=== PATIENT | female | born 1950 | race Caucasian/White ===

== ENCOUNTER → 2018-08-26 16:52 | Outpatient (CLI) | payer MEDICARE, OTHER, SELFPAY ==
--- NOTE | 2018-08-26 | BRBX_PTH ---
PATIENT: ANDRE LUTHER LOC: [facility] U#:[id number] AGE/SX: 75/F ROOM: RE08/26/[address]: Dr. Phillip Yan MD : 1950 BED: DIS: SPEC #: [id number] RECD: 08/26/18 16:48 STATUS: SHARONA ISIS #: [id number] CECILE: 08/26/18 00:[address]: Phillip Yan DEPT: SURGICAL PATHOLOGY RECD BY: Juan De La Cruz ENTERED: 08/27/18 11:06 SP TYPE: BREAST BX OTHR DR: Dr. Osiris Carlos MD Tissues: Right breast, NOS Procedures: Surgery Specimen Level IV HEADER OPERATION: US guided right breast biopsy PRE-OP DIAGNOSIS: Abnormal mammogram TISSUE SUBMITTED: Right breast biopsy ISCHEMIC TIME: 3 minutes FIXATION TIME: 27 hours MICROSCOPIC DIAGNOSIS Right breast, ultrasound-guided core biopsy: Invasive ductal carcinoma, nuclear grade 2 (1 cm in greatest length). See comment. MORGAN:mallory 08/28/18 COMMENT Immunohistochemistry ([id number]) supports the above diagnosis. ER/WA/Luh6yfb studies are being performed on sections of tumor and the results from this study will be reported separately ([id number]). Case has been reviewed in consultation with Dr. Hawley who concurs with the above diagnosis. IDC:AM MICROSCOPIC DESCRIPTION Slides are reviewed. GROSS DESCRIPTION Received is one container labeled with the patient's name and not further designated. The specimen consists of multiple elongated fragments of carlton-yellow fibroadipose tissue that in aggregate measure 1.5 x 0.7 x 0.1 cm. The entire specimen is submitted in one cassette. / MORGAN:mallory 08/27/18 TC:0 CPT: 99629 ADDENDUM ADDENDUM ADDENDUM ADDENDUM ADDENDUM ADDENDUM ADDENDUM ADDENDUM ADDENDUM ADDENDUM ADDENDUM ADDENDUM ADDENDUM 09/05/2018 11:25 ADDENDUM 09/05/2018 11:25 ADDENDUM 09/05/2018 11:25 ADDENDUM 09/05/2018 11:25 ADDENDUM 09/05/2018 11:25 This addendum is added to incorporate an outside pathology consultation report. The case was examined at [facility] (#[id number]) and the following diagnosis was rendered. Right breast, ultrasound-guided needle core biopsy: Invasive ductal carcinoma, nuclear grade 1. Estrogen receptor is positive, greater than 95% nuclei staining. Progesterone receptor is positive, 80% of nuclei staining. HER2 by IHC is negative, +0. Please see complete above mentioned consultation report in EMR
--- NOTE | 2018-08-26 | IMM_PTH ---
PATIENT: ANDRE LUTHER LOC: [facility] U#:[id number] AGE/SX: 75/F ROOM: RE08/26/[address]: Dr. Phillip Yan MD : 1950 BED: DIS: SPEC #: [id number] RECD: 08/28/18 12:09 STATUS: SHARONA REQ #: [id number] CECILE: 08/26/18 00:[address]: Phillip Yan DEPT: IMMUNOHISTOCHEMISTRY RECD BY: Imani Morales ENTERED: 08/28/18 12:11 SP TYPE: IMMUNO OTHR DR: Dr. Osiris Carlos MD Tissues: Right breast, NOS Procedures: CALPONIN-1 (add) CK5-6 (add) CK8 (add) E-CAD (add) HER2 TENZIN (add) KI-67 (add) P53 (add) NJ (add) P40 (add) ER (initial) PHYSICIAN & INSTITUTION [place] [id number] SPECIMEN INFORMATION: Tissue Source: Right breast Clinical Info: Abnormal mammogram Specimen Number: [id number] CPT code: 93172, 03198 x6, 44439 x3 METHODOLOGY: Deparaffinized sections of prefer/formalin-fixed tissue or PAP/DQ stained slides are incubated with monoclonal/polyclonal antibodies/oligonucleotide probes. Localization is made via biotin free immunoperoxidase method. Appropriate controls are performed and reacted as expected. Results on target cell population are indicated in the following table: RESULTS: ANTIBODY / CLONE RESULT E-Cad (ECH-6) positive CK8 ([id number]) positive CK5-6 (D5 & 1684) negative Ki-67 (30-9) positive, low P53 (DO-7) negative P40 (BC28) negative Calponin-1 (OX869J) negative MORPHOMETRIC ANALYSIS ER (clone 6F11) >95%, strong NJ (clone 16/1E2) >95%, moderate Her-2Neu (clone CB11) 0 The prognostic test for HER2 is performed on formalin-fixed paraffin embedded tissue. A 3+ (positive) staining pattern is defined as intense, homogeneous, complete, circumferential membranous staining in >10% of contiguous tumor cells. A similar weak (2+) staining pattern is interpreted as equivocal. ALEJANDRA follow-up testing is recommended for all equivocal cases. Positivity/negativity for ER/NJ is reported if > or < 1% of the tumor cells are immuno- reactive, respectively. The ASCO/CAP criteria is used for scoring. Reference: Journal of Clinical Oncology, 2013; 31:1862-2608 & 2010; 16:1476-5890. Duration of fixation: 27 Hrs; Sample Adequate: Yes. These assays have not been validated on decalcified tissues. Results should be interpreted with caution given the likelihood of false negativity on decalcified specimens. These tests were developed and their performance characteristics determined by [facility]. They may not have been cleared or approved by the [place]. Food and Drug Administration. The FDA has determined that such clearance or approval is not necessary. INTERPRETATION: Right breast, ultrasound-guided core biopsy: Invasive ductal carcinoma, nuclear grade 2. Positive for estrogen receptors (favorable prognostic indicator). Positive for progesterone receptors (favorable prognostic indicator). Negative for overexpression of WIQ0sqs. SJ:mallory 08/28/18
--- OUTSIDE RECORDS SUMMARY | 2018-10-22 09:24 | XMS RPT_ITS ---
:1950 Author Organization [facility] Care Team Providers Name Role Phone MIKE DURAN Attending Unavailable BONG MCCANN Attending Unavailable CARLA CHRISTIAN Referring Unavailable GEETHA GARCIA ([place]) Referring Unavailable DARINEL AKERS Referring Unavailable DARINEL AKERS Referring Unavailable DARINEL AKERS Referring Unavailable MIKE BRONSON ([facility]) Attending Unavailable MIKE DURAN Referring Unavailable MARIALUISA BROWN Attending Unavailable MARIALUISA BROWN Referring Unavailable ESTRADA REDDY Attending Unavailable INESSA LOVE Referring Unavailable INESSA LOEV Attending Unavailable INESSA LOVE Referring Unavailable INESSA LOVE Attending Unavailable CHRISTIAN AGUIRRE Attending Unavailable INESSA LOVE Referring Unavailable LETHAYER, CHRISTIAN Referring Unavailable CHRISTIAN AGUIRRE Referring Unavailable HORTENCIA YAN Attending Unavailable INESSA LOVE Referring Unavailable DARINEL AKERS Attending Unavailable HORTENCIA YAN Attending Unavailable ALANA AKERSECSHINE Brand Referring Unavailable INESSA LOVE Attending Unavailable JASENBMYER, CHRISTIAN Admitting Unavailable LETHAYERCHRISTIAN Attending Unavailable GEETHA GARCIA (PA) Referring Unavailable BONG MCCANN Referring Unavailable GROBMYERCHRISTIAN Referring Unavailable GROBMYER, CHRISTIAN Referring Unavailable GROBMYER, CHRISTIAN Admitting Unavailable GROBMYER, CHRISTIAN Attending Unavailable GEETHA GARCIA (PA) Referring Unavailable CHRISTIANO DHALIWAL Attending Unavailable CHRISTIAN AGUIRRE Referring Unavailable DARINEL AKERS Referring Unavailable Hortencia Yan Attending Unavailable Hortencia Yan Referring Unavailable Osiris Carlos Primary Care Unavailable PROBLEMS PROBLEMS DATE TYPE CONDITION / CODE ATTENDING STATUS SOURCE 09/15/2018 Active Other acute GROBMYER, Active [facility] postprocedural pain CHRISTIAN [place] / G89.18(ICD-10) Repository 09/05/2018 Active Malignant neoplasm Active [facility] of upper-outer [place] quadrant of right Repository female breast / C50.411(ICD-10) 09/05/2018 Active Estrogen receptor [facility] positive status [place] (ER+) / Repository Z17.0(ICD-10) 09/05/2018 Active Vitamin D NA Active [facility] deficiency, [place] unspecified / Repository E55.9(ICD-10) 09/05/2018 Active Disorder of breast, Active [facility] unspecified / [place] N64.9(ICD-10) Repository 09/05/2018 Active Unspecified lump in NA [facility] unspecified breast / [place] N63.0(ICD-10) Repository 08/12/2018 Active Other abnormal and NA Active [facility] inconclusive [place] findings on Repository diagnostic imaging of breast / R92.8(ICD-10) 07/28/2018 Active Asymptomatic [facility] menopausal state / [place] Z78.0(ICD-10) Repository 07/28/2018 Active Encounter for [facility] gynecological [place] examination Repository (general) (routine) without abnormal findings / Z01.419(ICD-10) 07/28/2018 Active Encounter for [facility] screening for [place] malignant neoplasm Repository of cervix / Z12.4(ICD-10) 07/28/2018 Active Encounter for [facility] screening mammogram [place] for malignant Repository neoplasm of breast / Z12.31(ICD-10) 04/08/2018 Active Dizziness and NA Active [facility] giddiness / [place] R42(ICD-10) Repository 12/19/2017 Active Unknown / MARIALUISA BROWN Active [facility] UNK(Unknown) E [place] Repository 11/01/2017 Active Pain in right lower [facility] leg / [place] M79.661(ICD-10) Repository PROCEDURES PROCEDURES No Procedure Records FoundRESULTS RESULTS [facility] SURG BREAST Observed: 09/15/2018 Status: F Source: [facility] SPECIMEN RT 5:00 PM [facility] REPOSITORY * * *Final Report* * * DATE OF EXAM: Sep 15 2018 5:00PM [facility] [place] [place] [facility] SURG BREAST SPECIMEN RT / PROCEDURE REASON: multiple diagnoses * * * * Physician Interpretation * * * * RESULT: #[id number] - [facility] NDL LOC W [place] GD RT #[id number] - [facility] SURG BREAST SPECIMEN RT DIGITAL MAMMOGRAPHY GUIDED WIRE LOCALIZATION RIGHT BREAST WITH POST DIGITAL MAMMOGRAPHIC IMAGING AND RADIOGRAPHIC SPECIMEN IMAGIN09/15/2018 HISTORY: Multiple Diagnoses The patient presents for right mammographic (crosshair) guided needle localization as recommended from recent imaging study. Pre and post localization mammographic images were obtained. Multiple Diagnoses. PATIENT CONSENT: A time out was performed immediately prior to procedure start with the radiology team, correctly identifying the patient name, date of , procedure, anatomy (including marking of site and side), patient position, relevant diagnostic and radiology test results, safety precautions, and procedure-specific equipment needs. The procedure was explained to the patient including the risks, benefits and alternatives. Medications and allergies were also reviewed. The risks, including but not limited to infection and bleeding, were reviewed by the performing physician and the patient agreed to undergo the procedure. The radiologist and technologist were present throughout the entire procedure. Audible Time Out Time: 731 Procedure Start Time: 732 Procedure Stop Time: 08 Dr. Vilchis was present during all critical and plascencia portions of the procedure and scrubbed in and immediately available to furnish services during the entire procedure. The resident programs assistant radiologist was Dr. Eisenberg. The resident programs assistant radiologist performed the following procedural tasks: Lidocaine administration, mammographic guided wire localization. Correlation is made to exams dated: 09/05/2018 breast MRI - [facility], 09/05/2018 mammogram - [facility], 08/12/2018 mammogram, 08/12/[address] - [facility], 07/28/2018 mammogram - [facility], and 07/25/2017 mammogram - [facility]. A wire localization using digital mammography guidance was performed for the marker clip located in the right breast lower outer aspect middle depth. This was described on the previous mammography report. The skin was prepped in the usual manner. Local anesthetic was administered to the access site. The localization was approached from the lateral aspect. A 10.0 cm modified Kopans hookwire apparatus was inserted adjacent to the marker under digital mammography guidance. The patient received additional local anesthetic during the procedure. Post placement digital mammographic imaging demonstrates the tip traverses adjacent to the marker. IMPRESSION: WIRE LOCALIZATION Wire localization for the marker clip in the right breast lower outer aspect middle depth was successful with no apparent post procedure complications. The imaged specimen includes the lesion, a biopsy clip, and the distal portion of the localization wire. The procedure was reviewed by a staff physician. SUMMARY: Urgent Results: Additional images confirmed that the target (with localization clip) were contained in the specimen radiograph. The results of the specimen radiograph were discussed with Dr. Sherwood in the O.R. on 09/15/18 at 1115. Lisa Eisenberg M.D. pb,joshua/robert:09/15/2018 12:54:36 Manager Clinical Pharmacy(s): RT Leena(Ephraim)(M), [facility]; RT Leana(R)(M), [facility] Multiple national specialty organizations have released breast cancer screening guidelines for women at average risk for developing breast cancer - guidelines that are based on both evidence and opinion, yet differ on when to start and how often to screen for breast cancer. With representation from Breast Imaging, Internal Medicine, Women's Health, Family Medicine, and Medical/Surgical Oncology, the [facility] has carefully reviewed the data and reached the following consensus: 1) All women should engage in shared decision-making with their providers to decide when to start and how often to screen; 2) All women should have the opportunity to start screening mammography at age 40; 3) For women ages 45-55, we recommend annual screening mammograms; 4) For women ages 55 and over, we support both the transition from an annual to a biennial interval if this aligns more with patient's values and preferences, or continuation with annual screening; 5) All women should discuss with their providers when to stop screening mammograms. Benefit Authorizer: Robert Transcribe Date/Time: Sep 15 2018 8:06A Dictated by : GURJIT EISENBERG MD This examination was interpreted and the report reviewed and electronically signed by: LISA VILCHIS MD on Sep 15 2018 12:54PM EST [id number] NURSING PROG Observed: 09/15/2018 Status: COMPLETED Source: [facility] 3:34 PM [facility] REPOSITORY HNO ID: [id number] Author: Brooke (Rn) MYLA Felix Service: Nursing Author Type: Registered Nurse Type: Nursing Progress Note Filed: 09/15/2018 3:35 PM Note Text: 1515: Assumed care of pt from MYLA Mark. Discharge instructions and prescriptions reviewed by previous nurse. ANES POST Observed: 09/15/2018 Status: COMPLETED Source: [facility] 3:30 PM [facility] REPOSITORY HNO ID: [id number] Author: Kristian Martinez Service: Anesthesiology Author Type: Anesthesiologist Type: Anesthesia PostOp Filed: 09/15/2018 3:31 PM Note Text: POST ANESTHESIA EVALUATION NOTE SERVICE DATE: 09/15/2018 SERVICE TIME: 3:31 PM : 1950 Vitals: 09/15/18 0958 09/15/18 1204 09/15/18 1300 09/15/18 1400 Temp: 37 ?C (98.6 ?F) 36.6 ?C (97.9 ?F) 36.6 ?C (97.9 ?F) 36.2 ?C (97.2 ?F) 09/15/18 1300 09/15/18 1315 09/15/18 1400 09/15/18 1430 BP: 125/62 120/57 142/68 122/62 09/15/18 1300 09/15/18 1315 09/15/18 1400 09/15/18 1430 Pulse: (!) 55 66 77 83 09/15/18 1300 09/15/18 1315 09/15/18 1400 09/15/18 1430 Resp: 09 18 18 18 09/15/18 1300 09/15/18 1315 09/15/18 1400 09/15/18 1430 SpO2: 95% 96% 98% 96% Validated Vital Signs: Yes POST ANES STATUS: No apparent anesthetic complications. The patient is appropriately hydrated with stable respiratory and cardiovascular status. Patient has safe and adequate airway control. The patient has appropriate pain relief and no significant post operative nausea or vomiting. The patient has achieved baseline mental status. Intra-Operative Events: No Significant Anesthesia Events Further assessment by Anesthesia Service: None Other Remarks: SIGNATURE: Kristian Martinez MD PATIENT NAME: Andre Luther DATE: September 15, 2018 TIME: 3:31 PM PAGER/CONTACT #: [phone] PT ED Observed: 09/15/2018 Status: COMPLETED Source: [facility] 2:03 PM [facility] REPOSITORY HNO ID: [id number] Author: Deedee (Rn) MYLA Munoz Service: (none) Author Type: Registered Nurse Type: Patient Education Filed: 09/15/2018 2:34 PM Note Text: PATIENT EDUCATION TOPIC: PROCEDURE / SURGERY: Procedure/Surgery: PATIENT NAME: Andre Luther PATIENT LOCATION: [place] [address]/[place] [address] READINESS TO LEARN COGNITIVE ABILITY: Alert and oriented MOTIVATION TO LEARN: Eager FAMILY SUPPORT: High - Very involved in pt care INSTRUCTION PROVIDED TO: Patient and family member PATIENT LEARNS BEST BY: Multiple methods FACTORS AFFECTING LEARNING: None PHYSICAL LIMITATIONS AFFECTING LEARNING: None LEARNING RESPONSE DIAGNOSIS: ADULT: Well Adult PATIENT/FAMILY RESPONSE: Verbalizes understanding of: MEDICAL REGIMEN-Importance of following prescribed medical regimen POST-OPERATIVE INSTRUCTIONS-Correct actions to take to reduce postoperative complications POST-PROCEDURE INSTRUCTIONS-Correct actions to take to reduce post procedure complications -Patient instructed to not resume any of her vitamins until 1 week postop per primary team. METHOD OF INSTRUCTION: Written instruction - handouts Verbal instruction FOLLOW-UP PLAN: Patient instructed to call with any further issues Follow-up with Primary Care Contact information given. INSTRUCTIONAL AIDS USED: NA SUPPLEMENTAL MATERIAL PROVIDED TO PATIENT: None REFERRAL (RECOMMENDATION): None Electronically Signed By: Deedee Munoz RN PLAN OF CARE Observed: 09/15/2018 Status: COMPLETED Source: [facility] 12:31 PM [facility] REPOSITORY HNO ID: [id number] Author: Joan Akers (Blue Print Control Clerk) Service: (none) Author Type: (none) Type: Plan of Care Filed: 09/15/2018 12:31 PM Note Text: ENVIRONMENTAL ATTORNEY BEDSIDE DELIVERY SURVEY 1. Patient to use [facility] Bedside Delivery - NO prefer own pharmacy 2. If fax, patient would like us to fax prescriptions to Pharmacy of choice a. Pharmacy: b. Location: c. Phone: 3. Insurance card on file - NO 4. Credit card for payment - NO Per yellow sticker OPERATIVE NO Observed: 09/15/2018 Status: COMPLETED Source: [facility] 11:33 AM [facility] REPOSITORY HNO ID: [id number] Author: Christian Aguirre Service: General Surgery Author Type: Physician Type: Operative Report Filed: 09/15/2018 11:36 AM Note Text: OPERATIVE/PROCEDURE REPORT LOG ID: [id number] SURGERY/PROCEDURE DATE: 09/15/2018 INCISION/PROCEDURE START TIME: 10:51 AM INCISION CLOSE/PROCEDURE END TIME: 11:38 AM SURGEON(S)/PROCEDURALIST(S) AND SPORTS TEAM MANAGER(S): Surgeon(s) and Role: * Christian Aguirre - Primary Physician Telecom Network Manager: Geetha Garcia (Pa) SURGERY/PROCEDURE(S): Right partial mastectomy with wire localization Right deep axillary sentinel node biopsy Right breast injection of dye for LN mapping ANESTHESIA: General SURGERY/PROCEDURE DETAILS: The patient was taken to the OR and placed supine on the OR table. 1 huddle and 1 timeout were performed. Antibiotics was given IV within 30 minute prior to the incision x 1 dose only. After anesthesia was administered, the right breast and axillae were?prepped and draped in a standard sterile fashion. I confirmed positioning of the patient with the nurse and anesthesiologist. ?I injected blue dye into the right breast for LN?mapping. ?I made a small incision in right axillary area and dissected into the right deep axilla. I removed the deep sentinel node tissue?which was?hot and blue. The node was?sent for frozen which was negative. I confirmed hemostasis and closed the wound in layers. There were no clinically suspicious nodes in the axillary area. I then made an incision in the right outer breast with scalpel and performed the lumpectomy sharply. I removed the tumor marked by the wire with clear gross margins. I obtained 6?additional cavity margins which were sent for permanent section oriented. I obtained a specimen radiograph which confirmed the clip in the specimen. The lumpectomy was sent for permanent section. ?I?placed clips to mike the lumpectomy cavity. ?I carefully?confirmed hemostasis. The wound was closed in layers in usual fashion. Sponge and instrument counts were are reportedly correct x 2 at the conclusion of this portion of the?case. A sterile dressing was applied. PRE-OP/PRE-PROCEDURE DIAGNOSIS: right breast cancer POST-OP/POST-PROCEDURE DIAGNOSIS: same ESTIMATED BLOOD LOSS: 40 mls SPECIMENS: to pathology IMPLANTABLE DEVICES: None DRAINS: None COMPLICATIONS: None PARTICIPATION IN SURGERY/PROCEDURE: I performed the procedure with assistance. AMI Garcia was the resident programs assistant. There was no resident available to assist with this case. SIGNATURE: Christian Aguirre MD PATIENT NAME: Andre Luther DATE: September 15, 2018 TIME: 11:33 AM PAGER/CONTACT #: [phone] Observed: 09/15/2018 Status: COMPLETED Source: [facility] 10:53 AM [facility] REPOSITORY O ID: [id number] Author: Tika Wood Mamm-T Service: (none) Author Type: (none) Type: Progress Notes Filed: 09/15/2018 10:57 AM Note Text: Double Identification Patient's idenity was verified by name and : Yes Procedure: Mammogram Needle Localization Site Verification: right No Nursing No Allergies ALLERGIES Allergen Reactions - Doxycycline Hyclate Intolerance Reflux - Cephalosporins Rash - Codeine GI Upset - Dust - Ragweed - Howie [Other] Is the patient having any pain? None Physician, Nurse, Technologist: Tika Wood Mamm-T Focus review of allergies and medicines done at consent PREOPERATIVE/PROCEDURAL VERIFICATION: Patient verified by: Name, Medical Record Number and Date of Procedure to be performed: Mammogram Needle Localization Site of the procedure confirmed:Yes Site:right Patient position: Sitting Equipment/implant present:Wire and Imaging Data Staff involved: Mitesh VILCHIS MD Relevant documentation, images, implants or special equipment present: Yes MARKING THE SITE: Procedural site verified by:Physically marking the site on or near incision site, with persistent marker and remains visible once patient prepped. PROCEDURAL TIME OUT: All team activity stops Time out verification includes:Audible time-out documented: Yes. Time: 7:32 Two Patient Identifiers Correct side and site marking Accurate Consent Agreement on the procedure to be done Correct Positioning Imaging and Test Results Properly Labeled and Displayed Safety Precautions Based on Patient History or Medication Alcohol-based skin prep unit dose applicator used: ChloraPrep No soaking of the patient's hair or linens noted Excess prep absorbed by sterile towels Towels removed prior to draping NUMBER OF SPECIMENS SENT TO LAB: 0 Sign in Communication: Completed Time Out: Team Confirms the Correct Patient, Correct Procedure, Correct Site and Site Marking, Correct Position (if applicable). Time: 7:32 Affirmation of Time Out: N/A Sign Out Discussion: Completed PT ED Observed: 09/15/2018 Status: COMPLETED Source: [facility] 9:52 AM [facility] REPOSITORY HNO ID: [id number] Author: Joy Cantu RN Service: Nursing Author Type: Registered Nurse Type: Patient Education Filed: 09/15/2018 9:52 AM Note Text: PRE OP LEARNING ASSESSMENT PROCEDURE/SURGERY: SURGERY: safety protocols READINESS TO LEARN COGNITIVE ABILITY: Alert and oriented MOTIVATION TO LEARN: Eager FAMILY SUPPORT: High - Very involved in pt care PATIENT LEARNS BEST BY: Individual Instruction Verbal Instruction FACTORS AFFECTING LEARNING: None PHYSICAL LIMITATIONS AFFECTING LEARNING: None Electronically Signed By: Joy Cantu RN In Department: HOSP MAIN M021 NM LYMPH NODE Observed: 09/15/2018 Status: F Source: [facility] IMAGING 9:14 AM [facility] REPOSITORY * * *Final Report* * * DATE OF EXAM: Sep 15 2018 9:14AM N 0033 - NM LYMPH NODE IMAGING / PROCEDURE REASON: multiple diagnoses * * * * Physician Interpretation * * * * BREAST LYMPHOSCINTIGRAPHY: HISTORY: Newly diagnosed right-sided breast cancer. Assess for sentinel lymph node. TECHNIQUE: Prior to radiopharmaceutical administration, the injection site was verified with the electronic medical record and with the nuclear reactor operator. Patient medications and drug allergies were reviewed and no contraindication to administration of lidocaine was identified. Skin of the right breast was cleansed with iodophor and alcohol. 470 microcuries of filtered technetium-99m sulfur colloid combined with 40 mg Lidocaine were injected in three aliquots into the retroareolar tissue of the right breast. RESULT: No discrete foci of activity are seen to suggest possible sentinel lymph node sites. IMPRESSION: NO SENTINAL LYMPH NODE IS IDENTIFIED AT THE TIME OF IMAGING. Benefit Authorizer: PSCB Transcribe Date/Time: Sep 15 2018 9:32A Dictated by : MAINOR GAY MD This examination was interpreted and the report reviewed and electronically signed by: HORTENCIA DERAS MD on Sep 15 2018 9:40AM EST [id number] Observed: 09/15/2018 Status: COMPLETED Source: [facility] 8:57 AM [facility] REPOSITORY HNO ID: [id number] Author: Chirag Morin [facility] Service: (none) Author Type: (none) Type: Progress Notes Filed: 09/15/2018 9:01 AM Note Text: RADIOLOGY SERVICE PROGRESS NOTE SERVICE DATE: 09/15/2018 SERVICE TIME: 9:01 AM PATIENT IDENTITY VERIFICATION COMPLETED USING TWO (2) METHODS: Patient confirmed name and Date of verbally. PATIENT GENDER DATA: .female : No ALLERGIES: Reviewed and unchanged MEDICATIONS REVIEWED: Not applicable PATIENT RELEVANT IMPLANT DATA REVIEWED: Not Applicable CREATININE: Creatinine Date Value Ref Range Status 09/05/2018 0.51 (L) 0.58 - 0.96 mg/dL Final 04/08/2018 0.75 0.58 - 0.96 mg/dL Final 09/13/2017 0.77 0.58 - 0.96 mg/dL Final Creatinine (POCT) Date Value Ref Range Status 09/05/2018 0.80 0.7 - 1.4 mg/dL Final eGFR-All Other Races Date Value Ref Range Status 09/05/2018 >60 . Final Comment: eGFR (Estimated GFR) Units of measure: mL/min/1.73 meters squared eGFR is derived from the reexpressed MDRD Study equation using the following parameters: serum creatinine, age, gender and race. The creatinine assay has been calibrated to be traceable to IDMS. An eGFR <60 mL/min/1.73m2 for >3 months is consistent with chronic kidney disease. Refer to KDOQI guidelines for clinical interpretation. In patients with unstable renal function, e.g. those with acute kidney injury, the eGFR may not accurately reflect actual GFR. eGFR- Date Value Ref Range Status 09/05/2018 >60 Final P.O.C.T. RESULTS: N/A September 15, [address] PERFORMED: No IV SITE: NM only - not applicable, oral or physician administered agents given to patient POST EXAM PIV STATUS: Not applicable PROCEDURE TYPE: NM INJECT: lympho scan. 470 microcuries Tc99m SULFUR COLLOID . No other medications given.. ADMINISTRATION TIME: 845 PATIENT DISCHARGED TO: Ambulatory patient, left [place] department area. A Diagnostic radioactive procedure has taken place, with no further precautions necessary other than routine body substance precautions. More information regarding radiation safety can be found using this link: [email or web address] SIGNATURE: Chirag Morin [facility] PATIENT NAME: Andre Luther DATE: September 15, 2018 TIME: 9:01 AM PAGER/CONTACT #: [facility] NDL LOC W [place] Observed: 09/15/2018 Status: F Source: [facility] GD RT 8:14 AM [facility] REPOSITORY * * *Final Report* * * DATE OF EXAM: Sep 15 2018 8:14AM [facility] 0635 - [place] NDL LOC [place] GD RT / PROCEDURE REASON: multiple diagnoses * * * * Physician Interpretation * * * * RESULT: #[id number] - [place] NDL LOC [place] GD RT #[id number] - [facility] SURG BREAST SPECIMEN RT DIGITAL MAMMOGRAPHY GUIDED WIRE LOCALIZATION RIGHT BREAST WITH POST DIGITAL MAMMOGRAPHIC IMAGING AND RADIOGRAPHIC SPECIMEN IMAGIN09/15/2018 HISTORY: Multiple Diagnoses The patient presents for right mammographic (crosshair) guided needle localization as recommended from recent imaging study. Pre and post localization mammographic images were obtained. Multiple Diagnoses. PATIENT CONSENT: A time out was performed immediately prior to procedure start with the radiology team, correctly identifying the patient name, date of , procedure, anatomy (including marking of site and side), patient position, relevant diagnostic and radiology test results, safety precautions, and procedure-specific equipment needs. The procedure was explained to the patient including the risks, benefits and alternatives. Medications and allergies were also reviewed. The risks, including but not limited to infection and bleeding, were reviewed by the performing physician and the patient agreed to undergo the procedure. The radiologist and technologist were present throughout the entire procedure. Audible Time Out Time: 731 Procedure Start Time: 732 Procedure Stop Time: 802 Dr. Vilchis was present during all critical and plascencia portions of the procedure and scrubbed in and immediately available to furnish services during the entire procedure. The resident programs assistant radiologist was Dr. Eisenberg. The resident programs assistant radiologist performed the following procedural tasks: Lidocaine administration, mammographic guided wire localization. Correlation is made to exams dated: 09/05/2018 breast MRI - [facility], 09/05/2018 mammogram - [facility], 08/12/2018 mammogram, 08/12/2018 ultrasound - [facility], 07/28/2018 mammogram - [facility], and 07/25/2017 mammogram - [facility]. A wire localization using digital mammography guidance was performed for the marker clip located in the right breast lower outer aspect middle depth. This was described on the previous mammography report. The skin was prepped in the usual manner. Local anesthetic was administered to the access site. The localization was approached from the lateral aspect. A 10.0 cm modified Kopans hookwire apparatus was inserted adjacent to the marker under digital mammography guidance. The patient received additional local anesthetic during the procedure. Post placement digital mammographic imaging demonstrates the tip traverses adjacent to the marker. IMPRESSION: WIRE LOCALIZATION Wire localization for the marker clip in the right breast lower outer aspect middle depth was successful with no apparent post procedure complications. The imaged specimen includes the lesion, a biopsy clip, and the distal portion of the localization wire. The procedure was reviewed by a staff physician. SUMMARY: Urgent Results: Additional images confirmed that the target (with localization clip) were contained in the specimen radiograph. The results of the specimen radiograph were discussed with Dr. Sherwood in the O.R. on 09/15/18 at 1115. Lisa Eisenberg M.D. ,[facility]:09/15/2018 12:54:36 Manager Clinical Pharmacy(s): RT Leena(R)(M), [facility]; RT Leana(R)(Esthela), [facility] Multiple national specialty organizations have released breast cancer screening guidelines for women at average risk for developing breast cancer - guidelines that are based on both evidence and opinion, yet differ on when to start and how often to screen for breast cancer. With representation from Breast Imaging, Internal Medicine, Women's Health, Family Medicine, and Medical/Surgical Oncology, the [facility] has carefully reviewed the data and reached the following consensus: 1) All women should engage in shared decision-making with their providers to decide when to start and how often to screen; 2) All women should have the opportunity to start screening mammography at age 40; 3) For women ages 45-55, we recommend annual screening mammograms; 4) For women ages 55 and over, we support both the transition from an annual to a biennial interval if this aligns more with patient's values and preferences, or continuation with annual screening; 5) All women should discuss with their providers when to stop screening mammograms. Benefit Authorizer: Robert Transcribe Date/Time: Sep 15 2018 8:06A Dictated by : GURJIT EISENBERG MD This examination was interpreted and the report reviewed and electronically signed by: LISA VILCHIS MD on Sep 15 2018 12:54PM EST [id number] CBC Collected: 09/05/2018 Status: F Source: VASS 4:09 PM [facility] REPOSITORY TYPE CODE TESTS RESULT OUT OF REFERENCE UNITS RANGE LAB WBC 3.70-11.00 k/uL WBC 5.68 LAB RBC 3.90-5.20 m/uL RBC 4.52 LAB HGB 11.5-15.5 g/dL Hemoglobin 15.2 LAB HCT 36.0-46.0 % Hematocrit 44.8 LAB MCV 80.0-100.0 fL MCV 99.1 LAB MCH 26.0-34.0 pG MCH 33.6 LAB MCHC 30.5-36.0 g/dL MCHC 33.9 LAB RDWCV 11.5-15.0 % RDW-CV 12.3 LAB PLTCT 150-400 k/uL Platelet Count 232 LAB MPV 9.0-12.7 fL MPV 11.1 LAB ABSNUC <0.01 k/uL Absolute nRBC <0.01 Performed By: #### CBC #### [facility] [address] [place], [place] [address] COMP METABOLIC PANEL Collected: 09/05/2018 Status: F Source: VASS 4:09 PM [facility] REPOSITORY TYPE CODE TESTS RESULT OUT OF REFERENCE UNITS RANGE LAB TP 6.3-8.0 g/dL Protein, Total 7.7 LAB ALB 3.9-4.9 g/dL Albumin 4.6 LAB CA 8.5-10.2 mg/dL Calcium, Total 9.1 LAB TBIL 0.2-1.3 mg/dL Bilirubin, Total 0.6 LAB ALKP 34-123 U/L Alkaline Phosphatase 77 Result Comment: Results may be falsely decreased due to interference by hemolysis. Suggest reorder as clinically indicated. LAB AST 13-35 U/L High AST 83 Result Comment: Results may be falsely increased due to interference by hemolysis. Suggest reorder as clinically indicated. LAB GLU 74-99 mg/dL High Glucose 144 Result Comment: The [place] Diabetes Association (ADA) provides guidance for cutoff values for fasting glucose and random glucose. The ADA defines fasting as no caloric intake for at least 8 hours. Fas ting plasma glucose results between 100 to 125 mg/dL indicate increased risk for diabetes (prediabetes). Fasting plasma glucose results greater than or equal to 126 mg/dL meet the criteria for diagnosis of diabetes. In the absence of unequivocal hyperglycemia, results should be confirmed by repeat testing. In a patient with classic symptoms of hyperglycemia or hyperglycemic crisis, random plasma glucose results greater than or equal to 200 mg/dL meet the criteria for diagnosis of diabetes. Reference: Standards of Medical Care in Diabetes 2016, [place] Diabetes Association. Diabetes Care. 2016.39(Suppl 1). LAB BUN 7-21 mg/dL BUN 16 LAB CRET 0.58-0.96 mg/dL 0.51 Low Creatinine LAB NA 136-144 mmol/L Sodium 138 LAB K 3.7-5.1 mmol/L Unable to assay. Potassium Specimen significantly hemolyzed. LAB CL 97-105 mmol/L Chloride 105 LAB CO2 22-30 mmol/L CO2 25 LAB AGAP 9-18 mmol/L Anion 8 Low Gap LAB ALT 7-38 U/L ALT 32 Result Comment: Results may be falsely increased due to interference by hemolysis. Suggest reorder as clinically indicated. LAB GFRAA eGFR- Amer. >60 LAB GFRNAA . eGFR-All Other Races >60 Result Comment: eGFR (Estimated GFR) Units of measure: mL/min/1.73 meters squared eGFR is derived from the reexpressed MDRD Study equation using the following parameters: serum creatinine, age, gender and race. The creatinine assay has been calibrated to be traceable to IDMS. An eGFR <60 mL/min/1.73m2 for >3 months is consistent with chronic kidney disease. Refer to KDOQI guidelines for clinical interpretation. In patients with unstable renal function, e.g. those with acute kidney injury, the eGFR may not accurately reflect actual GFR. Performed By: #### CMP, PTHI, VITD #### [facility] [facility] [address] [place], [place] [address] PTH, INTACT Collected: 09/05/2018 Status: F Source: VASS 4:09 PM [facility] REPOSITORY TYPE CODE TESTS RESULT OUT OF REFERENCE UNITS RANGE LAB PTH 15-65 pg/mL Unable to assay. PTH, Specimen Intact significantly hemolyzed. Result Comment: Account Credited Called to CESIA [id number] 09/08/18 IRINA Performed By: #### CMP, PTHI, VITD #### [facility] [facility] [address] [place], [place] [address] VITAMIN D 25 HYDROXY Collected: 09/05/2018 Status: F Source: VASS 4:09 PM [facility] REPOSITORY TYPE CODE TESTS RESULT OUT OF REFERENCE UNITS RANGE LAB VITD 31.0-80.0 ng/mL Low Vitamin D 25 28.9 Hydroxy Result Comment: Classification of 25 [place] Vitamin D status: Insufficiency/Moderate Deficiency: < or = 30 ng/mL Sufficiency/Optimal Levels: 31 to 80 ng/mL Toxicity: > 100 ng/mL Test performed by chemiluminescent immunoassay. Performed By: #### CMP, PTHI, VITD #### [facility] [address] [place], [place] [address] CNOV Observed: 09/05/2018 Status: COMPLETED Source: VASS 3:00 PM [facility] REPOSITORY Office Visit (RADBMN) ANDRE LUTHER ([id number]) 1950 F Date Time Provider Department 09/05/18 3:00 PM CHRISTIANO DHALIWAL RADBMN During your visit today, we recorded the following information about you: Maria A Dooley LPN, GUERA 09/05/2018 10:02 AM Signed Reviewed and confirmed with patient that there were no changes in the the nursing assessment and vitals that were completed on September 05, 2018 during previous provider appointment. GUERA Barnett MD 09/06/2018 8:57 AM Signed Radiation Oncology - New Patient/Consult Note PATIENT NAME: Andre Luther PATIENT REQUESTING PROVIDER: Christian Aguirre MD. DIAGNOSIS: 68 year old female with invasive ductal carcinoma of the Right breast, UOQ, ER-positive, NC-positive and Her2/robby not amplified, s/p biopsy. Cancer Staging No matching staging information was found for the patient. HPI: 68 year old female who presents with above diagnosis, for an opinion regarding the role of radiation therapy in the management of the patient's disease. Final recommendations will be communicated back to the requesting physician by way of the shared medical record, or letter to requesting physician via US mail. The patient reports on screening mammogram she was found to have possible focal asymmetry located in the Right breast. Mammogram/ultrasound demonstrated: IMPRESSION: INCOMPLETE: NEEDS ADDITIONAL IMAGING EVALUATION The irregular asymmetry in the right breast is indeterminate. ?An ultrasound is recommended. ULTRASOUND OF RIGHT BREAST: 08/12/2018 RESULT: Comparison is made to exams dated: ?07/28/2018 mammogram - [facility], 07/25/2017 mammogram - [facility], and 07/17/2016 mammogram - [facility]. Ultrasound of the right breast was performed. ?Harley scale images of the real-time examination were reviewed. There is an irregular area in the right breast upper outer aspect middle depth. ?This irregular area displays posterior acoustic shadowing. IMPRESSION: SUSPICIOUS OF MALIGNANCY The irregular area in the right breast is at a moderate suspicion for malignancy. ?An ultrasound guided biopsy is recommended. Ultrasound guided core needle biopsy on 08/28/2018 revealed: FINAL DIAGNOSIS [facility], [place], [place], [id number], 08/28/2018 Right breast, ultrasound-guided needle core biopsy - Invasive ductal carcinoma, nuclear grade 1. - Estrogen receptor is positive greater than 95% nuclei staining, outside slide reviewed. - Progesterone receptor is positive 80% of nuclei staining, outside slide reviewed. - HER2 by immunohistochemistry is negative +0, outside slide reviewed. The patient has been referred to us for consideration of radiotherapy options in the management of her disease. Prior radiation therapy or collagen vascular disease: No status: Post-menopausal. ALLERGIES Allergen Reactions - Doxycycline Hyclate Intolerance Reflux - Cephalosporins Rash - Codeine GI Upset - Dust - Ragweed - Howie [Other] PAST MEDICAL HISTORY Diagnosis Date - Asthma - Macular cyst, hole, or pseudohole of retina Both eyes - Osteopenia after menopause - Shingles PAST SURGICAL HISTORY Procedure Laterality Date - BREAST BIOPSY INCISIONAL RIGHT Right 07/2018 - COLONOSCOPY 07/2007 - DISCISSION,2ND CATARACT,LASER 06/26/12 Yag Capsulotomy OS - nevus 1980 face. - VITRECTOMY FOR MACULAR HOLE 06/06/2011 L eye. - VITRECTOMY,MECHANICAL 02-20-12 Pars [place]ana Vitrectomy ,MP, PCIOL OD FAMILY HISTORY Problem Relation Age of Onset - Heart Father - Lipids Father High Cholesterol - Cataract Mother - other (osteopenia) Mother Osteopenia - Blood Clots Daughter - other (Macular Degeneration) Maternal Grandfather FILENET ARCHITECT HISTORY: Obstetric History T2 L2 SAB0 TAB0 Ectopic0 Multiple0 Live Births0 Comment: Menarche: [age]yr; Age at 1st : 24; Post menopausal- age 50-50 Social History Marital status: Spouse name: Carlos Alberto Years of education: 12 Number of children: 2 Occupational History Occupation Employer Comment Retired Social History Main Topics Smoking status: Never Smoker Smokeless tobacco: Never Used Alcohol use: No Drug use: No Sexual activity: Yes Partners with: Male Comment: Post Menopausal Social History Narrative 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 Has her house to take care of Exercise. Stationary bike 5 miles few times a week/ Can't swim, walking bothers her knees. COMPLETE REVIEW OF SYSTEMS: GENERAL: Negative for weight loss, fevers, chills, or night sweats. HEENT: Negative for sudden vision or hearing changes. NECK: Negative for masses in the neck. RESPIRATORY: Negative for cough or shortness of breath. CARDIAC: Negative for chest pain, palpitations, murmurs, or syncopal episodes. GI: Negative for nausea, vomiting, diarrhea, constipation, blood per rectum, or melena. : Negative for dysuria, hematuria, urgency, frequency or incontinence. MUSCULOSKELETAL: Negative for limitations in movement, pain, or swelling. NEURO: Negative for dizziness, headache, weakness or numbness. HEMATOLOGIC: Negative for bleeding or easy bruising. SKIN: Negative for rashes or other skin changes. PHYSICAL EXAM: VS: There were no vitals taken for this visit. KPS: 90 General Appearance: Alert and oriented. No acute distress. HEENT: NCAT. Sclera anicteric. Neck: Normal ROM. Chest: No respiratory distress. Musculoskeletal: No edema. Normal ROM in extremities. Neuro: No focal deficits. Skin: No rashes noted Breast: deferred. ASSESSMENT AND PLAN: 68 year old female with invasive ductal carcinoma of the Right breast, UOQ, ER-positive, NC-positive and Her2/robby not amplified, s/p biopsy. She is also seeing Dr. Aguirre today to discuss surgical options. We discussed the indication for radiation therapy depending on surgical options and margo status. We also discussed the options for WBI vs APBI. Plan to see patient again after surgery. The?rationale, logistics, benefits, risks, side effects, and alternatives of radiotherapy were reviewed with patient. The supervising attending physician for this visit was Dr. Christiano Dhaliwal. Sara Sumner MD, PhD Resident Physician Department of Radiation Oncology Attending Note: ? Patient seen and evaluated with Dr. Sumner. Agree with above note. I discussed mastectomy and breast conservation. I discussed indications for RT following each. The logistics of radiation were discussed including acute, subacute, and chronic toxicities. ?Cardiac sparing was discussed. The risks, benefits, alternatives, consent and personnel of radiation therapy were fully discussed with the patient. Will follow up post-operatively. ? Christiano Dhaliwal MD cc: Inessa Love MD [address] [place] [address] [place] [address] [place] [id number] [facility] [address] Referring Provider: CHRISTIAN AGUIRRE [[id number]] Allergies As of Date: 09/05/2018 Noted Allergy Reaction DOXYCYCLINE HYCLATE 04/01/2018 5 - Intolerance Comments: Reflux CEPHALOSPORINS 01/19/2008 2 - Rash CODEINE 01/10/2007 8 - GI Upset DUST 01/13/2007 RAGWEED 01/13/2007 Howie [Other] 01/13/2007 Date Reviewed: 09/05/2018 Reviewed by: Andre (Myla) MYLA Barnett - Fully Assessed Reason for Visit: New Patient [172] Primary Visit Diagnosis:Malignant neoplasm of upper-outer quadrant of right breast in female, estrogen receptor positive (HCC) [C50.411, Z17.0] Order(s):[facility] [[id number]] Order #: [id number]. #:[id number]: [id number] Prescriptions as of 09/05/2018 Sig: FLAXSEED 1,000 MG CAPSULE Take by mouth twice daily. VITAMINS A,C,R-AZRF-IBOYDV 7* Take 1 tablet by mouth twice * X ESTRADIOL 0.01% (0.1 MG/GRAM)* Use small amount at vaginal o* FOLIC ACID ORAL Take by mouth once daily. ALBUTEROL SULFATE HFA 90 MCG/* Inhale 2 Puffs as instructed * FLUTICASONE 50 MCG/ACTUATION * Use 1 [place] in each nostril o* ETODOLAC 400 MG TABLET Take 1 tablet by mouth twice * CHOLECALCIFEROL (VITAMIN D3) * Take 1 capsule by mouth once * * GLUCOSAMINE 750 MG-CHONDROITN* Take 1 tablet by mouth twice * * ARTIFICIAL TEARS (DEXTRAN 70-* as necessary * FISH OIL 500 MG CAPSULE Take two(2) capsule daily. * MULTIVITAMIN TABLET Take one(1) tablet daily. Problem List As Of Date 09/05/2018 Noted Resolved Solar Lentigines [L81.4] INVALID FOR*06/22/2014 Seborrheic Keratosis [L82.1] INVALID FOR*06/22/2014 Nobles Angiomas [D18.01] INVALID FOR*06/22/2014 Cutaneous skin tags [L91.8] INVALID FOR*06/22/2014 Bilateral pseudophakia [Z96.1] INVALID FOR*09/20/2017 Pain in joint, lower leg [M25.569] INVALID FOR*09/20/2017 PCO (posterior capsular opacification), left [H*INVALID FOR*09/20/2017 After-cataract, obscuring vision [H26.499] INVALID FOR*09/20/2017 Postmenopausal atrophic vaginitis [N95.2] INVALID FOR* Primary osteoarthritis of left knee [M17.12] INVALID FOR* Mild intermittent asthma without complication [*INVALID FOR* Anal or rectal pain [K62.89] INVALID FOR*09/20/2017 Osteopenia [M85.80] INVALID FOR* Malignant neoplasm of upper-outer quadrant of r*INVALID FOR* Breast cancer, right breast (HCC) [C50.911] INVALID FOR* More... Visit Notes: >> Maria A Dooley LPN Fri Sep 05, 2018 10:02 AM Status: Signed Reviewed and confirmed with patient that there were no changes in the the nursing assessment and vitals that were completed on September 05, 2018 during previous provider appointment. Maria A Dooley LPN Encounter Status:Closed by CHRISTIANO DHALIWAL MD on 09/06/18 MRI BREAST WO/W Observed: 09/05/2018 Status: F Source: VASS IVCON SHIRA 2:32 PM [facility] REPOSITORY * * *Final Report* * * DATE OF EXAM: Sep 05 2018 2:32PM ABM [id number] - MRI BREAST WO/W IVCON SHIRA / PROCEDURE REASON: multiple diagnoses * * * * Physician Interpretation * * * * #[id number] - MRI BREAST WO/W IVCON SHIRA BREAST MRI OF BOTH BREASTS: 09/05/2018 HISTORY: Patient with newly diagnosed right breast invasive ductal carcinoma. MRI performed for extent of/occult disease. RESULT: Comparison is made to exams dated: 09/05/2018 mammogram - [facility], 08/12/2018 mammogram - [facility], 07/28/2018 mammogram - [facility], 08/12/2018 ultrasound, 07/25/2017 mammogram - [facility], and 07/17/2016 mammogram - [facility]. Interpretation of this MRI was correlated with available mammograms, ultrasounds, and clinical information. MRI images were obtained with a dedicated breast coil. Post processing was performed including 3D multiplanar reconstruction. TECHNIQUE: The patient was studied using the Sentinelle dedicated breast coil in the Siemens 1.5 Nery scanner. Initial axial STIR imaging was carried out followed by axial T1-weighted GRE imaging both before and after IV administration of 12 ml of Dotarem. Subsequently, subtraction imaging and 3-D reconstruction were completed on an independent workstation. An additional 4 minute high resolution sequence was performed after the first two 1 minute post-contrast sequences. FINDINGS: Bilateral background breast enhancement is minimal. There is 1.6 cm x 1.8 cm x 1.2 cm irregular mass with an irregular spiculated margin in the right breast at 10 o'clock middle depth. This shows heterogeneous enhancement. There is associated biopsy clip. This is best seen on AGFA series 10, image 51 (axial subtraction). It measures slightly larger than estimated mammographically/sonographically. There is no abnormal enhancement extending to the nipple, skin, or pectoralis muscle. There is no suspicious mass, abnormal enhancement, distortion, or other significant abnormality in the left breast. There are no abnormalities seen in the axillary nodes region or internal mammary nodes. IMPRESSION: KNOWN BIOPSY PROVEN MALIGNANCY No MRI evidence of malignancy in the left breast. The 1.6 cm x 1.8 cm x 1.2 cm irregular mass in the right breast is consistent with the known carcinoma and is a known biopsy positive for malignancy. A surgical consult is recommended. SUMMARY: The patient is under the care of Dr. Aguirre for surgical management of known right breast cancer. Karina courtney/robert:09/05/2018 15:23:06 Manager Clinical Pharmacy(s): RT Janet(R), [facility] [place] MRI BI-RADS: 6 Known biopsy proven malignancy Multiple national specialty organizations have released breast cancer screening guidelines for women at average risk for developing breast cancer - guidelines that are based on both evidence and opinion, yet differ on when to start and how often to screen for breast cancer. With representation from Breast Imaging, Internal Medicine, Women's Health, Family Medicine, and Medical/Surgical Oncology, the [facility] has carefully reviewed the data and reached the following consensus: 1) All women should engage in shared decision-making with their providers to decide when to start and how often to screen; 2) All women should have the opportunity to start screening mammography at age 40; 3) For women ages 45-55, we recommend annual screening mammograms; 4) For women ages 55 and over, we support both the transition from an annual to a biennial interval if this aligns more with patient's values and preferences, or continuation with annual screening; 5) All women should discuss with their providers when to stop screening mammograms. Benefit Authorizer: Robert Transcribe Date/Time: Sep 05 2018 2:17P Dictated by : KARINA PADRON MD This examination was interpreted and the report reviewed and electronically signed by: KARINA PADRON MD on Sep 05 2018 3:23PM EST [id number] PROGRESS Observed: 09/05/2018 Status: COMPLETED Source: VASS 2:15 PM [facility] REPOSITORY HNO ID: [id number] Author: Julio C Whalen Service: (none) Author Type: (none) Type: Progress Notes Filed: 09/05/2018 2:17 PM Note Text: Radiology Service Progress Note PATIENT NAME: Andre Luther DATE OF SERVICE: September 05, 2018 TIME: 2:17 PM PATIENT IDENTITY VERIFICATION COMPLETED USING TWO (2) METHODS: Patient confirmed name verbally and Date of . PATIENT GENDER DATA: Female. status: : No status: NO. PATIENT RELEVANT IMPLANT DATA REVIEWED: Yes RADIOLOGY DEPARTMENT: MR; Exam(s) Completed: Chest: Breast PERIPHERAL IV DATA: Site assessment: Clean,Dry and Intact, Site disposition Left in for next appointment SIGNED BY: Julio C Whalen September 05, 2018 2:17 PM PROGRESS Observed: 09/05/2018 Status: COMPLETED Source: VASS 2:09 PM [facility] REPOSITORY HNO ID: [id number] Author: Andre (Rn) MYLA Barnett Service: (none) Author Type: Registered Nurse Type: Progress Notes Filed: 09/05/2018 2:11 PM Note Text: Radiology Service Progress Note PATIENT NAME: Andre Luther DATE OF SERVICE: September 05, 2018 TIME: 2:09 PM PATIENT WEIGHT: 136 LBS PATIENT IDENTITY VERIFICATION COMPLETED USING TWO (2) METHODS: Patient confirmed name verbally and ID band matches. and Patient confirmed name verbally. PATIENT GENDER DATA: Female. status: : No status: NO. CONTRAST INDUCED NEPHROPATHY RISK FACTORS: Patient age > 60 years CREATININE: Creatinine Date Value Ref Range Status 04/08/2018 0.75 0.58 - 0.96 mg/dL Final 09/13/2017 0.77 0.58 - 0.96 mg/dL Final 09/11/2016 0.80 0.58 - 0.96 mg/dL Final eGFR-All Other Races Date Value Ref Range Status 04/08/2018 >60 . Final Comment: eGFR (Estimated GFR) Units of measure: mL/min/1.73 meters squared eGFR is derived from the reexpressed MDRD Study equation using the following parameters: serum creatinine, age, gender and race. The creatinine assay has been calibrated to be traceable to IDMS. An eGFR <60 mL/min/1.73m2 for >3 months is consistent with chronic kidney disease. Refer to KDOQI guidelines for clinical interpretation. In patients with unstable renal function, e.g. those with acute kidney injury, the eGFR may not accurately reflect actual GFR. eGFR- Date Value Ref Range Status 04/08/2018 >60 Final P.O.C.T. RESULTS: POC done: Yes, See Lab Tab September 05, 2018 TREATMENT: No Hydration needed. ALLERGIES: Reviewed and unchanged CONTRAST ALLERGY: NO. IV SITE: Ambulatory: A peripheral IV was started in the Left forearm with a Angio cath: 22 gauge. IV SITE APPEARANCE: Clean,Dry and Intact SIGNED BY: Andre Barnett RN September 05, 2018 2:09 PM CNOV Observed: 09/05/2018 Status: COMPLETED Source: VASS 12:30 PM [facility] REPOSITORY Office Visit (BRCRCA) ANDRE LUTHER ([id number]) 1950 F Date Time Provider Department 09/05/18 12:30 PM CHRISTIAN AGUIRRE During your visit today, we recorded the following information about you: Christian Aguirre MD 09/06/2018 1:43 PM Signed NEW BREAST CANCER - INITIAL SURGICAL VISIT SERVICE DATE: 09/05/2018 REFERRING PROVIDER: Inessa Love MD [id number] [facility] [id number] Consult requested for an opinion regarding the evaluation and treatment of breast cancer. My final impression and recommendations will be communicated back to the requesting physician by way of the shared medical record or letter via US mail. SUBJECTIVE: REASON FOR TODAY'S VISIT: Breast Cancer Evaluation HISTORY of PRESENT ILLNESS: Andre J Homa is a 68 year old female who presents for an evaluation of a new diagnosis of right breast cancer. She recently had abnormal mammography of the right breast on 07/28/18. Diagnosis was made at [facility] by means of ultrasound-guided core biopsy of Right breast 08/28/18. The pathology report showed Infiltrating Ductal Carcinoma Grade 1, ER positive, NC positive, HER2 non-amplified. Patient denies additional symptoms. HISTORY OF BREAST PROCEDURE(S): No prior history. PAST MEDICAL HISTORY: PAST MEDICAL HISTORY Diagnosis Date - Asthma - Macular cyst, hole, or pseudohole of retina Both eyes - Osteopenia after menopause - Shingles PAST SURGICAL HISTORY: PAST SURGICAL HISTORY Procedure Laterality Date - BREAST BIOPSY INCISIONAL RIGHT Right 07/2018 - COLONOSCOPY 07/2007 - DISCISSION,2ND CATARACT,LASER 06/26/12 Yag Capsulotomy OS - nevus 1980 face. - VITRECTOMY FOR MACULAR HOLE 06/06/2011 L eye. - VITRECTOMY,MECHANICAL 02-20-12 [place] Vitrectomy ,MP, PCIOL OD OBSTETRIC RELATED HISTORY: Patient did not breast feed Age at of First Child: 24 years of age. Age at Onset of Menses: 11-12 years of age. Age at Menopause: 48-50 years of age. P: 2 No LMP recorded. Patient is postmenopausal. Exogenous Hormone Use: The Patient used Control Pills for a total of 10 years and discontinued this in her late 20's early 30's. The Patient used Hormone Replacement Therapy for 1 year. FAMILY HISTORY: FAMILY HISTORY Problem Relation Age of Onset - Heart Father - Lipids Father High Cholesterol - Cataract Mother - other (osteopenia) Mother Osteopenia - other (Macular Degeneration) Maternal Grandfather The patient is not of Ashkenazic Ancestry SOCIAL HISTORY: Social History Marital status: Spouse name: Carlos Alberto Years of education: 12 Number of children: 2 Occupational History Occupation Employer Comment Retired Social History Main Topics Smoking status: Never Smoker Smokeless tobacco: Never Used Alcohol use: No Drug use: No Social History Narrative 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 Has her house to take care of Exercise. Stationary bike 5 miles few times a week/ Can't swim, walking bothers her knees. ACTIVE PROBLEM LIST Osteopenia - 07/28/2018 Primary Osteoarthritis of Left Knee - 08/09/2015 Mild Intermittent Asthma Without Complication - 08/09/2015 Postmenopausal Atrophic Vaginitis - 06/22/2014 CURRENT MEDICATIONS: flaxseed 1,000 mg cap Take by mouth twice daily. vit A,C,A-Zmzq-Nquxzi (PRESERVISION AREDS) 7,160-113-100 wnff-ag-hhsq tab Take 1 tablet by mouth twice daily. estradiol (ESTRACE) 0.01 % (0.1 mg/gram) vaginal cream Use small amount at vaginal opening for 4-6 weeks then 1-2 times a week FOLIC ACID ORAL Take by mouth once daily. albuterol HFA (VENTOLIN HFA) 90 mcg/actuation inhaler Inhale 2 Puffs as instructed every 4 hours as needed. fluticasone (FLONASE) 50 mcg/actuation nasal spray Use 1 [place] in each nostril once daily. FOR ALLERGIC NASAL SX. etodolac (LODINE) 400 mg tablet Take 1 tablet by mouth twice daily. Cholecalciferol, Vitamin D3, 2,000 unit cap Take 1 capsule by mouth once daily. Lbnx-Hbpm-BDN#4-C-Knmd-Trevon-Bor (OSTEO BI-FLEX) 750-625-30 mg Tab Take 1 tablet by mouth twice daily. dextran 70/hypromellose(ARTIFICIAL TEARS EYE DROPS) as necessary omega-3 fatty acids(FISH OIL 500 MG CAP) Take two(2) capsule daily. MULTIVITAMIN TAB Take one(1) tablet daily. ALLERGIES Allergen Reactions - Doxycycline Hyclate Intolerance Reflux - Cephalosporins Rash - Codeine GI Upset - Dust - Ragweed - Howie [Other] REVIEW OF SYSTEMS: GENERAL: No weight loss, malaise or fevers HEENT: Negative for frequent or significant headaches, No changes in hearing or vision, no nose bleeds or other nasal problems RESPIRATORY: Negative for cough, hemoptysis, wheezing, COPD, dyspnea or shortness of breath CARDIOVASCULAR: Negative for chest pain, leg swelling, hypertension, CHF or palpitations GASTROINTESTINAL: No nausea, vomiting, or diarrhea GENITOURINARY: No history of dysuria, frequency or incontinence GYNECOLOGICAL: Positive for vaginal dryness and decreased libido MUSCULOSKELETAL: Negative for joint pain or swelling, back pain or muscle pain INTEGUMENTARY: Denies chronic skin conditions. PSYCHOLOGICAL: Denies history of psychiatric illness. Patient feels she is coping well with recent Breast Cancer diagnosis. Negative for sleep disturbance, mood disorder and recent psychosocial stressors. All other reviewed and negative other than HPI. OBJECTIVE: PHYSICAL EXAM: There were no vitals taken for this visit. There is no height or weight on file to calculate BMI. GENERAL:well-nourished, healthy, alert and oriented x 3, calm SKIN:warm, dry, skin color, texture, turgor normal HEAD/EYES:normocephalic, atraumatic and anicteric NECK: supple, no cervical or supraclavicular adenopathy RESPIRATORY: Respirations regular AND non-labored and CTAB CARDIAC: RRR. No murmurs, rubs, or gallops. ABDOMEN: soft, nondistended. No hepatomegaly. MUSCULOSKELETAL: No observed limitations in range of motion of upper extremities. Patient ambulates independently BREASTS: The Patient was examined in the upright and supine positions. There are no significant fibrocystic changes. Patient's cup size is B. LEFT BREAST: The breast skin and nipple areolar complexes appear normal without retraction or lesions. There is no nipple discharge. There is no dominant mass or clinical abnormality noted in left breast. RIGHT BREAST: The breast skin and nipple areolar complexes appear normal without retraction or lesions. There is no nipple discharge. There is no dominant mass or clinical abnormality noted in right breast. There is some bruising to biopsy site. LEFT REGIONAL LYMPH NODES: There is no concerning supraclavicular, infraclavicular or axillary lymphadenopathy RIGHT REGIONAL LYMPH NODES: There is no concerning supraclavicular, infraclavicular or axillary lymphadenopathy IMAGING TO DATE: Mammogram: b/l screening 07/28/18, right diagnostic 08/12/18 Ultrasound: right diagnostic 08/12/18 BILATERAL SCREENING MAMMOGRAM: 07/28/18 IMPRESSION: INCOMPLETE: NEEDS ADDITIONAL IMAGING EVALUATION The possible focal asymmetry in the right breast is indeterminate. ? Additional views are recommended. Maty Priest M.D., lp/penrad:07/28/2018 16:55:59 Manager Clinical Pharmacy: Olive ERICKSON)(Esthela), [facility] letter sent: Additional Imaging Needed Mammogram BI-RADS: 0 Incomplete: needs additional imaging evaluation MAMMOGRAM OF RIGHT BREAST: 08/12/18 IMPRESSION: INCOMPLETE: NEEDS ADDITIONAL IMAGING EVALUATION The irregular asymmetry in the right breast is indeterminate. ?An ultrasound is recommended. ULTRASOUND OF RIGHT BREAST: 08/12/2018 RESULT: Comparison is made to exams dated: ?07/28/2018 mammogram - [facility], 07/25/[address] [facility], and 07/17/2016 mammogram - [facility]. Ultrasound of the right breast was performed. ?Harley scale images of the real-time examination were reviewed. There is an irregular area in the right breast upper outer aspect middle depth. ?This irregular area displays posterior acoustic shadowing. IMPRESSION: SUSPICIOUS OF MALIGNANCY The irregular area in the right breast is at a moderate suspicion for malignancy. ?An ultrasound guided biopsy is recommended. Patient also had Right Diagnostic Mammogram here today to check for clip placement (09/05/18): IMPRESSION: KNOWN BIOPSY PROVEN MALIGNANCY The irregular focal asymmetry in the right breast is consistent with the known carcinoma and is a known biopsy positive for malignancy. ?A surgical consult is recommended. ?Biopsy clip is in appropriate expected position. SUMMARY: The patient is scheduled to see Dr. Aguirre today for surgical consultation. Karina courtney/robert:09/05/2018 12:04:14 Manager Clinical Pharmacy(s): RT Phillip(R)(M), [facility] Mammogram BI-RADS: 6 Known biopsy proven malignancy PATHOLOGY RESULTS: Specimen #: [id number]* Submitting Physician: CHRISTIAN AGUIRRE MD FINAL DIAGNOSIS [place], [place], [id number], 08/28/2018 Right breast, ultrasound-guided needle core biopsy - Invasive ductal carcinoma, nuclear grade 1. - Estrogen receptor is positive greater than 95% nuclei staining, outside slide reviewed. - Progesterone receptor is positive 80% of nuclei staining, outside slide reviewed. - HER2 by immunohistochemistry is negative +0, outside slide reviewed. MARYA/robin 09/04/2018 ? ? Gricelda Longo M.D. (Electronic Signature) GENETIC TESTING: Not indicated Assessment ASSESSMENT: CLINICAL STAGE RIGHT BREAST: T1,N0,M0. Stage 1A: (T1-T1mi, N0, M0) PLAN: DIAGNOSIS: No diagnosis found. I have examined Ms. Luther and reviewed the physical findings, imaging and pathology reports with her. A discussion was held with the patient regarding the local-regional, as well as systemic treatment of her Breast Cancer. We discussed role of breast conservation surgery or mastectomy, indications and risks of sentinel lymph node biopsy, possibility of axillary lymph node dissection, breast reconstruction and role of systemic and radiation therapy. Ms. Luther will be scheduled for right breast surgery and is agreeable to the plan of care. She would like surgery as soon as possible. She was scheduled for Dr. Aguirre's earliest available surgery date 09/15/18. Patient will have MRI as scheduled. Instructed to have labs and EKG done in [place]. Will have patient meet with team RN later today for teaching. PROCEDURE: Right Needle Localized and Partial Mastectomy with Excision of [place] Nodes. She likely will be candidate for adjuvant partial breast radiation pending final surgical pathology. IMAGING ORDERED TODAY: MRI previously ordered. Will have performed as scheduled. REFERRAL(S) for breast cancer treatment planning considerations: None All questions were answered and the patient had no further concerns at this time Ms. Luther was given our contact information if she has any further questions or concerns. Scribed by Geetha Garcia PA-C and reviewed by Christian Aguirre MD Attending Note: I have personally performed a face to face assessment of this Patient, which included an interview, physical exam, and discussion of the Breast Imaging, Assessment and Plan. I have reviewed and confirmed the history and plascencia findings as documented by the Physician Telecom Network Manager and edited as appropriate. Other additions or changes: As edited Signature: Christian Aguirre MD Director, Breast Center Section Head, Surgical Oncology human resources partner [facility] Date: 09/06/2018 Time: 1:42 PM Maria A Dooley LPN, GUERA 09/05/2018 10:02 AM Signed Reviewed and confirmed with patient that there were no changes in the the nursing assessment and vitals that were completed on September 05, 2018 during previous provider appointment. GUERA Barnett RN, RN 09/05/2018 12:27 PM Signed Patient was referred by: Dr. Yan Did patient bring outside records to appt today? : Films: Sent in by other facility Pathology: Sent in by other facility Reports: Sent in by other facility Last mammogram on: 07/28/18 Results:see report Patient current bra size: 34C Coping: It is normal to feel some distress when you have cancer. On a scale of 0-10 please indicate the number that best describes your level of distress on the average over the past week. 04/08 Referred to social work: No, decline at this time Is the patient active on [employer] Yes Electronically Signed By: Brooke Flores RN In Department: BREAST CENTER REVIEW OF PATIENT HISTORY: Obstetric History T2 L2 SAB0 TAB0 Ectopic0 Multiple0 Live Births0 FAMILY HISTORY Problem Relation Age of Onset - Heart Father - Lipids Father High Cholesterol - Cataract Mother - other (osteopenia) Mother Osteopenia - other (Macular Degeneration) Maternal Grandfather PAST MEDICAL HISTORY Diagnosis Date - Asthma - Macular cyst, hole, or pseudohole of retina Both eyes - Osteopenia after menopause - Shingles PAST SURGICAL HISTORY Procedure Laterality Date - BREAST BIOPSY INCISIONAL RIGHT Right 07/2018 - COLONOSCOPY 07/2007 - DISCISSION,2ND CATARACT,LASER 06/26/12 Yag Capsulotomy OS - nevus 1980 face. - VITRECTOMY FOR MACULAR HOLE 06/06/2011 L eye. - VITRECTOMY,MECHANICAL 02-20-12 [place] Vitrectomy ,MP, PCIOL OD Social History Marital status: Spouse name: Carlos Alberto Years of education: 12 Number of children: 2 Occupational History Occupation Employer Comment Retired Social History Main Topics Smoking status: Never Smoker Smokeless tobacco: Never Used Alcohol use: No Drug use: No Social History Narrative 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 Has her house to take care of Exercise. Stationary bike 5 miles few times a week/ Can't swim, walking bothers her knees. Referring Provider: INESSA LOVE [[id number]] Allergies As of Date: 09/05/2018 Noted Allergy Reaction DOXYCYCLINE HYCLATE 04/01/2018 5 - Intolerance Comments: Reflux CEPHALOSPORINS 01/19/2008 2 - Rash CODEINE 01/10/2007 8 - GI Upset DUST 01/13/2007 RAGWEED 01/13/2007 Howie [Other] 01/13/2007 Date Reviewed: 09/05/2018 Reviewed by: Andre ReynoldsRn) MYLA Barnett - Fully Assessed Reason for Visit: New Patient [172] Primary Visit Diagnosis:Malignant neoplasm of upper-outer quadrant of right breast in female, estrogen receptor positive (HCC) [C50.411, Z17.0] Other Visit Diagnosis:Preop cardiovascular exam [Z01.810] Order(s):ECG COMPLETE W INTERPRETATION [ECG01] Order #: [id number] FUTURE COMP METABOLIC PANEL [SQCMP] Order #: [id number] FUTURE CBC [SQCBC] Order #: [id number] FUTURE TAMIKO PT ED BREAST CENTER [[id number]] Order #: [id number]: 1 NM LYMPH NODE IMAGING [[id number]] Order #: [id number] FUTURE GERARDO NDL LOC W GERARDO GD RT [[id number]] Order #: [id number] FUTURE REFER FOR ADMIT INTERVIEW [[id number]] Order #: [id number] PT EDUCATION NOC INDIVID [[id number]] Order #: [id number] SURGICAL REQUEST - ELECTIVE [[id number]] Order #: [id number]: 1 Prescriptions as of 09/05/2018 Sig: FLAXSEED 1,000 MG CAPSULE Take by mouth twice daily. VITAMINS A,C,P-KWHV-JYRKNE 7* Take 1 tablet by mouth twice * X ESTRADIOL 0.01% (0.1 MG/GRAM)* Use small amount at vaginal o* FOLIC ACID ORAL Take by mouth once daily. ALBUTEROL SULFATE HFA 90 MCG/* Inhale 2 Puffs as instructed * FLUTICASONE 50 MCG/ACTUATION * Use 1 [place] in each nostril o* ETODOLAC 400 MG TABLET Take 1 tablet by mouth twice * CHOLECALCIFEROL (VITAMIN D3) * Take 1 capsule by mouth once * * GLUCOSAMINE 750 MG-CHONDROITN* Take 1 tablet by mouth twice * * ARTIFICIAL TEARS (DEXTRAN 70-* as necessary * FISH OIL 500 MG CAPSULE Take two(2) capsule daily. * MULTIVITAMIN TABLET Take one(1) tablet daily. Problem List As Of Date 09/05/2018 Noted Resolved Solar Lentigines [L81.4] INVALID FOR*06/22/2014 Seborrheic Keratosis [L82.1] INVALID FOR*06/22/2014 Nobles Angiomas [D18.01] INVALID FOR*06/22/2014 Cutaneous skin tags [L91.8] INVALID FOR*06/22/2014 Bilateral pseudophakia [Z96.1] INVALID FOR*09/20/2017 Pain in joint, lower leg [M25.569] INVALID FOR*09/20/2017 PCO (posterior capsular opacification), left [H*INVALID FOR*09/20/2017 After-cataract, obscuring vision [H26.499] INVALID FOR*09/20/2017 Postmenopausal atrophic vaginitis [N95.2] INVALID FOR* Primary osteoarthritis of left knee [M17.12] INVALID FOR* Mild intermittent asthma without complication [*INVALID FOR* Anal or rectal pain [K62.89] INVALID FOR*09/20/2017 Osteopenia [M85.80] INVALID FOR* Malignant neoplasm of upper-outer quadrant of r*INVALID FOR* Breast cancer, right breast (HCC) [C50.911] INVALID FOR* More... Visit Notes: >> Maria A Dooley LPN SatSep 05, 2018 10:02 AM Status: Signed Reviewed and confirmed with patient that there were no changes in the the nursing assessment and vitals that were completed on September 05, 2018 during previous provider appointment. Maria A Dooley LPN >> Brooke (Myla) MYLA Mesa SatSep 05, 2018 10:04 AM Status: Signed Patient was referred by: Dr. Yan Did patient bring outside records to appt today? : Films: Sent in by other facility Pathology: Sent in by other facility Reports: Sent in by other facility Last mammogram on: 07/28/18 Results:see report Patient current bra size: 34C Coping: It is normal to feel some distress when you have cancer. On a scale of 0-10 please indicate the number that best describes your level of distress on the average over the past week. 04/08 Referred to social work: No, decline at this time Is the patient active on [employer] Yes Electronically Signed By: Brooke Flores RN In Department: BREAST CENTER REVIEW OF PATIENT HISTORY: Obstetric History T2 L2 SAB0 TAB0 Ectopic0 Multiple0 Live Births0 FAMILY HISTORY Problem Relation Age of Onset - Heart Father - Lipids Father High Cholesterol - Cataract Mother - other (osteopenia) Mother Osteopenia - other (Macular Degeneration) Maternal Grandfather PAST MEDICAL HISTORY Diagnosis Date - Asthma - Macular cyst, hole, or pseudohole of retina Both eyes - Osteopenia after menopause - Shingles PAST SURGICAL HISTORY Procedure Laterality Date - BREAST BIOPSY INCISIONAL RIGHT Right 07/2018 - COLONOSCOPY 07/2007 - DISCISSION,2ND CATARACT,LASER 06/26/12 Yag Capsulotomy OS - nevus 1980 face. - VITRECTOMY FOR MACULAR HOLE 06/06/2011 L eye. - VITRECTOMY,MECHANICAL 02-20-12 [place] Vitrectomy ,MP, PCIOL OD Social History Marital status: Spouse name: Carlos Alberto Years of education: 12 Number of children: 2 Occupational History Occupation Employer Comment Retired Social History Main Topics Smoking status: Never Smoker Smokeless tobacco: Never Used Alcohol use: No Drug use: No Social History Narrative 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 Has her house to take care of Exercise. Stationary bike 5 miles few times a week/ Can't swim, walking bothers her knees. Disposition: Return in about 7 days (around 09/12/2018) for POST OP VISIT. Follow-up and Disposition History Recorded Questionnaire: BREAST CENTER QUESTIONNAIRE C/O breast probs: -> ABNORMAL MAMMOGRAM Cmt: rt breast 2018 Hx of breast cysts? -> No Previous breast CA -> No Prior breast surgery -> No Hx of BCPs -> Yes Cmt: 10 yr Hormone replacement -> Yes Cmt: 14 yrs Breast feed babies -> NO Radiation treatment -> No caffeine use? -> Yes Cmt: very seldom Encounter Status:Closed by CHRISTIAN AGUIRRE MD on 09/06/18 PROGRESS Observed: 09/05/2018 Status: COMPLETED Source: [place] 12:15 PM [facility] REPOSITORY O ID: [id number] Author: Bong Mccann Service: (none) Author Type: Physician Type: Progress Notes Filed: 09/05/2018 12:29 PM Note Text: Breast Cancer Consult Note SERVICE DATE: September 05, 2018 CHIEF COMPLAINT: Andre Luther is a 68 year old female referred by Christian Aguirre MD, for my opinion regarding the management of screening detected breast cancer. ER/NC positive Her 2 negative. Grade 1 HISTORY OF PRESENT ILLNESS: Andre Luther is a 68 year old woman who had an abnormal mammogram leading to US which remained unclear and ultimately had biopsy which is positive for invasive ductal carcinoma. 1cm in the biopsy. She was seen by a general surgeon who referred her here. He also had her stopped the vaginal estrogen cream she had been using, [place] called the tumor grade 2 but on our review pathology called it grade 1. She has no significant past medical history except asthma which is not severe. Has a prior history of mild hypercalcemia and Vitamin D supplementation was decreased. Diagnostic Studies: Biopsy 1 Site: Right upper outer quadrant Date of Biopsy: 2017 Pathology: Infiltrating ductal carcinoma PAST MEDICAL HISTORY: PAST MEDICAL HISTORY Diagnosis Date - Asthma - Macular cyst, hole, or pseudohole of retina Both eyes - Osteopenia after menopause - Shingles PAST SURGICAL HISTORY: PAST SURGICAL HISTORY Procedure Laterality Date - BREAST BIOPSY INCISIONAL RIGHT Right 07/2018 - COLONOSCOPY 07/2007 - DISCISSION,2ND CATARACT,LASER 06/26/12 Yag Capsulotomy OS - nevus 1980 face. - VITRECTOMY FOR MACULAR HOLE 06/06/2011 L eye. - VITRECTOMY,MECHANICAL 02-20-12 [place] Vitrectomy ,MP, PCIOL OD CURRENT MEDICATIONS: flaxseed 1,000 mg cap Take by mouth twice daily. vit A,C,X-Hmht-Bswclq (PRESERVISION AREDS) 7,160-113-100 bfer-wu-etio tab Take 1 tablet by mouth twice daily. FOLIC ACID ORAL Take by mouth once daily. albuterol HFA (VENTOLIN HFA) 90 mcg/actuation inhaler Inhale 2 Puffs as instructed every 4 hours as needed. fluticasone (FLONASE) 50 mcg/actuation nasal spray Use 1 [place] in each nostril once daily. FOR ALLERGIC NASAL SX. etodolac (LODINE) 400 mg tablet Take 1 tablet by mouth twice daily. Cholecalciferol, Vitamin D3, 2,000 unit cap Take 1 capsule by mouth once daily. Guwf-Zawf-DCO#5-O-Lqku-Trevon-Bor (OSTEO BI-FLEX) 750-625-30 mg Tab Take 1 tablet by mouth twice daily. dextran 70/hypromellose(ARTIFICIAL TEARS EYE DROPS) as necessary omega-3 fatty acids(FISH OIL 500 MG CAP) Take two(2) capsule daily. MULTIVITAMIN TAB Take one(1) tablet daily. ALLERGIES/INTOLERANCES: ALLERGIES Allergen Reactions - Doxycycline Hyclate Intolerance Reflux - Cephalosporins Rash - Codeine GI Upset - Dust - Ragweed - Howie [Other] FAMILY HISTORY: FAMILY HISTORY Problem Relation Age of Onset - Heart Father - Lipids Father High Cholesterol - Cataract Mother - other (osteopenia) Mother Osteopenia - Blood Clots Daughter - other (Macular Degeneration) Maternal Grandfather SOCIAL HISTORY: Social History Marital status: Spouse name: Carlos Alberto Years of education: 12 Number of children: 2 Occupational History Occupation Employer Comment Retired Social History Main Topics Smoking status: Never Smoker Smokeless tobacco: Never Used Alcohol use: No Drug use: No Sexual activity: Yes Partners with: Male Comment: Post Menopausal Social History Narrative 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 Has her house to take care of Exercise. Stationary bike 5 miles few times a week/ Can't swim, walking bothers her knees. Employer And Job Title: No employer specified (Retired) Years Of Education Completed: 12 years Marital Status: to Carlos Alberto with 2 children PHYSICAL EXAM: BP 142/77 Pulse 78 Temp 36.6 ?C (97.9 ?F) (Oral) Resp 22 Ht 155 cm (5' 1.02) Wt 62.2 kg (137 lb 1.6 oz) SpO2 99% BMI 25.88 kg/m2 Body mass index is 25.88 kg/m?. ECO- Fully active, able to carry on all pre-disease performance w/o restriction. LABS: reviewed IMAGING: reviewed IMPRESSION: 1cm invasive ER/NC strongly positive Her 2 negative right breast cancer STAGING: Cancer Staging No matching staging information was found for the patient. PLAN: Spent 40 minutes with her and her Discussed the fact that there is no advantage to a mastectomy with the amount of disease that we currently know about. Discussed the meaning of the receptor status, the role of adjuvant therapy, the fact that she will certainly do hormonal therapy but that we can not make a definite plan until we have the final pathology. Reviewed some of the side effects of AI therapy. Reassured her that all of this information will be repeated when we see her [ost-op as she seemed somewhat overwhelmed with all that she has heard.. Vitamin D level, PTH RTC post-op SIGNATURE: Bong Mccann MD PATIENT NAME: Andre Luther DATE: 09/05/2018 TIME: 12:15 PM cc: Christian Love MD [facility] RT Observed: 09/05/2018 Status: F Source: [place] 11:41 AM [facility] REPOSITORY * * *Final Report* * * DATE OF EXAM: Sep 05 2018 11:41AM CAW [id number] - [facility] RT / PROCEDURE REASON: multiple diagnoses * * * * Physician Interpretation * * * * RESULT: #[id number] - [facility] DIAGNOSTIC RT UNILATERAL RIGHT DIGITAL DIAGNOSTIC MAMMOGRAM WITH CAD: 09/05/2018 HISTORY: Patient with newly diagnosed right breast cancer (invasive ductal CA). RESULT: TECHNIQUE: The study was acquired using full field digital technology and interpreted from soft copy. Current study was also evaluated with a Computer Aided Detection (CAD). Comparison is made to exams dated: 08/12/2018 ultrasound, 08/12/2018 mammogram - [facility], 07/28/2018 mammogram - [facility], 07/25/2017 mammogram - [facility], 07/17/2016 mammogram, and 07/12/2015 mammogram - [facility]. There are scattered fibroglandular elements in right breast. There is an irregular focal asymmetry in the right breast upper outer aspect middle depth. This correlates with ultrasound findings and the biopsy. There is a biopsy clip and architectural distortion associated with the focal asymmetry. This correlates with an irregular hypoechoic mass with posterior shadowing on prior ultrasound exam dated 08/12/2018 (this measured 1.2 x 1.4 x 1.1 cm sonographically). IMPRESSION: KNOWN BIOPSY PROVEN MALIGNANCY The irregular focal asymmetry in the right breast is consistent with the known carcinoma and is a known biopsy positive for malignancy. A surgical consult is recommended. Biopsy clip is in appropriate expected position. SUMMARY: The patient is scheduled to see Dr. Aguirre today for surgical consultation. Karina courtney/robert:09/05/2018 12:04:14 Manager Clinical Pharmacy(s): Kelsie Corrigan, RT(R)(M), [facility] Mammogram BI-RADS: 6 Known biopsy proven malignancy Multiple national specialty organizations have released breast cancer screening guidelines for women at average risk for developing breast cancer - guidelines that are based on both evidence and opinion, yet differ on when to start and how often to screen for breast cancer. With representation from Breast Imaging, Internal Medicine, Women's Health, Family Medicine, and Medical/Surgical Oncology, the [facility] has carefully reviewed the data and reached the following consensus: 1) All women should engage in shared decision-making with their providers to decide when to start and how often to screen; 2) All women should have the opportunity to start screening mammography at age 40; 3) For women ages 45-55, we recommend annual screening mammograms; 4) For women ages 55 and over, we support both the transition from an annual to a biennial interval if this aligns more with patient's values and preferences, or continuation with annual screening; 5) All women should discuss with their providers when to stop screening mammograms. Benefit Authorizer: Robert Transcribe Date/Time: Sep 05 2018 11:07A Dictated by : KARINA PADRON MD This examination was interpreted and the report reviewed and electronically signed by: KARINA PADRON MD on Sep 05 2018 12:04PM EST [id number] Observed: 09/05/2018 Status: COMPLETED Source: [facility] 11:00 AM [facility] REPOSITORY Visit (SP) Office ([facility]) ANDRE LUTHER ([id number]) 1950 F Date Time Provider Department 09/05/18 11:00 AM BONG MCC[facility] During your visit today, we recorded the following information about you: Temperature Pulse Respiration Blood pressure 97.9 degrees 78/minute 22/minute 142/77 Weight Height 62.2 kg 1.55 m Maria A Dooley LPN, LPN 09/05/2018 9:29 AM Signed Additional intake questions: Has the patient had nausea, vomiting, diarrhea, constipation, fatigue for > 1 week? None of the above Does the patient have a decreased appetite? No Does patient want to see a Manager Clinical Pharmacy? No (yes to any of above refer patient to schedulers for dietitian appointment) ) Does patient have any new or increased numbness or tingling of extremities? No Is patient interested in fertility information? NA Does patient need any prescription refills? No Electronically Signed By: GUERA Barnett MD 09/05/2018 12:29 PM Addendum Breast Cancer Consult Note SERVICE DATE: September 05, 2018 CHIEF COMPLAINT: Andre Luther is a 68 year old female referred by Christian Aguirre MD, for my opinion regarding the management of screening detected breast cancer. ER/NC positive Her 2 negative. Grade 1 HISTORY OF PRESENT ILLNESS: Andre Luther is a 68 year old woman who had an abnormal mammogram leading to US which remained unclear and ultimately had biopsy which is positive for invasive ductal carcinoma. 1cm in the biopsy. She was seen by a general surgeon who referred her here. He also had her stopped the vaginal estrogen cream she had been using, [place] called the tumor grade 2 but on our review pathology called it grade 1. She has no significant past medical history except asthma which is not severe. Has a prior history of mild hypercalcemia and Vitamin D supplementation was decreased. Diagnostic Studies: Biopsy 1 Site: Right upper outer quadrant Date of Biopsy: 2017 Pathology: Infiltrating ductal carcinoma PAST MEDICAL HISTORY: PAST MEDICAL HISTORY Diagnosis Date - Asthma - Macular cyst, hole, or pseudohole of retina Both eyes - Osteopenia after menopause - Shingles PAST SURGICAL HISTORY: PAST SURGICAL HISTORY Procedure Laterality Date - BREAST BIOPSY INCISIONAL RIGHT Right 07/2018 - COLONOSCOPY 07/2007 - DISCISSION,2ND CATARACT,LASER 06/26/12 Yag Capsulotomy OS - nevus 1980 face. - VITRECTOMY FOR MACULAR HOLE 06/06/2011 L eye. - VITRECTOMY,MECHANICAL 02-20-12 Pars [place] Vitrectomy ,MP, PCIOL OD CURRENT MEDICATIONS: flaxseed 1,000 mg cap Take by mouth twice daily. vit A,C,P-Wgbc-Nfpfak (PRESERVISION AREDS) 7,160-113-100 gjca-mo-jdca tab Take 1 tablet by mouth twice daily. FOLIC ACID ORAL Take by mouth once daily. albuterol HFA (VENTOLIN HFA) 90 mcg/actuation inhaler Inhale 2 Puffs as instructed every 4 hours as needed. fluticasone (FLONASE) 50 mcg/actuation nasal spray Use 1 [place]wood in each nostril once daily. FOR ALLERGIC NASAL SX. etodolac (LODINE) 400 mg tablet Take 1 tablet by mouth twice daily. Cholecalciferol, Vitamin D3, 2,000 unit cap Take 1 capsule by mouth once daily. Idbh-Rfbp-LMB#8-Y-Luwh-Trevon-Bor (OSTEO BI-FLEX) 750-625-30 mg Tab Take 1 tablet by mouth twice daily. dextran 70/hypromellose(ARTIFICIAL TEARS EYE DROPS) as necessary omega-3 fatty acids(FISH OIL 500 MG CAP) Take two(2) capsule daily. MULTIVITAMIN TAB Take one(1) tablet daily. ALLERGIES/INTOLERANCES: ALLERGIES Allergen Reactions - Doxycycline Hyclate Intolerance Reflux - Cephalosporins Rash - Codeine GI Upset - Dust - Ragweed - Howie [Other] FAMILY HISTORY: FAMILY HISTORY Problem Relation Age of Onset - Heart Father - Lipids Father High Cholesterol - Cataract Mother - other (osteopenia) Mother Osteopenia - Blood Clots Daughter - other (Macular Degeneration) Maternal Grandfather SOCIAL HISTORY: Social History Marital status: Spouse name: Carlos Alberto Years of education: 12 Number of children: 2 Occupational History Occupation Employer Comment Retired Social History Main Topics Smoking status: Never Smoker Smokeless tobacco: Never Used Alcohol use: No Drug use: No Sexual activity: Yes Partners with: Male Comment: Post Menopausal Social History Narrative 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 Has her house to take care of Exercise. Stationary bike 5 miles few times a week/ Can't swim, walking bothers her knees. Employer And Job Title: No employer specified (Retired) Years Of Education Completed: 12 years Marital Status: to Carlos Alberto with 2 children PHYSICAL EXAM: BP 142/77 Pulse 78 Temp 36.6 ?C (97.9 ?F) (Oral) Resp 22 Ht 155 cm (5' 1.02) Wt 62.2 kg (137 lb 1.6 oz) SpO2 99% BMI 25.88 kg/m2 Body mass index is 25.88 kg/m?. ECO- Fully active, able to carry on all pre-disease performance w/o restriction. LABS: reviewed IMAGING: reviewed IMPRESSION: 1cm invasive ER/NC strongly positive Her 2 negative right breast cancer STAGING: Cancer Staging No matching staging information was found for the patient. PLAN: Spent 40 minutes with her and her Discussed the fact that there is no advantage to a mastectomy with the amount of disease that we currently know about. Discussed the meaning of the receptor status, the role of adjuvant therapy, the fact that she will certainly do hormonal therapy but that we can not make a definite plan until we have the final pathology. Reviewed some of the side effects of AI therapy. Reassured her that all of this information will be repeated when we see her [ost-op as she seemed somewhat overwhelmed with all that she has heard.. Vitamin D level, PTH RTC post-op SIGNATURE: Bong Mccann MD PATIENT NAME: Andre Luther DATE: 09/05/2018 TIME: 12:15 PM cc: Christian Love MD Referring Provider: CHRISTIAN AGUIRRE [[id number]] Allergies As of Date: 09/05/2018 Noted Allergy Reaction DOXYCYCLINE HYCLATE 04/01/2018 5 - Intolerance Comments: Reflux CEPHALOSPORINS 01/19/2008 2 - Rash CODEINE 01/10/2007 8 - GI Upset DUST 01/13/2007 RAGWEED 01/13/2007 Howie [Other] 01/13/2007 Date Reviewed: 09/05/2018 Reviewed by: Maria A (Guera) GUERA Dooley - Fully Assessed Reason for Visit: New Patient [172] Primary Visit Diagnosis:Malignant neoplasm of upper-outer quadrant of right breast in female, estrogen receptor positive (HCC) [C50.411, Z17.0] Other Visit Diagnosis:Vitamin D deficiency [E55.9] Order(s):VITAMIN D 25 HYDROXY [SQVITD] Order #: [id number] FUTURE COMP METABOLIC PANEL [SQCMP] Order #: [id number] FUTURE PTH INTACT BLD [SQPTHI] Order #: [id number] FUTURE Prescriptions as of 09/05/2018 Sig: FLAXSEED 1,000 MG CAPSULE Take by mouth twice daily. VITAMINS A,C,V-WGBI-MOYESF 7* Take 1 tablet by mouth twice * FOLIC ACID ORAL Take by mouth once daily. ALBUTEROL SULFATE HFA 90 MCG/* Inhale 2 Puffs as instructed * FLUTICASONE 50 MCG/ACTUATION * Use 1 [place]wood in each nostril o* ETODOLAC 400 MG TABLET Take 1 tablet by mouth twice * CHOLECALCIFEROL (VITAMIN D3) * Take 1 capsule by mouth once * * GLUCOSAMINE 750 MG-CHONDROITN* Take 1 tablet by mouth twice * * ARTIFICIAL TEARS (DEXTRAN 70-* as necessary * FISH OIL 500 MG CAPSULE Take two(2) capsule daily. * MULTIVITAMIN TABLET Take one(1) tablet daily. Problem List As Of Date 09/05/2018 Noted Resolved Solar Lentigines [L81.4] INVALID FOR*06/22/2014 Seborrheic Keratosis [L82.1] INVALID FOR*06/22/2014 Nobles Angiomas [D18.01] INVALID FOR*06/22/2014 Cutaneous skin tags [L91.8] INVALID FOR*06/22/2014 Bilateral pseudophakia [Z96.1] INVALID FOR*09/20/2017 Pain in joint, lower leg [M25.569] INVALID FOR*09/20/2017 PCO (posterior capsular opacification), left [H*INVALID FOR*09/20/2017 After-cataract, obscuring vision [H26.499] INVALID FOR*09/20/2017 Postmenopausal atrophic vaginitis [N95.2] INVALID FOR* Primary osteoarthritis of left knee [M17.12] INVALID FOR* Mild intermittent asthma without complication [*INVALID FOR* Anal or rectal pain [K62.89] INVALID FOR*09/20/2017 Osteopenia [M85.80] INVALID FOR* Malignant neoplasm of upper-outer quadrant of r*INVALID FOR* Visit Notes: >> Maria A Dooley LPN SatSep 05, 2018 9:29 AM Status: Signed Additional intake questions: Has the patient had nausea, vomiting, diarrhea, constipation, fatigue for > 1 week? None of the above Does the patient have a decreased appetite? No Does patient want to see a Manager Clinical Pharmacy? No (yes to any of above refer patient to schedulers for dietitian appointment) ) Does patient have any new or increased numbness or tingling of extremities? No Is patient interested in fertility information? NA Does patient need any prescription refills? No PROGRESS Observed: 09/05/2018 Status: COMPLETED Source: [facility] 10:30 AM [facility] [place] REPOSITORY O ID: [id number] Author: Christiano Dhaliwal Service: (none) Author Type: Physician Type: Progress Notes Filed: 09/06/2018 8:57 AM Note Text: Radiation Oncology - New Patient/Consult Note PATIENT NAME: Andre Luther PATIENT REQUESTING PROVIDER: Christian Aguirre MD. DIAGNOSIS: 68 year old female with invasive ductal carcinoma of the Right breast, UOQ, ER-positive, NC-positive and Her2/robby not amplified, s/p biopsy. Cancer Staging No matching staging information was found for the patient. HPI: 68 year old female who presents with above diagnosis, for an opinion regarding the role of radiation therapy in the management of the patient's disease. Final recommendations will be communicated back to the requesting physician by way of the shared medical record, or letter to requesting physician via [place] mail. The patient reports on screening mammogram she was found to have possible focal asymmetry located in the Right breast. Mammogram/ultrasound demonstrated: IMPRESSION: INCOMPLETE: NEEDS ADDITIONAL IMAGING EVALUATION The irregular asymmetry in the right breast is indeterminate. ?An ultrasound is recommended. ULTRASOUND OF RIGHT BREAST: 08/12/2018 RESULT: Comparison is made to exams dated: ?07/28/2018 mammogram - [facility], 07/25/2017 mammogram - [facility], and 07/17/2016 mammogram - [facility]. Ultrasound of the right breast was performed. ?Harley scale images of the real-time examination were reviewed. There is an irregular area in the right breast upper outer aspect middle depth. ?This irregular area displays posterior acoustic shadowing. IMPRESSION: SUSPICIOUS OF MALIGNANCY The irregular area in the right breast is at a moderate suspicion for malignancy. ?An ultrasound guided biopsy is recommended. Ultrasound guided core needle biopsy on 08/28/2018 revealed: FINAL DIAGNOSIS [facility], [place], [place], [id number], 08/28/2018 Right breast, ultrasound-guided needle core biopsy - Invasive ductal carcinoma, nuclear grade 1. - Estrogen receptor is positive greater than 95% nuclei staining, outside slide reviewed. - Progesterone receptor is positive 80% of nuclei staining, outside slide reviewed. - HER2 by immunohistochemistry is negative +0, outside slide reviewed. The patient has been referred to us for consideration of radiotherapy options in the management of her disease. Prior radiation therapy or collagen vascular disease: No status: Post-menopausal. ALLERGIES Allergen Reactions - Doxycycline Hyclate Intolerance Reflux - Cephalosporins Rash - Codeine GI Upset - Dust - Ragweed - Howie [Other] PAST MEDICAL HISTORY Diagnosis Date - Asthma - Macular cyst, hole, or pseudohole of retina Both eyes - Osteopenia after menopause - Shingles PAST SURGICAL HISTORY Procedure Laterality Date - BREAST BIOPSY INCISIONAL RIGHT Right 07/2018 - COLONOSCOPY 07/2007 - DISCISSION,2ND CATARACT,LASER 06/26/12 Yag Capsulotomy OS - nevus 1980 face. - VITRECTOMY FOR MACULAR HOLE 06/06/2011 L eye. - VITRECTOMY,MECHANICAL 02-20-12 [place] Vitrectomy ,MP, PCIOL OD FAMILY HISTORY Problem Relation Age of Onset - Heart Father - Lipids Father High Cholesterol - Cataract Mother - other (osteopenia) Mother Osteopenia - Blood Clots Daughter - other (Macular Degeneration) Maternal Grandfather FILENET ARCHITECT HISTORY: Obstetric History T2 L2 SAB0 TAB0 Ectopic0 Multiple0 Live Births0 Comment: Menarche: [age]yr; Age at 1st : 24; Post menopausal- age 48-50 Social History Marital status: Spouse name: Carlos Alberto Years of education: 12 Number of children: 2 Occupational History Occupation Employer Comment Retired Social History Main Topics Smoking status: Never Smoker Smokeless tobacco: Never Used Alcohol use: No Drug use: No Sexual activity: Yes Partners with: Male Comment: Post Menopausal Social History Narrative 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 Has her house to take care of Exercise. Stationary bike 5 miles few times a week/ Can't swim, walking bothers her knees. COMPLETE REVIEW OF SYSTEMS: GENERAL: Negative for weight loss, fevers, chills, or night sweats. HEENT: Negative for sudden vision or hearing changes. NECK: Negative for masses in the neck. RESPIRATORY: Negative for cough or shortness of breath. CARDIAC: Negative for chest pain, palpitations, murmurs, or syncopal episodes. GI: Negative for nausea, vomiting, diarrhea, constipation, blood per rectum, or melena. : Negative for dysuria, hematuria, urgency, frequency or incontinence. MUSCULOSKELETAL: Negative for limitations in movement, pain, or swelling. NEURO: Negative for dizziness, headache, weakness or numbness. HEMATOLOGIC: Negative for bleeding or easy bruising. SKIN: Negative for rashes or other skin changes. PHYSICAL EXAM: VS: There were no vitals taken for this visit. KPS: 90 General Appearance: Alert and oriented. No acute distress. HEENT: NCAT. Sclera anicteric. Neck: Normal ROM. Chest: No respiratory distress. Musculoskeletal: No edema. Normal ROM in extremities. Neuro: No focal deficits. Skin: No rashes noted Breast: deferred. ASSESSMENT AND PLAN: 68 year old female with invasive ductal carcinoma of the Right breast, UOQ, ER-positive, NC-positive and Her2/robby not amplified, s/p biopsy. She is also seeing Dr. Aguirre today to discuss surgical options. We discussed the indication for radiation therapy depending on surgical options and margo status. We also discussed the options for WBI vs APBI. Plan to see patient again after surgery. The?rationale, logistics, benefits, risks, side effects, and alternatives of radiotherapy were reviewed with patient. The supervising attending physician for this visit was Dr. Christiano Dhaliwal. Sara Sumner MD, PhD Resident Physician Department of Radiation Oncology Attending Note: ? Patient seen and evaluated with Dr. Sumner. Agree with above note. I discussed mastectomy and breast conservation. I discussed indications for RT following each. The logistics of radiation were discussed including acute, subacute, and chronic toxicities. ?Cardiac sparing was discussed. The risks, benefits, alternatives, consent and personnel of radiation therapy were fully discussed with the patient. Will follow up post-operatively. ? Christiano Dhaliwal MD cc: Inessa Love MD [address] [place] [address] [place] [address] [place] [id number] [facility] [id number] PROGRESS Observed: 09/05/2018 Status: COMPLETED Source: [facility] 9:26 AM [facility] REPOSITORY HNO ID: [id number] Author: Christian Aguirre Service: (none) Author Type: Physician Type: Progress Notes Filed: 09/06/2018 1:43 PM Note Text: NEW BREAST CANCER - INITIAL SURGICAL VISIT SERVICE DATE: 09/05/2018 REFERRING PROVIDER: Inessa Love MD [address] [facility] [address] Consult requested for an opinion regarding the evaluation and treatment of breast cancer. My final impression and recommendations will be communicated back to the requesting physician by way of the shared medical record or letter via US mail. SUBJECTIVE: REASON FOR TODAY'S VISIT: Breast Cancer Evaluation HISTORY of PRESENT ILLNESS: Andre Luther is a 68 year old female who presents for an evaluation of a new diagnosis of right breast cancer. She recently had abnormal mammography of the right breast on 07/28/18. Diagnosis was made at [facility] by means of ultrasound-guided core biopsy of Right breast 08/28/18. The pathology report showed Infiltrating Ductal Carcinoma Grade 1, ER positive, NC positive, HER2 non-amplified. Patient denies additional symptoms. HISTORY OF BREAST PROCEDURE(S): No prior history. PAST MEDICAL HISTORY: PAST MEDICAL HISTORY Diagnosis Date - Asthma - Macular cyst, hole, or pseudohole of retina Both eyes - Osteopenia after menopause - Shingles PAST SURGICAL HISTORY: PAST SURGICAL HISTORY Procedure Laterality Date - BREAST BIOPSY INCISIONAL RIGHT Right 07/2018 - COLONOSCOPY 07/2007 - DISCISSION,2ND CATARACT,LASER 06/26/12 Yag Capsulotomy OS - nevus 1980 face. - VITRECTOMY FOR MACULAR HOLE 06/06/2011 L eye. - VITRECTOMY,MECHANICAL 02-20-12 [place] Vitrectomy ,MP, PCIOL OD OBSTETRIC RELATED HISTORY: Patient did not breast feed Age at of First Child: 24 years of age. Age at Onset of Menses: 11-12 years of age. Age at Menopause: 48-50 years of age. P: 2 No LMP recorded. Patient is postmenopausal. Exogenous Hormone Use: The Patient used Control Pills for a total of 10 years and discontinued this in her late 20's early 30's. The Patient used Hormone Replacement Therapy for 1 year. FAMILY HISTORY: FAMILY HISTORY Problem Relation Age of Onset - Heart Father - Lipids Father High Cholesterol - Cataract Mother - other (osteopenia) Mother Osteopenia - other (Macular Degeneration) Maternal Grandfather The patient is not of Ashkenazic Ancestry SOCIAL HISTORY: Social History Marital status: Spouse name: Carlos Alberto Years of education: 12 Number of children: 2 Occupational History Occupation Employer Comment Retired Social History Main Topics Smoking status: Never Smoker Smokeless tobacco: Never Used Alcohol use: No Drug use: No Social History Narrative 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 Has her house to take care of Exercise. Stationary bike 5 miles few times a week/ Can't swim, walking bothers her knees. ACTIVE PROBLEM LIST Osteopenia - 07/28/2018 Primary Osteoarthritis of Left Knee - 08/09/2015 Mild Intermittent Asthma Without Complication - 08/09/2015 Postmenopausal Atrophic Vaginitis - 06/22/2014 CURRENT MEDICATIONS: flaxseed 1,000 mg cap Take by mouth twice daily. vit A,C,C-Wxow-Iwloux (PRESERVISION AREDS) 7,160-113-100 ydfu-yc-ifco tab Take 1 tablet by mouth twice daily. estradiol (ESTRACE) 0.01 % (0.1 mg/gram) vaginal cream Use small amount at vaginal opening for 4-6 weeks then 1-2 times a week FOLIC ACID ORAL Take by mouth once daily. albuterol HFA (VENTOLIN HFA) 90 mcg/actuation inhaler Inhale 2 Puffs as instructed every 4 hours as needed. fluticasone (FLONASE) 50 mcg/actuation nasal spray Use 1 [place] in each nostril once daily. FOR ALLERGIC NASAL SX. etodolac (LODINE) 400 mg tablet Take 1 tablet by mouth twice daily. Cholecalciferol, Vitamin D3, 2,000 unit cap Take 1 capsule by mouth once daily. Bbhl-Qxpq-LEB#5-Z-Nwfm-Trevon-Bor (OSTEO BI-FLEX) 750-625-30 mg Tab Take 1 tablet by mouth twice daily. dextran 70/hypromellose(ARTIFICIAL TEARS EYE DROPS) as necessary omega-3 fatty acids(FISH OIL 500 MG CAP) Take two(2) capsule daily. MULTIVITAMIN TAB Take one(1) tablet daily. ALLERGIES Allergen Reactions - Doxycycline Hyclate Intolerance Reflux - Cephalosporins Rash - Codeine GI Upset - Dust - Ragweed - Howie [Other] REVIEW OF SYSTEMS: GENERAL: No weight loss, malaise or fevers HEENT: Negative for frequent or significant headaches, No changes in hearing or vision, no nose bleeds or other nasal problems RESPIRATORY: Negative for cough, hemoptysis, wheezing, COPD, dyspnea or shortness of breath CARDIOVASCULAR: Negative for chest pain, leg swelling, hypertension, CHF or palpitations GASTROINTESTINAL: No nausea, vomiting, or diarrhea GENITOURINARY: No history of dysuria, frequency or incontinence GYNECOLOGICAL: Positive for vaginal dryness and decreased libido MUSCULOSKELETAL: Negative for joint pain or swelling, back pain or muscle pain INTEGUMENTARY: Denies chronic skin conditions. PSYCHOLOGICAL: Denies history of psychiatric illness. Patient feels she is coping well with recent Breast Cancer diagnosis. Negative for sleep disturbance, mood disorder and recent psychosocial stressors. All other reviewed and negative other than HPI. OBJECTIVE: PHYSICAL EXAM: There were no vitals taken for this visit. There is no height or weight on file to calculate BMI. GENERAL:well-nourished, healthy, alert and oriented x 3, calm SKIN:warm, dry, skin color, texture, turgor normal HEAD/EYES:normocephalic, atraumatic and anicteric NECK: supple, no cervical or supraclavicular adenopathy RESPIRATORY: Respirations regular AND non-labored and CTAB CARDIAC: RRR. No murmurs, rubs, or gallops. ABDOMEN: soft, nondistended. No hepatomegaly. MUSCULOSKELETAL: No observed limitations in range of motion of upper extremities. Patient ambulates independently BREASTS: The Patient was examined in the upright and supine positions. There are no significant fibrocystic changes. Patient's cup size is B. LEFT BREAST: The breast skin and nipple areolar complexes appear normal without retraction or lesions. There is no nipple discharge. There is no dominant mass or clinical abnormality noted in left breast. RIGHT BREAST: The breast skin and nipple areolar complexes appear normal without retraction or lesions. There is no nipple discharge. There is no dominant mass or clinical abnormality noted in right breast. There is some bruising to biopsy site. LEFT REGIONAL LYMPH NODES: There is no concerning supraclavicular, infraclavicular or axillary lymphadenopathy RIGHT REGIONAL LYMPH NODES: There is no concerning supraclavicular, infraclavicular or axillary lymphadenopathy IMAGING TO DATE: Mammogram: b/l screening 07/28/18, right diagnostic 08/12/18 Ultrasound: right diagnostic 08/12/18 BILATERAL SCREENING MAMMOGRAM: 07/28/18 IMPRESSION: INCOMPLETE: NEEDS ADDITIONAL IMAGING EVALUATION The possible focal asymmetry in the right breast is indeterminate. ? Additional views are recommended. Maty Priest M.D., lp/robert:07/28/2018 16:55:59 Manager Clinical Pharmacy: Olive NUNEZ(Ephraim)(M), [facility] letter sent: Additional Imaging Needed Mammogram BI-RADS: 0 Incomplete: needs additional imaging evaluation MAMMOGRAM OF RIGHT BREAST: 08/12/18 IMPRESSION: INCOMPLETE: NEEDS ADDITIONAL IMAGING EVALUATION The irregular asymmetry in the right breast is indeterminate. ?An ultrasound is recommended. ULTRASOUND OF RIGHT BREAST: 08/12/2018 RESULT: Comparison is made to exams dated: ?07/28/2018 mammogram - [facility], 07/25/2017 mammogram - [facility], and 07/17/2016 mammogram - [facility]. Ultrasound of the right breast was performed. ?Harley scale images of the real-time examination were reviewed. There is an irregular area in the right breast upper outer aspect middle depth. ?This irregular area displays posterior acoustic shadowing. IMPRESSION: SUSPICIOUS OF MALIGNANCY The irregular area in the right breast is at a moderate suspicion for malignancy. ?An ultrasound guided biopsy is recommended. Patient also had Right Diagnostic Mammogram here today to check for clip placement (09/05/18): IMPRESSION: KNOWN BIOPSY PROVEN MALIGNANCY The irregular focal asymmetry in the right breast is consistent with the known carcinoma and is a known biopsy positive for malignancy. ?A surgical consult is recommended. ?Biopsy clip is in appropriate expected position. SUMMARY: The patient is scheduled to see Dr. Aguirre today for surgical consultation. Karina courtney/robert:09/05/2018 12:04:14 Manager Clinical Pharmacy(s): RT Phillip(Ephraim)(M), [facility] Mammogram BI-RADS: 6 Known biopsy proven malignancy PATHOLOGY RESULTS: Specimen #: [id number]* Submitting Physician: CHRISTIAN AGUIRRE MD FINAL DIAGNOSIS [place], [place], [address], 08/28/2018 Right breast, ultrasound-guided needle core biopsy - Invasive ductal carcinoma, nuclear grade 1. - Estrogen receptor is positive greater than 95% nuclei staining, outside slide reviewed. - Progesterone receptor is positive 80% of nuclei staining, outside slide reviewed. - HER2 by immunohistochemistry is negative +0, outside slide reviewed. J/robin 09/04/2018 ? ? Gricelda Longo M.D. (Electronic Signature) GENETIC TESTING: Not indicated Assessment ASSESSMENT: CLINICAL STAGE RIGHT BREAST: T1,N0,M0. Stage 1A: (T1-T1mi, N0, M0) PLAN: DIAGNOSIS: No diagnosis found. I have examined Ms. Luther and reviewed the physical findings, imaging and pathology reports with her. A discussion was held with the patient regarding the local-regional, as well as systemic treatment of her Breast Cancer. We discussed role of breast conservation surgery or mastectomy, indications and risks of sentinel lymph node biopsy, possibility of axillary lymph node dissection, breast reconstruction and role of systemic and radiation therapy. Ms. Luther will be scheduled for right breast surgery and is agreeable to the plan of care. She would like surgery as soon as possible. She was scheduled for Dr. Aguirre's earliest available surgery date 09/15/18. Patient will have MRI as scheduled. Instructed to have labs and EKG done in [place]. Will have patient meet with team RN later today for teaching. PROCEDURE: Right Needle Localized and Partial Mastectomy with Excision of [place] Nodes. She likely will be candidate for adjuvant partial breast radiation pending final surgical pathology. IMAGING ORDERED TODAY: MRI previously ordered. Will have performed as scheduled. REFERRAL(S) for breast cancer treatment planning considerations: None All questions were answered and the patient had no further concerns at this time Ms. Luther was given our contact information if she has any further questions or concerns. Scribed by Geetha Garcia PA-C and reviewed by Christian Aguirre MD Attending Note: I have personally performed a face to face assessment of this Patient, which included an interview, physical exam, and discussion of the Breast Imaging, Assessment and Plan. I have reviewed and confirmed the history and plascencia findings as documented by the Physician Telecom Network Manager and edited as appropriate. Other additions or changes: As edited Signature: Christian Aguirre MD Director, Breast Center Section Head, Surgical Oncology human resources partner [facility] Date: 09/06/2018 Time: 1:42 PM CNCNPATED Observed: 09/05/2018 Status: COMPLETED Source: [facility] 12:00 AM [facility] REPOSITORY Education (STEPHENIE) ANDRE LUTHER ([id number]) 1950 F Date Time Provider Department 09/05/18 BROOKE MESARN) STEPHENIE Reason for Visit: Patient Education [91] Cmt: pre-op nurse surgery teaching Visit Notes: >> Brooke ReynoldsRn) MYLA Mesa SatSep 05, 2018 4:31 PM Status: Signed AMBULATORY PATIENT EDUCATION NOTE PRE-OP TEACHING PROCEDURE: Right NL PM/SNBx READINESS TO LEARN COGNITIVE ABILITY: Alert and oriented MOTIVATION TO LEARN: Interested FAMILY SUPPORT: High - Very involved in pt care INSTRUCTION PROVIDED TO: Patient and Spouse PATIENT LEARNS BEST BY: Written Instruction - Hand-outs Verbal Instruction Demonstration Multiple Methods FACTORS AFFECTING LEARNING: None PHYSICAL LIMITATIONS AFFECTING LEARNING: None LEARNING RESPONSE DIAGNOSIS: Malignant neoplasm of upper-outer quadrant of right breast in female, estrogen receptor positive METHOD OF INSTRUCTION: Written instruction - handouts Verbal instruction Demonstration-Hands on Learning PATIENT / FAMILY RESPONSE: Verbalizes understanding of: EQUIPMENT USE-Correct use of Equipment INFECTION MANAGEMENT-Signs and symptoms of an infection and importance of contacting the physician MEDICAL REGIMEN-Importance of following prescribed medical regimen PAIN MANAGEMENT-Effective strategies to manage pain in addition to pain medication PHYSICAL RESTRICTIONS-Physical restrictions and recommendations after discharge from the hospital POST-OPERATIVE INSTRUCTIONS-Correct actions to take to reduce postoperative complications PRE-OPERATIVE INSTRUCTIONS-Correct action to take to follow pre-operative instructions PATIENT SAFETY PRINCIPLES WORSENING CONDITION-Signs and symptoms of a worsening condition that warrant a call to the physician WOUND CARE-Correct procedure to perform wound care Per Breast Center guidelines the patient was given the Hibiclens liquid, and was given written instructions which include instructions to not use on the face or near the eyes. The instructions were reviewed with the patient verbalized understanding the instructions. FOLLOW-UP PLAN: Complete - No need for follow-up SUPPLEMENTAL MATERIAL: TAMIKO Program viewing instructions for the following program- lumpectomy [facility] Handout Title of written material: Following breast surgery packet - lumpectomy Your Surgical Guide for [facility] REFERRAL (RECOMMENDATION): None Electronically Signed By: Boroke Flores RN In Department: BREAST CENTER Primary Visit Diagnosis:Malignant neoplasm of upper-outer quadrant of right breast in female, estrogen receptor positive (HCC) [C50.411, Z17.0] During your visit today, we recorded the following information about you: Allergies As of Date: 09/05/2018 Noted Allergy Reaction DOXYCYCLINE HYCLATE 04/01/2018 5 - Intolerance Comments: Reflux CEPHALOSPORINS 01/19/2008 2 - Rash CODEINE 01/10/2007 8 - GI Upset DUST 01/13/2007 RAGWEED 01/13/2007 Howie [Other] 01/13/2007 Date Reviewed: 09/05/2018 Reviewed by: Andre (Rn) MYLA Barnett - Fully Assessed Prescriptions as of 09/05/2018 Sig: FLAXSEED 1,000 MG CAPSULE Take by mouth twice daily. VITAMINS A,C,L-MKQS-RWCRSC 7* Take 1 tablet by mouth twice * FOLIC ACID ORAL Take by mouth once daily. ALBUTEROL SULFATE HFA 90 MCG/* Inhale 2 Puffs as instructed * FLUTICASONE 50 MCG/ACTUATION * Use 1 [place]wood in each nostril o* ETODOLAC 400 MG TABLET Take 1 tablet by mouth twice * CHOLECALCIFEROL (VITAMIN D3) * Take 1 capsule by mouth once * * GLUCOSAMINE 750 MG-CHONDROITN* Take 1 tablet by mouth twice * * ARTIFICIAL TEARS (DEXTRAN 70-* as necessary * FISH OIL 500 MG CAPSULE Take two(2) capsule daily. * MULTIVITAMIN TABLET Take one(1) tablet daily. Encounter Status:Closed by BROOKE MESA on 09/05/18 HOSP Observed: 09/05/2018 Status: COMPLETED Source: [facility] 12:00 AM [facility] REPOSITORY Patient:Andre Luther MRN: <[id number]> Height:[Per pt 5' 1 sounds accurate[(0 m) Weight:0 lb (0 kg) Outpatient Medications as of 09/15/18: albuterol HFA (VENTOLIN HFA) 90 mcg/actuation inhaler Cholecalciferol, Vitamin D3, 2,000 unit cap dextran 70/hypromellose(ARTIFICIAL TEARS EYE DROPS) etodolac (LODINE) 400 mg tablet flaxseed 1,000 mg cap fluticasone (FLONASE) 50 mcg/actuation nasal spray FOLIC ACID ORAL Anhj-Kznk-TNU#0-D-Lmth-Trevon-Bor (OSTEO BI-FLEX) 750-625-30 mg Tab MULTIVITAMIN TAB omega-3 fatty acids(FISH OIL 500 MG CAP) vit A,C,B-Lgrq-Tcpdxn (PRESERVISION AREDS) 7,160-113-100 cxes-qw-bmid tab Admission/Clinic Administered Medications as of 09/15/18: clindamycin iv piggyback 900 mg in D5W 50 mL (CLEOCIN) lactated ringers infusion Problem List: Postmenopausal atrophic vaginitis [N95.2] Primary osteoarthritis of left knee [M17.12] Mild intermittent asthma without complication [J45.20] Osteopenia [M85.80] Malignant neoplasm of upper-outer quadrant of right breast in female, estrogen receptor positive (HCC) [C50.411, Z17.0] Breast cancer, right breast (HCC) [C50.911] Allergies: Doxycycline Hyclate Cephalosporins Codeine Dust Ragweed Howie [Other] Date Verified: 09/15/18 Lab Values Lab Value Units Date High Low POTA* Unable* mmol/L 09/05/2018 5.1 3.7 MARGARET* 44.8 % 09/05/2018 46.0 36.0 Progress Notes (MOLECULAR AND FUNCTIONAL IMAGING): Chirag Morin [facility] 09/15/2018 9:01 AM Signed RADIOLOGY SERVICE PROGRESS NOTE SERVICE DATE: 09/15/2018 SERVICE TIME: 9:01 AM PATIENT IDENTITY VERIFICATION COMPLETED USING TWO (2) METHODS: Patient confirmed name and Date of verbally. PATIENT GENDER DATA: .female : No ALLERGIES: Reviewed and unchanged MEDICATIONS REVIEWED: Not applicable PATIENT RELEVANT IMPLANT DATA REVIEWED: Not Applicable CREATININE: Creatinine Date Value Ref Range Status 09/05/2018 0.51 (L) 0.58 - 0.96 mg/dL Final 04/08/2018 0.75 0.58 - 0.96 mg/dL Final 09/13/2017 0.77 0.58 - 0.96 mg/dL Final Creatinine (POCT) Date Value Ref Range Status 09/05/2018 0.80 0.7 - 1.4 mg/dL Final eGFR-All Other Races Date Value Ref Range Status 09/05/2018 >60 . Final Comment: eGFR (Estimated GFR) Units of measure: mL/min/1.73 meters squared eGFR is derived from the reexpressed MDRD Study equation using the following parameters: serum creatinine, age, gender and race. The creatinine assay has been calibrated to be traceable to IDMS. An eGFR <60 mL/min/1.73m2 for >3 months is consistent with chronic kidney disease. Refer to KDOQI guidelines for clinical interpretation. In patients with unstable renal function, e.g. those with acute kidney injury, the eGFR may not accurately reflect actual GFR. eGFR- Date Value Ref Range Status 09/05/2018 >60 Final P.O.C.T. RESULTS: N/A September 15, [address] PERFORMED: No IV SITE: NM only - not applicable, oral or physician administered agents given to patient POST EXAM PIV STATUS: Not applicable PROCEDURE TYPE: NM INJECT: lympho scan. 470 microcuries Tc99m SULFUR COLLOID . No other medications given.. ADMINISTRATION TIME: 845 PATIENT DISCHARGED TO: Ambulatory patient, left NM department area. A Diagnostic radioactive procedure has taken place, with no further precautions necessary other than routine body substance precautions. More information regarding radiation safety can be found using this link: [email or web address] SIGNATURE: Chirag Morin [facility] PATIENT NAME: Andre Luther DATE: September 15, 2018 TIME: 9:01 AM PAGER/CONTACT #: Progress Notes (MARGARET MAIN CA 2): Andre Hardy, RN, RN 09/10/2018 1:00 PM Signed Results for ANDRE LUTHER ( ) as of 09/10/2018 12:59 Ref. Range 09/03/2018 00:00 09/05/2018 11:41 09/05/2018 14:11 09/05/2018 14:32 09/05/2018 16:09 Vitamin D 25 Hydroxy Latest Ref Range: 31.0 - 80.0 ng/mL 28.9 (L) Bong Mccann Andre (Rn) MYLA Hardy ? have her bump to 5000mgs Previous Messages ----- Message ----- From: Andre Manzanares) MYLA Hardy Sent: 09/09/2018 ? 2:57 PM To: Bong Gold [place] Patient takes 3000 IU per day of Vitamin D ----- Message ----- From: Bong Gold [place] Sent: 09/08/2018 ? 5:32 PM To: Andre Manzanares) MYLA Hardy, her Vitamin D is low. Can you verify what she is taking so we can adjust? ----- Message ----- From: , Lab Mu Oru In Sent: 09/05/2018 ? 4:31 PM To: Bong Gold [place] Contacted patient and spoke with spouse. Advised to increase Vitamin D to 5000units. Instructed to call if patient has any questions. Andre Hardy RN SURGICAL PATHOLOGY Observed: 09/03/2018 Status: F Source: [facility] 12:00 AM [facility] REPOSITORY Specimen #: [id number]* Submitting Physician: CHRISTIAN AGUIRRE MD FINAL DIAGNOSIS [facility], [place], [place], [address], 08/28/2018 Right breast, ultrasound-guided needle core biopsy - Invasive ductal carcinoma, nuclear grade 1. - Estrogen receptor is positive greater than 95% nuclei staining, outside slide reviewed. - Progesterone receptor is positive 80% of nuclei staining, outside slide reviewed. - HER2 by immunohistochemistry is negative +0, outside slide reviewed. MARYA/robin 09/04/2018 Gricelda Longo M.D. (Electronic Signature) SPECIMEN SUBMITTED A: 11 SLIDES ([id number]) CLINICAL DATA None provided. Date of Report: 09/04/2018 Date of Procedure: 09/03/2018 Date of Receipt: 09/04/2018 Submitted by: CHRISTIAN AGUIRRE MD Location: [facility] Diagnostic interpretation performed at [facility], [address] [place], [place] [id number]. CNPN Observed: 09/01/2018 Status: COMPLETED Source: [facility] 12:00 AM [facility] REPOSITORY Telephone (CRCA) ANDRE LUTHER ([id number]) 1950 F Date Time Provider Department 09/01/18 BROOKE MESA (RN) STEPHENIE During your visit today, we recorded the following information about you: Brooke Flores, RN, RN 09/01/2018 6:08 PM Signed Patient ID by Name and date: ? Called and talked with Andre Rogerslon's Azael. Introduced myself as Dr. Aguirre's Nurse cancer registry coordinator and informed patient that I am working on coordinating apt so that Ms. Churhc can be seen by the our surgical team Dr. Aguirre and Plastic surgeon / Medical onc and Rad onc. Mr. Church verbalized an understanding. Informed Mr. Church that I will give a f/u call tomorrow regarding apts date/time. ? ? Brooke Mesa RN MSN Brooke Flores, RN, RN 09/02/2018 12:50 PM Signed Talked to Imani at [facility] , pathology slide to be sent per carrier today. Report faxed-received. 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 VITAMINS A,C,Q-UKNL-CWAFFM 7* Take 1 tablet by mouth twice * ESTRADIOL 0.01% (0.1 MG/GRAM)* Use small amount at vaginal o* FOLIC ACID ORAL Take by mouth once daily. ALBUTEROL SULFATE HFA 90 MCG/* Inhale 2 Puffs as instructed * FLUTICASONE 50 MCG/ACTUATION * Use 1 [place] in each nostril o* ETODOLAC 400 MG TABLET Take 1 tablet by mouth twice * CHOLECALCIFEROL (VITAMIN D3) * Take 1 capsule by mouth once * * GLUCOSAMINE 750 MG-CHONDROITN* Take 1 tablet by mouth twice * * ARTIFICIAL TEARS (DEXTRAN 70-* as necessary * FISH OIL 500 MG CAPSULE Take two(2) capsule daily. * MULTIVITAMIN TABLET Take one(1) tablet daily. Problem List As Of Date 09/01/2018 Noted Resolved Solar Lentigines [L81.4] INVALID FOR*06/22/2014 Seborrheic Keratosis [L82.1] INVALID FOR*06/22/2014 Nobles Angiomas [D18.01] INVALID FOR*06/22/2014 Cutaneous skin tags [L91.8] INVALID FOR*06/22/2014 Bilateral pseudophakia [Z96.1] INVALID FOR*09/20/2017 Pain in joint, lower leg [M25.569] INVALID FOR*09/20/2017 PCO (posterior capsular opacification), left [H*INVALID FOR*09/20/2017 After-cataract, obscuring vision [H26.499] INVALID FOR*09/20/2017 Postmenopausal atrophic vaginitis [N95.2] INVALID FOR* Primary osteoarthritis of left knee [M17.12] INVALID FOR* Mild intermittent asthma without complication [*INVALID FOR* Anal or rectal pain [K62.89] INVALID FOR*09/20/2017 Osteopenia [M85.80] INVALID FOR* Encounter Status:Closed by BROOKE MESA on 09/01/18 PROGRESS Observed: 08/29/2018 Status: COMPLETED Source: V[facility] 5:52 PM [facility] REPOSITORY HNO ID: [id number] Author: Hortencia Yan Service: (none) Author Type: Physician Type: Progress Notes Filed: 08/30/2018 8:04 AM Note Text: FOLLOW UP VISIT - POST RIGHT ULTRASOUND GUIDED CORE BIOPSY - POSITIVE BIOPSY NAME: Andre Sharpe [facility] NO.: [id number] DATE OF SERVICE: 08/29/2018 : 1950 REFERRING PHYSICIAN: Inessa Love MD Andre is a patient I am following for abnormal right breast imaging. The patient is a 68 year old female with a complaint of an abnormal mammogram. The patient had a mammogram with ultrasound on July 28 with follow-up imaging on August 12 which demonstrated: IMPRESSION: INCOMPLETE: NEEDS ADDITIONAL IMAGING EVALUATION The irregular asymmetry in the right breast is indeterminate. ?An ultrasound is recommended. ULTRASOUND OF RIGHT BREAST: 08/12/2018 RESULT: Comparison is made to exams dated: ?07/28/2018 mammogram - [facility], 07/25/2017 mammogram - [facility], and 07/17/2016 mammogram - [facility]. Ultrasound of the right breast was performed. ?Harley scale images of the real-time examination were reviewed. There is an irregular area in the right breast upper outer aspect middle depth. ?This irregular area displays posterior acoustic shadowing. IMPRESSION: SUSPICIOUS OF MALIGNANCY The irregular area in the right breast is at a moderate suspicion for malignancy. ?An ultrasound guided biopsy is recommended. SUMMARY: Note: I cannot be entirely certain that the asymmetry on mammogram and the area of shadowing on ultrasound correspond to the same area. I would recommend ultrasound-guided biopsy. Clip placement after biopsy could be correlated with the mammographic findings. ?Another option would be to needle localize the finding on ultrasound. Followed by mammogram images to see if these 2 areas correspond prior to surgery. Sulaiman syed/robert:08/12/2018 16:54:07 Manager Clinical Pharmacy(s): Hteal Anderson, RT(R)(M), [facility]; Aydee Merrill, [facility] letter sent: Abnormal ? OVERALL STUDY BIRADS: 4c Suspicious abnormality - moderate concern but not classic for malignancy Benefit Authorizer: Robert Transcribe Date/Time: Aug 12 2018 ?3:03P Dictated by : SULAIMAN MOSHER DO This examination was interpreted and the report reviewed and electronically signed by: SULAIMAN MOSHER DO on Aug 12 2018 ?4:54PM ?EST Results-Findings * * *Final Report* * * DATE OF EXAM: Aug 12 2018 ?4:10PM ? WRU ? [id number] ?- ?[facility] US BREAST LTD RT ?/ PROCEDURE REASON: Abnormal mammogram ?? ? * * * * Physician Interpretation * * * * ?#[id number] - [facility] DIAGNOSTIC RT #[id number] - [facility] US BREAST LTD RT UNILATERAL RIGHT DIGITAL DIAGNOSTIC MAMMOGRAM WITH CAD: 08/12/2018 HISTORY: Abnormal Mammogram/call back right /priors available for comparison Abnormal Mammogram. RESULT: TECHNIQUE: The study was acquired using full field digital technology and interpreted from soft copy. Current study was also evaluated with a Computer Aided Detection (CAD). Comparison is made to exams dated: ?07/28/2018 mammogram - [facility], 07/25/2017 mammogram - [facility], and 07/17/2016 mammogram - [facility]. ?There are scattered fibroglandular elements in right breast. There is an irregular asymmetry in the right breast upper outer aspect middle depth. No other significant masses or calcifications are seen in the breast. The patient denies a history of breast masses. She does not perform a self breast exam routinely. She notes no skin changes. She denies nipple discharge. She notes no axillary masses. She notes no family history of breast problems. She notes no significant breast trauma or breast difficulties in the past. The patient has had 2 pregnancies. Her last mammogram was July 25, 2017. Her last menstrual period was around age 50. Her first menstrual period was at age age 14. I performed a ultrasound guided core biopsy of the right breast biopsy for her abnormal mammogram on August 26, 2018. The pathology returned as: MICROSCOPIC DIAGNOSIS Right breast, ultrasound-guided core biopsy: Invasive ductal carcinoma, nuclear grade 2 (1 cm in greatest length). See comment. RESULTS: ANTIBODY / CLONE RESULT E-Cad (ECH-6) positive CK8 (22qdptS12) positive CK5-6 (D5 AND 1684) negative Ki-67 (30-9) positive, low P53 (DO-7) negative P40 (BC28) negative Calponin-1 (BG627X) negative MORPHOMETRIC ANALYSIS ER (clone 6F11) >95%, strong NC (clone 16/1E2) >95%, moderate Her-2Neu (clone CB11) 0 The patient notes slight bruising since the procedure. VITALS: There were no vitals taken for this visit. On examination, the Right breast biopsy site is clean, dry, and intact. There is slight bruising of the site. Assessment IMPRESSION: status post ultrasound guided core biopsy of the right breast biopsy for Right breast invasive ductal carcinoma. PLAN: If Andre notes any problems, she should contact me immediately. We extensively discussed her diagnosis of ductal carcinoma. She was able to ask questions and those questions were answered. She was given a handout extensively detailing breast cancer treatment. Discussion with the patient concerning her diagnosis lasted 60 minutes. I plan to obtain a breast MRI to aid in planning for the most appropriate definitive surgical procedure. The patient is considering mastectomy with reconstruction. I will refer her to [facility] breast center for evaluation and discussion concerning those options. I also recommended she discontinue use of her vaginal estrogen cream. Diagnoses: (C50.411, Z17.0) Malignant neoplasm of upper-outer quadrant of right breast in female, estrogen receptor positive (HCC) (primary encounter diagnosis) Return to Clinic: The patient is instructed to follow- up with me Saturday to have additional discussions concerning her diagnosis. Hortencia Yan MD CNOV Observed: 08/29/2018 Status: COMPLETED Source: V[facility] 3:00 PM [facility] REPOSITORY Office Visit (GENSWS) HOMAANDRE Mojica ([id number]) 1950 F Date Time Provider Department 08/29/18 3:00 PM HORTENCIA YAN During your visit today, we recorded the following information about you: Hortencia Yan MD 08/30/2018 8:04 AM Addendum FOLLOW UP VISIT - POST RIGHT ULTRASOUND GUIDED CORE BIOPSY - POSITIVE BIOPSY NAME: Andre Luther CLINIC NO.: [id number] DATE OF SERVICE: 08/29/2018 : 1950 REFERRING PHYSICIAN: Inessa Love MD Andre is a patient I am following for abnormal right breast imaging. The patient is a 68 year old female with a complaint of an abnormal mammogram. The patient had a mammogram with ultrasound on July 28 with follow-up imaging on August 12 which demonstrated: IMPRESSION: INCOMPLETE: NEEDS ADDITIONAL IMAGING EVALUATION The irregular asymmetry in the right breast is indeterminate. ?An ultrasound is recommended. ULTRASOUND OF RIGHT BREAST: 08/12/2018 RESULT: Comparison is made to exams dated: ?07/28/2018 mammogram - [facility], 07/25/2017 mammogram - [facility], and 07/17/2016 mammogram - [facility]. Ultrasound of the right breast was performed. ?Harley scale images of the real-time examination were reviewed. There is an irregular area in the right breast upper outer aspect middle depth. ?This irregular area displays posterior acoustic shadowing. IMPRESSION: SUSPICIOUS OF MALIGNANCY The irregular area in the right breast is at a moderate suspicion for malignancy. ?An ultrasound guided biopsy is recommended. SUMMARY: Note: I cannot be entirely certain that the asymmetry on mammogram and the area of shadowing on ultrasound correspond to the same area. I would recommend ultrasound-guided biopsy. Clip placement after biopsy could be correlated with the mammographic findings. ?Another option would be to needle localize the finding on ultrasound. Followed by mammogram images to see if these 2 areas correspond prior to surgery. Sulaiman syed/robert:08/12/2018 16:54:07 Manager Clinical Pharmacy(s): [facility] ?RT Elbert(R)(M), [facility]; Aydee Merrill [facility] letter sent: Abnormal ? OVERALL STUDY BIRADS: 4c Suspicious abnormality - moderate concern but not classic for malignancy Benefit Authorizer: Robert Transcribe Date/Time: Aug 12 2018 ?3:03P Dictated by : SULAIMAN MOSHER, DO This examination was interpreted and the report reviewed and electronically signed by: SULAIMAN MOSHER, DO on Aug 12 2018 ?4:54PM ?EST Results-Findings * * *Final Report* * * DATE OF EXAM: Aug 12 2018 ?4:10PM ? WRU ? [id number] ?- ?[facility] [employer] BREAST LTD RT ?/ PROCEDURE REASON: Abnormal mammogram ?? ? * * * * Physician Interpretation * * * * ?#[id number] - [facility] DIAGNOSTIC RT #[id number] - [facility] [employer] BREAST LTD RT UNILATERAL RIGHT DIGITAL DIAGNOSTIC MAMMOGRAM WITH CAD: 08/12/2018 HISTORY: Abnormal Mammogram/call back right /priors available for comparison Abnormal Mammogram. RESULT: TECHNIQUE: The study was acquired using full field digital technology and interpreted from soft copy. Current study was also evaluated with a Computer Aided Detection (CAD). Comparison is made to exams dated: ?07/28/2018 mammogram - [facility], 07/25/2017 mammogram - [facility], and 07/17/2016 mammogram - [facility]. ?There are scattered fibroglandular elements in right breast. There is an irregular asymmetry in the right breast upper outer aspect middle depth. No other significant masses or calcifications are seen in the breast. The patient denies a history of breast masses. She does not perform a self breast exam routinely. She notes no skin changes. She denies nipple discharge. She notes no axillary masses. She notes no family history of breast problems. She notes no significant breast trauma or breast difficulties in the past. The patient has had 2 pregnancies. Her last mammogram was July 25, 2017. Her last menstrual period was around age 50. Her first menstrual period was at age age 14. I performed a ultrasound guided core biopsy of the right breast biopsy for her abnormal mammogram on August 26, 2018. The pathology returned as: MICROSCOPIC DIAGNOSIS Right breast, ultrasound-guided core biopsy: Invasive ductal carcinoma, nuclear grade 2 (1 cm in greatest length). See comment. RESULTS: ANTIBODY / CLONE RESULT E-Cad (ECH-6) positive CK8 (14cbsgC72) positive CK5-6 (D5 AND 1684) negative Ki-67 (30-9) positive, low P53 (DO-7) negative P40 (BC28) negative Calponin-1 (VC205Z) negative MORPHOMETRIC ANALYSIS ER (clone 6F11) >95%, strong NC (clone 16/1E2) >95%, moderate Her-2Neu (clone CB11) 0 The patient notes slight bruising since the procedure. VITALS: There were no vitals taken for this visit. On examination, the Right breast biopsy site is clean, dry, and intact. There is slight bruising of the site. Assessment IMPRESSION: status post ultrasound guided core biopsy of the right breast biopsy for Right breast invasive ductal carcinoma. PLAN: If Andre notes any problems, she should contact me immediately. We extensively discussed her diagnosis of ductal carcinoma. She was able to ask questions and those questions were answered. She was given a handout extensively detailing breast cancer treatment. Discussion with the patient concerning her diagnosis lasted 60 minutes. I plan to obtain a breast MRI to aid in planning for the most appropriate definitive surgical procedure. The patient is considering mastectomy with reconstruction. I will refer her to [facility] breast center for evaluation and discussion concerning those options. I also recommended she discontinue use of her vaginal estrogen cream. Diagnoses: (C50.411, Z17.0) Malignant neoplasm of upper-outer quadrant of right breast in female, estrogen receptor positive (HCC) (primary encounter diagnosis) Return to Clinic: The patient is instructed to follow- up with me Saturday to have additional discussions concerning her diagnosis. Hortencia Yan MD Referring Provider: INESSA LOVE [[id number]] Allergies As of Date: 08/29/2018 Noted Allergy Reaction DOXYCYCLINE HYCLATE 04/01/2018 5 - Intolerance Comments: Reflux CEPHALOSPORINS 01/19/2008 2 - Rash CODEINE 01/10/2007 8 - GI Upset DUST 01/13/2007 RAGWEED 01/13/2007 Howie [Other] 01/13/2007 Date Reviewed: 08/29/2018 Reviewed by: Hortencia Yan - Fully Assessed Reason for Visit: Follow Up [171] Primary Visit Diagnosis:Malignant neoplasm of upper-outer quadrant of right breast in female, estrogen receptor positive (HCC) [C50.411, Z17.0] Order(s):CREATININE BLD [SQCRET] Order #: [id number] FUTURE MRI BREAST WO/W IVCON BILAT [[id number]] Order #: [id number] FUTURE iv contrast (will be provided with radiology test)MRI Breast SHIRA Inject, intravenously, once for 1 dose. No IV access, insert saline lock prior to the beginning of sedation, infusion, injection of imaging exam. Discontinue saline lock post exam. If Pt has a central line or IVAD, may access for administration according to line specific nursing protocol. Once exam is complete flush line and de-access according to line specific nursing protocol in the MR contrast administration guidelines linkDisp: 1 EachRfl: 0 Prescriptions as of 08/29/2018 Sig: IV CONTRAST (RADIOLOGY PROCED* MRI Breast SHIRA Inject, intrav* FLAXSEED 1,000 MG CAPSULE Take by mouth twice daily. VITAMINS A,C,D-EFPD-TMRFRW 7* Take 1 tablet by mouth twice * ESTRADIOL 0.01% (0.1 MG/GRAM)* Use small amount at vaginal o* FOLIC ACID ORAL Take by mouth once daily. ALBUTEROL SULFATE HFA 90 MCG/* Inhale 2 Puffs as instructed * FLUTICASONE 50 MCG/ACTUATION * Use 1 [place]wood in each nostril o* ETODOLAC 400 MG TABLET Take 1 tablet by mouth twice * CHOLECALCIFEROL (VITAMIN D3) * Take 1 capsule by mouth once * * GLUCOSAMINE 750 MG-CHONDROITN* Take 1 tablet by mouth twice * * ARTIFICIAL TEARS (DEXTRAN 70-* as necessary * FISH OIL 500 MG CAPSULE Take two(2) capsule daily. * MULTIVITAMIN TABLET Take one(1) tablet daily. Problem List As Of Date 08/29/2018 Noted Resolved Solar Lentigines [L81.4] INVALID FOR*06/22/2014 Seborrheic Keratosis [L82.1] INVALID FOR*06/22/2014 Nobles Angiomas [D18.01] INVALID FOR*06/22/2014 Cutaneous skin tags [L91.8] INVALID FOR*06/22/2014 Bilateral pseudophakia [Z96.1] INVALID FOR*09/20/2017 Pain in joint, lower leg [M25.569] INVALID FOR*09/20/2017 PCO (posterior capsular opacification), left [H*INVALID FOR*09/20/2017 After-cataract, obscuring vision [H26.499] INVALID FOR*09/20/2017 Postmenopausal atrophic vaginitis [N95.2] INVALID FOR* Primary osteoarthritis of left knee [M17.12] INVALID FOR* Mild intermittent asthma without complication [*INVALID FOR* Anal or rectal pain [K62.89] INVALID FOR*09/20/2017 Osteopenia [M85.80] INVALID FOR* Prescriptions ordered this encounter Disp Refills Start End IV CONTRAST (RADIOLOGY PROCEDURE) 1 Ea* 0 08/29/2018 08/30/2018 Class: In Office Sig: MRI Breast SHIRA Inject, intravenously, once for 1 dose. No IV access, insert saline lock prior to the beginning of sedation, infusion, injection of imaging exam. Discontinue saline lock post exam. If Pt has a central line or IVAD, may access for administration according to line specific nursing protocol. Once exam is complete flush line and de-access according to line specific nursing protocol in the MR contrast administration guidelines link Follow-up and Disposition History Recorded Encounter Status:Closed by HORTENCIA YAN MD on 08/29/18 PROGRESS Observed: 08/29/2018 Status: COMPLETED Source: [facility] 12:21 PM [facility] [place] REPOSITORY HNO ID: [id number] Author: Darinel Akers Service: (none) Author Type: Physician Type: Progress Notes Filed: 08/29/2018 12:24 PM Note Text: Andre Luther is a 68 year old female who presents for problem visit for vaginal dryness. HPI: 68-year-old female who is on vaginal estrogen who is doing well with it. She still complains of a symptomatic rectocele. She does not have any problems expelling bowel movements. She denies any vaginal bleeding. She is sexually active and her atrophic vaginitis is relieved with the vaginal estrogen she's been using an tjyq-smk-slkcpkp lubricants. She has no other new complaints today. PAST MEDICAL HISTORY Diagnosis Date - Asthma - Macular cyst, hole, or pseudohole of retina Both eyes - Osteopenia after menopause - Shingles PAST SURGICAL HISTORY Procedure Laterality Date - BREAST BIOPSY INCISIONAL RIGHT Right 07/2018 - COLONOSCOPY 07/2007 - DISCISSION,2ND CATARACT,LASER 06/26/12 Yag Capsulotomy OS - nevus 1980 face. - VITRECTOMY FOR MACULAR HOLE 06/06/2011 L eye. 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 Has her house to take care of Exercise. Stationary bike 5 miles few times a week/ Can't swim, walking bothers her knees. Current Outpatient Prescriptions: flaxseed 1,000 mg cap Take by mouth twice daily. vit A,C,I-Cfth-Ogkbqj (PRESERVISION AREDS) 7,160-113-100 uziu-gh-sqhz tab Take 1 tablet by mouth twice daily. estradiol (ESTRACE) 0.01 % (0.1 mg/gram) vaginal cream Use small amount at vaginal opening for 4-6 weeks then 1-2 times a week FOLIC ACID ORAL Take by mouth once daily. albuterol HFA (VENTOLIN HFA) 90 mcg/actuation inhaler Inhale 2 Puffs as instructed every 4 hours as needed. fluticasone (FLONASE) 50 mcg/actuation nasal spray Use 1 Highwood in each nostril once daily. FOR ALLERGIC NASAL SX. etodolac (LODINE) 400 mg tablet Take 1 tablet by mouth twice daily. Cholecalciferol, Vitamin D3, 2,000 unit cap Take 1 capsule by mouth once daily. Gbij-Hgsw-VBR#6-A-Zyix-Trevon-Bor (OSTEO BI-FLEX) 750-625-30 mg Tab Take 1 tablet by mouth twice daily. dextran 70/hypromellose(ARTIFICIAL TEARS EYE DROPS) as necessary omega-3 fatty acids(FISH OIL 500 MG CAP) Take two(2) capsule daily. MULTIVITAMIN TAB Take one(1) tablet daily. No current facility-administered medications for this visit. Allergies As of Date: 08/29/2018 Allergen Noted Reaction DOXYCYCLINE HYCLATE 04/01/2018 Intolerance CEPHALOSPORINS 01/19/2008 Rash CODEINE 01/10/2007 GI Upset DUST 01/13/2007 RAGWEED 01/13/2007 HOWIE [OTHER] 01/13/2007 Fully Assessed 08/29/2018 REVIEW OF SYSTEMS Abdomen: No bloating, early satiety, indigestion, or increased flatulence. No abdominal pain, nausea, vomiting, diarrhea, or constipation. Bladder: No dysuria, gross hematuria, urinary frequency, urinary urgency, or incontinence. Allergies and current medication updated:Yes EXAM: BP 134/84 Ht 5' .63 (1.54m) Wt 137 lb (62.1kg) BMI 26.20 kg/(m2). GENERAL: pleasant, female in no apparent distress HEENT: Normocephalic, atraumatic, mucus membranes moist and no lesions NECK: Supple, full range of motion, no adenopathy and thyroid normal CHEST: Normal inspiratory effort ABDOMEN: soft, non-tender and no masses PELVIC: external genitalia normal, normal Bartholin's glands, urethra, Le Center's glands, no vulvar lesions, no cervical lesions, physiologic discharge present, normal appearing perineal body and perianal region, cystocele 1st degree, rectocele 2nd degree, cervical prolapse 1st degree BIMANUAL: uterus normal size, shape and consistency, no adnexal masses and non-tender NEURO: alert and oriented x3,exam grossly non-focal EXTREMITIES: normal ASSESSMENT AND PLAN: Encounter Diagnosis ICD-10-CM 1. Encounter for gynecological examination (general) (routine) without abnormal findings Z01.419 2. Encounter for screening mammogram for breast cancer Z12.31 Atrophic vaginitis and rectocele. Continue vaginal estrogen for atrophic vaginitis. Patient has no new complaints and is tolerating this well. Rectocele is stable. Discussed with her option of surgery versus continued expectant management. Patient will contact the office if it becomes more bothersome. It is annoying to her but it does go back inside most the time. She is comfortable with this plan. Darinel Akers MD PROGRESS Observed: 08/29/2018 Status: COMPLETED Source: [facility] 10:53 AM [facility] [place] REPOSITORY HNO ID: [id number] Author: Amalia Monet Ma Service: (none) Author Type: (none) Type: Progress Notes Filed: 08/29/2018 12:24 PM Note Text: Would you like a grocery manager present for your visit today? No Amalia Monet Ma CNOV Observed: 08/29/2018 Status: COMPLETED Source: [place] 10:50 AM [facility] REPOSITORY Office Visit (WOOB) ANDRE LUTHER ([id number]) 1950 F Date Time Provider Department 08/29/18 10:50 AM DARINEL AKERS [place] During your visit today, we recorded the following information about you: Blood pressure Weight Height 134/84 62.1 kg 1.54 m Darinel Akers MD 08/29/2018 12:24 PM Signed Amalia Monet Ma 08/29/2018 12:24 PM Signed Would you like a grocery manager present for your visit today? No Amalia Akers MD 08/29/2018 12:24 PM Signed Andre Rogerslon is a 68 year old female who presents for problem visit for vaginal dryness. HPI: 68-year-old female who is on vaginal estrogen who is doing well with it. She still complains of a symptomatic rectocele. She does not have any problems expelling bowel movements. She denies any vaginal bleeding. She is sexually active and her atrophic vaginitis is relieved with the vaginal estrogen she's been using an jlgp-eby-exejdiz lubricants. She has no other new complaints today. PAST MEDICAL HISTORY Diagnosis Date - Asthma - Macular cyst, hole, or pseudohole of retina Both eyes - Osteopenia after menopause - Shingles PAST SURGICAL HISTORY Procedure Laterality Date - BREAST BIOPSY INCISIONAL RIGHT Right 07/2018 - COLONOSCOPY 07/2007 - DISCISSION,2ND CATARACT,LASER 06/26/12 Yag Capsulotomy OS - nevus 1980 face. - VITRECTOMY FOR MACULAR HOLE 06/06/2011 L eye. 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 Has her house to take care of Exercise. Stationary bike 5 miles few times a week/ Can't swim, walking bothers her knees. Current Outpatient Prescriptions: flaxseed 1,000 mg cap Take by mouth twice daily. vit A,C,K-Qrgp-Ifynpq (PRESERVISION AREDS) 7,160-113-100 ggpy-ma-yqvh tab Take 1 tablet by mouth twice daily. estradiol (ESTRACE) 0.01 % (0.1 mg/gram) vaginal cream Use small amount at vaginal opening for 4-6 weeks then 1-2 times a week FOLIC ACID ORAL Take by mouth once daily. albuterol HFA (VENTOLIN HFA) 90 mcg/actuation inhaler Inhale 2 Puffs as instructed every 4 hours as needed. fluticasone (FLONASE) 50 mcg/actuation nasal spray Use 1 [place] in each nostril once daily. FOR ALLERGIC NASAL SX. etodolac (LODINE) 400 mg tablet Take 1 tablet by mouth twice daily. Cholecalciferol, Vitamin D3, 2,000 unit cap Take 1 capsule by mouth once daily. Cayh-Voox-EGP#8-U-Xebg-Trevon-Bor (OSTEO BI-FLEX) 750-625-30 mg Tab Take 1 tablet by mouth twice daily. dextran 70/hypromellose(ARTIFICIAL TEARS EYE DROPS) as necessary omega-3 fatty acids(FISH OIL 500 MG CAP) Take two(2) capsule daily. MULTIVITAMIN TAB Take one(1) tablet daily. No current facility-administered medications for this visit. Allergies As of Date: 08/29/2018 Allergen Noted Reaction DOXYCYCLINE HYCLATE 04/01/2018 Intolerance CEPHALOSPORINS 01/19/2008 Rash CODEINE 01/10/2007 GI Upset DUST 01/13/2007 RAGWEED 01/13/2007 HOWIE [OTHER] 01/13/2007 Fully Assessed 08/29/2018 REVIEW OF SYSTEMS Abdomen: No bloating, early satiety, indigestion, or increased flatulence. No abdominal pain, nausea, vomiting, diarrhea, or constipation. Bladder: No dysuria, gross hematuria, urinary frequency, urinary urgency, or incontinence. Allergies and current medication updated:Yes EXAM: BP 134/84 Ht 5' .63 (1.54m) Wt 137 lb (62.1kg) BMI 26.20 kg/(m2). GENERAL: pleasant, female in no apparent distress HEENT: Normocephalic, atraumatic, mucus membranes moist and no lesions NECK: Supple, full range of motion, no adenopathy and thyroid normal CHEST: Normal inspiratory effort ABDOMEN: soft, non-tender and no masses PELVIC: external genitalia normal, normal Bartholin's glands, urethra, Le [place]'s glands, no vulvar lesions, no cervical lesions, physiologic discharge present, normal appearing perineal body and perianal region, cystocele 1st degree, rectocele 2nd degree, cervical prolapse 1st degree BIMANUAL: uterus normal size, shape and consistency, no adnexal masses and non-tender NEURO: alert and oriented x3,exam grossly non-focal EXTREMITIES: normal ASSESSMENT AND PLAN: Encounter Diagnosis ICD-10-CM 1. Encounter for gynecological examination (general) (routine) without abnormal findings Z01.419 2. Encounter for screening mammogram for breast cancer Z12.31 Atrophic vaginitis and rectocele. Continue vaginal estrogen for atrophic vaginitis. Patient has no new complaints and is tolerating this well. Rectocele is stable. Discussed with her option of surgery versus continued expectant management. Patient will contact the office if it becomes more bothersome. It is annoying to her but it does go back inside most the time. She is comfortable with this plan. Darinel Akers MD Referring Provider: SELF [200] Allergies As of Date: 08/29/2018 Noted Allergy Reaction DOXYCYCLINE HYCLATE 04/01/2018 5 - Intolerance Comments: Reflux CEPHALOSPORINS 01/19/2008 2 - Rash CODEINE 01/10/2007 8 - GI Upset DUST 01/13/2007 RAGWEED 01/13/2007 Howie [Other] 01/13/2007 Date Reviewed: 08/29/2018 Reviewed by: Darinel Akers - Fully Assessed Reason for Visit: Symptomatic Menopause [1448] Primary Visit Diagnosis:Postmenopausal atrophic vaginitis [N95.2] Other Visit Diagnosis:Rectocele [N81.6] Order(s):[facility] SCREENING [[id number]] Order #: [id number] FUTURE Prescriptions as of 08/29/2018 Sig: FLAXSEED 1,000 MG CAPSULE Take by mouth twice daily. VITAMINS A,C,N-USDK-ZAPLRN 7* Take 1 tablet by mouth twice * ESTRADIOL 0.01% (0.1 MG/GRAM)* Use small amount at vaginal o* FOLIC ACID ORAL Take by mouth once daily. ALBUTEROL SULFATE HFA 90 MCG/* Inhale 2 Puffs as instructed * FLUTICASONE 50 MCG/ACTUATION * Use 1 [place] in each nostril o* ETODOLAC 400 MG TABLET Take 1 tablet by mouth twice * CHOLECALCIFEROL (VITAMIN D3) * Take 1 capsule by mouth once * * GLUCOSAMINE 750 MG-CHONDROITN* Take 1 tablet by mouth twice * * ARTIFICIAL TEARS (DEXTRAN 70-* as necessary * FISH OIL 500 MG CAPSULE Take two(2) capsule daily. * MULTIVITAMIN TABLET Take one(1) tablet daily. Problem List As Of Date 08/29/2018 Noted Resolved Solar Lentigines [L81.4] INVALID FOR*06/22/2014 Seborrheic Keratosis [L82.1] INVALID FOR*06/22/2014 Nobles Angiomas [D18.01] INVALID FOR*06/22/2014 Cutaneous skin tags [L91.8] INVALID FOR*06/22/2014 Bilateral pseudophakia [Z96.1] INVALID FOR*09/20/2017 Pain in joint, lower leg [M25.569] INVALID FOR*09/20/2017 PCO (posterior capsular opacification), left [H*INVALID FOR*09/20/2017 After-cataract, obscuring vision [H26.499] INVALID FOR*09/20/2017 Postmenopausal atrophic vaginitis [N95.2] INVALID FOR* Primary osteoarthritis of left knee [M17.12] INVALID FOR* Mild intermittent asthma without complication [*INVALID FOR* Anal or rectal pain [K62.89] INVALID FOR*09/20/2017 Osteopenia [M85.80] INVALID FOR* Disposition: Return in 1 year (on 08/29/2019) for Annual Exam. Follow-up and Disposition History Recorded Encounter Status:Closed by DARINEL AKERS MD on 08/29/18 PROGRESS Observed: 08/29/2018 Status: COMPLETED Source: [facility] 10:43 AM [facility] REPOSITORY HNO ID: [id number] Author: Darinel Akers Service: (none) Author Type: Physician Type: Progress Notes Filed: 08/29/2018 12:24 PM Note Text: PROGRESS Observed: 08/26/2018 Status: COMPLETED Source: [place] 6:34 PM [facility] REPOSITORY HNO ID: [id number] Author: Hortencia Yan Service: (none) Author Type: Physician Type: Progress Notes Filed: 08/26/2018 6:40 PM Note Text: HISTORY AND PHYSICAL - BREAST COMPLAINT Andre Luther 1950 REFERRING PHYSICIAN: Darinel Akers MD CHIEF COMPLAINT: Abnormal right breast imaging HPI: The patient is a 68 year old female with a complaint of an abnormal mammogram. The patient had a mammogram with ultrasound on July 28 with follow-up imaging on August 12 which demonstrated: IMPRESSION: INCOMPLETE: NEEDS ADDITIONAL IMAGING EVALUATION The irregular asymmetry in the right breast is indeterminate. ?An ultrasound is recommended. ULTRASOUND OF RIGHT BREAST: 08/12/2018 RESULT: Comparison is made to exams dated: ?07/28/2018 mammogram - [facility], 07/25/2017 mammogram - [facility], and 07/17/2016 mammogram - [facility]. Ultrasound of the right breast was performed. ?Harley scale images of the real-time examination were reviewed. There is an irregular area in the right breast upper outer aspect middle depth. ?This irregular area displays posterior acoustic shadowing. IMPRESSION: SUSPICIOUS OF MALIGNANCY The irregular area in the right breast is at a moderate suspicion for malignancy. ?An ultrasound guided biopsy is recommended. SUMMARY: Note: I cannot be entirely certain that the asymmetry on mammogram and the area of shadowing on ultrasound correspond to the same area. I would recommend ultrasound-guided biopsy. Clip placement after biopsy could be correlated with the mammographic findings. ?Another option would be to needle localize the finding on ultrasound. Followed by mammogram images to see if these 2 areas correspond prior to surgery. Sulaiman syed/robert:08/12/2018 16:54:07 Manager Clinical Pharmacy(s): RT Kesha(R)(M), [facility]; Aydee Merrill, [facility] letter sent: Abnormal ? OVERALL STUDY BIRADS: 4c Suspicious abnormality - moderate concern but not classic for malignancy Benefit Authorizer: Robert Transcribe Date/Time: Aug 12 2018 ?3:03P Dictated by : SULAIMAN MOSHER, DO This examination was interpreted and the report reviewed and electronically signed by: SULAIMAN MOSHER, DO on Aug 12 2018 ?4:54PM ?EST Results-Findings * * *Final Report* * * DATE OF EXAM: Aug 12 2018 ?4:10PM ? WRU ? 0594 ?- ?[facility] US BREAST LTD RT ?/ PROCEDURE REASON: Abnormal mammogram ?? ? * * * * Physician Interpretation * * * * ?#[id number] - [facility] DIAGNOSTIC RT #[id number] - [facility] US BREAST LTD RT UNILATERAL RIGHT DIGITAL DIAGNOSTIC MAMMOGRAM WITH CAD: 08/12/2018 HISTORY: Abnormal Mammogram/call back right /priors available for comparison Abnormal Mammogram. RESULT: TECHNIQUE: The study was acquired using full field digital technology and interpreted from soft copy. Current study was also evaluated with a Computer Aided Detection (CAD). Comparison is made to exams dated: ?07/28/2018 mammogram - [facility], 07/25/2017 mammogram - [facility], and 07/17/2016 mammogram - [facility]. ?There are scattered fibroglandular elements in right breast. There is an irregular asymmetry in the right breast upper outer aspect middle depth. No other significant masses or calcifications are seen in the breast. The patient denies a history of breast masses. She does not perform a self breast exam routinely. She notes no skin changes. She denies nipple discharge. She notes no axillary masses. She notes no family history of breast problems. She notes no significant breast trauma or breast difficulties in the past. The patient has had 2 pregnancies. Her last mammogram was July 25, 2017. Her last menstrual period was around age 50. Her first menstrual period was at age age 14. The patient is being seen by me today at the request of Dr. Akers for my opinion and advice regarding abnormal right breast imaging. PAST MEDICAL HISTORY Diagnosis Date - Asthma - Macular cyst, hole, or pseudohole of retina Both eyes - Osteopenia after menopause - Shingles PAST SURGICAL HISTORY Procedure Laterality Date - COLONOSCOPY 07/2007 - DISCISSION,2ND CATARACT,LASER 06/26/12 Yag Capsulotomy OS - nevus 1980 face. - VITRECTOMY FOR MACULAR HOLE 06/06/2011 L eye. - VITRECTOMY,MECHANICAL 02-20-12 Pars [place] Vitrectomy ,MP, PCIOL OD Current Outpatient Prescriptions: flaxseed 1,000 mg cap Take by mouth twice daily. Disp: Rfl: vit A,C,L-Mmbf-Tkrzlv (PRESERVISION AREDS) 7,160-113-100 vkmp-bk-qbkp tab Take 1 tablet by mouth twice daily. Disp: Rfl: estradiol (ESTRACE) 0.01 % (0.1 mg/gram) vaginal cream Use small amount at vaginal opening for 4-6 weeks then 1-2 times a week Disp: 1 Tube Rfl: 3 FOLIC ACID ORAL Take by mouth once daily. Disp: Rfl: albuterol HFA (VENTOLIN HFA) 90 mcg/actuation inhaler Inhale 2 Puffs as instructed every 4 hours as needed. Disp: 1 Inhaler Rfl: 5 fluticasone (FLONASE) 50 mcg/actuation nasal spray Use 1 [place] in each nostril once daily. FOR ALLERGIC NASAL SX. Disp: 1 Bottle Rfl: 5 etodolac (LODINE) 400 mg tablet Take 1 tablet by mouth twice daily. Disp: 180 tablet Rfl: 3 Cholecalciferol, Vitamin D3, 2,000 unit cap Take 1 capsule by mouth once daily. Disp: 90 capsule Rfl: 3 Vpnf-Mpfa-HBW#4-N-Uksm-Trevon-Bor (OSTEO BI-FLEX) 750-625-30 mg Tab Take 1 tablet by mouth twice daily. Disp: 60 tablet Rfl: 3 dextran 70/hypromellose(ARTIFICIAL TEARS EYE DROPS) as necessary Disp: Rfl: 0 omega-3 fatty acids(FISH OIL 500 MG CAP) Take two(2) capsule daily. Disp: Rfl: 0 MULTIVITAMIN TAB Take one(1) tablet daily. Disp: Rfl: 0 No current facility-administered medications for this visit. 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 Has her house to take care of Exercise. Stationary bike 5 miles few times a week/ Can't swim, walking bothers her knees. FAMILY HISTORY: FAMILY HISTORY Problem Relation Age of Onset - Heart Father - Lipids Father High Cholesterol - other (osteopenia [Other]) Mother Osteopenia - Cataract Mother - other (Macular Degeneration [Other]) Maternal Grandfather REVIEW OF SYMPTOMS: The review of systems data was entered by the nurse and reviewed by pr Nursing Notes: Milagros De La Vega LPN 08/26/2018 1:11 PM Signed REVIEW OF SYSTEMS: General: The patient denies fatigue, denies weight loss, denies weight gain, denies feeling hot, and denies feelings of cold. Eyes: The patient denies glaucoma, NOTES eye injury/surgery, wears glasses or contacts. Ear/Nose/Throat: The patient NOTES allergies, NOTES hayfever, denies ear infections, and denies bloody noses. Cardiovascular: The patient denies chest pain, denies heart disease, denies high blood pressure,denies cardiac stent, denies prior heart attack, denies irregular heart beat, denies high cholesterol, denies poor circulation, denies heart failure, other cardiac issues, denies claudication, denies cold feet, denies peripheral arterial stent. Respiratory: The patient denies tuberculosis, denies pneumonia, NOTES frequent cough, denies pulmonary embolism, NOTES shortness of breath, and denies coughing up blood. Gastrointestinal: The patient denies difficulty swallowing, NOTES acid reflux, denies ulcers, denies vomiting, denies jaundice/hepatitis, denies gallbladder problems, denies black or tarry stools, NOTES hemorrhoids, denies bleeding from rectum, denies diverticulitis, denies constipation, denies diarrhea, denies loss of stool control, and denies hernias. Kidney/Bladder: The patient denies kidney stones, denies urine infections, and denies bloody urine. Skin: The patient denies a history of skin cancer, denies bleeding/changing moles, and denies a history of skin rash. Neurologic: The patient denies a history of epilepsy/convulsions, denies headaches, denies head/spinal injuries, and denies stroke/TIA. Psychiatric: The patient denies psychiatric medications, denies depression, and denies voices, denies substance abuse. Endocrine: The patient denies thyroid disorders, denies diabetes, and denies hormonal problems. Hematologic: The patient denies a history of bruising, denies bleeding, and denies anemia, denies blood clots. Infections: The patient NOTES a history of measles and mumps, denies rheumatic fever, and denies sexually transmitted diseases. Musculoskeletal: The patient denies back pain/injury, denies back problems, NOTES sciatica, denies knee/foot trouble, NOTES arthritis, or denies gout. When was patient's last Mammogram screening? 07/2018 Last Colonoscopy: 2017 Milagros De La Vega LPN 08/26/2018 2:47 PM Signed INFORMED CONSENT Andre Ibarran Medical Record: [id number] Procedure:us guided right breast biopsy The risks, benefits and anticipated outcomes of the procedure, the risks and benefits of the alternatives to the procedure and the roles and tasks of the personnel to be involved were discussed with the patient and the patient consents to the procedure and agrees to proceed. I verify that I personally obtained Andre Annemarie Luther's consent. Milagros De La Vega LPN August 26, 2018 2:42 PM Dept of GENERAL SURGERY UNIVERSAL PROTOCOL / SAFETY CHECKLIST Procedure to be performed: us guided right breast biopsy Sign in Communication: Completed Time Out: Team Confirms the Correct Patient, Correct Procedure, Correct Site and Site Marking, Correct Position (if applicable), Prep and Dry Time (if applicable). Time: 243 pm Affirmation of Time Out: YES Sign Out Discussion: Completed Milagros De La Vega LPN PHYSICAL EXAMINATION: General: The patient is 68 year old female, well nourished, well hydrated in no acute distress. The patient is oriented to time, place, and person. VITALS: Blood pressure 146/76, pulse 76, weight 62.6 kg (138 lb). Body mass index is 25.65 kg/m?. HEENT: Normal cephalic, ataumatic, pupils are equally round, sclera are anicteric, mucous membranes are moist, oropharynx is clear. Neck has no masses, asymmetry or lymphadenopathy. Thyroid is unremarkable. Respiratory: Clear to auscultation and percussion. Normal respiratory excursion and pattern. Cardiac: Examination is regular rate and rhythm. Abdominal exam: exam deferred Rectal exam: exam deferred Extremities: no clubbing, cyanosis or edema. No adenopathy. Breast: Visual inspection reveals no retractions, nipple inversion, or skin changes. Palpation of the right breast reveals no dominant or suspicious masses, but multiple benign-feeling nodules. Palpation of the left breast reveals no dominant or suspicious masses, but multiple benign-feeling nodules. Axillary exam demonstrates no suspicious masses in either the left or right axilla. There is no nipple discharge expressed from either the left or right breast. The area of concern was identified with intraoffice ultrasound - there were no obviously palpable abnormalities at that site LABORATORY VALUES: As Noted RADIOLOGIC STUDIES: As Noted PROCEDURE: Ultrasound Guided Core Breast Biopsy The risks, benefits and anticipated outcomes of the procedure, the risks and benefits of the alternatives to the procedure, and the roles and tasks of the personnel to be involved, were discussed with the patient, and the patient consents to the procedure and agrees to proceed. After explaining the procedure and consent was obtained,Andre was positioned. The abnormality in the 9 to 10:00 position of the right breast was identified by ultrasound. Lidocaine was injected in to the skin and a small stab incision was made. The bard core biopsy needle was inserted into the stab incision and advanced. Multiple core were obtained with ultrasound demonstrating targeting into the lesion. A marker clip was then placed via ultrasound guidance. Steristrips were applied to the incision. A bandage was applied to the needle site. Andre tolerated the procedure well. Assessment IMPRESSION: Status post ultrasound guided core breast biopsy right breast PLAN: The patient is to return for results of her ultrasound guided breast biopsy. If the patient notes bleeding from the biopsy site, she is to place pressure on the site. Discomfort from brusing can be managed with an ice pack or non steroidal analegics. Diagnoses: (R92.8) Abnormal finding on breast imaging (primary encounter diagnosis) My findings have been communicated to Dr. Akers via shared medical record. This note will be forwarded to Dr. Inessa Love MD. Return to Clinic: The patient is instructed to follow-up with me in 3 days. Hortencia Yan MD CNOV Observed: 08/26/2018 Status: COMPLETED Source: [facility] 1:20 PM [facility] REPOSITORY Office Visit (GENSWS) ANDRE LUTHER ([id number]) 1950 F Date Time Provider Department 08/26/18 1:20 PM HORTENCIA YAN GENSWS During your visit today, we recorded the following information about you: Pulse Blood pressure Weight 76/minute 146/76 62.6 kg Milagros De La Vega GUERA 08/26/2018 1:11 PM Signed REVIEW OF SYSTEMS: General: The patient denies fatigue, denies weight loss, denies weight gain, denies feeling hot, and denies feelings of cold. Eyes: The patient denies glaucoma, NOTES eye injury/surgery, wears glasses or contacts. Ear/Nose/Throat: The patient NOTES allergies, NOTES hayfever, denies ear infections, and denies bloody noses. Cardiovascular: The patient denies chest pain, denies heart disease, denies high blood pressure,denies cardiac stent, denies prior heart attack, denies irregular heart beat, denies high cholesterol, denies poor circulation, denies heart failure, other cardiac issues, denies claudication, denies cold feet, denies peripheral arterial stent. Respiratory: The patient denies tuberculosis, denies pneumonia, NOTES frequent cough, denies pulmonary embolism, NOTES shortness of breath, and denies coughing up blood. Gastrointestinal: The patient denies difficulty swallowing, NOTES acid reflux, denies ulcers, denies vomiting, denies jaundice/hepatitis, denies gallbladder problems, denies black or tarry stools, NOTES hemorrhoids, denies bleeding from rectum, denies diverticulitis, denies constipation, denies diarrhea, denies loss of stool control, and denies hernias. Kidney/Bladder: The patient denies kidney stones, denies urine infections, and denies bloody urine. Skin: The patient denies a history of skin cancer, denies bleeding/changing moles, and denies a history of skin rash. Neurologic: The patient denies a history of epilepsy/convulsions, denies headaches, denies head/spinal injuries, and denies stroke/TIA. Psychiatric: The patient denies psychiatric medications, denies depression, and denies voices, denies substance abuse. Endocrine: The patient denies thyroid disorders, denies diabetes, and denies hormonal problems. Hematologic: The patient denies a history of bruising, denies bleeding, and denies anemia, denies blood clots. Infections: The patient NOTES a history of measles and mumps, denies rheumatic fever, and denies sexually transmitted diseases. Musculoskeletal: The patient denies back pain/injury, denies back problems, NOTES sciatica, denies knee/foot trouble, NOTES arthritis, or denies gout. When was patient's last Mammogram screening? 07/2018 Last Colonoscopy: 2016 Milagros De La Vega LPN 08/26/2018 2:47 PM Signed INFORMED CONSENT Andre Annemarie Luther Medical Record: [id number] Procedure:us guided right breast biopsy The risks, benefits and anticipated outcomes of the procedure, the risks and benefits of the alternatives to the procedure and the roles and tasks of the personnel to be involved were discussed with the patient and the patient consents to the procedure and agrees to proceed. I verify that I personally obtained Andre Luther's consent. Milagros De La Vega LPN August 26, 2018 2:42 PM Dept of GENERAL SURGERY UNIVERSAL PROTOCOL / SAFETY CHECKLIST Procedure to be performed: us guided right breast biopsy Sign in Communication: Completed Time Out: Team Confirms the Correct Patient, Correct Procedure, Correct Site and Site Marking, Correct Position (if applicable), Prep and Dry Time (if applicable). Time: 243 pm Affirmation of Time Out: YES Sign Out Discussion: Completed Milagros De La Vega LPN 08/26/2018 2:46 PM Signed The following instructions are important for you related to your office visit today with the [facility] General Surgeons. Instructions After OFFICE BASED BREAST BIOPSY Please do not take aspirin or other blood thinners for the next few days. After the procedure, Steri-Strips and a dressing will be placed on your small incision. The dressing may be removed in two to three days after the procedure. The Steri-Strips should be left in place until they fall off. If you have bleeding from the biopsy site, hold pressure with a clean gauze. If the bleeding continues, contact our office immediately. I recommend taking Advil or Tylenol for the discomfort. You should wear a comfortable but somewhat tight fitting bra. If you have significant bruising, an ice pack may improve your discomfort. Please make an appointment to return to our office in 3 days. If you note any additional difficulties, questions, or concerns, you should contact our office immediately @ [phone] and ask to be transferred to the General Surgery department. Hortencia Yan MD 08/26/2018 6:40 PM Signed HISTORY AND PHYSICAL - BREAST COMPLAINT Andre Ibarran 1950 REFERRING PHYSICIAN: Darinel Akers MD CHIEF COMPLAINT: Abnormal right breast imaging HPI: The patient is a 68 year old female with a complaint of an abnormal mammogram. The patient had a mammogram with ultrasound on July 28 with follow-up imaging on August 12 which demonstrated: IMPRESSION: INCOMPLETE: NEEDS ADDITIONAL IMAGING EVALUATION The irregular asymmetry in the right breast is indeterminate. ?An ultrasound is recommended. ULTRASOUND OF RIGHT BREAST: 08/12/2018 RESULT: Comparison is made to exams dated: ?07/28/2018 mammogram - [facility], 07/25/2017 mammogram - [facility], and 07/17/2016 mammogram - [facility]. Ultrasound of the right breast was performed. ?Harley scale images of the real-time examination were reviewed. There is an irregular area in the right breast upper outer aspect middle depth. ?This irregular area displays posterior acoustic shadowing. IMPRESSION: SUSPICIOUS OF MALIGNANCY The irregular area in the right breast is at a moderate suspicion for malignancy. ?An ultrasound guided biopsy is recommended. SUMMARY: Note: I cannot be entirely certain that the asymmetry on mammogram and the area of shadowing on ultrasound correspond to the same area. I would recommend ultrasound-guided biopsy. Clip placement after biopsy could be correlated with the mammographic findings. ?Another option would be to needle localize the finding on ultrasound. Followed by mammogram images to see if these 2 areas correspond prior to surgery. Sulaiman syed/robert:08/12/2018 16:54:07 Manager Clinical Pharmacy(s): Hetal ?RT Elbert(Ephraim)(M), [facility]; Aydee ?[facility] letter sent: Abnormal ? OVERALL STUDY BIRADS: 4c Suspicious abnormality - moderate concern but not classic for malignancy Benefit Authorizer: Robert Transcribe Date/Time: Aug 12 2018 ?3:03P Dictated by : SULAIMAN MOSHER, DO This examination was interpreted and the report reviewed and electronically signed by: SULAIMAN MOSHER, DO on Aug 12 2018 ?4:54PM ?EST Results-Findings * * *Final Report* * * DATE OF EXAM: Aug 12 2018 ?4:10PM ? WR[facility] ? 0594 ?- ?[facility] US BREAST LTD RT ?/ PROCEDURE REASON: Abnormal mammogram ?? ? * * * * Physician Interpretation * * * * ?#[id number] - [facility] DIAGNOSTIC RT #[id number] - [facility] US BREAST LTD RT UNILATERAL RIGHT DIGITAL DIAGNOSTIC MAMMOGRAM WITH CAD: 08/12/2018 HISTORY: Abnormal Mammogram/call back right /priors available for comparison Abnormal Mammogram. RESULT: TECHNIQUE: The study was acquired using full field digital technology and interpreted from soft copy. Current study was also evaluated with a Computer Aided Detection (CAD). Comparison is made to exams dated: ?07/28/2018 mammogram - [facility], 07/25/2017 mammogram - [facility], and 07/17/2016 mammogram - [facility]. ?There are scattered fibroglandular elements in right breast. There is an irregular asymmetry in the right breast upper outer aspect middle depth. No other significant masses or calcifications are seen in the breast. The patient denies a history of breast masses. She does not perform a self breast exam routinely. She notes no skin changes. She denies nipple discharge. She notes no axillary masses. She notes no family history of breast problems. She notes no significant breast trauma or breast difficulties in the past. The patient has had 2 pregnancies. Her last mammogram was July 25, 2017. Her last menstrual period was around age 50. Her first menstrual period was at age age 14. The patient is being seen by me today at the request of Dr. Akers for my opinion and advice regarding abnormal right breast imaging. PAST MEDICAL HISTORY Diagnosis Date - Asthma - Macular cyst, hole, or pseudohole of retina Both eyes - Osteopenia after menopause - Shingles PAST SURGICAL HISTORY Procedure Laterality Date - COLONOSCOPY 07/2007 - DISCISSION,2ND CATARACT,LASER 06/26/12 Yag Capsulotomy OS - nevus 1980 face. - VITRECTOMY FOR MACULAR HOLE 06/06/2011 L eye. - VITRECTOMY,MECHANICAL 02-20-12 Pars [place] Vitrectomy ,MP, PCIOL OD Current Outpatient Prescriptions: flaxseed 1,000 mg cap Take by mouth twice daily. Disp: Rfl: vit A,C,I-Vjpg-Bkavox (PRESERVISION AREDS) 7,160-113-100 zvey-nk-kfrt tab Take 1 tablet by mouth twice daily. Disp: Rfl: estradiol (ESTRACE) 0.01 % (0.1 mg/gram) vaginal cream Use small amount at vaginal opening for 4-6 weeks then 1-2 times a week Disp: 1 Tube Rfl: 3 FOLIC ACID ORAL Take by mouth once daily. Disp: Rfl: albuterol HFA (VENTOLIN HFA) 90 mcg/actuation inhaler Inhale 2 Puffs as instructed every 4 hours as needed. Disp: 1 Inhaler Rfl: 5 fluticasone (FLONASE) 50 mcg/actuation nasal spray Use 1 [place] in each nostril once daily. FOR ALLERGIC NASAL SX. Disp: 1 Bottle Rfl: 5 etodolac (LODINE) 400 mg tablet Take 1 tablet by mouth twice daily. Disp: 180 tablet Rfl: 3 Cholecalciferol, Vitamin D3, 2,000 unit cap Take 1 capsule by mouth once daily. Disp: 90 capsule Rfl: 3 Uptl-Nbuy-ELJ#7-P-Hqde-Trevon-Bor (OSTEO BI-FLEX) 750-625-30 mg Tab Take 1 tablet by mouth twice daily. Disp: 60 tablet Rfl: 3 dextran 70/hypromellose(ARTIFICIAL TEARS EYE DROPS) as necessary Disp: Rfl: 0 omega-3 fatty acids(FISH OIL 500 MG CAP) Take two(2) capsule daily. Disp: Rfl: 0 MULTIVITAMIN TAB Take one(1) tablet daily. Disp: Rfl: 0 No current facility-administered medications for this visit. 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 Has her house to take care of Exercise. Stationary bike 5 miles few times a week/ Can't swim, walking bothers her knees. FAMILY HISTORY: FAMILY HISTORY Problem Relation Age of Onset - Heart Father - Lipids Father High Cholesterol - other (osteopenia [Other]) Mother Osteopenia - Cataract Mother - other (Macular Degeneration [Other]) Maternal Grandfather REVIEW OF SYMPTOMS: The review of systems data was entered by the nurse and reviewed by me Nursing Notes: Milagros De La Vega LPN 08/26/2018 1:11 PM Signed REVIEW OF SYSTEMS: General: The patient denies fatigue, denies weight loss, denies weight gain, denies feeling hot, and denies feelings of cold. Eyes: The patient denies glaucoma, NOTES eye injury/surgery, wears glasses or contacts. Ear/Nose/Throat: The patient NOTES allergies, NOTES hayfever, denies ear infections, and denies bloody noses. Cardiovascular: The patient denies chest pain, denies heart disease, denies high blood pressure,denies cardiac stent, denies prior heart attack, denies irregular heart beat, denies high cholesterol, denies poor circulation, denies heart failure, other cardiac issues, denies claudication, denies cold feet, denies peripheral arterial stent. Respiratory: The patient denies tuberculosis, denies pneumonia, NOTES frequent cough, denies pulmonary embolism, NOTES shortness of breath, and denies coughing up blood. Gastrointestinal: The patient denies difficulty swallowing, NOTES acid reflux, denies ulcers, denies vomiting, denies jaundice/hepatitis, denies gallbladder problems, denies black or tarry stools, NOTES hemorrhoids, denies bleeding from rectum, denies diverticulitis, denies constipation, denies diarrhea, denies loss of stool control, and denies hernias. Kidney/Bladder: The patient denies kidney stones, denies urine infections, and denies bloody urine. Skin: The patient denies a history of skin cancer, denies bleeding/changing moles, and denies a history of skin rash. Neurologic: The patient denies a history of epilepsy/convulsions, denies headaches, denies head/spinal injuries, and denies stroke/TIA. Psychiatric: The patient denies psychiatric medications, denies depression, and denies voices, denies substance abuse. Endocrine: The patient denies thyroid disorders, denies diabetes, and denies hormonal problems. Hematologic: The patient denies a history of bruising, denies bleeding, and denies anemia, denies blood clots. Infections: The patient NOTES a history of measles and mumps, denies rheumatic fever, and denies sexually transmitted diseases. Musculoskeletal: The patient denies back pain/injury, denies back problems, NOTES sciatica, denies knee/foot trouble, NOTES arthritis, or denies gout. When was patient's last Mammogram screening? 07/2018 Last Colonoscopy: 2016 Milagros De La Vega LPN 08/26/2018 2:47 PM Signed INFORMED CONSENT Andre Rogerslon Medical Record: [id number] Procedure:us guided right breast biopsy The risks, benefits and anticipated outcomes of the procedure, the risks and benefits of the alternatives to the procedure and the roles and tasks of the personnel to be involved were discussed with the patient and the patient consents to the procedure and agrees to proceed. I verify that I personally obtained Andre Luther's consent. Milagros De La Vega LPN August 26, 2018 2:42 PM Dept of GENERAL SURGERY UNIVERSAL PROTOCOL / SAFETY CHECKLIST Procedure to be performed: us guided right breast biopsy Sign in Communication: Completed Time Out: Team Confirms the Correct Patient, Correct Procedure, Correct Site and Site Marking, Correct Position (if applicable), Prep and Dry Time (if applicable). Time: 243 pm Affirmation of Time Out: YES Sign Out Discussion: Completed Milagros De La Vega LPN PHYSICAL EXAMINATION: General: The patient is 68 year old female, well nourished, well hydrated in no acute distress. The patient is oriented to time, place, and person. VITALS: Blood pressure 146/76, pulse 76, weight 62.6 kg (138 lb). Body mass index is 25.65 kg/m?. HEENT: Normal cephalic, ataumatic, pupils are equally round, sclera are anicteric, mucous membranes are moist, oropharynx is clear. Neck has no masses, asymmetry or lymphadenopathy. Thyroid is unremarkable. Respiratory: Clear to auscultation and percussion. Normal respiratory excursion and pattern. Cardiac: Examination is regular rate and rhythm. Abdominal exam: exam deferred Rectal exam: exam deferred Extremities: no clubbing, cyanosis or edema. No adenopathy. Breast: Visual inspection reveals no retractions, nipple inversion, or skin changes. Palpation of the right breast reveals no dominant or suspicious masses, but multiple benign-feeling nodules. Palpation of the left breast reveals no dominant or suspicious masses, but multiple benign- feeling nodules. Axillary exam demonstrates no suspicious masses in either the left or right axilla. There is no nipple discharge expressed from either the left or right breast. The area of concern was identified with intraoffice ultrasound - there were no obviously palpable abnormalities at that site LABORATORY VALUES: As Noted RADIOLOGIC STUDIES: As Noted PROCEDURE: Ultrasound Guided Core Breast Biopsy The risks, benefits and anticipated outcomes of the procedure, the risks and benefits of the alternatives to the procedure, and the roles and tasks of the personnel to be involved, were discussed with the patient, and the patient consents to the procedure and agrees to proceed. After explaining the procedure and consent was obtained,Andre was positioned. The abnormality in the 9 to 10:00 position of the right breast was identified by ultrasound. Lidocaine was injected in to the skin and a small stab incision was made. The bard core biopsy needle was inserted into the stab incision and advanced. Multiple core were obtained with ultrasound demonstrating targeting into the lesion. A marker clip was then placed via ultrasound guidance. Steristrips were applied to the incision. A bandage was applied to the needle site. Andre tolerated the procedure well. Assessment IMPRESSION: Status post ultrasound guided core breast biopsy right breast PLAN: The patient is to return for results of her ultrasound guided breast biopsy. If the patient notes bleeding from the biopsy site, she is to place pressure on the site. Discomfort from brusing can be managed with an ice pack or non steroidal analegics. Diagnoses: (R92.8) Abnormal finding on breast imaging (primary encounter diagnosis) My findings have been communicated to Dr. Akers via shared medical record. This note will be forwarded to Dr. Inessa Love MD. Return to Clinic: The patient is instructed to follow-up with me in 3 days. Hortencia Yan MD Referring Provider: DARINEL AKERS [[id number]] Allergies As of Date: 08/26/2018 Noted Allergy Reaction DOXYCYCLINE HYCLATE 04/01/2018 5 - Intolerance Comments: Reflux CEPHALOSPORINS 01/19/2008 2 - Rash CODEINE 01/10/2007 8 - GI Upset DUST 01/13/2007 RAGWEED 01/13/2007 Howie [Other] 01/13/2007 Date Reviewed: 08/26/2018 Reviewed by: Hortencia Yan - Fully Assessed Reason for Visit: Mammogram Abnormality [4162] Primary Visit Diagnosis:Abnormal finding on breast imaging [R92.8] Prescriptions as of 08/26/2018 Sig: FLAXSEED 1,000 MG CAPSULE Take by mouth twice daily. VITAMINS A,C,J-HGAM-[id number] 7* Take 1 tablet by mouth twice * ESTRADIOL 0.01% (0.1 MG/GRAM)* Use small amount at vaginal o* FOLIC ACID ORAL Take by mouth once daily. ALBUTEROL SULFATE HFA 90 MCG/* Inhale 2 Puffs as instructed * FLUTICASONE 50 MCG/ACTUATION * Use 1 [place] in each nostril o* ETODOLAC 400 MG TABLET Take 1 tablet by mouth twice * CHOLECALCIFEROL (VITAMIN D3) * Take 1 capsule by mouth once * * GLUCOSAMINE 750 MG-CHONDROITN* Take 1 tablet by mouth twice * * ARTIFICIAL TEARS (DEXTRAN 70-* as necessary * FISH OIL 500 MG CAPSULE Take two(2) capsule daily. * MULTIVITAMIN TABLET Take one(1) tablet daily. Problem List As Of Date 08/26/2018 Noted Resolved Solar Lentigines [L81.4] INVALID FOR*06/22/2014 Seborrheic Keratosis [L82.1] INVALID FOR*06/22/2014 Nobles Angiomas [D18.01] INVALID FOR*06/22/2014 Cutaneous skin tags [L91.8] INVALID FOR*06/22/2014 Bilateral pseudophakia [Z96.1] INVALID FOR*09/20/2017 Pain in joint, lower leg [M25.569] INVALID FOR*09/20/2017 PCO (posterior capsular opacification), left [H*INVALID FOR*09/20/2017 After-cataract, obscuring vision [H26.499] INVALID FOR*09/20/2017 Postmenopausal atrophic vaginitis [N95.2] INVALID FOR* Primary osteoarthritis of left knee [M17.12] INVALID FOR* Mild intermittent asthma without complication [*INVALID FOR* Anal or rectal pain [K62.89] INVALID FOR*09/20/2017 Osteopenia [M85.80] INVALID FOR* Other instructions from your clinician: The following instructions are important for you related to your office visit today with the [facility] General Surgeons. Instructions After OFFICE BASED BREAST BIOPSY Please do not take aspirin or other blood thinners for the next few days. After the procedure, Steri-Strips and a dressing will be placed on your small incision. The dressing may be removed in two to three days after the procedure. The Steri-Strips should be left in place until they fall off. If you have bleeding from the biopsy site, hold pressure with a clean gauze. If the bleeding continues, contact our office immediately. I recommend taking Advil or Tylenol for the discomfort. You should wear a comfortable but somewhat tight fitting bra. If you have significant bruising, an ice pack may improve your discomfort. Please make an appointment to return to our office in 3 days. If you note any additional difficulties, questions, or concerns, you should contact our office immediately @ [phone] and ask to be transferred to the General Surgery department. Visit Notes: >> Milagros Hogan Aug 26, 2018 1:10 PM Status: Signed REVIEW OF SYSTEMS: General: The patient denies fatigue, denies weight loss, denies weight gain, denies feeling hot, and denies feelings of cold. Eyes: The patient denies glaucoma, NOTES eye injury/surgery, wears glasses or contacts. Ear/Nose/Throat: The patient NOTES allergies, NOTES hayfever, denies ear infections, and denies bloody noses. Cardiovascular: The patient denies chest pain, denies heart disease, denies high blood pressure,denies cardiac stent, denies prior heart attack, denies irregular heart beat, denies high cholesterol, denies poor circulation, denies heart failure, other cardiac issues, denies claudication, denies cold feet, denies peripheral arterial stent. Respiratory: The patient denies tuberculosis, denies pneumonia, NOTES frequent cough, denies pulmonary embolism, NOTES shortness of breath, and denies coughing up blood. Gastrointestinal: The patient denies difficulty swallowing, NOTES acid reflux, denies ulcers, denies vomiting, denies jaundice/hepatitis, denies gallbladder problems, denies black or tarry stools, NOTES hemorrhoids, denies bleeding from rectum, denies diverticulitis, denies constipation, denies diarrhea, denies loss of stool control, and denies hernias. Kidney/Bladder: The patient denies kidney stones, denies urine infections, and denies bloody urine. Skin: The patient denies a history of skin cancer, denies bleeding/changing moles, and denies a history of skin rash. Neurologic: The patient denies a history of epilepsy/convulsions, denies headaches, denies head/spinal injuries, and denies stroke/TIA. Psychiatric: The patient denies psychiatric medications, denies depression, and denies voices, denies substance abuse. Endocrine: The patient denies thyroid disorders, denies diabetes, and denies hormonal problems. Hematologic: The patient denies a history of bruising, denies bleeding, and denies anemia, denies blood clots. Infections: The patient NOTES a history of measles and mumps, denies rheumatic fever, and denies sexually transmitted diseases. Musculoskeletal: The patient denies back pain/injury, denies back problems, NOTES sciatica, denies knee/foot trouble, NOTES arthritis, or denies gout. When was patient's last Mammogram screening? 07/2018 Last Colonoscopy: 2017 Milagros De La Vega LPN >> Milagros Hogan Aug 26, 2018 2:42 PM Status: Signed INFORMED CONSENT Andrerosalva Rogerslon Medical Record: [id number] Procedure:us guided right breast biopsy The risks, benefits and anticipated outcomes of the procedure, the risks and benefits of the alternatives to the procedure and the roles and tasks of the personnel to be involved were discussed with the patient and the patient consents to the procedure and agrees to proceed. I verify that I personally obtained Andre Luther's consent. Milagros De La Vega LPN August 26, 2018 2:42 PM Dept of GENERAL SURGERY UNIVERSAL PROTOCOL / SAFETY CHECKLIST Procedure to be performed: us guided right breast biopsy Sign in Communication: Completed Time Out: Team Confirms the Correct Patient, Correct Procedure, Correct Site and Site Marking, Correct Position (if applicable), Prep and Dry Time (if applicable). Time: 243 pm Affirmation of Time Out: YES Sign Out Discussion: Completed Milagros De La Vega LPN Follow-up and Disposition History Recorded Encounter Status:Closed by HORTENCIA YAN MD on 08/26/18 BREAST BIOPSY Observed: 08/26/2018 Status: F Source: [place] (CHOOSE SITE) 12:00 AM [facility] REPOSITORY Patient: ANDRE LUTHER : 1950 (68/F) Acct Num: [id number] Phys: Hortencia Yan MD Unit Num: [id number] Loc: LABSPEC Specimen: [id number] Received: 08/26/181647 Spec Type: BREAST BX TISSUES 1 TISSUES: Right breast, NOS ADDENDUM Addendum Number 1 This addendum is added to incorporate an outside pathology consultation report. The case was examined at [facility] (#[id number]) and the following diagnosis was rendered. Right breast, ultrasound-guided needle core biopsy: Invasive ductal carcinoma, nuclear grade 1. Estrogen receptor is positive, greater than 95% nuclei staining. Progesterone receptor is positive, 80% of nuclei staining. HER2 by IHC is negative, +0. Please see complete above mentioned consultation report in EMR Addendum Signed Niranjan Alonso 09/05/18 <signature on file> COMMENT Immunohistochemistry ([id number]) supports the above diagnosis. ER/NC/Jyx5vsk studies are being performed on sections of tumor and the results from this study will be reported separately ([id number]). Case has been reviewed in consultation with Dr. Hawley who concurs with the above diagnosis. IDC:AM GROSS DESCRIPTION Received is one container labeled with the patient's name and not further designated. The specimen consists of multiple elongated fragments of carlton-yellow fibroadipose tissue that in aggregate measure 1.5 x 0.7 x 0.1 cm. The entire specimen is submitted in one cassette. / Marlena 08/27/18 TC:0 CPT: 68727 HEADER OPERATION: US guided right breast biopsy PRE-OP DIAGNOSIS: Abnormal mammogram TISSUE SUBMITTED: Right breast biopsy ISCHEMIC TIME: 3 minutes FIXATION TIME: 27 hours MICROSCOPIC DESCRIPTION Slides are reviewed. MICROSCOPIC DIAGNOSIS Right breast, ultrasound-guided core biopsy: Invasive ductal carcinoma, nuclear grade 2 (1 cm in greatest length). See comment. Marlena 08/28/18 Signed Niranjan Danielin 08/28/18 <signature on file> Performed By: #### PBRBX #### [facility] [place], [address] IMMUNOHISTOCHEMISTRY Observed: 08/26/2018 Status: F Source: [place] 12:00 AM [facility] REPOSITORY Patient: ANDRE LUTHER : 1950 (68/F) Acct Num: [id number] Phys: Farrah ANTHONY,Hortencia Unit Num: [id number] Loc: LABSPEC Specimen: [id number] Received: 08/28/18 - 1208 Spec Type: IMMUNO TISSUES 1 TISSUES: Right breast, NOS SPECIMEN INFORMATION: Tissue Source: Right breast Clinical Info: Abnormal mammogram Specimen Number: [id number] CPT code: 73435, 88158 x6, 97113 x3 METHODOLOGY: Deparaffinized sections of prefer/formalin-fixed tissue or PAP/DQ stained slides are incubated with monoclonal/polyclonal antibodies/oligonucleotide probes. Localization is made via biotin free immunoperoxidase method. Appropriate controls are performed and reacted as expected. Results on target cell population are indicated in the following table: RESULTS: ANTIBODY / CLONE RESULT E-Cad (ECH-6) positive CK8 (41eshzM44) positive CK5-6 (D5 AND 1684) negative Ki-67 (30-9) positive, low P53 (DO-7) negative P40 (BC28) negative Calponin-1 (RD225C) negative MORPHOMETRIC ANALYSIS ER (clone 6F11) >95%, strong NC (clone 16/1E2) >95%, moderate Her-2Neu (clone CB11) 0 The prognostic test for HER2 is performed on formalin-fixed paraffin embedded tissue. A 3+ (positive) staining pattern is defined as intense, homogeneous, complete, circumferential membranous staining in >10% of contiguous tumor cells. A similar weak (2+) staining pattern is interpreted as equivocal. ALEJANDRA follow- up testing is recommended for all equivocal cases. Positivity/negativity for ER/ NC is reported if > or < 1% of the tumor cells are immuno- reactive, respectively. The ASCO/CAP criteria is used for scoring. Reference: Journal of Clinical Oncology, 2013; 31:9467-0883 AND 2010; 16:2784- 2795. Duration of fixation : 27 Hrs; Sample Adequate: Yes. These assays have not been validated on decalcified tissues. Results should be interpreted with caution given the likelihood of false negativity on decalcified specimens. These tests were developed and their performance characteristics determined by [facility]. They may not have been cleared or approved by the U.S. Food and Drug Administration. The FDA has determined that such clearance or approval is not necessary. INTERPRETATION: Right breast, ultrasound-guided core biopsy: Invasive ductal carcinoma, nuclear grade 2. Positive for estrogen receptors (favorable prognostic indicator). Positive for progesterone receptors (favorable prognostic indicator). Negative for overexpression of AAQ7ssr. SJ:mallory 08/28/18 PHYSICIAN AND INSTITUTION [address] [address] Signed Niranjan Alonso 08/28/18 <signature on file> Performed By: #### PIMM #### [facility] [address] [place] [address]. [place], [address] [facility] Observed: 08/12/2018 Status: COMPLETED Source: VASS 4:54 PM [facility] REPOSITORY [facility] ID: [id number] Author: Mammography Coordinator Service: (none) Author Type: Physician Type: Letter Filed: 08/13/2018 11:33 PM Note Text: August 12, 2018 PID: [id number] Andre Luther [address] [place] [address] Dear Ms. Luther, Your recent breast imaging exam on 08/12/2018 showed an abnormal area. At this time we recommend further evaluation. This does not necessarily mean that there is a serious problem in your breast, but it should not be ignored. Please contact your physician as soon as possible to discuss the results of this exam and decide what the next steps in your medical care should be. If you have already been notified of these findings, please disregard this letter. Thank you for allowing us to help in meeting your health care needs. Sincerely, Dr. Mosher Interpreting Radiologist [facility] (Abnormal) CNCO Observed: 08/12/2018 Status: COMPLETED Source: VASS 4:54 PM [facility] REPOSITORY HNO ID: [id number] Author: Mammography Coordinator Service: (none) Author Type: Physician Type: Letter Filed: 08/13/2018 11:33 PM Note Text: August 12, 2018 PID: [id number] Andre Luther [address] [place] [address] Dear Ms. Luther, Your recent breast imaging exam on 08/12/2018 showed an abnormal area. At this time we recommend further evaluation. This does not necessarily mean that there is a serious problem in your breast, but it should not be ignored. Please contact your physician as soon as possible to discuss the results of this exam and decide what the next steps in your medical care should be. If you have already been notified of these findings, please disregard this letter. Thank you for allowing us to help in meeting your health care needs. Sincerely, Dr. Mosher Interpreting Radiologist [facility] (Abnormal) PROGRESS Observed: 08/12/2018 Status: COMPLETED Source: VASS 4:43 PM [facility] REPOSITORY HNO ID: [id number] Author: Aydee Vargas Rdms Service: (none) Author Type: (none) Type: Progress Notes Filed: 08/12/2018 4:43 PM Note Text: Radiology Service Progress Note PATIENT NAME: Andre Luther DATE OF SERVICE: August 12, 2018 TIME: 4:43 PM PATIENT IDENTITY VERIFICATION COMPLETED USING TWO (2) METHODS: Patient confirmed name verbally and Date of . PATIENT GENDER DATA: Female. status: : No status: NO. PATIENT RELEVANT IMPLANT DATA REVIEWED: Not Applicable RADIOLOGY DEPARTMENT: Ultrasound PERIPHERAL IV DATA: Not applicable SIGNED BY: Aydee Vargas Rdms August 12, 2018 4:43 PM [facility] US BREAST LTD Observed: 08/12/2018 Status: F Source: VASS RT 4:10 PM [facility] REPOSITORY * * *Final Report* * * DATE OF EXAM: Aug 12 2018 4:10PM U 0594 - GERARDO US BREAST LTD RT / PROCEDURE REASON: Abnormal mammogram * * * * Physician Interpretation * * * * #[id number] - [facility] DIAGNOSTIC RT #[id number] - [facility] US BREAST LTD RT UNILATERAL RIGHT DIGITAL DIAGNOSTIC MAMMOGRAM WITH CAD: 08/12/2018 HISTORY: Abnormal Mammogram/call back right /priors available for comparison Abnormal Mammogram. RESULT: TECHNIQUE: The study was acquired using full field digital technology and interpreted from soft copy. Current study was also evaluated with a Computer Aided Detection (CAD). Comparison is made to exams dated: 07/28/2018 mammogram - [facility], 07/25/2017 mammogram [facility], and 07/17/2016 mammogram [facility]. There are scattered fibroglandular elements in right breast. There is an irregular asymmetry in the right breast upper outer aspect middle depth. No other significant masses or calcifications are seen in the breast. IMPRESSION: INCOMPLETE: NEEDS ADDITIONAL IMAGING EVALUATION The irregular asymmetry in the right breast is indeterminate. An ultrasound is recommended. ULTRASOUND OF RIGHT BREAST: 08/12/2018 RESULT: Comparison is made to exams dated: 07/28/2018 [facility] - [facility], [facility], and [facility]. Ultrasound of the right breast was performed. Harley scale images of the real-time examination were reviewed. There is an irregular area in the right breast upper outer aspect middle depth. This irregular area displays posterior acoustic shadowing. IMPRESSION: SUSPICIOUS OF MALIGNANCY The irregular area in the right breast is at a moderate suspicion for malignancy. An ultrasound guided biopsy is recommended. SUMMARY: Note: I cannot be entirely certain that the asymmetry on mammogram and the area of shadowing on ultrasound correspond to the same area. I would recommend ultrasound-guided biopsy. Clip placement after biopsy could be correlated with the mammographic findings. Another option would be to needle localize the finding on ultrasound. Followed by mammogram images to see if these 2 areas correspond prior to surgery. Sulaiman syed/robert:08/12/2018 16:54:07 Multiple national specialty organizations have released breast cancer screening guidelines for women at average risk for developing breast cancer - guidelines that are based on both evidence and opinion, yet differ on when to start and how often to screen for breast cancer. With representation from Breast Imaging, Internal Medicine, Women's Health, Family Medicine, and Medical/Surgical Oncology, the [facility] has carefully reviewed the data and reached the following consensus: 1) All women should engage in shared decision-making with their providers to decide when to start and how often to screen; 2) All women should have the opportunity to start screening mammography at age 40; 3) For women ages 45-55, we recommend annual screening mammograms; 4) For women ages 55 and over, we support both the transition from an annual to a biennial interval if this aligns more with patient's values and preferences, or continuation with annual screening; 5) All women should discuss with their providers when to stop screening mammograms. Manager Clinical Pharmacy(s): Hetal Boswell, RT(R)(M), [facility]; Aydee Vargas, [facility] letter sent: Abnormal OVERALL STUDY BIRADS: 4c Suspicious abnormality - moderate concern but not classic for malignancy Benefit Authorizer: Robert Transcribe Date/Time: Aug 12 2018 3:03P Dictated by : SULAIMAN MOSHER DO This examination was interpreted and the report reviewed and electronically signed by: SULAIMAN MSOHER DO on Aug 12 2018 4:54PM EST [id number] [facility] DIAGNOSTIC RT Observed: 08/12/2018 Status: F Source: VASS 3:17 PM [facility] REPOSITORY * * *Final Report* * * DATE OF EXAM: Aug 12 2018 3:17PM IZA [id number] - [facility] DIAGNOSTIC RT / PROCEDURE REASON: Abnormal mammogram * * * * Physician Interpretation * * * * RESULT: #[id number] - [facility] DIAGNOSTIC RT #[id number] - [facility] US BREAST LTD RT UNILATERAL RIGHT DIGITAL DIAGNOSTIC MAMMOGRAM WITH CAD: 08/12/2018 HISTORY: Abnormal Mammogram/call back right /priors available for comparison Abnormal Mammogram. RESULT: TECHNIQUE: The study was acquired using full field digital technology and interpreted from soft copy. Current study was also evaluated with a Computer Aided Detection (CAD). Comparison is made to exams dated: 07/28/2018 mammogram - [facility], 07/25/2017 mammogram - [facility], and 07/17/2016 mammogram - [facility]. There are scattered fibroglandular elements in right breast. There is an irregular asymmetry in the right breast upper outer aspect middle depth. No other significant masses or calcifications are seen in the breast. IMPRESSION: INCOMPLETE: NEEDS ADDITIONAL IMAGING EVALUATION The irregular asymmetry in the right breast is indeterminate. An ultrasound is recommended. ULTRASOUND OF RIGHT BREAST: 08/12/2018 RESULT: Comparison is made to exams dated: 07/28/2018 mammogram - [facility], 07/25/2017 mammogram - [facility], and 07/17/2016 mammogram - [facility]. Ultrasound of the right breast was performed. Harley scale images of the real-time examination were reviewed. There is an irregular area in the right breast upper outer aspect middle depth. This irregular area displays posterior acoustic shadowing. IMPRESSION: SUSPICIOUS OF MALIGNANCY The irregular area in the right breast is at a moderate suspicion for malignancy. An ultrasound guided biopsy is recommended. SUMMARY: Note: I cannot be entirely certain that the asymmetry on mammogram and the area of shadowing on ultrasound correspond to the same area. I would recommend ultrasound-guided biopsy. Clip placement after biopsy could be correlated with the mammographic findings. Another option would be to needle localize the finding on ultrasound. Followed by mammogram images to see if these 2 areas correspond prior to surgery. Sulaiman syed/robert:08/12/2018 16:54:07 Multiple national specialty organizations have released breast cancer screening guidelines for women at average risk for developing breast cancer - guidelines that are based on both evidence and opinion, yet differ on when to start and how often to screen for breast cancer. With representation from Breast Imaging, Internal Medicine, Women's Health, Family Medicine, and Medical/Surgical Oncology, the [facility] has carefully reviewed the data and reached the following consensus: 1) All women should engage in shared decision-making with their providers to decide when to start and how often to screen; 2) All women should have the opportunity to start screening mammography at age 40; 3) For women ages 45-55, we recommend annual screening mammograms; 4) For women ages 55 and over, we support both the transition from an annual to a biennial interval if this aligns more with patient's values and preferences, or continuation with annual screening; 5) All women should discuss with their providers when to stop screening mammograms. Manager Clinical Pharmacy(s): RT Efe(R)(M), [facility]; Aydee Vargas, [facility] letter sent: Abnormal OVERALL STUDY BIRADS: 4c Suspicious abnormality - moderate concern but not classic for malignancy Benefit Authorizer: Robert Transcribe Date/Time: Aug 12 2018 3:03P Dictated by: SULAIMAN MOSHER DO This examination was interpreted and the report reviewed and electronically signed by: SULAIMAN MOSHER DO on Aug 12 2018 4:54PM EST [id number] PROGRESS Observed: 08/12/2018 Status: COMPLETED Source: [place] 3:03 PM [facility] REPOSITORY HNO ID: [id number] Author: Lexie Nunez Service: (none) Author Type: (none) Type: Progress Notes Filed: 08/12/2018 3:24 PM Note Text: Radiology Service Progress Note PATIENT NAME: Andre Luther DATE OF SERVICE: August 12, 2018 TIME: 3:03 PM PATIENT IDENTITY VERIFICATION COMPLETED USING TWO (2) METHODS: Patient confirmed name verbally and Date of . PATIENT GENDER DATA: Female. status: : No status: NO. PATIENT RELEVANT IMPLANT DATA REVIEWED: Not Applicable RADIOLOGY DEPARTMENT: [facility] diag mammogram PERIPHERAL IV DATA: Not applicable SIGNED BY: Lexie Nunez August 12, 2018 3:03 PM CNCO Observed: 07/28/2018 Status: COMPLETED Source: [place] 4:55 PM [facility] REPOSITORY HNO ID: [id number] Author: Mammography Coordinator Service: (none) Author Type: Physician Type: Letter Filed: 07/29/2018 11:33 PM Note Text: July 28, 2018 PID: [id number] Andre Madison Homa [address] [place] [address] Dear Davion Homa, Your recent breast imaging exam on 07/28/2018 showed a possible finding that requires additional imaging studies for a complete evaluation. Most such findings are probably benign (not cancer). Please call [phone] or [phone] to schedule an appointment for your additional imaging if you have not already done so. Your breast images and report will be kept on file here as part of your permanent medical record and are available for your continuing care. Thank you for allowing us to help in meeting your health care needs. Sincerely, Dr. Priest Interpreting Radiologist [facility] (Additional imaging) BD DXA - AXIAL Observed: 07/28/2018 Status: F Source: [place] SKELETON 9:18 AM [facility] REPOSITORY * * *Final Report* * * DATE OF EXAM: Jul 28 2018 9:18AM WRB [id number] - BD DXA - AXIAL SKELETON / PROCEDURE REASON: Asymptomatic menopausal state * * * * Physician Interpretation * * * * PROCEDURE: BD DXA - AXIAL SKELETON INDICATION: Asymptomatic menopausal state TECHNIQUE: Low dose AP spine and hip images COMPARISON: 07/27/2015 LUMBAR SPINE: The bone mineral density from L1 through L4 is 0.814 grams per square centimeter which yields a T-score of -2.1. This is 5.7% worse. LEFT HIP: The bone mineral density of the total region of the hip is 0.874 grams per square centimeter which yields a T-score of -0.6. . LEFT FEMORAL NECK: The bone mineral density of the femoral neck is 0.693 grams per square centimeter which yields a T-score of -1.4. This is 9.6% worse. RIGHT HIP: The bone mineral density of the total region of the hip is 0.918 grams per square centimeter which yields a T-score of -0.2. . RIGHT FEMORAL NECK: The bone mineral density of the femoral neck is 0.682 grams per square centimeter which yields a T-score of -1.5. . 10-year Fracture Risk (FRAX): Major osteoporotic fracture risk 9.3% Hip fracture risk 1.1% IMPRESSION: Osteopenia in the lumbar spine and both femoral necks, demonstrating interval worsening. WORLD [facility] ORG. CLASSIFICATION OF BONE MASS CLASSIFICATION T-SCORE Normal Greater than -1 Low Bone Mass Between -1 and -2.5 (Osteopenia) Osteoporosis Less than or equal to -2.5 Benefit Authorizer: PSCB Transcribe Date/Time: Jul 28 2018 10:52A Dictated by : ARGENIS DAVILA MD This examination was interpreted and the report reviewed and electronically signed by: ARGENIS DAVILA MD on Jul 28 2018 10:54AM EST [id number] Observed: 07/28/2018 Status: COMPLETED Source: [facility] 8:54 AM [facility] REPOSITORY HNO ID: [id number] Author: Julia Nunez Service: (none) Author Type: (none) Type: Progress Notes Filed: 07/28/2018 9:18 AM Note Text: Andre Luther July 28, 2018 [id number] Double identification: Patient identified by name and Bone Density Completed. Julia Ayers Rt patient told of radiation jk 9:00am not GERARDO SCREENING Observed: 07/28/2018 Status: F Source: [place] 8:46 AM [facility] [place] REPOSITORY * * *Final Report* * * DATE OF EXAM: Jul 28 2018 8:46AM WOW [id number] - GERARDO SCREENING / PROCEDURE REASON: multiple diagnoses * * * * Physician Interpretation * * * * RESULT: #[id number] - GERARDO SCREENING BILATERAL DIGITAL SCREENING MAMMOGRAM WITH CAD: 07/28/2018 HISTORY: Multiple Diagnoses\ Screening Mammogram - patient reports NO breast symptoms. RESULT: TECHNIQUE: The study was acquired using full field digital technology and interpreted from soft copy. Current study was also evaluated with a Computer Aided Detection (CAD). Comparison is made to exams dated: 07/25/2017 mammogram - [facility], 07/17/2016 mammogram, 07/12/2015 mammogram, 06/22/2014 mammogram, 06/04/2013 mammogram, and 04/23/2012 mammogram - [facility]. There are scattered fibroglandular elements in both breasts. There is a possible focal asymmetry in the right breast upper outer aspect middle depth. No other significant masses, calcifications, or other findings are seen in either breast. IMPRESSION: INCOMPLETE: NEEDS ADDITIONAL IMAGING EVALUATION The possible focal asymmetry in the right breast is indeterminate. Additional views are recommended. Maty Priest M.D., lp/penrad:07/28/2018 16:55:59 Manager Clinical Pharmacy: Olive NUNEZ(R)(M), [facility] letter sent: Additional Imaging Needed Mammogram BI-RADS: 0 Incomplete: needs additional imaging evaluation If this report indicates you need additional imaging, and it has NOT yet been performed, please call , to schedule. We sincerely thank you for choosing the [facility] for your breast imaging needs. Multiple national specialty organizations have released breast cancer screening guidelines for women at average risk for developing breast cancer - guidelines that are based on both evidence and opinion, yet differ on when to start and how often to screen for breast cancer. With representation from Breast Imaging, Internal Medicine, Women's Health, Family Medicine, and Medical/Surgical Oncology, the [facility] has carefully reviewed the data and reached the following consensus: 1) All women should engage in shared decision-making with their providers to decide when to start and how often to screen; 2) All women should have the opportunity to start screening mammography at age 40; 3) For women ages 45-55, we recommend annual screening mammograms; 4) For women ages 55 and over, we support both the transition from an annual to a biennial interval if this aligns more with patient's values and preferences, or continuation with annual screening; 5) All women should discuss with their providers when to stop screening mammograms. Benefit Authorizer: Robert Transcribe Date/Time: Jul 28 2018 8:32A Dictated by: MATY PRIEST MD This examination was interpreted and the report reviewed and electronically signed by: MATY PRIEST MD on Jul 28 2018 4:55PM EST [id number] Observed: 06/26/2018 Status: COMPLETED Source: [place] 10:55 AM [facility] REPOSITORY O ID: [id number] Author: Inessa Love Service: (none) Author Type: Physician Type: Progress Notes Filed: 07/01/2018 2:39 PM Note Text: Feels anxious. Seen by Dr Duran a Couple mos ago, dizzy and GERD. If she has idle time she gets fretful. Worries about drusen. Taking eye vitamins. She worries about going blind if she gets macular degen. worries about their 90 year old mom with a 2 story house. Up and down the stairs. Neck pain/ ACTIVE PROBLEM LIST Postmenopausal Atrophic Vaginitis Primary Osteoarthritis of Left Knee Mild Intermittent Asthma Without Complication PAST MEDICAL HISTORY Diagnosis Date - Asthma - Macular cyst, hole, or pseudohole of retina Both eyes - Shingles PAST SURGICAL HISTORY Procedure Laterality Date - COLONOSCOPY 07/2007 - DISCISSION,2ND CATARACT,LASER 06/26/12 Yag Capsulotomy OS - nevus 1980 face. - VITRECTOMY FOR MACULAR HOLE 06/06/2011 L eye. - VITRECTOMY,MECHANICAL 02-20-12 [place] Vitrectomy ,MP, PCIOL OD ALLERGIES Doxycycline Hyclate; Cephalosporins; Codeine; Dust; Ragweed; Howie [Other] MEDICATIONS vit A,C,M-Imer-Ncqacl (PRESERVISION AREDS) 7,160-113-100 zmpq-ll-qeua tab Take 1 tablet by mouth twice daily. estradiol (ESTRACE) 0.01 % (0.1 mg/gram) vaginal cream Use small amount at vaginal opening for 4-6 weeks then 1-2 times a week FOLIC ACID ORAL Take by mouth once daily. albuterol HFA (VENTOLIN HFA) 90 mcg/actuation inhaler Inhale 2 Puffs as instructed every 4 hours as needed. fluticasone (FLONASE) 50 mcg/actuation nasal spray Use 1 Highwood in each nostril once daily. FOR ALLERGIC NASAL SX. etodolac (LODINE) 400 mg tablet Take 1 tablet by mouth twice daily. Cholecalciferol, Vitamin D3, 2,000 unit cap Take 1 capsule by mouth once daily. Cnkr-Irzq-MEM#2-S-Tugt-Trevon-Bor (OSTEO BI-FLEX) 750-625-30 mg Tab Take 1 tablet by mouth twice daily. dextran 70/hypromellose(ARTIFICIAL TEARS EYE DROPS) as necessary omega-3 fatty acids(FISH OIL 500 MG CAP) Take two(2) capsule daily. MULTIVITAMIN TAB Take one(1) tablet daily. FAMILY HISTORY Problem Relation Age of Onset - Heart Father - Lipids Father High Cholesterol - other (osteopenia [Other]) Mother Osteopenia - Cataract Mother - other (Macular Degeneration [Other]) Maternal Grandfather Social History Marital status: Spouse name: Carlos Alberto Years of education: 12 Number of children: 2 Occupational History Occupation Employer Comment Retired Social History Main Topics Smoking status: Never Smoker Smokeless tobacco: Never Used Alcohol use: No Drug use: No Social History Narrative 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 Has her house to take care of Exercise. Stationary bike 5 miles few times a week/ Can't swim, walking bothers her knees. ROS: General: Feels anxious as above. , no weight changes, fever, chills. HEENT: No sinus congestion, earache, sore throat. Cardiac: No chest pain, palpitations, shortness of breath Resp: No cough, wheeze. GI: No reflux symptoms, food intolerance, bowel changes. : No urinary frequency, dysuria. MS: neck tightness. Headache symptoms at times. No other pain or joint complaints. PHYSICAL EXAMINATION BP 137/76 (BP Site: Left Arm, BP Position: Sitting) Pulse 87 Resp 12 Wt 61.8 kg (136 lb 3.2 oz) BMI 25.32 kg/m? General: Alert and oriented, no distress, pleasant and cooperative. Heart: Regular, normal S1 and S2, no murmurs, rubs, or gallops Lungs: Clear to auscultation bilaterally Abdomen: Benign Extremities: Feet/ankles without edema, posterior tibial pulses full and symmetrical Assessment/Plan: (F41.8) Situational anxiety (primary encounter diagnosis) Comment: Plan: LORazepam (ATIVAN) 1 mg tablet Signed Prescriptions Disp Refills LORazepam (ATIVAN) 1 mg tablet 30 tablet 0 Sig: Take 0.5-1 tablets by mouth every 8 hours for 30 days. DELFINO Class: C-IV LIV: No RTO: if persistent symptoms. She understands the lorazepam is not to be used routinely Inessa Love MD CNOV Observed: 06/26/2018 Status: COMPLETED Source: [place] 10:40 AM [facility] REPOSITORY Office Visit ([facility]) ANDRE LUTHER ([id number]) 1950 F Date Time Provider Department 06/26/18 10:40 AM INESSA LOVE [facility] During your visit today, we recorded the following information about you: Pulse Respiration Blood pressure Weight 87/minute 12/minute 137/76 61.8 kg Inessa Love MD 07/01/2018 2:39 PM Signed Feels anxious. Seen by Dr Duran a Couple mos ago, dizzy and GERD. If she has idle time she gets fretful. Worries about drusen. Taking eye vitamins. She worries about going blind if she gets macular degen. worries about their 90 year old mom with a 2 story house. Up and down the stairs. Neck pain/ ACTIVE PROBLEM LIST Postmenopausal Atrophic Vaginitis Primary Osteoarthritis of Left Knee Mild Intermittent Asthma Without Complication PAST MEDICAL HISTORY Diagnosis Date - Asthma - Macular cyst, hole, or pseudohole of retina Both eyes - Shingles PAST SURGICAL HISTORY Procedure Laterality Date - COLONOSCOPY 07/2007 - DISCISSION,2ND CATARACT,LASER 06/26/12 Yag Capsulotomy OS - nevus 1980 face. - VITRECTOMY FOR MACULAR HOLE 06/06/2011 L eye. - VITRECTOMY,MECHANICAL 02-20-12 [place] Vitrectomy ,MP, PCIOL OD ALLERGIES Doxycycline Hyclate; Cephalosporins; Codeine; Dust; Ragweed; Howie [Other] MEDICATIONS vit A,C,X-Cbbt-Mqinku (PRESERVISION AREDS) 7,160-113-100 kfuu-lh-jwth tab Take 1 tablet by mouth twice daily. estradiol (ESTRACE) 0.01 % (0.1 mg/gram) vaginal cream Use small amount at vaginal opening for 4-6 weeks then 1-2 times a week FOLIC ACID ORAL Take by mouth once daily. albuterol HFA (VENTOLIN HFA) 90 mcg/actuation inhaler Inhale 2 Puffs as instructed every 4 hours as needed. fluticasone (FLONASE) 50 mcg/actuation nasal spray Use 1 [place]wood in each nostril once daily. FOR ALLERGIC NASAL SX. etodolac (LODINE) 400 mg tablet Take 1 tablet by mouth twice daily. Cholecalciferol, Vitamin D3, 2,000 unit cap Take 1 capsule by mouth once daily. Qghh-Pxvt-HVA#3-V-Sodu-Trevon-Bor (OSTEO BI-FLEX) 750-625-30 mg Tab Take 1 tablet by mouth twice daily. dextran 70/hypromellose(ARTIFICIAL TEARS EYE DROPS) as necessary omega-3 fatty acids(FISH OIL 500 MG CAP) Take two(2) capsule daily. MULTIVITAMIN TAB Take one(1) tablet daily. FAMILY HISTORY Problem Relation Age of Onset - Heart Father - Lipids Father High Cholesterol - other (osteopenia [Other]) Mother Osteopenia - Cataract Mother - other (Macular Degeneration [Other]) Maternal Grandfather Social History Marital status: Spouse name: Carlos Alberto Years of education: 12 Number of children: 2 Occupational History Occupation Employer Comment Retired Social History Main Topics Smoking status: Never Smoker Smokeless tobacco: Never Used Alcohol use: No Drug use: No Social History Narrative 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 Has her house to take care of Exercise. Stationary bike 5 miles few times a week/ Can't swim, walking bothers her knees. ROS: General: Feels anxious as above. , no weight changes, fever, chills. HEENT: No sinus congestion, earache, sore throat. Cardiac: No chest pain, palpitations, shortness of breath Resp: No cough, wheeze. GI: No reflux symptoms, food intolerance, bowel changes. : No urinary frequency, dysuria. MS: neck tightness. Headache symptoms at times. No other pain or joint complaints. PHYSICAL EXAMINATION BP 137/76 (BP Site: Left Arm, BP Position: Sitting) Pulse 87 Resp 12 Wt 61.8 kg (136 lb 3.2 oz) BMI 25.32 kg/m? General: Alert and oriented, no distress, pleasant and cooperative. Heart: Regular, normal S1 and S2, no murmurs, rubs, or gallops Lungs: Clear to auscultation bilaterally Abdomen: Benign Extremities: Feet/ankles without edema, posterior tibial pulses full and symmetrical Assessment/Plan: (F41.8) Situational anxiety (primary encounter diagnosis) Comment: Plan: LORazepam (ATIVAN) 1 mg tablet Signed Prescriptions Disp Refills LORazepam (ATIVAN) 1 mg tablet 30 tablet 0 Sig: Take 0.5-1 tablets by mouth every 8 hours for 30 days. DELFINO Class: C-IV LIV: No RTO: if persistent symptoms. She understands the lorazepam is not to be used routinely Inessa Love MD Referring Provider: SELF [200] Allergies As of Date: 06/26/2018 Noted Allergy Reaction DOXYCYCLINE HYCLATE 04/01/2018 5 - Intolerance Comments: Reflux CEPHALOSPORINS 01/19/2008 2 - Rash CODEINE 01/10/2007 8 - GI Upset DUST 01/13/2007 RAGWEED 01/13/2007 Howie [Other] 01/13/2007 Date Reviewed: 06/26/2018 Reviewed by: Deedee Sandoval Ma - Fully Assessed Reason for Visit: Anxiety [9] Primary Visit Diagnosis:Situational anxiety [F41.8] Order(s):LORazepam (ATIVAN) 1 mg tabletTake 0.5-1 tablets by mouth every 8 hours for 30 days.Disp: 30 tabletRfl: 0 Prescriptions as of 06/26/2018 Sig: LORAZEPAM 1 MG TABLET Take 0.5-1 tablets by mouth e* VITAMINS A,C,Q-AXUK-FSVTYF 7* Take 1 tablet by mouth twice * ESTRADIOL 0.01% (0.1 MG/GRAM)* Use small amount at vaginal o* FOLIC ACID ORAL Take by mouth once daily. ALBUTEROL SULFATE HFA 90 MCG/* Inhale 2 Puffs as instructed * FLUTICASONE 50 MCG/ACTUATION * Use 1 Highwood in each nostril o* ETODOLAC 400 MG TABLET Take 1 tablet by mouth twice * CHOLECALCIFEROL (VITAMIN D3) * Take 1 capsule by mouth once * * GLUCOSAMINE 750 MG-CHONDROITN* Take 1 tablet by mouth twice * * ARTIFICIAL TEARS (DEXTRAN 70-* as necessary * FISH OIL 500 MG CAPSULE Take two(2) capsule daily. * MULTIVITAMIN TABLET Take one(1) tablet daily. Problem List As Of Date 06/26/2018 Noted Resolved Solar Lentigines [L81.4] INVALID FOR*06/22/2014 Seborrheic Keratosis [L82.1] INVALID FOR*06/22/2014 Nobles Angiomas [D18.01] INVALID FOR*06/22/2014 Cutaneous skin tags [L91.8] INVALID FOR*06/22/2014 Bilateral pseudophakia [Z96.1] INVALID FOR*09/20/2017 Pain in joint, lower leg [M25.569] INVALID FOR*09/20/2017 PCO (posterior capsular opacification), left [H*INVALID FOR*09/20/2017 After-cataract, obscuring vision [H26.499] INVALID FOR*09/20/2017 Postmenopausal atrophic vaginitis [N95.2] INVALID FOR* Primary osteoarthritis of left knee [M17.12] INVALID FOR* Mild intermittent asthma without complication [*INVALID FOR* Anal or rectal pain [K62.89] INVALID FOR*09/20/2017 Prescriptions ordered this encounter Disp Refills Start End LORAZEPAM 1 MG TABLET 30 t* 0 06/26/2018 07/26/2018 Class: Print RX Route: ORAL Sig: Take 0.5-1 tablets by mouth every 8 hours for 30 days. Encounter Status:Closed by FOREIGN LOVE MD on 07/01/18 DELIA Observed: 04/25/2018 Status: COMPLETED Source: [place] 11:00 AM [facility] REPOSITORY [facility] ANDRE LUTHER ([id number]) 1950 F Date Time Provider Department 04/25/18 11:00 AM MIKE BRONSON ([facility] During your visit today, we recorded the following information about you: Temperature Pulse Blood pressure Weight 98.4 degrees 84/minute 141/81 61.7 kg Mike Bronson APRN.CNP 04/25/2018 11:22 AM Signed Chief Complaint Patient presents with: Dizziness: since March - headache - sinus pressure HPI Ander Luther is a 68 year old female who presents here today for Above Complaints. Patient presents to the office for evaluation of lightheadedness. Also having a headache. Has been present since March. Was previously in the office for similar complaints with Dr. Duran on April 01, 2018. Had a normal CBC, CMP. She also had a macular hole repaired in both eyes in 2011. She did go to her relocation associate and had her eyes checked, including her prescription, which changed but was unable to get a new prescription due to having too dry eyes. She is rehydrating her eyes for 6 weeks and then will go back for further eye exam. The sensation of sinus pressure is present. Episodes of lightheadedness occur randomly, usually when in the standing position. States that she will be standing, have the sensation of lightheadedness, start ruminating about it. Has tried to take an Ativan for this complaint. Denies any chest pain, shortness of breath, syncope. No slurring of speech, extremity weakness. Also having ear pressure, which was relieved when she got a massage on April 10. Had a second massage the other day and states that she got some improvement with sinus pressure. Did have some sinus drainage constantly after the massage. At this time, she takes Flonase daily. She did take Mucinex for 4-5 days. Also took some sudafed, which did have some relief. Is requesting an antibiotic as she states that this is what is needed. Persistent on this request. Past medical history, appointments, medications, allergies reviewed. Previous Medical History PAST MEDICAL HISTORY Diagnosis Date - Asthma - Macular cyst, hole, or pseudohole of retina Both eyes - Shingles Previous Surgical History PAST SURGICAL HISTORY Procedure Laterality Date - COLONOSCOPY 07/2007 - DISCISSION,2ND CATARACT,LASER 06/26/12 Yag Capsulotomy OS - nevus 1980 face. - VITRECTOMY FOR MACULAR HOLE 06/06/2011 L eye. - VITRECTOMY,MECHANICAL 02-20-12 [place] Vitrectomy ,MP, PCIOL OD Family History FAMILY HISTORY Problem Relation Age of Onset - Heart Father - Lipids Father High Cholesterol - osteopenia [Other] [OTHER] Mother Osteopenia - Cataract Mother - Macular Degeneration [Other] [OTHER] Maternal Grandfather Patient Allergies ALLERGIES Allergen Reactions - Doxycycline Hyclate Intolerance Reflux - Cephalosporins Rash - Codeine GI Upset - Dust - Ragweed - Howie [Other] Current Medications Current Outpatient Prescriptions on File Prior to Visit: vit A,C,S-Zedu-Vzvvps (PRESERVISION AREDS) 7,160-113-100 fqbb-tp-qwph tab Take 1 tablet by mouth twice daily. estradiol (ESTRACE) 0.01 % (0.1 mg/gram) vaginal cream Use small amount at vaginal opening for 4-6 weeks then 1-2 times a week FOLIC ACID ORAL Take by mouth once daily. albuterol HFA (VENTOLIN HFA) 90 mcg/actuation inhaler Inhale 2 Puffs as instructed every 4 hours as needed. fluticasone (FLONASE) 50 mcg/actuation nasal spray Use 1 [place] in each nostril once daily. FOR ALLERGIC NASAL SX. etodolac (LODINE) 400 mg tablet Take 1 tablet by mouth twice daily. Cholecalciferol, Vitamin D3, 2,000 unit cap Take 1 capsule by mouth once daily. Pubg-Kzep-LGU#2-O-Bvky-Trevon-Bor (OSTEO BI-FLEX) 750-625-30 mg Tab Take 1 tablet by mouth twice daily. dextran 70/hypromellose(ARTIFICIAL TEARS EYE DROPS) as necessary omega-3 fatty acids(FISH OIL 500 MG CAP) Take two(2) capsule daily. MULTIVITAMIN TAB Take one(1) tablet daily. No current facility-administered medications on file prior to visit. 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 Has her house to take care of Exercise. Stationary bike 5 miles few times a week/ Can't swim, walking bothers her knees. REVIEW OF SYSTEMS: as above ? Reviewed relevant PMHx, PSHx, Social Hx, current medications and allergies. EXAM: BP 141/81 Pulse 84 Temp 36.9 ?C (98.4 ?F) (Tympanic) Wt 61.7 kg (136 lb) BMI 25.28 kg/m? General Appearance: Well appearing, alert, in no acute distress, well-hydrated, well nourished.. Head: Normocephalic, no masses, lesions, tenderness or abnormalities. Eyes: Anicteric sclera. Pupils are equally round and reactive to light. Extraocular movements are intact. . Ears: External ears normal, canals clear. Nose/Sinuses: Nares normal, septum midline, mucosa normal, no drainage or sinus tenderness. Oropharynx: Lips, mucosa, and tongue normal, teeth and gums normal, oropharynx normal. Neck: Supple, no adenopathy; thyroid symmetric, normal size, no bruits. Lungs: Lungs clear to auscultation. No wheezing, rhonchi, rales. Heart: RRR without murmur, gallop, or rubs. No ectopy. Extremities: No deformities, edema. Health Maintenance List INFLUENZA(1) due on 05/31/2018 MAMMOGRAM due on 07/25/2018 PNEUMOVAX AGE 65 AND OVER WITH 5YR LOOKBACK(1) due on 08/03/2018 ANNUAL PCP TEAM CHRONIC DISEASE VISIT due on 10/23/2018 DTAP,TDAP,TD(2 - Td) due on 06/23/2020 DIABETES SCREEN due on 04/08/2021 LIPID SCREEN due on 09/06/2021 COLORECTAL CANCER SCREENING,SEE MODIFIER due on 01/04/2027 BONE DENSITY Completed ADULT PREVNAR-13 Completed HEPATITIS C SCREENING Completed Data reviewed Component Latest Ref Rng AND Units 04/08/2018 WBC 3.70 - 11.00 k/uL 3.99 RBC 3.90 - 5.20 m/uL 4.46 Hemoglobin 11.5 - 15.5 g/dL 14.6 Hematocrit 36.0 - 46.0 % 45.9 MCV 80.0 - 100.0 fL 102.9 (H) MCH 26.0 - 34.0 pG 32.7 MCHC 30.5 - 36.0 g/dL 31.8 RDW-CV 11.5 - 15.0 % 12.2 Platelet Count 150 - 400 k/uL 189 MPV 9.0 - 12.7 fL 12.0 Neut% % 48.8 Abs Neut (ANC) 1.45 - 7.50 k/uL 1.93 Lymph% % 40.1 Abs Lymph 1.00 - 4.00 k/uL 1.60 [place]% % 6.3 Abs [place] <0.87 k/uL 0.25 Eosin% % 3.5 Abs Eosin <0.46 k/uL 0.14 Baso% % 1.3 Abs Baso <0.11 k/uL 0.05 Nucleated Reds 0 /100 WBC 0.0 Absolute nRBC <0.01 k/uL <0.01 Diff Type Auto Diff Protein, Total 6.3 - 8.0 g/dL 6.9 Albumin 3.9 - 4.9 g/dL 4.3 Calcium 8.5 - 10.2 mg/dL 9.4 Bilirubin, Total 0.2 - 1.3 mg/dL 0.5 Alkaline Phosphatase 32 - 117 U/L 78 AST 13 - 35 U/L 23 Glucose 74 - 99 mg/dL 94 BUN 7 - 21 mg/dL 17 Creatinine 0.58 - 0.96 mg/dL 0.75 Sodium 136 - 144 mmol/L 142 Potassium 3.7 - 5.1 mmol/L 4.3 Chloride 97 - 105 mmol/L 105 CO2 22 - 30 mmol/L 27 Anion Gap 9 - 18 mmol/L 10 ALT 7 - 38 U/L 20 eGFR- >60 eGFR-All Other Races . >60 ASSESSMENT/PLAN: 1. Sinus pressure - ICD9: 478.19, ICD10: J34.89 - I discussed with patient that I did not believe that she would benefit from an antibiotic, but she was persistent that she would benefit from this therapy and that her random episodes of lightheadedness are related to this sinus pressure. - Will begin treatment with as per antibiotic as written, see orders - Supportive care with plenty of fluids, rest, and analgesia prn. - AZITHROMYCIN 250 MG TABLET - DEXTROMETHORPHAN-GUAIFENESIN 30 MG-600 MG TABLET EXTENDED [id number] HR Discussed following up with ENT if she continues to have sinus pressure, eustachian tube dysfunction. PAYTON Magallon APRN.CNP 04/25/2018 11:11 AM Signed Would recommend ENT if not improving in the next 7 days. Mike Bronson APRN.CNP Referring Provider: SELF [[id number]] Allergies As of Date: 04/25/2018 Noted Allergy Reaction DOXYCYCLINE HYCLATE 04/01/2018 5 - Intolerance Comments: Reflux CEPHALOSPORINS 01/19/2008 2 - Rash CODEINE 01/10/2007 8 - GI Upset DUST 01/13/2007 RAGWEED 01/13/2007 Howie [Other] 01/13/2007 Date Reviewed: 04/25/2018 Reviewed by: Brooke Car Chucking And Boring Machine Operator - Fully Assessed Reason for Visit: Dizziness [36] Cmt: since March - headache - sinus pressure Reason For Visit History Recorded Primary Visit Diagnosis:Sinus pressure [J34.89] Order(s):azithromycin (ZITHROMAX Z-DONG) 250 mg tabletTake 2 tablets day one, then, 1 tablet daily until gone.Disp: 1 PackageRfl: 0 dextromethorphan-guaiFENesin (MUCINEX DM) 30-600 mg per tabletTake 1 tablet by mouth twice daily for 7 days.Disp: 14 tabletRfl: 0 Prescriptions as of 04/25/2018 Sig: VITAMINS A,C,M-KEYY-WXPOPU 7* Take 1 tablet by mouth twice * ESTRADIOL 0.01% (0.1 MG/GRAM)* Use small amount at vaginal o* FOLIC ACID ORAL Take by mouth once daily. ALBUTEROL SULFATE HFA 90 MCG/* Inhale 2 Puffs as instructed * FLUTICASONE 50 MCG/ACTUATION * Use 1 [place]wood in each nostril o* ETODOLAC 400 MG TABLET Take 1 tablet by mouth twice * CHOLECALCIFEROL (VITAMIN D3) * Take 1 capsule by mouth once * * GLUCOSAMINE 750 MG-CHONDROITN* Take 1 tablet by mouth twice * * ARTIFICIAL TEARS (DEXTRAN 70-* as necessary * FISH OIL 500 MG CAPSULE Take two(2) capsule daily. * MULTIVITAMIN TABLET Take one(1) tablet daily. AZITHROMYCIN 250 MG TABLET Take 2 tablets day one, then,* DEXTROMETHORPHAN-GUAIFENESIN * Take 1 tablet by mouth twice * Problem List As Of Date 04/25/2018 Noted Resolved Solar Lentigines [L81.4] INVALID FOR*06/22/2014 Seborrheic Keratosis [L82.1] INVALID FOR*06/22/2014 Nobles Angiomas [D18.01] INVALID FOR*06/22/2014 Cutaneous skin tags [L91.8] INVALID FOR*06/22/2014 Bilateral pseudophakia [Z96.1] INVALID FOR*09/20/2017 Pain in joint, lower leg [M25.569] INVALID FOR*09/20/2017 PCO (posterior capsular opacification), left [H*INVALID FOR*09/20/2017 After-cataract, obscuring vision [H26.499] INVALID FOR*09/20/2017 Postmenopausal atrophic vaginitis [N95.2] INVALID FOR* Primary osteoarthritis of left knee [M17.12] INVALID FOR* Mild intermittent asthma without complication [*INVALID FOR* Anal or rectal pain [K62.89] INVALID FOR*09/20/2017 Other instructions from your clinician: Would recommend ENT if not improving in the next 7 days. Mike Bronson, SUBASSEMBLER.DRAW BENCH OPERATOR HELPER Prescriptions ordered this encounter Disp Refills Start End AZITHROMYCIN 250 MG TABLET 1 Pa* 0 04/25/2018 04/30/2018 Sig: Take 2 tablets day one, then, 1 tablet daily until gone. DEXTROMETHORPHAN-GUAIFENESIN 30 MG-6* 14 t* 0 04/25/2018 05/02/2018 Route: ORAL Sig: Take 1 tablet by mouth twice daily for 7 days. Medications Discontinued During This Encounter azithromycin (ZITHROMAX Z-DONG) 250 m* 1 Pa* 0 11/21/2015 04/25/2018 Sig: Take 2 tablets day one, then, 1 tablet daily until gone. Disc: Reason for discontinue is not on file. Disposition: Return if symptoms worsen or fail to improve. Follow-up and Disposition History Recorded Encounter Status:Closed by MIKE BRONSON CNP on 04/25/18 PROGRESS Observed: 04/25/2018 Status: COMPLETED Source: [facility] 10:46 AM [facility] REPOSITORY HNO ID: [id number] Author: Mike Puckett) Raz Service: (none) Author Type: Nurse Practitioner Type: Progress Notes Filed: 04/25/2018 11:22 AM Note Text: Chief Complaint Patient presents with: Dizziness: since March - headache - sinus pressure HPI Andre Luther is a 68 year old female who presents here today for Above Complaints. Patient presents to the office for evaluation of lightheadedness. Also having a headache. Has been present since March. Was previously in the office for similar complaints with Dr. Duran on April 01, 2018. Had a normal CBC, CMP. She also had a macular hole repaired in both eyes in 2011. She did go to her relocation associate and had her eyes checked, including her prescription, which changed but was unable to get a new prescription due to having too dry eyes. She is rehydrating her eyes for 6 weeks and then will go back for further eye exam. The sensation of sinus pressure is present. Episodes of lightheadedness occur randomly, usually when in the standing position. States that she will be standing, have the sensation of lightheadedness, start ruminating about it. Has tried to take an Ativan for this complaint. Denies any chest pain, shortness of breath, syncope. No slurring of speech, extremity weakness. Also having ear pressure, which was relieved when she got a massage on April 10. Had a second massage the other day and states that she got some improvement with sinus pressure. Did have some sinus drainage constantly after the massage. At this time, she takes Flonase daily. She did take Mucinex for 4-5 days. Also took some sudafed, which did have some relief. Is requesting an antibiotic as she states that this is what is needed. Persistent on this request. Past medical history, appointments, medications, allergies reviewed. Previous Medical History PAST MEDICAL HISTORY Diagnosis Date - Asthma - Macular cyst, hole, or pseudohole of retina Both eyes - Shingles Previous Surgical History PAST SURGICAL HISTORY Procedure Laterality Date - COLONOSCOPY 07/2007 - DISCISSION,2ND CATARACT,LASER 06/26/12 Yag Capsulotomy OS - nevus 1980 face. - VITRECTOMY FOR MACULAR HOLE 06/06/2011 L eye. - VITRECTOMY,MECHANICAL 02-20-12 [place] Vitrectomy ,MP, PCIOL OD Family History FAMILY HISTORY Problem Relation Age of Onset - Heart Father - Lipids Father High Cholesterol - osteopenia [Other] [OTHER] Mother Osteopenia - Cataract Mother - Macular Degeneration [Other] [OTHER] Maternal Grandfather Patient Allergies ALLERGIES Allergen Reactions - Doxycycline Hyclate Intolerance Reflux - Cephalosporins Rash - Codeine GI Upset - Dust - Ragweed - Howie [Other] Current Medications Current Outpatient Prescriptions on File Prior to Visit: vit A,C,E-Cmre-Ziutvj (PRESERVISION AREDS) 7,160-113-100 fzyk-eu-lbgp tab Take 1 tablet by mouth twice daily. estradiol (ESTRACE) 0.01 % (0.1 mg/gram) vaginal cream Use small amount at vaginal opening for 4-6 weeks then 1-2 times a week FOLIC ACID ORAL Take by mouth once daily. albuterol HFA (VENTOLIN HFA) 90 mcg/actuation inhaler Inhale 2 Puffs as instructed every 4 hours as needed. fluticasone (FLONASE) 50 mcg/actuation nasal spray Use 1 [place] in each nostril once daily. FOR ALLERGIC NASAL SX. etodolac (LODINE) 400 mg tablet Take 1 tablet by mouth twice daily. Cholecalciferol, Vitamin D3, 2,000 unit cap Take 1 capsule by mouth once daily. Ydsz-Dzrg-RLB#6-B-Qwoz-Trevon-Bor (OSTEO BI-FLEX) 750-625-30 mg Tab Take 1 tablet by mouth twice daily. dextran 70/hypromellose(ARTIFICIAL TEARS EYE DROPS) as necessary omega-3 fatty acids(FISH OIL 500 MG CAP) Take two(2) capsule daily. MULTIVITAMIN TAB Take one(1) tablet daily. No current facility-administered medications on file prior to visit. 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 Has her house to take care of Exercise. Stationary bike 5 miles few times a week/ Can't swim, walking bothers her knees. REVIEW OF SYSTEMS: as above ? Reviewed relevant PMHx, PSHx, Social Hx, current medications and allergies. EXAM: BP 141/81 Pulse 84 Temp 36.9 ?C (98.4 ?F) (Tympanic) Wt 61.7 kg (136 lb) BMI 25.28 kg/m? General Appearance: Well appearing, alert, in no acute distress, well-hydrated, well nourished.. Head: Normocephalic, no masses, lesions, tenderness or abnormalities. Eyes: Anicteric sclera. Pupils are equally round and reactive to light. Extraocular movements are intact. . Ears: External ears normal, canals clear. Nose/Sinuses: Nares normal, septum midline, mucosa normal, no drainage or sinus tenderness. Oropharynx: Lips, mucosa, and tongue normal, teeth and gums normal, oropharynx normal. Neck: Supple, no adenopathy; thyroid symmetric, normal size, no bruits. Lungs: Lungs clear to auscultation. No wheezing, rhonchi, rales. Heart: RRR without murmur, gallop, or rubs. No ectopy. Extremities: No deformities, edema. Health Maintenance List INFLUENZA(1) due on 05/31/2018 MAMMOGRAM due on 07/25/2018 PNEUMOVAX AGE 65 AND OVER WITH 5YR LOOKBACK(1) due on 08/03/2018 ANNUAL PCP TEAM CHRONIC DISEASE VISIT due on 10/23/2018 DTAP,TDAP,TD(2 - Td) due on 06/23/2020 DIABETES SCREEN due on 04/08/2021 LIPID SCREEN due on 09/06/2021 COLORECTAL CANCER SCREENING,SEE MODIFIER due on 01/04/2027 BONE DENSITY Completed ADULT PREVNAR-13 Completed HEPATITIS C SCREENING Completed Data reviewed Component Latest Ref Rng AND Units 04/08/2018 WBC 3.70 - 11.00 k/uL 3.99 RBC 3.90 - 5.20 m/uL 4.46 Hemoglobin 11.5 - 15.5 g/dL 14.6 Hematocrit 36.0 - 46.0 % 45.9 MCV 80.0 - 100.0 fL 102.9 (H) MCH 26.0 - 34.0 pG 32.7 MCHC 30.5 - 36.0 g/dL 31.8 RDW-CV 11.5 - 15.0 % 12.2 Platelet Count 150 - 400 k/uL 189 MPV 9.0 - 12.7 fL 12.0 Neut% % 48.8 Abs Neut (ANC) 1.45 - 7.50 k/uL 1.93 Lymph% % 40.1 Abs Lymph 1.00 - 4.00 k/uL 1.60 [place]% % 6.3 Abs [place] <0.87 k/uL 0.25 Eosin% % 3.5 Abs Eosin <0.46 k/uL 0.14 Baso% % 1.3 Abs Baso <0.11 k/uL 0.05 Nucleated Reds 0 /100 WBC 0.0 Absolute nRBC <0.01 k/uL <0.01 Diff Type Auto Diff Protein, Total 6.3 - 8.0 g/dL 6.9 Albumin 3.9 - 4.9 g/dL 4.3 Calcium 8.5 - 10.2 mg/dL 9.4 Bilirubin, Total 0.2 - 1.3 mg/dL 0.5 Alkaline Phosphatase 32 - 117 U/L 78 AST 13 - 35 U/L 23 Glucose 74 - 99 mg/dL 94 BUN 7 - 21 mg/dL 17 Creatinine 0.58 - 0.96 mg/dL 0.75 Sodium 136 - 144 mmol/L 142 Potassium 3.7 - 5.1 mmol/L 4.3 Chloride 97 - 105 mmol/L 105 CO2 22 - 30 mmol/L 27 Anion Gap 9 - 18 mmol/L 10 ALT 7 - 38 U/L 20 eGFR- >60 eGFR-All Other Races . >60 ASSESSMENT/PLAN: 1. Sinus pressure - ICD9: 478.19, ICD10: J34.89 - I discussed with patient that I did not believe that she would benefit from an antibiotic, but she was persistent that she would benefit from this therapy and that her random episodes of lightheadedness are related to this sinus pressure. - Will begin treatment with as per antibiotic as written, see orders - Supportive care with plenty of fluids, rest, and analgesia prn. - AZITHROMYCIN 250 MG TABLET - DEXTROMETHORPHAN-GUAIFENESIN 30 MG-600 MG TABLET EXTENDED [id number] HR Discussed following up with ENT if she continues to have sinus pressure, eustachian tube dysfunction. Mike Bronson APRN.DRAW BENCH OPERATOR HELPER CBC AND DIFFERENTIAL Collected: 04/08/2018 Status: F Source: V[facility] 8:41 AM [facility] REPOSITORY TYPE CODE TESTS RESULT OUT OF REFERENCE UNITS RANGE LAB WBC 3.70-11.00 k/uL WBC 3.99 LAB RBC 3.90-5.20 m/uL RBC 4.46 LAB HGB 11.5-15.5 g/dL Hemoglobin 14.6 LAB HCT 36.0-46.0 % Hematocrit 45.9 LAB MCV 80.0-100.0 fL MCV High 102.9 LAB MCH 26.0-34.0 pG MCH 32.7 LAB MCHC 30.5-36.0 g/dL MCHC 31.8 LAB RDWCV 11.5-15.0 % RDW-CV 12.2 LAB PLTCT 150-400 k/uL Platelet Count 189 LAB MPV 9.0-12.7 fL MPV 12.0 LAB ANEUT % Neut% 48.8 LAB AANEUT 1.45-7.50 k/uL Abs Neut 1.93 LAB ALYMP % Lymph% 40.1 LAB AALYMP 1.00-4.00 k/uL Abs Lymph 1.60 LAB AMONO % [place]% 6.3 LAB AAMONO <0.87 k/uL Abs [place] 0.25 LAB AEOS % Eosin% 3.5 LAB AAEOS <0.46 k/uL Abs Eosin 0.14 LAB ABASO % Baso% 1.3 LAB AABASO <0.11 k/uL Abs Baso 0.05 LAB AUNRBC 0 /100 WBC NRBCs 0.0 LAB ABNRBC <0.01 k/uL Absolute nRBC <0.01 LAB DTYP DTYPE Auto Diff Performed By: #### CBCDIF, CMP #### [facility] [address] [place] [address] COMP METABOLIC PANEL Collected: 04/08/2018 Status: F Source: VASS 8:41 AM [facility] REPOSITORY TYPE CODE TESTS RESULT OUT OF REFERENCE UNITS RANGE LAB TP 6.3-8.0 g/dL Protein, Total 6.9 LAB ALB 3.9-4.9 g/dL Albumin 4.3 LAB CA 8.5-10.2 mg/dL Calcium, Total 9.4 LAB TBIL 0.2-1.3 mg/dL Bilirubin, Total 0.5 LAB ALKP 32-117 U/L Alkaline Phosphatase 78 LAB AST 13-35 U/L AST 23 LAB GLU 74-99 mg/dL Glucose 94 Result Comment: The [place] Diabetes Association (ADA) provides guidance for cutoff values for fasting glucose and random glucose. The ADA defines fasting as no caloric intake for at least 8 hours. Fas ting plasma glucose results between 100 to 125 mg/dL indicate increased risk for diabetes (prediabetes). Fasting plasma glucose results greater than or equal to 126 mg/dL meet the criteria for diagnosis of diabetes. In the absence of unequivocal hyperglycemia, results should be confirmed by repeat testing. In a patient with classic symptoms of hyperglycemia or hyperglycemic crisis, random plasma glucose results greater than or equal to 200 mg/dL meet the criteria for diagnosis of diabetes. Reference: Standards of Medical Care in Diabetes 2016, [place] Diabetes Association. Diabetes Care. 2016.39(Suppl 1). LAB BUN 7-21 mg/dL BUN 17 LAB CRET 0.58-0.96 mg/dL Creatinine 0.75 LAB NA 136-144 mmol/L Sodium 142 LAB K 3.7-5.1 mmol/L Potassium 4.3 LAB CL 97-105 mmol/L Chloride 105 LAB CO2 22-30 mmol/L CO2 27 LAB AGAP 9-18 mmol/L Anion Gap 10 LAB ALT 7-38 U/L ALT 20 LAB GFRAA eGFR- Amer. >60 LAB GFRNAA . eGFR-All Other Races >60 Result Comment: eGFR (Estimated GFR) Units of measure: mL/min/1.73 meters squared eGFR is derived from the reexpressed MDRD Study equation using the following parameters: serum creatinine, age, gender and race. The creatinine assay has been calibrated to be traceable to IDMS. An eGFR <60 mL/min/1.73m2 for >3 months is consistent with chronic kidney disease. Refer to KDOQI guidelines for clinical interpretation. In patients with unstable renal function, e.g. those with acute kidney injury, the eGFR may not accurately reflect actual GFR. Performed By: #### CBCDIF, CMP #### [facility] [address] [place], [place] [address] PROGRESS Observed: 04/01/2018 Status: COMPLETED Source: VASS 4:03 PM [facility] REPOSITORY O ID: [id number] Author: Mike Stallings [facility] Service: (none) Author Type: Physician Type: Progress Notes Filed: 04/02/2018 5:03 PM Note Text: Chief Complaint Patient presents with: Dizziness GERD HPI Andre Luther is a 68 year old female who presents here today for symptoms of dizziness and GERD. Here today with her for symptoms of dizziness and GERD. Previous eye surgeries (two) with Dr. Brown at [facility] for Macular holes bilaterally. She states that they told her that her eyes are very sensitive and she didn't need to get new eyeglasses. Dizziness/GERD- Started about 2 weeks ago after seeing Dr. Randall (Experimental Mechanic) for a stye that reoccurs. She was prescribed Doxycycline 20 mg 1 tab po bid and instructed patient to wash out with baby shampoo twice daily. On 03/15/18 she began her first dose while on vacation in [place] and started experiencing symptoms of GERD. Took the dose 45 min prior to bedtime vs 10 min as she was instructed and started having GERD symptoms to the point that she was unable to lie down for quite some time. She didn't take it the remainder of the vacation. On 03/20 and 03/21 she took 3 tabs and went shopping at [employer] with her and started having an episode of dizziness and lightheadedness. Denies any chest pain or sob. BP has been normal. She had to go sit in the store on the floor, in the corner with head between her knee's, until it passed. Experienced one other episode of GERD and slight dizziness but it passed. States that she would cover her one eye and was unable to read out of her right eye with her 3.0 prescription. Today became more concerned and scheduled an appointment. Pt used sunglasses that had 2.25 Rx and the symptoms of head dizziness went away. She wonders if her glasses are too strong and is making her experience these symptoms. Did buy readers from the store where the Rx is 2.50, which is still better then 3.00 and she doesn't experience the symptoms and able to read. Also taking Preservision twice daily. Pt states that she does have allergies, also in her eyes. Previously used Ranitidine for GERD symptoms and now taking 150 mg 1 tab po bid, until being told to discontinue. Past medical history, appointments, medications, allergies reviewed. Previous Medical History PAST MEDICAL HISTORY Diagnosis Date - Asthma - Macular cyst, hole, or pseudohole of retina Both eyes - Shingles Previous Surgical History PAST SURGICAL HISTORY Procedure Laterality Date - COLONOSCOPY 07/2007 - DISCISSION,2ND CATARACT,LASER 06/26/12 Yag Capsulotomy OS - nevus 1980 face. - VITRECTOMY FOR MACULAR HOLE 06/06/2011 L eye. - VITRECTOMY,MECHANICAL 02-20-12 [place] Vitrectomy ,MP, PCIOL OD Family History FAMILY HISTORY Problem Relation Age of Onset - Heart Father - Lipids Father High Cholesterol - osteopenia [Other] [OTHER] Mother Osteopenia - Cataract Mother - Macular Degeneration [Other] [OTHER] Maternal Grandfather Patient Allergies ALLERGIES Allergen Reactions - Cephalosporins Rash - Codeine GI Upset - Dust - Ragweed - Howie [Other] Current Medications Current Outpatient Prescriptions on File Prior to Visit: estradiol (ESTRACE) 0.01 % (0.1 mg/gram) vaginal cream Use small amount at vaginal opening for 4-6 weeks then 1-2 times a week FOLIC ACID ORAL Take by mouth once daily. albuterol HFA (VENTOLIN HFA) 90 mcg/actuation inhaler Inhale 2 Puffs as instructed every 4 hours as needed. fluticasone (FLONASE) 50 mcg/actuation nasal spray Use 1 [place] in each nostril once daily. FOR ALLERGIC NASAL SX. etodolac (LODINE) 400 mg tablet Take 1 tablet by mouth twice daily. Cholecalciferol, Vitamin D3, 2,000 unit cap Take 1 capsule by mouth once daily. Sxoh-Bgny-HLO#5-S-Thkm-Trevon-Bor (OSTEO BI-FLEX) 750-625-30 mg Tab Take 1 tablet by mouth twice daily. dextran 70/hypromellose(ARTIFICIAL TEARS EYE DROPS) as necessary omega-3 fatty acids(FISH OIL 500 MG CAP) Take two(2) capsule daily. MULTIVITAMIN TAB Take one(1) tablet daily. No current facility-administered medications on file prior to visit. 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 Has her house to take care of Exercise. Stationary bike 5 miles few times a week/ Can't swim, walking bothers her knees. EXAM: BP 128/84 (BP Site: Left Arm, BP Position: Sitting, BP Cuff Size: Regular Adult) Pulse 68 Resp 12 Wt 62 kg (136 lb 9.6 oz) BMI 25.39 kg/m? General Appearance: Well appearing, alert, in no acute distress, well-hydrated, well nourished.. Eyes: Anicteric sclera. Pupils are equally round and reactive to light. Extraocular movements are intact. . Ears: External ears normal, canals clear. Oropharynx: Lips, mucosa, and tongue normal, teeth and gums normal, oropharynx normal. Neck: Supple, no adenopathy; thyroid symmetric, normal size, no bruits. Lungs: Lungs clear to auscultation. No wheezing, rhonchi, rales. Heart: RRR without murmur, gallop, or rubs. No ectopy. Health Maintenance List ZOSTER VACCINE (SHINGRIX)(1 of 2) due on 01/15/2002 INFLUENZA(1) due on 05/31/2018 MAMMOGRAM due on 07/25/2018 PNEUMOVAX AGE 65 AND OVER WITH 5YR LOOKBACK(1) due on 08/03/2018 DTAP,TDAP,TD(2 - Td) due on 06/23/2020 DIABETES SCREEN due on 09/13/2020 LIPID SCREEN due on 09/06/2021 COLORECTAL CANCER SCREENING,SEE MODIFIER due on 01/04/2027 BONE DENSITY Completed ADULT PREVNAR-13 Completed HEPATITIS C SCREENING Completed Data reviewed None ASSESSMENT/PLAN: 1. Dizziness - ICD9: 780.4, ICD10: R42 (primary diagnosis) - Possible due to over corrective lenses - Get eyes checked 2. GERD without esophagitis - ICD9: 530.81, ICD10: K21.9 - Stay off abx Doxycycline due to GERD symptoms. - Use Ranitidine 150 mg 1 tab po bid for 1-2 weeks 3. Hordeolum externum of left eye, unspecified eyelid - ICD9: 373.11, ICD10: H00.016 - Continue washing with baby shampoo. - F/u with Dr. Randall Follow up as needed. Mike Duran MD The documentation for this note was completed by Susan Corrigan Ma acting as scribe for Mike Duran MD. April 01, 2018 4:03 PM. CNOV Observed: 04/01/2018 Status: COMPLETED Source: VASS 4:00 PM [facility] REPOSITORY Office Visit (FAMPWS) HOMAANDRE Mojica ([id number]) 1950 F Date Time Provider Department 04/01/18 4:00 PM MIKE DURAN During your visit today, we recorded the following information about you: Pulse Respiration Blood pressure Weight 68/minute 12/minute 128/84 62 kg Mike Duran MD 04/02/2018 5:03 PM Signed Chief Complaint Patient presents with: Dizziness GERD HPI Andre Sharpe Homa is a 68 year old female who presents here today for symptoms of dizziness and GERD. Here today with her for symptoms of dizziness and GERD. Previous eye surgeries (two) with Dr. Brown at [facility] for Macular holes bilaterally. She states that they told her that her eyes are very sensitive and she didn't need to get new eyeglasses. Dizziness/GERD- Started about 2 weeks ago after seeing Dr. Randall (Experimental Mechanic) for a stye that reoccurs. She was prescribed Doxycycline 20 mg 1 tab po bid and instructed patient to wash out with baby shampoo twice daily. On 03/15/18 she began her first dose while on vacation in [place] and started experiencing symptoms of GERD. Took the dose 45 min prior to bedtime vs 10 min as she was instructed and started having GERD symptoms to the point that she was unable to lie down for quite some time. She didn't take it the remainder of the vacation. On 03/20 and 03/21 she took 3 tabs and went shopping at [employer] with her and started having an episode of dizziness and lightheadedness. Denies any chest pain or sob. BP has been normal. She had to go sit in the store on the floor, in the corner with head between her knee's, until it passed. Experienced one other episode of GERD and slight dizziness but it passed. States that she would cover her one eye and was unable to read out of her right eye with her 3.0 prescription. Today became more concerned and scheduled an appointment. Pt used sunglasses that had 2.25 Rx and the symptoms of head dizziness went away. She wonders if her glasses are too strong and is making her experience these symptoms. Did buy readers from the store where the Rx is 2.50, which is still better then 3.00 and she doesn't experience the symptoms and able to read. Also taking Preservision twice daily. Pt states that she does have allergies, also in her eyes. Previously used Ranitidine for GERD symptoms and now taking 150 mg 1 tab po bid, until being told to discontinue. Past medical history, appointments, medications, allergies reviewed. Previous Medical History PAST MEDICAL HISTORY Diagnosis Date - Asthma - Macular cyst, hole, or pseudohole of retina Both eyes - Shingles Previous Surgical History PAST SURGICAL HISTORY Procedure Laterality Date - COLONOSCOPY 07/2007 - DISCISSION,2ND CATARACT,LASER 06/26/12 Yag Capsulotomy OS - nevus 1980 face. - VITRECTOMY FOR MACULAR HOLE 06/06/2011 L eye. - VITRECTOMY,MECHANICAL 02-20-12 Pars Plana Vitrectomy ,MP, PCIOL OD Family History FAMILY HISTORY Problem Relation Age of Onset - Heart Father - Lipids Father High Cholesterol - osteopenia [Other] [OTHER] Mother Osteopenia - Cataract Mother - Macular Degeneration [Other] [OTHER] Maternal Grandfather Patient Allergies ALLERGIES Allergen Reactions - Cephalosporins Rash - Codeine GI Upset - Dust - Ragweed - Howie [Other] Current Medications Current Outpatient Prescriptions on File Prior to Visit: estradiol (ESTRACE) 0.01 % (0.1 mg/gram) vaginal cream Use small amount at vaginal opening for 4-6 weeks then 1-2 times a week FOLIC ACID ORAL Take by mouth once daily. albuterol HFA (VENTOLIN HFA) 90 mcg/actuation inhaler Inhale 2 Puffs as instructed every 4 hours as needed. fluticasone (FLONASE) 50 mcg/actuation nasal spray Use 1 Highwood in each nostril once daily. FOR ALLERGIC NASAL SX. etodolac (LODINE) 400 mg tablet Take 1 tablet by mouth twice daily. Cholecalciferol, Vitamin D3, 2,000 unit cap Take 1 capsule by mouth once daily. Fpzf-Yapq-NUH#0-C-Yvuu-Trevon-Bor (OSTEO BI-FLEX) 750-625-30 mg Tab Take 1 tablet by mouth twice daily. dextran 70/hypromellose(ARTIFICIAL TEARS EYE DROPS) as necessary omega-3 fatty acids(FISH OIL 500 MG CAP) Take two(2) capsule daily. MULTIVITAMIN TAB Take one(1) tablet daily. No current facility-administered medications on file prior to visit. 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 Has her house to take care of Exercise. Stationary bike 5 miles few times a week/ Can't swim, walking bothers her knees. EXAM: BP 128/84 (BP Site: Left Arm, BP Position: Sitting, BP Cuff Size: Regular Adult) Pulse 68 Resp 12 Wt 62 kg (136 lb 9.6 oz) BMI 25.39 kg/m? General Appearance: Well appearing, alert, in no acute distress, well-hydrated, well nourished.. Eyes: Anicteric sclera. Pupils are equally round and reactive to light. Extraocular movements are intact. . Ears: External ears normal, canals clear. Oropharynx: Lips, mucosa, and tongue normal, teeth and gums normal, oropharynx normal. Neck: Supple, no adenopathy; thyroid symmetric, normal size, no bruits. Lungs: Lungs clear to auscultation. No wheezing, rhonchi, rales. Heart: RRR without murmur, gallop, or rubs. No ectopy. Health Maintenance List ZOSTER VACCINE (SHINGRIX)(1 of 2) due on 01/15/2002 INFLUENZA(1) due on 05/31/2018 MAMMOGRAM due on 07/25/2018 PNEUMOVAX AGE 65 AND OVER WITH 5YR LOOKBACK(1) due on 08/03/2018 DTAP,TDAP,TD(2 - Td) due on 06/23/2020 DIABETES SCREEN due on 09/13/2020 LIPID SCREEN due on 09/06/2021 COLORECTAL CANCER SCREENING,SEE MODIFIER due on 01/04/2027 BONE DENSITY Completed ADULT PREVNAR-13 Completed HEPATITIS C SCREENING Completed Data reviewed None ASSESSMENT/PLAN: 1. Dizziness - ICD9: 780.4, ICD10: R42 (primary diagnosis) - Possible due to over corrective lenses - Get eyes checked 2. GERD without esophagitis - ICD9: 530.81, ICD10: K21.9 - Stay off abx Doxycycline due to GERD symptoms. - Use Ranitidine 150 mg 1 tab po bid for 1-2 weeks 3. Hordeolum externum of left eye, unspecified eyelid - ICD9: 373.11, ICD10: H00.016 - Continue washing with baby shampoo. - F/u with Dr. Randall Follow up as needed. Mike Duran MD The documentation for this note was completed by Susan Corrigan Ma acting as scribe for Mike Duran MD. April 01, 2018 4:03 PM. Referring Provider: SELF [[id number]] Allergies As of Date: 04/01/2018 Noted Allergy Reaction DOXYCYCLINE HYCLATE 04/01/2018 5 - Intolerance Comments: Reflux CEPHALOSPORINS 01/19/2008 2 - Rash CODEINE 01/10/2007 8 - GI Upset DUST 01/13/2007 RAGWEED 01/13/2007 Howie [Other] 01/13/2007 Date Reviewed: 04/01/2018 Reviewed by: Susan Corrigan Ma - Fully Assessed Reason for Visit: Dizziness [36] GERD [548] Reason For Visit History Recorded Primary Visit Diagnosis:Dizziness [R42] Other Visit Diagnoses:GERD without esophagitis [K21.9] Hordeolum externum of left eye, unspecified eyelid [H00.016] Prescriptions as of 04/01/2018 Sig: ESTRADIOL 0.01% (0.1 MG/GRAM)* Use small amount at vaginal o* FOLIC ACID ORAL Take by mouth once daily. ALBUTEROL SULFATE HFA 90 MCG/* Inhale 2 Puffs as instructed * FLUTICASONE 50 MCG/ACTUATION * Use 1 Highwood in each nostril o* ETODOLAC 400 MG TABLET Take 1 tablet by mouth twice * CHOLECALCIFEROL (VITAMIN D3) * Take 1 capsule by mouth once * * GLUCOSAMINE 750 MG-CHONDROITN* Take 1 tablet by mouth twice * * ARTIFICIAL TEARS (DEXTRAN 70-* as necessary * FISH OIL 500 MG CAPSULE Take two(2) capsule daily. * MULTIVITAMIN TABLET Take one(1) tablet daily. VITAMINS A,C,F-POOL-TWJQGN 7* Take 1 tablet by mouth twice * Problem List As Of Date 04/01/2018 Noted Resolved Solar Lentigines [L81.4] INVALID FOR*06/22/2014 Seborrheic Keratosis [L82.1] INVALID FOR*06/22/2014 Nobles Angiomas [D18.01] INVALID FOR*06/22/2014 Cutaneous skin tags [L91.8] INVALID FOR*06/22/2014 Bilateral pseudophakia [Z96.1] INVALID FOR*09/20/2017 Pain in joint, lower leg [M25.569] INVALID FOR*09/20/2017 PCO (posterior capsular opacification), left [H*INVALID FOR*09/20/2017 After-cataract, obscuring vision [H26.499] INVALID FOR*09/20/2017 Postmenopausal atrophic vaginitis [N95.2] INVALID FOR* Primary osteoarthritis of left knee [M17.12] INVALID FOR* Mild intermittent asthma without complication [*INVALID FOR* Anal or rectal pain [K62.89] INVALID FOR*09/20/2017 Medications Discontinued During This Encounter doxycycline 20 mg tablet 0 03/11/2018 04/01/2018 Class: Historical Med Route: ORAL Sig: Take 20 mg by mouth twice daily. Disc: Allergic response Disposition: Return if symptoms worsen or fail to improve. Follow-up and Disposition History Recorded Encounter Status:Closed by MIKE DURAN MD on 04/02/18 [facility] Observed: 04/01/2018 Status: COMPLETED Source: [place] 12:00 AM [facility] REPOSITORY Telephone (FPWADS) ANDRE LUTHER ([id number]) 1950 F Date Time Provider Department 04/01/18 INESSA LOVE During your visit today, we recorded the following information about you: Camille Zuniga RN 04/01/2018 12:02 PM Signed Patient states she was on vacation, was put on an antibiotic for an eye issue, stopped the antibiotic for a few days, resumed it but has not taken it since 03/21. Since then has had a few episodes of feeling lightheaded, had to sit on the floor in a store for about 15 minutes until the episode passed. Patient advised to drink a lot of fluids, check her BP, did give readings that were WNL. Advised not to drive until she sees the doctor. Requested to see PCP Advised she could go to the ED, stated, I do not think it is that urgent Transferred to be seen by PCP AMMY Zuniga RN 04/01/2018 12:48 PM Signed Has an appt. For today Inessa Love MD 04/01/2018 5:30 PM Signed OK Inessa Love MD Allergies As of Date: 04/01/2018 Noted Allergy Reaction DOXYCYCLINE HYCLATE 04/01/2018 5 - Intolerance Comments: Reflux CEPHALOSPORINS 01/19/2008 2 - Rash CODEINE 01/10/2007 8 - GI Upset DUST 01/13/2007 RAGWEED 01/13/2007 Howie [Other] 01/13/2007 Date Reviewed: 04/01/2018 Reviewed by: Susan Corrigan Ma - Fully Assessed Reason for Visit: Patient Update [1234] Prescriptions as of 04/01/2018 Sig: ESTRADIOL 0.01% (0.1 MG/GRAM)* Use small amount at vaginal o* FOLIC ACID ORAL Take by mouth once daily. ALBUTEROL SULFATE HFA 90 MCG/* Inhale 2 Puffs as instructed * FLUTICASONE 50 MCG/ACTUATION * Use 1 Highwood in each nostril o* ETODOLAC 400 MG TABLET Take 1 tablet by mouth twice * CHOLECALCIFEROL (VITAMIN D3) * Take 1 capsule by mouth once * * GLUCOSAMINE 750 MG-CHONDROITN* Take 1 tablet by mouth twice * * ARTIFICIAL TEARS (DEXTRAN 70-* as necessary * FISH OIL 500 MG CAPSULE Take two(2) capsule daily. * MULTIVITAMIN TABLET Take one(1) tablet daily. Problem List As Of Date 04/01/2018 Noted Resolved Solar Lentigines [L81.4] INVALID FOR*06/22/2014 Seborrheic Keratosis [L82.1] INVALID FOR*06/22/2014 Nobles Angiomas [D18.01] INVALID FOR*06/22/2014 Cutaneous skin tags [L91.8] INVALID FOR*06/22/2014 Bilateral pseudophakia [Z96.1] INVALID FOR*09/20/2017 Pain in joint, lower leg [M25.569] INVALID FOR*09/20/2017 PCO (posterior capsular opacification), left [H*INVALID FOR*09/20/2017 After-cataract, obscuring vision [H26.499] INVALID FOR*09/20/2017 Postmenopausal atrophic vaginitis [N95.2] INVALID FOR* Primary osteoarthritis of left knee [M17.12] INVALID FOR* Mild intermittent asthma without complication [*INVALID FOR* Anal or rectal pain [K62.89] INVALID FOR*09/20/2017 Encounter Status:Closed by CAMILLE ZUNIGA RN on 04/01/18 PROGRESS Observed: 12/19/2017 Status: COMPLETED Source: [place] 11:36 AM [facility] REPOSITORY HNO ID: [id number] Author: Marialuisa Brown Service: (none) Author Type: Physician Type: Progress Notes Filed: 12/19/2017 11:41 AM Note Text: This is a 64 year old female diagnosed upon referral with macular hole both eyes, s/p Pars plana vitrectomy ou. Visual acuity with correction (MRx) is 20/25- RE and 20/20 LE. IOP 15 /12. Anterior segment exam is significant for centered PCIOL w/ open PC OU. Dilated fundus examination demonstrates closed holes and attached retina in both eyes. I recommend new Manifest refraction given today and observation, f/u in 12 months. I have confirmed and edited as necessary the relevant ophthalmic history, ROS, and the neuro exam findings as obtained by others. I have seen and examined this patient. I have discussed the case and the management of this patient's care with the Resident/Fellow, if applicable. I also have reviewed and agree with the assessment and plan as stated above and agree with all of its relevant components. Marialuisa Brown MD December 19, 2017 11:40 AM PROGRESS Observed: 11/01/2017 Status: COMPLETED Source: [place] 11:09 AM [facility] REPOSITORY HNO ID: [id number] Author: Estrada Reddy V Service: (none) Author Type: Physician Type: Progress Notes Filed: 11/01/2017 11:17 AM Note Text: Andre Luther presents with pain in the right ankle. Symptoms began about 3 weeks ago with no specific underlying cause and since then have been improving. The pain is rated as 3 on a scale of 1-10. Symptoms are not a result of an injury. There are 2 possible contributing factors that she recognizes. The first is new low-cut boots that she was wearing quite a bit over the holiday season. She states that the boots cut right across the area where the burning pain is located on the right ankle. The other factor is that she started back doing stationary bike exercises after a brief layoff. She noted the symptoms shortly after starting increased time on the bike. Initially she was having pain that radiated all the way up to the knee laterally, and even for a brief period of time to the right lateral hip. She states that the pain has since localized to the dorsal aspect of the right foot and ankle, and once again describes it more as a burning sensation than a sharp pain. She denies any ankle swelling, any range of motion restriction, any noticeable weakness in the ankle or foot. 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 PAST MEDICAL HISTORY Diagnosis Date - Asthma - Macular cyst, hole, or pseudohole of retina Both eyes - Shingles PAST SURGICAL HISTORY Procedure Laterality Date - COLONOSCOPY 07/2007 - DISCISSION,2ND CATARACT,LASER 06/26/12 Yag Capsulotomy OS - nevus 1980 face. - VITRECTOMY FOR MACULAR HOLE 06/06/2011 L eye. - VITRECTOMY,MECHANICAL 02-20-12 Pars Plana Vitrectomy ,MP, PCIOL OD Current Outpatient Prescriptions on File Prior to Visit: FOLIC ACID ORAL Take by mouth once daily. albuterol HFA (VENTOLIN HFA) 90 mcg/actuation inhaler Inhale 2 Puffs as instructed every 4 hours as needed. fluticasone (FLONASE) 50 mcg/actuation nasal spray Use 1 [place]wood in each nostril once daily. FOR ALLERGIC NASAL SX. etodolac (LODINE) 400 mg tablet Take 1 tablet by mouth twice daily. Cholecalciferol, Vitamin D3, 2,000 unit cap Take 1 capsule by mouth once daily. Aqft-Ebcf-EFU#2-S-Cfyo-Trevon-Bor (OSTEO BI-FLEX) 750-625-30 mg Tab Take 1 tablet by mouth twice daily. dextran 70/hypromellose(ARTIFICIAL TEARS EYE DROPS) as necessary omega-3 fatty acids(FISH OIL 500 MG CAP) Take two(2) capsule daily. MULTIVITAMIN TAB Take one(1) tablet daily. No current facility-administered medications on file prior to visit. Physical Exam Findings: General exam: Normal, Extremeties right knee shows no soft tissue swelling, range of motion restriction, instability, or pain with palpation. Evaluation of the right ankle shows normal vibratory sensation across the dorsal aspect of the ankle and foot compares equally to the left side. There is no redness, warmth, or soft tissue swelling. Full range of motion in the ankle with no restriction or reported pain. EHL strength is 5 out of 5. The area reported as the patient has burning pain is over the dorsal aspect of the ankle. Assessment: Anterior ankle pain, right Symptoms describes seem to be more from sensorineural cause, possibly due to superficial nerve impingement from the boots she was wearing over Krishna or her increased exercise on a stationary bike. Plan: 1. Patient Instructions: Activity modification as described, avoid constricting boots or shoes that irritate the area of injury. 2. Consider using topical rub such as Unker's Patient is given range of motion exercises for ankle rehabilitation Follow-up if symptoms continue or worsen. PROGRESS Observed: 11/01/2017 Status: COMPLETED Source: [place] 10:40 AM [facility] [place] REPOSITORY [facility] ID: [id number] Author: Aileen Lucas Ma Service: (none) Author Type: (none) Type: Progress Notes Filed: 11/01/2017 11:17 AM Note Text: AMB ROOMING INTAKE FLOWSHEET DATA Risk Screening Do you have concerns about personal safety or safety in the home?: No Pain Pain Score: 3/10 Pain Location: Ankle-Right Description: Burning Duration Amount of Time: 3 Duration Units: Weeks Frequency: Intermittent Intervention: Medication Patient here today for evaluation of right ankle pain x [address] Love. [facility] today at [facility]. XR TIBIA FIBULA 2V Observed: 11/01/2017 Status: F Source: [place] AP/LAT RT 10:18 AM [facility] REPOSITORY * * *Final Report* * * DATE OF EXAM: Nov 01 2017 10:18AM [id number] - XR TIBIA FIBULA 2V AP/LAT RT / PROCEDURE REASON: Pain in right lower leg * * * * Physician Interpretation * * * * PROCEDURE: Right tibia/fibula INDICATION: Pain in right lower leg . TECHNIQUE: XR TIBIA FIBULA 2V AP/LAT RT COMPARISON: None FINDINGS: No fractures or dislocations are seen. The bones, joint spaces and soft tissues are unremarkable. IMPRESSION: Negative Benefit Authorizer: PSCAlal Transcribe Date/Time: Nov 01 2017 10:57A Dictated by : ARGENIS DAVILA MD This examination was interpreted and the report reviewed and electronically signed by: ARGENIS DAVILA MD on Nov 01 2017 10:58AM EST [id number] PROGRESS Observed: 11/01/2017 Status: COMPLETED Source: [place] 10:10 AM [facility] REPOSITORY HNO ID: [id number] Author: Shahnaz Cuevas (Rt) Mike Diaz Service: (none) Author Type: Sheet Metal Technician Type: Progress Notes Filed: 11/01/2017 10:18 AM Note Text: Radiology Service Progress Note PATIENT NAME: Andre Luther DATE OF SERVICE: November 01, 2017 TIME: 10:10 AM PATIENT IDENTITY VERIFICATION COMPLETED USING TWO (2) METHODS: Patient confirmed name verbally and Date of . PATIENT GENDER DATA: Female. status: : No status: NO. PATIENT RELEVANT IMPLANT DATA REVIEWED: Not Applicable RADIOLOGY DEPARTMENT: General X-ray: Exam(s) Completed: Lower Extremity X-Ray(s): Tibia Fibula, Right: PERIPHERAL IV DATA: Not applicable SIGNED BY: RT Jalil November 01, 2017 10:10 AM PROGRESS Observed: 10/23/2017 Status: COMPLETED Source: [place] 9:43 AM [facility] REPOSITORY HNO ID: [id number] Author: Inessa Love Service: (none) Author Type: Physician Type: Progress Notes Filed: 10/24/2017 7:51 AM Note Text: Chief Complaint Patient presents with: Pain: R ankle, knee, aching HPI Andre Luther is a 67 year old female who presents here today for eval of R leg pain A couple weeks ago pain across the top of the foot, R foot. Several days ago R knee started hurting. Over the course of the week it progressed up the leg over the past few nights. Past medical history, appointments, medications, allergies reviewed. Previous Medical History PAST MEDICAL HISTORY Diagnosis Date - Asthma - Macular cyst, hole, or pseudohole of retina Both eyes - Shingles Previous Surgical History PAST SURGICAL HISTORY Procedure Laterality Date - COLONOSCOPY 07/2007 - DISCISSION,2ND CATARACT,LASER 06/26/12 Yag Capsulotomy OS - nevus 1980 face. - VITRECTOMY FOR MACULAR HOLE 06/06/2011 L eye. - VITRECTOMY,MECHANICAL 02-20-12 Pars Plana Vitrectomy ,MP, PCIOL OD Family History FAMILY HISTORY Problem Relation Age of Onset - Heart Father - Lipids Father High Cholesterol - osteopenia [Other] [OTHER] Mother Osteopenia - Cataract Mother - Macular Degeneration [Other] [OTHER] Maternal Grandfather Patient Allergies ALLERGIES Allergen Reactions - Cephalosporins Rash - Codeine GI Upset - Dust - Ragweed - Howie [Other] Current Medications Current Outpatient Prescriptions on File Prior to Visit: albuterol HFA (VENTOLIN HFA) 90 mcg/actuation inhaler Inhale 2 Puffs as instructed every 4 hours as needed. fluticasone (FLONASE) 50 mcg/actuation nasal spray Use 1 [place]wood in each nostril once daily. FOR ALLERGIC NASAL SX. etodolac (LODINE) 400 mg tablet Take 1 tablet by mouth twice daily. Cholecalciferol, Vitamin D3, 2,000 unit cap Take 1 capsule by mouth once daily. Vgcb-Apqf-SDY#1-U-Iphe-Trevon-Bor (OSTEO BI-FLEX) 750-625-30 mg Tab Take 1 tablet by mouth twice daily. dextran 70/hypromellose(ARTIFICIAL TEARS EYE DROPS) as necessary omega-3 fatty acids(FISH OIL 500 MG CAP) Take two(2) capsule daily. MULTIVITAMIN TAB Take one(1) tablet daily. No current facility-administered medications on file prior to visit. 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 Has her house to take care of Exercise. Stationary bike 5 miles few times a week/ Can't swim, walking bothers her knees. ROS: General: Feels well, no weight changes, fever, chills. HEENT: No sinus congestion, earache, sore throat. Cardiac: No chest pain, palpitations, shortness of breath Resp: No cough, wheeze. GI: No reflux symptoms, food intolerance, bowel changes. : No urinary frequency, dysuria. MS: No pain or joint complaints. PHYSICAL EXAMINATION BP (!) 136/48 Pulse (!) 44 Ht 156.2 cm (5' 1.5) Wt 62.1 kg (137 lb) SpO2 99% BMI 25.47 kg/m2 General: Alert and oriented, no distress, pleasant and cooperative. She walks without a limp Heart: Regular, normal S1 and S2, no murmurs, rubs, or gallops Lungs: Clear to auscultation bilaterally Abdomen: Benign Extremities: Feet/ankles without edema, posterior tibial pulses full and symmetrical There is minimal pain across the dorsal reflection of the ankle from the foot. No erythema or swelling, no palpable thickening subcutaneous. The calf is not tender at all, there is no induration Health Maintenance List MAMMOGRAM due on 07/25/2018 PNEUMOVAX AGE 65 AND OVER WITH 5YR LOOKBACK(1) due on 08/03/2018 TETANUS due on 06/23/2020 DIABETES SCREEN due on 09/13/2020 LIPID SCREEN due on 09/06/2021 COLORECTAL CANCER SCREENING,SEE MODIFIER due on 01/04/2027 BONE DENSITY Completed ADULT PREVNAR-13 Completed INFLUENZA Completed HEPATITIS C SCREENING Completed Data reviewed Assessment/Plan: (M79.604) Right leg pain (primary encounter diagnosis) Comment: this is not indicative of a DVT, nor a herniated disc, perhaps a peripheral nerve pinch or muscular pain. Plan: observe for now, the patient is relieved it's not a DVT so will wait to see if it improves before further eval No medications selected for refill. RTO: few wks if not settling down. Inessa Love MD CNOV Observed: 10/23/2017 Status: COMPLETED Source: [place] 9:40 AM [facility] REPOSITORY Office Visit (WADS) ANDRE LUTHER ([id number]) 1950 F Date Time Provider Department 10/23/17 9:40 AM INESSA LOVE During your visit today, we recorded the following information about you: Pulse Blood pressure Weight Height 44/minute 136/48 62.1 kg 1.562 m Inessa Love MD 10/24/2017 7:51 AM Signed Chief Complaint Patient presents with: Pain: R ankle, knee, aching HPI Andre Luther is a 67 year old female who presents here today for eval of R leg pain A couple weeks ago pain across the top of the foot, R foot. Several days ago R knee started hurting. Over the course of the week it progressed up the leg over the past few nights. Past medical history, appointments, medications, allergies reviewed. Previous Medical History PAST MEDICAL HISTORY Diagnosis Date - Asthma - Macular cyst, hole, or pseudohole of retina Both eyes - Shingles Previous Surgical History PAST SURGICAL HISTORY Procedure Laterality Date - COLONOSCOPY 07/2007 - DISCISSION,2ND CATARACT,LASER 06/26/12 Yag Capsulotomy OS - nevus 1980 face. - VITRECTOMY FOR MACULAR HOLE 06/06/2011 L eye. - VITRECTOMY,MECHANICAL 02-20-12 [place] Vitrectomy ,MP, PCIOL OD Family History FAMILY HISTORY Problem Relation Age of Onset - Heart Father - Lipids Father High Cholesterol - osteopenia [Other] [OTHER] Mother Osteopenia - Cataract Mother - Macular Degeneration [Other] [OTHER] Maternal Grandfather Patient Allergies ALLERGIES Allergen Reactions - Cephalosporins Rash - Codeine GI Upset - Dust - Ragweed - Howie [Other] Current Medications Current Outpatient Prescriptions on File Prior to Visit: albuterol HFA (VENTOLIN HFA) 90 mcg/actuation inhaler Inhale 2 Puffs as instructed every 4 hours as needed. fluticasone (FLONASE) 50 mcg/actuation nasal spray Use 1 [place] in each nostril once daily. FOR ALLERGIC NASAL SX. etodolac (LODINE) 400 mg tablet Take 1 tablet by mouth twice daily. Cholecalciferol, Vitamin D3, 2,000 unit cap Take 1 capsule by mouth once daily. Orox-Ddsw-UHG#4-Q-Mbjy-Trevon-Bor (OSTEO BI-FLEX) 750-625-30 mg Tab Take 1 tablet by mouth twice daily. dextran 70/hypromellose(ARTIFICIAL TEARS EYE DROPS) as necessary omega-3 fatty acids(FISH OIL 500 MG CAP) Take two(2) capsule daily. MULTIVITAMIN TAB Take one(1) tablet daily. No current facility-administered medications on file prior to visit. 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 Has her house to take care of Exercise. Stationary bike 5 miles few times a week/ Can't swim, walking bothers her knees. ROS: General: Feels well, no weight changes, fever, chills. HEENT: No sinus congestion, earache, sore throat. Cardiac: No chest pain, palpitations, shortness of breath Resp: No cough, wheeze. GI: No reflux symptoms, food intolerance, bowel changes. : No urinary frequency, dysuria. MS: No pain or joint complaints. PHYSICAL EXAMINATION BP (!) 136/48 Pulse (!) 44 Ht 156.2 cm (5' 1.5ANDquot;) Wt 62.1 kg (137 lb) SpO2 99% BMI 25.47 kg/m2 General: Alert and oriented, no distress, pleasant and cooperative. She walks without a limp Heart: Regular, normal S1 and S2, no murmurs, rubs, or gallops Lungs: Clear to auscultation bilaterally Abdomen: Benign Extremities: Feet/ankles without edema, posterior tibial pulses full and symmetrical There is minimal pain across the dorsal reflection of the ankle from the foot. No erythema or swelling, no palpable thickening subcutaneous. The calf is not tender at all, there is no induration Health Maintenance List MAMMOGRAM due on 07/25/2018 PNEUMOVAX AGE 65 AND OVER WITH 5YR LOOKBACK(1) due on 08/03/2018 TETANUS due on 06/23/2020 DIABETES SCREEN due on 09/13/2020 LIPID SCREEN due on 09/06/2021 COLORECTAL CANCER SCREENING,SEE MODIFIER due on 01/04/2027 BONE DENSITY Completed ADULT PREVNAR-13 Completed INFLUENZA Completed HEPATITIS C SCREENING Completed Data reviewed Assessment/Plan: (M79.604) Right leg pain (primary encounter diagnosis) Comment: this is not indicative of a DVT, nor a herniated disc, perhaps a peripheral nerve pinch or muscular pain. Plan: observe for now, the patient is relieved it's not a DVT so will wait to see if it improves before further eval No medications selected for refill. RTO: few wks if not settling down. Inessa Love MD Referring Provider: INESSA LOVE [[id number]] Allergies As of Date: 10/23/2017 Noted Allergy Reaction CEPHALOSPORINS 01/19/2008 2 - Rash CODEINE 01/10/2007 8 - GI Upset DUST 01/13/2007 RAGWEED 01/13/2007 Howie [Other] 01/13/2007 Date Reviewed: 10/23/2017 Reviewed by: Dawit Azul - Fully Assessed Reason for Visit: Pain [78] Cmt: R ankle, knee, aching Primary Visit Diagnosis:Right leg pain [M79.604] Prescriptions as of 10/23/2017 Sig: FOLIC ACID ORAL Take by mouth once daily. ALBUTEROL SULFATE HFA 90 MCG/* Inhale 2 Puffs as instructed * FLUTICASONE 50 MCG/ACTUATION * Use 1 [place] in each nostril o* ETODOLAC 400 MG TABLET Take 1 tablet by mouth twice * CHOLECALCIFEROL (VITAMIN D3) * Take 1 capsule by mouth once * * GLUCOSAMINE 750 MG-CHONDROITN* Take 1 tablet by mouth twice * * ARTIFICIAL TEARS (DEXTRAN 70-* as necessary * FISH OIL 500 MG CAPSULE Take two(2) capsule daily. * MULTIVITAMIN TABLET Take one(1) tablet daily. Problem List As Of Date 10/23/2017 Noted Resolved Solar Lentigines [L81.4] INVALID FOR*06/22/2014 Seborrheic Keratosis [L82.1] INVALID FOR*06/22/2014 Nobles Angiomas [D18.01] INVALID FOR*06/22/2014 Cutaneous skin tags [L91.8] INVALID FOR*06/22/2014 Bilateral pseudophakia [Z96.1] INVALID FOR*09/20/2017 Pain in joint, lower leg [M25.569] INVALID FOR*09/20/2017 PCO (posterior capsular opacification), left [H*INVALID FOR*09/20/2017 After-cataract, obscuring vision [H26.499] INVALID FOR*09/20/2017 Postmenopausal atrophic vaginitis [N95.2] INVALID FOR* Primary osteoarthritis of left knee [M17.12] INVALID FOR* Mild intermittent asthma without complication [*INVALID FOR* Anal or rectal pain [K62.89] INVALID FOR*09/20/2017 Encounter Status:Closed by FOREIGN LOVE MD on 10/24/17 PROGRESS Observed: 09/20/2017 Status: COMPLETED Source: V[place] 8:26 AM [facility] [place] REPOSITORY HNO ID: [id number] Author: Inessa Love Service: (none) Author Type: Physician Type: Progress Notes Filed: 09/20/2017 12:09 PM Note Text: Chief Complaint Patient presents with: Physical HPI Andre Luther is a 67 year old female who presents here today for follow-up of ACTIVE PROBLEM LIST Bilateral Pseudophakia Pain in Joint, Lower Leg Pco (Posterior Capsular Opacification), Left After-Cataract, Obscuring Vision Postmenopausal Atrophic Vaginitis Primary Osteoarthritis of Left Knee Mild Intermittent Asthma Without Complication Anal Or Rectal Pain . She has not been taking calcium Past medical history, appointments, medications, allergies reviewed. Previous Medical History PAST MEDICAL HISTORY Diagnosis Date - Asthma - Macular cyst, hole, or pseudohole of retina Both eyes - Shingles Previous Surgical History PAST SURGICAL HISTORY Procedure Laterality Date - COLONOSCOPY 07/2007 - DISCISSION,2ND CATARACT,LASER 06/26/12 Yag Capsulotomy OS - nevus 1980 face. - VITRECTOMY FOR MACULAR HOLE 06/06/2011 L eye. - VITRECTOMY,MECHANICAL 02-20-12 [place] Vitrectomy ,MP, PCIOL OD Family History FAMILY HISTORY Problem Relation Age of Onset - Heart Father - Lipids Father High Cholesterol - osteopenia [Other] [OTHER] Mother Osteopenia - Cataract Mother - Macular Degeneration [Other] [OTHER] Maternal Grandfather Patient Allergies ALLERGIES Allergen Reactions - Cephalosporins Rash - Codeine GI Upset - Dust - Ragweed - Howie [Other] Current Medications Current Outpatient Prescriptions on File Prior to Visit: etodolac (LODINE) 400 mg tablet Take 1 tablet by mouth twice daily. Cholecalciferol, Vitamin D3, 2,000 unit cap Take 1 tablet by mouth once daily. fluticasone (FLONASE) 50 mcg/actuation nasal spray Use 1 [place] in each nostril once daily. FOR ALLERGIC NASAL SX. albuterol HFA (VENTOLIN HFA) 90 mcg/actuation inhaler Inhale 2 Puffs as instructed every 4 hours as needed. Axos-Dnog-HEH#1-L-Tffb-Trevon-Bor (OSTEO BI-FLEX) 750-625-30 mg Tab Take 1 tablet by mouth twice daily. dextran 70/hypromellose(ARTIFICIAL TEARS EYE DROPS) as necessary omega-3 fatty acids(FISH OIL 500 MG CAP) Take two(2) capsule daily. MULTIVITAMIN TAB Take one(1) tablet daily. No current facility-administered medications on file prior to visit. 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 Has her house to take care of Exercise. Stationary bike 5 miles few times a week/ Can't swim, walking bothers her knees. ROS: General: Feels well, no weight changes, fever, chills. HEENT: No sinus congestion, earache, sore throat. Cardiac: No chest pain, palpitations, shortness of breath Resp: No cough, wheeze. GI: mikldo reflux symptoms, food intolerance, bowel changes. : No urinary frequency, dysuria. MS: No pain or joint complaints. PHYSICAL EXAMINATION BP 120/80 Pulse 78 Resp 16 Ht 154.9 cm (5' 1) Wt 61.7 kg (136 lb) BMI 25.7 kg/m2 General: Alert and oriented, no distress, pleasant and cooperative. Ears normal. Throat and pharynx normal. Neck supple. No adenopathy or masses in the neck or supraclavicular regions. Sinuses non tender. Clear post nasal drainage.e Heart: Regular, normal S1 and S2, no murmurs, rubs, or gallops Lungs: Clear to auscultation bilaterally Abdomen: Benign Extremities: Feet/ankles without edema, posterior tibial pulses full and symmetrical No rashes or suspicious skin lesions noted. Health Maintenance List MAMMOGRAM due on 07/25/2018 PNEUMOVAX AGE 65 AND OVER WITH 5YR LOOKBACK(1) due on 08/03/2018 TETANUS due on 06/23/2020 DIABETES SCREEN due on 09/13/2020 LIPID SCREEN due on 09/06/2021 COLORECTAL CANCER SCREENING,SEE MODIFIER due on 01/04/2027 BONE DENSITY Completed ADULT PREVNAR-13 Completed INFLUENZA Completed HEPATITIS C SCREENING Completed Data reviewed Assessment/Plan: Lab Results Component Value Date/Time CHOL 211 (H) 09/06/2016 09:35 AM HDL 66 09/06/2016 09:35 AM LDL 116 09/06/2016 09:35 AM Signed Prescriptions Disp Refills albuterol HFA (VENTOLIN HFA) 90 mcg/actuation inhaler 1 Inhaler 5 Sig: Inhale 2 Puffs as instructed every 4 hours as needed. LIV: No fluticasone (FLONASE) 50 mcg/actuation nasal spray 1 Bottle 5 Sig: Use 1 [place] in each nostril once daily. FOR ALLERGIC NASAL SX. LIV: No etodolac (LODINE) 400 mg tablet 180 tablet 3 Sig: Take 1 tablet by mouth twice daily. LIV: No Cholecalciferol, Vitamin D3, 2,000 unit cap 90 capsule 3 Sig: Take 1 capsule by mouth once daily. LIV: No RTO: annual Inessa Love MD CNOV Observed: 09/20/2017 Status: COMPLETED Source: VASS 8:20 AM [facility] REPOSITORY Office Visit (FAMPWS) ANDRE LUTHER ([id number]) 1950 F Date Time Provider Department 09/20/17 8:20 AM INESSA LOVEPWS During your visit today, we recorded the following information about you: Pulse Respiration Blood pressure Weight 78/minute 16/minute 120/80 61.7 kg Height 1.549 m Inessa Love MD 09/20/2017 12:09 PM Signed Chief Complaint Patient presents with: Physical HPI Andre Luther is a 67 year old female who presents here today for follow-up of ACTIVE PROBLEM LIST Bilateral Pseudophakia Pain in Joint, Lower Leg Pco (Posterior Capsular Opacification), Left After-Cataract, Obscuring Vision Postmenopausal Atrophic Vaginitis Primary Osteoarthritis of Left Knee Mild Intermittent Asthma Without Complication Anal Or Rectal Pain . She has not been taking calcium Past medical history, appointments, medications, allergies reviewed. Previous Medical History PAST MEDICAL HISTORY Diagnosis Date - Asthma - Macular cyst, hole, or pseudohole of retina Both eyes - Shingles Previous Surgical History PAST SURGICAL HISTORY Procedure Laterality Date - COLONOSCOPY 07/2007 - DISCISSION,2ND CATARACT,LASER 06/26/12 Yag Capsulotomy OS - nevus 1980 face. - VITRECTOMY FOR MACULAR HOLE 06/06/2011 L eye. - VITRECTOMY,MECHANICAL 02-20-12 [place] Vitrectomy ,MP, PCIOL OD Family History FAMILY HISTORY Problem Relation Age of Onset - Heart Father - Lipids Father High Cholesterol - osteopenia [Other] [OTHER] Mother Osteopenia - Cataract Mother - Macular Degeneration [Other] [OTHER] Maternal Grandfather Patient Allergies ALLERGIES Allergen Reactions - Cephalosporins Rash - Codeine GI Upset - Dust - Ragweed - Howie [Other] Current Medications Current Outpatient Prescriptions on File Prior to Visit: etodolac (LODINE) 400 mg tablet Take 1 tablet by mouth twice daily. Cholecalciferol, Vitamin D3, 2,000 unit cap Take 1 tablet by mouth once daily. fluticasone (FLONASE) 50 mcg/actuation nasal spray Use 1 [place] in each nostril once daily. FOR ALLERGIC NASAL SX. albuterol HFA (VENTOLIN HFA) 90 mcg/actuation inhaler Inhale 2 Puffs as instructed every 4 hours as needed. Mkiu-Pqbc-OIZ#0-V-Qizp-Trevon-Bor (OSTEO BI-FLEX) 750-625-30 mg Tab Take 1 tablet by mouth twice daily. dextran 70/hypromellose(ARTIFICIAL TEARS EYE DROPS) as necessary omega-3 fatty acids(FISH OIL 500 MG CAP) Take two(2) capsule daily. MULTIVITAMIN TAB Take one(1) tablet daily. No current facility-administered medications on file prior to visit. 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 Has her house to take care of Exercise. Stationary bike 5 miles few times a week/ Can't swim, walking bothers her knees. ROS: General: Feels well, no weight changes, fever, chills. HEENT: No sinus congestion, earache, sore throat. Cardiac: No chest pain, palpitations, shortness of breath Resp: No cough, wheeze. GI: mikldo reflux symptoms, food intolerance, bowel changes. : No urinary frequency, dysuria. MS: No pain or joint complaints. PHYSICAL EXAMINATION BP 120/80 Pulse 78 Resp 16 Ht 154.9 cm (5' 1ANDquot;) Wt 61.7 kg (136 lb) BMI 25.7 kg/m2 General: Alert and oriented, no distress, pleasant and cooperative. Ears normal. Throat and pharynx normal. Neck supple. No adenopathy or masses in the neck or supraclavicular regions. Sinuses non tender. Clear post nasal drainage.e Heart: Regular, normal S1 and S2, no murmurs, rubs, or gallops Lungs: Clear to auscultation bilaterally Abdomen: Benign Extremities: Feet/ankles without edema, posterior tibial pulses full and symmetrical No rashes or suspicious skin lesions noted. Health Maintenance List MAMMOGRAM due on 07/25/2018 PNEUMOVAX AGE 65 AND OVER WITH 5YR LOOKBACK(1) due on 08/03/2018 TETANUS due on 06/23/2020 DIABETES SCREEN due on 09/13/2020 LIPID SCREEN due on 09/06/2021 COLORECTAL CANCER SCREENING,SEE MODIFIER due on 01/04/2027 BONE DENSITY Completed ADULT PREVNAR-13 Completed INFLUENZA Completed HEPATITIS C SCREENING Completed Data reviewed Assessment/Plan: Lab Results Component Value Date/Time CHOL 211 (H) 09/06/2016 09:35 AM HDL 66 09/06/2016 09:35 AM LDL 116 09/06/2016 09:35 AM Signed Prescriptions Disp Refills albuterol HFA (VENTOLIN HFA) 90 mcg/actuation inhaler 1 Inhaler 5 Sig: Inhale 2 Puffs as instructed every 4 hours as needed. LIV: No fluticasone (FLONASE) 50 mcg/actuation nasal spray 1 Bottle 5 Sig: Use 1 [place] in each nostril once daily. FOR ALLERGIC NASAL SX. LIV: No etodolac (LODINE) 400 mg tablet 180 tablet 3 Sig: Take 1 tablet by mouth twice daily. LIV: No Cholecalciferol, Vitamin D3, 2,000 unit cap 90 capsule 3 Sig: Take 1 capsule by mouth once daily. LIV: No RTO: annual MD Inessa Magana MD 09/20/2017 8:41 AM Signed Consider ocean nasal spray for dry nasal membranes. Referring Provider: SELF [[id number]] Allergies As of Date: 09/20/2017 Noted Allergy Reaction CEPHALOSPORINS 01/19/2008 2 - Rash CODEINE 01/10/2007 8 - GI Upset DUST 01/13/2007 RAGWEED 01/13/2007 Howie [Other] 01/13/2007 Date Reviewed: 09/20/2017 Reviewed by: Phoebe Cao Ma - Fully Assessed Reason for Visit: Physical [83] Primary Visit Diagnosis:Primary osteoarthritis of left knee [M17.12] Other Visit Diagnoses:Mild intermittent asthma without complication [J45.20] Borderline osteopenia [M85.80] Post-nasal drainage [R09.82] Encounter for long-term (current) use of medications [Z79.899] Order(s):albuterol HFA (VENTOLIN HFA) 90 mcg/actuation inhalerInhale 2 Puffs as instructed every 4 hours as needed.Disp: 1 InhalerRfl: 5 fluticasone (FLONASE) 50 mcg/actuation nasal sprayUse 1 [place] in each nostril once daily. FOR ALLERGIC NASAL SX.Disp: 1 BottleRfl: 5 etodolac (LODINE) 400 mg tabletTake 1 tablet by mouth twice daily.Disp: 180 tabletRfl: 3 Cholecalciferol, Vitamin D3, 2,000 unit capTake 1 capsule by mouth once daily.Disp: 90 capsuleRfl: 3 Prescriptions as of 09/20/2017 Sig: ALBUTEROL SULFATE HFA 90 MCG/* Inhale 2 Puffs as instructed * FLUTICASONE 50 MCG/ACTUATION * Use 1 [place] in each nostril o* ETODOLAC 400 MG TABLET Take 1 tablet by mouth twice * CHOLECALCIFEROL (VITAMIN D3) * Take 1 capsule by mouth once * * GLUCOSAMINE 750 MG-CHONDROITN* Take 1 tablet by mouth twice * * ARTIFICIAL TEARS (DEXTRAN 70-* as necessary * FISH OIL 500 MG CAPSULE Take two(2) capsule daily. * MULTIVITAMIN TABLET Take one(1) tablet daily. Problem List As Of Date 09/20/2017 Noted Resolved Solar Lentigines [L81.4] INVALID FOR*06/22/2014 Seborrheic Keratosis [L82.1] INVALID FOR*06/22/2014 Nobles Angiomas [D18.01] INVALID FOR*06/22/2014 Cutaneous skin tags [L91.8] INVALID FOR*06/22/2014 Bilateral pseudophakia [Z96.1] INVALID FOR*09/20/2017 Pain in joint, lower leg [M25.569] INVALID FOR*09/20/2017 PCO (posterior capsular opacification), left [H*INVALID FOR*09/20/2017 After-cataract, obscuring vision [H26.499] INVALID FOR*09/20/2017 Postmenopausal atrophic vaginitis [N95.2] INVALID FOR* Primary osteoarthritis of left knee [M17.12] INVALID FOR* Mild intermittent asthma without complication [*INVALID FOR* Anal or rectal pain [K62.89] INVALID FOR*09/20/2017 Other instructions from your clinician: Consider ocean nasal spray for dry nasal membranes. Prescriptions ordered this encounter Disp Refills Start End ALBUTEROL SULFATE HFA 90 MCG/ACTUATI* 1 In* 5 09/20/2017 Route: INHALATION Sig: Inhale 2 Puffs as instructed every 4 hours as needed. FLUTICASONE 50 MCG/ACTUATION NASAL S* 1 Sukhi* 5 09/20/2017 Route: EACH NOSTRIL Sig: Use 1 [place] in each nostril once daily. FOR ALLERGIC NASAL SX. ETODOLAC 400 MG TABLET 180 * 3 09/20/2017 Route: ORAL Sig: Take 1 tablet by mouth twice daily. CHOLECALCIFEROL (VITAMIN D3) 2,000 U* 90 c* 3 09/20/2017 Route: ORAL Sig: Take 1 capsule by mouth once daily. Medications Discontinued During This Encounter albuterol HFA (VENTOLIN HFA) 90 mcg/* 1 In* 5 08/09/2015 09/20/2017 Route: INHALATION Sig: Inhale 2 Puffs as instructed every 4 hours as needed. Disc: Reason for discontinue is not on file. fluticasone (FLONASE) 50 mcg/actuati* 1 Sukhi* 5 09/11/2016 09/20/2017 Route: EACH NOSTRIL Sig: Use 1 [place] in each nostril once daily. FOR ALLERGIC NASAL SX. Disc: Reason for discontinue is not on file. etodolac (LODINE) 400 mg tablet 180 * 3 09/11/2016 09/20/2017 Route: ORAL Sig: Take 1 tablet by mouth twice daily. Disc: Reason for discontinue is not on file. Cholecalciferol, Vitamin D3, 2,000 u* 90 c* 3 09/11/2016 09/20/2017 Route: ORAL Sig: Take 1 tablet by mouth once daily. Disc: Reason for discontinue is not on file. Encounter Status:Closed by FOREIGN LOVE MD on 09/20/17 ALLERGIES ALLERGIES DATE TYPE / CODE NAME / CODE REACTION SEVERITY SOURCE DRUG DOXYCYCLINE INTOLERANCE [place] INGREDI/[id number] HYCLATE [facility] (SNOMED CT) [place] Repository Drug CEPHALOSPORINS RASH [place] Class/[id number](S [facility] NOMED CT) [place] Repository Environ/[id number] DUST [place] [address] (SNOMED CT) [facility] [place] Repository Environ/[id number] RAGWEED [place] [address] (SNOMED CT) [facility] [place] Repository Miscellaneous OTHER [place] Allergy/[id number] [facility] (SNOMED CT) [place] Repository DRUG CODEINE GI UPSET [place] INGREDI/[id number] [facility] (SNOMED CT) [place] Repository ENCOUNTERS ENCOUNTERS ADMIT/DISCHARGE ACCOUNT ADMITTING ENCOUNTER LOCATION SOURCE NUMBER CLASS 09/15/2018/09/15/[id number] Repository 09/15/2018/09/15/[id number] Repository 09/15/2018 [id number] Ambulatory [facility] [place] Repository 09/05/2018/09/05/20 [id number] Ambulatory [facility] [place] Repository 09/05/2018/09/10/20 [id number] Ambulatory [facility] [place] Repository 09/05/2018 [id number] Ambulatory [facility] [place] Repository 09/05/2018/09/05/20 [id number] Ambulatory [facility] [place] Repository 09/05/2018/09/09/20 [id number] Ambulatory [facility] [place] Repository 09/05/2018/09/08/20 [id number] Ambulatory [facility] [place] Repository 09/05/2018/09/05/20 [id number] Ambulatory [facility] [place] Repository 09/05/2018/09/05/20 [id number] Ambulatory [facility] [place] Repository 08/29/2018/09/01/20 [id number] Ambulatory [facility] [place] Repository 08/29/2018/09/01/20 [id number] Ambulatory [facility] [place] Repository 08/26/2018 [id number] Ambulatory [facility] ing:[facility] Repository 08/26/2018/08/27/20 [id number] Ambulatory [facility] [place] Repository 08/12/2018/08/12/20 [id number] Ambulatory [facility] [place] Repository 08/12/2018/08/12/20 [id number] Ambulatory [facility] [place] Repository 07/28/2018/07/28/20 [id number] Ambulatory [facility] [place] Repository 07/28/2018/07/28/20 [id number] Ambulatory [facility] [place] Repository 06/26/2018/07/02/20 [id number] Ambulatory [facility] [place] Repository 04/25/2018/04/28/20 [id number] Ambulatory [facility] [place] Repository 04/08/2018/04/08/20 [id number] Ambulatory [facility] [place] Repository 04/01/2018/04/03/20 [id number] Ambulatory [facility] [place] Repository 12/19/2017/12/20/19 [id number] Ambulatory [facility] [place] Repository 11/01/2017/11/01/19 [id number] Ambulatory [address] Repository 11/01/2017/11/01/19 [id number] Ambulatory [address] Repository 10/23/2017/10/23/19 [id number] Ambulatory [address] Repository 09/20/2017/09/20/20 [id number] Ambulatory [address] Repository PAYERS PAYERS ENCOUNTER GUARANTOR PAYER SUBSCRIBER SOURCE 08/26/2018 CARLOS ALBERTO Cronin Primary NOT GIVENMANNY [id number] Insurance:SELF PAY [place], [place] Number: Effective Repository [id number]: 330 Date:2018-08-26 [phone] ()
== END ==
PROVIDERS: Family Provider Internal Medicine; PCP Internal Medicine; Referring Provider Surgery; Visit Provider Surgery
DX: R92.8 Other abnormal and inconclusive findings on diagnostic imaging of breast (principal)
CPT/HCPCS: 88305; 88341; 88342

== ENCOUNTER → 2019-06-22 | Outpatient (CLI) | payer MEDICARE, OTHER, SELFPAY | END | disposition home or self-care (01) | LOC: PSN 13:56 | PROVIDERS: Family Provider Family Medicine; PCP Family Medicine; Referring Provider Family Medicine; Visit Provider Family Medicine | DX: R00.1 Bradycardia, unspecified (principal); I49.3 Ventricular premature depolarization | CPT/HCPCS: 93225; 93226 ==

== ENCOUNTER → 2019-08-06 | Outpatient (CLI) | payer MEDICARE, OTHER, SELFPAY ==
--- NOTE | 2019-08-11 17:02 | STRESSREP_ITS ---
Stress Test Report Date: 08/06/2019 Procedure: Exercise tolerance test Indications: PVC Consent: Per the patient Procedure: The patient exercised on a Thomas protocol for 6 minutes achieving a peak heart rate of 151 bpm (98 % predicted maximal heart rate) with a peak blood pressure 150/82 mmHg and a peak MET capacity of approximately 7 mET's. The baseline ECG demonstrated normal sinus rhythm. The peak exercise ECG demonstrated about [address] depression in lead III and aVF and about [address] depression in leads II, V4, V5, V6. [There were no cardiac dysrhythmias pretest, during exercise, or recovery]. The functional capacity was considered normal for age. The patient had no complaint of chest discomfort during exercise or recovery. The examination was discontinued secondary to the pain. Impression: 1. Technically adequate (percent predicted maximal heart rate greater than 85%) exercise tolerance test 2. Stress test is negative for exercise-induced chest pain. 3. Stress test test positive for exercise-induced EKG changes of ischemia. 4. Functional capacity is normal for age This note was generated with [employer] software. It may contain incorrect words, spelling, and punctuation that were not noted in checking the note before signing.
== END | disposition home or self-care (01) ==
LOC: CVS 10:45
PROVIDERS: Family Provider Family Medicine; PCP Family Medicine; Referring Provider Family Medicine; Visit Provider Family Medicine
DX: I51.89 Other ill-defined heart diseases (principal); I49.3 Ventricular premature depolarization; I49.9 Cardiac arrhythmia, unspecified
CPT/HCPCS: 93017

== ENCOUNTER 2024-06-10 09:22 | Emergency (ER) | payer MEDICARE, OTHER, SELFPAY ==
[2024-06-10 09:23] VITALS: BP 157/85; PULSE 78; RESP 16; TEMP 35.9; O2SAT 99; BMI 25.9
--- NOTE | 2024-06-10 09:47 | EKG12_ITS ---
Test Reason : BACK PAIN Blood Pressure : / mmHG Vent. Rate : 075 BPM Atrial Rate : 075 BPM P-R Int : 124 ms QRS Dur : 094 ms QT Int : 400 ms P-R-T Axes : 050 027 006 degrees QTc Int : 446 ms Normal sinus rhythm Possible Inferior infarct , age undetermined Abnormal ECG Confirmed by MARY ANTHONY, DASH ([id number]), editor department ALIREZA ABRAHAM ([id number]) on 06/12/2024 7:56:23 AM Referred By: Confirmed By:DASH HERNANDEZ MD
[2024-06-10 09:56] LABS: Absolute Lymphocyte Count 1.09 X10^3/uL (0.83-4.51); Absolute Neutrophil Count 2.8 X10^3/uL (2.0-7.7); Basophil# 0.02 X10^3/uL; Basophil% 0.5 % (0-1); Eosinophil# 0.13 X10^3/uL; Eosinophils% 3.1 % (0-5); Hematocrit 44.6 % (37-47); Lymphocyte # 1.09 X10^3/ul (0.83-4.51); Lymphocyte % 25.7 % (19-41); Mean Corp Hgb Conc 33.6 g/dL (32-36); Mean Corpuscular Hgb 33.6 pg (27.0-32.0); Mean Corpuscular Volume 99.8 fL (81-99); Mean Platelet Vol. 10.5 fl (6.2-12.0); Monocyte# 0.24 X10^3/uL; Monocyte% 5.7 % (0-10); NRBC Flagged by Analyzer 0 % (0-5); Neutrophil # 2.75 X10^3/uL (2.7-7.7); Neutrophil % 64.8 % (47-70); Platelet Count 169 K/mm3 (150-450); RBC Distribution Width CV 11.6 % (11.6-14.6); RBC Distribution Width SD 42.6 fl (35.1-43.9); Red Blood Count 4.47 M/mm3 (4.2-5.4); White Blood Count 4.2 K/mm3 (4.4-11.0)
[2024-06-10 10:00] VITALS: BP 151/85; BP 162/75; BP 170/82; PULSE 73; PULSE 74; PULSE 85
[2024-06-10 10:35] LABS: ALB/GLOB Ratio 1.1 RATIO (0.9-2.4); AST(SGOT) 19 U/L (15-37); Alanine Aminotransfer ALT/SGPT 27 U/L (13-56); Albumin, Serum 3.9 g/dL (3.2-5.0); Alkaline Phosphatase 88 U/L (45-117); Anion Gap 5 (5-15); BUN 13 mg/dL (7-18); BUN/Creat Ratio 14.8 RATIO (10-20); Calcium,Total 9.7 mg/dL (8.5-10.1); Chloride 105 mmol/L (98-107); Creatinine, Serum 0.88 mg/dL (0.55-1.02); EST Glomerular Filtration Rate 67 mL/min (>60); Est Glom Filt Rate - Afr Amer 81 mL/min (>60); Estimated Creatinine Clearance 52.95 ml/min; Globulin 3.4 g/dL (2.2-4.2); Glucose 113 mg/dL (74-106); Lipase 63 U/L (13-75); Potassium 3.8 mmol/L (3.5-5.1); Protein, Total 7.3 g/dL (6.4-8.2); Sodium Level 138 mmol/L (136-145)
--- NOTE | 2024-06-10 10:46 | EDS_ITS ---
HPI History of Present Illness Chief Complaint: Dizziness Detail of Chief Complaint: Multiple symptoms including dizziness, which patient defines as lightheaded Informant: patient and spouse/S.O. Onset/Context/Timing Onset: - (Varies depending on symptom. Detailed HPI narrative) Context: Sudden Onset Timing: Continuous Quality: Numbness right hand, intrascapular discomfort and numbness both legs and fe Location: Varies Current Severity: Mild Maximum Severity: Moderate Worsened by: Nothing Relieved by: nothing Associated Symptoms Associated Symptoms: Frontal head discomfort as well with no visual, ocular auditory symptoms Narrative Narrative: Patient is a 74-year-old woman with history of breast cancer. She states she has had intermittent numbness tingling of her right hand. The numbness tingling started a day or 2 after she scrubbed the garage doors and garage floor. She has no history of carpal tunnel syndrome. She denies numbness in the distribution of the median nerve. It involves her entire hand and digits. She also reports intrascapular discomfort. She denies nausea, vomit or diarrhea. She denies intolerance to greasy or fried foods. There is no history of liver or biliary disease. She also has numbness tingling right side of chest which she has had intermittently since she had chemotherapy 3 years ago. Nothing makes the head discomfort better or worse. She denies rhinorrhea, congestion postnasal drainage sore throat. She denies double vision, blurred vision loss of vision. She denies ringing or ears or decreased hearing. She denies neck pain or neck stiffness. She does have a slight cough. Cough is nonproductive. She presently has no chest discomfort. She denies abdominal pain, nausea, vomit or diarrhea. She denies dysuria, frequency, urgency or hematuria. She denies history of renal ureterolithiasis. She denies black or maroon-colored stool. She denies diarrhea. Plus minus increased thirst. She specifically denies the room spinning or her spinning. Prior similar symptoms: Yes (Per HPI narrative) Recent Illness/Hospitalization: No [facility] Medical History (Updated 06/10/24 @ 11:[address] Jose Johnson MD) Breast cancer High cholesterol Home Medications ?Medication ?Instructions ?Recorded ?Last Taken ?Type etodolac 400 mg tablet 400 mg PO Q12H 06/10/24 Unknown History gabapentin 300 mg capsule 300 mg PO DAILY 06/10/24 Unknown History rosuvastatin 10 mg tablet 10 mg PO QHS 06/10/24 Unknown History Allergy/AdvReac Type Severity Reaction Status Date / Time Cephalosporins Allergy Intermediate Rash Verified 06/10/24 09:27 nortriptyline Allergy Intermediate NEEDS Verified 06/10/24 09:27 FOLLOW-UP phenazopyridine (From Allergy Intermediate NEEDS Verified 06/10/24 09:27 Pyridium) FOLLOW-UP codeine AdvReac Intermediate Nausea Verified 06/10/24 09:27 house dust AdvReac Intermediate Itching Verified 06/10/24 09:27 doxycycline AdvReac Mild Nausea Verified 06/10/24 09:27 Social History (Updated 06/10/24 @ 10:[address] Jose Johnson MD) household members: spouse Smoking Status: Unknown if ever smoked ROS ROS ED Constitutional Constitutional ED: Denies chills, fever(s), subjective or sweats Eyes Eyes: Denies blurry vision, change in vision or diplopia ENT ENT ED: Denies ear pain or sore throat Cardiovascular Cardiovascular: Denies chest pain, orthopnea, palpitations, paroxysmal nocturnal dyspnea or racing heartbeat Respiratory/Chest Respiratory/Chest: Reports cough; Denies dyspnea, dyspnea on exertion, orthopnea, paroxysmal nocturnal dyspnea or sputum Gastrointestinal Gastrointestinal: Denies abdominal pain, constipation, diarrhea, melena or vomiting Genitourinary Genitourinary ED: Denies dysuria, hematuria or urinary frequency Musculoskeletal Musculoskeletal: Reports back pain; Denies arthralgias, myalgias or neck pain Integumentary Denies abscess or rash Neurologic Neurologic: Reports headache(s) and paresthesias RUE, RLE and LLE Psychiatric Psychiatric: Denies anxiety or depression Endocrine Endocrinology: Denies cold intolerance or heat intolerance Hematologic/Lymphatic Hematologic/Lymphatic: Reports systems reviewed and no addt'l complaints, except as documented EXAM Physical Exam Const Vital Signs: 06/10/24 09:23 06/10/24 10:00 Temperature 96.7 F L Temperature Source Temporal Pulse Rate 78 Pulse Rate [Lying] 73 Pulse Rate [Sitting (for 1 minute prior to obtaining)] 74 Pulse Rate [Standing (for 1 minute prior to obtaining)] 85 Respiratory Rate 16 Blood Pressure 157/85 H Blood Pressure [Lying] 162/75 H Blood Pressure [Sitting (for 1 minute prior to obtaining)] 170/82 H Blood Pressure [Standing (for 1 minute prior to obtaining)] 151/85 H Blood Pressure Mean 109 Blood Pressure Mean [Lying] 104 Blood Pressure Mean [Sitting (for 1 minute prior to obtaining)] 111 Blood Pressure Mean [Standing (for 1 minute prior to obtaining)] 107 Pulse Ox 99 Oxygen Delivery Method Room Air Positive well nourished and well developed Constitutional Narrative: Pleasant elderly woman appears in no distress. Vital signs are marked for an elevated blood pressure. Orthostatic vital signs were negative. General Appearance ED: well developed and NAD; Negative for pallor HEENT Reports TM's clear and moist mucous membranes Negative for trauma or tenderness Tympanic Membrane ED: Yes TM's clear Eyes PERRL and EOMs intact bilaterally General Eye ED: Negative for pale conjunctiva or scleral icterus Neck no lymphadenopathy, supple and no JVD Chest Wall inspection of chest normal and palpation of chest normal Resp normal respiratory effort and clear to auscultation bilaterally Effort and Inspection: Negative for pain with movement Cardio regular rate, regular rhythm, S1 normal heart sound, S2 normal heart sound and no murmurs GI normal to inspection, nondistended, normoactive bowel sounds, non-tender, non- distended and no masses; Negative for hepatosplenomegaly GI Narrative: There is no palpable pulsatile mass. There is no abdominal bruit. Palpation: soft Back/Spine no CVA tenderness Extremity normal to inspection Extremity Narrative: Negative Tinel's sign and Phalen sign on the right. Axillary, median, radial and ulnar function intact. Bicep and brachialis and tricep reflex are 1+ and symmetric. General Extremety ED: Negative for edema or tenderness General Extremity: Negative for edema Neuro oriented x3, CN's II-XII intact bilaterally and no sensory deficits noted Sensorium / Orientation: alert Motor Exam: strength 5/5 throughout Psych mental status grossly normal Skin no rashes or lesions noted, no wounds and skin turgor normal General Skin Exam: elasticity normal; Negative for jaundice or pallor MDM MDM MDM Narrative Medical decision making narrative: Differential diagnosis may be neuropathic pain due to her radiation therapy since she is on gabapentin. History and physical is not consistent with carpal tunnel syndrome. This may represent a viral illness. Since she is orthostatic we will have nurse perform orthostatic vital signs. Because of her history of cancer will obtain CBC to assess white count H&H and electrolytes and specifically evaluate for hyponatremia hypokalemia. History & Record Review Additional record(s) reviewed:: Prior outpatient record (Outpatient records from 2018 were reviewed. This is due to diagnostic imaging of the breast.) and Prior labs (There are no prior labs for comparison.) Lab Data Attestation: I reviewed the patient's lab results. Lab results narrative: Patient is neutropenic. Her CBC otherwise is normal. Comprehensive metabolic panel is unremarkable other than slight elevation of glucose of 113 with a normal CO2 anion gap.. Lipase is normal. Labs: Laboratory Results - last 24 hr 06/10/24 09:50 WBC 4.2 L RBC 4.47 Hgb 15.0 Hct 44.6 MCV 99.8 H MCH 33.6 H MCHC 33.6 RDW Std Deviation 42.6 RDW Coeff of Kavon 11.6 Plt Count 169 MPV 10.5 Immature Gran % (Auto) 0.200 Neut % (Auto) 64.8 Lymph % (Auto) 25.7 [place] % (Auto) 5.7 Eos % (Auto) 3.1 Baso % (Auto) 0.5 Absolute Neuts (auto) 2.8 Absolute Lymphs (auto) 1.09 Nucleated RBC % 0 Sodium 138 Potassium 3.8 Chloride 105 Carbon Dioxide 28.0 Anion Gap 5 BUN 13 Creatinine 0.88 Estim Creat Clear Calc 52.95 Est GFR (MDRD) Af Amer 81 Est GFR (MDRD) Non-Af 67 BUN/Creatinine Ratio 14.8 Glucose 113 H Calcium 9.7 Total Bilirubin 0.90 AST 19 ALT 27 Alkaline Phosphatase 88 Total Protein 7.3 Albumin 3.9 Globulin 3.4 Albumin/Globulin Ratio 1.1 Lipase 63 EKG Initial EKG: Attestation: I personally reviewed and interpreted this EKG as follows: Interpretation: Sinus Rhythm (Rate is 75. There is no acute ischemic changes noted. [place] interval 224 ms per cures duration 94 ms. QT duration 400 ms. [place] is normal.) Treatment and Re-Evaluation :: Patient and were informed of results. Patient be discharged to home. Patient states she has had all the symptoms but they have never occurred altogether. Discharge Plan Triage Chief Complaint: Dizziness ED Provider: Jose Johnson Dx/Rx/DC Orders Clinical Impression: Neutropenia, Elevated blood-pressure reading without diagnosis of hypertension, Paresthesias in right hand, Paresthesia of both legs, Forehead pain Instructions: Neutropenia, ED Hypertension, To Be Confirmed Prescriptions: No Action gabapentin 300 mg capsule 300 mg PO DAILY etodolac 400 mg tablet 400 mg PO Q12H rosuvastatin 10 mg tablet 10 mg PO QHS Primary Care Provider: Abhishek Benavides Referrals: Abhishek Benavides MD [Primary Care Provider] - 1-2 Weeks Print Language: Indonesian Disposition Disposition: Home, Self Care
[2024-06-10 11:17] VITALS: BP 152/75; PULSE 59; RESP 14; TEMP 36.2; O2SAT 96
== END 2024-06-10 11:21 | disposition home or self-care (01) ==
PROVIDERS: Emergency Provider Emergency Medicine; PCP Family Medicine; Visit Provider Emergency Medicine
DX: D70.9 Neutropenia, unspecified (principal); R20.2 Paresthesia of skin; R42 Dizziness and giddiness; R03.0 Elevated blood-pressure reading, without diagnosis of hypertension; E78.00 Pure hypercholesterolemia, unspecified; R51.9 Headache, unspecified; Z79.899 Other long term (current) drug therapy; Z92.3 Personal history of irradiation; Z85.3 Personal history of malignant neoplasm of breast; R20.0 Anesthesia of skin; Z92.21 Personal history of antineoplastic chemotherapy
CPT/HCPCS: 80053; 83690; 85025; 93005; 99284; A4216

== ENCOUNTER 2024-12-21 23:22 | Emergency (ER) | payer MEDICARE, OTHER, SELFPAY ==
[2024-12-21 23:22] VITALS: BP 151/76; PULSE 85; RESP 14; TEMP 36.7; O2SAT 98; BMI 26.2
--- NOTE | 2024-12-21 23:38 | EX.ED.DYSGE1 ---
HPI History of Present Illness Chief Complaint: Complaint Informant: patient Onset/Context/Timing Onset: Today Context: Sudden Onset Timing: Continuous Quality: Red bloody Location: Urine Worsened by: Nothing Relieved by: Nothing Narrative Narrative: Patient presents with episode of hematuria that began tonight. Patient states she went to the bathroom and noted blood and possibly some clots after she urinated. Patient denies any pain. Patient denies any fevers or chills. Patient denies any nausea or vomiting. Patient states that the episode. Patient does not take any anticoagulants. Patient denies any dysuria. Patient denies any urinary frequency. Patient denies any back or flank pain. [facility] Medical History (Updated 12/22/24 @ 00:[address] Srinivasa Cruz, DO) Breast cancer High cholesterol Home Medications ?Medication ?Instructions ?Recorded ?Last Taken ?Type etodolac 400 mg tablet 400 mg PO Q12H 06/10/24 Unknown History gabapentin 300 mg capsule 300 mg PO DAILY 06/10/24 Unknown History rosuvastatin 10 mg tablet 10 mg PO QHS 06/10/24 Unknown History Allergy/AdvReac Type Severity Reaction Status Date / Time Cephalosporins Allergy Intermediate Rash Verified 12/21/24 23:24 codeine AdvReac Intermediate Nausea Verified 12/21/24 23:24 house dust AdvReac Intermediate Itching Verified 12/21/24 23:24 nortriptyline AdvReac Intermediate Other Verified 12/21/24 23:24 phenazopyridine (From AdvReac Intermediate Other Verified 12/21/24 23:24 Pyridium) doxycycline AdvReac Mild Nausea Verified 12/21/24 23:24 Surgical History Hx of vitrectomy Hx of partial mastectomy Social History household members: spouse Smoking Status: Never smoker ROS ROS ED Constitutional Constitutional ED: Denies chills or fever(s) Eyes Eyes: Denies blurry vision or change in vision ENT ENT ED: Denies rhinorrhea or sore throat Cardiovascular Cardiovascular: Denies chest pain or palpitations Respiratory/Chest Respiratory/Chest: Denies cough or dyspnea Gastrointestinal Gastrointestinal: Denies nausea or vomiting Genitourinary Genitourinary ED: Reports hematuria; Denies dysuria Musculoskeletal Musculoskeletal: Denies back pain or neck pain Integumentary Denies abscess or rash Neurologic Neurologic: Denies headache(s) or weakness Allergic/Immunologic Allergic/Immunologic ED: Denies mouth swelling or urticaria EXAM Physical Exam Const Vital Signs: 12/21/24 23:22 Temperature 98.1 F Temperature Source Oral Pulse Rate 85 Respiratory Rate 14 Blood Pressure 151/76 H Blood Pressure Mean 101 Pulse Ox 98 Oxygen Delivery Method Room Air Positive well nourished and well developed General Appearance ED: well developed and NAD HEENT Reports moist mucous membranes Neck supple and no JVD Resp normal respiratory effort and clear to auscultation bilaterally GI non-tender and non-distended Palpation: soft Back/Spine no CVA tenderness Extremity normal to inspection General Extremety ED: Negative for edema or tenderness General Extremity: Negative for edema Neuro oriented x3, CN's II-XII intact bilaterally and no sensory deficits noted Sensorium / Orientation: alert Motor Exam: strength 5/5 throughout Psych mental status grossly normal MDM MDM MDM Narrative Medical decision making narrative: Differential diagnosis includes hemorrhagic cystitis, ureteral calculus, bladder mass, renal mass, coagulopathy, and electrolyte abnormality. CBC will be obtained to assess for leukocytosis and anemia. Basic metabolic profile will be obtained to assess for renal function and electrolyte abnormality. Urinalysis will be obtained to assess for urinary tract infection and hematuria. CT scan of the abdomen and pelvis will be obtained to assess for ureteral calculus, bladder mass, and renal mass. PT with INR and PTT will be obtained to assess for coagulopathy. Lab Data Attestation: I reviewed the patient's lab results. Lab results narrative: CBC was reviewed and was within normal limits. Basic metabolic profile was reviewed and was within normal limits. PT with INR and PTT were reviewed and were within normal limits. Urinalysis was reviewed. Occult blood was 250 with greater than 100 red blood cells. Leukocyte esterase was 100. There are 0-5 white blood cells. Labs: Laboratory Results - last 24 hr 12/21/24 12/21/24 23:50 23:55 WBC 6.1 RBC 4.13 L Hgb 13.9 Hct 41.3 MCV 100.0 H MCH 33.7 H MCHC 33.7 RDW Std Deviation 43.8 RDW Coeff of Kavon 12.0 Plt Count 189 MPV 11.2 Immature Gran % (Auto) 1.300 H Neut % (Auto) 49.1 Lymph % (Auto) 36.6 [place] % (Auto) 9.0 Eos % (Auto) 3.3 Baso % (Auto) 0.7 Absolute Neuts (auto) 3.0 Absolute Lymphs (auto) 2.23 Nucleated RBC % 0 PT 13.6 INR 1.0 APTT 31.5 Sodium 142 Potassium 3.9 Chloride 104 Carbon Dioxide 25.8 Anion Gap 12 BUN 18 Creatinine 0.80 Estim Creat Clear Calc 58.46 Est GFR (MDRD) Non-Af 78 BUN/Creatinine Ratio 22.9 H Glucose 109 H Calcium 9.9 Urine Color Red Urine Clarity Turbid Urine pH 8.0 Ur Specific [place] 1.015 Urine Protein 100 H Urine Glucose (UA) Normal Urine Ketones Negative Urine Occult Blood 250 H Urine Nitrite Negative Urine Bilirubin 1 H Urine Urobilinogen Normal Ur Leukocyte Esterase 100 H Urine RBC > 100 SEEN Urine WBC 0-5 SEEN Ur Squamous Epith Cells 0 SEEN Urine Bacteria 1+ Urine Mucus 0 SEEN Radiography Diagnostic Testing: Clinical Impression(s) from Imaging Studies Abdomen/Pelvis CT 12/22/24 23:45 IMPRESSION: Around 1.8 cm high density focus left side of the bladder adjacent to the area of the ureterovesical junction axial 153, sagittal 78 and coronal 58 may represent blood products, hemorrhage, blood clot with possibility of bladder lesion not excluded. Recommend urology consult and further workup. Reading Location: [facility] CT scan of the abdomen and pelvis was obtained. There is a 1.8 cm high density focus on the left side of the bladder adjacent to the area of the ureterovesicular junction. This may represent blood products, hemorrhage, blood clot, or bladder lesion. This was interpreted by the radiologist and was also independently reviewed by myself. Treatment and Re-Evaluation :: Patient was advised of her findings. Patient was advised of the need for urology follow-up. Patient was given referral for urology. Patient was instructed to call tomorrow to schedule an appointment. Patient was instructed to return if worse in any way. Patient understood and was agreeable with the plan. All questions were answered. Discharge Plan Triage Chief Complaint: Complaint ED Provider: Srinivasa Cruz Dx/Rx/DC Orders Clinical Impression: Hematuria, Elevated blood pressure reading Instructions: ED Hematuria Prescriptions: No Action gabapentin 300 mg capsule 300 mg PO DAILY etodolac 400 mg tablet 400 mg PO Q12H rosuvastatin 10 mg tablet 10 mg PO QHS Primary Care Provider: Abhishek Benavides Referrals: Dee Mondragon MD [Med Staff - Active Staff] - 3-5 Days Rojas Harris MD [Med Staff - Active Staff] - 3-5 Days Abhishek Benavides MD [Primary Care Provider] - 5-7 Days Print Language: Guatemalan Disposition Disposition: Home, Self Care
[2024-12-22 00:01] LABS: Mucous, Urine 0 SEEN /hpf (<or=2+); Squamous Epithelial Cells - UA 0 SEEN /hpf (5-10)
[2024-12-22 00:03] LABS: Color, Urine Red (Yellow); Glucose, Dipstick Normal (Normal); Ketone-Dipstick Negative (Negative); Leukocyte Esterase-Dipstick 100 /ul (Negative); Nitrite-Dipstick Negative (Negative); Occult Blood-Urine 250 /ul (Negative); Protein-Dipstick 100 mg/dl (Negative); Specific Gravity, Urine 1.015 (1.002-1.030); Urine Clarity Turbid (Clear); Urine Urobilinogen Normal (Normal)
[2024-12-22 00:07] LABS: Urine Bilirubin Dipstick 1 mg/dL (Negative)
[2024-12-22 00:13] LABS: Absolute Lymphocyte Count 2.23 X10^3/uL (0.83-4.51); Basophil# 0.04 X10^3/uL; Basophil% 0.7 % (0-1); Eosinophils% 3.3 % (0-5); Hematocrit 41.3 % (37-47); Hemoglobin 13.9 g/dL (12.0-15.0); Lymphocyte # 2.23 X10^3/ul (0.83-4.51); Lymphocyte % 36.6 % (19-41); Mean Corp Hgb Conc 33.7 g/dL (32-36); Mean Corpuscular Hgb 33.7 pg (27.0-32.0); Mean Platelet Vol. 11.2 fl (6.2-12.0); Monocyte# 0.55 X10^3/uL; NRBC Flagged by Analyzer 0 % (0-5); Neutrophil % 49.1 % (47-70); Partial Thromboplast Time 31.5 Seconds (24.1-36.2); Platelet Count 189 K/mm3 (150-450); RBC Distribution Width SD 43.8 fl (35.1-43.9); Red Blood Count 4.13 M/mm3 (4.2-5.4); White Blood Count 6.1 K/mm3 (4.4-11.0)
[2024-12-22 00:23] LABS: Prothrombin Time (Protime)PT. 13.6 SECONDS (11.7-14.9)
[2024-12-22 00:23] LABS: Bacteria 1+ /hpf (None Seen); White Blood Cells 0-5 SEEN /hpf (0-5)
[2024-12-22 00:24] LABS: Red Blood Cells-Urine > 100 SEEN /hpf (0-5)
[2024-12-22 00:54] LABS: Anion Gap 12 (5-15); BUN 18 mg/dL (4-19); BUN/Creat Ratio 22.9 RATIO (10-20); Calcium,Total 9.9 mg/dL (7.6-11.0); Carbon Dioxide 25.8 mmol/L (21.0-32.0); Chloride 104 mmol/L (98-108); EST Glomerular Filtration Rate 78 (>60); Estimated Creatinine Clearance 58.46 ml/min (50-250); Glucose 109 mg/dL (70-99); Potassium 3.9 mmol/L (3.3-5.1); Sodium Level 142 mmol/L (133-145)
[2024-12-22 01:22] VITALS: BP 124/78; PULSE 72; RESP 16; TEMP 36.6; O2SAT 97
--- NOTE | 2024-12-22 23:45 | CT_ITS ---
EXAM: CT abdomen and pelvis without contrast CLINICAL HISTORY: Hematuria COMPARISON: None available TECHNIQUE: Noncontrast CT of the abdomen and pelvis with coronal and sagittal reformatted images FINDINGS: Platelike area of atelectasis or scarring at the left lower lobe and adjacent lingula. The liver, gallbladder, adrenal glands, kidneys, pancreas and spleen appear within limits. No renal stones, hydronephrosis or perinephric stranding. No evidence of renal lesion identified on noncontrast imaging. Small hiatal hernia. No bowel dilation or free air. Diverticulosis without diverticulitis. The appendix is not identified, no secondary signs. The uterus and adnexa appear within limits. Around 1.8 cm high density focus left side of the bladder adjacent to the area of the ureterovesical junction axial 153, sagittal 78 and coronal 58 may represent blood products, hemorrhage, blood clot with possibility of bladder lesion not excluded. Recommend urology consult and further workup. The bladder is nondistended without evidence of wall thickening. No calcified bladder stone identified. No ureteral stone identified. No free fluid. Abdominal aorta within limits without aneurysm. No adenopathy identified. The visualized osseous structures appear within limits. CT/Abdomen/Pelvis without Cont IMPRESSION: Around 1.8 cm high density focus left side of the bladder adjacent to the area of the ureterovesical junction axial 153, sagittal 78 and coronal 58 may represent blood products, hemorrhage, blood clot with pos sibility of bladder lesion not excluded. Recommend urology consult and further workup. Reading Location: [id number]
== END 2024-12-22 01:31 | disposition home or self-care (01) ==
PROVIDERS: Emergency Provider Emergency Medicine; PCP Family Medicine; Visit Provider Emergency Medicine
DX: R31.9 Hematuria, unspecified (principal); R03.0 Elevated blood-pressure reading, without diagnosis of hypertension; E78.00 Pure hypercholesterolemia, unspecified
CPT/HCPCS: 74176; 80048; 81001; 85025; 85610; 85730; 99283

== ENCOUNTER → 2024-12-28 | Outpatient (CLI) | payer MEDICARE, OTHER, SELFPAY | END | disposition home or self-care (01) | LOC: LABSPEC 17:35 | PROVIDERS: PCP Family Medicine; Visit Provider Urology | DX: R31.0 Gross hematuria (principal) | CPT/HCPCS: 87086 ==

== ENCOUNTER 2025-09-25 13:42 | Observation (INO) | payer MEDICARE, OTHER, SELFPAY ==
[2025-09-25] VITALS (11 sets, daily range): BP systolic 120–179; BP diastolic 68–94; PULSE 62–82; RESP 12–22; TEMP 36.6–36.8; O2SAT 96–100; BMI 25.0; BMI 24.7
--- NOTE | 2025-09-25 14:31 | RAD_ITS ---
EXAM: XR Chest, 1 View CLINICAL INDICATION: CHEST PAIN TECHNIQUE: Frontal view of the chest. COMPARISON: No relevant prior studies available. FINDINGS: LUNGS AND PLEURAL SPACES: Unremarkable. No consolidation. No pneumothorax. HEART: Unremarkable. No cardiomegaly. MEDIASTINUM: Unremarkable. Normal mediastinal contour. BONES/JOINTS: Unremarkable. No acute fracture.
--- NOTE | 2025-09-25 14:31 | EKG12_ITS ---
Test Reason : Blood Pressure : */* mmHG Vent. Rate : 66 BPM Atrial Rate : 66 BPM P-R Int : 136 ms QRS Dur : 96 ms QT Int : 418 ms P-R-T Axes : 67 57 22 degrees QTcB Int : 438 ms Normal sinus rhythm Normal ECG Confirmed by Antoni Ching ([id number]), writer editor MARILOU BREWSTER ([id number]) on 10/01/2025 7:14:36 AM Referred By: Confirmed By: Antoni Ching
--- NOTE | 2025-09-25 14:31 | EX.ED.DYSGE1 ---
HPI History of Present Illness Chief Complaint: Hypotension Detail of Chief Complaint: Syncopal episode at home. Informant: patient, spouse/S.O. and family Onset/Context/Timing Onset: Today Context: Sudden Onset Timing: Intermittent Current Severity: Gone Maximum Severity: Moderate Narrative Narrative: 75-year-old female history of prior breast cancer bladder cancer is on maintenance chemotherapy bladder infusions. States she has been feeling fine she has not been ill recently. No cardiac history. Around 1245 today she felt lightheaded. took her blood pressure was 65/50 with a heart rate of 62 she sat there she started feeling better he went to get changed and she passed out and he found her on the floor. She was out for probably 20 seconds. He said her eyes were open but she was unresponsive. There was no seizure activity. She denies any injury from the fall. She denies any headache or chest pain. She denies any abdominal pain. No recent illness. She denies any nausea, vomiting or diarrhea. No fever or chills. No dysuria. No melena. She has been eating and drinking well. No cardiac history. History of PVCs otherwise. No prior syncopal episodes. Prior similar symptoms: No Recent Illness/Hospitalization: No PFSH PFSH Medical History Bladder cancer Asthma Breast cancer High cholesterol Home Medications ?Medication ?Instructions ?Recorded ?Last Taken ?Type etodolac 400 mg tablet 400 mg PO Q12H 06/10/24 Unknown History gabapentin 300 mg capsule 300 mg PO DAILY 06/10/24 Unknown History rosuvastatin 10 mg tablet 10 mg PO QHS 06/10/24 Unknown History Allergy/AdvReac Type Severity Reaction Status Date / Time Cephalosporins Allergy Intermediate Rash Verified 09/25/25 13:47 codeine AdvReac Intermediate Nausea Verified 09/25/25 13:47 house dust AdvReac Intermediate Itching Verified 09/25/25 13:47 nortriptyline AdvReac Intermediate Other Verified 09/25/25 13:47 phenazopyridine (From AdvReac Intermediate Other Verified 09/25/25 13:47 Pyridium) doxycycline AdvReac Mild Nausea Verified 09/25/25 13:47 Surgical History Hx of vitrectomy Hx of partial mastectomy Social History household members: spouse Smoking Status: Never smoker ROS ROS ED ROS Narrative Denies recent illness. Constitutional Constitutional ED: Denies chills or fever(s) Eyes Eyes: Denies blurry vision ENT ENT ED: Denies ear pain or rhinorrhea Cardiovascular Cardiovascular: Denies chest pain, palpitations or racing heartbeat Respiratory/Chest Respiratory/Chest: Denies cough or dyspnea Gastrointestinal Gastrointestinal: Denies abdominal pain, diarrhea, melena, nausea or vomiting Genitourinary Genitourinary ED: Denies dysuria or hematuria Musculoskeletal Musculoskeletal: Denies arthralgias Integumentary Denies abscess Neurologic Neurologic: Denies headache(s) Psychiatric Psychiatric: Denies anxiety Endocrine Endocrinology: Denies cold intolerance Hematologic/Lymphatic Hematologic/Lymphatic: Reports none Allergic/Immunologic Allergic/Immunologic ED: Denies mouth swelling, tongue swelling or urticaria EXAM Physical Exam Narrative Exam Narrative: Well-appearing 75-year-old female. Vital signs are stable afebrile. Current blood pressure 135/77. Pulse ox 9 9% on room air no hypoxia. She is in no distress. She does not look septic or toxic. She has her family with her including her . H EENT exam pupils round react to light. Extra motions are intact. Moist mucous membranes. No signs of trauma to her face or scalp. Nontender no hematoma. C-spine and neck nontender no lymphadenopathy. Normal range of motion. Back nontender. Lungs clear to auscultation bilaterally. Heart regular rhythm rate about 63 no murmur. Chest wall and ribs are nontender. Abdomen soft nontender. No peritoneal signs. No pulsatile mass. Moving all 4 extremities. Nontender no deformity. Equal symmetrical radial pulses. 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 Normal dorsi plantarflexion. Calves are nontender without edema or cords. Neurologically she is awake alert. Answering questions following command. Benign exam. Const Vital Signs: 09/25/25 13:43 09/25/25 13:59 09/25/25 14:06 Temperature 98.2 F Temperature Source Oral Pulse Rate 63 62 Pulse Rate [Lying] Pulse Rate [Sitting (for 1 minute prior to obtaining)] Pulse Rate [Standing (for 1 minute prior to obtaining)] Respiratory Rate 16 19 H Respiratory Effort Normal Respiratory Pattern Normal Blood Pressure 135/77 H Blood Pressure [Lying] Blood Pressure [Sitting (for 1 minute prior to obtaining)] Blood Pressure [Standing (for 1 minute prior to obtaining)] Blood Pressure Mean 96 Blood Pressure Mean [Lying] Blood Pressure Mean [Sitting (for 1 minute prior to obtaining)] Blood Pressure Mean [Standing (for 1 minute prior to obtaining)] Pulse Ox 99 100 Oxygen Delivery Method Room Air 09/25/25 14:15 09/25/25 14:30 09/25/25 14:40 Temperature Temperature Source Pulse Rate 66 78 Pulse Rate [Lying] Pulse Rate [Sitting (for 1 minute prior to obtaining)] Pulse Rate [Standing (for 1 minute prior to obtaining)] Respiratory Rate 13 22 H Respiratory Effort Respiratory Pattern Blood Pressure 148/77 H 179/75 H Blood Pressure [Lying] Blood Pressure [Sitting (for 1 minute prior to obtaining)] Blood Pressure [Standing (for 1 minute prior to obtaining)] Blood Pressure Mean 100 96 Blood Pressure Mean [Lying] Blood Pressure Mean [Sitting (for 1 minute prior to obtaining)] Blood Pressure Mean [Standing (for 1 minute prior to obtaining)] Pulse Ox 98 97 Oxygen Delivery Method Room Air Room Air Room Air 09/25/25 14:45 09/25/25 14:45 09/25/25 15:00 Temperature Temperature Source Pulse Rate 73 73 68 Pulse Rate [Lying] Pulse Rate [Sitting (for 1 minute prior to obtaining)] Pulse Rate [Standing (for 1 minute prior to obtaining)] Respiratory Rate 12 12 17 Respiratory Effort Respiratory Pattern Blood Pressure 144/73 H Blood Pressure [Lying] Blood Pressure [Sitting (for 1 minute prior to obtaining)] Blood Pressure [Standing (for 1 minute prior to obtaining)] Blood Pressure Mean 93 Blood Pressure Mean [Lying] Blood Pressure Mean [Sitting (for 1 minute prior to obtaining)] Blood Pressure Mean [Standing (for 1 minute prior to obtaining)] Pulse Ox 99 99 99 Oxygen Delivery Method Room Air 09/25/25 15:10 Temperature Temperature Source Pulse Rate Pulse Rate [Lying] 76 Pulse Rate [Sitting (for 1 minute prior to obtaining)] 73 Pulse Rate [Standing (for 1 minute prior to obtaining)] 82 Respiratory Rate Respiratory Effort Respiratory Pattern Blood Pressure Blood Pressure [Lying] 152/74 H Blood Pressure [Sitting (for 1 minute prior to obtaining)] 145/94 H Blood Pressure [Standing (for 1 minute prior to obtaining)] 155/88 H Blood Pressure Mean Blood Pressure Mean [Lying] 100 Blood Pressure Mean [Sitting (for 1 minute prior to obtaining)] 111 Blood Pressure Mean [Standing (for 1 minute prior to obtaining)] 110 Pulse Ox Oxygen Delivery Method MDM MDM MDM Narrative Medical decision making narrative: 76-year-old female became lightheaded at home then hypotensive then had a syncopal episode. Exam benign. She will undergo cardiac workup with orthostatic vital signs. Repeat exam at around 3:26 PM patient doing well. Family requested a CAT scan of her head and neck. I explained him I think he will be benign but I am happy to get it. Currently she is awake and alert. Acting appropriately. Vital signs are stable. Orthostatic vital signs were negative. She will be admitted for syncope. History & Record Review Discussion w/independent historian: Patient and Family Additional record(s) reviewed:: Prior outpatient record, Prior ED visit and Prior labs Lab Data Attestation: I reviewed the patient's lab results. Lab results narrative: CBC shows a white count of 7 H&H 14 and 41. Platelets of 190. Electrolytes shows sodium 138. Gap 11. Normal BUN and creatinine at 10 and 0.7. Glucose 125. Initial troponin 10. Chest x-ray unremarkable. EKG sinus rhythm. Labs: Laboratory Results - last 24 hr 09/25/25 14:40 WBC 7.3 RBC 4.14 L Hgb 14.1 Hct 41.1 MCV 99.3 H MCH 34.1 H MCHC 34.3 RDW Std Deviation 45.8 H RDW Coeff of Kavon 12.8 Plt Count 190 MPV 10.1 Immature Gran % (Auto) 0.300 Neut % (Auto) 80.1 H Lymph % (Auto) 10.9 L [place] % (Auto) 4.9 Eos % (Auto) 3.3 Baso % (Auto) 0.5 Absolute Neuts (auto) 5.9 Absolute Lymphs (auto) 0.80 L Nucleated RBC % 0 Sodium 138 Potassium 4.1 Chloride 101 Carbon Dioxide 26.5 Anion Gap 11 BUN 10 Creatinine 0.75 Estim Creat Clear Calc 56.38 Est GFR (MDRD) Non-Af 85 BUN/Creatinine Ratio 13.3 Glucose 125 H Calcium 10.0 Troponin T High Sens 10 Radiography Chest X-Ray - ED: 2 View, Read by ED Physician, Read by Radiologist, Normal, Heart, Lungs, Mediastinum, Bony Structures, No Acute Disease and Chronic Changes Diagnostic Testing: Clinical Impression(s) from Imaging Studies Chest X-Ray 09/25/25 14:31 IMPRESSION: No acute cardiopulmonary process. Reading Location: [facility] Chest x-ray, 2 views, AP and lateral, interpreted by myself and the radiologist shows no acute abnormality. Normal cardiac silhouette. Normal lung morrissey. Chronic changes. Rhythm Strip Rhythm Strip: Sinus Rhythm Rate: 66 Ectopy: None EKG Initial EKG: Attestation: I personally reviewed and interpreted this EKG as follows: Interpretation: Sinus Rhythm and No Acute Injury Pattern Comments: Normal sinus rhythm rate of 66 no acute signs of [place] or ischemia. No dysrhythmia. Discharge Plan Triage Chief Complaint: Hypotension ED Provider: Francisco Bender Dx/Rx/DC Orders Prescriptions: No Action gabapentin 300 mg capsule 300 mg PO DAILY etodolac 400 mg tablet 400 mg PO Q12H rosuvastatin 10 mg tablet 10 mg PO QHS Primary Care Provider: Abhishek Benavides Referrals: Abhishek Benavides MD [Primary Care Provider, Medical] Print Language: Prydeinig
--- OUTSIDE RECORDS SUMMARY | 2025-09-25 14:38 | XMS RPT_ITS | CCD ---
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
[2025-09-25 14:47] LABS: Hematocrit 41.1 % (37-47); Hemoglobin 14.1 g/dL (12.0-15.0); Immature Granulocytes Count 0.020 X10^3/uL (0.0-0.0); Mean Corp Hgb Conc 34.3 g/dL (32-36); Mean Corpuscular Volume 99.3 fL (81-99); Mean Platelet Vol. 10.1 fl (6.2-12.0); NRBC Flagged by Analyzer 0 % (0-5); Platelet Count 190 K/mm3 (150-450); RBC Distribution Width CV 12.8 % (11.6-14.6); RBC Distribution Width SD 45.8 fl (35.1-43.9); Red Blood Count 4.14 M/mm3 (4.2-5.4); White Blood Count 7.3 K/mm3 (4.4-11.0)
[2025-09-25 15:13] LABS: Anion Gap 11 (7-18); BUN 10 mg/dL (4-19); BUN/Creat Ratio 13.3 RATIO (10-20); Calcium,Total 10.0 mg/dL (7.6-11.0); Carbon Dioxide 26.5 mmol/L (20.0-29.0); Chloride 101 mmol/L (96-106); Estimated Creatinine Clearance 56.38 ml/min (50-250); Glucose 125 mg/dL (70-99); Potassium 4.1 mmol/L (3.5-5.1); Troponin T High Sensitivity 10 ng/L (<=14)
--- NOTE | 2025-09-25 15:30 | CT_ITS ---
PROCEDURE: SPINE CERVICAL WITHOUT CONTRAS 09/25/2025 REASON FOR EXAM: FALL AND HEAD TRAUMA TECHNIQUE: Procedure Code: CTSPC Modality: CT Procedure: SPINE CERVICAL WITHOUT CONTRAS Coronal and Sagittal reconstruction series were provided. One or more dose reduction techniques were used (e.g., Automated exposure control, adjustment of the mA and/or kV according to patient size, use of iterative reconstruction technique. RADIATION DOSE SUMMARY: DLP: 543 mGycm COMPARISON: none FINDINGS: No acute compression deformity, fracture, or subluxation. Mild to moderate multilevel degenerative changes with mild to moderate multilevel central canal stenosis and foraminal stenosis due to posterior disc-osteophyte complex, facet hypertrophy, and uncovertebral hypertrophy. No high-grade central canal stenosis. The prevertebral soft tissues are not thickened. Thyroid is unremarkable. Limited sections of the lung apices demonstrate no pneumothorax. CT/Spine Cervical without Contras IMPRESSION: No acute cervical fracture or subluxations. [id number] multilevel degene rative changes of the cervical spine as above. Reading Location: [id number]
--- NOTE | 2025-09-25 15:30 | CT_ITS ---
PROCEDURE: BRAIN/HEAD WITHOUT CONTRAST 09/25/2025 REASON FOR EXAM: FALL AND LOC TECHNIQUE: Procedure Code: CTBR Modality: CT Procedure: BRAIN/HEAD WITHOUT CONTRAST Coronal and Sagittal reconstruction series were provided. One or more dose reduction techniques were used (e.g., Automated exposure control, adjustment of the mA and/or kV according to patient size, use of iterative reconstruction technique. RADIATION DOSE SUMMARY: DLP: 687 mGycm COMPARISON: none FINDINGS: There is no acute infarct, intracranial hemorrhage, or mass effect. There is no hydrocephalus or significant midline shift. There is mild chronic microvascular ischemic changes and mild parenchymal volume loss. No acute, depressed calvarial fractures. No large scalp hematomas. The paranasal sinuses are clear. CT/Brain/Head without Contrast IMPRESSION: No acute intracranial process. Reading Location: [facility]
--- NOTE | 2025-09-25 15:37 | HP.PCM.HOS_ITS ---
HPI - General General Date of Admission: 09/25/25 Date of Service: 09/25/25 Chief Complaint: Syncopal event. HPI Narrative The patient is a 75 y/o F w/ PMHx: CKD stage II per previous GFR trending 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 and short course radiation 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, HLD, Asthma w/ chronic allergic rhinitis/postnasal drip with chronic cough who presents to [facility] on 09/25/2025 with history of onset at approximate 12:45 PM on day of presentation lightheadedness with BP initially taken per her 65/50 with a heart rate of 62 with some improvement following as she sat there and rested however when she went to get up she passed out reportedly lasting 20 seconds although her states her eyes were open but she was not responsive with no seizure-like activity and no trauma with no recent URI illness nor any nausea, emesis or diarrhea nor any fevers or chills reportedly eating appropriately prompting eventual ED evaluation be cautious. Patient did report that when she was alert following the event there was no persistent confusion but she was very diaphoretic. Per discussion with patient family her [id number] with whom she was at [place] with did have an upper respiratory type illness described as a cold although herself is feeling improved. That is reportedly the only ill recent contact she has been around. Workup in the ED included T98.2, heart 63, BP 135/77, respiratory rate 16, 99% on room air, orthostatics not marked appearing, most recent repeat vitals heart rate 76, BP 152/74, CBC with WBC 7.3, hemoglobin 14.1, platelet 190 with lymphopenia, CMP with glucose 125, BUN/creatinine 10/0.75, GFR 85, troponin 10, chest x-ray with no acute cardiopulmonary findings, EKG with sinus rhythm with no acute evidence of ischemia. CT head and CT neck pending upon requested evaluation of patient. ED physician noted intention to review these to ensure no concerning findings prior to progression to admission to PCU. In the ED patient administered IVFs. [facility] Medical History (Updated 09/25/25 @ 16:[address] Jyoti Maradiaga MD) Neuropathy History of invasive ductal carcinoma of breast Bladder cancer Asthma High cholesterol Home Medications ?Medication ?Instructions ?Recorded ?Last Taken ?Type etodolac 400 mg tablet 400 mg PO Q12H 09/11/24 Unkn own History gabapentin 300 mg capsule 300 mg PO DAILY 06/10/24 Unk nown History rosuvastatin 10 mg tablet 10 mg PO QHS 06/10/24 Unknow n History Allergy/AdvReac Type Severity Reaction Status Date / Time Cephalosporins Allergy Intermediate Rash Verified 09/25/25 13:47 codeine AdvReac Intermediate Nausea Verified 09/25/25 13:47 house dust AdvReac Intermediate Itching Verified 09/25/25 13:47 nortriptyline AdvReac Intermediate Other Verified 09/25/25 13:47 phenazopyridine (From AdvReac Intermediate Other Verified 09/25/25 13:47 Pyridium) doxycycline AdvReac Mild Nausea Verified 09/25/25 13:47 Family History Mother CVA (cerebral vascular accident) Seizures Father Heart disease CAD (coronary artery disease) Myocardial infarction Hypertension Surgical History Hx of vitrectomy Hx of partial mastectomy Social History household members: spouse Smoking Status: Never smoker alcohol intake: never substance use type: does not use ROS ROS Narrative Admission Review of Systems: CONSTITUTIONAL: No weight loss, fever, chills, + weakness or fatigue. HEENT: + Syncopal events/lightheadedness/dizziness, chronic allergic rhinitis with postnasal drip with associated chronic cough. Eyes: No visual loss, blurred vision, double vision or yellow sclerae. Ears, Nose, Throat: No hearing loss, sneezing. SKIN: No rash or itching, lesions, wounds. CARDIOVASCULAR: No chest pain, chest pressure or chest discomfort, palpitations, edema, orthopnea, syncopal events. RESPIRATORY: + Chronic cough associated with postnasal drip. No shortness of breath, wheezing, hemoptysis. GASTROINTESTINAL: No anorexia, nausea, vomiting or diarrhea, abdominal pain, melena, BRBPR. GENITOURINARY: No dysuria, frequency, urgency or retention. NEUROLOGICAL: + Syncopal event/lightheadedness/dizziness, chronic neuropathy. No headache, paralysis, ataxia, numbness or tingling in the extremities, focal weakness, change in bowel or bladder control, seizure. MUSCULOSKELETAL: + muscle, back pain, joint pain or stiffness. HEMATOLOGIC: No anemia, bleeding or bruising. LYMPHATICS: No enlarged nodes. No history of splenectomy. PSYCHIATRIC: No history of depression or anxiety. ENDOCRINOLOGIC: + Noted episode of diaphoresis following syncopal event. No cold or heat intolerance. No polyuria or polydipsia. ALLERGIES: + History of asthma with allergic rhinitis/chronic postnasal drip with cough Patient's Goals Of Care . What would you like to achieve or improve as a result of your hospital stay?: U nderstand reason for her syncopal event, assure no major cause. Vital Signs Vital Signs Vital Signs: 09/25/25 13:43 09/25/25 13:59 09/25/25 14:06 Temperature 98.2 F Temperature Source Oral Pulse Rate 63 62 Pulse Rate [Lying] Pulse Rate [Sitting (for 1 minute prior to obtaining)] Pulse Rate [Standing (for 1 minute prior to obtaining)] Respiratory Rate 16 19 H Respiratory Effort Normal Respiratory Pattern Normal Blood Pressure 135/77 H Blood Pressure [Lying] Blood Pressure [Sitting (for 1 minute prior to obtaining)] Blood Pressure [Standing (for 1 minute prior to obtaining)] Blood Pressure Mean 96 Blood Pressure Mean [Lying] Blood Pressure Mean [Sitting (for 1 minute prior to obtaining)] Blood Pressure Mean [Standing (for 1 minute prior to obtaining)] Pulse Ox 99 100 Oxygen Delivery Method Room Air 09/25/25 14:15 09/25/25 14:30 09/25/25 14:40 Temperature Temperature Source Pulse Rate 66 78 Pulse Rate [Lying] Pulse Rate [Sitting (for 1 minute prior to obtaining)] Pulse Rate [Standing (for 1 minute prior to obtaining)] Respiratory Rate 13 22 H Respiratory Effort Respiratory Pattern Blood Pressure 148/77 H 179/75 H Blood Pressure [Lying] Blood Pressure [Sitting (for 1 minute prior to obtaining)] Blood Pressure [Standing (for 1 minute prior to obtaining)] Blood Pressure Mean 100 96 Blood Pressure Mean [Lying] Blood Pressure Mean [Sitting (for 1 minute prior to obtaining)] Blood Pressure Mean [Standing (for 1 minute prior to obtaining)] Pulse Ox 98 97 Oxygen Delivery Method Room Air Room Air Room Air 09/25/25 14:45 09/25/25 14:45 09/25/25 15:00 Temperature Temperature Source Pulse Rate 73 73 68 Pulse Rate [Lying] Pulse Rate [Sitting (for 1 minute prior to obtaining)] Pulse Rate [Standing (for 1 minute prior to obtaining)] Respiratory Rate 12 12 17 Respiratory Effort Respiratory Pattern Blood Pressure 144/73 H Blood Pressure [Lying] Blood Pressure [Sitting (for 1 minute prior to obtaining)] Blood Pressure [Standing (for 1 minute prior to obtaining)] Blood Pressure Mean 93 Blood Pressure Mean [Lying] Blood Pressure Mean [Sitting (for 1 minute prior to obtaining)] Blood Pressure Mean [Standing (for 1 minute prior to obtaining)] Pulse Ox 99 99 99 Oxygen Delivery Method Room Air 09/25/25 15:10 Temperature Temperature Source Pulse Rate Pulse Rate [Lying] 76 Pulse Rate [Sitting (for 1 minute prior to obtaining)] 73 Pulse Rate [Standing (for 1 minute prior to obtaining)] 82 Respiratory Rate Respiratory Effort Respiratory Pattern Blood Pressure Blood Pressure [Lying] 152/74 H Blood Pressure [Sitting (for 1 minute prior to obtaining)] 145/94 H Blood Pressure [Standing (for 1 minute prior to obtaining)] 155/88 H Blood Pressure Mean Blood Pressure Mean [Lying] 100 Blood Pressure Mean [Sitting (for 1 minute prior to obtaining)] 111 Blood Pressure Mean [Standing (for 1 minute prior to obtaining)] 110 Pulse Ox Oxygen Delivery Method Weight Weight: 141 lb Body Mass Index (BMI) 25.0 Physical Exam Narrative Physical Examination: General: Awake, alert, oriented x 3 and cooperative, seated upright in bed bed, no acute distress, well-appearing. Skin: Normal color, normal turgor, no icterus, no cyanosis except occasional abrasion. HEENT: AT/NC, EOMI, PERRLA, MMM, no carotid bruits or JVD noted. Lungs: Mildly diminished, greater bases, appropriate effort, no rales, ronchi or wheezing. Heart: Regular rate and rhythm; no gallop, rub audible. Abdomen: Soft, NTTP, ND, mildly hyperactive BS, no appreciated HSM. Extremities: No cyanosis, no clubbing, mild ankle not markedly pitting edema bilaterally. Neurological: Patient awake, alert, oriented as noted, cognitive function intact; pupils equally reactive to light and accommodation, cranial nerves grossly normal, moving all 4 extremities, no focal deficits, strength currently appears preserved, no current reported dizziness/lightheadedness. Psychiatric: Affect appears normal, appropriately interactive, no acute evidence of depressive or anxiety feelings. Results Lab / Micro Data 09/25/25 14:40 09/25/25 14:40 Labs: Laboratory Results - last 24 hr 09/25/25 14:40: WBC 7.3, RBC 4.14 L, Hgb 14.1, Hct 41.1, MCV 99.3 H, MCH 34.1 H, MCHC 34.3, RDW Std Deviation 45.8 H, RDW Coeff of Kavon 12.8, Plt Count 190, MPV 10.1, Immature Gran % (Auto) 0.300, Neut % (Auto) 80.1 H, Lymph % (Auto) 10.9 L, [place] % (Auto) 4.9, Eos % (Auto) 3.3, Baso % (Auto) 0.5, Absolute Neuts (auto) 5.9, Absolute Lymphs (auto) 0.80 L, Nucleated RBC % 0, Sodium 138, Potassium 4.1, Chloride 101, Carbon Dioxide 26.5, Anion Gap 11, BUN 10, Creatinine 0.75, Estim Creat Clear Calc 56.38, Est GFR (MDRD) Non-Af 85, BUN/Creatinine Ratio 13.3, Glucose 125 H, Calcium 10.0, Troponin T High Sens 10 Rhythm Strip Rhythm Strip: Sinus Rhythm Rate: 66 Ectopy: None Imaging Radiology Impression Chest X-Ray 09/25/25 14:31 IMPRESSION: No acute cardiopulmonary process. Reading Location: [facility] Assessment & Plan Assessment/Plan (1) Syncope: PLAN: Plan The patient is a 75 y/o F w/ PMHx: CKD stage II per previous GFR trending 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 and short course radiation 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, HLD, Asthma w/ chronic allergic rhinitis/postnasal drip with chronic cough who presents to [facility] on 09/25/2025 with history of onset at approximate 12:45 PM on day of presentation lightheadedness with BP initially taken per her 65/50 with a heart rate of 62 with some improvement following as she sat there and rested however when she went to get up she passed out reportedly lasting 20 seconds although her states her eyes were open but she was not responsive with no seizure-like activity and no trauma with no recent URI illness nor any nausea, emesis or diarrhea nor any fevers or chills reportedly eating appropriately prompting eventual ED evaluation. #1. Syncopal Event: Pending CT head and CT neck upon request evaluation of patient. If these images demonstrate no concerning findings that were would require transfer would proceed with admission to PCU. In the ED evaluation included EKG in ED w/ sinus rhythm without evidence of acute ischemia, CXR w/ no acute cardiopulmonary findings, initial trop normal. Will place on a monitored bed to assure no acute myocardial infarction with continued ED initiated enzyme series, will maintain on fall precautions, orthostatic unremarkable but will plan repeat orthostatics in a.m. to be cautious, will maintain on judicious IV fluids, will obtain ECHO, PT/OT consultation to ascertain stability and discharge needs, UA pending. #2. Elevated blood pressure without hypertensive history: Patient with elevated blood pressure in the ED, noted previously 11/2024 also similar presentation with elevated BP without hypertensive history, will continue to closely monitor especially given complaint upon presentation and if appropriate add regimen, will have in the interim as needed IV hydralazine. #3. Chronic Kidney Disease Stage II per GFR trending: Admission BUN/Cr 10/0.75, GFR 85, baseline renal function 0.7-0 point, repeat BMP in AM. #4. Chronic asthma: Per current list not on any regimen chronically, will have as needed PRN albuterol, HOB, IS parameters. #5. History of breast cancer, right invasive ductal carcinoma: Patient with history of previous breast cancer, status post partial mastectomy and short course radiation, reportedly in remission, encourage follow-up outpatient as previously arranged. #6. Bladder cancer: Patient with ongoing chemotherapy bladder infusions for maintenance therapy, following with [facility] urology, encourage follow-up with urology as previously arranged, mag/Phos requested. #7. Hyperlipidemia: Continue home statin regimen. AM FLP. #8. DVT prophylaxis: Lovenox. #9. CODE status: Patient HCPSHARYN is her who is and living will is currently in place. Discussed CODE status at length including difference between FULL code, DNR-CCA and DNR-CC status. Following discussions about the differences in these status, requested Full Code status. Charges/Coding Visit Charges Inpatient E&M: 46517 Init Hosp L2
--- OUTSIDE RECORDS SUMMARY | 2025-09-25 16:18 | XMS RPT_ITS | CCD ---
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 Abhishek Huynh MD Primary Care Provider Dr. Srinivasa Cruz DO Emergency Provider Dr. Srinivasa Cruz DO Attending Provider Dr. Dee Mondragon MD Attending Provider [phone] Abhishek Huynh Primary Care Unavailable Dee Mondragon Attending Unavailable Johnson, Jose Attending Unavailable Abhishek Huynh Primary Care Unavailable Abhishek Huynh Primary Care Unavailable Srinivasa Cruz Attending Unavailable FELICIA, NIKOLE Referring Unavailable ABHISHEK HUYNH Primary Care Unavailable ABHISHEK HUYNH Primary Care Unavailable SHELIAA, NIKOLE Referring Unavailable ABHISHEK HUYNH Primary Care Unavailable SHELIAA, NIKOLE Referring Unavailable ABHISHEK HUYNH Primary Care Unavailable FELICIA NIKOLE Attending Unavailable ABHISHEK HUYNH Primary Care Unavailable SELF Referring Unavailable VIBHA ROSA Attending Unavailable AMINA, ABHISHEK Sharpe Primary Care Unavailable MARIALUISA BROWN Attending Unavailable AMINA, ABHISHEK J Primary Care Unavailable CARLTON VERDE Attending Unavailable AMINA, ABHISHEK Sharpe Primary Care Unavailable BUKAVINA, NIKOLE Referring Unavailable AMINA, ABHISHEK J Primary Care Unavailable BUKAVINA, NIKOLE Referring Unavailable AMINA, ABHISHEK J Primary Care Unavailable RADHA HER Attending Unavailable AMINA, ABHISHEK J Primary Care Unavailable BUKAVINA, NIKOLE Referring Unavailable AMINA, ABHISHEK J Primary Care Unavailable BUKAVINA, NIKOLE Referring Unavailable AMINA, ABHISHEK J Primary Care Unavailable BUKAVINA, NIKOLE Attending Unavailable AMINA, ABHISHEK J Primary Care Unavailable BUKAVINA, NIKOLE Referring Unavailable AMINA, ABHISHEK J Primary Care Unavailable RADHA HER Referring Unavailable LEMFARZANA GALINDO Attending Unavailable AMINA, ABHISHEK Sharpe Primary Care Unavailable ARDEN, RADHA Referring Unavailable LEMON, FARZANA Attending Unavailable AMINA, ABHISHEK J Primary Care Unavailable AMINA, ABHISHEK J Primary Care Unavailable FELICITAS GONZALES Attending Unavailable AMINA, ABHISHEK Sharpe Primary Care Unavailable BUKAVINA, NIKOLE Referring Unavailable AMINA, ABHISHEK Sharpe Primary Care Unavailable BUKAVINA, NIKOLE Referring Unavailable AMINA, ABHISHEK J Primary Care Unavailable BUKAVINA, NIKOLE Referring Unavailable BUKAVINA, NIKOLE Attending Unavailable AMINA, ABHISHEK Sharpe Primary Care Unavailable IVETTE DIAZ Attending Unavailable AMINA, ABHISHEK Sharpe Primary Care Unavailable BUKAVINA, NIKOLE Attending Unavailable BUKAVINA, NIKOLE Admitting Unavailable AMINA, ABHISHEK J Primary Care Unavailable BUKAVINA, NIKOLE Referring Unavailable AMINA, ABHISHEK Sharpe Primary Care Unavailable AMINA, ABHISHEK Sharpe Attending Unavailable AMINA, ABHISHEK Sharpe Primary Care Unavailable BUKAVINA, NIKOLE Referring Unavailable AMINA, ABHISHEK J Primary Care Unavailable BUKAVINA, NIKOLE Attending Unavailable BUKAVINA, NIKOLE Admitting Unavailable AMINA, ABHISHEK Sharpe Primary Care Unavailable RADHA HER Referring Unavailable AMINA, ABHISHEK Sharpe Primary Care Unavailable BUKAVINA, NIKOLE Attending Unavailable AMINA, ABHISHEK Sharpe Primary Care Unavailable AMINA, ABHISHEK J Referring Unavailable Allergies Allergy Classification Reported Allergen(s) Allergy Type Date of Onset Reaction(s) Facility (20 sources) Cephalosporins (Antibiotic); Translations: [CEPHALOSPORINS] Propensity to adverse reactions 01-19-20 08 Rash [facility] Work Phone: (20 sources) Codeine; Translations: [CODEINE] Drug Allergy 01-11-20 07 GI Upset [facility] Work Phone: (20 sources) Doxycycline; Translations: [DOXYCYCLINE HYCLATE] Drug Allergy 04-01-20 18 Intolerance [facility] Work Phone: (20 sources) Dust; Translations: [DUST] Propensity to adverse reactions 01-14-20 Itching [facility] Work Phone: (20 sources) Nortriptyline; Translations: [NORTRIPTYLINE] Drug Allergy 10-24-19 21 Intolerance [facility] Work Phone: Comment on above: high blood pressure (20 sources) Phenazopyridine; Translations: [PHENAZOPYRIDINE] Drug Allergy 09-03-20 Other: See Comments [facility] Work Phone: Comment on above: dizziness (20 sources) Ragweed; Translations: [RAGWEED] Propensity to adverse reactions 01-14-20 07 [facility] Work Phone: (20 sources) Howie [Other] Propensity to adverse reactions 01-14-20 07 [facility] Work Phone: (20 sources) Cephalosporins (Antibiotic) Propensity to adverse reactions 01-19-20 08 Rash [facility] Work Phone: (2 sources) Cephalosporins (Antibiotic) Allergy to substance 12-22-19 Rash [facility] (2 sources) Doxycycline Drug Allergy 12-22-19 Nausea [facility] (2 sources) house dust allergenic extract Drug Allergy 12-22-19 Itching [facility] (1 source) Cephalosporins (Antibiotic) Drug allergy (disorder) 12-22-19 [facility] (1 source) Codeine Drug Allergy 12-22-19 [facility] (1 source) Doxycycline Drug Allergy 12-22-19 [facility] (1 source) house dust allergenic extract Drug Allergy 12-22-19 [facility] (1 source) Nortriptyline Drug Allergy 12-22-19 [facility] (1 source) Phenazopyridine Drug Allergy 12-22-19 [facility] Medications Current Medications Medication Drug Class(es) Dates Sig (Normalized) Sig (Original) acetaminophen 325 mg / oxyCODONE hydrochloride 5 mg oral tablet (1 source) Opioid Agonist Start: 04-06-2024 End: 04-08-2024 take 1 tablet by mouth every eight hours as needed for pain oxyCODONE-acetamin ophen (PERCOCET) 5-325 mg tablet 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 6 tablet 0 04/06/2024 04/08/2024 Active [id number] 200 actuat albuterol 0.09 mg/actuat metered dose inhaler (20 sources) beta2-Adrenergic Agonist Start: 09-03-2019 End: 07-01-2024 take 2 puff(s) by inhalation every four hours as needed albuterol HFA (VENTOLIN HFA) 90 mcg/actuation inhaler Indications: Mild intermittent asthma without complication (HCC) Inhale 2 Puffs as instructed every 4 hours as needed. 1 Each 1 07/01/2024 Active Comment on above: Inhale 2 Puffs as in structed every 4 hours as needed. amoxicillin 875 mg / clavulanate 125 mg oral tablet (1 source) Penicillin-class Antibacterial Start: 05-14-2022 End: 05-24-2022 take 1 tablet by mouth twice daily amoxicillin-clavul anic acid (AUGMENTIN) 875-125 mg per tablet Indications: Acute non-recurrent maxillary sinusitis Take 1 tablet by mouth twice daily for 10 days. 20 tablet 0 05/14/2022 05/24/2022 Active Comment on above: Take 1 tablet by rashmi twice daily for 10 days. ascorbic acid 113 mg / beta carotene 7160 mg / cuprous oxide 0.4 mg / dl-alpha tocopheryl acetate 100 unt / zinc oxide 17.4 mg oral tablet (20 sources) Vitamin C Start: 04-01-2018 take 1 tablet by mouth twice daily vit A,C,U-Ytfh-Dogsab (PRESERVISION AREDS) 7,160-113-100 dgdd-rg-dlgl tab Take 1 tablet by mouth twice daily. 04/01/2018 Active Comment on above: Take 1 tablet by rashmi twice daily. azelastine hydrochloride 0.5 mg/ml ophthalmic solution (20 sources) Histamine-1 Receptor Antagonist Start: 05-14-2022 take 1 drop(s) into the eye(s) every twelve hours as needed Azelastine HCl (OPTIVAR) 0.05 % ophthalmic solution Use 1 Drop in both eyes twice daily as needed (allergies). 6 mL 2 05/14/2022 Active Start: 04-26-2021 End: 05-14-2022 take 1 drop(s) into the eye(s) twice daily as needed Azelastine HCl (OPTIVAR) 0.05 % ophthalmic solution Use 1 Drop in both eyes twice daily as needed (allergies). 6 mL 2 05/14/2022 Active Start: 11-07-2020 End: 04-26-2021 take 1 drop(s) into the eye(s) every twelve hours as needed Azelastine HCl (OPTIVAR) 0.05 % ophthalmic solution Use 1 Drop in both eyes twice daily as needed (allergies). 1 Bottle 1 11/07/2020 04/26/2021 Discontinued Comment on above: Use 1 Drop in both e yes twice daily as needed (allergies). benoxinate hydrochloride 4 mg/ml / fluorescein sodium 3 mg/ml ophthalmic solution (5 sources) Diagnostic Dye Start: 03-02-2025 End: 03-02-2025 fluorescein-benox inate 0.3-0.4 % 1 drop (FLURESS) Start: 03-02-2025 End: 03-02-2025 1 drop, BOTH EYES, DIRECT ED, Starting on Sat03/02/25 at 0900, Until Sat03/02/25 at 2058, Administer for applanation tonometry. In the event of a Fluress shortage, administer 1 drop of [place]-Fluor into both eyes as directed for applanation tonometry., OPHT CLINIC MED ORDERS Start: 02-27-2024 End: 02-27-2024 fluorescein-benoxinate 0.25- 0.4 % 1 Drop (FLURESS) Start: 01-18-2022 End: 01-18-2022 fluorescein-benoxinate 0.25- 0.4 % 1 Drop (FLURESS) calcium carbonate 600 mg ora l capsule (20 sources) take 600 mg by mouth once daily calcium carbonate (CALCIUM 600 ORAL) Take 600 mg by mouth once daily. Active Comment on above: Take 600 mg by mouth once daily. Carboxymethylcellulose (20 sources) carboxymethylcel lulose sodium (REFRESH OPHTHALMIC) Use 1 Drop in eyes as needed. Suspended carboxymethylcel lulose sodium (REFRESH OPHTHALMIC) Use 1 Drop in eyes as needed. Active carboxymethylcel lulose sodium (REFRESH OPHTHALMIC) Use 1 Drop in eyes as needed. 0 Active Comment on above: Use 1 Drop in eyes a s needed. cholecalciferol 0.125 mg oral capsule (20 sources) Vitamin D Start: 10-16-2018 End: 12-23-2023 take 1 capsule by mouth once daily Cholecalciferol, Vitamin D3, 125 mcg (5,000 unit) cap Take 1 capsule by mouth once daily. 12/23/2023 Active End: 12-23-2023 take 1 capsule by mouth twice daily Cholecalciferol, Vitamin D3, (VITAMIN D-3) 50 mcg (2,000 unit) cap Take 2,000 Units by mouth two times a day. 0 12/23/2023 Discontinued Comment on above: Take 1 capsule by [facility] once daily. Take 2,000 Units by mouth two times a day. Chondroitin Sulfates / Glucosamine (20 sources) Start: 03-26-2012 take 1 tablet by mouth twice daily Ugee-Vims-FCO#1-C-M ang-Trevon-Bor (OSTEO BI-FLEX) 750-625-30 mg Tab Take 1 tablet by mouth twice daily. 60 tablet 3 03/26/2012 Suspended Start: 03-26-2012 take 1 tablet by rashmi twice daily Sgnp-Ehhc-LRW#2-V-Rxlq-Trevon-Bor (OSTEO BI-FLEX) 750-625-30 mg Tab Take 1 tablet by mouth twice daily. 60 tablet 3 03/26/2012 Active Comment on above: Take 1 tablet by rashmi twice daily. ciprofloxacin 500 mg oral tablet (2 sources) Quinolone Antimicrobial Start: 02-26-20 End: 02-29-20 25 take 1 tablet by mouth twice daily ciprofloxacin HCl (CIPRO) 500 mg tablet Take 1 tablet by mouth two times a day for 3 days. 6 tablet 02/25/2025 02/28/2025 Active etodolac 400 mg oral tablet (20 sources) Nonsteroidal Anti-inflammatory Drug Start: 06-10-20 24 take 1 tablet by mouth every twelve hours Etodolac 400 mg tablet Active 400 mg PO Q12H June 10, 2024 12:00am Start: 12-23-2023 End: 02-12-2025 take 1 tablet by mouth every other day etodolac (LODINE) 400 mg tablet Take 1 tablet by mouth every other day. 90 tablet 1 12/23/2023 02/12/2025 Discontinued (Other) Start: 11-19-2022 End: 12-23-2023 take 1 tablet by mouth once daily as needed etodolac (LODINE) 400 mg tablet Take 1 tablet by mouth once daily as needed. 30 tablet 3 11/19/2022 05/13/2023 Discontinued Start: 10-24-2020 End: 08-09-2021 take 1 tablet by mouth once daily etodolac (LODINE) 400 mg tablet Indications: Primary osteoarthritis of left knee Take 1 tablet by mouth once daily. 30 tablet 2 10/24/2020 08/09/2021 Discontinued Comment on above: Take 1 tablet by rashmi th once daily as needed. Take 1 tablet by rashmi th every other day. gabapentin 100 mg oral capsule (20 sources) Anti-epileptic Agent Start: 12-21-2024 End: 09-02-2025 take 2 capsules by mouth once daily in the morning gabapentin (NEURONTIN) 100 mg capsule Two capsules (200mg) by mouth every morning. 180 capsule 5 12/21/2024 09/02/2025 Active Start: 06-05-2023 End: 12-18-2024 take 2 capsules by mouth once daily in the morning gabapentin (NEURONTIN) 100 mg capsule Two capsules (200mg) by mouth every morning. 60 capsule 5 02/18/2024 12/18/2024 Discontinued Start: 11-28-2022 End: 06-05-2025 take 1 capsule by mouth once daily at bedtime gabapentin (NEURONTIN) 300 mg capsule Take 1 capsule by mouth daily at bedtime for 180 days. 30 capsule 5 12/07/2024 06/05/2025 Active Start: 08-09-2021 End: 06-05-2023 take 1 capsule by mouth three times daily gabapentin (NEURONTIN) 100 mg capsule Take 1 capsule by mouth three times daily for 180 days. 270 capsule 3 01/29/2022 06/05/2023 Discontinued Comment on above: Take 1 capsule by [facility] three times daily for 180 days. Take 1 capsule by [facility] daily at bedtime for 30 days. Take 1 capsule by [facility] daily at bedtime for 180 days. Two capsules (200mg) by mouth every morning. iv contrast (will be provided with radiology test) (2 sources) Start: 01-07-20 End: 01-08-20 iv contrast (will be provided with radiology test) CT Urogram WO/W Inject, intravenously, once for 1 dose.No IV access, insert saline lock prior to the beginning of sedation, infusion, injection of imaging exam. Discontinue saline lock post exam. If Pt. has a central line or IVAD, may access for administration according to line specific nursing protocol. Once exam is complete flush line and de-access according to line specific nursing protocol in the CT contrast administration guidelines link. 1 each 01/06/2025 01/07/2025 Active LORazepam 1 mg oral tablet (10 sources) Benzodiazepine Start: 02-26-20 End: 03-27-20 take 0.5-1 tablets by mouth every eight hours LORazepam (ATIVAN) 1 mg tablet Indications: Situational anxiety Take 0.5-1 tablets by mouth every 8 hours for 30 days. 30 tablet 02/25/2025 03/27/2025 Active Start: 12-23-2023 End: 01-22-2024 take 0.5-1 tablets by mouth every eight hours LORazepam (ATIVAN) 1 mg tablet Indications: Situational anxiety Take 0.5-1 tablets by mouth every 8 hours for 30 days. 30 tablet 0 12/23/2023 01/22/2024 Active Start: 09-03-2023 End: 10-03-2023 take 0.5-1 tablets by mouth every eight hours LORazepam (ATIVAN) 1 mg tablet Indications: Situational anxiety Take 0.5-1 tablets by mouth every 8 hours for 30 days. 30 tablet 0 09/03/2023 10/03/2023 Active Start: 09-04-2022 End: 10-04-2022 take 0.5-1 tablets by mouth every eight hours LORazepam (ATIVAN) 1 mg tablet Indications: Situational anxiety Take 0.5-1 tablets by mouth every 8 hours for 30 days. 30 tablet 0 09/04/2022 10/04/2022 Active Comment on above: Take 0.5-1 tablets b y mouth every 8 hours for 30 days. phenylephrine hydrochloride 25 mg/ml ophthalmic solution (5 sources) alpha-1 Adrenergic Agonist Start: 03-02-2025 End: 03-02-2025 PHENYLephrine 2.5 % 1 drop (AK-DILATE, RICHIE-SYNEPHRINE) Start: 03-02-2025 End: 03-02-2025 1 drop, BOTH EYES, DIRECT ED, Starting on Sat03/02/25 at 0900, Until Sat03/02/25 at 2058, Administer for dilation PROTECT FROM LIGHT, OPHT CLINIC MED ORDERS Start: 02-27-2024 End: 02-27-2024 PHENYLephrine 2.5 % 1 Drop ( AK-DILATE, RICHIE-SYNEPHRINE) Start: 01-18-2022 End: 01-18-2022 PHENYLephrine 2.5 % 1 Drop ( AK-DILATE, RICHIE-SYNEPHRINE) predniSONE 20 mg oral tablet (1 source) Start: 03-09-2024 End: 03-14-2024 take 1 tablet by mouth once daily at mealtime predniSONE (DELTASONE) 20 mg tablet Indications: Pain of left lower extremity Take 1 tablet by mouth once daily for 5 days. Take daily with food. 5 tablet 0 03/09/2024 03/14/2024 Active proparacaine hydrochloride 5 mg/ml ophthalmic solution (3 sources) Local Anesthetic Start: 03-02-2025 End: 03-02-2025 proparacaine 0.5 % 1 drop (ALCAINE) Start: 02-27-2024 End: 02-27-2024 proparacaine 0.5 % 1 Drop (A LCAINE) Propylene glycol (20 sources) propylene glycol (SYSTANE COMPLETE OPHTHALMIC) Use 1 Drop in eyes as needed. Suspended propylene glycol (SYSTANE COMPLETE OPHTHALMIC) Use 1 Drop in eyes as needed. Active propylene glycol (SYSTANE COMPLETE OPHTHALMIC) Use 1 Drop in eyes as needed. 0 Active Comment on above: Use 1 Drop in eyes a s needed. psyllium husk (METAMUCIL ORAL) (20 sources) psyllium husk (M ETAMUCIL ORAL) Take 1 teaspoonful by mouth two times a day. Suspended psyllium husk (M ETAMUCIL ORAL) Take 1 teaspoonful by mouth two times a day. Active psyllium husk (M ETAMUCIL ORAL) Take 1 teaspoonful by mouth two times a day. 0 Active psyllium husk (M ETAMUCIL ORAL) Take 1 teaspoonful by mouth once daily. 0 Active psyllium husk (M ETAMUCIL ORAL) Take by mouth. 0 Active Comment on above: Take by mouth. Take 1 teaspoonful b y mouth once daily. Take 1 teaspoonful b y mouth two times a day. rosuvastatin calcium 10 mg oral tablet (20 sources) HMG-CoA Reductase Inhibitor Start: 023 End: 026 take 1 tablet by mouth once daily at bedtime rosuvastatin (CRESTOR) 10 mg tablet Indications: Mixed hyperlipidemia Take 1 tablet by mouth daily at bedtime. 90 tablet 3 02/25/2025 02/25/2026 Active Comment on above: Take 1 tablet by rashmi th daily at bedtime. tropicamide 10 mg/ml ophthalmic solution (5 sources) Anticholinergic Start: 025 End: 025 tropicamide 1 % 1 drop (MYDRIACYL) Start: 03-02-2025 End: 03-02-2025 1 drop, BOTH EYES, DIRECT ED, Starting on Sat03/02/25 at 0900, Until Sat03/02/25 at 2058, Administer for dilation, OPHT CLINIC MED ORDERS Start: 02-27-2024 End: 02-27-2024 tropicamide 1 % 1 Drop (MYDR IACYL) Start: 01-18-2022 End: 01-18-2022 tropicamide 1 % 1 Drop (MYDR IACYL) trospium chloride 20 mg oral tablet (12 sources) Cholinergic Muscarinic Antagonist Start: 02-23-2025 End: 03-25-2025 take 1 tablet by mouth twice daily trospium (SANCTURA) 20 mg tablet Take 1 tablet by mouth two times a day. 60 tablet 2 02/23/2025 Active Completed/Discontinued Medications Medication Drug Class(es) Dates Sig (Normalized) Sig (Original) bcg (PACNHO BCG) 50 mg in NaCl (PF) 0.9% 50 mL (4 sources) Start: 03-19-2025 End: 03-19-2025 50 mg, INTRAVESICAL, ONCE, 1 dose, On Sat03/19/25 at 1000, Instill into bladder via catheter and retain for 120 minutes, followed by bladder drainage. PROTECT FROM LIGHT Hazardous Chemotherapy Drug: Use appropriate PPE. Protect from Light. Start: 03-12-2025 End: 03-12-2025 50 mg, INTRAVESICAL, ONCE, 1 dose, On Sat03/12/25 at 1000, Instill into bladder via catheter and retain for 120 minutes, followed by bladder drainage. PROTECT FROM LIGHT Hazardous Chemotherapy Drug: Use appropriate PPE. Protect from Light. Start: 03-05-2025 End: 03-05-2025 50 mg, INTRAVESICAL, ONCE, 1 dose, On Sat03/05/25 at 1000, Instill into bladder via catheter and retain for 120 minutes, followed by bladder drainage. PROTECT FROM LIGHT Hazardous Chemotherapy Drug: Use appropriate PPE. Protect from Light. Start: 02-09-2025 End: 02-09-2025 50 mg, INTRAVESICAL, ONCE, 1 dose, On Sat02/09/25 at 0930, Instill into bladder via catheter and retain for 120 minutes, followed by bladder drainage. PROTECT FROM LIGHT Hazardous Chemotherapy Drug: Use appropriate PPE. Protect from Light. betamethasone 3 mg/ml / betamethasone acetate 3 mg/ml injectable suspension (1 source) Corticosteroid Start: 09-21-2022 End: 09-21-2022 betamethasone acetate-betamethasone sodium phosphate 3 mg injection (CELESTONE) Start: 09-21-2022 End: 09-21-2022 betamethasone acetate-betame thasone sodium phosphate 3 mg injection (CELESTONE) betamethasone acetate-betamethasone sodium phosphate 6 mg, bupivacaine (PF) 0.25 % (2.5 mg/mL) 5 mg, lidocaine (PF) 10 mg/mL (1 %) 20 mg (1 source) Start: 02-01-2022 End: 02-01-2022 betamethasone acetate-betamethasone sodium phosphate 6 mg, bupivacaine (PF) 0.25 % (2.5 mg/mL) 5 mg, lidocaine (PF) 10 mg/mL (1 %) 20 mg calcium carbonate 1500 mg / cholecalciferol 0.01 mg oral capsule (1 source) Vitamin D End: 12-23-2023 take 1 capsule by mouth once daily Calcium-Cholecalciferol, D3, 600 mg-10 mcg (400 unit) cap Take 1 capsule by mouth once daily. 0 12/23/2023 Discontinued Comment on above: Take 1 capsule by mo [facility] once daily. Calcium Carbonate / vitamin D3 (13 sources) End: 01-24-2023 take 1 tablet by mouth once daily calcium carbonate/vitamin D3 (CALCIUM 600 + D,3, ORAL) Take 1 tablet by mouth once daily. 01/24/2023 Discontinued (Other) End: 01-24-2023 take 1 tablet by mouth once daily calcium carbonate/vitamin D3 (CALCIUM 600 + D,3, ORAL) Take 1 tablet by mouth once daily. 0 01/24/2023 Discontinued (Other) take 1 tablet by rashmi once daily calcium carbonate/vitamin D3 (CALCIUM 600 + D,3, ORAL) Take 1 tablet by mouth once daily. 0 Active Comment on above: Take 1 tablet by rashmi once daily. dextran 70 1 mg/ml / hypromellose 3 mg/ml ophthalmic solution (20 sources) Plasma Volume Block Paver Start: 03-13-2010 End: 01-24-2023 dextran 70/hypromellose(ARTIFICIAL TEARS EYE DROPS) as necessary 0 03/13/2010 01/24/2023 Discontinued (Other) Comment on above: as necessary DOCEtaxel 37.5 mg in NaCl (PF) 0.9% 50 mL (TAXOTERE) (2 sources) Start: 06-15-2025 End: 06-15-2025 37.5 mg, INTRAVESICAL, ONCE, 1 dose, On Sat06/15/25 at 0730, Instruct patient to not urinate for 120 minutes after catheter removal. EXP: Hazardous Chemotherapy Drug: Use appropriate PPE. Antineoplastic Irritant - Total Volume Start: 05-13-2025 End: 05-13-2025 37.5 mg, INTRAVESICAL, ONCE, 1 dose, On Sat05/13/25 at 0730, Instruct patient to not urinate for 120 minutes after catheter removal. EXP: Hazardous Chemotherapy Drug: Use appropriate PPE. Antineoplastic Irritant - Total Volume Famotidine (20 sources) Histamine-2 Receptor Antagonist End: 02-12-2025 take 1 tablet by mouth twice daily famotidine (PEPCID ORAL) Take 1 tablet by mouth two times a day. 02/12/2025 Discontinued (Other) take 1 tablet by mouth twice allyn ly famotidine (PEPCID ORAL) Take 1 tablet by mouth twice daily. Suspended take 1 tablet by mouth twice allyn ly famotidine (PEPCID ORAL) Take 1 tablet by mouth twice daily. Active take 1 tablet by mouth twice allyn ly famotidine (PEPCID ORAL) Take 1 tablet by mouth twice daily. 0 Active famotidine (PEPC ID ORAL) Take by mouth. 0 Active Comment on above: Take by mouth. Take 1 tablet by rashmi th twice daily. FLAXSEED OIL ORAL (1 source) End: 4 take 1000 mg by mouth twice daily FLAXSEED OIL ORAL Take 1,000 mg by mouth two times a day. 0 12/23/2023 Discontinued Comment on above: Take 1,000 mg by rashmi th two times a day. fluticasone propionate 0.05 mg/actuat metered dose nasal spray (3 sources) Corticosteroid Start: 0 End: 2 take 1 spray(s) nasal route once daily fluticasone (FLONASE) 50 mcg/actuation nasal spray Indications: Post-nasal drainage instill 1 spray into each nostril once daily 1 Bottle 5 07/01/2020 01/18/2022 Discontinued Comment on above: instill 1 spray into each nostril once daily Folic Acid (20 sources) End: 4 FOLIC ACID ORAL Take 800 mg by mouth once daily. With folate 1333 mg 12/23/2023 Discontinued End: 12-23-2023 FOLIC ACID ORAL Take 800 mg by mouth once daily. With folate 1333 mg 0 12/23/2023 Discontinued take 1 tablet by rashmi th once daily FOLIC ACID ORAL Take 1 tablet by mouth once daily. 0 Active FOLIC ACID ORAL Take by mouth once daily. 0 Active Comment on above: Take by mouth once d aily. Take 1 tablet by rashmi th once daily. Take 800 mg by mouth once daily. With folate 1333 mg 26.3 ml gemcitabine 38 mg/ml injection (2 sources) Nucleoside Metabolic Inhibitor Start: 06-15-2025 End: 06-15-2025 1,000 mg, INTRAVESICAL, ONCE, 1 dose, On Sat06/15/25 at 0730, Instill into bladder via catheter and retain for 90 minutes, followed by bladder drainage. EXP: Hazardous Chemotherapy Drug: Use appropriate PPE. Antineoplastic Irritant. Start: 05-13-2025 End: 05-13-2025 1,000 mg, INTRAVESICAL, ONCE , 1 dose, On Sat05/13/25 at 0730, Instill into bladder via catheter and retain for 90 minutes, followed by bladder drainage. EXP: Hazardous Chemotherapy Drug: Use appropriate PPE. Antineoplastic Irritant. ipratropium bromide 0.042 mg/actuat metered dose nasal spray (20 sources) Anticholinergic Start: 10-20-2022 End: 02-12-2025 ipratropium bromide (ATROVENT) 42 mcg (0.06 %) nasal spray Indications: PND (post-nasal drip) Use 2 Sprays in the nose four times daily. prn 15 mL 1 12/23/2023 02/12/2025 Discontinued (Patient chooses alternative therapy) Comment on above: Use 2 Sprays in the nose four times daily. Use 2 Sprays in the nose four times daily. prn lansoprazole 15 mg delayed release oral capsule (2 sources) Proton Pump Inhibitor Start: 05-24-2021 End: 01-18-2022 take 1 capsule by mouth once daily 30 minutes before breakfast lansoprazole (PREVACID) 15 mg capsule Take 1 capsule by mouth daily 30 minutes before breakfast. 30 capsule 5 05/24/2021 01/18/2022 Discontinued Comment on above: Take 1 capsule by [facility] daily 30 minutes before breakfast. lidocaine hydrochloride 0.02 mg/mg topical gel (3 sources) Antiarrhythmic, Amide Local Anesthetic Start: 06-15-2025 End: 06-15-2025 11 mL, OTHER, ONCE, 1 dose, On Sat06/15/25 at 0730, Intravesical administration Start: 05-13-2025 End: 05-13-2025 11 mL, OTHER, ONCE, 1 dose, On Sat05/13/25 at 0730, Intravesical administration Start: 02-09-2025 End: 02-09-2025 11 mL, OTHER, ONCE, 1 dose, On Sat02/09/25 at 0930, Intravesical administration linseed oil 1000 mg oral capsule (20 sources) End: 09-16-2023 take 1 capsule by mouth once daily flaxseed 1,000 mg cap Take 1 capsule by mouth once daily. 09/16/2023 Discontinued Comment on above: Take by mouth once d aily. Take 1 capsule by mo [facility] once daily. MULTIVITAMIN TAB (20 sources) Start: 01-10-2007 End: 12-23-2023 take 1 tablet by mouth once daily MULTIVITAMIN TAB Take 1 tablet by mouth once daily. 0 01/10/2007 12/23/2023 Discontinued Start: 01-10-2007 MULTIVITAMIN T AB Take one(1) tablet daily. 0 01/10/2007 Active Comment on above: Take one(1) tablet d aily. Take 1 tablet by rashmi th once daily. ofloxacin 3 mg/ml ophthalmic solution (5 sources) Quinolone Antimicrobial Start: 4 End: take 1 drop(s) into the eye(s) four times daily ofloxacin (OCUFLOX) 0.3 % ophthalmic solution Use 1 Drop in both eyes four times daily. Use after surgery 5 mL 2 03/27/2024 04/13/2024 Discontinued omega-3 fatty acids(FISH OIL 500 MG CAP) (20 sources) Start: 8 End: omega-3 fatty acids(FISH OIL 500 MG CAP) Take 1,200 mg by mouth two times a day. 0 01/19/2008 12/23/2023 Discontinued Start: 01-19-2008 omega-3 fatty acids(FISH OIL 500 MG CAP) Take two(2) capsule daily. 0 01/19/2008 Active Comment on above: Take two(2) capsule daily. Take 1,200 mg by rashmi th two times a day. 1000 ml sodium chloride 9 mg/ml injection (2 sources) Start: 01-06-2025 End: 01-06-2025 0.9 % sodium chloride (NACL 0.9%) infusion Administer at rate defined per CT contrast administration specifications. To be provided with radiology test. 150 mL 01/06/2025 01/06/2025 Problems Active Problems Problem Classification Problem Date Documented Date Episodic/Chronic Anxiety disorders (6 sources) Anxiety; Translations: [Other specified anxiety disorders] Onset: 07-02-2025 Chronic Asthma (20 sources) Mild intermittent asthma; Translations: [Mild intermittent asthma, uncomplicated] Onset: 08-09-2015 08-09-2015 Chronic Blindness and vision defects (4 sources) Bilateral regular astigmatism; Translations: [Regular astigmatism, bilateral] Onset: 05-06-2025 Episodic Cancer of bladder (7 sources) Malignant neoplasm, overlapping lesion of bladder; Translations: [Malignant neoplasm of overlapping sites of bladder] Onset: 04-26-2025 04-26-2025 Chronic Cancer of breast (20 sources) Malignant neoplasm of upper-outer quadrant of female breast; Translations: [Malignant neoplasm of upper-outer quadrant of right female breast] Onset: 09-05-2018 09-05-2018 Chronic Cardiac dysrhythmias (20 sources) Ventricular premature beats; Translations: [Ventricular premature depolarization] Onset: 09-03-2019 09-03-2019 Chronic Diabetes mellitus without complication (1 source) Hyperglycemia; Translations: [Hyperglycemia, unspecified] Episodic Diseases of white blood cells (3 sources) Leukopenia; Translations: [Decreased white blood cell count, unspecified] 06-15-2024 Chronic Disorders of lipid metabolism (11 sources) Mixed hyperlipidemia; Translations: [Mixed hyperlipidemia] Onset: 02-16-2025 Chronic Esophageal disorders (20 sources) Gastroesophageal reflux disease without esophagitis; Translations: [Gastro-esophageal reflux disease without esophagitis] Onset: 06-11-2019 06-11-2019 Chronic Headache; including migraine (2 sources) Pain in face; Translations: [Forehead pain] 06-18-2024 Episodic Immunizations and screening for infectious disease (1 source) Contact with and (suspected) exposure to other viral communicable diseases; Translations: [Contact with or exposure to other viral diseases] Episodic Osteoarthritis (20 sources) Osteoarthritis of left knee joint; Translations: [Unilateral primary osteoarthritis, left knee] Onset: 08-09-2015 08-09-2015 Chronic Other and ill-defined heart disease (1 source) Heart disease; Translations: [Heart disease, unspecified] Chronic Other circulatory disease (2 sources) Elevated blood pressure; Translations: [Elevated blood-pressure reading, without diagnosis of hypertension] 12-22-2024 Episodic Other connective tissue disease (1 source) Pain in left lower limb; Translations: [Pain in left leg] 03-09-2024 Episodic Other connective tissue disease (3 sources) Pain in right lower limb; Translations: [Pain in right lower leg] 03-26-2024 Episodic Other connective tissue disease (1 source) Neuralgia and neuritis, unspecified; Translations: [Neuropathic pain] Onset: 07-02-2025 Episodic Other diseases of bladder and urethra (1 source) Disorder of bladder; Translations: [Bladder disorders in diseases classified elsewhere] 01-06-2025 Chronic Other diseases of bladder and urethra (1 source) Bladder irritability; Translations: [Other specified disorders of bladder] 02-23-2025 Chronic Other diseases of bladder and urethra (1 source) Other specified disorders of bladder; Translations: [Bladder irritation] Onset: 02-23-2025 Chronic Other diseases of bladder and urethra (1 source) Bladder disorders in diseases classified elsewhere; Translations: [Bladder disorders in diseases classified elsewhere] Onset: 01-07-2025 Chronic Other diseases of bladder and urethra (2 sources) Urethral caruncle; Translations: [Urethral caruncle] Episodic Other eye disorders (6 sources) 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; Translations: [Nodular corneal degeneration, bilateral] Episodic Other eye disorders (3 sources) Disorder of lacrimal gland; Translations: [Dry eye syndrome of bilateral lacrimal glands] Episodic Other eye disorders (3 sources) Meibomian gland dysfunction of bilateral eyes; Translations: [Meibomian gland dysfunction right eye, upper and lower eyelids] Episodic Other eye disorders (1 source) Meibomian gland dysfunction right eye, upper and lower eyelids; Translations: [Meibomian gland dysfunction (MGD) of upper and lower lids of both eyes] Onset: 05-06-2025 Episodic Other eye disorders (1 source) Meibomian gland dysfunction left eye, upper and lower eyelids; Translations: [Meibomian gland dysfunction (MGD) of upper and lower lids of both eyes] Onset: 05-06-2025 Episodic Other eye disorders (1 source) Dry eye syndrome of bilateral lacrimal glands; Translations: [Dry eye syndrome of bilateral lacrimal glands] Onset: 05-06-2025 Episodic Other eye disorders (1 source) Nodular corneal degeneration, bilateral; Translations: [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] Onset: 05-06-2025 Episodic Other female genital disorders (1 source) Unspecified condition associated with female genital organs and menstrual cycle; Translations: [Unspecified condition associated with female genital organs and menstrual cycle] Onset: 12-28-2024 Episodic Other lower respiratory disease (1 source) Cough; Translations: [Cough] 03-28-2021 Episodic Other nervous system disorders (1 source) Paresthesia; Translations: [Paresthesia of skin] 09-03-2023 Episodic Other nervous system disorders (1 source) Postoperative pain ; Translations: [Other acute postprocedural pain] 04-06-2024 Episodic Other nervous system disorders (1 source) Numbness of hand; Translations: [Anesthesia of skin] 06-15-2024 Episodic Other nervous system disorders (2 sources) Paresthesia of lower extremity; Translations: [Paresthesia of skin] 06-18-2024 Episodic Other nervous system disorders (2 sources) Paresthesia of hand ; Translations: [Paresthesia of skin] 06-18-2024 Episodic Other non-epithelial cancer of skin (1 source) Basal cell carcinoma of skin of unspecified parts of face; Translations: [Facial basal cell cancer] Onset: 07-02-2025 Episodic Other non-traumatic joint disorders (1 source) Effusion of joint of left knee; Translations: [Effusion, left knee] Episodic Other non-traumatic joint disorders (1 source) Acute ankle pain; Translations: [Pain in left ankle and joints of left foot] Episodic Other screening for suspected conditions (not mental disorders or infectious disease) (20 sources) Cardiovascular stress test abnormal; Translations: [Abnormal result of other cardiovascular function study] Onset: 09-03-2019 09-03-2019 Episodic Other upper respiratory infections (5 sources) Acute maxillary sinusitis; Translations: [Acute maxillary sinusitis, unspecified] Onset: 07-27-2025 Episodic Prolapse of female genital organs (20 sources) Disorder of rectum; Translations: [Rectocele] Onset: 03-22-2023 Chronic Residual codes; unclassified (3 sources) Menopause present; Translations: [Asymptomatic menopausal state] Episodic Retinal detachments; defects; vascular occlusion; and retinopathy (7 sources) Bilateral macular hole of eyes; Translations: [Macular cyst, hole, or pseudohole, bilateral] Onset: 03-02-2025 Chronic Screening and history of mental health and substance abuse codes (5 sources) Patient encounter status; Translations: [Encounter for screening for depression] Onset: 07-02-2025 06-15-2024 Episodic Spondylosis; intervertebral disc disorders; other back problems (2 sources) Neck pain; Translations: [Cervicalgia] Episodic Unclassified (3 sources) Patient encounter status 01-07-2025 Past or Other Problems Problem Classification Problem Date Documented Da te Episodic/Chronic Administrative/social admission (1 source) Other specified counseling; Translations: [Cardiac risk counseling] Onset: 03-02-2025 Episodic Allergic reactions (20 sources) Allergic condition; Translations: [Allergy, unspecified, initial encounter] Onset: 04-26-2021 04-26-2021 Episodic Anal and rectal conditions (20 sources) Anorectal pain; Translations: [Other specified diseases of anus and rectum] Onset: 02-08-2017 Resolved: 09-20-2017 09-20-2017 Episodic Cancer of bladder (2 sources) H/O: malignant neoplasm; Translations: [Personal history of malignant neoplasm of bladder] Onset: 04-26-2025 04-26-2025 Episodic Cancer of breast (20 sources) History of malignant neoplasm of breast; Translations: [Personal history of malignant neoplasm of breast] Onset: 08-17-2024 08-16-2022 Episodic Cataract (20 sources) Bilateral pseudophakia; Translations: [Presence of intraocular lens] Onset: 04-01-2012 Resolved: 09-20-2017 09-20-2017 Chronic Conditions associated with dizziness or vertigo (2 sources) Lightheadedness; Translations: [Dizziness and giddiness] Onset: 07-01-2024 06-15-2024 Episodic Genitourinary symptoms and ill-defined conditions (10 sources) Blood in urine; Translations: [Hematuria, unspecified] Onset: 12-31-2024 12-22-2024 Episodic Menopausal disorders (20 sources) Atrophy of vagina; Translations: [Postmenopausal atrophic vaginitis] Onset: 06-22-2014 Resolved: 09-08-2019 06-03-2023 Chronic Neoplasms of unspecified nature or uncertain behavior (3 sources) Neoplasm of bladder; Translations: [Neoplasm of unspecified behavior of bladder] Onset: 01-07-2025 01-06-2025 Episodic Other aftercare (1 source) Encounter for follow-up examination after completed treatment for malignant neoplasm; Translations: [Encounter for follow-up surveillance of breast cancer] Onset: 02-12-2025 Episodic Other and unspecified benign neoplasm (20 sources) Senile angioma; Translations: [Hemangioma of skin and subcutaneous tissue] Onset: 08-07-2011 Resolved: 06-22-2014 06-22-2014 Episodic Other bone disease and musculoskeletal deformities (20 sources) Osteopenia; Translations: [Other specified disorders of bone density and structure, unspecified site] Onset: 07-28-2018 Episodic Other bone disease and musculoskeletal deformities (1 source) Other specified disorders of bone density and structure, unspecified site; Translations: [Osteopenia, unspecified location] Onset: 07-28-2018 Episodic Other circulatory disease (20 sources) Elevated blood-pressure reading without diagnosis of hypertension; Translations: [Elevated blood-pressure reading, without diagnosis of hypertension] Onset: 08-18-2019 08-18-2019 Episodic Other circulatory disease (1 source) Elevated blood-pressure reading, without diagnosis of hypertension; Translations: [Elevated blood pressure reading without diagnosis of hypertension] Onset: 08-18-2019 Episodic Other connective tissue disease (20 sources) Muscle weakness; Translations: [Muscle weakness (generalized)] Onset: 03-22-2023 Resolved: 12-23-2023 Episodic Other injuries and conditions due to external causes (1 source) Allergy, unspecified, subsequent encounter; Translations: [Allergy, subsequent encounter] Onset: 04-26-2021 Episodic Other non-traumatic joint disorders (20 sources) Pain in lower limb; Translations: [Pain in unspecified knee] Onset: 05-06-2012 Resolved: 09-20-2017 09-20-2017 Episodic Other skin disorders (20 sources) Solar lentigo; Translations: [Other melanin hyperpigmentation] Onset: 08-07-2011 Resolved: 06-22-2014 06-22-2014 Episodic Other skin disorders (20 sources) Seborrheic keratosis; Translations: [Other seborrheic keratosis] Onset: 08-07-2011 Resolved: 06-22-2014 06-22-2014 Episodic Other skin disorders (20 sources) Skin tag; Translations: [Other hypertrophic disorders of the skin] Onset: 08-07-2011 Resolved: 06-22-2014 06-22-2014 Episodic Residual codes; unclassified (1 source) Estrogen receptor positive status [ER+]; Translations: [Malignant neoplasm of upper-outer quadrant of right breast in female, estrogen receptor positive (HCC)] Onset: 09-05-2018 Episodic Results Test Name Value Interpretation Reference Range Facility [facility] 07-27-2025 CNOV Office Visit (FAMPWS ) ----- ANDRE LUTHER ([id number]) 1950 F Date Time Provider Department 07/27/25 10:20 AM IVETTE DIAZ During your visit today, we recorded the following information about you: Pulse Respiration Blood pressure 65/minute 16/minute 128/90 Ivette Diaz APRN.PLASTERING SUPERVISOR 07/27/2025 10:40 AM Signed Can start mucinex. Start augmentin. Push fluids. Warm compresses. Tylenol/ibuprofen as needed. Facts About the Common Cold and Upper Respiratory Infection: Common symptoms include: sore throat, tender lymph nodes, low grade fever 99-101F for first few days, watery nasal drip that progresses to thick yellow-green mucus on blowing and on coughing, facial/sinus pressure, headache, chest tightness and tiredness/ fatigue. Usually they peak with the worst symptoms about 5-7 days and take another 5-7 days to clear, in other words 10-14 days. Occasionally there will be a persistent nagging cough or some residual minor nasal congestion up to several weeks. Home going instructions for Upper Respiratory Infections In General: - Drink lots of fluids - at least one gallon of non-caffeinated liquids per day - Make sure you are eating well - Get plenty of rest - at least 8 hours of sleep per night for adults - ibuprofen 600mg every 8 hours as needed for discomfort - acetaminophen 500mg every 4-6 hours as needed for fever and discomfort. - may alternate ibuprofen and acetaminophen For nasal congestion try: -Vaporizers, Neti Pot, humidifiers, hot showers, and hot fluids help open respiratory and sinus passages. - [place] may offer relief of nasal and head congestion 2-3 times per day as needed. For Sore Throat try: - Salt water gargles every 2-3 hours as needed for discomfort - Chloraceptic spray or throat lozenges (Cepacol) For Cough and chest congestion try one of the following: - Mucinex or Robitussin are expectorants. You may take 200-400 mg every 4 hours to a not to exceed 2,400 mg/day OR Extended release tablet: 600-1200 mg every 12 hours, not to exceed 2,400 mg/day - Delsym is a cough suppressant: Oral: 10-20 mg every 4 hours or 30 mg every 6-8 hours OR Extended release: 60 mg twice daily; maximum: 120 mg/day - If you have high blood pressure or hypertension it is safe to take Coricidin? HBP Cough AND Cold. If you smoke it is advised that you quit smoking. CONTACT YOUR DOCTOR IF: You have fevers for longer than five days or a fever more than 102 degrees You are still sick after 10 days After several days you are getting worse rather than better 4. You develop nausea, vomiting, diarrhea, or a rash. Go to the ER if you - experience pressure or pain in your chest - experience difficulty swallowing - experience difficulty breathing Follow up in 7-10 days or before if your symptoms get worse. Ivette Diaz APRN.PLASTERING SUPERVISOR 07/27/2025 9:37 PM Signed This is a 75 year old female who presents today with: The patient is a 75-year-old female presenting for evaluation of presumed acute sinusitis. HISTORY OF PRESENT ILLNESS: Andre Luther is a 75-year-old female presenting with symptoms suggestive of a sinus infection. Sinus Infection: - Onset several weeks ago. - Intermittent headaches across the forehead, temporarily relieved by warm compresses. - Severe headache last night, extending under the eyes. - Persistent nasal congestion, causing mouth breathing at night. - Hoarseness when speaking over the past few weeks. - Sensation of fullness in the head. - Chronic cough due to postnasal drip, no recent changes. - Denies sore throat or otalgia. - Took Robitussin for a day or two, but no regular medication use for symptoms. - History of sinus infections, but not recently. - Recent travel plans to [place] on . PAST MEDICAL HISTORY: PAST MEDICAL HISTORY Diagnosis Date Asthma (HCC) Basal cell carcinoma 09/2024 nose Bladder cancer (HCC) Breast cancer (HCC) right s/p lumpectomy 08/2017, and radiation Macular cyst, hole, or pseudohole of retina Both eyes Osteopenia after menopause PVC (premature ventricular contraction) Shingles PAST SURGICAL HISTORY Procedure Laterality Date BREAST BIOPSY INCISIONAL RIGHT Right 07/2018 BREAST LUMPECTOMY HX Right 09/15/2018 Right NL PM/SNBx: [id number], ER/AR+, HER2 Neg, Grade 1, IDC w/tubular features; 1/2nodes COLONOSCOPY 07/2007, 01/14 nevus 1980 face. POST-CATARACT LASER SURGERY 06/26/2012 Yag Capsulotomy OS VITRECTOMY FOR MACULAR HOLE Left 06/06/2011 L eye. VITRECTOMY MECHANICAL PARS PLANA Right 02/20/2012 [place] Vitrectomy ,MP, PCIOL OD ALLERGIES Cephalosporins, Codeine, Dust, Nortriptyline, Ragweed, Doxycycline Hyclate, and Pyridium [Phenazopyridine] MEDICATIONS Current Outpatient Medications Medication Sig amoxicillin-clavulanate potassium (AUGMENTIN) 875-125 mg per t (more content not included)... Normal [facility] CYTOLOGY NON-GYNon 5 AP DISCLAIMER Normal [facility] Comment on above: Order Comment: Speci men Type: URINE SPECIMENOrdering Facility: [facility] Address: [address] [place] [address] Result Comment: Jessie Marx Test (LDT) Disclaimer: Performance characteristics of immunohistochemical, immunofluorescent, and chromogenic in-situ hybridization tests have been determined by the performing laboratory within the [facility] Department of Pathology and Laboratory Medicine ([facility], [facility], [facility], [facility], [facility], [facility], or [facility]) in a manner consistent with CLIA requirements. One or more of these tests may not have been cleared or approved by the FDA. The [facility] Department of Pathology and Laboratory Medicine is regulated under CLIA as qualified to perform high-complexity testing. These tests are used for clinical purposes. These should not be regarded as investigational or for research. Positive and negative controls stain appropriately. Performed By: #### C YTONON ####[facility] LABCLIA [id number] [place] [address] [place] CASE REPORT Normal [facility] Comment on above: Order Comment: Speci men Type: URINE SPECIMENOrdering Facility: [facility] Address: [address] [place] [address] Result Comment: [facility] Cytology Report Case: [id number] Authorizing Provider: Nikole Bailey MD Collected: 07/26/2025 10:39 AM Ordering Location: Urology Received: 07/26/2025 03:35 PM Pathologist: Juana Kinney MD Specimen: Urine, Midstream Performed By: #### C YTONON ####[facility] LABCLIA [id number] [place] [address] [place] CLINICAL HISTORY hx of bladder CA Normal [facility] Comment on above: Order Comment: Speci men Type: URINE SPECIMENOrdering Facility: [facility] Address: [address] [place] [address] Performed By: #### C YTONON ####[facility] LABCLIA [id number] [place] [address] [place] FINAL DIAGNOSIS Normal [facility] Comment on above: Order Comment: Speci men Type: URINE SPECIMENOrdering Facility: [facility] Address: [address] [place] [address] Result Comment: A - Urine, Midstream Negative for high-grade urothelial carcinoma. at 1446 EDT Performed By: #### C YTONON ####[facility] LABCLIA [id number] [place] [address] [place] FINAL PERFORMING LAB Normal [facility] Comment on above: Order Comment: Speci men Type: URINE SPECIMENOrdering Facility: [facility] Address: [address] [place] [address] Result Comment: Tech nical component, mantel craftsman screening performed at: [facility], [address] [place] [address] CLIA: [id number] Diagnostic interpretation performed at: [facility], [address] [address] CLIA# [id number] Lock Operator: Lana Fish MD Performed By: #### C YTONON ####[facility] LABCLIA [id number] [address] [place] GROSS DESCRIPTION Normal [facility] Comment on above: Order Comment: Speci men Type: URINE SPECIMENOrdering Facility: [facility] Address: [address] [place] [address] Result Comment: A. U rine, Midstream 70 cc clear light yellow fluid . ThinPrep prepared. Performed By: #### C YTONON ####[facility] LABCLIA [id number] [address] [place] CNOVon 07-15-2025 CNOV Office Visit (UROSMN ) ----- ANDRE LUTHER ([id number]) 1950 F Date Time Provider Department 07/15/25 11:00 AM NURSE UROL BLADDER INSTILLATIONUROSMN During your visit today, we recorded the following information about you: Gabbi Sainz RN 07/15/2025 12:52 PM Signed Andre Luther BLADDER INSTILLATION Patient ID with two (2) identifiers verified by: Gabbi Sainz RN Allergies reviewed and updated: Yes Medication ordered for bladder instillation: Gemzar and Taxotere Current pain intensity is: 0 on a 0-10 pain scale. Have you seen any blood in the last 24 hours: No Have you had a temperature greater than 101F in the last 24 hours: No Do you have foul smelling urine or severe burning/urgency that has worsened since the last bladder instillation treatment: No No, Proceed with Gemzar and Taxotere Any concerns about safety in the home/falls: Not at risk for falls Start Date: 05/13/25 Treatment number: Maintenance dose 3/3 Retention Time Last RX: 2 hours and 90 minutes Symptoms Post Last RX: None Pre VS: Temp: 97.4 F/, HR: 76, BP: 166/77, RR: 16, SpO2: 98% on RA Catheter Used: 14 fr. straight, placed using sterile technique, without any difficulty Balloon inflated with 5CC of sterile water 100 cc of clear clear urine drained Gemzar instilled at: 1104, corley clamped and drainage bag attached Drained at : 1230, unclamped to drain Residual TX: Yes 250 cc. Taxotere instilled at: 1244, corley clamped and drainage bag attached Urinate at home: : 1444, unclamped to drain. Balloon deflated and corley removed without difficulty. Post VS: , HR: 74, BP: 170/84, RR: 16, SpO2: 97% on RA Return to Clinic on : for cystoscopy Patient tolerated treatment well. Gabbi Sainz RN Referring Provider: NIKOLE BAILEY [[id number]] Allergies As of Date: 07/15/2025 Noted Allergy Reaction CEPHALOSPORINS 01/19/2008 2 - Rash CODEINE 01/10/2007 8 - GI Upset DUST 01/13/2007 9 - Itching NORTRIPTYLINE 10/24/2020 5 - Intolerance Comments: Elevated blood pressure and pulse. RAGWEED 01/13/2007 DOXYCYCLINE HYCLATE 04/01/2018 5 - Intolerance Comments: Reflux PYRIDIUM (PHENAZOPYRIDINE) 09/03/2019 14 - Other: See Comments Comments: dizziness Date Reviewed: 07/15/2025 Reviewed by: Gabbi Sainz RN - Fully Assessed Primary Visit Diagnosis:Malignant neoplasm of overlapping sites of bladder (HCC) [C67.8] Order(s):[] lidocaine urojet 2 % 11 mL topical gel (GLYDO)Disp: Rfl: [] gemcitabine 1,000 mg intravesical (GEMZAR)Disp: Rfl: [] DOCEtaxel 37.5 mg in NaCl (PF) 0.9% 50 mL (TAXOTERE)Disp: Rfl: Prescriptions as of 07/15/2025 - rosuvastatin (CRESTOR) 10 mg tablet Take 1 tablet by mouth daily at bedtime. - gabapentin (NEURONTIN) 100 mg capsule Two capsules (200mg) by mouth every morning. - gabapentin (NEURONTIN) 300 mg capsule Take 1 capsule by mouth daily at bedtime for 180 days. - albuterol HFA (VENTOLIN HFA) 90 mcg/actuation inhaler Inhale 2 Puffs as instructed every 4 hours as needed. - Cholecalciferol, Vitamin D3, 125 mcg (5,000 unit) cap Take 1 capsule by mouth once daily. - carboxymethylcellulose sodium (REFRESH OPHTHALMIC) Use 1 Drop in eyes as needed. - propylene glycol (SYSTANE COMPLETE OPHTHALMIC) Use 1 Drop in eyes as needed. - psyllium husk (METAMUCIL ORAL) Take 1 teaspoonful by mouth two times a day. - calcium carbonate (CALCIUM 600 ORAL) Take 600 mg by mouth once daily. - vit A,C,J-Cmfg-Rvnaem (PRESERVISION AREDS) 7,160-113-100 zywc-ji-ocdc tab Take 1 tablet by mouth twice daily. - Wgyz-Gevp-JYU#1-C-Morris-Sukhi s-Bor (OSTEO BI-FLEX) 750-625-30 mg Tab Take 1 tablet by mouth twice daily. Meds Comments as of 04/01/2018: Preservision bid Problem List As Of Date 07/15/2025 Noted Resolved Solar Lentigines [L81.4] 08/07/2011 06/22/2014 Seborrheic Keratosis [L82.1] 08/07/2011 06/22/2014 Nobles Angiomas [D18.01] 08/07/2011 06/22/2014 Cutaneous skin tags [L91.8] 08/07/2011 06/22/2014 Bilateral pseudophakia [Z96.1] 04/01/2012 09/20/2017 Pain in joint, lower leg [M25.569] 05/06/2012 09/20/2017 PCO (posterior capsular opacification), left [H*06/26/2012 09/20/2017 After-cataract, obscuring vision [H26.499] 04/20/2014 09/20/2017 Postmenopausal atrophic vaginitis [N95.2] 06/22/2014 09/08/2019 Primary osteoarthritis of left knee [M17.12] 08/09/2015 Mild intermittent asthma without complication [*08/09/2015 Anal or rectal pain [K62.89] 02/08/2017 09/20/2017 Osteopenia [M85.80] 07/28/2018 Malignant neoplasm of upper-outer quadrant of r*09/05/2018 GERD without esophagitis [K21.9] 06/11/2019 Elevated blood pressure reading without diagnos*08/18/2019 PVC (premature ventricular contraction) [I49.3] 09/03/2019 Abnormal stress test [R94.39] 09/03/2019 07/02/2025 Allergy [T78.40XA] 04/26/2021 Rectocele [N81.6] 03/22/2023 Cystocele, midline [N81.11] more content not included)... Normal [facility] 07[facility]02[facility]2025 [facility] ----- ANDRE LUTHER ([id number]) 1950 F Date Time Provider Department 07/02/25 9:40 AM [facility] During your visit today, we recorded the following information about you: Pulse Blood pressure Weight Height 82/minute 122/72 64.9 kg 1.54 m Abhishek Huynh MD 07/02/2025 1:05 PM Signed Andre Luther is a 75 year old female here for a Medicare wellness visit. Medicare Health Risk Assessment General Health Very good Exercise: Minutes/Day 10 min Exercise: Days/Week 1 day Alcohol: Daily Use Never Alcohol: Drinks/Day Patient does not drink Alcohol: 6 or more drinks Never Feel off balance No Concerns: Teeth/Dentures No Concerns: Sexual function No Troubled by feelings Stressed Frequency: Eating healthy diet Several days ADLs requiring help None of the above Safety precautions in home/vehicle Yes Smoke, vape, chews tobacco No Difficulty hearing No Difficulty seeing No Current Providers Specialists: I have reviewed specialist-related care of the patient in the medical record. Current care team: Patient Care Team: Abhishek Huynh MD as PCP - General (Family Medicine) Ivette Diaz, NARDA.PLASTERING SUPERVISOR as Ortho Rn (Family Medicine) Kim Browning APRN.VALERY as Ortho Rn (Family Medicine) Dr Brown, optho Dr Gonzales optemetry. Dr Her, onc Dr Agrawal, ENT Dr Bailey, urology. Dr Randall and Mariah, derm Medical/Family history review Reviewed and updated problem list, medical/surgical/family/s ocial history, medications, and allergies. Opioid use review Opioid Medications (last 90 days) No data to display Anxiety/Depression screening (Lower risk for depression) ZIA-2 Score: 0 Recommendation: no further intervention at this time Cognitive screening Mini Cog Score: 5 Cognitive screening reviewed and No further action needed (score 3-5). Functional Observation Was the patient's Timed Up AND Go test unsteady or >= 12 seconds? No Advance Care Planning Surrogate decision maker and/or advance care plan documented Measurements BP 122/72 Pulse 82 Ht 154 cm (5' 0.63) Wt 64.9 kg (143 lb) SpO2 99% BMI 27.35 kg/m? Vision Screening: Follows with optometry/ophthalmology ADDITIONAL INFO: Annual Wellness Exam: - Describes general health as very good. - Exercises ~10 minutes/day, 1 day/week; decreased since November due to cancer treatments. - Denies alcohol use, balance issues, dental issues, or sexual dysfunction. - No concerns with hearing; wears glasses, but vision is pretty good. - Follows safety precautions at home and in vehicle. - Denies smoking, vaping, or chewing tobacco. - No ear, eye, mouth, neck, or chest pain. - No palpitations, syncope, or edema. - No unusual skin rashes or moles. - No issues with ADLs. - No concerns about depression; minimal anxiety, managed with lorazepam 0.5 mg once a month. - Nocturnal diaphoresis x1 month; questions if chemotherapy is the cause. - Ingested a small piece of plastic fork on Saturday; no abdominal pain, nausea, or emesis since. Bladder Cancer: - Diagnosed early, not yet stage 1; initially treated with surgery and chemotherapy. - Underwent 3 months of BCG immunotherapy; currently cancer-free. - Due to BCG shortage, transitioned to intravesical chemotherapy; completed 2 treatments, 1 remaining in June. - Experiences mild fatigue on treatment days, resolves by the next day. - Scheduled for another cystoscopy at the end of June. - High-risk cancer; treatment duration may extend up to 3 years. - Followed by Dr. Bailey (urology) and Radha Her (oncology). Breast Cancer: - History of breast cancer; followed by Radha Her (oncology). - Neuropathic pain in arm post-breast surgery, managed with gabapentin. Asthma: - Carries inhaler for security; uses occasionally in heat or during physical activity. - Denies significant breathing issues. GERD: - Well-controlled. Osteopenia: - Last DEXA scan in December 2023. Basal Cell Carcinoma: - Had a basal cell carcinoma removed from the nose by Dr. Randall and Dr. Wong (dermatology). - Undergoes biannual dermatological checks. ROS: PE: General: Alert, well-developed, no acute distress. Neck: No JVD. No carotid bruit. Lungs: Respirations unlabored, clear to auscultation, no wheezes, rales or rhonchi, symmetric air entry. Heart: Regular rate and regular rhythm, S1 and S2 normal, no murmur, no rub or gallop. Abdomen: Soft, non-tender, bowel sounds positive. Extremities: No edema. Pulses: 2+ symmetric radial pulse. Skin: Warm and dry, no unusual skin rashes or moles noted. A history of basal cell carcinoma on the nose, treated with Mohs surgery, with no current lesions observed. Assessment and Plan: 1. Medicare annual wellness visit, subsequent (Z00.00) - Completed annual wellness visi (more content not included)... [facility] HOMAANDRE Sharpe ([id number]) 1950 F Date Time Provider Department 06/21/25 ABHISHEK HUYNH During your visit today, we recorded the following information about you: Esthela Ludwig, HUE 06/21/2025 1:35 PM Signed Pt reports all of the pharmacies are giving the covid vaccine now. Pt asking pcp if you think she should get one? Abhishek Huynh MD 06/21/2025 2:03 PM Signed I would recommend she continue to receive it. Esthela Ludwig RN 06/21/2025 2:43 PM Signed Notified patient. Allergies As of Date: 06/21/2025 Noted Allergy Reaction CEPHALOSPORINS 01/19/2008 2 - Rash CODEINE 01/10/2007 8 - GI Upset DUST 01/13/2007 9 - Itching NORTRIPTYLINE 10/24/2020 5 - Intolerance Comments: Elevated blood pressure and pulse. RAGWEED 01/13/2007 DOXYCYCLINE HYCLATE 04/01/2018 5 - Intolerance Comments: Reflux PYRIDIUM (PHENAZOPYRIDINE) 09/03/2019 14 - Other: See Comments Comments: dizziness Date Reviewed: 05/13/2025 Reviewed by: Gabbi Sainz, HUE - Fully Assessed Reason for Visit: Covid vaccine question [Other] Prescriptions as of 06/21/2025 - rosuvastatin (CRESTOR) 10 mg tablet Take 1 tablet by mouth daily at bedtime. - trospium (SANCTURA) 20 mg tablet Take 1 tablet by mouth two times a day. - gabapentin (NEURONTIN) 100 mg capsule Two capsules (200mg) by mouth every morning. - gabapentin (NEURONTIN) 300 mg capsule Take 1 capsule by mouth daily at bedtime for 180 days. - albuterol HFA (VENTOLIN HFA) 90 mcg/actuation inhaler Inhale 2 Puffs as instructed every 4 hours as needed. - Cholecalciferol, Vitamin D3, 125 mcg (5,000 unit) cap Take 1 capsule by mouth once daily. - carboxymethylcellulose sodium (REFRESH OPHTHALMIC) Use 1 Drop in eyes as needed. - propylene glycol (SYSTANE COMPLETE OPHTHALMIC) Use 1 Drop in eyes as needed. - Azelastine HCl (OPTIVAR) 0.05 % ophthalmic solution Use 1 Drop in both eyes twice daily as needed (allergies). - psyllium husk (METAMUCIL ORAL) Take 1 teaspoonful by mouth two times a day. - calcium carbonate (CALCIUM 600 ORAL) Take 600 mg by mouth once daily. - vit A,C,V-Tkyt-Rykjnt (PRESERVISION AREDS) 7,160-113-100 npfi-bb-okng tab Take 1 tablet by mouth twice daily. - Oewj-Qeyo-ALQ#1-C-Morris-Sukhi s-Bor (OSTEO BI-FLEX) 750-625-30 mg Tab Take 1 tablet by mouth twice daily. Meds Comments as of 04/01/2018: Preservision bid Problem List As Of Date 06/21/2025 Noted Resolved Solar Lentigines [L81.4] 08/07/2011 06/22/2014 Seborrheic Keratosis [L82.1] 08/07/2011 06/22/2014 Nobles Angiomas [D18.01] 08/07/2011 06/22/2014 Cutaneous skin tags [L91.8] 08/07/2011 06/22/2014 Bilateral pseudophakia [Z96.1] 04/01/2012 09/20/2017 Pain in joint, lower leg [M25.569] 05/06/2012 09/20/2017 PCO (posterior capsular opacification), left [H*06/26/2012 09/20/2017 After-cataract, obscuring vision [H26.499] 04/20/2014 09/20/2017 Postmenopausal atrophic vaginitis [N95.2] 06/22/2014 09/08/2019 Primary osteoarthritis of left knee [M17.12] 08/09/2015 Mild intermittent asthma without complication [*08/09/2015 Anal or rectal pain [K62.89] 02/08/2017 09/20/2017 Osteopenia [M85.80] 07/28/2018 Malignant neoplasm of upper-outer quadrant of r*09/05/2018 GERD without esophagitis [K21.9] 06/11/2019 Elevated blood pressure reading without diagnos*08/18/2019 PVC (premature ventricular contraction) [I49.3] 09/03/2019 Abnormal stress test [R94.39] 09/03/2019 Allergy [T78.40XA] 04/26/2021 Rectocele [N81.6] 03/22/2023 Cystocele, midline [N81.11] 03/22/2023 Muscle weakness [M62.81] 03/22/2023 12/23/2023 Personal history of malignant neoplasm of breas*08/17/2024 Malignant neoplasm of overlapping sites of blad*04/26/2025 Encounter Status:Closed by Esthela LUDWIG on 06/21/25 [facility] CNOVon 06-15-2025 CNOV Office Visit ([facility] ) ----- ANDRE LUTHER ([id number]) 1950 F Date Time Provider Department 06/15/25 2:00 PM NURSE UROL [facility] During your visit today, we recorded the following information about you: Blank Healy RN 06/15/2025 3:48 PM Signed Andre Luther BLADDER INSTILLATION Patient ID with two (2) identifiers verified by: Blank Healy RN Allergies reviewed and updated: Yes Medication ordered for bladder instillation: Gemzar and Taxotere Current pain intensity is: 0 on a 0-10 pain scale. Have you seen any blood in the last 24 hours: No Have you had a temperature greater than 101F in the last 24 hours: No Do you have foul smelling urine or severe burning/urgency that has worsened since the last bladder instillation treatment: No No, Proceed with Gemzar and Taxotere Any concerns about safety in the home/falls: Not at risk for falls Start Date: 05/13/25 Treatment number: Maintenance dose 2/3 Retention Time Last RX: 90mins 2 hours Symptoms Post Last RX: Malaise for a day Pre VS: Temp: 98.2f, HR: 87, BP: 175/83, RR: 16, SpO2: 96% on RA Catheter Used: 14 fr. Coude straight, placed using sterile technique, without any difficulty. Administered Lidocaine. Lowered HOB. Balloon inflated with 5CC of sterile water 30 cc of yellow clear urine drained Gemzar instilled at: 1354, corley clamped and drainage bag attached Drained at : 1524, unclamped to drain Residual TX: Yes 120 cc. Taxotere instilled at: 1540 Urinate at home: : 1740 Balloon deflated and corley removed without difficulty Cleaned and dried Return to Clinic on : Next month for bladder instillation Patient tolerated treatment well. Blank Healy RN Referring Provider: NIKOLE BAILEY [[id number]] Allergies As of Date: 06/15/2025 Noted Allergy Reaction CEPHALOSPORINS 01/19/2008 2 - Rash CODEINE 01/10/2007 8 - GI Upset DUST 01/13/2007 9 - Itching NORTRIPTYLINE 10/24/2020 5 - Intolerance Comments: Elevated blood pressure and pulse. RAGWEED 01/13/2007 DOXYCYCLINE HYCLATE 04/01/2018 5 - Intolerance Comments: Reflux PYRIDIUM (PHENAZOPYRIDINE) 09/03/2019 14 - Other: See Comments Comments: dizziness Date Reviewed: 05/13/2025 Reviewed by: Gabbi Sainz RN - Fully Assessed Reason for Visit: Bladder Instillation Treatment [348] Primary Visit Diagnosis:Malignant neoplasm of overlapping sites of bladder (HCC) [C67.8] Order(s):[] lidocaine urojet 2 % 11 mL topical gel (GLYDO)Disp: Rfl: [] gemcitabine 1,000 mg intravesical (GEMZAR)Disp: Rfl: [] DOCEtaxel 37.5 mg in NaCl (PF) 0.9% 50 mL (TAXOTERE)Disp: Rfl: Prescriptions as of 06/15/2025 - rosuvastatin (CRESTOR) 10 mg tablet Take 1 tablet by mouth daily at bedtime. - trospium (SANCTURA) 20 mg tablet Take 1 tablet by mouth two times a day. - gabapentin (NEURONTIN) 100 mg capsule Two capsules (200mg) by mouth every morning. - gabapentin (NEURONTIN) 300 mg capsule Take 1 capsule by mouth daily at bedtime for 180 days. - albuterol HFA (VENTOLIN HFA) 90 mcg/actuation inhaler Inhale 2 Puffs as instructed every 4 hours as needed. - Cholecalciferol, Vitamin D3, 125 mcg (5,000 unit) cap Take 1 capsule by mouth once daily. - carboxymethylcellulose sodium (REFRESH OPHTHALMIC) Use 1 Drop in eyes as needed. - propylene glycol (SYSTANE COMPLETE OPHTHALMIC) Use 1 Drop in eyes as needed. - Azelastine HCl (OPTIVAR) 0.05 % ophthalmic solution Use 1 Drop in both eyes twice daily as needed (allergies). - psyllium husk (METAMUCIL ORAL) Take 1 teaspoonful by mouth two times a day. - calcium carbonate (CALCIUM 600 ORAL) Take 600 mg by mouth once daily. - vit A,C,M-Rcuk-Uaoazg (PRESERVISION AREDS) 7,160-113-100 yfuh-vi-rwyn tab Take 1 tablet by mouth twice daily. - Sduo-Ovxi-DJV#1-C-Morris-Sukhi s-Bor (OSTEO BI-FLEX) 750-625-30 mg Tab Take 1 tablet by mouth twice daily. Meds Comments as of 04/01/2018: Preservision bid Problem List As Of Date 06/15/2025 Noted Resolved Solar Lentigines [L81.4] 08/07/2011 06/22/2014 Seborrheic Keratosis [L82.1] 08/07/2011 06/22/2014 Nobles Angiomas [D18.01] 08/07/2011 06/22/2014 Cutaneous skin tags [L91.8] 08/07/2011 06/22/2014 Bilateral pseudophakia [Z96.1] 04/01/2012 09/20/2017 Pain in joint, lower leg [M25.569] 05/06/2012 09/20/2017 PCO (posterior capsular opacification), left [H*06/26/2012 09/20/2017 After-cataract, obscuring vision [H26.499] 04/20/2014 09/20/2017 Postmenopausal atrophic vaginitis [N95.2] 06/22/2014 09/08/2019 Primary osteoarthritis of left knee [M17.12] 08/09/2015 Mild intermittent asthma without complication [*08/09/2015 Anal or rectal pain [K62.89] 02/08/2017 09/20/2017 Osteopenia [M85.80] 07/28/2018 Malignant neoplasm of upper-outer quadrant of r*09/05/2018 GERD without esophagitis [K21.9] 06/11/2019 Elevated blood pressure reading without diagnos*08/18/2019 PVC (premature ventricula (more content not included)... Normal [facility] CNOVon 05-13-2025 CNOV Office Visit ([facility] ) ----- ANDRE LUTHER ([id number]) 1950 F Date Time Provider Department 05/13/25 8:00 AM NURSE UROL BLADDER INSTILLATIONUROSMN During your visit today, we recorded the following information about you: Gabbi Sainz RN 05/13/2025 10:42 AM Signed AMBULATORY PATIENT EDUCATION TOPIC: CHEMOTHERAPY: gemzar and taxotere READINESS TO LEARN COGNITIVE ABILITY: Alert and oriented MOTIVATION TO LEARN: Eager FAMILY SUPPORT: High - Very involved in pt care INSTRUCTION PROVIDED TO: Patient PATIENT LEARNS BEST BY: Individual Instruction Written Instruction - Hand-outs Verbal Instruction FACTORS AFFECTING LEARNING: None PHYSICAL LIMITATIONS AFFECTING LEARNING: None LEARNING RESPONSE DIAGNOSIS: bladder cancer METHOD OF INSTRUCTION: Individual instruction Written instruction/Handouts Verbal instruction PATIENT / FAMILY RESPONSE: Verbalizes understanding of: CHEMOTHERAPY-Regimen, toxicity and side effects INFECTION MANAGEMENT-Signs and symptoms of an infection and importance of contacting the physician MEDICAL REGIMEN-Importance of following prescribed medical regimen MEDICATION ROUTE-Correct route for administration of the prescribed medication MEDICATION SIDE EFFECTS-Side effects associated with the medication that warrant a call to the physician FOLLOW-UP PLAN: Complete - No need for follow-up SUPPLEMENTAL MATERIAL: gemzar and taxotere handout REFERRAL (RECOMMENDATION): None Electronically Signed By Gabbi Sainz RN In Department: UROLOGY BLADDER INSTILLATION Patient ID with two (2) identifiers verified by: Gabbi Sainz RN Allergies reviewed and updated: Yes Medication ordered for bladder instillation: Gemzar and Taxotere Current pain intensity is: 0 on a 0-10 pain scale. Have you seen any blood in the last 24 hours: No Have you had a temperature greater than 101F in the last 24 hours: No Do you have foul smelling urine or severe burning/urgency that has worsened since the last bladder instillation treatment: No Any concerns about safety in the home/falls: Not at risk for falls BP 162/78, pulse 72 Temp 36.5 C Start Date: 05/13/25 Treatment number: Maintenance dose / Catheter Used: 14 fr. Ocrley, drained 100 cc of clear yellow urine Gemzar instilled at: 0845, clamped corley catheter Patient had some leaking, changed pads, cleaned skin and lowered the head of the bed Drained at: 1015 Residual TX: Yes 100 cc, Taxotere instilled at 1026, Deflated balloon and discontinued corley catheter Patient to urinate in 2 hours at home. Return to Clinic on : monthly Patient tolerated treatment well. Gabbi Sainz RN Referring Provider: NIKOLE BAILEY [[id number]] Allergies As of Date: 05/13/2025 Noted Allergy Reaction CEPHALOSPORINS 01/19/2008 2 - Rash CODEINE 01/10/2007 8 - GI Upset DUST 01/13/2007 9 - Itching NORTRIPTYLINE 10/24/2020 5 - Intolerance Comments: Elevated blood pressure and pulse. RAGWEED 01/13/2007 DOXYCYCLINE HYCLATE 04/01/2018 5 - Intolerance Comments: Reflux PYRIDIUM (PHENAZOPYRIDINE) 09/03/2019 14 - Other: See Comments Comments: dizziness Date Reviewed: 05/13/2025 Reviewed by: Gabbi Sainz RN - Fully Assessed Primary Visit Diagnosis:Malignant neoplasm of upper-outer quadrant of right breast in female, estrogen receptor positive (HCC) [C50.411, Z17.0] Other Visit Diagnosis:Malignant neoplasm of overlapping sites of bladder (HCC) [C67.8] Order(s):lidocaine urojet 2 % 11 mL topical gel (GLYDO)Disp: Rfl: bcg (PANCHO BCG) 50 mg in NaCl (PF) 0.9% 50 mLDisp: Rfl: [] lidocaine urojet 2 % 11 mL topical gel (GLYDO)Disp: Rfl: [] gemcitabine 1,000 mg intravesical (GEMZAR)Disp: Rfl: [] DOCEtaxel 37.5 mg in NaCl (PF) 0.9% 50 mL (TAXOTERE)Disp: Rfl: Prescriptions as of 05/13/2025 - rosuvastatin (CRESTOR) 10 mg tablet Take 1 tablet by mouth daily at bedtime. - trospium (SANCTURA) 20 mg tablet Take 1 tablet by mouth two times a day. - gabapentin (NEURONTIN) 100 mg capsule Two capsules (200mg) by mouth every morning. - gabapentin (NEURONTIN) 300 mg capsule Take 1 capsule by mouth daily at bedtime for 180 days. - albuterol HFA (VENTOLIN HFA) 90 mcg/actuation inhaler Inhale 2 Puffs as instructed every 4 hours as needed. - Cholecalciferol, Vitamin D3, 125 mcg (5,000 unit) cap Take 1 capsule by mouth once daily. - carboxymethylcellulose sodium (REFRESH OPHTHALMIC) Use 1 Drop in eyes as needed. - propylene glycol (SYSTANE COMPLETE OPHTHALMIC) Use 1 Drop in eyes as needed. - Azelastine HCl (OPTIVAR) 0.05 % ophthalmic solution Use 1 Drop in both eyes twice daily as needed (allergies). - psyllium husk (METAMUCIL ORAL) Take 1 teaspoonful by mouth two times a day. - calcium carbonate (CALCIUM 600 ORAL) Take 600 mg by mouth once daily. - vit A,C,O-Hksf-Gbynzl (PRESERVISION AREDS) 7,160-113-100 unit-mg-un (more content not included)... Normal [facility] CNOVon 04-26-2025 CNOV Office Visit ([facility] ) ----- ANDRE LUTHER ([id number]) 1950 F Date Time Provider Department 04/26/25 11:00 AM NIKOLE BAILEY During your visit today, we recorded the following information about you: Mariana Gray MA 04/26/2025 11:15 AM Signed Patient ID with (2) Identifiers, Verified by: Mariana Gray MA Actual procedure/procedure scheduled: Yes Performing provider/scheduled provider: Yes Patient was roomed in: Q9- 08 Activity Leader offered:Patient declines Patient arrived in the room at: 1040 Patient ready for procedure: 1052 The procedure started at ( Time Only): 1100 The procedure ended at: 1105 Was the procedure delayed: No ProNox Utilized: No The patient left the procedure room at: 1112 Mariana Gray MA PRE PROCEDURE ASSESSMENT- Cysto Latex Allergy: No Allergies reviewed and updated. Yes Pre-Procedure Vital Signs: BP: 158/77 Pulse: 82 Heart valve replacement: No Joint replacement: No Back Office UA otained: yes PROCEDURE PREP-Cysto Patient Prep: Betadine Placement of Sterile Drape: COMPLETED Anesthetic Given:Administered by MD - see Procedure Physician Note. Mariana Gray MA POST PROCEDURE NURSE ASSESSMENT Present along with physician during procedure exam. Mariana Gray MA Current pain intensity is 0 on a 0-10 pain scale. Mariana Gray MA AMBULATORY PATIENT EDUCATION THE FOLLOWING WAS EVALUATED Motivation To Learn: Interested Family/Significant Other Support: Unable to assess - Family not present Cognitive Ability: Alert/Oriented Method of Instruction: Individual instruction The Following Influencing Factors Were Barriers To This Education Session: None The Following Physical Limitations Were Barriers To This Education Session: None Instruction Provided To: Patient Brewing Director Present: not applicable Discipline: Nursing Learning Topic: SURVIVAL SKILLS: Symptom Management Patient Evaluation: Verbalizes understanding: Yes Supplemental Material Given: Written Material Instructed By Mariana Gray MA In Department Urology . UNIVERSAL PROTOCOL / SAFETY CHECKLIST Procedure to be Performed: Cystoscopy Sign In: A Moment of CARE was completed. Appropriate PPE (Personal Protective Equipment) worn by all providers involved with the procedure. Special equipment not required. Patient/Surrogate Stated/Verified: Patient name, Date of , Relevant allergies, and The intended procedure Time Out: Relevant labs, photos, and/or imaging studies have been reviewed. Intended patient and procedure match the source document(s) (e.g. consent, HANDP, associated studies [imaging, pathology]) match the intended patient and procedure. Consent obtained and matches the intended procedure. Yes. Correct side/site is not applicable. Medications required for this procedure are verified. Fire risk assessed and interventions discussed. Implants: are not applicable. Sign Out: Specimens are all correctly labeled and sent. All instruments, equipment, possible retained foreign bodies are accounted for. Yes. The post-procedure plan of care has been communicated to the patient or surrogate. Nikole Bailey MD 04/26/2025 11:21 AM Signed PROCEDURE NOTE: PREOPERATIVE DIAGNOSIS: TaHG 01.18.25 iBCG completed 03.19.25 POSTOPERATIVE DIAGNOSIS: Same OPERATION: Flexible Cystourethroscopy SURGEON: Nikole Bailey MD ANESTHESIA: 2% lidocaine jelly COMPLICATIONS: None EBL: Minimal SPECIMEN: Voided urine was collected and submitted for cytology. DISPOSITION: The patient was discharged home after the procedure, per routine. INDICATIONS: : Ms. Luther is a 75 year old patient with a history of TaHG who presents today for Cystoscopy. The indications, risks and benefits of this procedure were discussed with the patient, consent was obtained prior to the procedure, and to the best of my judgement the patient seemed to understand and agree to the procedure. PROCEDURE: The patient was brought into the procedure suite and informed consent was reviewed and confirmed. Vital signs were obtained prior to the procedure: There were no vitals taken for this visit.. The patient was escorted onto the stretcher, placed supine and froglegged, prepped with betadine and draped in the usual standard surgical fashion. Intraurethral 2% viscous lidocaine jelly was used for local analgesia. A 16 Taiwanese flexible cystourethroscope was inserted into the urethra. Upon entering the bladder the entire bladder was surveyed in a 360 degree fashion. The left and right ureteral orifices were in normal orthotopic position effluxing clear yellow urine, bilaterally. There was no evidence of any bladder lesions, foreign objects, stones or evidence of any mucosal changes. The cystoscope was then retroflexed. The bladder neck was then further exami (more content not included)... [facility] CYTOLOGY NON-GYNon 5 AP DISCLAIMER [facility] Comment on above: Order Comment: Speci men Type: URINE SPECIMENOrdering Facility: [facility] Address: [address] [place] [address] Result Comment: Jessie wilks Developed Test (LDT) Disclaimer: Performance characteristics of immunohistochemical, immunofluorescent, and chromogenic in-situ hybridization tests have been determined by the performing laboratory within [facility]'s [facility] Pathology and Laboratory Medicine Department ([facility], [facility], [facility], [facility], [facility], [facility], or [facility]) in a manner consistent with CLIA requirements. One or more of these tests may not have been cleared or approved by the FDA. [facility] is regulated under CLIA as qualified to perform high-complexity testing. These tests are used for clinical purposes. These should not be regarded as investigational or for research. Positive and negative controls stain appropriately. Performed By: #### C YTONON ####[facility] CHERRY HILLIA [id number] [address] LABIA [id number] [place] [address] [place] CASE REPORT [facility] Comment on above: Order Comment: Speci men Type: URINE SPECIMENOrdering Facility: [facility] Address: [address] [place] [address] Result Comment: [facility] Cytology Report Case: [id number] Authorizing Provider: Nikole Bailey MD Collected: 04/26/2025 11:10 AM Ordering Location: Urology Received: 04/26/2025 03:21 PM Pathologist: Lana Fish MD Specimen: Urine, Midstream Performed By: #### C YTONON ####[facility]AT[facility] [id number] [address] LABIA [id number] [place] [address] [place] CLINICAL HISTORY history of bladder cancer [facility] Comment on above: Order Comment: Speci men Type: URINE SPECIMENOrdering Facility: [facility] Address: [address] [place] [address] Performed By: #### C YTONON ####[facility] [id number] [address] STATES [facility] LABCLIA [id number] [address] [place] [address] [place] FINAL DIAGNOSIS [facility] Comment on above: Order Comment: Speci men Type: URINE SPECIMENOrdering Facility: [facility] Address: [address] [place] [address] Result Comment: A - Urine, Midstream Negative for high-grade urothelial carcinoma. at 0721 EDT Performed By: #### C YTONON ####[facility]ATORYCLIA [id number] [address] LABCLIA [id number] [address] [place] FINAL PERFORMING LAB Normal [facility] Comment on above: Order Comment: Speci men Type: URINE SPECIMENOrdering Facility: [facility] Address: [address] [place] [address] Result Comment: Tech nical component, mantel craftsman screening performed at: [facility], [address] [place] [address] CLIA: [id number] Diagnostic interpretation performed at: [facility], [address] [place] [address] [place] [facility] CLIA# [id number] Lock Operator: Justyn Morfin MD Performed By: #### C YTONON ####[facility]ORATORYCLIA [id number] [address] LABCLIA [id number] [place] [address] [place] GROSS DESCRIPTION Normal [facility] Comment on above: Order Comment: Speci men Type: URINE SPECIMENOrdering Facility: [facility] Address: [address] [place] [address] Result Comment: A. U rine, Midstream 60 cc clear yellow fluid . ThinPrep prepared. Performed By: #### C YTONON ####[facility] [id number] [address] STATES OF [facility] LABCLIA [id number] [address] UA DIP, URINE (POC)on 2024 BILIRUBIN UA (POCT) Negative Negative [facility] CLARITY UA (POCT) Clear [facility] COLOR UA (POCT) Yellow [facility] GLUCOSE UA (POCT) Negative Negative mg/dL [facility] Hemoglobin Ql (U) Negative Negative [facility] KETONE UA (POCT) Negative Negative mg/dL [facility] LEUKOCYTES UA (POCT) Negative Negative [facility] NITRITE UA (POCT) Negative [facility] PH UA (POCT) 7.5 4.5 - 8.0 [facility] Protein Ql (U) Negative Negative mg/dL [facility] SPECIFIC GRAVITY UA (POCT) 1.015 1.005 - 1.030 [facility] UROBILINOGEN UA (POCT) 0.2 Yesica l E.U./dL [facility] Location:[facility], [address] [place] [address], [address] [place] [address] POINT OF CARE [facility] CNOVon 03-19-2025 CNOV Office Visit (UROSMN ) ----- ANDRE LUTHER ([id number]) 1950 F Date Time Provider Department 03/19/25 10:00 AM NURSE UROL BLADDER INSTILLATIONUROSMN During your visit today, we recorded the following information about you: Andreas Blackwell RN 03/19/2025 10:32 AM Signed BLADDER INSTILLATION Patient ID with two (2) identifiers verified by: Andreas Blackwell RN Allergies reviewed and updated: Yes Medication ordered for bladder instillation: BCG Current pain intensity is: 0 on a 0-10 pain scale. Have you seen any blood in the last 24 hours: No Have you had a temperature greater than 101F in the last 24 hours: No Do you have foul smelling urine or severe burning/urgency that has worsened since the last bladder instillation treatment: No No, Proceed with BCG Any concerns about safety in the home/falls: Not at risk for falls Start Date: 02/09/2025 Vitals- BP 145/70 (LUE), HR 72, PO2 97% on RA, Temp 98.0F Treatment number: 5, decreased by one dose due to UTI week 2. Retention Time Last RX: 120 minutes Symptoms Post Last RX: spasms day of instillation Catheter Used: 14 fr. Straight, inserted with sterile technique, return residual clear, yellow urine of 30 cc. BCG instilled at: 1005 Catheter clamped and removed without difficulty Urinate at: 1205 Return to Clinic on : cystoscopy April 26, Q9 Patient tolerated treatment well. Andreas Blackwell RN Referring Provider: NIKOLE BAILEY [[id number]] Allergies As of Date: 03/19/2025 Noted Allergy Reaction CEPHALOSPORINS 01/19/2008 2 - Rash CODEINE 01/10/2007 8 - GI Upset DUST 01/13/2007 9 - Itching NORTRIPTYLINE 10/24/2020 5 - Intolerance Comments: Elevated blood pressure and pulse. RAGWEED 01/13/2007 DOXYCYCLINE HYCLATE 04/01/2018 5 - Intolerance Comments: Reflux PYRIDIUM (PHENAZOPYRIDINE) 09/03/2019 14 - Other: See Comments Comments: dizziness Date Reviewed: 03/19/2025 Reviewed by: Andreas Blackwell RN - Fully Assessed Reason for Visit: Bladder Cancer [515] Cmt: BCG Primary Visit Diagnosis:Malignant neoplasm of upper-outer quadrant of right breast in female, estrogen receptor positive (HCC) [C50.411, Z17.0] Order(s):lidocaine urojet 2 % 11 mL topical gel (GLYDO)Disp: Rfl: [] bcg (PANCHO BCG) 50 mg in NaCl (PF) 0.9% 50 mLDisp: Rfl: Prescriptions as of 03/19/2025 - LORazepam (ATIVAN) 1 mg tablet Take 0.5-1 tablets by mouth every 8 hours for 30 days. - rosuvastatin (CRESTOR) 10 mg tablet Take 1 tablet by mouth daily at bedtime. - trospium (SANCTURA) 20 mg tablet Take 1 tablet by mouth two times a day. - gabapentin (NEURONTIN) 100 mg capsule Two capsules (200mg) by mouth every morning. - gabapentin (NEURONTIN) 300 mg capsule Take 1 capsule by mouth daily at bedtime for 180 days. - albuterol HFA (VENTOLIN HFA) 90 mcg/actuation inhaler Inhale 2 Puffs as instructed every 4 hours as needed. - Cholecalciferol, Vitamin D3, 125 mcg (5,000 unit) cap Take 1 capsule by mouth once daily. - carboxymethylcellulose sodium (REFRESH OPHTHALMIC) Use 1 Drop in eyes as needed. - propylene glycol (SYSTANE COMPLETE OPHTHALMIC) Use 1 Drop in eyes as needed. - Azelastine HCl (OPTIVAR) 0.05 % ophthalmic solution Use 1 Drop in both eyes twice daily as needed (allergies). - psyllium husk (METAMUCIL ORAL) Take 1 teaspoonful by mouth two times a day. - calcium carbonate (CALCIUM 600 ORAL) Take 600 mg by mouth once daily. - vit A,C,P-Glod-Hxpghp (PRESERVISION AREDS) 7,160-113-100 ihuh-lp-vmzk tab Take 1 tablet by mouth twice daily. - Fcqx-Ktda-RKX#1-C-Morris-Sukhi s-Bor (OSTEO BI-FLEX) 750-625-30 mg Tab Take 1 tablet by mouth twice daily. Facility-Administered Medications as of 03/19/2025 - lidocaine urojet 2 % 11 mL topical gel (GLYDO) Meds Comments as of 04/01/2018: Preservision bid Problem List As Of Date 03/19/2025 Noted Resolved Solar Lentigines [L81.4] 08/07/2011 06/22/2014 Seborrheic Keratosis [L82.1] 08/07/2011 06/22/2014 Nobles Angiomas [D18.01] 08/07/2011 06/22/2014 Cutaneous skin tags [L91.8] 08/07/2011 06/22/2014 Bilateral pseudophakia [Z96.1] 04/01/2012 09/20/2017 Pain in joint, lower leg [M25.569] 05/06/2012 09/20/2017 PCO (posterior capsular opacification), left [H*06/26/2012 09/20/2017 After-cataract, obscuring vision [H26.499] 04/20/2014 09/20/2017 Postmenopausal atrophic vaginitis [N95.2] 06/22/2014 09/08/2019 Primary osteoarthritis of left knee [M17.12] 08/09/2015 Mild intermittent asthma without complication [*08/09/2015 Anal or rectal pain [K62.89] 02/08/2017 09/20/2017 Osteopenia [M85.80] 07/28/2018 Malignant neoplasm of upper-outer quadrant of r*09/05/2018 GERD without esophagitis [K21.9] 06/11/2019 Elevated blood pressure reading without diagnos*08/18/2019 PVC (premature ventricular contraction) [I49.3] 09/03/2019 Abnormal stress test [R94.39] 09/03/2019 Allergy [T78.40XA] 04/26/2021 Rectocele [N81.6] 03/22/2023 Cy (more content not included)... [facility] CNOVon 03-12-2025 CNOV Office Visit (UROSMN ) ----- ANDRE LUTHER ([id number]) 1950 F Date Time Provider Department 03/12/25 10:00 AM NURSE UROL BLADDER INSTILLATIONUROSMN During your visit today, we recorded the following information about you: Andreas Blackwell RN 03/12/2025 10:06 AM Signed BLADDER INSTILLATION Patient ID with two (2) identifiers verified by: Andreas Blackwell RN Allergies reviewed and updated: Yes Medication ordered for bladder instillation: BCG Current pain intensity is: 0 on a 0-10 pain scale. Have you seen any blood in the last 24 hours: No Have you had a temperature greater than 101F in the last 24 hours: No Do you have foul smelling urine or severe burning/urgency that has worsened since the last bladder instillation treatment: No No, Proceed with BCG Any concerns about safety in the home/falls: Not at risk for falls Vitals- HR 72 BP 152/72, LUE PO2 99%, RA Temp 97.8F Start Date: 02/09/2025 Treatment number: 4 of 5 Retention Time Last RX: 120 minutes Symptoms Post Last RX: None Catheter Used: 14 fr. Straight, inserted with sterile technique, return residual clear yellow urine of 20 cc. BCG instilled at: 0950 Catheter clamped and removed without difficulty Urinate at: 1150 Return to Clinic on : next week Patient tolerated treatment well. Andreas Blackwell, RN Referring Provider: NIKOLE BAILEY [[id number]] Allergies As of Date: 03/12/2025 Noted Allergy Reaction CEPHALOSPORINS 01/19/2008 2 - Rash CODEINE 01/10/2007 8 - GI Upset DUST 01/13/2007 9 - Itching NORTRIPTYLINE 10/24/2020 5 - Intolerance Comments: Elevated blood pressure and pulse. RAGWEED 01/13/2007 DOXYCYCLINE HYCLATE 04/01/2018 5 - Intolerance Comments: Reflux PYRIDIUM (PHENAZOPYRIDINE) 09/03/2019 14 - Other: See Comments Comments: dizziness Date Reviewed: 03/12/2025 Reviewed by: Andreas Blackwell RN - Fully Assessed Reason for Visit: Bladder Cancer [515] Cmt: BCG Primary Visit Diagnosis:Malignant neoplasm of upper-outer quadrant of right breast in female, estrogen receptor positive (HCC) [C50.411, Z17.0] Order(s):lidocaine urojet 2 % 11 mL topical gel (GLYDO)Disp: Rfl: [] bcg (PANCHO BCG) 50 mg in NaCl (PF) 0.9% 50 mLDisp: Rfl: Prescriptions as of 03/12/2025 - LORazepam (ATIVAN) 1 mg tablet Take 0.5-1 tablets by mouth every 8 hours for 30 days. - rosuvastatin (CRESTOR) 10 mg tablet Take 1 tablet by mouth daily at bedtime. - trospium (SANCTURA) 20 mg tablet Take 1 tablet by mouth two times a day. - gabapentin (NEURONTIN) 100 mg capsule Two capsules (200mg) by mouth every morning. - gabapentin (NEURONTIN) 300 mg capsule Take 1 capsule by mouth daily at bedtime for 180 days. - albuterol HFA (VENTOLIN HFA) 90 mcg/actuation inhaler Inhale 2 Puffs as instructed every 4 hours as needed. - Cholecalciferol, Vitamin D3, 125 mcg (5,000 unit) cap Take 1 capsule by mouth once daily. - carboxymethylcellulose sodium (REFRESH OPHTHALMIC) Use 1 Drop in eyes as needed. - propylene glycol (SYSTANE COMPLETE OPHTHALMIC) Use 1 Drop in eyes as needed. - Azelastine HCl (OPTIVAR) 0.05 % ophthalmic solution Use 1 Drop in both eyes twice daily as needed (allergies). - psyllium husk (METAMUCIL ORAL) Take 1 teaspoonful by mouth two times a day. - calcium carbonate (CALCIUM 600 ORAL) Take 600 mg by mouth once daily. - vit A,C,N-Cwkk-Pgpwdp (PRESERVISION AREDS) 7,160-113-100 ilsi-fk-wiqi tab Take 1 tablet by mouth twice daily. - Edbp-Wpfc-UCN#1-C-Morris-Sukhi s-Bor (OSTEO BI-FLEX) 750-625-30 mg Tab Take 1 tablet by mouth twice daily. Facility-Administered Medications as of 03/12/2025 - lidocaine urojet 2 % 11 mL topical gel (GLYDO) Meds Comments as of 04/01/2018: Preservision bid Problem List As Of Date 03/12/2025 Noted Resolved Solar Lentigines [L81.4] 08/07/2011 06/22/2014 Seborrheic Keratosis [L82.1] 08/07/2011 06/22/2014 Nobles Angiomas [D18.01] 08/07/2011 06/22/2014 Cutaneous skin tags [L91.8] 08/07/2011 06/22/2014 Bilateral pseudophakia [Z96.1] 04/01/2012 09/20/2017 Pain in joint, lower leg [M25.569] 05/06/2012 09/20/2017 PCO (posterior capsular opacification), left [H*06/26/2012 09/20/2017 After-cataract, obscuring vision [H26.499] 04/20/2014 09/20/2017 Postmenopausal atrophic vaginitis [N95.2] 06/22/2014 09/08/2019 Primary osteoarthritis of left knee [M17.12] 08/09/2015 Mild intermittent asthma without complication [*08/09/2015 Anal or rectal pain [K62.89] 02/08/2017 09/20/2017 Osteopenia [M85.80] 07/28/2018 Malignant neoplasm of upper-outer quadrant of r*09/05/2018 GERD without esophagitis [K21.9] 06/11/2019 Elevated blood pressure reading without diagnos*08/18/2019 PVC (premature ventricular contraction) [I49.3] 09/03/2019 Abnormal stress test [R94.39] 09/03/2019 Allergy [T78.40XA] 04/26/2021 Rectocele [N81.6] 03/22/2023 Cystocele, midline [N81.11] 03/22/2023 Muscle weakness [M62.81] 03/22/2023 (more content not included)... [facility] CNOVon 03-05-2025 CNOV Office Visit (UROSMN ) ----- ANDRE LUTHER ([id number]) 1950 F Date Time Provider Department 03/05/25 10:00 AM NURSE UROL BLADDER INSTILLATIONUROSMN During your visit today, we recorded the following information about you: Andreas Blackwell RN 03/05/2025 10:26 AM Signed BLADDER INSTILLATION Patient ID with two (2) identifiers verified by: Andreas Blackwell RN Allergies reviewed and updated: Yes Medication ordered for bladder instillation: BCG Current pain intensity is: 0 on a 0-10 pain scale. Have you seen any blood in the last 24 hours: No Have you had a temperature greater than 101F in the last 24 hours: No Do you have foul smelling urine or severe burning/urgency that has worsened since the last bladder instillation treatment: No No, Proceed with BCG Any concerns about safety in the home/falls: Not at risk for falls Vitals: BP 135/77, LUE HR 69 PO2 99% RA Start Date: 02/09/2025 Treatment number: 3 of 5 Retention Time Last RX: 120 minutes Symptoms Post Last RX: had UTI after last instillation Catheter Used: 14 fr. Straight, inserted with sterile technique, return clear yellow urine, 50cc. Patient requested to not get lidocaine, RN did not give lidocaine, per patient request. BCG instilled at: 1007 Catheter removed without difficulty Urinate at: 1207 Return to Clinic on : next week Patient tolerated treatment well. Andreas Blackwell RN Referring Provider: NIKOLE BAILEY [[id number]] Allergies As of Date: 03/05/2025 Noted Allergy Reaction CEPHALOSPORINS 01/19/2008 2 - Rash CODEINE 01/10/2007 8 - GI Upset DUST 01/13/2007 9 - Itching NORTRIPTYLINE 10/24/2020 5 - Intolerance Comments: Elevated blood pressure and pulse. RAGWEED 01/13/2007 DOXYCYCLINE HYCLATE 04/01/2018 5 - Intolerance Comments: Reflux PYRIDIUM (PHENAZOPYRIDINE) 09/03/2019 14 - Other: See Comments Comments: dizziness Date Reviewed: 03/05/2025 Reviewed by: Andreas Blackwell RN - Fully Assessed Reason for Visit: Bladder Cancer [515] Cmt: BCG Primary Visit Diagnosis:Malignant neoplasm of upper-outer quadrant of right breast in female, estrogen receptor positive (HCC) [C50.411, Z17.0] Order(s):lidocaine urojet 2 % 11 mL topical gel (GLYDO)Disp: Rfl: [] bcg (PANCHO BCG) 50 mg in NaCl (PF) 0.9% 50 mLDisp: Rfl: Prescriptions as of 03/05/2025 - LORazepam (ATIVAN) 1 mg tablet Take 0.5-1 tablets by mouth every 8 hours for 30 days. - rosuvastatin (CRESTOR) 10 mg tablet Take 1 tablet by mouth daily at bedtime. - trospium (SANCTURA) 20 mg tablet Take 1 tablet by mouth two times a day. - gabapentin (NEURONTIN) 100 mg capsule Two capsules (200mg) by mouth every morning. - gabapentin (NEURONTIN) 300 mg capsule Take 1 capsule by mouth daily at bedtime for 180 days. - albuterol HFA (VENTOLIN HFA) 90 mcg/actuation inhaler Inhale 2 Puffs as instructed every 4 hours as needed. - Cholecalciferol, Vitamin D3, 125 mcg (5,000 unit) cap Take 1 capsule by mouth once daily. - carboxymethylcellulose sodium (REFRESH OPHTHALMIC) Use 1 Drop in eyes as needed. - propylene glycol (SYSTANE COMPLETE OPHTHALMIC) Use 1 Drop in eyes as needed. - Azelastine HCl (OPTIVAR) 0.05 % ophthalmic solution Use 1 Drop in both eyes twice daily as needed (allergies). - psyllium husk (METAMUCIL ORAL) Take 1 teaspoonful by mouth two times a day. - calcium carbonate (CALCIUM 600 ORAL) Take 600 mg by mouth once daily. - vit A,C,M-Vvwp-Bkewlt (PRESERVISION AREDS) 7,160-113-100 utjo-xe-jgcj tab Take 1 tablet by mouth twice daily. - Gody-Vlfh-XXM#1-C-Morris-Sukhi s-Bor (OSTEO BI-FLEX) 750-625-30 mg Tab Take 1 tablet by mouth twice daily. Facility-Administered Medications as of 03/05/2025 - lidocaine urojet 2 % 11 mL topical gel (GLYDO) Meds Comments as of 04/01/2018: Preservision bid Problem List As Of Date 03/05/2025 Noted Resolved Solar Lentigines [L81.4] 08/07/2011 06/22/2014 Seborrheic Keratosis [L82.1] 08/07/2011 06/22/2014 Nobles Angiomas [D18.01] 08/07/2011 06/22/2014 Cutaneous skin tags [L91.8] 08/07/2011 06/22/2014 Bilateral pseudophakia [Z96.1] 04/01/2012 09/20/2017 Pain in joint, lower leg [M25.569] 05/06/2012 09/20/2017 PCO (posterior capsular opacification), left [H*06/26/2012 09/20/2017 After-cataract, obscuring vision [H26.499] 04/20/2014 09/20/2017 Postmenopausal atrophic vaginitis [N95.2] 06/22/2014 09/08/2019 Primary osteoarthritis of left knee [M17.12] 08/09/2015 Mild intermittent asthma without complication [*08/09/2015 Anal or rectal pain [K62.89] 02/08/2017 09/20/2017 Osteopenia [M85.80] 07/28/2018 Malignant neoplasm of upper-outer quadrant of r*09/05/2018 GERD without esophagitis [K21.9] 06/11/2019 Elevated blood pressure reading without diagnos*08/18/2019 PVC (premature ventricular contraction) [I49.3] 09/03/2019 Abnormal stress test [R94.39] 09/03/2019 Allergy [T78.40XA] 04/26/2021 Rectocele [N81.6] 03/22/2023 (more content not included)... [facility] CNOVon 03-02-2025 CNOV Office Visit (CARCMN ) ----- ANDRE LUTHER ([id number]) 1950 F Date Time Provider Department 03/02/25 2:00 PM CARLTON VERDE CARCDEMARCUS During your visit today, we recorded the following information about you: Pulse Blood pressure Weight 72/minute 148/84 64.8 kg Carlton Verde MD 03/02/2025 4:21 PM Signed [facility] [place] [facility] Department of Cardiovascular Medicine SECTION OF CLINICAL CARDIOLOGY OUTPATIENT VISIT DATE March 02, 2025 OUTPATIENT VISIT TYPE ESTABLISHED PRIMARY CARE PHYSICIAN: Abhishek Huynh [address] [place] [address] REFERRING PHYSICIAN: Carlton Verde [address] [facility] [id number] CHIEF COMPLAINT: Follow up HISTORY OF PRESENT ILLNESS: Ms. Luther is a 75 year old female with a medical history significant for PVCs, asthma, breast cancer s/p lumpectomy (08/2017) and radiation, osteopenia post-menopause, bladder cancer s/p TURBT (December 2024) and now on immunotherapy who presents today for a cardiovascular medicine follow-up visit. She was last seen on 02/19/2023 at which time she was exercising, feeling well, LDL had increased from 110 to 127 due to more fast food consumption. I advised statin initiation given her 10-year ASCVD risk score was 15.8% but she wanted to wait for a repeat lipid panel and thereafter would consider. Her TC was 208, LDL 122 so I advised starting rosuvastatin 10mg daily. Most recent lipids on 02/16/2025 showed TC 145, TG 99, HDL 61, LDL 66. Now that she is undergoing immunotherapy, she is a little tired but otherwise feels ok. 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 In terms of nutrition, she states she has raisin bran with blueberries and raisins for breakfast; lunch could be a salad or burger or macaroni salad; dinner could be anything. She states she is eating better than she was 2 years ago, not as much fast food. BP is 148/84 which she states is related to white coat syndrome. BP at home is typically 128/75 (and she has brought her machine in for calibration). PAST CARDIAC HISTORY: See HPI PAST MEDICAL HISTORY Diagnosis Date Asthma (HCC) Basal cell carcinoma 09/2024 nose Bladder cancer (HCC) Breast cancer (HCC) right s/p lumpectomy 08/2017, and radiation Macular cyst, hole, or pseudohole of retina Both eyes Osteopenia after menopause PVC (premature ventricular contraction) Shingles PAST SURGICAL HISTORY Procedure Laterality Date BREAST BIOPSY INCISIONAL RIGHT Right 07/2018 BREAST LUMPECTOMY HX Right 09/15/2018 Right NL PM/SNBx: [id number], ER/AR+, HER2 Neg, Grade 1, IDC w/tubular features; 1/2nodes COLONOSCOPY 07/2007, 01/14 nevus 1980 face. POST-CATARACT LASER SURGERY 06/26/2012 Yag Capsulotomy OS VITRECTOMY FOR MACULAR HOLE Left 06/06/2011 L eye. VITRECTOMY MECHANICAL PARS PLANA Right 02/20/2012 [place] Vitrectomy ,MP, PCIOL OD SOCIAL HISTORY Social History Tobacco Use Smoking status: Never Smokeless tobacco: Never Vaping Use Vaping status: Never Used Substance Use Topics Alcohol use: No Drug use: No FAMILY HISTORY Problem Relation Age of Onset Cataract Mother other (osteopenia) Mother Osteopenia Stroke Mother Heart Father SC Lipids Father High Cholesterol other (Macular Degeneration) Maternal Grandfather Heart Attack Paternal Grandmother Heart Attack Paternal Grandfather Blood Clots Daughter Coronary Artery Disease Paternal Aunt Coronary Artery Disease Paternal Uncle ALLERGIES: ALLERGIES Allergen Reactions Cephalosporins Rash Codeine GI Upset Dust Itching Nortriptyline Intolerance Elevated blood pressure and pulse. Ragweed Doxycycline Hyclate Intolerance Reflux Pyridium [Phenazopy* Other: See Comments dizziness MEDICATIONS: LORazepam (ATIVAN) 1 mg tabletTake 0.5-1 tablets by mouth every 8 hours for 30 days.Disp: 30 tabletRfl: 0 rosuvastatin (CRESTOR) 10 mg tabletTake 1 tablet by mouth daily at bedtime.Disp: 90 tabletRfl: 3 trospium (SANCTURA) 20 mg tabletTake 1 tablet by mouth two times a day.Disp: 60 tabletRfl: 2 (Patient not taking: Reported on 03/02/2025) gabapentin (NEURONTIN) 100 mg capsuleTwo capsules (200mg) by mouth every morning.Disp: 180 capsuleRfl: 5 gabapentin (NEURONTIN) 300 mg capsuleTake 1 capsule by mouth daily at bedtime for 180 days.Disp: 30 capsuleRfl: 5 albuterol HFA (VENTOLIN HFA) 90 mcg/actuation inhalerInhale 2 Puffs as instructed every 4 hours as needed.Disp: 1 EachRfl: 1 Cholecalciferol, Vitamin D3, 125 mcg (5,000 unit) capTake 1 capsule by mouth once daily.Disp: Rfl: carboxymethylcellulose sodium (REFRESH OPHTHALMIC)Use 1 Drop in eyes as needed.Disp: Rfl: propylene glycol (SYSTANE COMPLETE OPHTHALMIC)Use 1 Drop in eyes as needed.Di (more content not included)... Normal [facility] OCT MACULA CIRRUS OU (BOTH E YES)on 03-02-2025 [facility] Radiology [facility]narrative[facility] Bacteria Ur Culton Bacteria identified Cx Nom (U) ORGANISM ID: 1 50,000-<100,000 CFU/ml Escherichia coli ORGANISM ID: 2 <10,000 CFU/ml Normal urogenital girish ORGANISM ID: 1 (ESCHERICHIA COLI) ANTIBIOTIC INTERPRETATION RYLIE STATUS REFERENCE RANGE Ampicillin S 8 F Susceptible <=8 , Intermediate >8 , Resistant >16 Cefazolin S <=4 F Susceptible 0-16 , Intermediate <0 or >16 , Resistant >16 For uncomplicated urinary tract infections, cefazolin results can be used to predict susceptibility or resistance to cephalexin. Ceftriaxone S <=1 F Susceptible <=1 , Intermediate >1 , Resistant >=4 Cefepime S <=1 F Susceptible <=2 , Susceptible-Dose Dependent >2 , Resistant >=16 Ertapenem S <=0.5 F Susceptible <=0.5 , Intermediate >.5 , Resistant >1 Meropenem S <=0.25 F Susceptible <=1 , Intermediate >1 , Resistant >2 Ampicillin/Sulbact S <=2 F Susceptible <=8 , Intermediate >8 , Resistant >16 Piperacillin/Tazobac S <=4 F Susceptible <16 , Susceptible-Dose Dependent >=16 , Resistant >=32 Gentamicin S <=1 F Susceptible <=2 , Intermediate >2 , Resistant >=8 Tobramycin S <=1 F Susceptible <4 , Intermediate >=4 , Resistant >=8 Trimeth sulfameth S <=20 F Susceptible <=40 , Resistant >40 Ciprofloxacin S <=0.25 F Susceptible <0.5 , Intermediate >=.5 , Resistant >=1 Nitrofurantoin S <=16 F Susceptible <=32 , Intermediate >32 , Resistant >64 Abnormal [facility] Comment on above: Performed By: #### 6 30-4 ####[facility] LABCLIA [id number] [address] [place] [address] [place] Urinalysis complete panel (U )on 02-23-2025 Bacteria LM.HPF (Urine sed) [#/Area] Negative Normal Negative [facility] Comment on above: Order Comment: Speci men Type: URINE SPECIMENOrdering Facility: [facility] Address: [address] [place] [address] Performed By: #### 2 4356-8 ####[facility] LABCLIA [id number] [address] [place] [address] [place] Bilirubin Ql (U) Negative Normal Negative [facility] Comment on above: Order Comment: Speci men Type: URINE SPECIMENOrdering Facility: [facility] Address: [address] [place] [address] Performed By: #### 2 4356-8 ####[facility] LABCLIA [id number] [address], [place] [address] [place] Clarity (Unsp spec) Clear Normal Clear [facility] Comment on above: Order Comment: Speci men Type: URINE SPECIMENOrdering Facility: [facility] Address: [address] [place] [address] Performed By: #### 2 4356-8 ####[facility] LABCLIA [id number] [address], [facility] [place] [facility] Color (U) Yellow Normal Yellow [facility] Comment on above: Order Comment: Speci men Type: URINE SPECIMENOrdering Facility: [facility] Address: [address] [place] [address] Performed By: #### 2 4356-8 ####[facility] LABCLIA [id number] [address], [facility] [place] Epithelial cells LM.HPF (Urine sed) [#/Area] None Seen Normal [facility] Comment on above: Order Comment: Speci men Type: URINE SPECIMENOrdering Facility: [facility] Address: [address] [place] [address] Performed By: #### 2 4356-8 ####[facility] LABCLIA [id number] [address], [facility] [place] Glucose Test strip (U) [Mass/Vol] Negative Normal Negative [facility] Comment on above: Order Comment: Speci men Type: URINE SPECIMENOrdering Facility: [facility] Address: [address] [place] [address] Performed By: #### 2 4356-8 ####[facility] LABCLIA [id number] [address], [facility] [place] Hemoglobin Ql (U) 2+ Abnormal Negative [facility] Comment on above: Order Comment: Speci men Type: URINE SPECIMENOrdering Facility: [facility] Address: [address] [place] [address] Performed By: #### 2 4356-8 ####[facility] LABCLIA [id number] [address], [place] [address] [place] Hyaline casts (Urine sed) [#/Area] 0 /[LPF] Normal 0 /LPF [facility] Comment on above: Order Comment: Speci men Type: URINE SPECIMENOrdering Facility: [facility] Address: [address] [place] [address] Performed By: #### 2 4356-8 ####[facility] LABCLIA [id number] [address], [facility] [place] Ketones Ql (U) Negative Normal Negative [facility] Comment on above: Order Comment: Speci men Type: URINE SPECIMENOrdering Facility: [facility] Address: [address] [place] [address] Performed By: #### 2 4356-8 ####[facility] LABCLIA [id number] [address], [facility] [place] Leukocyte esterase Test strip Ql (U) 2+ Abnormal Negative [facility] Comment on above: Order Comment: Speci men Type: URINE SPECIMENOrdering Facility: [facility] Address: [address] [place] [address] Performed By: #### 2 4356-8 ####[facility] LABCLIA [id number] [place] [address] [place] Nitrite Ql (U) Negative Normal Negative [facility] Comment on above: Order Comment: Speci men Type: URINE SPECIMENOrdering Facility: [facility] Address: [address] [place] [address] Performed By: #### 2 4356-8 ####[facility] LABCLIA [id number] [place] [address] [place] pH (U) 6.5 [pH] Normal <8.5 [facility] Comment on above: Order Comment: Speci men Type: URINE SPECIMENOrdering Facility: [facility] Address: [address] [place] [address] Performed By: #### 2 4356-8 ####[facility] LABCLIA [id number] [place] [address] [place] Protein (U) [Mass/Vol] Trace Abnormal Negative [facility] Comment on above: Order Comment: Speci men Type: URINE SPECIMENOrdering Facility: [facility] Address: [address] [place] [address] Performed By: #### 2 4356-8 ####[facility] LABCLIA [id number] [place] [address] [place] RBC LM.HPF (Urine sed) [#/Area] 0-2 /HPF Normal 0-2 /HPF [facility] Comment on above: Order Comment: Speci men Type: URINE SPECIMENOrdering Facility: [facility] Address: [address] [place] [address] Performed By: #### 2 4356-8 ####[facility] LABCLIA [id number] [address] [place] Specific gravity (U) [Rel density] 1.006 Normal 1.005-1.030 [facility] Comment on above: Order Comment: Speci men Type: URINE SPECIMENOrdering Facility: [facility] Address: [address] [place] [address] Performed By: #### 2 4356-8 ####[facility] LABIA [id number] [address] [place] Urobilinogen Ql (U) 0.2 EU/dL Normal 0.2-1.0 EU/dL [facility] Comment on above: Order Comment: Speci men Type: URINE SPECIMENOrdering Facility: [facility] Address: [address] [place] [address] Performed By: #### 2 4356-8 ####[facility] LABIA [id number] [place] [address] [place] WBC LM.HPF (Urine sed) [#/Area] /[HPF] Abnormal 0-5 /HPF [facility] Comment on above: Order Comment: Speci men Type: URINE SPECIMENOrdering Facility: [facility] Address: [address] [place] [address] Performed By: #### 2 4356-8 ####[facility] [id number] [address] [place] CNOVon 02-18-2025 CNOV Office Visit (UROSMN ) ----- ANDRE LUTHER ([id number]) 1950 F Date Time Provider Department 02/18/25 9:00 AM NURSE UROL BLADDER INSTILLATIONUROSMN During your visit today, we recorded the following information about you: Gabbi Sainz RN 02/18/2025 8:58 AM Signed BLADDER INSTILLATION Patient ID with two (2) identifiers verified by: Gabbi Sainz RN Allergies reviewed and updated: Yes Medication ordered for bladder instillation: BCG Current pain intensity is: 0 on a 0-10 pain scale. Have you seen any blood in the last 24 hours: No Have you had a temperature greater than 101F in the last 24 hours: No Do you have foul smelling urine or severe burning/urgency that has worsened since the last bladder instillation treatment: No No, Proceed with BCG Any concerns about safety in the home/falls: Not at risk for falls BP 141/71, pulse 78 Start Date: 02/09/25 Treatment number: 2 of 6 Retention Time Last RX: 2 hours Symptoms Post Last RX: None Catheter Used: 14 fr. straight BCG instilled at: 0850 Drained at: Patient to urinate in 2 hours at home Residual TX: Yes 75 cc. Return to Clinic on : weekly Patient tolerated treatment well. BP 153/73, pulse 75 Gabbi Sainz RN Referring Provider: NIKOLE BAILEY [[id number]] Allergies As of Date: 02/18/2025 Noted Allergy Reaction CEPHALOSPORINS 01/19/2008 2 - Rash CODEINE 01/10/2007 8 - GI Upset DUST 01/13/2007 9 - Itching NORTRIPTYLINE 10/24/2020 5 - Intolerance Comments: Elevated blood pressure and pulse. RAGWEED 01/13/2007 DOXYCYCLINE HYCLATE 04/01/2018 5 - Intolerance Comments: Reflux PYRIDIUM (PHENAZOPYRIDINE) 09/03/2019 14 - Other: See Comments Comments: dizziness Date Reviewed: 02/18/2025 Reviewed by: Gabbi Sainz RN - Fully Assessed Reason for Visit: BCG Instillation [1143] Primary Visit Diagnosis:Malignant neoplasm of upper-outer quadrant of right breast in female, estrogen receptor positive (HCC) [C50.411, Z17.0] Order(s):lidocaine urojet 2 % 11 mL topical gel (GLYDO)Disp: Rfl: [] bcg (PANCHO BCG) 50 mg in NaCl (PF) 0.9% 50 mLDisp: Rfl: Prescriptions as of 02/18/2025 - gabapentin (NEURONTIN) 100 mg capsule Two capsules (200mg) by mouth every morning. - gabapentin (NEURONTIN) 300 mg capsule Take 1 capsule by mouth daily at bedtime for 180 days. - albuterol HFA (VENTOLIN HFA) 90 mcg/actuation inhaler Inhale 2 Puffs as instructed every 4 hours as needed. - rosuvastatin (CRESTOR) 10 mg tablet Take 1 tablet by mouth daily at bedtime. - Cholecalciferol, Vitamin D3, 125 mcg (5,000 unit) cap Take 1 capsule by mouth once daily. - carboxymethylcellulose sodium (REFRESH OPHTHALMIC) Use 1 Drop in eyes as needed. - propylene glycol (SYSTANE COMPLETE OPHTHALMIC) Use 1 Drop in eyes as needed. - Azelastine HCl (OPTIVAR) 0.05 % ophthalmic solution Use 1 Drop in both eyes twice daily as needed (allergies). - psyllium husk (METAMUCIL ORAL) Take 1 teaspoonful by mouth two times a day. - calcium carbonate (CALCIUM 600 ORAL) Take 600 mg by mouth once daily. - vit A,C,S-Vaky-Ltypmn (PRESERVISION AREDS) 7,160-113-100 rufi-jh-pmti tab Take 1 tablet by mouth twice daily. - Abpu-Umxf-JFL#1-C-Morris-Sukhi s-Bor (OSTEO BI-FLEX) 750-625-30 mg Tab Take 1 tablet by mouth twice daily. Facility-Administered Medications as of 02/18/2025 - lidocaine urojet 2 % 11 mL topical gel (GLYDO) Meds Comments as of 04/01/2018: Preservision bid Problem List As Of Date 02/18/2025 Noted Resolved Solar Lentigines [L81.4] 08/07/2011 06/22/2014 Seborrheic Keratosis [L82.1] 08/07/2011 06/22/2014 Nobles Angiomas [D18.01] 08/07/2011 06/22/2014 Cutaneous skin tags [L91.8] 08/07/2011 06/22/2014 Bilateral pseudophakia [Z96.1] 04/01/2012 09/20/2017 Pain in joint, lower leg [M25.569] 05/06/2012 09/20/2017 PCO (posterior capsular opacification), left [H*06/26/2012 09/20/2017 After-cataract, obscuring vision [H26.499] 04/20/2014 09/20/2017 Postmenopausal atrophic vaginitis [N95.2] 06/22/2014 09/08/2019 Primary osteoarthritis of left knee [M17.12] 08/09/2015 Mild intermittent asthma without complication [*08/09/2015 Anal or rectal pain [K62.89] 02/08/2017 09/20/2017 Osteopenia [M85.80] 07/28/2018 Malignant neoplasm of upper-outer quadrant of r*09/05/2018 GERD without esophagitis [K21.9] 06/11/2019 Elevated blood pressure reading without diagnos*08/18/2019 PVC (premature ventricular contraction) [I49.3] 09/03/2019 Abnormal stress test [R94.39] 09/03/2019 Allergy [T78.40XA] 04/26/2021 Rectocele [N81.6] 03/22/2023 Cystocele, midline [N81.11] 03/22/2023 Muscle weakness [M62.81] 03/22/2023 12/23/2023 Personal history of malignant neoplasm of breas*08/17/2024 Prescriptions ordered this encounter Disp Refills Start End LIDOCAINE 2 % MUCOSAL JELLY IN APPLI* 02/18/2025 02/18/2025 Route: OTHER BCG FOR BLADDER IRRIGATION 02/18/2025 02/18/2025 (more content not included)... Normal [facility] Comprehensive metabolic 2000 panelon 02-16-2025 Albumin [Mass/Vol] 4.3 g/dL Normal 3.9-4.9 [facility] Comment on above: Order Comment: Speci men Type: BLOOD SPECIMENOrdering Facility: [facility] Address: [address] [place] [address] Performed By: #### 2 4323-8, 82432-2 ####[facility] LABCLIA [id number] [place] [address] [place] ALP [Catalytic activity/Vol] 88 U/L Normal 34-123 [facility] Comment on above: Order Comment: Speci men Type: BLOOD SPECIMENOrdering Facility: [facility] Address: [address] [place] [id number] Performed By: #### 2 4323-8, 32750-9 ####[facility] LABCLIA [id number] [place] [id number] [place] ALT [Catalytic activity/Vol] 16 U/L Normal 7-38 [facility] Comment on above: Order Comment: Speci men Type: BLOOD SPECIMENOrdering Facility: [facility] Address: [address] [place], [place] [address] Performed By: #### 2 4323-8, 74996-2 ####[facility] LABCLIA [id number] [place] [id number] [place] Anion gap [Moles/Vol] 8 mmol/L Normal 8-15 [facility] Comment on above: Order Comment: Speci men Type: BLOOD SPECIMENOrdering Facility: [facility] Address: [address] [place] [address] Performed By: #### 2 4323-8, 83097-4 ####[facility] LABCLIA [id number] [place] [address] [place] AST [Catalytic activity/Vol] 25 U/L Normal 13-35 [facility] Comment on above: Order Comment: Speci men Type: BLOOD SPECIMENOrdering Facility: [facility] Address: [address] [place], [place] [address] Performed By: #### 2 4323-8, 19616-7 ####[facility] LABCLIA [id number] [place] [address] [place] Bilirubin [Mass/Vol] 0.5 mg/dL Normal 0.2-1.3 [facility] Comment on above: Order Comment: Speci men Type: BLOOD SPECIMENOrdering Facility: [facility] Address: [address] [place], [place] [address] Performed By: #### 2 4323-8, 51280-7 ####[facility] LABCLIA [id number] [address] [place] [address] [place] Calcium [Mass/Vol] 9.9 mg/dL Normal 8.5-10.2 [facility] Comment on above: Order Comment: Speci men Type: BLOOD SPECIMENOrdering Facility: [facility] Address: [address] [place] [address] Performed By: #### 2 4323-8, 05127-4 ####[facility] LABCLIA [id number] [address] [address] [place] Chloride [Moles/Vol] 104 mmol/L Normal 98-107 [facility] Comment on above: Order Comment: Speci men Type: BLOOD SPECIMENOrdering Facility: [facility] Address: [address] [place] [address] Performed By: #### 2 4323-8, 61044-4 ####[facility] LABCLIA [id number] [place] [address] [place] CO2 [Moles/Vol] 29 mmol/L Normal 22-30 [facility] Comment on above: Order Comment: Speci men Type: BLOOD SPECIMENOrdering Facility: [facility] Address: [address] [place] [address] Performed By: #### 2 4323-8, 49783-4 ####[facility] LABCLIA [id number] [address] [address] [place] Creatinine [Mass/Vol] 0.79 mg/dL Normal 0.58-0.96 [facility] Comment on above: Order Comment: Speci men Type: BLOOD SPECIMENOrdering Facility: [facility] Address: [address] [place], [place] [address] Performed By: #### 2 4323-8, 15370-0 ####[facility] LABCLIA [id number] [address] [address] [place] Creatinine and Glomerular filtration rate.predicted panel (S/P/Bld) 79 mL/min/1.73m??? Normal >=60 [facility] Comment on above: Order Comment: Fran peña Type: BLOOD SPECIMENOrdering Facility: [facility] Address: [address] [place] [address] Result Comment: Elin mated Glomerular Filtration Rate (eGFR) is calculated using the 2020 CKD-EPI creatinine equation. This equation utilizes serum creatinine, sex, and age as parameters. The creatinine assay has traceable calibration to isotope dilution-mass spectrometry. Refer to KDIGO guidelines for clinical interpretation. In patients with unstable renal function, e.g. those with acute kidney injury, the eGFR may not accurately reflect actual GFR. Performed By: #### 2 4323-8, 88026-3 ####[facility] LABIA [id number] [place] [address] [place] Glucose [Mass/Vol] 86 mg/dL Normal 74-99 [facility] Comment on above: Order Comment: Fran peña Type: BLOOD SPECIMENOrdering Facility: [facility] Address: [address] [place] [address] Result Comment: The [place] [employer] (ADA) provides guidance for cutoff values for fasting glucose and random glucose. The ADA defines fasting as no caloric intake for at least 8 hours. Fasting plasma glucose results between 100 to 125 [...] Standards of Medical Care in Diabetes 2016, [place] [employer]. Diabetes Care. 2016.39(Suppl 1). Performed By: #### 2 4323-8, 38169-0 ####[facility] LABIA [id number] [place] [address] [place] Potassium [Moles/Vol] 4.2 mmol/L Normal 3.7-5.1 [facility] Comment on above: Order Comment: Speci men Type: BLOOD SPECIMENOrdering Facility: [facility] Address: [address] [place] [id number] Performed By: #### 2 4323-8, 27627-8 ####[facility] LABCLIA [id number] [address] [address] [place] Protein [Mass/Vol] 6.8 g/dL Normal 6.3-8.0 [facility] Comment on above: Order Comment: Speci men Type: BLOOD SPECIMENOrdering Facility: [facility] Address: [address] [place] [address] Performed By: #### 2 4323-8, 97258-0 ####[facility] LABCLIA [id number] [place] [address] [place] Sodium [Moles/Vol] 141 mmol/L Normal 136-144 [facility] Comment on above: Order Comment: Speci men Type: BLOOD SPECIMENOrdering Facility: [facility] Address: [address] [place] [address] Performed By: #### 2 4323-8, 27259-3 ####[facility] LABCLIA [id number] [place] [address] [place] Urea nitrogen [Mass/Vol] 11 mg/dL Normal 7-21 [facility] Comment on above: Order Comment: Speci men Type: BLOOD SPECIMENOrdering Facility: [facility] Address: [address] [place] [id number] Performed By: #### 2 4323-8, 28111-2 ####[facility] LABIA [id number] [address] [address] [place] Lipid 1996 panelon 5 Cholesterol [Mass/Vol] 145 mg/dL Normal <200 [facility] Comment on above: Order Comment: Speci men Type: BLOOD SPECIMENOrdering Facility: [facility] Address: [address] [place], [place] [address] Result Comment: <200 mg/dL, Desirable 200-239 mg/dL, Borderline high >239 mg/dL, High Performed By: #### 2 4323-8, 59224-2 ####[facility] LABCLIA [id number] [address] [place] Cholesterol in HDL [Mass/Vol] 61 mg/dL Normal >39 [facility] Comment on above: Order Comment: Fran men Type: BLOOD SPECIMENOrdering Facility: [facility] Address: [address] [place] [address] Result Comment: 40-5 9 mg/dL, Acceptable >59 mg/dL, High: Negative risk factor for coronary heart disease <40 mg/dL, Low: Positive risk factor for coronary heart disease Performed By: #### 2 4323-8, 30805-9 ####[facility] LABCLIA [id number] [address] [place] Cholesterol in LDL [Mass/Vol] 66 mg/dL Normal <100 [facility] Comment on above: Order Comment: Fran peña Type: BLOOD SPECIMENOrdering Facility: [facility] Address: [address] [place] [address] Result Comment: <100 mg/dL, Optimal 100-129 mg/dL, Near optimal/above optimal 130-159 mg/dL, Borderline high 160-189 mg/dL, High >189 mg/dL, Very high Secondary prevention optimal LDL Cholesterol levels are recommended to be <70 mg/dL LDL cholesterol is calculated using the Schulz-NIH equation. Performed By: #### 2 4323-8, 04020-6 ####[facility] [facility] LABIA [id number] [place] [id number] [place] Cholesterol in LDL/Cholesterol in HDL [Mass ratio] 1.08 {ratio} Normal <2.54 [facility] Comment on above: Order Comment: Fran casey Type: BLOOD SPECIMENOrdering Facility: [facility] Address: [address] [place] [address] Result Comment: Kelsie son: 1. National Cholesterol Education Program ATP III Guideline At-A-Glance Quick Desk Reference: National Heart, Lung, and Blood [place]. National Institutes of Health. 2001: NIH Publication No. 01-3305. 2. An International Atherosclerosis Society position paper: global recommendations for the management of dyslipidemia: executive summary, Atherosclerosis. 2014: 232(2):410-413. Performed By: #### 2 4323-8, 86430-1 ####[facility] LABCLIA [id number] [address] [address] [place] Cholesterol in VLDL [Mass/Vol] 15 mg/dL Normal <30 [facility] Comment on above: Order Comment: Speci men Type: BLOOD SPECIMENOrdering Facility: [facility] Address: [address] [place] [address] Performed By: #### 2 4328, ####[facility] LABCLIA [id number] [place] [address] [place] Cholesterol non HDL [Mass/Vol] 84 mg/dL Normal <130 [facility] Comment on above: Order Comment: Speci men Type: BLOOD SPECIMENOrdering Facility: [facility] Address: [address] [place] [address] Result Comment: <130 mg/dL, Optimal 130-159 mg/dL, Near optimal/above optimal 160-189 mg/dL, Borderline high 190-219 mg/dL, High >219 mg/dL, Very high Secondary prevention optimal non HDL Cholesterol levels are recommended to be <100 mg/dL Performed By: #### 2 4323-04, ####[facility] LABCLIA [id number] [address] [address] [place] Cholesterol.total/Violeta sterol in HDL [Mass ratio] 2.38 {ratio} Normal <5.10 [facility] Comment on above: Order Comment: Speci men Type: BLOOD SPECIMENOrdering Facility: [facility] Address: [address] [place] [address] Performed By: #### 2 4328, 91210-6 ####[facility] LABCLIA [id number] [place] [address] [place] FASTING TIME 12 hrs Normal [facility] Comment on above: Order Comment: Speci men Type: BLOOD SPECIMENOrdering Facility: [facility] Address: [address] [place] [address] Performed By: #### 2 4323-8, 15365-1 ####[facility] LABCLIA [id number] [place] [address] [place] Triglyceride [Mass/Vol] 99 mg/dL Normal <150 [facility] Comment on above: Order Comment: Speci men Type: BLOOD SPECIMENOrdering Facility: [facility] Address: [address] [place] [address] Result Comment: <150 mg/dL, Normal 150-199 mg/dL, Borderline high 200-499 mg/dL, High >499 mg/dL, Very high Performed By: #### 2 4323-8, 89674-0 ####[facility] LABCLIA [id number] [place] [address] [place] CNOVSPon 02-12-2025 CNOVSP Visit (SP) Office (HEMTIKA) ----- ANDRE LUTHER ([id number]) 1950 F Date Time Provider Department 02/12/25 9:30 AM RADHA HER During your visit today, we recorded the following information about you: Temperature Pulse Blood pressure Weight 98.2 degrees 74/minute 141/84 66 kg Radha Her APRN.PLASTERING SUPERVISOR 02/15/2025 1:23 PM Signed Chief Complaint Patient presents with: Established Patient HPI: Andre Luther is a 75 year old female who presents here today for follow up breast cancer. Per Dr. Deng's previous note: H/o PVCs, GERD and osteoarthritis of the left knee. Underwent ultrasound-guided core needle biopsy on 08/28/2018. Pathology: Right breast, ultrasound-guided needle core biopsy - Invasive ductal carcinoma, nuclear grade 1. - Estrogen receptor is positive greater than 95% nuclei staining, outside slide reviewed. - Progesterone receptor is positive 80% of nuclei staining, outside slide reviewed. - HER2 by immunohistochemistry is negative +0, outside slide reviewed. Underwent a right partial mastectomy with sentinel lymph node biopsy on 09/15/2018. Pathology: 1. Right axillary sentinel lymph node #1, resection (A) - Micrometastatic adenocarcinoma present in one of two lymph nodes (1/2). See comment. 2. Right breast partial mastectomy (B) - Invasive ductal carcinoma with tubular features, histologic grade 1. Prior biopsy site and clip are identified. See synoptic template. 3. Right breast deep, inferior, superior, medial, anterior, lateral margins, resection (C-H) - Fibrofatty breast tissue with no tumor seen. Oncotype DX recurrence score was 14. Previous therapy: Right partial mastectomy with sentinel node dissection (Dr. Reinoso; September 15, 2018, 1.5 cm , 1 of 2 lymph nodes positive with micro mets (1.1 mm)) Radiation therapy (Dr. Baxter, completed therapy on November 19, 2018) Patient declined endocrine therapy I have bladder cancer. Pt. was seen locally initially. She is now being treated at [facility]. Appetite:Really good. Wt. down 2# since last visit. Energy level:Good. Denies fevers or recent illness. Resp:denies cough or sob h/o asthma/seasonal allergies Cardiac:denies chest pain/palpitations GI:denies abd pain, n/v, moving bowels regularly :denies dysuria/hematuria Extrem:denies pain Endo:occ. hot flashes Neuro:denies symptoms of neuropathy Skin:denies rashes Heme:denies bleeding The ROS is otherwise negative. Past medical history, appointments, medications, allergies reviewed. No changes. EXAM: BP 141/84 Pulse 74 Temp 36.8 ?C (98.2 ?F) (Oral) Wt 66 kg (145 lb 8.1 oz) SpO2 97% BMI 27.49 kg/m? APPEARANCE Well appearing, alert, in no acute distress, well-hydrated, well nourished. HEART RRR with normal S1 and S2, no murmurs LUNG clear to auscultation BREAST FEMALE no mass/nodule b/l, R upper tenderness-stable LYMPH NODES No cervical lymphadenopathy, No supraclavicular lymphadenopathy, and No axillary lymphadenopathy. ABDOMEN bowel sounds normoactive, soft, non-tender EXTREMITIES No edema NEURO Awake, alert and oriented x 3, Normal gait, and No involuntary motions. SKIN Skin color, texture, turgor normal, no suspicious rashes or lesions ASSESSMENT/PLAN: 1. Encounter for follow-up surveillance of breast cancer - ICD9: V67.9, V10.3, ICD10: Z08, Z85.3 pT1c pN1(mi) ER/AR positive (95% and 80% respectively), HER-2 negative (0 on IHC) infiltrating ductal carcinoma the right breast. Oncotype current score 14. Received adjuvant radiation to the breast. Declined adjuvant endocrine therapy. - Chronic intermittent lancinating pain right axilla into superior portion of the breast. Stable. - No concerning findings on exam. - Reviewed mammogram with pt. - Continue neurontin for hot flashes. - Continue follow up with PCP for routine care. - Continue follow up at main/urology for bladder cancer. - Mammogram due in 2024. - Follow up after above. - Pt. aware to call office with any questions/concerns. The patient indicates understanding of these issues and agrees with the plan. All documentation from previous visit of 07/16/24-Dr. Deng/myself was copied and pasted, documentation has been reviewed and edited as necessary for today's visit. Radha Her APRN.VALERY Allergies As of Date: 02/12/2025 Noted Allergy Reaction CEPHALOSPORINS 01/19/2008 2 - Rash CODEINE 01/10/2007 8 - GI Upset DUST 01/13/2007 9 - Itching NORTRIPTYLINE 10/24/2020 5 - Intolerance Comments: Elevated blood pressure and pulse. RAGWEED 01/13/2007 DOXYCYCLINE HYCLATE 04/01/2018 5 - Intolerance Comments: Reflux PYRIDIUM (PHENAZOPYRIDINE) 09/03/2019 14 - Other: See Comments Comments: dizziness Date Reviewed: 02/12/2025 Reviewed by: Radha Her APRN.PLASTERING SUPERVISOR - Fully Assessed Reason for Visit: Established Patient [175] Primary Vis (more content not included)... Normal [facility] CNOVon 02-09-2025 CNOV Office Visit (UROSMN ) ----- HOMAANDRE Annemarie ([id number]) 1950 F Date Time Provider Department 02/09/25 9:00 AM NURSE UROL UROSMN During your visit today, we recorded the following information about you: Andreas Blackwell RN 02/09/2025 9:41 AM Signed AMBULATORY PATIENT EDUCATION NOTE READINESS TO LEARN COGNITIVE ABILITY: Alert and oriented MOTIVATION TO LEARN: Interested FAMILY SUPPORT: High - Very involved in pt care INSTRUCTION PROVIDED TO: Patient PATIENT LEARNS BEST BY: Individual Instruction Written Instruction - Hand-outs Verbal Instruction FACTORS AFFECTING LEARNING: None PHYSICAL LIMITATIONS AFFECTING LEARNING: None LEARNING RESPONSE DIAGNOSIS: Bladder Cancer EDUCATION TOPIC/ TEACHING POINTS: Procedure / Surgery: Pre-op Teaching: Logistics / Protocols / Complication Prevention METHOD OF INSTRUCTION: Individual instruction Written instruction/Handouts Verbal instruction PATIENT / FAMILY RESPONSE: Verbalizes understanding of: CHEMOTHERAPY-Regimen, toxicity and side effects INFECTION MANAGEMENT-Signs and symptoms of an infection and importance of contacting the physician MEDICAL REGIMEN-Importance of following prescribed medical regimen PAIN MANAGEMENT-Effective strategies to manage pain in addition to pain medication RISK FACTORS-Unique risk factors related to their disease FOLLOW-UP PLAN: Complete - No need for follow-up SUPPLEMENTAL MATERIAL: BCG worksheet REFERRAL (RECOMMENDATION): None Electronically Signed By Andreas Blackwell RN in Department: UROLOGY BLADDER INSTILLATION Patient ID with two (2) identifiers verified by: Andreas Blackwell RN Allergies reviewed and updated: Yes Medication ordered for bladder instillation: BCG Current pain intensity is: 0 on a 0-10 pain scale. Have you seen any blood in the last 24 hours: No Have you had a temperature greater than 101F in the last 24 hours: No Do you have foul smelling urine or severe burning/urgency that has worsened since the last bladder instillation treatment: No No, Proceed with BCG Any concerns about safety in the home/falls: Not at risk for falls Start Date: 02/09/2025 Treatment number: 1 of 6 FIRST TREATMENT Catheter Used: 14 fr. Straight, inserted with sterile technique, return residual clear yellow urine, 50 cc. BCG instilled at: 0924 Urinate at home at: 1124 Return to Clinic on : next week Patient tolerated treatment well. Andreas Blackwell RN Referring Provider: NIKOLE BAILEY [[id number]] Allergies As of Date: 02/09/2025 Noted Allergy Reaction CEPHALOSPORINS 01/19/2008 2 - Rash CODEINE 01/10/2007 8 - GI Upset DUST 01/13/2007 9 - Itching NORTRIPTYLINE 10/24/2020 5 - Intolerance Comments: Elevated blood pressure and pulse. RAGWEED 01/13/2007 DOXYCYCLINE HYCLATE 04/01/2018 5 - Intolerance Comments: Reflux PYRIDIUM (PHENAZOPYRIDINE) 09/03/2019 14 - Other: See Comments Comments: dizziness Date Reviewed: 02/09/2025 Reviewed by: Andreas Blackwell RN - Fully Assessed Reason for Visit: Bladder Cancer [515] Cmt: Bcg instillation Primary Visit Diagnosis:Malignant neoplasm of upper-outer quadrant of right breast in female, estrogen receptor positive (HCC) [C50.411, Z17.0] Order(s):[] lidocaine urojet 2 % 11 mL topical gel (GLYDO)Disp: Rfl: [] bcg (PANCHO BCG) 50 mg in NaCl (PF) 0.9% 50 mLDisp: Rfl: Prescriptions as of 02/09/2025 - gabapentin (NEURONTIN) 100 mg capsule Two capsules (200mg) by mouth every morning. - gabapentin (NEURONTIN) 300 mg capsule Take 1 capsule by mouth daily at bedtime for 180 days. - albuterol HFA (VENTOLIN HFA) 90 mcg/actuation inhaler Inhale 2 Puffs as instructed every 4 hours as needed. - rosuvastatin (CRESTOR) 10 mg tablet Take 1 tablet by mouth daily at bedtime. - etodolac (LODINE) 400 mg tablet Take 1 tablet by mouth every other day. - Cholecalciferol, Vitamin D3, 125 mcg (5,000 unit) cap Take 1 capsule by mouth once daily. - ipratropium bromide (ATROVENT) 42 mcg (0.06 %) nasal spray Use 2 Sprays in the nose four times daily. prn - carboxymethylcellulose sodium (REFRESH OPHTHALMIC) Use 1 Drop in eyes as needed. - propylene glycol (SYSTANE COMPLETE OPHTHALMIC) Use 1 Drop in eyes as needed. - Azelastine HCl (OPTIVAR) 0.05 % ophthalmic solution Use 1 Drop in both eyes twice daily as needed (allergies). - famotidine (PEPCID ORAL) Take 1 tablet by mouth twice daily. - psyllium husk (METAMUCIL ORAL) Take 1 teaspoonful by mouth two times a day. - calcium carbonate (CALCIUM 600 ORAL) Take 600 mg by mouth once daily. - vit A,C,G-Jgxz-Axvene (PRESERVISION AREDS) 7,160-113-100 grqj-ca-uyps tab Take 1 tablet by mouth twice daily. - Melu-Cryt-NSC#1-C-Morris-Sukhi s-Bor (OSTEO BI-FLEX) 750-625-30 mg Tab Take 1 tablet by mouth twice daily. Meds Comments as of 04/01/2018: Preservision bid Problem List As Of Date 02/09/2025 Noted Resolved Solar Lentigines [ (more content not included)... Normal [facility] Bacteria Ur Culton 5 Bacteria identified Cx Nom (U) ORGANISM ID: 1 <10,000 CFU/ml Normal urogenital girish Normal [facility] Comment on above: Performed By: #### 6 30-4 ####[facility] LABCLIA [id number] [address] [place] 01-29-2025 CNPN Telephone (GLQ) ----- ANDRE LUTHER ([id number]) 1950 F Date Time Provider Department 01/29/25 TIKA MOREL GLQ During your visit today, we recorded the following information about you: Tika Morel RN 01/29/2025 9:50 AM Signed Spoke to Mrs. Luther. Experiencing urinary urgency and frequency x 5 days. Denies fever, chills, nausea, or vomiting. Urine culture ordered. Advised that it takes 2-3 days to receive results. Patient advised to push fluids but cut back 2-3 hours before bedtime to cut down on the amount of time they get up during the night. Advised to go to the nearest ER if she develops fever, chills, nausea, or vomiting. Patient verbalized understanding. All questions answered. Tika Morel field manager Nurse Department of Urology [facility] Allergies As of Date: 01/29/2025 Noted Allergy Reaction CEPHALOSPORINS 01/19/2008 2 - Rash CODEINE 01/10/2007 8 - GI Upset DUST 01/13/2007 9 - Itching NORTRIPTYLINE 10/24/2020 5 - Intolerance Comments: Elevated blood pressure and pulse. RAGWEED 01/13/2007 DOXYCYCLINE HYCLATE 04/01/2018 5 - Intolerance Comments: Reflux PYRIDIUM (PHENAZOPYRIDINE) 09/03/2019 14 - Other: See Comments Comments: dizziness Date Reviewed: 01/20/2025 Reviewed by: Phuong Norton MA - Fully Assessed Reason for Visit: Returning Patient's Call [408] Primary Visit Diagnosis:Urinary urgency [R39.15] Other Visit Diagnosis:Urinary frequency [R35.0] Order(s):BACTERIAL CULTURE, URINE [SQURCUL] Order #: [id number] FUTURE Prescriptions as of 01/29/2025 - gabapentin (NEURONTIN) 100 mg capsule Two capsules (200mg) by mouth every morning. - gabapentin (NEURONTIN) 300 mg capsule Take 1 capsule by mouth daily at bedtime for 180 days. - albuterol HFA (VENTOLIN HFA) 90 mcg/actuation inhaler Inhale 2 Puffs as instructed every 4 hours as needed. - rosuvastatin (CRESTOR) 10 mg tablet Take 1 tablet by mouth daily at bedtime. - etodolac (LODINE) 400 mg tablet Take 1 tablet by mouth every other day. - Cholecalciferol, Vitamin D3, 125 mcg (5,000 unit) cap Take 1 capsule by mouth once daily. - ipratropium bromide (ATROVENT) 42 mcg (0.06 %) nasal spray Use 2 Sprays in the nose four times daily. prn - carboxymethylcellulose sodium (REFRESH OPHTHALMIC) Use 1 Drop in eyes as needed. - propylene glycol (SYSTANE COMPLETE OPHTHALMIC) Use 1 Drop in eyes as needed. - Azelastine HCl (OPTIVAR) 0.05 % ophthalmic solution Use 1 Drop in both eyes twice daily as needed (allergies). - famotidine (PEPCID ORAL) Take 1 tablet by mouth twice daily. - psyllium husk (METAMUCIL ORAL) Take 1 teaspoonful by mouth two times a day. - calcium carbonate (CALCIUM 600 ORAL) Take 600 mg by mouth once daily. - vit A,C,U-Ivbj-Pzddnl (PRESERVISION AREDS) 7,160-113-100 jcnu-lq-elza tab Take 1 tablet by mouth twice daily. - Onwk-Rnkw-NAL#1-C-Morris-Sukhi s-Bor (OSTEO BI-FLEX) 750-625-30 mg Tab Take 1 tablet by mouth twice daily. Meds Comments as of 04/01/2018: Preservision bid Problem List As Of Date 01/29/2025 Noted Resolved Solar Lentigines [L81.4] 08/07/2011 06/22/2014 Seborrheic Keratosis [L82.1] 08/07/2011 06/22/2014 Nobles Angiomas [D18.01] 08/07/2011 06/22/2014 Cutaneous skin tags [L91.8] 08/07/2011 06/22/2014 Bilateral pseudophakia [Z96.1] 04/01/2012 09/20/2017 Pain in joint, lower leg [M25.569] 05/06/2012 09/20/2017 PCO (posterior capsular opacification), left [H*06/26/2012 09/20/2017 After-cataract, obscuring vision [H26.499] 04/20/2014 09/20/2017 Postmenopausal atrophic vaginitis [N95.2] 06/22/2014 09/08/2019 Primary osteoarthritis of left knee [M17.12] 08/09/2015 Mild intermittent asthma without complication [*08/09/2015 Anal or rectal pain [K62.89] 02/08/2017 09/20/2017 Osteopenia [M85.80] 07/28/2018 Malignant neoplasm of upper-outer quadrant of r*09/05/2018 GERD without esophagitis [K21.9] 06/11/2019 Elevated blood pressure reading without diagnos*08/18/2019 PVC (premature ventricular contraction) [I49.3] 09/03/2019 Abnormal stress test [R94.39] 09/03/2019 Allergy [T78.40XA] 04/26/2021 Rectocele [N81.6] 03/22/2023 Cystocele, midline [N81.11] 03/22/2023 Muscle weakness [M62.81] 03/22/2023 12/23/2023 Personal history of malignant neoplasm of breas*08/17/2024 Encounter Status:Closed by TIKA MOREL on 01/29/25 [facility] CNOVon 01-20-2025 CNOV Office Visit (UROLMN ) ----- ANDRE LUTHER ([id number]) 1950 F Date Time Provider Department 01/20/25 11:45 AM NIKOLE BAILEY During your visit today, we recorded the following information about you: Pulse Blood pressure Weight Height 76/minute 157/88 64.9 kg 1.549 m Nikole Bailey MD 01/21/2025 11:57 AM Signed UROLOGIC INITIAL EVALUATION Date Path Current Treatment 01.14.25 Non-invasive papillary urothelial carcinoma, high-grade. TURBT PROBLEM LIST: 1. ACTIVE PROBLEM LIST Primary Osteoarthritis of Left Knee Mild Intermittent Asthma Without Complication (Hcc) Osteopenia Malignant Neoplasm of Upper-Outer Quadrant of Right Breast in Female, Estrogen Receptor Positive (Hcc) Gerd Without Esophagitis Elevated Blood Pressure Reading Without Diagnosis of Hypertension Pvc (Premature Ventricular Contraction) Abnormal Stress Test Allergy Rectocele Cystocele, Midline Personal History of Malignant Neoplasm of Breast HISTORY OF PRESENT ILLNESS: Andre Luther is a 74 year old female who was first seen on 01.06.25 with new diagnosis of bladder mass. She is a very pleasant 74 yo female, who is active, and well, here with her . She is a never smoker, and no occupational exposure. 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 She denies any second hand exposure. She had a one time episode of hematuria, prompting an ER visit on 12.22.24, at which point there was a concern for a mass vs clot in the bladder. This was adjacent to the left UVJ. Patient still has uterus and adnexa per scan, without overt abnormalities. This was a non contrasted scan She did undergo a cystoscopy with an [facility] urologist who noted that this was a papillary mass likely malignancy and recommended TURBT> They are here to establish care She is otherwise healthy with GERD, and HTN, without any strong family history of malignancy She has history of breast cancer 1990s tx with lumpectomy and xrt, without recurrence Date Interval history 01.20.25 TaHG doing well after surgery PAST MEDICAL HISTORY: PAST MEDICAL HISTORY Diagnosis Date Asthma (HCC) Basal cell carcinoma 09/2024 nose Breast cancer (HCC) right s/p lumpectomy 08/2017, and radiation Macular cyst, hole, or pseudohole of retina Both eyes Osteopenia after menopause PVC (premature ventricular contraction) Shingles PAST SURGICAL HISTORY: PAST SURGICAL HISTORY Procedure Laterality Date BREAST BIOPSY INCISIONAL RIGHT Right 07/2018 BREAST LUMPECTOMY HX Right 09/15/2018 Right NL PM/SNBx: [id number], ER/AR+, HER2 Neg, Grade 1, IDC w/tubular features; 1/2nodes COLONOSCOPY 07/2007, 01/14 nevus 1980 face. POST-CATARACT LASER SURGERY 06/26/2012 Yag Capsulotomy OS VITRECTOMY FOR MACULAR HOLE Left 06/06/2011 L eye. VITRECTOMY MECHANICAL PARS PLANA Right 02/20/2012 [place] Vitrectomy ,MP, PCIOL OD ALLERGIES: ALLERGIES Allergen Reactions Cephalosporins Rash Codeine GI Upset Dust Itching Nortriptyline Intolerance Elevated blood pressure and pulse. Ragweed Doxycycline Hyclate Intolerance Reflux Pyridium [Phenazopy* Other: See Comments dizziness MEDICATIONS: Current Outpatient Medications on File Prior to Visit Medication Sig gabapentin (NEURONTIN) 100 mg capsule Two capsules (200mg) by mouth every morning. gabapentin (NEURONTIN) 300 mg capsule Take 1 capsule by mouth daily at bedtime for 180 days. albuterol HFA (VENTOLIN HFA) 90 mcg/actuation inhaler Inhale 2 Puffs as instructed every 4 hours as needed. rosuvastatin (CRESTOR) 10 mg tablet Take 1 tablet by mouth daily at bedtime. etodolac (LODINE) 400 mg tablet Take 1 tablet by mouth every other day. Cholecalciferol, Vitamin D3, 125 mcg (5,000 unit) cap Take 1 capsule by mouth once daily. ipratropium bromide (ATROVENT) 42 mcg (0.06 %) nasal spray Use 2 Sprays in the nose four times daily. prn carboxymethylcellulose sodium (REFRESH OPHTHALMIC) Use 1 Drop in eyes as needed. propylene glycol (SYSTANE COMPLETE OPHTHALMIC) Use 1 Drop in eyes as needed. Azelastine HCl (OPTIVAR) 0.05 % ophthalmic solution Use 1 Drop in both eyes twice daily as needed (allergies). famotidine (PEPCID ORAL) Take 1 tablet by mouth twice daily. psyllium husk (METAMUCIL ORAL) Take 1 teaspoonful by mouth two times a day. calcium carbonate (CALCIUM 600 ORAL) Take 600 mg by mouth once daily. vit A,C,I-Neld-Uurctv (PRESERVISION AREDS) 7,160-113-100 khtc-kk-lpsf tab Take 1 tablet by mouth twice daily. Uekd-Zdlk-VIN#1-C-Morris-Sukhi s-Bor (OSTEO BI-FLEX) 750-625-30 mg Tab Take 1 tablet by mouth twice daily. No current facility-administered medications on file prior to visit. SOCIAL HISTORY: Patient reports that she has never smoked. She has never used smokeless tobacco. She reports that she does not drink alcohol and does not use drugs. Social History Tobacco Use Smokin (more content not included)... Normal [facility] ANES POSTPROC EVALon 025 ANES POSTPROC EVAL HNO ID: [id number] Author: LEYDA CLAYTON MD Service: ? Author Type: Anesthesiologist Type: Anesthesia Postprocedure Evaluation Filed: 01/14/2025 17:48 Note Text: POST ANESTHESIA EVALUATION NOTE : 1950 Procedure Summary Date: 01/14/25 Room / Location: [address] Anesthesia Start: 1402 Anesthesia Stop: 1506 Procedure: RESECTION BLADDER TUMOR TRANSURETHRAL (Bladder) Diagnosis: Neoplasm of bladder (Neoplasm of bladder [D49.4]) Surgeons: Nikole Bailey MD Responsible Provider: Leyda Clayton MD Anesthesia Type: general ASA Status: 3 Anesthesia Type: general Airway Type: ETT Last Vitals Vitals Value Taken Time BP 133/56 01/14/251744 Temp 36 ?C (96.8 ?F) 01/14/25 171 Pulse 75 01/14/25 1745 Resp 17 01/14/25 174 SpO2 100 % 01/14/251744 Post Anesthesia Patient Status Patient Evaluation: PACU. PACU/ICU Patient Condition: stable. Neurological Status: aware and responsive. Pulmonary Status: breathing comfortably on supplemental oxygen Airway Control: returned to baseline unsupported. Cardiovascular Status: stable. Pain Management: clinically adequate Postoperative Hydration: acceptable. Intraoperative Events: no significant anesthesia events Post Operative Nausea/Vomiting Status: no significant post operative nausea or vomiting Recommendation: continue current plan of care. Anesthesia Observations No Documentation SIGNATURE: Leyda Clayton MD PATIENT NAME: Andre Luther DATE: January 14, 2025 TIME: 5:48 PM CSN: [id number] [facility] ANES PRE-OPon 01-14-2025 ANES PRE-OP HNO ID: [id number] Author: LEYDA CLAYTON MD Service: ? Author Type: Anesthesiologist Type: Anesthesia Preprocedure Evaluation Filed: 01/14/2025 13:37 Note Text: ANESTHESIOLOGY DAY OF SURGERY NOTE : 1950 Procedure Information Date/Time: 01/14/25 1330 Procedure: RESECTION BLADDER TUMOR TRANSURETHRAL (Bladder) Location: [address] [facility] Surgeons: Nikole Bailey MD Estimated body mass index is 26.64 kg/m? as calculated from the following: Height as of an earlier encounter on 01/14/25: 156.2 cm (5' 1.5). Weight as of an earlier encounter on 01/14/25: 65 kg (143 lb 4.8 oz). Most recent hematocrit and potassium results: Hematocrit 42.7 01/07/2025 Potassium 4.1 01/07/2025 Relevant Problems CARDIO (+) PVC (premature ventricular contraction) GI (+) GERD without esophagitis NEURO-PSYCH (+) Personal history of malignant neoplasm of breast PULMONARY (+) Mild intermittent asthma without complication (HCC) Other (+) Primary osteoarthritis of left knee I - PHYSICAL EVALUATION AIRWAY Patient intubated: No. Tracheostomy tube not present Mallampati: I. TM distance: >3 FB. Neck ROM: full ROM without neurological symptoms. Mouth opening: adequate. Short neck: no. Thick neck: no Strong present: no Lip Bite Test: I Microretrognathia/Microna gthia/Recessed Chin: No Additional exam findings: no II - ANESTHESIA PLAN ASA Score: 3 Anesthetic Plan: general Airway type: ETT The patient is not a current smoker. NPO Status: adequate Beta Dheeraj Administration of chronic beta dheeraj medication not planned. Monitoring Plan Monitoring plan: standard ASA. Post Procedure Analgesic Plan Postoperative analgesic plan: parenteral or oral opioids. Informed Consent Anesthetic risks, benefits, alternatives, personnel and consent discussed: yes. Patient / Responsible Alliance Party agrees to proceed: yes Patient / Surrogate agrees to blood products: blood products not planned Vitals Value Taken Time BP 150/75 01/14/25 1208 Pulse 77 01/14/25 1208 Resp 16 01/14/25 1208 Temp 36.4 ?C (97.5 ?F) 01/14/25 1208 SpO2 99 % 01/14/25 1208 Facility-Administered Medications as of 01/14/2025 Medication Dose Route Frequency lidocaine (PF) 10 mg/mL (1 %) 1-2 mg injection (XYLOCAINE) 0.1-0.2 mL INTRADERMAL PRN Or lidocaine 1% 0.25 mL subcutaneous j-tip syringe (XYLOCAINE) 0.25 mL SUBCUTANEOUS PRN lactated ringers iv infusion 5-30 mL/hr INTRAVENOUS CONTINUOUS NaCl 0.9% iv flush bag 20 mL INTRAVENOUS PRN vancomycin iv piggyback 1 g in D5W 200 mL (VANCOCIN) 0.015 g/kg/dose INTRAVENOUS Pre-Op Once [START ON 01/15/2025] gentamicin 80 mg in 0.9% NaCl 50 mL 80 mg INTRAVENOUS Translation Director to OR Outpatient Medications as of 01/14/2025 Medication Sig gabapentin (NEURONTIN) 100 mg capsule Two capsules (200mg) by mouth every morning. gabapentin (NEURONTIN) 300 mg capsule Take 1 capsule by mouth daily at bedtime for 180 days. albuterol HFA (VENTOLIN HFA) 90 mcg/actuation inhaler Inhale 2 Puffs as instructed every 4 hours as needed. rosuvastatin (CRESTOR) 10 mg tablet Take 1 tablet by mouth daily at bedtime. etodolac (LODINE) 400 mg tablet Take 1 tablet by mouth every other day. Cholecalciferol, Vitamin D3, 125 mcg (5,000 unit) cap Take 1 capsule by mouth once daily. ipratropium bromide (ATROVENT) 42 mcg (0.06 %) nasal spray Use 2 Sprays in the nose four times daily. prn carboxymethylcellulose sodium (REFRESH OPHTHALMIC) Use 1 Drop in eyes as needed. propylene glycol (SYSTANE COMPLETE OPHTHALMIC) Use 1 Drop in eyes as needed. Azelastine HCl (OPTIVAR) 0.05 % ophthalmic solution Use 1 Drop in both eyes twice daily as needed (allergies). famotidine (PEPCID ORAL) Take 1 tablet by mouth twice daily. psyllium husk (METAMUCIL ORAL) Take 1 teaspoonful by mouth two times a day. calcium carbonate (CALCIUM 600 ORAL) Take 600 mg by mouth once daily. vit A,C,Y-Vkxy-Ljpbwe (PRESERVISION AREDS) 7,160-113-100 svdh-ci-hzum tab Take 1 tablet by mouth twice daily. Kyyi-Jurg-CYJ#1-C-Morris-Sukhi s-Bor (OSTEO BI-FLEX) 750-625-30 mg Tab Take 1 tablet by mouth twice daily. I have interviewed and examined the patient. I have reviewed the medical record and/or the pre-anesthesia evaluation, pertinent labs, and test results. This contains updated information obtained within 48 hours of Surgery/Procedure. SIGNATURE: Leyda Clayton MD PATIENT NAME: Andre Luther DATE: January 14, 2025 TIME: 1:36 PM CSN: [id number] [facility] CNOVon 01-14-2025 CNOV Office Visit (UROLMN ) ----- ANDRE LUTHER ([id number]) 1950 F Date Time Provider Department 01/14/25 11:00 AM ALEJANDRO MARQUIS During your visit today, we recorded the following information about you: Pulse Blood pressure Weight Height 82/minute 156/90 65 kg 1.562 m Alejandro Marquis PA 01/14/2025 11:06 AM Signed UROLOGY SURGICAL HANDP SERVICE DATE: 01/14/2025 SERVICE TIME: 11:00 AM REFERRING PROVIDER: No referring provider defined for this encounter. PCP: Abhishek Huynh MD GENDER: SUBJECTIVE CHIEF COMPLAINT: Pre-op exam HISTORY OF PRESENT ILLNESS: Ms. Luther is a 74 year old female who presents for pre-op hANDP. She is scheduled for TURBT with Dr. Bailey on FUNCTIONAL STATUS: Walk a block or two on level ground (2.75 METs) Do moderate work around the house such as vacuuming, sweeping floors, or carrying in groceries (3.50 METs) Climb a flight of stairs or walk up a hill (5.50 METs) Participate in moderate recreational activities, such as golf, bowling, dancing, doubles tennis, or throwing a baseball or football (6.00 METs) Do heavy work around the house, such as scrubbing floors, lifting or moving heavy furniture (8.00 METs) No chest pain or SOB with above activtieis PAST MEDICAL HISTORY Diagnosis Date Asthma (HCC) Basal cell carcinoma 09/2024 nose Breast cancer (HCC) right s/p lumpectomy 08/2017, and radiation Macular cyst, hole, or pseudohole of retina Both eyes Osteopenia after menopause PVC (premature ventricular contraction) Shingles PAST SURGICAL HISTORY Procedure Laterality Date BREAST BIOPSY INCISIONAL RIGHT Right 07/2018 BREAST LUMPECTOMY HX Right 09/15/2018 Right NL PM/SNBx: [id number], ER/AR+, HER2 Neg, Grade 1, IDC w/tubular features; 1/2nodes COLONOSCOPY 07/2007, 01/14 nevus 1980 face. POST-CATARACT LASER SURGERY 06/26/2012 Yag Capsulotomy OS VITRECTOMY FOR MACULAR HOLE Left 06/06/2011 L eye. VITRECTOMY MECHANICAL PARS PLANA Right 02/20/2012 [place] Vitrectomy ,MP, PCIOL OD FAMILY HISTORY Problem Relation Age of Onset Cataract Mother other (osteopenia) Mother Osteopenia Stroke Mother Heart Father SC Lipids Father High Cholesterol other (Macular Degeneration) Maternal Grandfather Heart Attack Paternal Grandmother Heart Attack Paternal Grandfather Blood Clots Daughter Coronary Artery Disease Paternal Aunt Coronary Artery Disease Paternal Uncle Social History Tobacco Use Smoking status: Never Smokeless tobacco: Never Vaping Use Vaping status: Never Used Substance Use Topics Alcohol use: No Drug use: No REVIEW OF SYSTEMS: General: General: Well developed, well nourished. No acute distress HEENT: Negative for sore throat, difficulty swallowing. Negative for frequent or significant headaches, changes in vision or hearing. Cardiovascular: No history of cardiovascular symptoms or problems. No history of angina, CHF, SC, cardiac surgery of stents. Respiratory: Negative for current cough, dyspnea. No hx of pneumonia in the past six weeks Gastrointestinal: No history of PUD, abd pain, difficulty swallowing, GI bleed. +hx of GERD Renal: Negative for renal failure and No history of dialysis Musculoskeletal: Negative for joint pain or swelling, back pain or muscle pain. +arthritis Skin: Negative for lesions, rash and itching. Psychological: No history of psychiatric symptoms or problems. Neurologic: No history of TIA's, stroke, TIMBER CRUISER tumor, impaired sensorium, hemiplegia or paraplegia No neurological symptoms or problems. Hematology/Oncology: No history of bleeding or clotting disorder. Pt is not taking anti-coagulation or platelet medications. No history of hematological symptoms or problems. Endocrine: No history of endocrinological symptoms or problems No history of DM; has not taken steroids w/in past 30 days. Negative for excessive sweating, thirst or hunger PHYSICAL EXAM: General Appearance/ Constitutional: Well developed, well nourished, and in no apparent distress Head and Neck normal, no jugular venous extension, no thyromegaly, and no palpable mass Eyes: Pupils are equally round and reactive to light. Extraocular movements are intact. Respiratory: Clear to auscultation AND percussion bilaterally Cardiovascular: Normal, Regular rate and rhythm, and No murmurs S1 and S2 present GI: Soft, Non-tender, No masses, hepatosplenomegaly, and No lymphadenopathy Extremities: Radial and pedal pulses +2, no edema, extremities WNL Back: Normal back and mobility Neurological: Normal cognition and motor skills. Skin: Color, texture, turgor normal. VITALS: BP 156/90 (BP Site: Left Arm, BP Position: Sitting, BP Cuff Size: Regular Adult) Pulse 82 Ht 156.2 cm (5' 1.5) Wt 65 kg (143 lb 4.8 oz) BMI 26.64 kg/m? ALLERGIES: ALLERGIES Allergen Reactions Cephalosporins R (more content not included)... [facility] - Hematology and Cell countson 01-14-2025 Hemoglobin Ql (U) Negative Negative [facility] - Urinalysison Protein Ql (U) Negative Negative mg/dL [facility] No Panel Informationon 01-14 BILIRUBIN UA (POCT) Negative Negative [facility] CLARITY UA (POCT) Clear [facility] COLOR UA (POCT) Dark yellow [facility] GLUCOSE UA (POCT) Negative Negative mg/dL [facility] Interpretation and review of laboratory results Abnormal [facility] KETONE UA (POCT) Negative Negative mg/dL [facility] LEUKOCYTES UA (POCT) Trace Abnormal Negative [facility] NITRITE UA (POCT) Negative Negative [facility] PH UA (POCT) 7.5 4.5 - 8.0 [facility] SPECIFIC GRAVITY UA (POCT) 1.015 1.005 - 1.030 [facility] UROBILINOGEN UA (POCT) 0.2 Yesica l E.U./dL [facility] Location:[facility], [address] [place] [address], [address] [place] [address] POINT OF CARE [facility] OPERATIVE NOon 01-14-2025 OPERATIVE NO HNO ID: [id number] Author: NIKOLE BAILEY MD Service: Urology Author Type: Resident Type: Operative Report Filed: 01/14/2025 16:56 Note Text: ----- Attestation signed by Nikole Bailey MD at 01/14/2025 4:56 PM I was present for all critical parts of procedure. Small 2 cm tumor left wall, papillary without aggressive features. Post op gemcitabine instillation ----- OPERATIVE/PROCEDURE REPORT LOG ID: [id number] Surgery/Procedure Date: 01/14/2025 Incision/Procedure Start Time: 2:29 PM Incision Close/Procedure End Time: 2:45 PM Surgeon(s)/Proceduralist( s) and Voice Over Artist(s): Surgeons and Role: * Nikole Bailey MD - Primary * Nasra Flores MD - Resident - Assisting Procedure(s): Procedure(s) and Anesthesia Type: * RESECTION BLADDER TUMOR TRANSURETHRAL - Choice - Anesthesia Consult Anatomic Site: Bladder Approach: Endoscopic Anesthesia: Choice - Anesthesia Consult Operative Indications: This is a 74 year old female with a history of hematuria and suspicious bladder mass on cystoscopy and pre-operative CT Urogram, who after discussing the risks, benefits, and alternatives of the procedure has elected to pursue management of their condition via the aforementioned surgery. Intraoperative Findings: Examination under anesthesia: Unremarkable. Number of Tumors: 1 Location: left lateral wall. Tumor size: 2 cm. Morphology: papillary. Procedure Details: The patient was correctly identified and the operative plan was confirmed with the patient and the operative team. A weight appropriate dose of prophylactic antibiotics was administered intravenously prior to the procedure and sequential compression devices were applied to the lower extremities and activated prior to induction of anesthesia. The patient was placed in the dorsal lithotomy position. General anesthesia was induced. All pressure points were padded per protocol and the operative area was prepped and draped in the standard sterile fashion. An exam under anesthesia revealed mild urethral prolapse. The bladder was not fixed and the tumor was not palpable. The 24F rigid resectoscope was inserted with the visual obturator and complete cystourethroscopy was performed revealing the above-mentioned findings. Using the loop electrocautery, a complete resection of all visible lesions was performed down to the layers of the muscularis propria. The surrounding area of the tumor was completely fulgurated with careful attention to avoid the left ureteral orifice The bladder was drained and the specimen was removed and sent for pathology. The scope was inserted again, the area was found to be completely hemostatic. A Corley catheter was then inserted and there was clear return of urine. Gemcitabine chemotherapy was then instilled into the bladder under gravity and the Corley catheter was clamped. The patient tolerated the procedure well, emerged from anesthesia without incident, and was transferred to PACU in stable condition. Pre-Op/Pre-Procedure Diagnosis: Pre-Op Diagnosis Codes: * Neoplasm of bladder [D49.4] Post-Op/Post-Procedure Diagnosis: Post-Op Diagnosis Codes: * Neoplasm of bladder [D49.4] Estimated Blood Loss: 1 mls Specimens: ID Type Source Tests Collected by Time Destination A : bladder tumor Tissue Bladder, Transurethral Resection SURGICAL PATHOLOGY Nikole Bailey MD 01/14/2025 2:41 PM Implantable Devices: None Drains: 16Fr corley catheter Complications: None Qualifier: None Dr. Flores performed the procedure under direct supervision of Dr. Bailey for the entirety of the case. The patient was accompanied to the next level of care by a member of the surgical team pending completion of this operative note. SIGNATURE: Nasra Flores MD PATIENT NAME: Andre Luther DATE: January 14, 2025 TIME: 2:51 PM PAGER/CONTACT #: [phone] [facility] Pathology biopsy report Cuco (Tiss)on 01-14-2025 CASE REPORT [facility] Comment on above: Order Comment: Speci men Type: TISSUE SPECIMENOrdering Facility: [facility] Address: [address] [place], [place] [address] [address] Result Comment: Surg ica Pathology Report Case: [id number] Authorizing Provider: Nikole Bailey MD Collected: 01/14/2025 02:41 PM Ordering Location: Admitting Received: 01/14/2025 03:12 PM Pathologist: Marialuisa Erwin MD Specimen: Bladder, Transurethral Resection, bladder tumor Performed By: #### 6 6121-5 ####[facility] LABCLIA [id number] [address] [place] [address] [facility] [place] CLINICAL HISTORY Normal [facility] Comment on above: Order Comment: Speci men Type: TISSUE SPECIMENOrdering Facility: [facility] Address: [address] [place] [address] Result Comment: Pre- op diagnosis: Neoplasm of bladder [D49.4] Performed By: #### 6 6121-5 ####[facility] LABCLIA [id number] [address] DIAGNOSIS COMMENT The slide is reviewe d with Dr. Parkinson who concurs. [facility] Comment on above: Order Comment: Speci men Type: TISSUE SPECIMENOrdering Facility: [facility] Address: [address] [place] [address] Performed By: #### 6 6121-5 ####[facility] LABIA [id number] [address] FINAL DIAGNOSIS [facility] Comment on above: Order Comment: Speci men Type: TISSUE SPECIMENOrdering Facility: [facility] Address: [address] [place] [address] Result Comment: Demarcusd madi, transurethral resection: - Non-invasive papillary urothelial carcinoma, high-grade. - Muscularis propria is not present for evaluation. JOHN/gini 01/18/2025 at 1218 EDT Performed By: #### 6 6121-5 ####[facility] LABCLIA [id number] [address] [address] [facility] FINAL PERFORMING LAB Normal [facility] Comment on above: Order Comment: Speci men Type: TISSUE SPECIMENOrdering Facility: [facility] Address: [address] [place] [address] Result Comment: Diag nostic interpretation performed at: [facility], [address] [place], [place] [address] [address] CLIA# [id number] Lock Operator: Justyn Morfin MD Performed By: #### 6 6121-5 ####[facility] LABCLIA [id number] [address] [place] GROSS DESCRIPTION [facility] Comment on above: Order Comment: Speci men Type: TISSUE SPECIMENOrdering Facility: [facility] Address: [address] [place] [address] Result Comment: Joana cardoso, Transurethral Resection Received in formalin are multiple pieces of carlton-pink, soft and rubbery tissue aggregating to 1.7 x 1.1 x 0.5 cm. Totally submitted in one cassette. [place] [address] FFS 01/14/2025 8:02 PM Performed By: #### 6 6121-5 ####[facility] LABCLIA [id number] [address] [place] 01-12-2025 CNPN Telephone (JOSELYN) ----- ANDRE LUTHER ([id number]) 1950 F Date Time Provider Department 01/12/25 FELICITAS DEWEY During your visit today, we recorded the following information about you: Felicitas Dewey RN 01/12/2025 5:54 PM Signed ----- Message from Jaqueline Sagastume sent at 01/11/2025 10:21 AM EDT ----- Regarding: Medication Contact: Not available between 12 and 2 today Needs to know what medications she should stop prior to surgery. She is not on blood thinners and has taken no over the counter things that would thing blood. Felicitas Dewey RN 01/12/2025 5:58 PM Signed Spoke with patient and went over Preop instructions and medications. Patient only taking neurontin since last Saturday and is ok to take up to surgery. Informed her to let anesthesia know she is taking. All questions answered. Felicitas Dewey, MSN, RN, A-GNP-C Allergies As of Date: 01/12/2025 Noted Allergy Reaction CEPHALOSPORINS 01/19/2008 2 - Rash CODEINE 01/10/2007 8 - GI Upset DUST 01/13/2007 9 - Itching NORTRIPTYLINE 10/24/2020 5 - Intolerance Comments: Elevated blood pressure and pulse. 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 - gabapentin (NEURONTIN) 300 mg capsule Take 1 capsule by mouth daily at bedtime for 180 days. - albuterol HFA (VENTOLIN HFA) 90 mcg/actuation inhaler Inhale 2 Puffs as instructed every 4 hours as needed. - rosuvastatin (CRESTOR) 10 mg tablet Take 1 tablet by mouth daily at bedtime. - etodolac (LODINE) 400 mg tablet Take 1 tablet by mouth every other day. - Cholecalciferol, Vitamin D3, 125 mcg (5,000 unit) cap Take 1 capsule by mouth once daily. - ipratropium bromide (ATROVENT) 42 mcg (0.06 %) nasal spray Use 2 Sprays in the nose four times daily. prn - carboxymethylcellulose sodium (REFRESH OPHTHALMIC) Use 1 Drop in eyes as needed. - propylene glycol (SYSTANE COMPLETE OPHTHALMIC) Use 1 Drop in eyes as needed. - Azelastine HCl (OPTIVAR) 0.05 % ophthalmic solution Use 1 Drop in both eyes twice daily as needed (allergies). - famotidine (PEPCID ORAL) Take 1 tablet by mouth twice daily. - psyllium husk (METAMUCIL ORAL) Take 1 teaspoonful by mouth two times a day. - calcium carbonate (CALCIUM 600 ORAL) Take 600 mg by mouth once daily. - vit A,C,Q-Kjzi-Lnharm (PRESERVISION AREDS) 7,160-113-100 oivb-fk-nhaa tab Take 1 tablet by mouth twice daily. - Yhvk-Pfhp-JRT#1-C-Morris-Sukhi s-Bor (OSTEO BI-FLEX) 750-625-30 mg Tab Take 1 tablet by mouth twice daily. Meds Comments as of 04/01/2018: Preservision bid Problem List As Of Date 01/12/2025 Noted Resolved Solar Lentigines [L81.4] 08/07/2011 06/22/2014 Seborrheic Keratosis [L82.1] 08/07/2011 06/22/2014 Nobles Angiomas [D18.01] 08/07/2011 06/22/2014 Cutaneous skin tags [L91.8] 08/07/2011 06/22/2014 Bilateral pseudophakia [Z96.1] 04/01/2012 09/20/2017 Pain in joint, lower leg [M25.569] 05/06/2012 09/20/2017 PCO (posterior capsular opacification), left [H*06/26/2012 09/20/2017 After-cataract, obscuring vision [H26.499] 04/20/2014 09/20/2017 Postmenopausal atrophic vaginitis [N95.2] 06/22/2014 09/08/2019 Primary osteoarthritis of left knee [M17.12] 08/09/2015 Mild intermittent asthma without complication [*08/09/2015 Anal or rectal pain [K62.89] 02/08/2017 09/20/2017 Osteopenia [M85.80] 07/28/2018 Malignant neoplasm of upper-outer quadrant of r*09/05/2018 GERD without esophagitis [K21.9] 06/11/2019 Elevated blood pressure reading without diagnos*08/18/2019 PVC (premature ventricular contraction) [I49.3] 09/03/2019 Abnormal stress test [R94.39] 09/03/2019 Allergy [T78.40XA] 04/26/2021 Rectocele [N81.6] 03/22/2023 Cystocele, midline [N81.11] 03/22/2023 Muscle weakness [M62.81] 03/22/2023 12/23/2023 Personal history of malignant neoplasm of breas*08/17/2024 Encounter Status:Closed by FELICITAS DEWEY on 01/12/[address] [facility] [address] Kidney WO and W contrast [employer] 01-08-2025 IMPRESSION: 1. There is a 1.1 cm enhancing polypoid lesion along the left posterior wall of the bladder near the insertion of the left ureter. Differential for this would include transitional cell carcinoma. Recommend further evaluation with cystoscopy. 2. No evidence of renal mass or collecting system mass. 3. Sigmoid colon diverticulosis. 4. Small hiatal hernia. 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[facility] Transcribe Date/Time: Jan 08 2025 10:26A Dictated by : MIKE JARAMILLO MD This examination was interpreted and the report reviewed and electronically signed by: MIKE JARAMILLO MD on Jan 08 2025 10:40AM [facility] RADIOLOGY SYNGO * * *Final Report* * * DATE OF EXAM: Jan 08 2025 10:07AM [facility] 0560 - CT UROGRAM WO/W IVCON / PROCEDURE REASON: Screening for genitourinary condition * * * * Physician Interpretation * * * * EXAMINATION: CT ABDOMEN AND PELVIS WITHOUT AND WITH IV CONTRAST, INCLUDING EXCRETORY PHASE IMAGING (CT UROGRAM) 3D RECONSTRUCTIONS CLINICAL HISTORY: Hematuria. Bladder tumor TECHNIQUE: CT urogram protocol including unenhanced, renal parenchymal phase and excretory phase renal imaging was obtained following IV contrast. No oral contrast was given. 3D image post-processing was performed and archived at the request of the referring physician, on the CT scanner workstation without concurrent physician supervision. MQ: CTU_2 Contrast: IV: 100 ml of Omnipaque 350 Oral Contrast: None CT Radiation dose: Integrated dose-length product (DLP) for this visit = 1302.06 mGy*cm. CT Dose Reduction Employed: 2. Automated exposure control (AEC) and/or iterative reconstruction was used. COMPARISON: Outside CT abdomen and pelvis 12/22/2024 RESULT: Kidneys and urinary tract: Right: There are no renal calculi or masses. The opacified calices, renal pelvis and ureter are normal without dilation, filling defect, or stricture. Left: There are no renal calculi or masses. The opacified calices, renal pelvis and ureter are normal without dilation, filling defect, or stricture. Bladder: There is a 1.1 cm enhancing polypoid lesion along the left posterior wall the bladder adjacent to the insertion of the left ureter (5:156). No bladder stone. Abdomen and Pelvis: Liver: No mass. Calcification along the dome of the right lobe of the liver. There is a 4 mm subcentimeter low-attenuation lesion in the right lobe of the liver (4:30) to small to fully characterize on this study. Biliary: No bile duct dilation. Gallbladder is unremarkable. Spleen: No mass. No splenomegaly. Pancreas: No mass or duct dilation. Adrenals: No mass. GI tract: No dilation or wall thickening. Scattered diverticula within the sigmoid colon. Lymph nodes: No abdominal or pelvic lymphadenopathy. Mesentery/Peritoneum: No ascites or mass. Retroperitoneum: No mass. Vasculature: - Abdominal aorta and iliac arteries: No aneurysm. - Celiac and SMA: Patent without stenosis. - Portal venous system (SMV, splenic vein, portal vein and branches): Patent. - Hepatic veins: Patent. Uterus is unremarkable. Pelvis: No mass, ascites or fluid collection. Bones and Soft Tissues: No significant finding. Lower thorax: Small hiatal hernia. Lung bases are unremarkable. Localizer images: No additional findings. [facility] Provider, [facility] - 01/08/2025 * * *Final Report* * * DATE OF EXAM: Jan 08 2025 10:07AM [facility] 0560 - CT UROGRAM WO/W IVCON / PROCEDURE REASON: Screening for genitourinary condition * * * * Physician Interpretation * * * * EXAMINATION: CT ABDOMEN AND PELVIS WITHOUT AND WITH IV CONTRAST, INCLUDING EXCRETORY PHASE IMAGING (CT UROGRAM) 3D RECONSTRUCTIONS CLINICAL HISTORY: Hematuria. Bladder tumor TECHNIQUE: CT urogram protocol including unenhanced, renal parenchymal phase and excretory phase renal imaging was obtained following IV contrast. No oral contrast was given. 3D image post-processing was performed and archived at the request of the referring physician, on the CT scanner workstation without concurrent physician supervision. MQ: CTU_2 Contrast: IV: 100 ml of Omnipaque 350 Oral Contrast: None CT Radiation dose: Integrated dose-length product (DLP) for this visit = 1302.06 mGy*cm. CT Dose Reduction Employed: 2. Automated exposure control (AEC) and/or iterative reconstruction was used. COMPARISON: Outside CT abdomen and pelvis 12/22/2024 RESULT: Kidneys and urinary tract: Right: There are no renal calculi or masses. The opacified calices, renal pelvis and ureter are normal without dilation, filling defect, or stricture. Left: There are no renal calculi or masses. The opacified calices, renal pelvis and ureter are normal without dilation, filling defect, or stricture. Bladder: There is a 1.1 cm enhancing polypoid lesion along the left posterior wall the bladder adjacent to the insertion of the left ureter (5:156). No bladder stone. Abdomen and Pelvis: Liver: No mass. Calcification along the dome of the right lobe of the liver. There is a 4 mm subcentimeter low-attenuation lesion in the right lobe of the liver (4:30) to small to fully characterize on this study. Biliary: No bile duct dilation. Gallbladder is unremarkable. Spleen: No mass. No splenomegaly. Pancreas: No mass or duct dilation. Adrenals: No mass. GI tract: No dilation or wall thickening. Scattered diverticula within the sigmoid colon. Lymph nodes: No abdominal or pelvic lymphadenopathy. Mesentery/Peritoneum: No ascites or mass. Retroperitoneum: No mass. Vasculature: - Abdominal aorta and iliac arteries: No aneurysm. - Celiac and SMA: Patent without stenosis. - Portal venous system (SMV, splenic vein, portal vein and branches): Patent. - Hepatic veins: Patent. Uterus is unremarkable. Pelvis: No mass, ascites or fluid collection. Bones and Soft Tissues: No significant finding. Lower thorax: Small hiatal hernia. Lung bases are unremarkable. Localizer images: No additional findings. IMPRESSION IMPRESSION: 1. There is a 1.1 cm enhancing polypoid lesion along the left posterior wall of the bladder near the insertion of the left ureter. Differential for this would include transitional cell carcinoma. Recommend further evaluation with cystoscopy. 2. No evidence of renal mass or collecting system mass. 3. Sigmoid colon diverticulosis. 4. Small hiatal hernia. 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 Transcribe Date/Time: Jan 08 2025 10:26A Dictated by : MIKE JARAMILLO MD This examination was interpreted and the report reviewed and electronically signed by: MIKE JARAMILLO MD on Jan 08 2025 10:40AM EST [facility] Radiology Study observation (narrative) [facility] CT Kidney WO and W contrast IVOrdered By: Ccf Provider on 01-08-2025 [facility] [address] UROGRAM WO/W IVCONon 12-29 CT UROGRAM WO/W IVCON * * *Final Report* * * DATE OF EXAM: Jan 08 2025 10:07AM [facility] 0560 - CT UROGRAM WO/W IVCON / PROCEDURE REASON: Screening for genitourinary condition * * * * Physician Interpretation * * * * EXAMINATION: CT ABDOMEN AND PELVIS WITHOUT AND WITH IV CONTRAST, INCLUDING EXCRETORY PHASE IMAGING (CT UROGRAM) 3D RECONSTRUCTIONS CLINICAL HISTORY: Hematuria. Bladder tumor TECHNIQUE: CT urogram protocol including unenhanced, renal parenchymal phase and excretory phase renal imaging was obtained following IV contrast. No oral contrast was given. 3D image post-processing was performed and archived at the request of the referring physician, on the CT scanner workstation without concurrent physician supervision. MQ: CTU_2 Contrast: IV: 100 ml of Omnipaque 350 Oral Contrast: None CT Radiation dose: Integrated dose-length product (DLP) for this visit = 1302.06 mGy*cm. CT Dose Reduction Employed: 2. Automated exposure control (AEC) and/or iterative reconstruction was used. COMPARISON: Outside CT abdomen and pelvis 12/22/2024 RESULT: Kidneys and urinary tract: Right: There are no renal calculi or masses. The opacified calices, renal pelvis and ureter are normal without dilation, filling defect, or stricture. Left: There are no renal calculi or masses. The opacified calices, renal pelvis and ureter are normal without dilation, filling defect, or stricture. Bladder: There is a 1.1 cm enhancing polypoid lesion along the left posterior wall the bladder adjacent to the insertion of the left ureter (5:156). No bladder stone. Abdomen and Pelvis: Liver: No mass. Calcification along the dome of the right lobe of the liver. There is a 4 mm subcentimeter low-attenuation lesion in the right lobe of the liver (4:30) to small to fully characterize on this study. Biliary: No bile duct dilation. Gallbladder is unremarkable. Spleen: No mass. No splenomegaly. Pancreas: No mass or duct dilation. Adrenals: No mass. GI tract: No dilation or wall thickening. Scattered diverticula within the sigmoid colon. Lymph nodes: No abdominal or pelvic lymphadenopathy. Mesentery/Peritoneum: No ascites or mass. Retroperitoneum: No mass. Vasculature: - Abdominal aorta and iliac arteries: No aneurysm. - Celiac and SMA: Patent without stenosis. - Portal venous system (SMV, splenic vein, portal vein and branches): Patent. - Hepatic veins: Patent. Uterus is unremarkable. Pelvis: No mass, ascites or fluid collection. Bones and Soft Tissues: No significant finding. Lower thorax: Small hiatal hernia. Lung bases are unremarkable. Localizer images: No additional findings. IMPRESSION: 1. There is a 1.1 cm enhancing polypoid lesion along the left posterior wall of the bladder near the insertion of the left ureter. Differential for this would include transitional cell carcinoma. Recommend further evaluation with cystoscopy. 2. No evidence of renal mass or collecting system mass. 3. Sigmoid colon diverticulosis. 4. Small hiatal hernia. 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[facility] Transcribe Date/Time: Jan 08 2025 10:26A Dictated by : MIKE JARAMILLO MD This examination was interpreted and the report reviewed and electronically signed by: MIKE JARAMILLO MD on Jan 08 2025 10:40AM EST [id number] Normal [facility] Bacteria Ur Culton Bacteria identified Cx Nom (U) ORGANISM ID: 1 <10,000 CFU/ml Normal urogenital girish Normal [facility] Comment on above: Performed By: #### 6 30-4 ####[facility] LABCLIA [id number] [place] [address] [place] CBC panel Auto (Bld)on 01-07 Erythrocyte distribution width (RBC) [Ratio] 12.0 % Normal 11.5-15.0 [facility] Comment on above: Order Comment: Speci men Type: BLOOD SPECIMENOrdering Facility: [facility] Address: [address] [place] [address] Performed By: #### 5 8410-2 ####[facility] MILLICENT [id number] [address] [place] Hematocrit (Bld) [Volume fraction] 42.7 % Normal 36.0-46.0 [facility] Comment on above: Order Comment: Speci men Type: BLOOD SPECIMENOrdering Facility: [facility] Address: [address] [place] [address] Performed By: #### 5 8410-2 ####[facility]OSPITALGOPALRoddy [id number] [place] [address] [place] Hemoglobin (Bld) [Mass/Vol] 14.7 g/dL Normal 11.5-15.5 [facility] Comment on above: Order Comment: Speci men Type: BLOOD SPECIMENOrdering Facility: [facility] Address: [address] [place] [address] Performed By: #### 5 8410-2 ####[facility]OSPITALGOPALRoddy [id number] [place] [address] [place] MCH (RBC) [Entitic mass] 33.2 pg Normal 26.0-34.0 [facility] Comment on above: Order Comment: Speci men Type: BLOOD SPECIMENOrdering Facility: [facility] Address: [address] [place] [address] Performed By: #### 5 8410-2 ####[facility]OSPITALGOPALLIA [id number] [place] [address] [place] MCHC (RBC) [Mass/Vol] 34.4 g/dL Normal 30.5-36.0 [facility] Comment on above: Order Comment: Speci men Type: BLOOD SPECIMENOrdering Facility: [facility] Address: [address] [place] [address] Performed By: #### 5 8410-2 ####[facility] ZOILAWNCLIA [id number] [place] [address] [place] MCV (RBC) [Entitic vol] 96.4 fL Normal 80.0-100.0 C [facility] Comment on above: Order Comment: Speci men Type: BLOOD SPECIMENOrdering Facility: [facility] Address: [address] [place] [address] Performed By: #### 5 8410-2 ####[facility]PITALGOPALLIA [id number] [place] [address] [place] Nucleated RBC (Bld) [#/Vol] 10*3/uL Normal <0.01 [facility] Comment on above: Order Comment: Speci men Type: BLOOD SPECIMENOrdering Facility: [facility] Address: [address] [place] [address] Performed By: #### 5 8410-2 ####[facility] CENTERLIA [id number] [place] [address] [place] Platelet mean volume (Bld) [Entitic vol] 10.8 fL Normal 9.0-12.7 [facility] Comment on above: Order Comment: Speci men Type: BLOOD SPECIMENOrdering Facility: [facility] Address: [address] [place] [address] Performed By: #### 5 8410-2 ####[facility] HOSPITALWNCLIA [id number] [place] [address] [place] Platelets (Bld) [#/Vol] 178 10*3/uL Normal 150-400 [facility] Comment on above: Order Comment: Speci men Type: BLOOD SPECIMENOrdering Facility: [facility] Address: [address] [place] [address] Performed By: #### 5 8410-2 ####[facility]OSPITALNCLIA [id number] [place] [address] [place] RBC (Bld) [#/Vol] 4.43 10*6/uL Normal 3.90-5.20 [facility] Comment on above: Order Comment: Speci men Type: BLOOD SPECIMENOrdering Facility: [facility] Address: [address] [place] [address] Performed By: #### 5 8410-2 ####[facility] [id number] [place] [address] [place] WBC (Bld) [#/Vol] 4.80 10*3/uL Normal 3.70-11.00 [facility] Comment on above: Order Comment: Speci men Type: BLOOD SPECIMENOrdering Facility: [facility] Address: [address] [place] [address] Performed By: #### 5 8410-2 ####[facility] [id number] [place] [address] [place] CYTOLOGY NON-GYNon 5 AP DISCLAIMER Normal [facility] Comment on above: Order Comment: Speci men Type: URINE SPECIMENOrdering Facility: [facility] Address: [address] [place] [address] Result Comment: Jessie wilks Developed Test (LDT) Disclaimer: Performance characteristics of immunohistochemical, immunofluorescent, and chromogenic in-situ hybridization tests have been determined by the performing laboratory within [facility]'s [facility] Pathology and Laboratory Medicine Department ([facility], [facility], [facility], [facility], [facility], [facility], or [facility]) in a manner consistent with CLIA requirements. One or more of these tests may not have been cleared or approved by the FDA. [facility] is regulated under CLIA as qualified to perform high-complexity testing. These tests are used for clinical purposes. These should not be regarded as investigational or for research. Positive and negative controls stain appropriately. Performed By: #### C YTONON ####[facility] LABCLIA [id number] [address] [address] [place] CASE REPORT Normal [facility] Comment on above: Order Comment: Speci men Type: URINE SPECIMENOrdering Facility: [facility] Address: [address] [place] [address] Result Comment: [facility] Cytology Report Case: [id number] Authorizing Provider: Nikole Bailey MD Collected: 01/07/2025 07:25 AM Ordering Location: Urology Received: 01/07/2025 09:54 AM Pathologist: Santosh Vences MD Specimen: Urine, Midstream Performed By: #### C YTONON ####[facility] LABCLIA [id number] [address] [address] [place] CLINICAL HISTORY bladder tumor Normal [facility] Comment on above: Order Comment: Speci men Type: URINE SPECIMENOrdering Facility: [facility] Address: [address] [place] [address] Performed By: #### C YTONON ####[facility] LABCLIA [id number] [address] [address] [place] FINAL DIAGNOSIS Normal [facility] Comment on above: Order Comment: Speci men Type: URINE SPECIMENOrdering Facility: [facility] Address: [address] [place] [address] Result Comment: A - Urine, Midstream Negative for high-grade urothelial carcinoma. at 1142 EDT Performed By: #### C YTONON ####[facility] LABCLIA [id number] [address] [address] [place] FINAL PERFORMING LAB Normal [facility] Comment on above: Order Comment: Speci men Type: URINE SPECIMENOrdering Facility: [facility] Address: [address] [place], [place] [address] Result Comment: Tech nical component, mantel craftsman screening performed at: [facility], [address] [place], [place] [address] CLIA: [id number] Diagnostic interpretation performed at: [facility], [address] [place] [address] CLIA# [id number] Lock Operator: Justyn Morfin MD Performed By: #### C YTONON ####[facility] LABCLIA [id number] [place] [address] [place] GROSS DESCRIPTION Normal [facility] Comment on above: Order Comment: Speci men Type: URINE SPECIMENOrdering Facility: [facility] Address: [address] [place] [address] Result Comment: A. U rine, Midstream 20 cc clear yellow fluid with scant particles. ThinPrep prepared. Performed By: #### C YTDINA ####[facility] LABCLIA [id number] [place] [address] [place] Comprehensive metabolic 2000 panelon 01-07-2025 Albumin [Mass/Vol] 4.5 g/dL Normal 3.9-4.9 [facility] Comment on above: Order Comment: Speci men Type: BLOOD SPECIMENOrdering Facility: [facility] Address: [address] [place] [address] Performed By: #### 2 4323-8 ####[facility]ITALNC[facility] [id number] [place] [address] [place] ALP [Catalytic activity/Vol] 76 U/L Normal 34-123 [facility] Comment on above: Order Comment: Speci men Type: BLOOD SPECIMENOrdering Facility: [facility] Address: [address] [place] [address] Performed By: #### 2 4323-8 ####[facility]ITALNCLIA [id number] [place] [address] [place] ALT [Catalytic activity/Vol] 14 U/L Normal 7-38 [facility] Comment on above: Order Comment: Speci men Type: BLOOD SPECIMENOrdering Facility: [facility] Address: [address] [place] [address] Performed By: #### 2 4323-8 ####[facility] MILLTOWNCLIA [id number] [place] [address] [place] Anion gap [Moles/Vol] 11 mmol/L Normal 8-15 [facility] Comment on above: Order Comment: Speci men Type: BLOOD SPECIMENOrdering Facility: [facility] Address: [address] [place] [address] Performed By: #### 2 4323-8 ####[facility] HOSPITALWNCLIA [id number] [place] [address] [place] AST [Catalytic activity/Vol] 20 U/L Normal 13-35 [facility] Comment on above: Order Comment: Speci men Type: BLOOD SPECIMENOrdering Facility: [facility] Address: [address] [place] [address] Performed By: #### 2 4323-8 ####[facility] MILLTOWNCLIA [id number] [place] [address] [place] Bilirubin [Mass/Vol] 0.7 mg/dL Normal 0.2-1.3 [facility] Comment on above: Order Comment: Speci men Type: BLOOD SPECIMENOrdering Facility: [facility] Address: [address] [place] [address] Performed By: #### 2 4323-8 ####[facility] MILLTOWNCLIA [id number] [place] [address] [place] Calcium [Mass/Vol] 10.1 mg/dL Normal 8.5-10.2 [facility] Comment on above: Order Comment: Speci men Type: BLOOD SPECIMENOrdering Facility: [facility] Address: [address] [place] [address] Performed By: #### 2 4323-8 ####[facility] HOSPITALWNCLIA [id number] [place] [address] [place] Chloride [Moles/Vol] 106 mmol/L Normal 98-107 [facility] Comment on above: Order Comment: Speci men Type: BLOOD SPECIMENOrdering Facility: [facility] Address: [address] [place] [address] Performed By: #### 2 4323-8 ####[facility] CENTERLIA [id number] [place] [address] [place] CO2 [Moles/Vol] 26 mmol/L Normal 22-30 [facility] Comment on above: Order Comment: Speci men Type: BLOOD SPECIMENOrdering Facility: [facility] Address: [address] [place] [address] Performed By: #### 2 4323-8 ####[facility] [id number] [place] [address] [place] Creatinine [Mass/Vol] 0.80 mg/dL Normal 0.58-0.96 [facility] Comment on above: Order Comment: Speci men Type: BLOOD SPECIMENOrdering Facility: [facility] Address: [address] [place] [address] Performed By: #### 2 4323-8 ####[facility]IA [id number] [place] [address] [facility] Creatinine and Glomerular filtration rate.predicted panel (S/P/Bld) 78 mL/min/1.73m??? Normal >=60 [facility] Comment on above: Order Comment: Speci men Type: BLOOD SPECIMENOrdering Facility: [facility] Address: [address] [place] [address] Result Comment: Elin mated Glomerular Filtration Rate (eGFR) is calculated using the 2020 CKD-EPI creatinine equation. This equation utilizes serum creatinine, sex, and age as parameters. The creatinine assay has traceable calibration to isotope dilution-mass spectrometry. Refer to KDIGO guidelines for clinical interpretation. In patients with unstable renal function, e.g. those with acute kidney injury, the eGFR may not accurately reflect actual GFR. Performed By: #### 2 4323-8 ####[facility] HOSPITALWNCLIA [id number] [place] [address] [place] Glucose [Mass/Vol] 103 mg/dL High 74-99 [facility] Comment on above: Order Comment: Speci men Type: BLOOD SPECIMENOrdering Facility: [facility] Address: [address] [place] [address] Result Comment: The [place] [employer] (ADA) provides guidance for cutoff values for fasting glucose and random glucose. The ADA defines fasting as no caloric intake for at least 8 hours. Fasting plasma glucose results between 100 to 125 [...] Standards of Medical Care in Diabetes 2016, [place] [employer]. Diabetes Care. 2016.39(Suppl 1). Performed By: #### 2 4323-8 ####[facility]OSPITALNCA [id number] [place] [address] [place] Potassium [Moles/Vol] 4.1 mmol/L Normal 3.7-5.1 [facility] Comment on above: Order Comment: Speci men Type: BLOOD SPECIMENOrdering Facility: [facility] Address: [address] [place] [address] Performed By: #### 2 4323-8 ####[facility] [id number] [place] [address] [place] Protein [Mass/Vol] 6.9 g/dL Normal 6.3-8.0 [facility] Comment on above: Order Comment: Speci men Type: BLOOD SPECIMENOrdering Facility: [facility] Address: [address] [place] [address] Performed By: #### 2 4323-8 ####[facility] MILLICENT [id number] [address] [place] Sodium [Moles/Vol] 143 mmol/L Normal 136-144 [facility] Comment on above: Order Comment: Speci men Type: BLOOD SPECIMENOrdering Facility: [facility] Address: [address] [place] [address] Performed By: #### 2 4323-8 ####[facility] MILLICENT [id number] [address] [place] Urea nitrogen [Mass/Vol] 13 mg/dL Normal 7-21 [facility] Comment on above: Order Comment: Speci men Type: BLOOD SPECIMENOrdering Facility: [facility] Address: [address] [place] [address] Performed By: #### 2 4323-8 ####[facility] JOSEPHNICKIE [id number] [address] [place] PT panel Coag (PPP)on 2024 INR Coag (PPP) [Relative time] 1.0 {INR} Normal 0.9-1.3 [facility] Comment on above: Order Comment: Speci men Type: BLOOD SPECIMENOrdering Facility: [facility] Address: [address] [place] [address] Result Comment: Yuliet min K Antagonist (VKA) Therapeutic Range: INR 2 to 3 (Target INR of 2.5) Note: For patients treated with VKA drugs, such as warfarin, the [place] [employer] 2012 Guideline recommends a therapeutic INR range of 2 to 3 (target INR of 2.5). This recommendation includes high-risk patients with antiphospholipid syndrome with previous arterial or venous thromboembolism, current-generation mechanical or bioprosthetic aortic heart valve replacement. Note: Patients with mechanical aortic valve replacement and additional risk factors for thromboembolic events (atrial fibrillation, previous thromboembolism, LV dysfunction, hypercoagulable conditions) or an older generation mechanical AVR (i.e., ball in-Cage) or any mechanical MVR should have a INR therapeutic range of 2.5 to 3.5 (target INR of 3). Nirali LOCKHART, et al. Chest 2012, 141:7S-47S Kristie MATHUR et al. [facility] 2017, 70: 252-289 Performed By: #### 3 4528-0, 83496-0 ####[facility] CENTERLIA [id number] [place] [address] [place] PT Coag (PPP) [Time] 10.7 s Normal <13.1 [facility] Comment on above: Order Comment: Speci men Type: BLOOD SPECIMENOrdering Facility: [facility] Address: [address] [place] [address] Performed By: #### 3 4528-0, 66715-5 ####[facility] [id number] [place] [address] [place] Urinalysis complete panel (U )on 01-07-2025 Bacteria LM.HPF (Urine sed) [#/Area] Negative Normal Negative [facility] Comment on above: Order Comment: Speci men Type: URINE SPECIMENOrdering Facility: [facility] Address: [address] [place] [address] Performed By: #### 2 4356-8 ####[facility] LABCLIA [id number] [place] [address] [place] Bilirubin Ql (U) Negative Normal Negative [facility] [facility] Comment on above: Order Comment: Speci men Type: URINE SPECIMENOrdering Facility: [facility] Address: [address] [place] [address] Performed By: #### 2 4356-8 ####[facility] LABCLIA [id number] [place] [address] [place] Clarity (Unsp spec) Clear Normal Clear [facility] Comment on above: Order Comment: Speci men Type: URINE SPECIMENOrdering Facility: [facility] Address: [address] [place] [address] Performed By: #### 2 4356-8 ####[facility] LABCLIA [id number] [facility] [address] [place] [address] [place] Color (U) Yellow Normal Yellow [facility] Comment on above: Order Comment: Speci men Type: URINE SPECIMENOrdering Facility: [facility] Address: [address] [place] [address] Performed By: #### 2 4356-8 ####[facility] LABCLIA [id number] [address] [place] [address] [place] Epithelial cells LM.HPF (Urine sed) [#/Area] None Seen Normal [facility] Comment on above: Order Comment: Speci men Type: URINE SPECIMENOrdering Facility: [facility] Address: [address] [place] [address] Performed By: #### 2 4356-8 ####[facility] LABCLIA [id number] [address] [place] [address] [place] Glucose Test strip (U) [Mass/Vol] Negative Normal Negative [facility] Comment on above: Order Comment: Speci men Type: URINE SPECIMENOrdering Facility: [facility] Address: [address] [place] [address] Performed By: #### 2 4356-8 ####[facility] LABCLIA [id number] [facility] [address] [place] [address] [place] Hemoglobin Ql (U) Negative Normal Negative [facility] Comment on above: Order Comment: Speci men Type: URINE SPECIMENOrdering Facility: [facility] Address: [address] [place], [place] [id number] Performed By: #### 2 4356-8 ####[facility] LABCLIA [id number] [place] [address] [place] Hyaline casts (Urine sed) [#/Area] 0 /[LPF] Normal 0 /LPF [facility] Comment on above: Order Comment: Speci men Type: URINE SPECIMENOrdering Facility: [facility] Address: [address] [place] [address] Performed By: #### 2 4356-8 ####[facility] LABCLIA [id number] [address], [facility] [place] Ketones Ql (U) Negative Normal Negative [facility] Comment on above: Order Comment: Speci men Type: URINE SPECIMENOrdering Facility: [facility] Address: [address] [place] [address] Performed By: #### 2 4356-8 ####[facility] LABCLIA [id number] [place] [address] [place] Leukocyte esterase Test strip Ql (U) Negative Normal Negative [facility] Comment on above: Order Comment: Speci men Type: URINE SPECIMENOrdering Facility: [facility] Address: [address] [place] [address] Performed By: #### 2 4356-8 ####[facility] LABCLIA [id number] [address], [place] [address] [place] Nitrite Ql (U) Negative Normal Negative [facility] Comment on above: Order Comment: Speci men Type: URINE SPECIMENOrdering Facility: [facility] Address: [address] [place] [address] Performed By: #### 2 4356-8 ####[facility] LABCLIA [id number] [place] [id number] [place] pH (U) 7.5 [pH] Normal <8.5 [facility] Comment on above: Order Comment: Speci men Type: URINE SPECIMENOrdering Facility: [facility] Address: [address] [place] [address] Performed By: #### 2 4356-8 ####[facility] LABIA [id number] [place] [address] [place] Protein (U) [Mass/Vol] Negative Normal Negative Cl [facility] Comment on above: Order Comment: Speci men Type: URINE SPECIMENOrdering Facility: [facility] Address: [address] [place] [address] Performed By: #### 2 4356-8 ####[facility] LABIA [id number] [place] [address] [place] RBC LM.HPF (Urine sed) [#/Area] 0-2 /HPF Normal 0-2 /HPF [facility] Comment on above: Order Comment: Speci men Type: URINE SPECIMENOrdering Facility: [facility] Address: [address] [place] [address] Performed By: #### 2 4356-8 ####[facility] [id number] [place] [address] [place] Specific gravity (U) [Rel density] 1.015 Normal 1.005-1.030 [facility] Comment on above: Order Comment: Speci men Type: URINE SPECIMENOrdering Facility: [facility] Address: [address] [place] [address] Performed By: #### 2 4356-8 ####[facility] LABIA [id number] [address] [place] Urobilinogen Ql (U) 0.2 EU/dL Normal 0.2-1.0 EU/dL [facility] Comment on above: Order Comment: Speci men Type: URINE SPECIMENOrdering Facility: [facility] Address: [address] [place] [address] Performed By: #### 2 4356-8 ####[facility] LABIA [id number] [place] [address] [place] WBC LM.HPF (Urine sed) [#/Area] 0-5 /HPF Normal 0-5 /HPF [facility] Comment on above: Order Comment: Speci men Type: URINE SPECIMENOrdering Facility: [facility] Address: [address] [place] [address] [place] [address] Performed By: #### 2 4356-8 ####[facility] LABCLIA [id number] [address] [place] aPTT PPPon 01-07-2025 aPTT Coag (PPP) [Time] 27.6 s Normal 23.0-32.4 Cl [facility] Comment on above: Order Comment: Speci men Type: BLOOD SPECIMENOrdering Facility: [facility] Address: [address] [place] [address] [place] [address] Performed By: #### 3 4528-0, 91805-9 ####[facility] [id number] [address] OF [facility] CNOVon 01-06-2025 CNOV Office Visit (UROLMN ) ----- ANDRE LUTHER ([id number]) 1950 F Date Time Provider Department 01/06/25 4:15 PM NIKOLE BAILEY During your visit today, we recorded the following information about you: Nikole Bailey MD 01/07/2025 2:19 PM Signed UROLOGIC INITIAL EVALUATION PROBLEM LIST: 1. ACTIVE PROBLEM LIST Primary Osteoarthritis of Left Knee Mild Intermittent Asthma Without Complication (Hcc) Osteopenia Malignant Neoplasm of Upper-Outer Quadrant of Right Breast in Female, Estrogen Receptor Positive (Hcc) Gerd Without Esophagitis Elevated Blood Pressure Reading Without Diagnosis of Hypertension Pvc (Premature Ventricular Contraction) Abnormal Stress Test Allergy Rectocele Cystocele, Midline Personal History of Malignant Neoplasm of Breast HISTORY OF PRESENT ILLNESS: Andre Luther is a 74 year old female who was first seen on 01.06.25 with new diagnosis of bladder mass. She is a very pleasant 74 yo female, who is active, and well, here with her . She is a never smoker, and no occupational exposure. 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 She denies any second hand exposure. She had a one time episode of hematuria, prompting an ER visit on 12.22.24, at which point there was a concern for a mass vs clot in the bladder. This was adjacent to the left UVJ. Patient still has uterus and adnexa per scan, without overt abnormalities. This was a non contrasted scan She did undergo a cystoscopy with an [facility] urologist who noted that this was a papillary mass likely malignancy and recommended TURBT> They are here to establish care She is otherwise healthy with GERD, and HTN, without any strong family history of malignancy She has history of breast cancer 1990s tx with lumpectomy and xrt, without recurrence PAST MEDICAL HISTORY: PAST MEDICAL HISTORY Diagnosis Date Asthma Basal cell carcinoma 09/2024 nose Breast cancer (HCC) right s/p lumpectomy 08/2017, and radiation Macular cyst, hole, or pseudohole of retina Both eyes Osteopenia after menopause PVC (premature ventricular contraction) Shingles PAST SURGICAL HISTORY: PAST SURGICAL HISTORY Procedure Laterality Date BREAST BIOPSY INCISIONAL RIGHT Right 07/2018 BREAST LUMPECTOMY HX Right 09/15/2018 Right NL PM/SNBx: [id number], ER/AR+, HER2 Neg, Grade 1, IDC w/tubular features; 1/2nodes COLONOSCOPY 07/2007, 01/14 nevus 1980 face. POST-CATARACT LASER SURGERY 06/26/2012 Yag Capsulotomy OS VITRECTOMY FOR MACULAR HOLE Left 06/06/2011 L eye. VITRECTOMY MECHANICAL PARS PLANA Right 02/20/2012 [place] Vitrectomy ,MP, PCIOL OD ALLERGIES: ALLERGIES Allergen Reactions Cephalosporins Rash Codeine GI Upset Dust Itching Nortriptyline Intolerance Elevated blood pressure and pulse. Ragweed Doxycycline Hyclate Intolerance Reflux Pyridium [Phenazopy* Other: See Comments dizziness MEDICATIONS: Current Outpatient Medications on File Prior to Visit Medication Sig gabapentin (NEURONTIN) 100 mg capsule Two capsules (200mg) by mouth every morning. gabapentin (NEURONTIN) 300 mg capsule Take 1 capsule by mouth daily at bedtime for 180 days. albuterol HFA (VENTOLIN HFA) 90 mcg/actuation inhaler Inhale 2 Puffs as instructed every 4 hours as needed. rosuvastatin (CRESTOR) 10 mg tablet Take 1 tablet by mouth daily at bedtime. etodolac (LODINE) 400 mg tablet Take 1 tablet by mouth every other day. Cholecalciferol, Vitamin D3, 125 mcg (5,000 unit) cap Take 1 capsule by mouth once daily. ipratropium bromide (ATROVENT) 42 mcg (0.06 %) nasal spray Use 2 Sprays in the nose four times daily. prn carboxymethylcellulose sodium (REFRESH OPHTHALMIC) Use 1 Drop in eyes as needed. propylene glycol (SYSTANE COMPLETE OPHTHALMIC) Use 1 Drop in eyes as needed. Azelastine HCl (OPTIVAR) 0.05 % ophthalmic solution Use 1 Drop in both eyes twice daily as needed (allergies). famotidine (PEPCID ORAL) Take 1 tablet by mouth twice daily. psyllium husk (METAMUCIL ORAL) Take 1 teaspoonful by mouth two times a day. calcium carbonate (CALCIUM 600 ORAL) Take 600 mg by mouth once daily. vit A,C,J-Btfd-Cjzfbv (PRESERVISION AREDS) 7,160-113-100 dcjb-xp-ftzr tab Take 1 tablet by mouth twice daily. Xfbs-Gnkw-VGU#1-C-Morris-Sukhi s-Bor (OSTEO BI-FLEX) 750-625-30 mg Tab Take 1 tablet by mouth twice daily. No current facility-administered medications on file prior to visit. SOCIAL HISTORY: Patient reports that she has never smoked. She has never used smokeless tobacco. She reports that she does not drink alcohol and does not use drugs. Social History Tobacco Use Smoking status: Never Smokeless tobacco: Never Vaping Use Vaping status: Never Used Substance Use Topics Alcohol use: No Drug use: No FAMILY HISTORY: FAMILY HISTORY Problem Relation Age of Onset Cataract Mother other (osteopenia) Mo (more content not included)... Normal [facility] - Hematology and Cell countson 01-06-2025 Hemoglobin Ql (U) Trace-intact Abnormal Negative [facility] - Urinalysison Protein Ql (U) Negative Negative mg/dL [facility] No Panel Informationon 01-06 BILIRUBIN UA (POCT) Negative Negative [facility] CLARITY UA (POCT) Clear [facility] COLOR UA (POCT) Light yellow [facility] GLUCOSE UA (POCT) Negative Negative mg/dL [facility] Interpretation and review of laboratory results Abnormal [facility] KETONE UA (POCT) Negative Negative mg/dL [facility] LEUKOCYTES UA (POCT) Negative Negative [facility] NITRITE UA (POCT) Negative Negative [facility] PH UA (POCT) 7.5 4.5 - 8.0 [facility] SPECIFIC GRAVITY UA (POCT) 1.01 1.005 - 1.030 [facility] UROBILINOGEN UA (POCT) 0.2 Yesica l E.U./dL [facility] Location:[facility], [address] [place] [address] POINT OF CARE [facility] Urine Cultureon 12-29-2024 URC Culture exhibits no growth. Normal [facility] Comment on above: Performed By: #### M 100.2200 #### [facility] [address] [place], [place], [address] Abdomen/Pelvis without Conto n 12-22-2024 Abdomen/Pelvis without Cont [facility] Services [address] [place], [place] [address] Abdomen/Pelvis without Cont MR#: [id number] Acct: [id number] Name: ANDRE LUTHER Rep #: [id number] : 1950 F 74 From: Hunter Clifford MD PCP: Dr. Abhishek Huynh MD Status: [facility] ER Study: Abdomen/Pelvis without Cont Date of Exam: 11/29 02/21 Exam# [id number] Ordering Dr: Srinivasa Cruz DO EXAM: CT abdomen and pelvis without contrast CLINICAL HISTORY: Hematuria COMPARISON: None available TECHNIQUE: Noncontrast CT of the abdomen and pelvis with coronal and sagittal reformatted images FINDINGS: Platelike area of atelectasis or scarring at the left lower lobe and adjacent lingula. The liver, gallbladder, adrenal glands, kidneys, pancreas and spleen appear within limits. No renal stones, hydronephrosis or perinephric stranding. No evidence of renal lesion identified on noncontrast imaging. Small hiatal hernia. No bowel dilation or free air. Diverticulosis without diverticulitis. The appendix is not identified, no secondary signs. The uterus and adnexa appear within limits. Around 1.8 cm high density focus left side of the bladder adjacent to the area of the ureterovesical junction axial 153, sagittal 78 and coronal 58 may represent blood products, hemorrhage, blood clot with possibility of bladder lesion not excluded. Recommend urology consult and further workup. The bladder is nondistended without evidence of wall thickening. No calcified bladder stone identified. No ureteral stone identified. No free fluid. Abdominal aorta within limits without aneurysm. No adenopathy identified. The visualized osseous structures appear within limits. CT/Abdomen/Pelvis without Cont IMPRESSION: Around 1.8 cm high density focus left side of the bladder adjacent to the area of the ureterovesical junction axial 153, sagittal 78 and coronal 58 may represent blood products, hemorrhage, blood clot with possibility of bladder lesion not excluded. Recommend urology consult and further workup. Reading Location: [id number] CC: Dr. Srinivasa Cruz DO; Dr. Abhishek Huynh MD 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: Signed Normal [facility] Basic Metabolic Profile (BMP )on 12-22-2024 BUN/CRE 22.9 RATIO High 10-20 [facility] Comment on above: Performed By: #### L 300.3900, L300.4310, L500.2500, L100.0100 #### [facility] [address] [place], [address] Calcium [Mass/Vol] 9.9 mg/dL Normal 7.6-11.0 [facility] Comment on above: Performed By: #### L 300.3900, L300.4310, L500.2500, L100.0100 #### [facility] [address] [place], [address] Chloride [Moles/Vol] 104 mmol/L Normal 98-108 [facility] Comment on above: Performed By: #### L 300.3900, L300.4310, L500.2500, L100.0100 #### [facility] [address] [place], [address] CO2 [Moles/Vol] 25.8 mmol/L Normal 21.0-32.0 [facility] Comment on above: Performed By: #### L 300.3900, L300.4310, L500.2500, L100.0100 #### [facility] [address] [place], [address] Creatinine [Mass/Vol] 0.80 mg/dL Normal 0.70-1.20 [facility] Comment on above: Performed By: #### L 300.3900, L300.4310, L500.2500, L100.0100 #### [facility] [address] [place], [address] ECRCL 58.46 ml/min Normal 50-250 [facility] Comment on above: Performed By: #### L 300.3900, L300.4310, L500.2500, L100.0100 #### [facility] [address] [place], [address] GAP 12 Normal 5-15 [facility] Comment on above: Performed By: #### L 300.3900, L300.4310, L500.2500, L100.0100 #### [facility] [address] [place], [address] GFR/1.73 sq M.predicted among non-blacks MDRD (S/P/Bld) [Vol rate/Area] 78 mL/min/{1.73_m2} Normal >60 [facility] Comment on above: Result Comment: mL/m in/1.73m2 CKD-EPI Creatinine Equation (2020) Performed By: #### L 300.3900, L300.4310, L500.2500, L100.0100 #### [facility] [address] [place], [address] Glucose [Mass/Vol] 109 mg/dL High 70-99 [facility] Comment on above: Performed By: #### L 300.3900, L300.4310, L500.2500, L100.0100 #### [facility] [address] [place], [address] Potassium [Moles/Vol] 3.9 mmol/L Normal 3.3-5.1 [facility] Comment on above: Performed By: #### L 300.3900, L300.4310, L500.2500, L100.0100 #### [facility] [address] [place], [address] Sodium [Moles/Vol] 142 mmol/L Normal 133-145 [facility] Comment on above: Performed By: #### L 300.3900, L300.4310, L500.2500, L100.0100 #### [facility] [address] [place], [address] Urea nitrogen [Mass/Vol] 18 mg/dL Normal 4-19 [facility] Comment on above: Performed By: #### L 300.3900, L300.4310, L500.2500, L100.0100 #### [facility] [address] [place], [address] CBC W/Diff, Automatedon 03-2 -2024 Absolute Lymph 2.23 X10 3/uL Normal 0.83-4.51 [facility] Comment on above: Performed By: #### L 300.3900, L300.4310, L500.2500, L100.0100 #### [facility] [address] [place], [address] Absolute Neut 3.0 X10 3/uL Normal 2.0-7.7 [facility] Comment on above: Performed By: #### L 300.3900, L300.4310, L500.2500, L100.0100 #### [facility] [address] [place], [address] Basophils/100 WBC (Bld) 0.7 % Normal 0-1 [facility] Comment on above: Performed By: #### L 300.3900, L300.4310, L500.2500, L100.0100 #### [facility] [address] [place], [address] Eosinophils/100 WBC (Bld) 3.3 % Normal 0-5 [facility] Comment on above: Performed By: #### L 300.3900, L300.4310, L500.2500, L100.0100 #### [facility] [address] [place], [address] Erythrocyte distribution width (RBC) [Ratio] 12.0 % Normal 11.6-14.6 [facility] Comment on above: Performed By: #### L 300.3900, L300.4310, L500.2500, L100.0100 #### [facility] [address] [place], [address] Hematocrit (Bld) [Volume fraction] 41.3 % Normal 37-47 [facility] Comment on above: Performed By: #### L 300.3900, L300.4310, L500.2500, L100.0100 #### [facility] [address] [place], [address] Hemoglobin (Bld) [Mass/Vol] 13.9 g/dL Normal 12.0-15.0 [facility] Comment on above: Performed By: #### L 300.3900, L300.4310, L500.2500, L100.0100 #### [facility] [address] [place], [address] IG% 1.300 High 0.0-0.9 [facility] Comment on above: Result Comment: IG% - Immature Granulocytes (promyelocytes, myelocytes and metamyelocytes) > 1% indicates that a LEFT SHIFT is Present. Performed By: #### L 300.3900, L300.4310, L500.2500, L100.0100 #### [facility] [address] [place], [address] Lymphocytes/100 WBC (Bld) 36.6 % Normal 19-41 [facility] Comment on above: Performed By: #### L 300.3900, L300.4310, L500.2500, L100.0100 #### [facility] [address] [place], [address] MCH (RBC) [Entitic mass] 33.7 pg High 27.0-32.0 [facility] Comment on above: Performed By: #### L 300.3900, L300.4310, L500.2500, L100.0100 #### [facility] [address] [place], [address] MCHC (RBC) [Mass/Vol] 33.7 g/dL Normal 32-36 [facility] Comment on above: Performed By: #### L 300.3900, L300.4310, L500.2500, L100.0100 #### [facility] [address] [place], [address] MCV (RBC) [Entitic vol] 100.0 fL High 81-99 [facility] Comment on above: Performed By: #### L 300.3900, L300.4310, L500.2500, L100.0100 #### [facility] [address] [place], [address] Monocytes/100 WBC (Bld) 9.0 % Normal 0-10 [facility] Comment on above: Performed By: #### L 300.3900, L300.4310, L500.2500, L100.0100 #### [facility] [address] [place], [address] Neutrophils/100 WBC (Bld) 49.1 % Normal 47-70 [facility] Comment on above: Performed By: #### L 300.3900, L300.4310, L500.2500, L100.0100 #### [facility] [address] [place], [address] Nucleated RBC (Bld) [#/Vol] 0 10*3/uL Normal 0-5 [facility] Comment on above: Performed By: #### L 300.3900, L300.4310, L500.2500, L100.0100 #### [facility] [address] [place], [address] Platelet mean volume (Bld) [Entitic vol] 11.2 fL Normal 6.2-12.0 [facility] Comment on above: Performed By: #### L 300.3900, L300.4310, L500.2500, L100.0100 #### [facility] [address] [place], [address] Platelets (Bld) [#/Vol] 189 10*3/uL Normal 150-450 [facility] Comment on above: Performed By: #### L 300.3900, L300.4310, L500.2500, L100.0100 #### [facility] [address] [place], [address] RBC (Bld) [#/Vol] 4.13 10*6/uL Low 4.2-5.4 [facility] Comment on above: Performed By: #### L 300.3900, L300.4310, L500.2500, L100.0100 #### [facility] [address] [place], [address] RDW SD 43.8 fl Normal 35.1-43.9 [facility] Comment on above: Performed By: #### L 300.3900, L300.4310, L500.2500, L100.0100 #### [facility] [address] [place], [address] WBC (Bld) [#/Vol] 6.1 10*3/uL Normal 4.4-11.0 [facility] Comment on above: Performed By: #### L 300.3900, L300.4310, L500.2500, L100.0100 #### [facility] [address] [place], [address] CNPNon 12-22-2024 CNPN Telephone (FAMPWS) ----- ANDRE LUTHER ([id number]) 1950 F Date Time Provider Department 12/22/24 ABHISHEK HUYNH During your visit today, we recorded the following information about you: Marily Sol LPN 12/22/2024 8:17 AM Signed Patient Azael calling last evening at 11 pm went to the bathroom and had hematuria. She was not having any pain or nothing unusual. He took her to [facility] ER for eval. She had CT done and showed possible clot or mass bladder. ER wanted her to see Urology NATASHA. is going to call [facility] or [facility] to see who he can get his scheduled an appt with. He was asking if Dr Huynh knew anyone she should be seeing? Offered ER follow up appt he wanted to see what he could do for appt, said did not need referral. Please advise Abhishek Huynh MD 12/22/2024 8:19 AM Signed Any of the urologist at either location is ok. If they want us to assist in setting up, let us know. Call if any worsening of symptoms. LudwigEsthela palacio RN 12/22/2024 8:38 AM Signed phoned and given provider's message below reports he spoke with Medicare who told him Dr. Estrada Dodge, urology/surgeon is covered and he can schedule appt. asking how he can get the CT that was done at [facility] sent to Dr. Dodge. Advised to call [facility] medical records to request this. agreeable. Allergies As of Date: 12/22/2024 Noted Allergy Reaction CEPHALOSPORINS 01/19/2008 2 - Rash CODEINE 01/10/2007 8 - GI Upset DUST 01/13/2007 9 - Itching NORTRIPTYLINE 10/24/2020 5 - Intolerance Comments: Elevated blood pressure and pulse. RAGWEED 01/13/2007 DOXYCYCLINE HYCLATE 04/01/2018 5 - Intolerance Comments: Reflux PYRIDIUM (PHENAZOPYRIDINE) 09/03/2019 14 - Other: See Comments Comments: dizziness Date Reviewed: 10/09/2024 Reviewed by: Zain Perez MA - Fully Assessed Reason for Visit: Patient Update [1234] Patient Question [5607] Prescriptions as of 12/22/2024 - gabapentin (NEURONTIN) 100 mg capsule Two capsules (200mg) by mouth every morning. - gabapentin (NEURONTIN) 300 mg capsule Take 1 capsule by mouth daily at bedtime for 180 days. - albuterol HFA (VENTOLIN HFA) 90 mcg/actuation inhaler Inhale 2 Puffs as instructed every 4 hours as needed. - rosuvastatin (CRESTOR) 10 mg tablet Take 1 tablet by mouth daily at bedtime. - etodolac (LODINE) 400 mg tablet Take 1 tablet by mouth every other day. - Cholecalciferol, Vitamin D3, 125 mcg (5,000 unit) cap Take 1 capsule by mouth once daily. - ipratropium bromide (ATROVENT) 42 mcg (0.06 %) nasal spray Use 2 Sprays in the nose four times daily. prn - carboxymethylcellulose sodium (REFRESH OPHTHALMIC) Use 1 Drop in eyes as needed. - propylene glycol (SYSTANE COMPLETE OPHTHALMIC) Use 1 Drop in eyes as needed. - Azelastine HCl (OPTIVAR) 0.05 % ophthalmic solution Use 1 Drop in both eyes twice daily as needed (allergies). - famotidine (PEPCID ORAL) Take 1 tablet by mouth twice daily. - psyllium husk (METAMUCIL ORAL) Take 1 teaspoonful by mouth two times a day. - calcium carbonate (CALCIUM 600 ORAL) Take 600 mg by mouth once daily. - vit A,C,K-Couw-Whmlpc (PRESERVISION AREDS) 7,160-113-100 pywj-wi-nftj tab Take 1 tablet by mouth twice daily. - Urxr-Qpdn-QRX#1-C-Morris-Sukhi s-Bor (OSTEO BI-FLEX) 750-625-30 mg Tab Take 1 tablet by mouth twice daily. Meds Comments as of 04/01/2018: Preservision bid Problem List As Of Date 12/22/2024 Noted Resolved Solar Lentigines [L81.4] 08/07/2011 06/22/2014 Seborrheic Keratosis [L82.1] 08/07/2011 06/22/2014 Nobles Angiomas [D18.01] 08/07/2011 06/22/2014 Cutaneous skin tags [L91.8] 08/07/2011 06/22/2014 Bilateral pseudophakia [Z96.1] 04/01/2012 09/20/2017 Pain in joint, lower leg [M25.569] 05/06/2012 09/20/2017 PCO (posterior capsular opacification), left [H*06/26/2012 09/20/2017 After-cataract, obscuring vision [H26.499] 04/20/2014 09/20/2017 Postmenopausal atrophic vaginitis [N95.2] 06/22/2014 09/08/2019 Primary osteoarthritis of left knee [M17.12] 08/09/2015 Mild intermittent asthma without complication [*08/09/2015 Anal or rectal pain [K62.89] 02/08/2017 09/20/2017 Osteopenia [M85.80] 07/28/2018 Malignant neoplasm of upper-outer quadrant of r*09/05/2018 GERD without esophagitis [K21.9] 06/11/2019 Elevated blood pressure reading without diagnos*08/18/2019 PVC (premature ventricular contraction) [I49.3] 09/03/2019 Abnormal stress test [R94.39] 09/03/2019 Allergy [T78.40XA] 04/26/2021 Rectocele [N81.6] 03/22/2023 Cystocele, midline [N81.11] 03/22/2023 Muscle weakness [M62.81] 03/22/2023 12/23/2023 Personal history of malignant neoplasm of breas*08/17/2024 Encounter Status:Closed by Esthela LUDWIG on 12/22/24 Normal [facility] Partial Thromboplast Timeon 12-22-2024 aPTT Coag (Bld) [Time] 31.5 s Normal 24.1-36.2 [facility] Comment on above: Performed By: #### L 300.3900, L300.4310, L500.2500, L100.0100 #### [facility] [address] [place], [address] Prothrombin Time w/INRon INR Coag (PPP) [Relative time] 1.0 {INR} Normal [facility] Comment on above: Performed By: #### L 300.3900, L300.4310, L500.2500, L100.0100 #### [facility] [address] [place], [address] PT Coag (PPP) [Time] 13.6 s Normal 11.7-14.9 [facility] Comment on above: Performed By: #### L 300.3900, L300.4310, L500.2500, L100.0100 #### [facility] [address] [place], [address] Urinalysis, Completeon 12-22 RBC > 100 SEEN Normal 0-5 [facility] Comment on above: Order Comment: COLOR OF URINE MAY AFFECT DIPSTICK RESULTS. CLEAN CATCH Result Comment: Micr oscopic field is filled. Other elements may be obscured. Performed By: #### L 400.0001 #### [facility] [address] [place], [address] BACTERIA 1+ /hpf Normal None Seen [facility] Comment on above: Order Comment: COLOR OF URINE MAY AFFECT DIPSTICK RESULTS. CLEAN CATCH Performed By: #### L 400.0001 #### [facility] [address] [place], [address] WBC 0-5 SEEN Normal 0-5 [facility] Comment on above: Order Comment: COLOR OF URINE MAY AFFECT DIPSTICK RESULTS. CLEAN CATCH Performed By: #### L 400.0001 #### [facility] [address] [place], [address] EPI,SQUAMOUS 0 SEEN Normal 5-10 [facility] Comment on above: Order Comment: COLOR OF URINE MAY AFFECT DIPSTICK RESULTS. CLEAN CATCH Performed By: #### L 400.0001 #### [facility] [address] [place], [address] Mucus Ql (Urine sed) 0 SEEN Normal [facility] Comment on above: Order Comment: COLOR OF URINE MAY AFFECT DIPSTICK RESULTS. CLEAN CATCH Performed By: #### L 400.0001 #### [facility] [address] [place], [address] Absolute neutrophil countOrd ered By: Srinivasa Cruz on 12-21-2024 Neutrophils (Bld) [#/Vol] 3.0 10*3/uL 2.0-7.7 [facility] Anion gap in Serum or Plasma Ordered By: Srinivasa Cruz on 12-21-2024 Anion gap [Moles/Vol] 12 mmol/L 5-15 [facility] BUN/creatinine ratioOrdered By: Srinivasa Cruz on 12-21-2024 Urea nitrogen/Creatinine [Mass ratio] 22.9 mg/mg High 10-20 [facility] Basophil percentageOrdered B y: Srinivasa Cruz on 12-21-2024 Basophils/100 WBC (Bld) 0.7 % 0-1 [facility] Bilirubin Test strip Ql (U)O rdered By: Srinivasa Cruz on 12-21-2024 Bilirubin Ql (U) 1 mg/dL High Negative [facility] Comment on above: COLOR OF URINE MAY A FFECT DIPSTICK RESULTS. Carbon dioxide, total [Moles /volume] in Central venous bloodOrdered By: Srinivasa Cruz on 12-21-2024 CO2 [Moles/Vol] 25.8 mmol/L 21.0-32.0 [facility] Chloride assayOrdered By: Estuardo Cruz on 12-21-2024 Chloride [Moles/Vol] 104 mmol/L 98-108 [facility] Emergency Department Summary on 12-21-2024 Emergency Department Summary [facility] Medical Records Department [address] [place] [address] Emergency Department Summary 12/21/24 MR#: [id number] Acct: [id number] Name: ANDRE LUTHER Rep #: [id number] : 1950 74 From: Srinivasa Cruz DO PCP: Dr. Abhishek Huynh MD Status:DEP ER Location: ED HPI History of Present Illness Chief Complaint: Complaint Informant: patient Onset/Context/Timing Onset: Today Context: Sudden Onset Timing: Continuous Quality: Red bloody Location: Urine Worsened by: Nothing Relieved by: Nothing Narrative Narrative: Patient presents with episode of hematuria that began tonight. Patient states she went to the bathroom and noted blood and possibly some clots after she urinated. Patient denies any pain. Patient denies any fevers or chills. Patient denies any nausea or vomiting. Patient states that the episode. Patient does not take any anticoagulants. Patient denies any dysuria. Patient denies any urinary frequency. Patient denies any back or flank pain. [facility] Medical History (Updated 12/22/24 @ 00:[address] Srinivasa Cruz, DO) Breast cancer High cholesterol Home Medications ???Medication ???Instructions ???Recorded ???Last Taken ???Type etodolac 400 mg tablet 400 mg PO Q12H 06/10/24 Unknown Hi story gabapentin 300 mg capsule 300 mg PO DAILY 06/10/24 Unknown H istory rosuvastatin 10 mg tablet 10 mg PO QHS 06/10/24 Unknown Hist ory Allergy/AdvReac Type Severity Reaction Status Date / Time Cephalosporins Allergy Intermediate Rash Verified 12/21/24 23:24 codeine AdvReac Intermediate Nausea Verified 12/21/24 23:24 house dust AdvReac Intermediate Itching Verified 12/21/24 23:24 nortriptyline AdvReac Intermediate Other Verified 12/21/24 23:24 phenazopyridine (From AdvReac Intermediate Other Verified 12/21/24 23:24 Pyridium) doxycycline AdvReac Mild Nausea Verified 12/21/24 23:24 Surgical History Hx of vitrectomy Hx of partial mastectomy Social History household members: spouse Smoking Status: Never smoker ROS ROS ED Constitutional Constitutional ED: Denies chills or fever(s) Eyes Eyes: Denies blurry vision or change in vision ENT ENT ED: Denies rhinorrhea or sore throat Cardiovascular Cardiovascular: Denies chest pain or palpitations Respiratory/Chest Respiratory/Chest: Denies cough or dyspnea Gastrointestinal Gastrointestinal: Denies nausea or vomiting Genitourinary Genitourinary ED: Reports hematuria; Denies dysuria Musculoskeletal Musculoskeletal: Denies back pain or neck pain Integumentary Denies abscess or rash Neurologic Neurologic: Denies headache(s) or weakness Allergic/Immunologic Allergic/Immunologic ED: Denies mouth swelling or urticaria EXAM Physical Exam Const Vital Signs: 12/21/24 23:22 Temperature 98.1 F Temperature Source Oral Pulse Rate 85 Respiratory Rate 14 Blood Pressure 151/76 H Blood Pressure Mean 101 Pulse Ox 98 Oxygen Delivery Method Room Air Positive well nourished and well developed General Appearance ED: well developed and NAD HEENT Reports moist mucous membranes Neck supple and no JVD Resp normal respiratory effort and clear to auscultation bilaterally GI non-tender and non-distended Palpation: soft Back/Spine no CVA tenderness Extremity normal to inspection General Extremety ED: Negative for edema or tenderness General Extremity: Negative for edema Neuro oriented x3, CN's II-XII intact bilaterally and no sensory deficits noted Sensorium / Orientation: alert Motor Exam: strength 5/5 throughout Psych mental status grossly normal MDM MDM MDM Narrative Medical decision making narrative: Differential diagnosis includes hemorrhagic cystitis, ureteral calculus, bladder mass, renal mass, coagulopathy, and electrolyte abnormality. CBC will be obtained to assess for leukocytosis and anemia. Basic metabolic profile will be obtained to assess for renal function and electrolyte abnormality. Urinalysis will be obtained to assess for urinary tract infection and hematuria. CT scan of the abdomen and pelvis will be obtained to assess for ureteral calculus, bladder mass, and renal mass. PT with INR and PTT will be obtained to assess for coagulopathy. Lab Data Attestation: I reviewed the patient's lab results. Lab results narrative: CBC was reviewed and was within normal limits. Basic metabolic profile was reviewed and was within normal limits. PT with INR and PTT were reviewed and were within normal limits. Urinalysis was reviewed. Occult blood was 250 with greater than 100 red blood cells. Leukocyte esterase was 100. There are 0-5 white blood cells. Labs: Laboratory Results - las (more content not included)... Normal [facility] Eosinophil percentageOrdered By: Srinivasa Cruz on 12-21-2024 Eosinophils/100 WBC (Bld) 3.3 % 0-5 [facility] Epithelial cells.squamous LM Ql (Urine sed)Ordered By: Srinivasa Cruz on 12-21-2024 Epithelial cells.squamous LM.HPF (Urine sed) [#/Area] 0 /[HPF] 5-10 [facility] Erythrocyte distribution wid th ratioOrdered By: Srinivasa Cruz on 12-21-2024 Erythrocyte distribution width (RBC) [Ratio] 12.0 % 11.6-14.6 [facility] Erythrocyte distribution wid th standard deviationOrdered By: Srinivasa Cruz on 12-21-2024 Erythrocyte distribution width (RBC) [Entitic vol] 43.8 fL 35.1-43.9 [facility] Estimation of creatinine wang aranceOrdered By: Srinivasa Cruz on 12-21-2024 Estimated Creatinine Clearance Calc 58.46 ml/min 50-250 [facility] GFR/1.73 sq M.predicted tony g non-blacks MDRD (S/P/Bld) [Vol rate/Area]Ordered By: Srinivasa Cruz on 12-21-2024 Estimated GFR (MDRD) Non-Af Amer 78 >60 [facility] Comment on above: mL/min/1.73m2 CKD-EP I Creatinine Equation (2020) Glucose Ql (U)Ordered By: Estuardo Cruz on 12-21-2024 Urine Glucose (UA) Normal mg/dl Normal [facility] Hematocrit Auto (Bld) [Volum e fraction]Ordered By: Srinivasa Cruz on 12-21-2024 Hematocrit (Bld) [Volume fraction] 41.3 % 37-47 [facility] Hemoglobin measurementOrdere d By: Srinivasa Cruz on 12-21-2024 Hemoglobin (Bld) [Mass/Vol] 13.9 g/dL 12.0-15.0 [facility] Immature granulocytes/100 WB C Auto (Bld)Ordered By: Srinivasa Cruz on 12-21-2024 Immature granulocytes/100 WBC (Bld) 1.300 % High 0.0-0.9 [facility] Comment on above: IG% - Immature Granu locytes (promyelocytes, myelocytes and metamyelocytes) > 1% indicates that a LEFT SHIFT is Present. International normalized rat io (INR) calculationOrdered By: Srinivasa Cruz on 12-21-2024 INR Coag (Bld) [Relative time] 1.0 {INR} [facility] Ketones Test strip Ql (U)Ord ered By: Srinivasa Cruz on 12-21-2024 Ketones Ql (U) Negative Negative [facility] Lymphocytes Auto (Unsp spec) [#/Vol]Ordered By: Srinivasa Cruz on 12-21-2024 Lymphocytes (Bld) [#/Vol] 2.23 10*3/uL 0.83-4.51 [facility] Lymphocytes/100 WBC Auto (Un sp spec)Ordered By: Srinivasa Cruz on 12-21-2024 Lymphocytes/100 WBC (Bld) 36.6 % 19-41 [facility] MCV (mean corpuscular volume ) determinationOrdered By: Srinivasa Cruz on 12-21-2024 MCV (RBC) [Entitic vol] 100.0 fL High 81-99 [facility] Mean corpuscular hemoglobin (MCH) determinationOrdered By: Srinivasa Cruz on 12-21-2024 MCH (RBC) [Entitic mass] 33.7 pg High 27.0-32.0 [facility] Mean corpuscular hemoglobin concentration (MCHC) determinationOrdered By: Srinivasa Cruz on 12-21-2024 MCHC (RBC) [Mass/Vol] 33.7 g/dL 32-36 [facility] Mean platelet volume determi nationOrdered By: Srinivasa Cruz on 12-21-2024 Platelet mean volume (Bld) [Entitic vol] 11.2 fL 6.2-12.0 [facility] Microscopic analysis of urin e for red blood cells (RBC)Ordered By: Srinivasa Cruz on 12-21-2024 Urine RBC > 100 SEEN /hpf 0-5 [facility] Comment on above: Microscopic field is filled. Other elements may be obscured. Monocyte percentageOrdered B y: Srinivasa Cruz on 12-21-2024 Monocytes/100 WBC (Bld) 9.0 % 0-10 [facility] Mucus LM Ql (Urine sed)Order ed By: Srinivasa Cruz on 12-21-2024 Mucus Ql (Urine sed) 0 SEEN /hpf [facility] Neutrophil percentageOrdered By: Srinivasa Cruz on 12-21-2024 Neutrophils/100 WBC (Bld) 49.1 % 47-70 [facility] Nitrite Test strip Ql (U)Ord ered By: Srinivasa Cruz on 12-21-2024 Nitrite Ql (U) Negative Negative [facility] Nucleated red blood cell per centageOrdered By: Srinivasa Cruz on 12-21-2024 Nucleated RBC/100 WBC (Bld) [Ratio] 0 % 0-5 [facility] Platelet countOrdered By: Estuardo Cruz on 12-21-2024 Platelets (Bld) [#/Vol] 189 10*3/uL 150-450 [facility] Potassium (Unsp spec) [Mass/ Vol]Ordered By: Srinivasa Cruz on 12-21-2024 Potassium [Moles/Vol] 3.9 mmol/L 3.3-5.1 [facility] Protein Test strip Ql (U)Ord ered By: Srinivasa Cruz on 12-21-2024 Protein Ql (U) 100 mg/dl High Negative [facility] Prothrombin timeOrdered By: Srinivasa Cruz on 12-21-2024 PT Coag (PPP) [Time] 13.6 s 11.7-14.9 [facility] RBC Auto (Bld) [#/Vol]Ordere d By: Srinivasa Cruz on 12-21-2024 RBC (Bld) [#/Vol] 4.13 10*6/uL Low 4.2-5.4 [facility] Serum creatinine measurement (mass/volume)Ordered By: Srinivasa Cruz on 12-21-2024 Creatinine [Mass/Vol] 0.80 mg/dL 0.70-1.20 [facility] Serum glucose measurement (m ass/volume)Ordered By: Srinivasa Cruz on 12-21-2024 Glucose [Mass/Vol] 109 mg/dL High 70-99 [facility] Serum or plasma calcium christin urement (mass/volume)Ordered By: Srinivasa Cruz on 12-21-2024 Calcium [Mass/Vol] 9.9 mg/dL 7.6-11.0 [facility] Serum or plasma urea nitroge n measurement (mass/volume)Ordered By: Srinivasa Cruz on 12-21-2024 Urea nitrogen [Mass/Vol] 18 mg/dL 4-19 [facility] Sodium levelOrdered By: Srinivasa Cruz on 12-21-2024 Sodium [Moles/Vol] 142 mmol/L 133-145 [facility] Urine blood detectionOrdered By: Srinivasa Cruz on 12-21-2024 Urine Occult Blood 250 /ul High Negative [facility] Urine clarityOrdered By: Monique Cruz on 12-21-2024 Clarity (U) Turbid Clear [facility] Urine color determinationOrd ered By: Srinivasa Cruz on 12-21-2024 Color (U) Red Yellow [facility] Urine leukocyte esterase det ection by dipstickOrdered By: Srinivasa Cruz on 12-21-2024 Leukocyte esterase Test strip Ql (U) 100 /ul High Negative [facility] Urine pHOrdered By: Srinivasa roman on 12-21-2024 pH (U) 8.0 [pH] 5.0 - 8.0 [facility] Urine sediment bacteria coun t by microscopy (number/high power field)Ordered By: Srinivasa Cruz on 12-21-2024 Bacteria LM.HPF (Urine sed) [#/Area] 1 /[HPF] None Seen [facility] Urine specific gravity measu rementOrdered By: Srinivasa Cruz on 12-21-2024 Specific gravity (U) [Rel density] 1.015 1.002-1.030 [facility] Urobilinogen Ql (U)Ordered B y: Srinivasa Cruz on 12-21-2024 Urine Urobilinogen Normal mg/dl Normal [facility] White blood cell (WBC) count Ordered By: Srinivasa Cruz on 12-21-2024 WBC (Bld) [#/Vol] 6.1 10*3/uL 4.4-11.0 [facility] White blood cell countOrdere d By: Srinivasa Anthony on 12-21-2024 Urine WBC 0-5 SEEN /hpf 0-5 [facility] aPTT Coag (PPP) [Time]Ordere d By: Srinivasa Anthony on 12-21-2024 aPTT Coag (Bld) [Time] 31.5 s 24.1-36.2 [facility] CNOVon 10-09-2024 CNOV Office Visit (OBGYWM ) ----- HOMAANDRE Mojica ([id number]) 1950 F Date Time Provider Department 10/09/24 9:00 AM VIBHA ROSA OBJUANITA During your visit today, we recorded the following information about you: Blood pressure Weight Height 132/90 64 kg 1.537 m Vibha Rosa MD 10/09/2024 9:14 AM Signed Activity Leader offered: Patient declines. Andre is a 74 year old who presents for an annual gynecologic exam without complaints. Postmenopausal: Yes HRT use: No. Still get period: No Menopause symptoms: Hot flashes; Vaginal dryness control frequency: Never HPV vaccine: Unsure; Last pap smear: 2017 History of abnormal pap: No, all prior PAP smears have been normal Leep: No. Cone biopsy: No. 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 History Comments: Sexual Activity: Not Asked; Male; Not asked Contraception: No contraception data on record PAST MEDICAL HISTORY Diagnosis Date Asthma Breast cancer (HCC) right s/p lumpectomy 08/2017, and radiation Macular cyst, hole, or pseudohole of retina Both eyes Osteopenia after menopause PVC (premature ventricular contraction) Shingles PAST SURGICAL HISTORY Procedure Laterality Date BREAST BIOPSY INCISIONAL RIGHT Right 07/2018 BREAST LUMPECTOMY HX Right 09/15/2018 Right NL PM/SNBx: [id number], ER/AR+, HER2 Neg, Grade 1, IDC w/tubular features; 1/2nodes COLONOSCOPY 07/2007, 01/14 nevus 1980 face. POST-CATARACT LASER SURGERY 06/26/2012 Yag Capsulotomy OS VITRECTOMY FOR MACULAR HOLE Left 06/06/2011 L eye. VITRECTOMY MECHANICAL PARS PLANA Right 02/20/2012 [place] Vitrectomy ,MP, PCIOL OD FAMILY HISTORY Problem Relation Age of Onset Cataract Mother other (osteopenia) Mother Osteopenia Stroke Mother Heart Father SC Lipids Father High Cholesterol other (Macular Degeneration) Maternal Grandfather Heart Attack Paternal Grandmother Heart Attack Paternal Grandfather Blood Clots Daughter Coronary Artery Disease Paternal Aunt Coronary Artery Disease Paternal Uncle SOCIAL HISTORY Social History Tobacco Use Smoking status: Never Smokeless tobacco: Never Vaping Use Vaping status: Never Used Substance Use Topics Alcohol use: No Drug use: No REVIEW OF SYSTEMS Abdomen: No abdominal pain, nausea, vomiting, diarrhea, or constipation. No bloating, early satiety, indigestion, or increased flatulence. Bladder: No dysuria, gross hematuria, urinary frequency, urinary urgency, or incontinence Breast: No breast lumps, nipple d/c, overlying skin changes, redness or skin retraction Allergies and current medication updated:Yes SENSITIVE EXAM: The sensitive examination was discussed with the Patient or Patient's Authorized Factory Clerk. As applicable, any other physician, advance practice provider, medical student, or other health professional student that will be observing or involved in the sensitive examination for educational or training purposes was discussed with the Patient or Authorized Factory Clerk. The Patient or Authorized Factory Clerk has agreed to proceed with the sensitive examination. (Sensitive examination includes inspection and/or palpation of the breasts, pelvis, prostate and anorectal regions). EXAM: There were no vitals taken for this visit. GENERAL: pleasant, female in no apparent distress HEENT: Normocephalic and atraumatic NECK: full range of motion BREAST: soft, non-tender, symmetric, no dominant mass, normal nipple-areolar complex, no lymphadenopathy, and no nipple discharge, prior lumpectomy scar noted CHEST: Normal inspiratory effort ABDOMEN: soft, non-tender, and no masses PELVIC: external genitalia normal, normal Bartholin's glands, urethra, Hustisford's glands, no vulvar lesions, no cervical lesions, good vaginal support, physiologic discharge present, normal appearing perineal body and perianal region, rectocele 2nd degree BIMANUAL: uterus normal size, shape and consistency, no adnexal masses, and non-tender RECTOVAGINAL: deferred. NEURO: exam grossly non-focal EXTREMITIES: normal ASSESSMENT/PLAN: 1) Health maintenance: Pap/HPV screening no longer needed Mammogram up to date Nutrition, exercise and routine health maintenance exams reviewed. TSH/lipids/glucose: followed by PCP BMD: followed by PCP 2) Follow up one year or sooner as needed Vibha Rosa DO Referring Provider: SELF [200] Allergies As of Date: 10/09/2024 Noted Allergy Reaction CEPHALOSPORINS 01/19/2008 2 - Rash CODEINE 01/10/2007 8 - GI Upset DUST 12/29 (more content not included)... Normal [facility] CNTHERAPYon 09-16-2024 CNTHERAPY OT/PT/Speech Visit ( PTWS) ----- ANDRE LUTHER ([id number]) 1950 F Date Time Provider Department 09/16/24 8:45 AM FARZANA HIDALGO PTWS Date Time Provider Department Center 09/16/2024 8:45 AM [id number] HIDALGO PTWS Say Rodriguez Reason for Visit: PT Progress Note [1596] PT Discharge [752] Primary Visit Diagnosis:Encounter for follow-up surveillance of breast cancer [Z08, Z85.3] Allergies As of Date: 09/16/2024 Noted Allergy Reaction CEPHALOSPORINS 01/19/2008 2 - Rash CODEINE 01/10/2007 8 - GI Upset DUST 01/13/2007 9 - Itching NORTRIPTYLINE 10/24/2020 5 - Intolerance Comments: Elevated blood pressure and pulse. RAGWEED 01/13/2007 DOXYCYCLINE HYCLATE 04/01/2018 5 - Intolerance Comments: Reflux PYRIDIUM (PHENAZOPYRIDINE) 09/03/2019 14 - Other: See Comments Comments: dizziness Date Reviewed: 07/16/2024 Reviewed by: Radha Her APRN.PLASTERING SUPERVISOR - Fully Assessed Prescriptions as of 09/16/2024 - gabapentin (NEURONTIN) 300 mg capsule Take 1 capsule by mouth daily at bedtime for 180 days. - albuterol HFA (VENTOLIN HFA) 90 mcg/actuation inhaler Inhale 2 Puffs as instructed every 4 hours as needed. - gabapentin (NEURONTIN) 100 mg capsule Two capsules (200mg) by mouth every morning. - rosuvastatin (CRESTOR) 10 mg tablet Take 1 tablet by mouth daily at bedtime. - etodolac (LODINE) 400 mg tablet Take 1 tablet by mouth every other day. - Cholecalciferol, Vitamin D3, 125 mcg (5,000 unit) cap Take 1 capsule by mouth once daily. - ipratropium bromide (ATROVENT) 42 mcg (0.06 %) nasal spray Use 2 Sprays in the nose four times daily. prn - carboxymethylcellulose sodium (REFRESH OPHTHALMIC) Use 1 Drop in eyes as needed. - propylene glycol (SYSTANE COMPLETE OPHTHALMIC) Use 1 Drop in eyes as needed. - Azelastine HCl (OPTIVAR) 0.05 % ophthalmic solution Use 1 Drop in both eyes twice daily as needed (allergies). - famotidine (PEPCID ORAL) Take 1 tablet by mouth twice daily. - psyllium husk (METAMUCIL ORAL) Take 1 teaspoonful by mouth two times a day. - calcium carbonate (CALCIUM 600 ORAL) Take 600 mg by mouth once daily. - vit A,C,M-Jckq-Ubkkts (PRESERVISION AREDS) 7,160-113-100 ozzw-vx-xyxm tab Take 1 tablet by mouth twice daily. - Pgzv-Jhwo-COV#1-C-Morris-Sukhi s-Bor (OSTEO BI-FLEX) 750-625-30 mg Tab Take 1 tablet by mouth twice daily. Meds Comments as of 04/01/2018: Preservision bid Employee Counselor: Addendum Therapy (PT/OT/Speech/Resp) ID: [id number] 09/16/2024 9:17 AM Author: FARZANA HIDALGO Signed by FARZANA HIDALGO PT on 09/16/2024 at 9:17 AM * * * This document replaces document [id number] * * * Document text: Program_ID:[id number] Access Code: [email or web address] URL: [email or web address]/ Date: 09-16-2024 Prepared By: Farzana Hidalgo Program Notes Exercises - Supine Chest Stretch with Elbows Bent - 1 x daily - 7 x weekly - sets - 3 reps - Supine Shoulder External Rotation in Abduction - 1 x daily - 7 x weekly - sets - 10 reps - Seated Scapular Retraction - 1 x daily - 7 x weekly - 1 sets - 10 reps - Wall Push Up - 1 x daily - 7 x weekly - 1-2 sets - 10 reps - Seated Shoulder Shrug Circles AROM Backward - 1 x daily - 7 x weekly - 1-2 sets - 10 reps Normal [facility] THERAPY NTon 09-16-2024 THERAPY NT HNO ID: [id number] Author: FARZANA HIDALGO, PT Service: ? Author Type: Physical Therapist Type: Therapy (PT/OT/Speech/Resp) Filed: 09/16/2024 09:17 Note Text: Program_ID:[id number] Access Code: [email or web address] URL: [email or web address] Date: 09-16-2024 Prepared By: Farzana Hidalgo Program Notes Exercises - Supine Chest Stretch with Elbows Bent - 1 x daily - 7 x weekly - sets - 3 reps - Supine Shoulder External Rotation in Abduction - 1 x daily - 7 x weekly - sets - 10 reps - Seated Scapular Retraction - 1 x daily - 7 x weekly - 1 sets - 10 reps - Wall Push Up - 1 x daily - 7 x weekly - 1-2 sets - 10 reps - Seated Shoulder Shrug Circles AROM Backward - 1 x daily - 7 x weekly - 1-2 sets - 10 reps Normal [facility] CNPNon 08-20-2024 DEAN Telephone (ROBE) ----- ANDRE LUTHER ([id number]) 1950 F Date Time Provider Department 08/20/24 RADHA HER During your visit today, we recorded the following information about you: Radha eHr APRN.CNP 08/20/2024 12:14 PM Signed Please inform pt. that her mammogram looks good. OV in 6 months. PAYTON Alves Melissa 08/20/2024 12:44 PM Signed Patient informed and scheduled Allergies As of Date: 08/20/2024 Noted Allergy Reaction CEPHALOSPORINS 01/19/2008 2 - Rash CODEINE 01/10/2007 8 - GI Upset DUST 01/13/2007 9 - Itching NORTRIPTYLINE 10/24/2020 5 - Intolerance Comments: Elevated blood pressure and pulse. RAGWEED 01/13/2007 DOXYCYCLINE HYCLATE 04/01/2018 5 - Intolerance Comments: Reflux PYRIDIUM (PHENAZOPYRIDINE) 09/03/2019 14 - Other: See Comments Comments: dizziness Date Reviewed: 07/16/2024 Reviewed by: Radha Her APRN.CNP - Fully Assessed Prescriptions as of 08/20/2024 - gabapentin (NEURONTIN) 300 mg capsule Take 1 capsule by mouth daily at bedtime for 180 days. - albuterol HFA (VENTOLIN HFA) 90 mcg/actuation inhaler Inhale 2 Puffs as instructed every 4 hours as needed. - gabapentin (NEURONTIN) 100 mg capsule Two capsules (200mg) by mouth every morning. - rosuvastatin (CRESTOR) 10 mg tablet Take 1 tablet by mouth daily at bedtime. - etodolac (LODINE) 400 mg tablet Take 1 tablet by mouth every other day. - Cholecalciferol, Vitamin D3, 125 mcg (5,000 unit) cap Take 1 capsule by mouth once daily. - ipratropium bromide (ATROVENT) 42 mcg (0.06 %) nasal spray Use 2 Sprays in the nose four times daily. prn - carboxymethylcellulose sodium (REFRESH OPHTHALMIC) Use 1 Drop in eyes as needed. - propylene glycol (SYSTANE COMPLETE OPHTHALMIC) Use 1 Drop in eyes as needed. - Azelastine HCl (OPTIVAR) 0.05 % ophthalmic solution Use 1 Drop in both eyes twice daily as needed (allergies). - famotidine (PEPCID ORAL) Take 1 tablet by mouth twice daily. - psyllium husk (METAMUCIL ORAL) Take 1 teaspoonful by mouth two times a day. - calcium carbonate (CALCIUM 600 ORAL) Take 600 mg by mouth once daily. - vit A,C,L-Bqvg-Fzgzrz (PRESERVISION AREDS) 7,160-113-100 qfnq-xr-nvci tab Take 1 tablet by mouth twice daily. - Dcnj-Zeky-LVW#1-C-Morris-Sukhi s-Bor (OSTEO BI-FLEX) 750-625-30 mg Tab Take 1 tablet by mouth twice daily. Meds Comments as of 04/01/2018: Preservision bid Problem List As Of Date 08/20/2024 Noted Resolved Solar Lentigines [L81.4] 08/07/2011 06/22/2014 Seborrheic Keratosis [L82.1] 08/07/2011 06/22/2014 Nobles Angiomas [D18.01] 08/07/2011 06/22/2014 Cutaneous skin tags [L91.8] 08/07/2011 06/22/2014 Bilateral pseudophakia [Z96.1] 04/01/2012 09/20/2017 Pain in joint, lower leg [M25.569] 05/06/2012 09/20/2017 PCO (posterior capsular opacification), left [H*06/26/2012 09/20/2017 After-cataract, obscuring vision [H26.499] 04/20/2014 09/20/2017 Postmenopausal atrophic vaginitis [N95.2] 06/22/2014 09/08/2019 Primary osteoarthritis of left knee [M17.12] 08/09/2015 Mild intermittent asthma without complication [*08/09/2015 Anal or rectal pain [K62.89] 02/08/2017 09/20/2017 Osteopenia [M85.80] 07/28/2018 Malignant neoplasm of upper-outer quadrant of r*09/05/2018 GERD without esophagitis [K21.9] 06/11/2019 Elevated blood pressure reading without diagnos*08/18/2019 PVC (premature ventricular contraction) [I49.3] 09/03/2019 Abnormal stress test [R94.39] 09/03/2019 Allergy [T78.40XA] 04/26/2021 Rectocele [N81.6] 03/22/2023 Cystocele, midline [N81.11] 03/22/2023 Muscle weakness [M62.81] 03/22/2023 12/23/2023 Encounter for follow-up surveillance of breast *08/17/2024 Personal history of malignant neoplasm of breas*08/17/2024 Encounter Status:Closed by VIKTORIA CLARKE on 08/20/24 Normal [facility] SCREENINGon 08-20-2024 [facility] SCREENING * * *Final Report* * * DATE OF EXAM: Aug 20 2024 9:48AM [facility] 0581 - [facility] SCREENING / PROCEDURE REASON: multiple diagnoses * * * * Physician Interpretation * * * * RESULT: [place] [id number] #[id number] - [facility] SCREENING HISTORY: Patient is 74 years old and is seen for screening and is asymptomatic in both breasts. The patient has a history of breast cancer at age 68. COMPARISON STUDIES: The present examination has been compared to prior imaging studies dated 07/31/2019 (mammogram), 08/04/2020 (mammogram), 08/08/2021 (mammogram), 08/16/2022 (mammogram) and 08/19/2023 (mammogram). MAMMOGRAM TECHNIQUE: The study was acquired using full field digital technology and interpreted from soft copy. Computer-aided detection was utilized by the radiologist in the interpretation of this examination. MAMMOGRAM FINDINGS: There are scattered areas of fibroglandular density. There are post-operative changes in the right breast. There are no significant changes from the prior study. No suspicious masses, calcifications or other abnormalities are seen in either breast. IMPRESSION: There is no mammographic evidence of malignancy. Routine screening mammogram is recommended. Annual mammogram will be due in 1 year. BI-RADS Category 2: Benign Interpreting Radiologist: Kanwal Skelton M.D. Electronically signed on: 08/20/2024 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: JESSICA Transcribe Date/Time: Aug 20 2024 9:24A Dictated by: KANWAL SKELTON MD This examination was interpreted and the report reviewed and electronically signed by: KANWAL SKELTON MD on Aug 20 2024 12:05PM EST [id number] Normal [facility] Breast Screeningon 2023 IMPRESSION: There is no mammographic evidence of malignancy. Routine screening mammogram is recommended. Annual mammogram will be due in 1 year. BI-RADS Category 2: Benign Interpreting Radiologist: Kanwal Skelton M.D. Electronically signed on: 08/20/2024 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: JESSICA Transcrirajeev Date/Time: Aug 20 2024 9:24A Dictated by: KANWAL SKELTON MD This examination was interpreted and the report reviewed and electronically signed by: KANWAL SKELTON MD on Aug 20 2024 12:05PM EST DIVISION OF RADIOLOGY * * *Final Report* * * DATE OF EXAM: Aug 20 2024 9:48AM [facility] 0581 - [facility] SCREENING / PROCEDURE REASON: multiple diagnoses * * * * Physician Interpretation * * * * RESULT: [place] [address] [place] [address] #[id number] - [facility] SCREENING HISTORY: Patient is 74 years old and is seen for screening and is asymptomatic in both breasts. The patient has a history of breast cancer at age 68. COMPARISON STUDIES: The present examination has been compared to prior imaging studies dated 07/31/2019 (mammogram), 08/04/2020 (mammogram), 08/08/2021 (mammogram), 08/16/2022 (mammogram) and 08/19/2023 (mammogram). MAMMOGRAM TECHNIQUE: The study was acquired using full field digital technology and interpreted from soft copy. Computer-aided detection was utilized by the radiologist in the interpretation of this examination. MAMMOGRAM FINDINGS: There are scattered areas of fibroglandular density. There are post-operative changes in the right breast. There are no significant changes from the prior study. No suspicious masses, calcifications or other abnormalities are seen in either breast. DIVISION OF RADIOLOGY Provider, [facility] - 08/20/2024 * * *Final Report* * * DATE OF EXAM: Aug 20 2024 9:48AM [facility] 0581 - [facility] SCREENING / PROCEDURE REASON: multiple diagnoses * * * * Physician Interpretation * * * * RESULT: [place] [address] #[id number] - [facility] SCREENING HISTORY: Patient is 74 years old and is seen for screening and is asymptomatic in both breasts. The patient has a history of breast cancer at age 68. COMPARISON STUDIES: The present examination has been compared to prior imaging studies dated 07/31/2019 (mammogram), 08/04/2020 (mammogram), 08/08/2021 (mammogram), 08/16/2022 (mammogram) and 08/19/2023 (mammogram). MAMMOGRAM TECHNIQUE: The study was acquired using full field digital technology and interpreted from soft copy. Computer-aided detection was utilized by the radiologist in the interpretation of this examination. MAMMOGRAM FINDINGS: There are scattered areas of fibroglandular density. There are post-operative changes in the right breast. There are no significant changes from the prior study. No suspicious masses, calcifications or other abnormalities are seen in either breast. IMPRESSION IMPRESSION: There is no mammographic evidence of malignancy. Routine screening mammogram is recommended. Annual mammogram will be due in 1 year. BI-RADS Category 2: Benign Interpreting Radiologist: Kanwal Skelton M.D. Electronically signed on: 08/20/2024 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: JESSICA Transcribe Date/Time: Aug 20 2024 9:24A Dictated by: KANWAL SKELTON MD This examination was interpreted and the report reviewed and electronically signed by: KANWAL SKELTON MD on Aug 20 2024 12:05PM EST [facility] Radiology Study observation (narrative) [facility] MG Breast ScreeningOrdered B y: [facility] Provider on 08-20-2024 [facility] [id number] 08-17-2024 [id number] HNO ID: [id number] Author: FARZANA HIDALGO PT Service: ? Author Type: Physical Therapist Type: [id number] Filed: 08/17/2024 21:02 Note Text: [facility] Rehabilitation and Sports Therapy Physical Therapy Plan of Care Certification Patient Name: Andre Luther : 1950 [facility] #: [id number] Date: 08/17/2024 To: Radha Her APRN.* From Therapist: Farzana Hidalgo PT RE: Patient Certification/ Recertification Your review, approval and electronic signature are required in order to comply with Payor: MEDICARE / Plan: MEDICARE A AND B / Product Type: Medicare / regulations. The identified Physical Therapy PLAN OF CARE for the patient is as follows: Z08, Z85.3 Encounter for follow-up surveillance of breast cancer (primary encounter diagnosis) Z85.3 Personal history of malignant neoplasm of breast PLAN OF CARE: Assessment: Andre Luther presents with chief complaint of pain R posterior shld, lateral chest wall, latissimus region that interferes with nothing, cleaning (Able to do all activities, just gets pain the next day if does too much. Vaccuuming (uses L arm to do). Opening jars (bothers/pain) in upper arm during and - may feel it next day.) . The patient presents with impairments in overall function, strength, symptom management, and soft tissue restrictions. PROMIS? (Patient-Reported Outcomes Measurement Information System) scores were reviewed and identified as a rehabilitation concern. Prognosis for therapy is Good due to: current objective clinical presentation, good overall health status, good support system/ coping skills, Prognosis may be limited due to chronic nature of impairments . The patient will benefit from skilled therapy services to meet the goals established for this plan of care as noted below. Goals for Episode of Care: established 08/17/24 Pt will demonstrate reduction of soft tissue restrictions. [place] in home exercise program. Patient will decrease pain rating by 2 points to meet minimal clinical important difference for numeric pain rating scale. Patient will demonstrate increase in R UE strength to 4+ to 5/5 during manual muscle testing in order to improve function for home management tasks, leisure / recreation skills, and prior functional tasks. Perform opening jars, vacuuming, and household cleaning with decreased report of symptoms/pain in 4-8 weeks. Improve postural awareness. Patient Goals: Any exercises that would help any of the pain the I get. Time Frame for Goals and Treatment : 10/17/24 Planned Interventions, Frequency, and Duration: Current Frequency: 1 visit Duration: 3 weeks Total Number of Visits Planned: 1 Planned Treatment Interventions: Therapeutic exercise (91542), Neuromuscular re-education (56733), Manual therapy (70242), Self-prison management (29400), Patient/Family/Caregiver Education PLAN FOR NEXT VISIT: Assess performance of and response to HEP. Progress scapular stabilization exercises. May add MFR or soft tissue techniques as needed. Patient demonstrates good understanding of plan of care and treatment. The above goals and plan of care were discussed and agreed upon by patient/family. For further details regarding this patient refer to the Physical Therapy electronically documented visit dated 08/17/2024. Provider Attestation I have reviewed the treatment plan for Andre Annemarie Luther, [facility]# [id number] for the period of 08/17/24 -- 10/17/24, established on 08/17/2024. Signature certifies the need for therapy services. Normal [facility] CNTHERAPYon 08-17-2024 CNTHERAPY OT/PT/Speech Visit ( PTWS) ----- ANDRE LUTHER ([id number]) 1950 F Date Time Provider Department 08/17/24 1:00 PM FARZANA HIDALGO PTWS Date Time Provider Department Center 08/17/2024 1:00 PM [id number] HIDALGO PTWS [place] Reason for Visit: PT Eval [747] Primary Visit Diagnosis:Encounter for follow-up surveillance of breast cancer [Z08, Z85.3] Other Visit Diagnosis:Personal history of malignant neoplasm of breast [Z85.3] Allergies As of Date: 08/17/2024 Noted Allergy Reaction CEPHALOSPORINS 01/19/2008 2 - Rash CODEINE 01/10/2007 8 - GI Upset DUST 01/13/2007 9 - Itching NORTRIPTYLINE 10/24/2020 5 - Intolerance Comments: Elevated blood pressure and pulse. RAGWEED 01/13/2007 DOXYCYCLINE HYCLATE 04/01/2018 5 - Intolerance Comments: Reflux PYRIDIUM (PHENAZOPYRIDINE) 09/03/2019 14 - Other: See Comments Comments: dizziness Date Reviewed: 07/16/2024 Reviewed by: Radha Her APRN.PLASTERING SUPERVISOR - Fully Assessed Prescriptions as of 08/17/2024 - gabapentin (NEURONTIN) 300 mg capsule Take 1 capsule by mouth daily at bedtime for 180 days. - albuterol HFA (VENTOLIN HFA) 90 mcg/actuation inhaler Inhale 2 Puffs as instructed every 4 hours as needed. - gabapentin (NEURONTIN) 100 mg capsule Two capsules (200mg) by mouth every morning. - rosuvastatin (CRESTOR) 10 mg tablet Take 1 tablet by mouth daily at bedtime. - etodolac (LODINE) 400 mg tablet Take 1 tablet by mouth every other day. - Cholecalciferol, Vitamin D3, 125 mcg (5,000 unit) cap Take 1 capsule by mouth once daily. - ipratropium bromide (ATROVENT) 42 mcg (0.06 %) nasal spray Use 2 Sprays in the nose four times daily. prn - carboxymethylcellulose sodium (REFRESH OPHTHALMIC) Use 1 Drop in eyes as needed. - propylene glycol (SYSTANE COMPLETE OPHTHALMIC) Use 1 Drop in eyes as needed. - Azelastine HCl (OPTIVAR) 0.05 % ophthalmic solution Use 1 Drop in both eyes twice daily as needed (allergies). - famotidine (PEPCID ORAL) Take 1 tablet by mouth twice daily. - psyllium husk (METAMUCIL ORAL) Take 1 teaspoonful by mouth two times a day. - calcium carbonate (CALCIUM 600 ORAL) Take 600 mg by mouth once daily. - vit A,C,O-Atht-Pbgsuv (PRESERVISION AREDS) 7,160-113-100 czez-ra-afmi tab Take 1 tablet by mouth twice daily. - Bffj-Lciw-CPX#1-C-Morris-Sukhi s-Bor (OSTEO BI-FLEX) 750-625-30 mg Tab Take 1 tablet by mouth twice daily. Meds Comments as of 04/01/2018: Preservision bid Employee Counselor: Addendum Therapy (PT/OT/Speech/Resp) ID: [id number] 08/17/2024 2:05 PM Author: FARZANA HIDALGO Signed by FARZANA HIDALGO PT on 08/17/2024 at 2:05 PM * * * This document replaces document [id number] * * * Document text: Program_ID:[id number] Access Code: [email or web address] URL: [email or web address] Date: 08-17-2024 Prepared By: Farzana Hidalgo Program Notes Exercises - Supine Chest Stretch with Elbows Bent - 1 x daily - 7 x weekly - sets - 3 reps - Supine Shoulder External Rotation in Abduction - 1 x daily - 7 x weekly - sets - 10 reps - Seated Scapular Retraction - 1 x daily - 7 x weekly - 1 sets - 10 reps Letter Text Normal [facility] NTon 08-17-2024 THERAPY NT HNO ID: [id number] Author: FARZANA HIDALGO, PT Service: ? Author Type: Physical Therapist Type: Therapy (PT/OT/Speech/Resp) Filed: 08/17/2024 14:05 Note Text: Program_ID:[id number] Access Code: [email or web address] URL: [email or web address] Date: 08-17-2024 Prepared By: Farzana Hidalgo Program Notes Exercises - Supine Chest Stretch with Elbows Bent - 1 x daily - 7 x weekly - sets - 3 reps - Supine Shoulder External Rotation in Abduction - 1 x daily - 7 x weekly - sets - 10 reps - Seated Scapular Retraction - 1 x daily - 7 x weekly - 1 sets - 10 reps Normal [facility] 12 Lead EKGon 06-10-2024 12 Lead EKG [facility] [address] [place] [address] 12 Lead EKG 06/10/24 0933 MR#: [id number] Acct: [id number] Name: ANDRE LUTHER Rep #: [id number] : 1950 74 From: Mandeep Da Silva MD Attending Dr: Status: DEP ER Ordering Dr: Jose Johnson MD Date: 06/10/24 Location: ED Sex: F C Admitted: Test Reason : BACK PAIN Blood Pressure : / mmHG Vent. Rate : 075 BPM Atrial Rate : 075 BPM P-R Int : 124 ms QRS Dur : 094 ms QT Int : 400 ms P-R-T Axes : 050 027 006 degrees QTc Int : 446 ms Normal sinus rhythm Possible Inferior infarct , age undetermined Abnormal ECG Confirmed by MANDEEP DA SILVA MD ([id number]), film or videotape editor ALIREZA ABRAHAM ([id number]) on 06/12/2024 7:56:23 AM Referred By: Confirmed By:MANDEEP DA SILVA MD 06/12/24 0756 Date Mandeep Da Silva MD CC: Dr. Jose Johnson MD; Dr. Abhishek Huynh MD Signed Normal [facility] CBC W/Diff, Automatedon 09-09 30-2023 Absolute Lymph 1.09 X10 3/uL Normal 0.83-4.51 [facility] Comment on above: Performed By: #### L 501.2450, L100.0100, L500.4050 ####[facility] [address] [place], [address] Absolute Neut 2.8 X10 3/uL Normal 2.0-7.7 [facility] Comment on above: Performed By: #### L 501.2450, L100.0100, L500.4050 ####[facility] [address] [place], [address] Basophils/100 WBC (Bld) 0.5 % Normal 0-1 [facility] Comment on above: Performed By: #### L 501.2450, L100.0100, L500.4050 ####[facility] [address] [place], [address] Eosinophils/100 WBC (Bld) 3.1 % Normal 0-5 [facility] Comment on above: Performed By: #### L 501.2450, L100.0100, L500.4050 ####[facility] [address] [place], [address] Erythrocyte distribution width (RBC) [Ratio] 11.6 % Normal 11.6-14.6 [facility] Comment on above: Performed By: #### L 501.2450, L100.0100, L500.4050 ####[facility] [address] [place], [address] Hematocrit (Bld) [Volume fraction] 44.6 % Normal 37-47 [facility] Comment on above: Performed By: #### L 501.2450, L100.0100, L500.4050 ####[facility] [address] [place], [address] Hemoglobin (Bld) [Mass/Vol] 15.0 g/dL Normal 12.0-15.0 [facility] Comment on above: Performed By: #### L 501.2450, L100.0100, L500.4050 ####[facility] [address] [place], [address] IG% 0.200 Normal 0.0-0.9 [facility] Comment on above: Result Comment: IG% - Immature Granulocytes (promyelocytes, myelocytes and metamyelocytes) > 1% indicates that a LEFT SHIFT is Present. Performed By: #### L 501.2450, L100.0100, L500.4050 ####[facility] [address] [place], [address] Lymphocytes/100 WBC (Bld) 25.7 % Normal 19-41 [facility] Comment on above: Performed By: #### L 501.2450, L100.0100, L500.4050 ####[facility] [address] [place], [address] MCH (RBC) [Entitic mass] 33.6 pg High 27.0-32.0 [facility] Comment on above: Performed By: #### L 501.2450, L100.0100, L500.4050 ####[facility] [address] [place], [address] MCHC (RBC) [Mass/Vol] 33.6 g/dL Normal 32-36 [facility] Comment on above: Performed By: #### L 501.2450, L100.0100, L500.4050 ####[facility] [address] [place], [address] MCV (RBC) [Entitic vol] 99.8 fL High 81-99 [facility] Comment on above: Performed By: #### L 501.2450, L100.0100, L500.4050 ####[facility] [address] [place], [address] Monocytes/100 WBC (Bld) 5.7 % Normal 0-10 [facility] Comment on above: Performed By: #### L 501.2450, L100.0100, L500.4050 ####[facility] [address] [place], [address] Neutrophils/100 WBC (Bld) 64.8 % Normal 47-70 [facility] Comment on above: Performed By: #### L 501.2450, L100.0100, L500.4050 ####[facility] [address] [place], [address] Nucleated RBC (Bld) [#/Vol] 0 10*3/uL Normal 0-5 [facility] Comment on above: Performed By: #### L 501.2450, L100.0100, L500.4050 ####[facility] [address] [place], [address] Platelet mean volume (Bld) [Entitic vol] 10.5 fL Normal 6.2-12.0 [facility] Comment on above: Performed By: #### L 501.2450, L100.0100, L500.4050 ####[facility] [address] [place], [address] Platelets (Bld) [#/Vol] 169 10*3/uL Normal 150-450 [facility] Comment on above: Performed By: #### L 501.2450, L100.0100, L500.4050 ####[facility] [address] [place], [address] RBC (Bld) [#/Vol] 4.47 10*6/uL Normal 4.2-5.4 [facility] Comment on above: Performed By: #### L 501.2450, L100.0100, L500.4050 ####[facility] [address] [place], [address] RDW SD 42.6 fl Normal 35.1-43.9 [facility] Comment on above: Performed By: #### L 501.2450, L100.0100, L500.4050 ####[facility] [address] [place], [address] WBC (Bld) [#/Vol] 4.2 10*3/uL Low 4.4-11.0 [facility] Comment on above: Performed By: #### L 501.2450, L100.0100, L500.4050 ####[facility] [address] [place], [address] Comprehensive Metabolic Prof [facility] 06-10-2024 Albumin [Mass/Vol] 3.9 g/dL Normal 3.2-5.0 [facility] Comment on above: Performed By: #### L 501.2450, L100.0100, L500.4050 ####[facility] [address] [place], [address] Albumin/Globulin [Mass ratio] 1.1 {ratio} Normal 0.9-2.4 [facility] Comment on above: Performed By: #### L 501.2450, L100.0100, L500.4050 ####[facility] [address] [place], [address] ALK P 88 U/L Normal 45-117 [facility] Comment on above: Performed By: #### L 501.2450, L100.0100, L500.4050 ####[facility] [address] [place], [address] ALT [Catalytic activity/Vol] 27 U/L Normal 13-56 [facility] Comment on above: Performed By: #### L 501.2450, L100.0100, L500.4050 ####[facility] [address] [place], [address] AST [Catalytic activity/Vol] 19 U/L Normal 15-37 [facility] Comment on above: Performed By: #### L 501.2450, L100.0100, L500.4050 ####[facility] [address] [place], [address] Bilirubin [Mass/Vol] 0.90 mg/dL Normal 0.20-1.00 [facility] Comment on above: Result Comment: For patients on eltrombopag therapy, use of Dimension Hunt TBIL is not recommended. Performed By: #### L 501.2450, L100.0100, L500.4050 ####[facility] [address] [place], [address] BUN/CRE 14.8 RATIO Normal 10-20 [facility] Comment on above: Performed By: #### L 501.2450, L100.0100, L500.4050 ####[facility] [address] [place], [address] CA,Total 9.7 mg/dL Normal 8.5-10.1 [facility] Comment on above: Performed By: #### L 501.2450, L100.0100, L500.4050 ####[facility] [address] [place], [address] Chloride [Moles/Vol] 105 mmol/L Normal 98-107 [facility] Comment on above: Performed By: #### L 501.2450, L100.0100, L500.4050 ####[facility] [address] [place], [address] CO2 [Moles/Vol] 28.0 mmol/L Normal 21.0-32.0 [facility] Comment on above: Performed By: #### L 501.2450, L100.0100, L500.4050 ####[facility] [address] [place], [address] Creatinine [Mass/Vol] 0.88 mg/dL Normal 0.55-1.02 [facility] Comment on above: Result Comment: The validity of the calculated GFR GFRAA in patients over 70 years has not been determined. Clinical correlation is essential. Performed By: #### L 501.2450, L100.0100, L500.4050 ####[facility] [address] [place], [address] ECRCL 52.95 ml/min Normal [facility] Comment on above: Performed By: #### L 501.2450, L100.0100, L500.4050 ####[facility] [address] [place], [address] EST GFR - AA 81 mL/min Normal >60 [facility] Comment on above: Result Comment: Afri can Puerto [place]ican GFR Calc Performed By: #### L 501.2450, L100.0100, L500.4050 ####[facility] [address] [place], [address] GAP 5 Normal 5-15 [facility] Comment on above: Performed By: #### L 501.2450, L100.0100, L500.4050 ####[facility] [address] [place], [address] GFR/1.73 sq M.predicted among non-blacks MDRD (S/P/Bld) [Vol rate/Area] 67 mL/min/{1.73_m2} Normal >60 [facility] Comment on above: Result Comment: Non- GFR Calc Performed By: #### L 501.2450, L100.0100, L500.4050 ####[facility] [address] [place], [address] Globulin (S) [Mass/Vol] 3.4 g/dL Normal 2.2-4.2 [facility] Comment on above: Performed By: #### L 501.2450, L100.0100, L500.4050 ####[facility] [address] [place], [address] Glucose [Mass/Vol] 113 mg/dL High 74-106 [facility] Comment on above: Result Comment: Fast ing Glucose result from 100 to 125 mg/dL suggests IMPAIRED HOMEOSTASIS per A.D.A. criteria. Performed By: #### L 501.2450, L100.0100, L500.4050 ####[facility] [address] [place], [address] Potassium [Moles/Vol] 3.8 mmol/L Normal 3.5-5.1 [facility] Comment on above: Performed By: #### L 501.2450, L100.0100, L500.4050 ####[facility] [address] [place], [address] Sodium [Moles/Vol] 138 mmol/L Normal 136-145 [facility] Comment on above: Performed By: #### L 501.2450, L100.0100, L500.4050 ####[facility] [address] [place], [address] T PROT 7.3 g/dL Normal 6.4-8.2 [facility] Comment on above: Performed By: #### L 501.2450, L100.0100, L500.4050 ####[facility] [address] [place], [address] Urea nitrogen [Mass/Vol] 13 mg/dL Normal 7-18 [facility] Comment on above: Performed By: #### L 501.2450, L100.0100, L500.4050 ####[facility] [address] [place], [address] Emergency Department Summary on 06-10-2024 Emergency Department Summary [facility] Medical Records Department [address] [place] [address] Emergency Department Summary 06/10/24 MR#: [id number] Acct: [id number] Name: ANDRE LUTHER Rep #: [id number] : 1950 74 From: Jose Johnson MD PCP: Dr. Abhishek Huynh MD Status:REG ER Location: ED HPI History of Present Illness Chief Complaint: Dizziness Detail of Chief Complaint: Multiple symptoms including dizziness, which patient defines as lightheaded Informant: patient and spouse/S.O. Onset/Context/Timing Onset: - (Varies depending on symptom. Detailed HPI narrative) Context: Sudden Onset Timing: Continuous Quality: Numbness right hand, intrascapular discomfort and numbness both legs and fe Location: Varies Current Severity: Mild Maximum Severity: Moderate Worsened by: Nothing Relieved by: nothing Associated Symptoms Associated Symptoms: Frontal head discomfort as well with no visual, ocular auditory symptoms Narrative Narrative: Patient is a 74-year-old woman with history of breast cancer. She states she has had intermittent numbness tingling of her right hand. The numbness tingling started a day or 2 after she scrubbed t he garage doors and garage floor. She has no history of carpal tunnel syndrome. She denies numbness in the distribution of the median nerve. It involves her entire hand and digits. She also reports intrascapular discomfort. She denies nausea, vomit or diarrhea. She denies intolerance to greasy or fried foods. There is no history of liver or biliary disease. She also has numbness tingling right side of chest which she has had intermittently since she had chemotherapy 3 years ago. Nothing makes the head discomfort better or worse. She denies rhinorrhea, congestion postnasal drainage sore throat. She denies double vision, blurred vision loss of vision. She denies ringing or ears or decreased hearing. She denies neck pain or neck stiffness. She does have a slight cough. Cough is nonproductive. She presently has no chest discomfort. She denies abdominal pain, nausea, vomit or diarrhea. She denies dysuria, frequency, urgency or hematuria. She denies history of renal ureterolithiasis. She denies black or maroon-colored stool. She denies diarrhea. Plus minus increased thirst. She specifically denies the room spinning or her spinning. Prior similar symptoms: Yes (Per HPI narrative) Recent Illness/Hospitalization: No PFSH PFS Medical History (Updated 06/10/24 @ 11:[address] Jose Johnson MD) Breast cancer High cholesterol Home Medications ???Medication ???Instructions ???Recorded ???Last Taken ???Type etodolac 400 mg tablet 400 mg PO Q12H 06/10/24 Unknown History gabapentin 300 mg capsule 300 mg PO DAILY 06/10/24 Unknown History rosuvastatin 10 mg tablet 10 mg PO QHS 06/10/24 Unknown History Allergy/AdvReac Type Severity Reaction Status Date / Time Cephalosporins Allergy Intermediate Rash Verified 06/10/24 09:27 nortriptyline Allergy Intermediate NEEDS Verified 06/10/24 09:27 FOLLOW-UP phenazopyridine (From Allergy Intermediate NEEDS Verified 06/10/24 09:27 Pyridium) FOLLOW-UP codeine AdvReac Intermediate Nausea Verified 06/10/24 09:27 house dust AdvReac Intermediate Itching Verified 06/10/24 09:27 doxycycline AdvReac Mild Nausea Verified 06/10/24 09:27 Social History (Updated 06/10/24 @ 10:[address] Jose Johnson MD) household members: spouse Smoking Status: Unknown if ever smoked ROS ROS ED Constitutional Constitutional ED: Denies chills, fever(s), subjective or sweats Eyes Eyes: Denies blurry vision, change in vision or diplopia ENT ENT ED: Denies ear pain or sore throat Cardiovascular Cardiovascular: Denies chest pain, orthopnea, palpitations, paroxysmal nocturnal dyspnea or racing heartbeat Respiratory/Chest Respiratory/Chest: Reports cough; Denies dyspnea, dyspnea on exertion, orthopnea, paroxysmal nocturnal dyspnea or sputum Gastrointestinal Gastrointestinal: Denies abdominal pain, constipation, diarrhea, melena or vomiting Genitourinary Genitourinary ED: Denies dysuria, hematuria or urinary frequency Musculoskeletal Musculoskeletal: Reports back pain; Denies arthralgias, myalgias or neck pain Integumentary Denies abscess or rash Neurologic Neurologic: Reports headache(s) and paresthesias RUE, RLE and LLE Psychiatric Psychiatric: Denies anxiety or depression Endocrine Endocrinology: Denies cold intolerance or heat intolerance Hematologic/Lymphatic Hematologic/Lymphatic: Reports systems reviewed and no addt'l complaints, except as documented EXAM Physical Exam Const Vital Signs: 06/10/24 09:23 06/10/24 10:00 Temperature 96.7 F L Temperature Source Temporal Pulse Rate 78 Pulse Rate [Lying] 73 Pulse Rate [Sitting (for 1 minute prior to obtaining)] 74 Pulse Rate [Sta (more content not included)... Normal [facility] Lipaseon 06-10-2024 Lipase [Catalytic activity/Vol] 63 U/L Normal 13-75 [facility] Comment on above: Result Comment: Camron barahona note: LIPASE revised reference range effective 23. New Lipase methodology. Expected to produce lower values than the previous assay method. NEW Reference Range: 13 - 75 U/L Performed By: #### L 501.2450, L100.0100, L500.4050 ####[facility] [address] [place], [address] SUPERFICIAL KERATECTOMY OD ( RIGHT EYE)on 04-06-2024 [facility] SUPERFICIAL KERATECTOMY OS ( LEFT EYE)on 04-06-2024 [facility] CORNEAL TOPOGRAPHY PENTACAM OU (BOTH EYES)on 03-27-2024 [facility] Radiology Study observation (narrative) [facility] OCT MACULA CIRRUS OU (BOTH E YES)on 02-27-2024 [facility] Radiology Study observation (narrative) [facility] CBC W Auto Differential pane l (Bld)on 09-04-2023 Basophils (Bld) [#/Vol] 0.05 10*3/uL <0.11 k/uL [facility] Basophils/100 WBC (Bld) 1.1 % C [facility] Differential cell count method Nom (Bld) Auto [facility] Eosinophils (Bld) [#/Vol] 0.17 10*3/uL <0.46 k/uL [facility] Eosinophils/100 WBC (Bld) 3.6 % [facility] Erythrocyte distribution width (RBC) [Ratio] 11.9 % 11.5 - 15.0 % [facility] Hematocrit (Bld) [Volume fraction] 44.7 % 36.0 - 46.0 % [facility] Hemoglobin (Bld) [Mass/Vol] 14.6 g/dL 11.5 - 15.5 g/dL [facility] Immature granulocytes (Bld) [#/Vol] 0.05 10*3/uL <0.10 k/uL [facility] Immature granulocytes/100 WBC (Bld) 1.1 % [facility] Lymphocytes (Bld) [#/Vol] 1.07 10*3/uL 1.00 - 4.00 k/uL [facility] Lymphocytes/100 WBC (Bld) 22.7 % [facility] MCH (RBC) [Entitic mass] 33.1 pg 26.0 - 34.0 pg [facility] MCHC (RBC) [Mass/Vol] 32.7 g/dL 30.5 - 36.0 g/dL [facility] MCV (RBC) [Entitic vol] 101.4 fL High 80.0 - 100.0 fL [facility] Monocytes (Bld) [#/Vol] 0.40 10*3/uL <0.87 k/uL [facility] Monocytes/100 WBC (Bld) 8.5 % C [facility] Neutrophils (Bld) [#/Vol] 2.97 10*3/uL 1.45 - 7.50 k/uL [facility] Neutrophils/100 WBC (Bld) 63.0 % [facility] Nucleated RBC (Bld) [#/Vol] <0.01 k/uL [facility] Nucleated RBC/100 WBC (Bld) [Ratio] 0.0 /100 WBC [facility] Platelet mean volume (Bld) [Entitic vol] 11.9 fL 9.0 - 12.7 fL [facility] Platelets (Bld) [#/Vol] 169 10*3/uL 150 - 400 k/uL [facility] RBC (Bld) [#/Vol] 4.41 10*6/uL 3.90 - 5.2 0 m/uL [facility] WBC (Bld) [#/Vol] 4.71 10*3/uL 3.70 - 11.00 k/uL [facility] UA DIP, URINE (POC)on 2022 BILIRUBIN UA (POCT) Moderate Abnormal Negative [facility] CLARITY UA (POCT) Clear [facility] COLOR UA (POCT) Yellow [facility] GLUCOSE UA (POCT) Negative Negative mg/dL [facility] Hemoglobin Ql (U) Negative Negative [facility] KETONE UA (POCT) Negative Negative mg/dL [facility] LEUKOCYTES UA (POCT) Negative Negative [facility] NITRITE UA (POCT) Negative Negative [facility] PH UA (POCT) 6.0 4.5 - 8.0 [facility] Protein Ql (U) Negative Negative mg/dL [facility] SPECIFIC GRAVITY UA (POCT) <=1.005 Abnormal 1.005 - 1.030 [facility] UROBILINOGEN UA (POCT) 0.2 E.U./dL Yesica l E.U./dL [facility] XR Cervical spine AP and Lat eral and obliqueon 11-22-2022 IMPRESSION: Cervical spine degenerative changes with multilevel disc space narrowing and left-sided C5-6 neural foraminal narrowing. 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: FREDDY Transcribe Date/Time: Nov 22 2022 11:44A Dictated by : KELVIN CHRISTIANSEN MD This examination was interpreted and the report reviewed and electronically signed by: KELVIN CHRISTIANSEN MD on Nov 22 2022 11:46AM [facility] DIVISION OF RADIOLOGY * * *Final Report* * * DATE OF EXAM: Nov 19 2022 12:08PM WOX [id number] - XR CERVICAL 4V AP/LAT/OBL / PROCEDURE REASON: Neck pain * * * * Physician Interpretation * * * * EXAM TITLE: XR CERVICAL 4V AP/LAT/OBL EXAM DATE/TIME: 11/19/2022 12:08 PM COMPARISON: None. CLINICAL INDICATION/HISTORY: Neck pain. TECHNIQUE: AP, lateral and oblique views of the cervical spine are presented. FINDINGS: No fractures or subluxations are noted. There is C5-6 and C6-7 disc space narrowing. There is mild osteophyte formation. Left-sided C5-6 neural foraminal narrowing is present. The prevertebral soft tissues are normal. DIVISION OF RADIOLOGY Provider, Vanna Steel - 11/22/2022 * * *Final Report* * * DATE OF EXAM: Nov 19 2022 12:08PM WOX [id number] - XR CERVICAL 4V AP/LAT/OBL / PROCEDURE REASON: Neck pain * * * * Physician Interpretation * * * * EXAM TITLE: XR CERVICAL 4V AP/LAT/OBL EXAM DATE/TIME: 11/19/2022 12:08 PM COMPARISON: None. CLINICAL INDICATION/HISTORY: Neck pain. TECHNIQUE: AP, lateral and oblique views of the cervical spine are presented. FINDINGS: No fractures or subluxations are noted. There is C5-6 and C6-7 disc space narrowing. There is mild osteophyte formation. Left-sided C5-6 neural foraminal narrowing is present. The prevertebral soft tissues are normal. IMPRESSION IMPRESSION: Cervical spine degenerative changes with multilevel disc space narrowing and left-sided C5-6 neural foraminal narrowing. 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: [facility] Transcribe Date/Time: Nov 22 2022 11:44A Dictated by : KELVIN CHRISTIANSEN MD This examination was interpreted and the report reviewed and electronically signed by: KELVIN CHRISTIANSEN MD on Nov 22 2022 11:46AM EST [facility] XR Cervical spine AP and Lat eral and obliqueOrdered By: Ccf Provider on 11-22-2022 [facility] XR Cervical spine AP and Lat eral and obliqueon 11-19-2022 Radiology Study observation (narrative) [facility] GERARDO SCREENINGon 08-16-2022 [facility] DXA-AXIAL SKELETONon 022 [facility] XR Chest PA and Lateralon IMPRESSION: No acute radiographic abnormality. 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: [facility] Transcribe Date/Time: Mar 28 2021 12:29P Dictated by : EVARISTO CRANDALL MD This examination was interpreted and the report reviewed and electronically signed by: EVARISTO CRANDALL MD on Mar 28 2021 12:30PM [facility] DIVISION OF RADIOLOGY * * *Final Report* * * DATE OF EXAM: Mar 28 2021 12:22PM WOX [id number] - XR CHEST 2V FRONTAL/LAT / PROCEDURE REASON: Cough * * * * Physician Interpretation * * * * EXAMINATION: CHEST RADIOGRAPH (2 VIEW FRONTAL & LATERAL) CLINICAL HISTORY: Cough MQ: XC2_6 EXAM DATE/TIME: 03/28/2021 12:22 PM COMPARISON: No relevant prior studies available. RESULT: Lines, tubes, and devices: None. Lungs and pleura: No consolidation. No lung mass. No pleural effusion. No pneumothorax. Cardiomediastinal silhouette: Normal cardiomediastinal silhouette. Bones and soft tissues: Mild scoliosis DIVISION OF RADIOLOGY Provider, Vanna mckeon [place] - 03/28/2021 * * *Final Report* * * DATE OF EXAM: Mar 28 2021 12:22PM WOX [id number] - XR CHEST 2V FRONTAL/LAT / PROCEDURE REASON: Cough * * * * Physician Interpretation * * * * EXAMINATION: CHEST RADIOGRAPH (2 VIEW FRONTAL & LATERAL) CLINICAL HISTORY: Cough MQ: XC2_6 EXAM DATE/TIME: 03/28/2021 12:22 PM COMPARISON: No relevant prior studies available. RESULT: Lines, tubes, and devices: None. Lungs and pleura: No consolidation. No lung mass. No pleural effusion. No pneumothorax. Cardiomediastinal silhouette: Normal cardiomediastinal silhouette. Bones and soft tissues: Mild scoliosis IMPRESSION IMPRESSION: No acute radiographic abnormality. 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 Transcribe Date/Time: Mar 28 2021 12:29P Dictated by : EVARISTO CRANDALL MD This examination was interpreted and the report reviewed and electronically signed by: EVARISTO CRANDALL MD on Mar 28 2021 12:30PM EST [facility] Radiology Study observation (narrative) [facility] XR Chest PA and LateralOrder ed By: Ccf Provider on 03-28-2021 [facility] OCT MACULA CIRRUS OU (BOTH E YES) [facility] Vital Signs Date Time Vital Sign Value Performing Clinician Rea chino 03-02-2025 14:27-0400 Body mass index (BMI) [Ratio] 26.98 kg/m2 Carlton Verde MD Work Phone: [facility] 03-02-2025 14:27-0400 Body weight 64.77 kg Carlton Verde MD Work Phone: [facility] 03-02-2025 14:27-0400 Diastolic blood pressure 84 mm[Hg] Carlton Verde MD Work Phone: [facility] 03-02-2025 14:27-0400 Heart rate 72 /min Carlton Verde MD Work Phone: [facility] 03-02-2025 14:27-0400 SaO2% (BldA) [Mass fraction] 99 % Carlton Verde MD Work Phone: [facility] 03-02-2025 14:27-0400 Systolic blood pressure 148 mm[Hg] Carlton Verde MD Work Phone: [facility] 02-12-2025 09:24-0400 Body mass index (BMI) [Ratio] 27.49 kg/m2 Radha Her FUR FINISHER.PLASTERING SUPERVISOR Work Phone: [facility] 02-12-2025 09:24-0400 Body temperature 98.2 [degF] Radha Her FUR FINISHER.PLASTERING SUPERVISOR Work Phone: [facility] 02-12-2025 09:24-0400 Body weight 66 kg Lowell Her FUR FINISHER.PLASTERING SUPERVISOR Work Phone: [facility] 02-12-2025 09:24-0400 Diastolic blood pressure 84 mm[Hg] Lowell Her FUR FINISHER.PLASTERING SUPERVISOR Work Phone: [facility] 02-12-2025 09:24-0400 Heart rate 74 /min Radha Her FUR FINISHER.PLASTERING SUPERVISOR Work Phone: [facility] 02-12-2025 09:24-0400 SaO2% (BldA) [Mass fraction] 97 % Radha Her FUR FINISHER.PLASTERING SUPERVISOR Work Phone: [facility] 02-12-2025 09:24-0400 Systolic blood pressure 141 mm[Hg] Lowell Her FUR FINISHER.PLASTERING SUPERVISOR Work Phone: [facility] 01-14-2025 10:32-0400 Body height 156.2 cm Anasua Bandyopadhyay PA Work Phone: [facility] 01-14-2025 10:32-0400 Body mass index (BMI) [Ratio] 26.64 kg/m2 Anasua Bandyopadhyay PA Work Phone: [facility] 01-14-2025 10:32-0400 Body weight 65 kg Anasua Bandyopadhyay PA Work Phone: [facility] 01-14-2025 10:32-0400 Diastolic blood pressure 90 mm[Hg] Deannadanni Marquis PA Work Phone: [facility] 01-14-2025 10:32-0400 Heart rate 82 /min Jacobroddy Marquis PA Work Phone: [facility] 01-14-2025 10:32-0400 Systolic blood pressure 156 mm[Hg] Alejandro Jose Francisco PA Work Phone: [facility] 12-22-2024 01:22-0400 Body temperature 98 [degF] Dr. Abhishek Huynh MD Work Phone: 5(645)[phone] [place] [address] 12-22-2024 01:22-0400 Diastolic blood pressure 78 mm[Hg] Dr. Abhishek Huynh MD Work Phone: 4(630)743-780907 [place] [address] 12-22-2024 01:22-0400 Heart rate 72 /min Dr. Abhishek Huynh MD Work Phone: 4(497)[phone] [place] [address] 12-22-2024 01:22-0400 Respiratory rate 16 /min Dr. Abhishek Huynh MD Work Phone: 5(109)[phone] [place] [address] 12-22-2024 01:22-0400 SaO2% (BldA) [Mass fraction] 97 % Dr. Abhishek Huynh MD Work Phone: [facility] 12-22-2024 01:22-0400 Systolic blood pressure 124 mm[Hg] Dr. Abhishek Huynh MD Work Phone: [facility] 12-21-2024 23:22-0400 Body height 160.[address] Abhishek Huynh MD Work Phone: 8(820)[phone] [place] [address] 12-21-2024 23:22-0400 Body mass index (BMI) [Ratio] 26.2 kg/m2 Dr. Abhishek Huynh MD Work Phone: [facility] 12-21-2024 23:22-0400 Body weight 67.[address] Abhishek Huynh MD Work Phone: [facility] 07-16-2024 08:59-0400 Body mass index (BMI) [Ratio] 27.91 kg/m2 Radha Her FUR FINISHER.PLASTERING SUPERVISOR Work Phone: [facility] 07-16-2024 08:59-0400 Body temperature 98.29 [degF] Radha Her FUR FINISHER.PLASTERING SUPERVISOR Work Phone: [facility] 07-16-2024 08:59-0400 Body weight 67 kg Radha Knottenter FUR FINISHER.PLASTERING SUPERVISOR Work Phone: [facility] 07-16-2024 08:59-0400 Diastolic blood pressure 91 mm[Hg] Radha Her FUR FINISHER.PLASTERING SUPERVISOR Work Phone: [facility] 07-16-2024 08:59-0400 Heart rate 80 /min Radha Her FUR FINISHER.PLASTERING SUPERVISOR Work Phone: [facility] 07-16-2024 08:59-0400 SaO2% (BldA) [Mass fraction] 99 % Radha Knottenter FUR FINISHER.PLASTERING SUPERVISOR Work Phone: [facility] 07-16-2024 08:59-0400 Systolic blood pressure 151 mm[Hg] Radha Knottenter FUR FINISHER.PLASTERING SUPERVISOR Work Phone: [facility] 07-01-2024 10:23-0400 Diastolic blood pressure 80 mm[Hg] Abhishek Huynh MD Work Phone: [facility] 07-01-2024 10:23-0400 Systolic blood pressure 132 mm[Hg] Abhishek Huynh MD Work Phone: [facility] 07-01-2024 09:54-0400 Body mass index (BMI) [Ratio] 27.41 kg/m2 Abhishek Huynh MD Work Phone: [facility] 07-01-2024 09:54-0400 Body weight 65.8 kg Abhishek Huynh MD Work Phone: [facility] 07-01-2024 09:54-0400 Heart rate 87 /min Abhishek Huynh MD Work Phone: [facility] 07-01-2024 09:54-0400 SaO2% (BldA) [Mass fraction] 99 % Abhishek Huynh MD Work Phone: [facility] 06-15-2024 19:20-0400 Body mass index (BMI) [Ratio] 27.7 kg/m2 Abhishek Huynh MD Work Phone: [facility] 06-15-2024 19:20-0400 Body weight 66.5 kg Abhishek Huynh MD Work Phone: [facility] 06-15-2024 19:20-0400 Diastolic blood pressure 88 mm[Hg] Abhishek Huynh MD Work Phone: [facility] 06-15-2024 19:20-0400 Heart rate 46 /min Abhishek Huynh MD Work Phone: [facility] 06-15-2024 19:20-0400 SaO2% (BldA) [Mass fraction] 95 % Abihshek Huynh MD Work Phone: [facility] 06-15-2024 19:20-0400 Systolic blood pressure 132 mm[Hg] Abhishek Huynh MD Work Phone: [facility] 03-09-2024 18:53-0400 Body mass index (BMI) [Ratio] 27.4 kg/m2 Abhishek Huynh MD Work Phone: [facility] 03-09-2024 18:53-0400 Body weight 65.77 kg Abhishek Huynh MD Work Phone: [facility] 03-09-2024 18:53-0400 Diastolic blood pressure 72 mm[Hg] Abhishek Huynh MD Work Phone: [facility] 03-09-2024 18:53-0400 Heart rate 67 /min Abhishek Huynh MD Work Phone: [facility] 03-09-2024 18:53-0400 SaO2% (BldA) [Mass fraction] 98 % Abhishek Huynh MD Work Phone: [facility] 03-09-2024 18:53-0400 Systolic blood pressure 132 mm[Hg] Abhishek Huynh MD Work Phone: [facility] 02-18-2024 09:20-0400 Body mass index (BMI) [Ratio] 27.34 kg/m2 Radha Her FUR FINISHER.PLASTERING SUPERVISOR Work Phone: [facility] 02-18-2024 09:20-0400 Body temperature 97.5 [degF] Radha Her FUR FINISHER.PLASTERING SUPERVISOR Work Phone: [facility] 02-18-2024 09:20-0400 Body weight 65.64 kg Radha Her FUR FINISHER.PLASTERING SUPERVISOR Work Phone: [facility] 02-18-2024 09:20-0400 Diastolic blood pressure 88 mm[Hg] Radha Her FUR FINISHER.PLASTERING SUPERVISOR Work Phone: [facility] 02-18-2024 09:20-0400 Heart rate 80 /min Radha Her FUR FINISHER.PLASTERING SUPERVISOR Work Phone: [facility] 02-18-2024 09:20-0400 SaO2% (BldA) [Mass fraction] 97 % Radha Her FUR FINISHER.PLASTERING SUPERVISOR Work Phone: [facility] 02-18-2024 09:20-0400 Systolic blood pressure 138 mm[Hg] Radha Her FUR FINISHER.PLASTERING SUPERVISOR Work Phone: [facility] 12-23-2023 18:58-0400 Diastolic blood pressure 84 mm[Hg] Abhishek Huynh MD Work Phone: [facility] 12-23-2023 18:58-0400 Systolic blood pressure 132 mm[Hg] Abhishek Huynh MD Work Phone: [facility] 12-23-2023 18:15-0400 Body weight 66.22 kg Abhishek Huynh MD Work Phone: [facility] 12-23-2023 18:15-0400 Heart rate 75 /min Abhishek Huynh MD Work Phone: [facility] 12-23-2023 18:15-0400 SaO2% (BldA) [Mass fraction] 99 % Abhishek Huynh MD Work Phone: [facility] 09-03-2023 16:09-0500 Diastolic blood pressure 86 mm[Hg] Abhishek Huynh MD Work Phone: [facility] 09-03-2023 16:09-0500 Systolic blood pressure 124 mm[Hg] Abhishek Huynh MD Work Phone: [facility] 09-03-2023 15:48-0500 Body height 154.9 cm Abhishek Huynh MD Work Phone: [facility] 09-03-2023 15:48-0500 Body weight 66.86 kg Abhishek Huynh MD Work Phone: [facility] 09-03-2023 15:48-0500 Heart rate 78 /min Abhishek Huynh MD Work Phone: [facility] 09-03-2023 15:48-0500 SaO2% (BldA) [Mass fraction] 97 % Abhishek Huynh MD Work Phone: [facility] 05-31-2023 09:44-0400 Body height 156.2 cm Gabriela Concepcion MD Work Phone: [facility] 05-31-2023 09:44-0400 Body weight 66.22 kg Gabriela Concepcion MD Work Phone: [facility] 05-31-2023 09:44-0400 Diastolic blood pressure 85 mm[Hg] Gabriela Concepcion MD Work Phone: [facility] 05-31-2023 09:44-0400 Systolic blood pressure 141 mm[Hg] Gabriela Concepcion MD Work Phone: [facility] 05-24-2023 10:09-0400 Body weight 66.13 kg Abhishek Huynh MD Work Phone: [facility] 05-24-2023 10:09-0400 Diastolic blood pressure 60 mm[Hg] Abhishek Huynh MD Work Phone: [facility] 05-24-2023 10:09-0400 Heart rate 66 /min Abhishek Huynh MD Work Phone: [facility] 05-24-2023 10:09-0400 Respiratory rate 16 /min Abhishek Huynh MD Work Phone: [facility] 05-24-2023 10:09-0400 SaO2% (BldA) [Mass fraction] 92 % Abhishek Huynh MD Work Phone: [facility] 05-24-2023 10:09-0400 Systolic blood pressure 110 mm[Hg] Abhishek Huynh MD Work Phone: [facility] 02-27-2023 14:11-0400 Diastolic blood pressure 86 mm[Hg] Abhishek Huynh MD Work Phone: [facility] 02-27-2023 14:11-0400 Systolic blood pressure 136 mm[Hg] Abhishek Huynh MD Work Phone: [facility] 02-27-2023 13:56-0400 Body height 154.9 cm Abhishek Huynh MD Work Phone: [facility] 02-27-2023 13:56-0400 Body weight 64.95 kg Abhishek Huynh MD Work Phone: [facility] 02-27-2023 13:56-0400 Heart rate 90 /min Abhishek Huynh MD Work Phone: [facility] 02-27-2023 13:56-0400 SaO2% (BldA) [Mass fraction] 97 % Abhishek Huynh MD Work Phone: [facility] 01-23-2023 08:33-0400 Body weight 64.41 kg Aileen Albright APRN.PLASTERING SUPERVISOR Work Phone: [facility] 01-23-2023 08:33-0400 Diastolic blood pressure 68 mm[Hg] Aileen Albright APRN.PLASTERING SUPERVISOR Work Phone: [facility] 01-23-2023 08:33-0400 Systolic blood pressure 126 mm[Hg] Aileen Albright APRN.PLASTERING SUPERVISOR Work Phone: [facility] 11-28-2022 08:28-0500 Body temperature 98.01 [degF] Radha Her APRN.PLASTERING SUPERVISOR Work Phone: [facility] 11-28-2022 08:28-0500 Body weight 65.32 kg Lowell Her FUR FINISHER.PLASTERING SUPERVISOR Work Phone: [facility] 11-28-2022 08:28-0500 Diastolic blood pressure 77 mm[Hg] Lowell Her FUR FINISHER.PLASTERING SUPERVISOR Work Phone: [facility] 11-28-2022 08:28-0500 Heart rate 76 /min Radha Her FUR FINISHER.PLASTERING SUPERVISOR Work Phone: [facility] 11-28-2022 08:28-0500 Systolic blood pressure 142 mm[Hg] Radha Her FUR FINISHER.PLASTERING SUPERVISOR Work Phone: [facility] 11-19-2022 11:11-0500 Diastolic blood pressure 90 mm[Hg] Ivette Haagen FUR FINISHER.PLASTERING SUPERVISOR Work Phone: [facility] 11-19-2022 11:11-0500 Heart rate 80 /min Ivette Haagen FUR FINISHER.PLASTERING SUPERVISOR Work Phone: [facility] 11-19-2022 11:11-0500 Respiratory rate 18 /min Ivette Haagen FUR FINISHER.PLASTERING SUPERVISOR Work Phone: [facility] 11-19-2022 11:11-0500 SaO2% (BldA) [Mass fraction] 97 % Ivette Haagen FUR FINISHER.PLASTERING SUPERVISOR Work Phone: [facility] 11-19-2022 11:11-0500 Systolic blood pressure 132 mm[Hg] Ivette Haagen FUR FINISHER.PLASTERING SUPERVISOR Work Phone: [facility] 10-20-2022 14:28-0500 Body temperature 98.1 [degF] Rosalba Denbow PA-C Work Phone: [facility] 10-20-2022 14:28-0500 Body weight 64.68 kg Rosalba Denbow PA-C Work Phone: [facility] 10-20-2022 14:28-0500 Diastolic blood pressure 74 mm[Hg] Rosalba Denbow PA-C Work Phone: [facility] 10-20-2022 14:28-0500 Heart rate 87 /min Rosalba Denbow PA-C Work Phone: [facility] 10-20-2022 14:28-0500 Respiratory rate 18 /min Rosalba Denbow PA-C Work Phone: [facility] 10-20-2022 14:28-0500 SaO2% (BldA) [Mass fraction] 99 % Rosalba Denbow PA-C Work Phone: [facility] 10-20-2022 14:28-0500 Systolic blood pressure 122 mm[Hg] Rosalba Denbow PA-C Work Phone: [facility] 09-21-2022 08:48-0500 Body height 153.7 cm Vibha Rosa MD Work Phone: [facility] 09-21-2022 08:48-0500 Body weight 64.95 kg Vibha Rosa MD Work Phone: [facility] 09-21-2022 08:48-0500 Diastolic blood pressure 80 mm[Hg] Vibha Rosa MD Work Phone: [facility] 09-21-2022 08:48-0500 Systolic blood pressure 120 mm[Hg] Vibha Rosa MD Work Phone: [facility] 05-14-2022 14:22-0400 Diastolic blood pressure 88 mm[Hg] Ivette Haagen FUR FINISHER.PLASTERING SUPERVISOR Work Phone: [facility] 05-14-2022 14:22-0400 Heart rate 91 /min Ivette Haagen FUR FINISHER.PLASTERING SUPERVISOR Work Phone: [facility] 05-14-2022 14:22-0400 Respiratory rate 18 /min Ivette Haagen FUR FINISHER.PLASTERING SUPERVISOR Work Phone: [facility] 05-14-2022 14:22-0400 SaO2% (BldA) [Mass fraction] 95 % Ivette Haagen FUR FINISHER.PLASTERING SUPERVISOR Work Phone: [facility] 05-14-2022 14:22-0400 Systolic blood pressure 130 mm[Hg] Ivette Haagen FUR FINISHER.PLASTERING SUPERVISOR Work Phone: [facility] 02-01-2022 17:24-0400 Body weight 65.32 kg NA Waller PA-C Work Phone: [facility] 02-01-2022 17:24-0400 Diastolic blood pressure 68 mm[Hg] NA Waller PA-C Work Phone: [facility] 02-01-2022 17:24-0400 Heart rate 84 /min NA Waller PA-C Work Phone: [facility] 02-01-2022 17:24-0400 Respiratory rate 16 /min NA Waller PA-C Work Phone: [facility] 02-01-2022 17:24-0400 SaO2% (BldA) [Mass fraction] 98 % NA Waller PA-C Work Phone: [facility] 02-01-2022 17:24-0400 Systolic blood pressure 120 mm[Hg] NA Waller PA-C Work Phone: [facility] 01-29-2022 09:22-0400 Body height 156 cm Lowell Her FUR FINISHER.PLASTERING SUPERVISOR Work Phone: [facility] 01-29-2022 09:22-0400 Body temperature 97.81 [degF] Radha Her FUR FINISHER.PLASTERING SUPERVISOR Work Phone: [facility] 01-29-2022 09:22-0400 Body weight 65.77 kg Radha Her FUR FINISHER.PLASTERING SUPERVISOR Work Phone: [facility] 01-29-2022 09:22-0400 Diastolic blood pressure 80 mm[Hg] Radha Her FUR FINISHER.PLASTERING SUPERVISOR Work Phone: [facility] 01-29-2022 09:22-0400 Heart rate 77 /min Lowell Her FUR FINISHER.PLASTERING SUPERVISOR Work Phone: [facility] 01-29-2022 09:22-0400 SaO2% (BldA) [Mass fraction] 100 % Lowell Her FUR FINISHER.PLASTERING SUPERVISOR Work Phone: [facility] 01-29-2022 09:22-0400 Systolic blood pressure 139 mm[Hg] Radha Her FUR FINISHER.PLASTERING SUPERVISOR Work Phone: [facility] Encounters Encounter Date Encounter Type Care Provider Facility Start: 07-27-2025 End: 07-27-2025 [facility] Facility:[facility] Start: 07-26-2025 End: 07-26-2025 [facility] Facility:[facility] Start: 07-15-2025 End: 07-15-2025 [facility] Facility:[facility] Start: 07-02-2025 End: 07-02-2025 [facility] Facility:[facility] Start: 07-02-2025 Patient encounter procedure [facility] Start: 06-15-2025 End: 06-15-2025 Patient encounter procedure Nurse Urol Work Phone: Urology Comment on above: Malignant neoplasm o f overlapping sites of bladder (HCC) (Primary Dx) Start: 06-15-2025 End: 06-15-2025 [facility] Facility:[facility] Start: 05-13-2025 End: 05-13-2025 Patient encounter procedure Nurse Urol Bladder Instillation Work Phone: Urology Comment on above: Malignant neoplasm o f upper-outer quadrant of right breast in female, estrogen receptor positive (HCC) (Primary Dx); Malignant neoplasm of overlapping sites of bladder (HCC) Start: 05-13-2025 End: 05-13-2025 [facility] Facility:[facility] Start: 05-06-2025 End: 05-06-2025 [facility] Facility:[facility] Start: 04-26-2025 End: 04-26-2025 Patient encounter procedure Nikole Bailey MD Work Phone: Urology Comment on above: Screening for genito urinary condition (Primary Dx); History of bladder cancer; Malignant neoplasm of overlapping sites of bladder (HCC) Start: 04-26-2025 End: 04-26-2025 [facility] Facility:[facility] Start: 03-19-2025 End: 03-19-2025 Patient encounter procedure Nurse Urol Bladder Instillation Work Phone: Urology Comment on above: Malignant neoplasm o f upper-outer quadrant of right breast in female, estrogen receptor positive (HCC) (Primary Dx) Start: 03-19-2025 End: 03-19-2025 ambulatory [facility] Facility:[facility] Start: 03-12-2025 End: 03-12-2025 Patient encounter procedure Nurse Urol Bladder Instillation Work Phone: Urology Comment on above: Malignant neoplasm o f upper-outer quadrant of right breast in female, estrogen receptor positive (HCC) (Primary Dx) Start: 03-12-2025 End: 03-12-2025 [facility] Facility:[facility] Start: 03-05-2025 End: 03-05-2025 Patient encounter procedure Nurse Urol Bladder Instillation Work Phone: Urology Comment on above: Malignant neoplasm o f upper-outer quadrant of right breast in female, estrogen receptor positive (HCC) (Primary Dx) Start: 03-05-2025 End: 03-05-2025 [facility] Facility:[facility] Start: 03-02-2025 End: 03-02-2025 [facility] Facility:[facility] Start: 03-02-2025 End: 03-02-2025 Patient encounter procedure Cartlon Verde MD Work Phone: Cardiology Comment on above: Hypercholesteremia ( Primary Dx); PVC (premature ventricular contraction); Cardiac risk counseling; Elevated blood pressure reading without diagnosis of hypertension Macular hole, bilate ral (Primary Dx) Start: 03-02-2025 End: 03-02-2025 [facility] Facility:[facility] Start: 02-25-2025 End: 02-25-2025 Orders Only Nikole Bailey MD Work Phone: Urology Comment on above: Refill Request Start: 02-23-2025 End: 02-23-2025 Orders Only Xavier Tyler RN Work Phone: Urology Comment on above: Urinary urgency (Danelle selvin Dx); Bladder irritation Bladder Spasms Start: 02-18-2025 End: 02-18-2025 ambulatory [facility] Facility:[facility] Start: 02-17-2025 End: 04-19-2025 Follow-up encounter Abhishek Huynh MD Work Phone: [facility] Start: 02-16-2025 End: 02-16-2025 ambulatory [facility] Facility:[facility] Start: 02-12-2025 End: 02-12-2025 Follow-up encounter Radha Her APRN.PLASTERING SUPERVISOR Work Phone: Hematology/Oncology Comment on above: Encounter for follow -up surveillance of breast cancer (Primary Dx); Malignant neoplasm of upper-outer quadrant of right breast in female, estrogen receptor positive (HCC); Encounter for screening mammogram for high-risk patient Start: 02-12-2025 End: 02-12-2025 Patient encounter procedure Radha Her APRN.PLASTERING SUPERVISOR Work Phone: Hematology/Oncology Start: 02-12-2025 End: 02-12-2025 ambulatory [facility] Facility:[facility] Start: 02-09-2025 End: 02-09-2025 Patient encounter procedure Nurse Urol Work Phone: Urology Comment on above: Malignant neoplasm o f upper-outer quadrant of right breast in female, estrogen receptor positive (HCC) (Primary Dx) Start: 02-09-2025 End: 02-09-2025 [facility] Facility:[facility] Start: 01-29-2025 End: 01-29-2025 Telephone encounter Tika Morel RN [facility] Comment on above: Returning Patient's Call Start: 01-29-2025 End: 01-29-2025 ambulatory [facility] Facility:[facility] Start: 01-20-2025 End: 01-20-2025 ambulatory [facility] Facility:[facility] Start: 01-19-2025 End: 03-21-2025 Follow-up encounter Nikole Bailey MD Work Phone: Urology Start: 01-14-2025 End: 01-14-2025 Patient encounter procedure Nikole Bailey MD Work Phone: Urology Comment on above: Pre-op exam (Primary Dx); Neoplasm of bladder Start: 01-14-2025 End: 01-14-2025 Preprocedural examination done Nikole Bailey MD Work Phone: [facility] Work Phone: Start: 01-14-2025 End: 01-18-2025 ambulatory Alejandro MUELLER Work Phone: Urology Start: 01-14-2025 Encounter for other preprocedural examination NIKOLE BAILEY [facility] Start: 01-12-2025 End: 01-12-2025 Telephone encounter Felicitas Dewey RN Work Phone: Urology Comment on above: Hat Braider - O ther; Preparations For Surgery Start: 01-11-2025 End: 03-13-2025 Follow-up encounter Nikole Bailey MD Work Phone: Urology Start: 01-08-2025 End: 03-10-2025 Follow-up encounter Nikole Bailey MD Work Phone: Urology Start: 01-08-2025 ambulatory NIKOLE BAILEY Facility :[facility] Start: 01-08-2025 End: 01-08-2025 Subsequent hospital visit by physician [facility] Work Phone: [facility] Comment on above: Screening for genito urinary condition [Z13.89] Start: 01-07-2025 End: 01-07-2025 ambulatory [facility] Facility:[facility] Start: 01-07-2025 End: 01-07-2025 ambulatory [facility] Facility:[facility] Start: 01-06-2025 End: 01-06-2025 Office consultation new/estab patient 60 min Nikole Bailey MD Work Phone: Urology Comment on above: Screening for genito urinary condition Start: 01-06-2025 End: 01-11-2025 ambulatory Felicitas Dewey RN Work Phone: Urology Start: 12-28-2024 End: 12-28-[address] Abhishek Huynh MD Work Phone: [facility] Work Phone: Start: 12-28-2024 End: 12-28-[address] Dee Mondragon MD -Laboratory, Specimen Work Phone: Start: 12-28-2024 End: 12-28-2024 ambulatory [facility] Facility:[facility] Start: 12-22-2024 End: 12-22-2024 Telephone encounter Abhishek Huynh MD Work Phone: [facility] [place] Comment on above: Patient Update; Chantell ent Question Start: 12-21-2024 End: 12-22-2024 Emergency department patient visit Dr. Abhishek Huynh MD Work Phone: -Emergency Department Work Phone: Start: 12-18-2024 End: 12-21-2024 Refill Radha Her FUR FINISHER.PLASTERING SUPERVISOR Work Phone: Hematology/Oncology Comment on above: Refill Request Start: 12-07-2024 End: 12-07-2024 Refill Radha Her FUR FINISHER.PLASTERING SUPERVISOR Work Phone: Hematology/Oncology Comment on above: Refill Request Start: 10-09-2024 End: 10-09-2024 ambulatory [facility] Facility:[facility] Start: 09-16-2024 End: 09-16-2024 ambulatory Farzana Lemfrancisco PT [facility] Start: 09-16-2024 End: 09-16-2024 Follow-up encounter Farzana Hidalgo PT [facility] Comment on above: Encounter for follow -up surveillance of breast cancer (Primary Dx) Start: 09-02-2024 End: 09-02-2024 Orders Only Carlton Verde MD Work Phone: Cardiology Comment on above: Elevated blood press ure reading without diagnosis of hypertension (Primary Dx); Moderate mixed hyperlipidemia not requiring statin therapy Start: 08-20-2024 End: 08-20-2024 Telephone encounter Radha Her APRN.CNP Work Phone: Hematology/Oncology Start: 08-20-2024 End: 08-20-2024 ambulatory ABHISHEK HUYNH Facility:[facility] Start: 08-20-2024 End: 08-20-2024 Subsequent hospital visit by physician [facility] Comment on above: Personal history of malignant neoplasm of breast [Z85.3] Start: 08-17-2024 End: 08-17-2024 ambulatory Farzana Hidalgo PT [facility] Start: 08-17-2024 End: 08-17-2024 Follow-up encounter Farzana Hidalgo PT [facility] Comment on above: Encounter for follow -up surveillance of breast cancer (Primary Dx); Personal history of malignant neoplasm of breast Start: 08-12-2024 End: 08-13-2024 Refill Radha Her APRN.CNP Work Phone: Hematology/Oncology Comment on above: Refill Request Start: 07-16-2024 End: 07-16-2024 Follow-up encounter Radha Her APRN.CNP Work Phone: Hematology/Oncology Comment on above: Encounter for follow -up surveillance of breast cancer (Primary Dx); Personal history of malignant neoplasm of breast Start: 07-16-2024 End: 07-16-2024 Patient encounter procedure Radha Her APRN.CNP Work Phone: Hematology/Oncology Start: 07-15-2024 End: 07-16-2024 Telephone encounter Radha Her APRN.CNP Work Phone: Hematology/Oncology Comment on above: Patient Question Start: 07-01-2024 End: 07-01-2024 Patient encounter procedure Abhishek Huynh MD Work Phone: [facility] Comment on above: Elevated blood press ure reading without diagnosis of hypertension (Primary Dx); Mild intermittent asthma without complication; PVC (premature ventricular contraction); GERD without esophagitis; Malignant neoplasm of upper-outer quadrant of right breast in female, estrogen receptor positive (HCC); Osteopenia, unspecified location; Allergy, subsequent encounter; Mixed hyperlipidemia Start: 06-15-2024 End: 06-15-2024 Patient encounter procedure Abhishek Huynh MD Work Phone: [facility] Comment on above: Elevated blood press ure reading without diagnosis of hypertension (Primary Dx); Mild intermittent asthma without complication; GERD without esophagitis; Malignant neoplasm of upper-outer quadrant of right breast in female, estrogen receptor positive (HCC); Primary osteoarthritis of left knee; Lightheaded; Numbness of right hand; Leukopenia, unspecified type; Screening for depression; Encounter for screening examination for other mental health and behavioral disorders Start: 06-10-2024 End: 06-10-2024 Emergency department patient visit 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); Regular astigmatism of both eyes; Meibomian gland dysfunction (MGD) of upper and lower lids of both eyes; Dry eye syndrome of bilateral lacrimal glands; Macular hole, bilateral Start: 04-14-2024 Telephone encounter Felicitas kan OD Work Phone: [facility] Comment on above: Appointment Start: 04-13-2024 End: 04-13-2024 Patient encounter procedure Christopher Puente MD Work Phone: Ophthalmology Comment on above: 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) Start: 04-06-2024 End: 04-06-2024 Patient encounter procedure Christopehr Puente MD Work Phone: Ophthalmology Comment on above: 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); Post-op pain Start: 04-01-2024 End: 04-01-2024 Patient encounter procedure Estrada Reddy DO Work Phone: [facility] Comment on above: Pain in right ordoñez ( Primary Dx) Start: 04-01-2024 End: 04-01-2024 Subsequent hospital visit by physician Teodoro [facility] Say Jade Work Phone: Radiology Comment on above: Pain in right ordoñez [ M79.661] Start: 03-27-2024 End: 03-27-2024 Patient encounter procedure Christopher Puente MD Work Phone: Ophthalmology Comment on above: 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) Start: 03-26-2024 Orders Only Estrada Barry Stallings O Work Phone: Orthopaedics Comment on above: Pain in right ordoñez ( Primary Dx) Start: 03-09-2024 End: 03-09-2024 Patient encounter procedure Abhishek Huynh MD Work Phone: [facility] [place] Comment on above: Pain of left lower e xtremity (Primary Dx); Elevated blood pressure reading without diagnosis of hypertension; GERD without esophagitis Start: 02-27-2024 End: 02-27-2024 Patient encounter procedure Marialuisa Brown MD Work Phone: Ophthalmology Comment on above: Macular hole, bilate ral (Primary Dx) Start: 02-18-2024 End: 02-18-2024 ambulatory Radha Her FUR FINISHER.PLASTERING SUPERVISOR Work Phone: Hematology/Oncology Comment on above: Personal history of malignant neoplasm of breast (Primary Dx); Encounter for screening mammogram for high-risk patient Refill Request Start: 02-18-2024 End: 02-18-2024 Patient encounter procedure Radha Her FUR FINISHER.PLASTERING SUPERVISOR Work Phone: Hematology/Oncology Start: 02-14-2024 Refill Ivette Diaz FUR FINISHER.PLASTERING SUPERVISOR Work Phone: [facility] [place] Comment on above: Refill Request Start: 01-23-2024 End: 01-23-2024 Subsequent hospital visit by physician Bone Density [facility] Wstr Work Phone: Radiology Comment on above: Osteopenia, unspecif ied location [M85.80] Start: 12-23-2023 End: 12-23-2023 Patient encounter procedure Abhishek Huynh MD Work Phone: [facility] [place] Comment on above: Elevated blood press ure reading without diagnosis of hypertension (Primary Dx); PVC (premature ventricular contraction); Malignant neoplasm of upper-outer quadrant of right breast in female, estrogen receptor positive (HCC); Mild intermittent asthma without complication; Osteopenia, unspecified location; Mixed hyperlipidemia; PND (post-nasal drip); Situational anxiety; Encounter for screening for osteoporosis; Asymptomatic menopausal state Start: 12-03-2023 End: 12-03-2023 Patient encounter procedure Felicitas Gonzales OD Work Phone: Ophthalmology Comment on above: Regular astigmatism of both eyes (Primary Dx); 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; Meibomian gland dysfunction (MGD) of upper and lower lids of both eyes; Dry eye syndrome of bilateral lacrimal glands; Macular hole, bilateral Start: 09-03-2023 End: 09-03-2023 Patient encounter procedure Abhishek Huynh MD Work Phone: [facility] Comment on above: Paresthesia (Primary Dx); Situational anxiety Start: 08-26-2023 Chart abstracting Cheryl Bae RN Hematology/Oncology Comment on above: Research ([id number] Presentation) Start: 06-05-2023 Telephone encounter Radha garzon APRN.CNP Work Phone: Hematology/Oncology Comment on above: Refill Request Start: 05-31-2023 End: 05-31-2023 Patient encounter procedure Gabriela Concepcion MD Work Phone: MAMMALOGY TEACHER [facility] Comment on above: Rectocele (Primary D x); Urethral caruncle; Vaginal atrophy Start: 05-24-2023 End: 05-24-2023 Patient encounter procedure Abhishek Huynh MD Work Phone: [facility] Comment on above: Elevated blood press ure reading without diagnosis of hypertension (Primary Dx); PVC (premature ventricular contraction); GERD without esophagitis; Osteopenia, unspecified location; Mixed hyperlipidemia Start: 05-13-2023 Refill Abhishek Huynh MD Work Phone: [facility] Comment on above: Refill Request Start: 04-16-2023 End: 04-16-2023 ambulatory Leonor Cheema PT Work Phone: [facility] Comment on above: Rectocele (Primary D x); Cystocele, midline; Muscle weakness Start: 03-22-2023 End: 03-22-2023 ambulatory Leonor Cheema PT Work Phone: [facility] Comment on above: Rectocele (Primary D x); Cystocele, midline; Muscle weakness Start: 02-27-2023 End: 02-27-2023 Patient encounter procedure Abhishek Huynh MD Work Phone: [facility] Comment on above: Mixed hyperlipidemia (Primary Dx); Mild intermittent asthma without complication; Malignant neoplasm of upper-outer quadrant of right breast in female, estrogen receptor positive (HCC); GERD without esophagitis; PVC (premature ventricular contraction); Osteopenia, unspecified location; Elevated blood pressure reading without diagnosis of hypertension Start: 01-24-2023 End: 01-24-2023 Patient encounter procedure Felicitas Gonzales OD Work Phone: Ophthalmology Comment on above: 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); Dry eye syndrome of bilateral lacrimal glands; Meibomian gland dysfunction (MGD) of upper and lower lids of both eyes; Macular hole, bilateral; Regular astigmatism of both eyes Start: 01-23-2023 End: 01-23-2023 Patient encounter procedure Aileen Albright APRN.PLASTERING SUPERVISOR Work Phone: OB/Gynecology Comment on above: Rectocele (Primary D x); Cystocele, midline; Urethral caruncle Start: 12-26-2022 Telephone encounter Jailene Butler MD Work Phone: OB/Gynecology Comment on above: Orders Start: 11-29-2022 Telephone encounter Radha garzon APRN.PLASTERING SUPERVISOR Work Phone: Hematology/Oncology Comment on above: Patient Question Start: 11-28-2022 End: 11-28-2022 ambulatory Radha Her APRN.PLASTERING SUPERVISOR Work Phone: Hematology/Oncology Comment on above: Malignant neoplasm o f upper-outer quadrant of right breast in female, estrogen receptor positive (HCC) (Primary Dx) Start: 11-28-2022 End: 11-28-2022 Patient encounter procedure Radha Her APRN.CNP Work Phone: [facility] Start: 11-23-2022 Telephone encounter Glo Kyle loza FUR FINISHER.PLASTERING SUPERVISOR Work Phone: [facility] Comment on above: Results (Xray ) Start: 11-19-2022 End: 11-19-2022 Subsequent hospital visit by physician Xr [facility] [place] Work Phone: Radiology Comment on above: Neck pain [M54.2] Start: 11-19-2022 End: 11-19-2022 Office outpatient visit 15 minutes Ivette Diaz FUR FINISHER.PLASTERING SUPERVISOR Work Phone: [facility] Comment on above: Neck pain (Primary D x) Start: 10-21-2022 Telephone encounter Leonor santoyo PA-C Work Phone: [facility] Comment on above: Results Start: 10-20-2022 End: 10-20-2022 Patient encounter procedure Rosalba Blanca PA-C Work Phone: [facility] Comment on above: Viral URI with cough (Primary Dx); Exposure to the flu; PND (post-nasal drip) Start: 09-21-2022 End: 09-21-2022 Patient encounter procedure Vibha Rosa MD Work Phone: OB/Gynecology Comment on above: Encounter for gyneco logical examination (general) (routine) without abnormal findings (Primary Dx); Encounter for screening mammogram for breast cancer Acute left ankle yovanny n (Primary Dx) Start: 09-21-2022 End: 09-21-2022 Patient encounter status Vibha Rosa MD Work Phone: OB/Gynecology Start: 08-31-2022 Orders Only Carlton Verde MD Work Phone: Cardiology Comment on above: PVC (premature ventr icular contraction) (Primary Dx); Elevated blood pressure reading without diagnosis of hypertension; Abnormal stress test; Heart disease, unspecified Start: 08-16-2022 Documentation procedure Mammog ana Coordinator [facility] Start: 08-16-2022 Letter encounter Mammography Coordinator [facility] Department Start: 08-16-2022 End: 08-16-2022 Subsequent hospital visit by physician Screen Mammo [facility] Mammogram Comment on above: Encounter for screen ing mammogram for breast cancer [Z12.31] Start: 06-13-2022 Telephone encounter Radha garzon APRN.PLASTERING SUPERVISOR Work Phone: Hematology/Oncology Comment on above: Appointment Start: 05-14-2022 End: 05-14-2022 Office outpatient visit 15 minutes Ivette Diaz APRN.PLASTERING SUPERVISOR Work Phone: [facility] [place] Comment on above: Acute non-recurrent maxillary sinusitis (Primary Dx) Start: 04-27-2022 Telephone encounter Abhishek Huynh MD Work Phone: [facility] Comment on above: Patient Update; Chantell ent Question Start: 02-01-2022 End: 02-01-2022 Patient encounter procedure Esthela Waller PA-C Work Phone: [facility] Comment on above: GERD without esophag itis (Primary Dx); Situational anxiety; ZIA (generalized anxiety disorder); Hyperglycemia; Primary osteoarthritis of left knee; Effusion, left knee Start: 01-29-2022 End: 01-29-2022 ambulatory Radha Her APRN.PLASTERING SUPERVISOR Work Phone: Hematology/Oncology Comment on above: Malignant neoplasm o f upper-outer quadrant of right breast in female, estrogen receptor positive (HCC) (Primary Dx) Start: 01-29-2022 End: 01-29-2022 Patient encounter procedure Radha Her APRN.PLASTERING SUPERVISOR Work Phone: [facility] Start: 01-18-2022 End: 01-18-2022 Patient encounter procedure Marialuisa Brown MD Work Phone: Ophthalmology Comment on above: Macular hole, bilate ral (Primary Dx) Start: 12-18-2021 End: 12-18-2021 Subsequent hospital visit by physician Bone Density [facility] Work Phone: Radiology Comment on above: Osteopenia, unspecif ied location [M85.80] Start: 03-28-2021 End: 03-28-2021 Subsequent hospital visit by physician Xr [facility] [place] Work Phone: Radiology Comment on above: Cough [R05] Procedures Date Procedure Procedure Detail Performing Clinician Start: 04-26-2025 Urnls dip stick/tabl et rgnt auto w/o microscopy Nikole Bailey MD Work Phone: Start: 03-02-2025 Computerized ophthal rylie imaging retina Marialuisa Brown MD Work Phone: Start: 02-16-2025 Lipid 1996 panel - S joe or Plasma Xavier Tyler RN Work Phone: Start: 01-14-2025 Urnls dip stick/tabl et rgnt auto w/o microscopy Bulk Order Provider Start: 01-08-2025 Ct abdomen & pelvis w/o contrst 1/> body re Nikole Bailey MD Work Phone: Start: 01-06-2025 Urnls dip stick/tabl et rgnt auto w/o microscopy Bulk Order Provider Start: 12-22-2024 CT of abdomen and pe lvis without contrast Dr. Abhishek Huynh MD Work Phone: Start: 08-20-2024 Screening mammograph y bi 2-view breast inc cad Radha Her FUR FINISHER.PLASTERING SUPERVISOR Work Phone: Start: 06-15-2024 Adult depression scr eening assessment Abhishek Huynh MD Work Phone: Start: 04-06-2024 End: 04-06-2024 Excision lesion cornea xcp pterygium Christopher Kwame ANTHONY Work Phone: Start: 03-27-2024 Computerized corneal topography uni/bi Christopher Kwame ANTHONY Work Phone: Start: 02-27-2024 Computerized ophthal rylie imaging retina Marialuisa Brown MD Work Phone: Start: 05-31-2023 Urnls dip stick/tabl et rgnt auto w/o microscopy Gabriela Concepcion MD Work Phone: Start: 04-09-2023 Lipid 1996 panel - S joe or Plasma Screen Wstr Start: 11-19-2022 Radex spine cervical 4 or 5 views Ivette Diaz FUR FINISHER.PLASTERING SUPERVISOR Work Phone: Start: 08-16-2022 End: 08-16-2022 Mammography Vibha Rosa MD Work Phone: Start: 01-28-2022 Adult depression scr eening assessment Radha Her FUR FINISHER.PLASTERING SUPERVISOR Work Phone: Start: 01-18-2022 Computerized ophthal rylie imaging retina Marialuisa Brown MD Work Phone: Start: 12-18-2021 Dxa bone density emanuel dy 1/> sites axial skel Vibha Rosa MD Work Phone: Start: 08-08-2021 Mammography [facility] Work Phone: Start: 08-06-2021 Adult depression scr eening assessment [facility] Work Phone: Start: 03-28-2021 Radiologic exam ches t 2 views Leonor Jerome PA-C Work Phone: Start: 01-04-2017 Colonoscopy [facility] Work Phone: Plan of Treatment Date Care Activity Detail Author Start: 02-19-2034 Urine microalbumin profile DTaP,Tdap,Td Vaccine (3 - Td or Tdap) [facility] Start: 02-16-2030 Lipid panel Lipid Screening [facility] Start: 04-09-2028 Lipid 1996 panel - Serum or Plasma Lipid Screening [facility] Start: 04-09-2028 Lipid panel Lipid Screening [facility] Start: 04-09-2028 LIPID SCREEN LIPID SCREEN [facility] Start: 02-20-2028 LIPID SCREEN LIPID SCREEN [facility] Start: 02-17-2028 Diabetes Screening Diabetes Screening [facility] Start: 01-08-2028 Diabetes Screening Diabetes Screening [facility] Start: 09-07-2027 LIPID SCREEN LIPID SCREEN [facility] Start: 01-04-2027 Colonoscopy COLONOSCOPY [facility] Start: 01-04-2027 COLORECTAL CANCER SCREENING COLORECTAL CANCER SCREENING [facility] Start: 01-04-2027 Screening for malignant neoplasm of colon [facility] Start: 09-03-2026 Diabetes Screening Diabetes Screening [facility] Start: 05-06-2026 End: 05-06-2026 Patient encounter procedure 05/06/2026 12:45 PM EDT Office Visit [facility] Ophthalmology [address] [place] [address] Felicitas Gonzales, OD [address] [place] [address] Diagnostics[facility] [address] [address] complete eye exam. Ophthalmology Comment on above: complete eye exam. Start: 03-02-2026 End: 06-01-2026 Lipid 1996 panel - Serum or Plasma LIPID PANEL, FASTING Lab Routine PVC (premature ventricular contraction) Hypercholesteremia Expected: 03/02/2026, Expires: 06/01/2026 [facility] Comment on above: Expected: 03/02/2026, Expires: Start: 02-19-2026 DIABETES SCREEN DIABETES SCREEN [facility] Start: 02-19-2026 Diabetes Screening Diabetes Screening [facility] Start: 09-07-2025 DIABETES SCREEN DIABETES SCREEN [facility] Start: 08-30-2025 End: 08-30-2025 ambulatory 08/30/2025 10:00 AM EST Visit (SP) Office Hematology/Oncology [address] [place] [address] Radha Her APRN.PLASTERING SUPERVISOR [address] [place] [address] 6 MTH OV/GERARDO 08/23* Hematology/Oncology Comment on above: 6 MTH OV/GERARDO 08/23* Start: 08-23-2025 End: 08-23-2025 Patient encounter procedure 08/23/2025 9:10 AM EST Appointment Mammogram [address] [place] [address] MAMMO W PABLO Mammogram Comment on above: MAMMO W PABLO Start: 08-20-2025 Screening for malignant neoplasm of breast Mammogram Screening [facility] Start: 07-26-2025 End: 07-26-2025 Patient encounter procedure 07/26/2025 10:30 AM EDT Office Visit Urology [address] [address] Nikole Bailey MD [address] [place] [address] 3 month cysto per cc chart Urology Comment on above: 3 month cysto per cc chart Start: 07-15-2025 End: 07-15-2025 Patient encounter procedure 07/15/2025 11:00 AM EDT Office Visit Urology [address] [address] Instillation, Nurse Urol Bladder [address] [address] Maint Gemzar 3 of 3 per cc chart Urology Comment on above: Maint Gemzar 3 of 3 per cc chart Start: 07-02-2025 End: 07-02-2025 Patient encounter procedure 07/02/2025 9:40 AM EDT Office Visit [facility] [place] [address] [place] [address] Abhishek Huynh MD [address] [place], [place] [id number] medicare exam [facility] Comment on above: medicare exam Start: 07-01-2025 Annual PCP Team Chronic Disease Visit Annual PCP Team Chronic Disease Visit [facility] Start: 06-23-2025 LIPID SCREEN LIPID SCREEN [facility] Start: 06-15-2025 Annual PCP Team Chronic Disease Visit Annual PCP Team Chronic Disease Visit [facility] Start: 06-15-2025 Anxiety Screening Anxiety Screening [facility] Start: 06-15-2025 Covid-19 Vaccine () Covid-19 Vaccine () [facility] Comment on above: Postponed from 05/31/2024 (Declined at t his time) Start: 06-15-2025 Covid-19 Vaccine () Covid-19 Vaccine () [facility] Comment on above: Postponed from 05/31/2024 (Declined at t his time) Start: 06-15-2025 Depression Screening Depression Screening [facility] Start: 06-15-2025 End: 06-15-2025 Patient encounter procedure 06/15/2025 1:00 PM EDT Office Visit Urology [address] [address] Urol, Nurse [place] [id number] [place] [address] Maint Gemzar 2 of 3 per cc chart Urology Comment on above: Maint Gemzar 2 of 3 per cc chart Start: 05-31-2025 Influenza vaccination Influenza Vaccine (#1) [facility] Start: 05-06-2025 End: 05-06-2025 Patient encounter procedure 05/06/2025 9:45 AM EDT Office Visit [facility] Ophthalmology [address] [place] [address] Felicitas Gonzales, OD [address] [place] [address] 1 yr for complete eye exam Ophthalmology Comment on above: 1 yr for complete eye exam Start: 04-26-2025 End: 04-26-2025 Patient encounter procedure 04/26/2025 11:00 AM EDT Office Visit Urology [address] [address] Nikole Bailey MD [address] [place] [address] Cystoscopy per staff msg Urology Comment on above: Cystoscopy per staff msg Start: 03-29-2025 Influenza vaccination Influenza Vaccine (#1) [facility] Comment on above: Postponed from 05/31/2024 (Declined at t his time) Start: 03-19-2025 End: 03-19-2025 Patient encounter procedure 03/19/2025 10:00 AM EDT Office Visit Urology [address] [address] Instillation, Nurse Urol Bladder [address] [place] [address] Induction BCG per staff [facility] Urology Comment on above: Induction BCG per staff [facility] Start: 03-12-2025 End: 03-12-2025 Patient encounter procedure 03/12/2025 10:00 AM EDT Office Visit Urology [address] [address] Instillation, Nurse Urol Bladder [address] [address] Induction BCG per staff [facility] Urology Comment on above: Induction BCG per staff [facility] Start: 03-09-2025 Annual PCP Team Chronic Disease Visit Annual PCP Team Chronic Disease Visit [facility] Start: 03-05-2025 End: 03-05-2025 Patient encounter procedure 03/05/2025 10:00 AM EDT Office Visit Urology [address] [address] Instillation, Nurse Urol Bladder [address] [address] Induction BCG per staff [facility] Urology Comment on above: Induction BCG per staff [facility] Start: 03-03-2025 End: 06-02-2025 Lipid 1996 panel - Serum or Plasma LIPID PANEL BASIC Lab Routine Elevated blood pressure reading without diagnosis of hypertension Moderate mixed hyperlipidemia not requiring statin therapy Expected: 03/03/2025 (Approximate), Expires: 06/02/2025 [facility] Work Phone: Comment on above: Expected: 03/03/2025 (Approximate), Expi res: 06/02/2025 Start: 03-02-2025 End: 03-02-2025 Patient encounter procedure Cardiology Comment on above: Dx: Elevated blood pressure reading with out diagnosis of hypertension; Hyperlipidemia, unspecified hyperlipidemia type; H/O hypercholesterolemia Macular hole annual Start: 02-26-2025 End: 02-26-2025 Patient encounter procedure 02/26/2025 8:00 AM EDT Office Visit Urology [address] [address] Instillation, Nurse Urol Bladder [address] [address] Induction BCG per staff msg Urology Comment on above: Induction BCG per staff msg Start: 02-23-2025 End: 02-23-2026 Bacteria identified in Urine by Culture [facility] Comment on above: Expected: 02/23/2025 (Approximate), Expi res: 02/23/2026 Start: 02-23-2025 End: 02-23-2026 Urinalysis complete panel - Urine [facility] Work Phone: Comment on above: Expected: 02/23/2025 (Approximate), Expi res: 02/23/2026 Start: 02-18-2025 End: 02-18-2025 Patient encounter procedure 02/18/2025 9:00 AM EDT Office Visit Urology [address] [address] Instillation, Nurse Urol Bladder [address] [address] Induction BCG per staff msg Urology Comment on above: Induction BCG per staff msg Start: 02-16-2025 End: 02-16-2025 ambulatory 02/16/2025 9:30 AM EDT Results Only [facility] [address] [place] [address] Labs- Lipid panel and CMP [facility] Comment on above: Labs- Lipid panel and CMP Start: 02-12-2025 End: 02-12-2025 ambulatory 02/12/2025 9:30 AM EDT Visit (SP) Office Hematology/Oncology [address] [place] [address] Radha Her, NARDA.PLASTERING SUPERVISOR [address] [place] [address] 6 MO OV* Hematology/Oncology Comment on above: 6 MO OV* Start: 02-09-2025 End: 02-09-2025 Patient encounter procedure 02/09/2025 9:00 AM EDT Office Visit Urology [address] [address] Urol, Nurse [facility] [address] [place] [address] Induction BCG per staff msg Urology Comment on above: Induction BCG per staff [facility] Start: 02-05-2025 End: 01-06-2026 aPTT in Platelet poor plasma by Coagulation assay ACTIVATED PARTIAL THROMBOPLASTIN TIME Lab Routine Neoplasm of bladder Bladder disorders in diseases classified elsewhere Expected: 02/05/2025 (Approximate), Expires: 01/06/2026 [facility] Comment on above: Expected: 02/05/2025 (Approximate), Expi res: 01/06/2026 Start: 02-05-2025 End: 05-07-2025 Bacteria identified in Urine by Culture BACTERIAL CULTURE, URINE Microbiology Routine Neoplasm of bladder Bladder disorders in diseases classified elsewhere Symptom involving bladder Expected: 02/05/2025 (Approximate), Expires: 05/07/2025 [facility] Comment on above: Expected: 02/05/2025 (Approximate), Expi res: 05/07/2025 Start: 02-05-2025 End: 01-06-2026 CBC panel - Blood by Automated count COMPLETE BLOOD COUNT Lab Routine Neoplasm of bladder Expected: 02/05/2025 (Approximate), Expires: 01/06/2026 [facility] Work Phone: Comment on above: Expected: 02/05/2025 (Approximate), Expi res: 01/06/2026 Start: 02-05-2025 End: 01-06-2026 Comprehensive metabolic 2000 panel - Serum or Plasma COMPREHENSIVE METABOLIC PANEL Lab Routine Neoplasm of bladder Expected: 02/05/2025 (Approximate), Expires: 01/06/2026 [facility] Comment on above: Expected: 02/05/2025 (Approximate), Expi res: 01/06/2026 Start: 02-05-2025 End: 01-06-2026 PT panel - Platelet poor plasma by Coagulation assay PROTHROMBIN TIME Lab Routine Neoplasm of bladder Expected: 02/05/2025 (Approximate), Expires: 01/06/2026 [facility] Comment on above: Expected: 02/05/2025 (Approximate), Expi res: 01/06/2026 Start: 02-05-2025 End: 01-06-2026 Urinalysis complete panel - Urine URINALYSIS, WITH MICROSCOPIC Lab Routine Neoplasm of bladder Expected: 02/05/2025 (Approximate), Expires: 01/06/2026 [facility] Comment on above: Expected: 02/05/2025 (Approximate), Expi res: 01/06/2026 Start: 02-02-2025 End: 02-02-2025 ambulatory 02/02/2025 9:00 AM EDT Results Only Say [facility] Draw Station [address] [facility] [place] [address] Labs- Lipid panel and CMP [facility] Comment on above: Labs- Lipid panel and CMP Start: 01-29-2025 End: 04-30-2025 Bacteria identified in Urine by Culture [facility] Work Phone: Comment on above: Expected: 01/29/2025 (Approximate), Expi res: 04/30/2025 Start: 01-27-2025 End: 01-27-2025 Patient encounter procedure 01/27/2025 10:30 AM EDT Office Visit Urology [address] [address] Nikole Bailey MD [address] [place], [place] [id number] POST OP 7-14 DAYS PER CUREFORM Urology Comment on above: POST OP 7-14 DAYS PER CUREFORM Start: 01-14-2025 End: 01-14-2025 Admission to same day surgery center 01/14/2025 3:48 PM EDT - 01/14/2025 5:37 PM EDT Surgery Admitting [address] [place] [address] Nikole Bailey MD [address] [place] [address] RESECTION BLADDER TUMOR TRANSURETHRAL Admitting Comment on above: RESECTION BLADDER TUMOR TRANSURETHRAL Start: 01-14-2025 End: 01-14-2025 Cystourethroscopy w/dest &/rmvl med bladder lee RESECTION BLADDER TUMOR TRANSURETHRAL Neoplasm of bladder 01/14/2025 3:48 PM EDT [facility] Start: 01-14-2025 End: 01-14-2025 Admission to same day surgery center 01/14/2025 1:30 PM EDT - 01/14/2025 3:19 PM EDT Surgery Admitting [address] [place] [address] Nikole Bailey MD [address] [place] [address] RESECTION BLADDER TUMOR TRANSURETHRAL Admitting Comment on above: RESECTION BLADDER TUMOR TRANSURETHRAL Start: 01-14-2025 End: 01-14-2025 Cystourethroscopy w/dest &/rmvl med bladder lee [facility] Start: 01-14-2025 Subsequent hospital visit by physician Admitting Comment on above: Neoplasm of bladder [D49.4] Start: 01-14-2025 End: 01-14-2025 ambulatory 01/14/2025 12:15 PM EDT Results Only [place] [address] Draw Station [address] [place] [address] PRE OP FASCELLI ~ 04/15 [place] [address] Draw Station Comment on above: PRE OP FASCELLI ~ 04/15 Start: 01-14-2025 End: 01-14-2025 Patient encounter procedure 01/14/2025 11:30 AM EDT Office Visit Urology [address] [address] Alejandro Marquis PA [address] [address] PRE OP H&P Urology Comment on above: PRE OP H&P Start: 01-08-2025 End: 01-08-2025 Patient encounter procedure 01/08/2025 10:00 AM EDT Appointment [facility] [address] [place] [id number] Screening for genitourinary condition [Z13.89] [facility] Comment on above: Screening for genitourinary condition [Z 13.89] Start: 01-01-2025 End: 01-01-2025 ambulatory 01/01/2025 10:00 AM EDT Results Only Say [facility] Draw Station [address] [place] [address] [place] [facility] Draw Station Start: 12-31-2024 Covid-19 Vaccine (8 - Moderna risk season) Covid-19 Vaccine (8 - Moderna risk ) [facility] Start: 12-31-2024 Covid-19 Vaccine () Covid-19 Vaccine ( - ) [facility] Start: 12-30-2024 End: 03-31-2025 Comprehensive metabolic 2000 panel - Serum or Plasma COMPREHENSIVE METABOLIC PANEL Lab Routine Mixed hyperlipidemia Expected: 12/30/2024, Expires: 03/31/2025 [facility] Work Phone: Comment on above: Expected: 12/30/2024, Expires: Start: 12-30-2024 End: 03-31-2025 Lipid 1996 panel - Serum or Plasma LIPID PANEL BASIC Lab Routine Mixed hyperlipidemia Expected: 12/30/2024, Expires: 03/31/2025 [facility] Comment on above: Expected: 12/30/2024, Expires: Start: 12-28-2024 [facility] Start: 12-28-2024 Bacteria identified in Urine by Culture Urine Culture [facility] Start: 12-22-2024 Annual PCP Team Chronic Disease Visit Annual PCP Team Chronic Disease Visit [facility] Start: 12-22-2024 [facility] Start: 12-04-2024 End: 12-04-2024 Patient encounter procedure 12/04/2024 10:00 AM EST Office Visit [facility] Ophthalmology [address] [place] [address] Felicitas Gonzales, OD [address] [place] [address] 1 yr for complete eye exam Ophthalmology Comment on above: 1 yr for complete eye exam Start: 10-30-2024 Annual PCP Team Chronic Disease Visit Annual PCP Team Chronic Disease Visit [facility] Start: 10-09-2024 End: 10-09-2024 Patient encounter procedure 10/09/2024 9:00 AM EST Office Visit OB/Gynecology [address] [place] [address] Vibha Rosa MD [address] [place] [address] 2 Yr Annual exam OB/Gynecology Comment on above: 2 Yr Annual exam Start: 10-08-2024 End: 10-08-2024 Patient encounter procedure 10/08/2024 8:40 AM EST Office Visit OB/Gynecology [address] [place] [address] Vibha Rosa MD [address] [place] [address] 2 Yr Annual exam OB/Gynecology Comment on above: 2 Yr Annual exam Start: 09-30-2024 Advance Directive Discussion Advance Directive Discussion [facility] Start: 09-21-2024 End: 09-21-2024 Patient encounter procedure 09/21/2024 9:00 AM EST Office Visit OB/Gynecology [address] [place] [address] Vibha Rosa MD [address] [place] [address] 2 Yr Annual exam OB/Gynecology Comment on above: 2 Yr Annual exam Start: 09-16-2024 End: 09-16-2024 Follow-up encounter 09/16/2024 8:45 AM EST OT/PT/Speech Visit [facility] [address] [place] [address] Farzana Hidalgo PT Z08,Z85.3 (ICD-10-CM) - Encounter for follow-up surveillance of breast cancer [facility] Comment on above: Z08,Z85.3 (ICD-10-CM) - Encounter for fo llow-up surveillance of breast cancer Start: 09-03-2024 Annual PCP Team Chronic Disease Visit Annual PCP Team Chronic Disease Visit [facility] Start: 08-21-2024 End: 08-21-2024 ambulatory 08/21/2024 9:30 AM EST Visit (SP) Office Hematology/Oncology [address] [place] [address] Radha Her APRN.PLASTERING SUPERVISOR [address] [place] [address] 6 mo OV Hematology/Oncology Comment on above: 6 mo OV Start: 08-20-2024 End: 08-20-2024 Patient encounter procedure 08/20/2024 9:30 AM EST Appointment Mammogram [address] [place] [address] GERARDO SCREENING Mammogram Comment on above: GERARDO SCREENING Start: 08-19-2024 Mammography Mammogram Screening [facility] Start: 08-19-2024 Screening for malignant neoplasm of breast Mammogram Screening [facility] Start: 08-17-2024 End: 08-17-2024 Follow-up encounter 08/17/2024 1:00 PM EST [facility] [address] [place] [address] Farzana Hidalgo PT Encounter for follow-up surveillance of breast cancer [Z08, Z85.3] [facility] Comment on above: Encounter for follow-up surveillance of breast cancer [Z08, Z85.3] Start: 07-01-2024 End: 07-01-2024 Patient encounter procedure 07/01/2024 10:00 AM EDT Office Visit [facility] [address] [place] [address] Abhishek Huynh MD [address] [place] [address] 6 mo f/u [facility] Comment on above: 6 mo f/u Start: 06-25-2024 End: 06-25-2024 ambulatory 06/25/2024 10:00 AM EDT Results Only Say [facility] Draw Station [address] [place] [address] [facility] Start: 06-15-2024 End: 09-14-2024 CBC W Auto Differential panel - Blood COMPLETE BLOOD COUNT AND DIFFERENTIAL Lab Routine Leukopenia, unspecified type Expected: 06/15/2024, Expires: 09/14/2024 [facility] Work Phone: Comment on above: Expected: 06/15/2024, Expires: Start: 05-31-2024 Influenza vaccination Influenza Vaccine (#1) [facility] Start: 05-24-2024 ANNUAL PCP TEAM CHRONIC DISEASE VISIT ANNUAL PCP TEAM CHRONIC DISEASE VISIT [facility] Start: 05-24-2024 COVID-19 VACCINE (6 - Moderna series) COVID-19 VACCINE (6 - Moderna series) [facility] Comment on above: Postponed from 11/28/2022 (Declined at t his time) Start: 05-24-2024 Urine microalbumin profile [facility] Comment on above: Postponed from 06/23/2020 (Declined at t his time) Start: 05-04-2024 End: 05-04-2024 Patient encounter procedure 05/04/2024 12:30 PM EDT Office Visit [facility] Ophthalmology [address] [place], [place] [id number] Felicitas Gonzales, OD [address] [place] [address] Post OP Ophthalmology Comment on above: Post OP Start: 04-13-2024 End: 04-13-2024 Patient encounter procedure 04/13/2024 2:15 PM EDT Office Visit [facility] Ophthalmology [address] [place] [address] Christopher Puente MD [address] [place] [address] [place], sup K both eyes, then 2nd appt 1 week later Ophthalmology Comment on above: [place], sup K both eyes, then 2nd appt 1 week later Start: 04-06-2024 End: 04-06-2024 Patient encounter procedure 04/06/2024 1:45 PM EDT Office Visit [facility] Ophthalmology [address] [place] [address] Christopher Puente MD [address] [place] [address] [place], sup K both eyes, then 2nd appt 1 week later Ophthalmology Comment on above: [place], sup K both eyes, then 2nd appt 1 week later Start: 04-01-2024 End: 04-01-2024 Patient encounter procedure 04/01/2024 3:00 PM EDT Office Visit [facility] [address] [place] [address] Estrada Reddy V, DO [address] [place], [place] [id number] right leg from knee to ankle in front hurts to walk in morning [facility] [place] Comment on above: right leg from knee to ankle in front hu rts to walk in morning Start: 03-27-2024 End: 03-27-2024 Patient encounter procedure 03/27/2024 10:30 AM EDT Office Visit [facility] Ophthalmology [address] [address] Christopher Puente MD [address] [place] [address] Kwame Back's 1-3 months. Ophthalmology Comment on above: See Dr. Kwame Back's 1-3 months. Start: 02-28-2024 ANNUAL PCP TEAM CHRONIC DISEASE VISIT ANNUAL PCP TEAM CHRONIC DISEASE VISIT [facility] Start: 02-27-2024 End: 02-27-2024 Patient encounter procedure 02/27/2024 9:45 AM EDT Office Visit [facility] Ophthalmology [address] [address] Marialuisa Brown MD [address] [facility] [address] [place] [address] Return in 1 year Ophthalmology Comment on above: Return in 1 year Start: 02-18-2024 End: 02-18-2024 ambulatory 02/18/2024 9:30 AM EDT Visit (SP) Office Hematology/Oncology [address] [place] [address] Radha Her APRN.PLASTERING SUPERVISOR [address] [place] [address] 6 MO OV* Hematology/Oncology Comment on above: 6 MO OV* Start: 11-28-2023 Covid-19 Vaccine () Covid-19 Vaccine () [facility] Start: 11-19-2023 ANNUAL PCP TEAM CHRONIC DISEASE VISIT ANNUAL PCP TEAM CHRONIC DISEASE VISIT [facility] Start: 10-17-2023 DIABETES SCREEN DIABETES SCREEN [facility] Start: 09-30-2023 Advance Directive Discussion Advance Directive Discussion [facility] Start: 09-30-2023 Behavioral Health Screening Behavioral Health Screening [facility] Start: 09-30-2023 Depression Assessment Depression Assessment [facility] Start: 09-04-2023 ANNUAL PCP TEAM CHRONIC DISEASE VISIT ANNUAL PCP TEAM CHRONIC DISEASE VISIT [facility] Start: 09-03-2023 End: 12-03-2023 Cobalamin (Vitamin B12) [Mass/volume] in Serum or Plasma [facility] Work Phone: Comment on above: Expected: 09/03/2023, Expires: Start: 09-03-2023 End: 12-03-2023 Comprehensive metabolic 2000 panel - Serum or Plasma [facility] Work Phone: Comment on above: Expected: 09/03/2023, Expires: 4 Start: 09-03-2023 End: 12-03-2023 Folate [Mass/volume] in Serum or Plasma [facility] Work Phone: Comment on above: Expected: 09/03/2023, Expires: Start: 09-03-2023 End: 12-03-2023 PROTEIN ELECTROPHORESIS SERUM W/INTERP [facility] Work Phone: Comment on above: Expected: 09/03/2023, Expires: 4 Start: 09-03-2023 End: 12-03-2023 Thyrotropin [Units/volume] in Serum or Plasma [facility] Work Phone: Comment on above: Expected: 09/03/2023, Expires: 4 Start: 08-16-2023 Mammography [facility] Start: 05-31-2023 Covid-19 Vaccine () Covid-19 Vaccine () [facility] Start: 05-31-2023 Influenza vaccination [facility] Start: 05-14-2023 ANNUAL PCP TEAM CHRONIC DISEASE VISIT ANNUAL PCP TEAM CHRONIC DISEASE VISIT [facility] Start: 04-10-2023 End: 06-10-2023 Hepatic function 2000 panel - Serum or Plasma HEPATIC FUNCTION PNL Lab Routine Mixed hyperlipidemia Expected: 04/10/2023, Expires: 06/10/2023 [facility] Work Phone: Comment on above: Expected: 04/10/2023, Expires: 3 Start: 04-10-2023 End: 06-10-2023 Lipid 1996 panel - Serum or Plasma LIPID PANEL BASIC Lab Routine Mixed hyperlipidemia Expected: 04/10/2023, Expires: 06/10/2023 [facility] Work Phone: Comment on above: Expected: 04/10/2023, Expires: 3 Start: 02-27-2023 End: 04-29-2023 Lipid 1996 panel - Serum or Plasma LIPID PANEL BASIC Lab Routine PVC (premature ventricular contraction) Elevated blood pressure reading without diagnosis of hypertension Abnormal stress test Heart disease, unspecified Expected: 02/27/2023, Expires: 04/29/2023 [facility] Work Phone: Comment on above: Expected: 02/27/2023, Expires: 3 Start: 02-01-2023 ANNUAL PCP TEAM CHRONIC DISEASE VISIT ANNUAL PCP TEAM CHRONIC DISEASE VISIT [facility] Start: 01-28-2023 Adult depression screening assessment DEPRESSION SCREENING [facility] Start: 11-28-2022 COVID-19 VACCINE (6 - Moderna series) COVID-19 VACCINE (6 - Moderna series) [facility] Start: 10-20-2022 End: 11-03-2022 Influenza virus A and B RNA and SARS-CoV-2 (COVID-19) N gene panel - Respiratory specimen by ADELE with probe detection COVID WITH FLUA+B, ROUTINE Microbiology Routine Exposure to the flu Viral URI with cough Expected: 10/20/2022, Expires: 11/03/2022 [facility] Work Phone: Comment on above: Expected: 10/20/2022, Expires: 3 Start: 09-30-2022 ADVANCE DIRECTIVE DISCUSSION ADVANCE DIRECTIVE DISCUSSION [facility] Start: 09-30-2022 DEPRESSION ASSESSMENT DEPRESSION ASSESSMENT [facility] Start: 08-08-2022 Mammography MAMMOGRAM [facility] Start: 08-06-2022 Adult depression screening assessment DEPRESSION SCREENING [facility] Start: 05-31-2022 Influenza vaccination INFLUENZA (#1) [facility] Start: 04-26-2022 ANNUAL PCP TEAM CHRONIC DISEASE VISIT ANNUAL PCP TEAM CHRONIC DISEASE VISIT [facility] Start: 02-01-2022 End: 04-03-2022 CBC panel - Blood by Automated count CBC Lab Routine Situational anxiety ZIA (generalized anxiety disorder) Hyperglycemia Expected: 02/01/2022, Expires: 04/03/2022 [facility] Work Phone: Comment on above: Expected: 02/01/2022, Expires: 2 Start: 02-01-2022 End: 04-03-2022 Comprehensive metabolic 2000 panel - Serum or Plasma COMP METABOLIC PANEL Lab Routine Situational anxiety ZIA (generalized anxiety disorder) Hyperglycemia Expected: 02/01/2022, Expires: 04/03/2022 [facility] Work Phone: Comment on above: Expected: 02/01/2022, Expires: 2 Start: 09-30-2021 ADVANCE DIRECTIVE DISCUSSION ADVANCE DIRECTIVE DISCUSSION [facility] Start: 09-30-2021 DEPRESSION ASSESSMENT DEPRESSION ASSESSMENT [facility] Start: 06-23-2020 Urine microalbumin profile DTAP,TDAP,TD (2 - Td or Tdap) [facility] Start: 08-28-2018 Screening for malignant neoplasm of cervix Cervical Cancer Screening [facility] Start: 12-29-2016 Medicare Annual Wellness Visit Medicare Annual Wellness Visit [facility] Start: 2012 RSV Vaccine (1 - 1-dose 60+ series) RSV Vaccine (1 - 1-dose 60+ series) [facility] Start: 01-15-1997 COLOGUARD (FIT-DNA) COLOGUARD (FIT-DNA) [facility] Start: 01-15-[address] COLONOGRAPHY [facility] Start: 01-15-1997 FECAL OCCULT BLOOD FECAL OCCULT BLOOD [facility] Start: 01-15-1997 Screening for malignant neoplasm of colon [facility] Start: 01-15-1997 SIGMOIDOSCOPY SIGMOIDOSCOPY [facility] Start: 01-15-1970 Anxiety Screening Anxiety Screening [facility] Start: 01-15-1970 Depression Screening Depression Screening [facility] Start: 01-15-1970 SPIROMETRY SPIROMETRY [facility] End: 01-21-2025 BD DXA TRABECULAR BONE SCORE (TBS) BD DXA TRABECULAR BONE SCORE (TBS) Radiology Routine Osteopenia, unspecified location Encounter for screening for osteoporosis 1 Occurrences starting 12/23/2023 until 01/21/2025 [facility] Work Phone: Comment on above: 1 Occurrences starting 12/23/2023 until 01/21/2025 BD DXA TRABECULAR SUKHI NE SCORE (TBS) BD DXA TRABECULAR BONE SCORE (TBS) Radiology Routine Osteopenia, unspecified location Encounter for screening for osteoporosis 01/23/2024 11:27 AM EDT [facility] End: 02-05-2026 CT Kidney WO and W contrast IV CT UROGRAM WO/W IVCON Radiology STAT Screening for genitourinary condition 1 Occurrences starting 01/06/2025 until 02/05/2026 [facility] Work Phone: Comment on above: 1 Occurrences starting 01/06/2025 until 02/05/2026 Cystourethroscopy w/ dest &/rmvl med bladder lee RESECTION BLADDER TUMOR TRANSURETHRAL Neoplasm of bladder [facility] CYTOLOGY NON-MAMMALOGY TEACHER CYTOLOGY NON-GY N Lab Routine Screening for genitourinary condition 01/07/2025 7:25 AM EDT [facility] CYTOLOGY NON-MAMMALOGY TEACHER CYTOLOGY NON-GY N Lab Routine History of bladder cancer 04/26/2025 11:10 AM EDT [facility] End: 03-14-2026 DBT Breast - bilateral screening GERARDO SCREENING W PABLO Radiology Routine Malignant neoplasm of upper-outer quadrant of right breast in female, estrogen receptor positive (HCC) Encounter for screening mammogram for high-risk patient 1 Occurrences starting 02/12/2025 until 03/14/2026 [facility] Work Phone: Comment on above: 1 Occurrences starting 02/12/2025 until 03/14/2026 End: 01-21-2025 DXA Skeletal system.axial Views for bone density DXA-AXIAL SKELETON Radiology Routine Osteopenia, unspecified location Encounter for screening for osteoporosis Asymptomatic menopausal state 1 Occurrences starting 12/23/2023 until 01/21/2025 [facility] Work Phone: Comment on above: 1 Occurrences starting 12/23/2023 until 01/21/2025 DXA Skeletal system. axial Views for bone density DXA-AXIAL SKELETON Radiology Routine Osteopenia, unspecified location Encounter for screening for osteoporosis Asymptomatic menopausal state 01/23/2024 11:27 AM EDT [facility] Work Phone: End: 08-31-2023 ECG COMPLETE ECG COMPLETE ECG Routine PVC (premature ventricular contraction) Elevated blood pressure reading without diagnosis of hypertension Abnormal stress test 1 Occurrences starting 08/31/2022 until 08/31/2023 [facility] Work Phone: Comment on above: 1 Occurrences starting 08/31/2022 until 08/31/2023 End: 03-02-2026 ECG COMPLETE ECG COMPLETE ECG Routine PVC (premature ventricular contraction) 1 Occurrences starting 03/02/2025 until 03/02/2026 [facility] Work Phone: Comment on above: 1 Occurrences starting 03/02/2025 until 03/02/2026 ES CYSTOSCOPY (POC) FOR UROLOGY USE ONLY ES CYSTOSCOPY (POC) FOR UROLOGY USE ONLY Imaging Diagnostic Routine Screening for genitourinary condition Ordered: 04/26/2025 [facility] Work Phone: Comment on above: Ordered: 04/26/2025 End: 10-21-2023 GERARDO SCREENING GERARDO SCREENING Radiology Routine Encounter for screening mammogram for breast cancer 1 Occurrences starting 09/21/2022 until 10/21/2023 [facility] Work Phone: Comment on above: 1 Occurrences starting 09/21/2022 until 10/21/2023 End: 03-19-2025 MG Breast Screening GERARDO SCREENING Radiology Routine Personal history of malignant neoplasm of breast Encounter for screening mammogram for high-risk patient 1 Occurrences starting 02/18/2024 until 03/19/2025 [facility] Work Phone: Comment on above: 1 Occurrences starting 02/18/2024 until 03/19/2025 Patient Education ED Hematuria [facility] Work Phone: Patient referral [facility] Work Phone: PT PLAN OF CARE CERTIFICATION PT PLAN OF CARE CERTIFICATION Procedures Routine Rectocele Cystocele, midline Muscle weakness Ordered: 03/22/2023 [facility] Work Phone: Comment on above: Ordered: 03/22/2023 End: 12-19-2023 Radex spine cervical 4 or 5 views XR CERV OTHER 4V AP/LAT/OBL Radiology Routine Neck pain 1 Occurrences starting 11/19/2022 until 12/19/2023 [facility] Work Phone: Comment on above: 1 Occurrences starting 11/19/2022 until 12/19/2023 Radex spine cervical 4 or 5 views XR CERV OTHER 4V AP/LAT/OBL Radiology Routine Neck pain 11/19/2022 12:08 PM EST [facility] Work Phone: Urine culture [facility] End: 04-25-2025 XR Tibia and Fibula - right AP and Lateral XR TIBIA FIBULA 2V AP/LAT RIGHT Radiology Routine Pain in right ordoñez 1 Occurrences starting 03/26/2024 until 04/25/2025 [facility] Work Phone: Comment on above: 1 Occurrences starting 03/26/2024 until 04/25/2025 XR Tibia and Fibula - right AP and Lateral XR TIBIA FIBULA 2V AP/LAT RIGHT Radiology Routine Pain in right ordoñez 04/01/2024 2:49 PM EDT [facility] Work Phone: [facility] c [facility] c [facility] c [facility] Immunizations Immunization Date Immunization Notes Care Provider Jeronimo mathews 07-09-2024 influenza, high dose seasonal, preservative-free Radha Her FUR FINISHER.PLASTERING SUPERVISOR Work Phone: [facility] 07-09-2024 influenza virus vaccine, unspecified formulation Abhishek Huynh MD Work Phone: [facility] 07-02-2024 COVID-19 vaccine, ag e 12+ yr (MODERNA) Radha Her FUR FINISHER.PLASTERING SUPERVISOR Work Phone: [facility] 08-31-2023 respiratory syncytia l virus (RSV) vaccine, adjuvanted (AREXVY) Abhishek Huynh MD Work Phone: [facility] 08-02-2023 influenza (HD-IIV4) vaccine, age 65+ yr, high dose, quadrivalent, PF (FLUZONE HIGH-DOSE) Abhishek Huynh MD Work Phone: [facility] Work Phone: 08-02-2023 influenza virus vaccine, unspecified formulation Estrada Green DO Work Phone: [facility] 07-28-2023 COVID-19 vaccine, ag e 12+ yr, season (MODERNA) Cheryl Bae RN [facility] 07-31-2022 COVID-19 booster vaccine, age 12+ yr, bivalent (PFIZER-BIONTECH) Mammography Coordinator [facility] 07-31-2022 COVID-19 vaccine, ag e 12+ yr, bivalent (MODERNA) Abhishek Huynh MD Work Phone: [facility] 07-12-2022 influenza, high dose seasonal, preservative-free Mammography Coordinator [facility] 07-12-2022 influenza virus vaccine, unspecified formulation Screen Wstr [facility] 07-09-2021 influenza, high-dose , quadrivalent vaccine (FLUZONE HIGH DOSE QUADRIVALENT) ROSIBEL Waller PA-C Work Phone: [facility] 12-13-2020 COVID-19 vaccine, fu ll dose (MODERNA) Bone Wstr Work Phone: [facility] 11-21-2020 COVID-19 vaccine, fu ll dose (MODERNA) Bone Wstr Work Phone: [facility] 07-21-2020 influenza, high dose seasonal, preservative-free Bone Wstr Work Phone: [facility] 07-21-2020 influenza, high-dose , quadrivalent vaccine (FLUZONE HIGH DOSE QUADRIVALENT) ROSIBEL Waller PA-C Work Phone: [facility] 09-17-2019 zoster vaccine recombinant Bone Wstr Work Phone: [facility] 06-26-2019 Influenza, injectabl e, Madin Radha Canine Kidney, preservative free, quadrivalent Bone Wstr Work Phone: [facility] 04-08-2019 zoster vaccine recombinant Bone Wstr Work Phone: [facility] 06-24-2018 Seasonal trivalent influenza vaccine, adjuvanted, preservative free Bone Wstr Work Phone: [facility] 06-05-2018 pneumococcal polysaccharide vaccine, 23 valent Bone Wstr Work Phone: [facility] 06-09-2017 influenza, injectabl e, quadrivalent, contains preservative Bone Wstr Work Phone: [facility] 06-09-2017 influenza, seasonal, injectable Bone Wstr Work Phone: [facility] 06-09-2017 Seasonal trivalent influenza vaccine, adjuvanted, preservative free Bone Wstr Work Phone: [facility] 03-24-2017 pneumococcal conjuga te vaccine, 13 valent Bone Wstr Work Phone: [facility] 07-27-2016 influenza, seasonal, injectable Bone Wstr Work Phone: [facility] 08-24-2015 influenza, seasonal, injectable, preservative free Bone Wstr Work Phone: [facility] 08-03-2013 pneumococcal polysaccharide vaccine, 23 valent Bone Wstr Work Phone: [facility] 07-24-2013 influenza virus vaccine, unspecified formulation Bone Wstr Work Phone: [facility] 07-16-2012 influenza virus vaccine, unspecified formulation Bone Wstr Work Phone: [facility] 07-03-2011 influenza virus vaccine, live, attenuated, for intranasal use Bone Wstr Work Phone: [facility] Work Phone: 06-23-2010 tetanus toxoid, redu pieter diphtheria toxoid, and acellular pertussis vaccine, adsorbed Bone Wstr Work Phone: [facility] Work Phone: 08-08-2007 influenza virus vaccine, whole virus Bone Wstr Work Phone: [facility] 1950 influenza virus vaccine, unspecified formulation Bone Wstr Work Phone: [facility] Payers Date Payer Category Payer Self-pay 2022 Private Health Insurance [id number] 2022 Private Health Insurance [facility] [id number] 2019 Unknown MMO MMO MEDICARE SUPPLEMENT [id number] 2019-Present [phone] [address] [place] [address] Indemnity [id number] 2019 Unknown [id number] 2016 Medicare MEDICARE MEDICAR E A AND B [id number] 2016-Present [phone] [place] [address] Medicare [id number] 2016 Medicare [id number] 2016 Medicare [id number] Unknown [facility] [id number] Unknown [id number] Unknown [id number] Unknown [id number] Social History Date Type Detail Facility Start: 05-14-2022 End: 12-21-2024 Tobacco smoking status CAIS Never smoked tobacco [facility] Start: 09-18-2021 End: 05-06-2025 Alcohol intake Current non-drinker of alcohol (finding) [facility] Start: 04-25-2021 End: 08-31-2022 History SDOH Alcohol Frequency 1 [facility] Start: 04-25-2021 History SDOH Alcohol Std Drinks 98 [facility] Start: 04-25-2021 End: 08-31-2022 History SDOH Social Connections Phone 5 [facility] Start: 04-25-2021 End: 08-31-2022 History SDOH Social Connections Get Together 4 [facility] Start: 04-25-2021 End: 08-31-2022 History SDOH Social Connections Christian 3 [facility] Start: 04-25-2021 End: 08-31-2022 History SDOH Social Connections Meetings 2 [facility] Start: 04-25-2021 Education 12 [facility] Start: 1950 Sex Assigned At Not on file [facility] Start: 02-26-2021 End: 08-16-2022 Exposure to SARS-CoV-2 (event) Not sure [facility] Start: 04-20-2011 End: 05-14-2022 Tobacco use and exposure Smokeless tobacco non-user [facility] Start: 08-31-2022 History SDOH Alcohol Std Drinks 0 [facility] Start: 08-31-2022 End: 02-12-2023 History of Social function [facility] Start: 08-31-2022 End: 02-12-2023 Social connection and isolation panel [facility] Do you belong to any clubs or organizations such as congregational groups, unions, fraternal or athletic groups, or school groups? Yes [facility] Are you now , , , , never or living with a partner? [facility] How often to you hav e a drink containing alcohol? Never [facility] Start: 08-31-2012 How many standard drinks containing alcohol do you have on a typical day? Patient does not drink [facility] Do you feel stress - tense, restless, nervous, or anxious, or unable to sleep at night because your mind is troubled all the time - these days [OSQ] To some extent [facility] (I/We) worried wheth er (my/our) food would run out before (I/we) got money to buy more. Never true [facility] In the past 12 month s, was there a time when you were not able to pay the mortgage or rent on time? No [facility] Start: 02-18-2020 Sexual orientation Heterosexual (finding) [facility] Do you feel stress - tense, restless, nervous, or anxious, or unable to sleep at night because your mind is troubled all the time - these days [OSQ] Only a little [facility] Start: 12-22-2024 End: 12-31-2024 Sex Female (finding) [facility] Start: 1950 Sex Assigned At Female [facility] Medical Equipment Procedure Code Equipment Code Equipment Origin al Text Equipment Identifier Dates Gas Io Ispan Vsn Sys 125gm Sf6 - [id number] Start: 06-06-2011 Comment on above: Description: SF6 22% IMPLANTED OS Gas Io Ispan Vsn Sys 125gm Sf6 - [id number] Start: 02-20-2012 Comment on above: Description: gas SF6 20% Lens Iol +22 Saturnino p 13mm 6mm Pc - [id number] Start: 06-06-2011 Lens Iol +21.5 Miky 13mm 6mm - [id number] Start: 02-20-2012 Comment on above: Description: IOL Goals Date Patient Goal Desired Activity /State Personal health goal Functional Status Date Assessment Result Facility 01-28-2015 Are you deaf, or do you have serious difficulty hearing No 01/28/2015 10:25 AM Rayna Maurer LPN No [facility] 01-28-2015 Are you blind, or do you have serious difficulty seeing, even when wearing glasses No 01/28/2015 10:25 AM Rayna Maurer LPN [facility] 01-28-2015 Do you have serious difficulty walking or climbing stairs No 01/28/2015 10:25 AM Rayna Maurer LPN No [facility] 01-28-2015 Do you have difficul ty dressing or bathing No 01/28/2015 10:25 AM Rayna Maurer LPN [facility] 01-28-2015 Because of a physica l, mental, or emotional condition, do you have difficulty doing errands alone such as visiting a physician's office or shopping No 01/28/2015 10:25 AM Rayna Maurer LPN No [facility] Mental Status Date Assessment Result Facility 01-28-2015 Because of a physica l, mental, or emotional condition, do you have serious difficulty concentrating, remembering, or making decisions No 01/28/2015 10:25 AM Rayna Maurer LPN No [facility] Clinical Notes 02-08-2017 to 07-27-2025 Blank Healy RN - 06/15/2025 1:31 PM Gabbi Hernandez RN - 05/13/2025 8:12 AM Nikole Lees MD - 04/26/2025 11:12 AM Mariana Kiser MA - 04/26/2025 10:23 AM EDTPatient Instructions Note Date & Type Note Facility 07-27-2025 Note HNO ID: [id number] Author: IVETTE DIAZ APRN.PLASTERING SUPERVISOR Service: ? Author Type: Nurse Practitioner Type: Progress Notes Filed: 07/27/2025 21:37 Note Text: This is a 75 year old female who presents today with: The patient is a 75-year-old female presenting for evaluation of presumed acute sinusitis. HISTORY OF PRESENT ILLNESS: Andre Luther is a 75-year-old female presenting with symptoms suggestive of a sinus infection. Sinus Infection: - Onset several weeks ago. - Intermittent headaches across the forehead, temporarily relieved by warm compresses. - Severe headache last night, extending under the eyes. - Persistent nasal congestion, causing mouth breathing at night. - Hoarseness when speaking over the past few weeks. - Sensation of fullness in the head. - Chronic cough due to postnasal drip, no recent changes. - Denies sore throat or otalgia. - Took Robitussin for a day or two, but no regular medication use for symptoms. - History of sinus infections, but not recently. - Recent travel plans to [place] on . PAST MEDICAL HISTORY: PAST MEDICAL HISTORY Diagnosis Date Asthma (HCC) Basal cell carcinoma 09/2024 nose Bladder cancer (HCC) Breast cancer (HCC) right s/p lumpectomy 08/2017, and radiation Macular cyst, hole, or pseudohole of retina Both eyes Osteopenia after menopause PVC (premature ventricular contraction) Shingles PAST SURGICAL HISTORY Procedure Laterality Date BREAST BIOPSY INCISIONAL RIGHT Right 07/2018 BREAST LUMPECTOMY HX Right 09/15/2018 Right NL PM/SNBx: [id number], ER/AR+, HER2 Neg, Grade 1, IDC w/tubular features; 1/2nodes COLONOSCOPY 07/2007, 01/14 nevus 1980 face. POST-CATARACT LASER SURGERY 06/26/2012 Yag Capsulotomy OS VITRECTOMY FOR MACULAR HOLE Left 06/06/2011 L eye. VITRECTOMY MECHANICAL PARS PLANA Right 02/20/2012 [place] Vitrectomy ,MP, PCIOL OD ALLERGIES Cephalosporins, Codeine, Dust, Nortriptyline, Ragweed, Doxycycline Hyclate, and Pyridium [Phenazopyridine] MEDICATIONS Current Outpatient Medications Medication Sig amoxicillin-clavulanate potassium (AUGMENTIN) 875-125 mg per tablet Take 1 tablet by mouth every 12 hours for 10 days. rosuvastatin (CRESTOR) 10 mg tablet Take 1 tablet by mouth daily at bedtime. gabapentin (NEURONTIN) 100 mg capsule Two capsules (200mg) by mouth every morning. gabapentin (NEURONTIN) 300 mg capsule Take 1 capsule by mouth daily at bedtime for 180 days. albuterol HFA (VENTOLIN HFA) 90 mcg/actuation inhaler Inhale 2 Puffs as instructed every 4 hours as needed. Cholecalciferol, Vitamin D3, 125 mcg (5,000 unit) cap Take 1 capsule by mouth once daily. carboxymethylcellulose sodium (REFRESH OPHTHALMIC) Use 1 Drop in eyes as needed. propylene glycol (SYSTANE COMPLETE OPHTHALMIC) Use 1 Drop in eyes as needed. psyllium husk (METAMUCIL ORAL) Take 1 teaspoonful by mouth two times a day. calcium carbonate (CALCIUM 600 ORAL) Take 600 mg by mouth once daily. vit A,C,S-Ovtw-Wnumll (PRESERVISION AREDS) 7,160-113-100 ydyx-jo-pxnc tab Take 1 tablet by mouth twice daily. Qngn-Bezu-AXS#6-F-Xecf-Trevon-Bor (OSTEO BI-FLEX) 750-625-30 mg Tab Take 1 tablet by mouth twice daily. No current facility-administered medications for this visit. FAMILY HISTORY Problem Relation Age of Onset Cataract Mother other (osteopenia) Mother Osteopenia Stroke Mother Heart Father SC Lipids Father High Cholesterol other (Macular Degeneration) Maternal Grandfather Heart Attack Paternal Grandmother Heart Attack Paternal Grandfather Blood Clots Daughter Coronary Artery Disease Paternal Aunt Coronary Artery Disease Paternal Uncle SOCIAL HISTORY[1] REVIEW OF SYSTEMS Head: (+) headache Eyes: (+) dry eyes Ears/Nose/Mouth/Throat: (+) nasal congestion, (+) hoarseness, (-) sore throat, (-) ear pain Respiratory: (+) cough Skin: (+) cold hands EXAM: BP 128/90 Pulse 65 Resp 16 SpO2 97% PHYSICAL EXAM: General Appearance: Well appearing, alert, in no acute distress, well-hydrated, well nourished.. Skin: Skin color, texture, turgor normal, no suspicious rashes or lesions. Head: Normocephalic, no masses, lesions, tenderness or abnormalities. Eyes: Anicteric sclera. Pupils are equally round and reactive to light. Extraocular movements are intact. . Ears: External ears normal, canals clear. Normal TMs bilaterally. Nose/Sinuses: generalized sinus tenderness. Oropharynx: Lips, mucosa, and tongue normal, teeth and gums normal, oropharynx normal. Neck: Supple, no adenopathy Lungs: Lungs clear to auscultation. No wheezing, rhonchi, rales.. Heart: RRR without murmur, gallop, or rubs. No ectopy. Neurologic: Gait normal. ASSESSMENT/PLAN 1. Acute non-recurrent maxillary sinusitis (J01.00) - Symptoms consistent with acute maxillary sinusitis, including recurrent frontal headache, severe headache radiating under the eyes, nasal congestion, and hoarseness over several w (more content not included)... [facility] 07-26-2025 Note HNO ID: [id number] Author: VANE MUÑOZ RN Service: ? Author Type: Registered Nurse Type: Progress Notes Filed: 07/26/2025 10:57 Note Text: Patient ID with (2) Identifiers, Verified by: Vane Muñoz RN Actual procedure/procedure scheduled: Yes Performing provider/scheduled provider: Yes Patient was roomed in: Q9- 09 Activity Leader offered:Patient declines Patient arrived in the room at: 1003 Patient ready for procedure: 1021 The procedure started at ( Time Only): 1036 The procedure ended at: 1037 Was the procedure delayed: No ProNox Utilized: No The patient left the procedure room at: 1056 Vane Muñoz RN PRE PROCEDURE ASSESSMENT- Cysto Latex Allergy: No Allergies reviewed and updated. Yes Pre-Procedure Vital Signs: BP: 162/82 Pulse: 80 Had lumpectomy on R. BP on Left only Heart valve replacement: No Joint replacement: No Back Office UA otained: no PROCEDURE PREP-Cysto Patient Prep: Betadine Placement of Sterile Drape: COMPLETED Anesthetic Given:Administered by MD - see Procedure Physician Note. Vane Muñoz RN POST PROCEDURE NURSE ASSESSMENT Present along with physician during procedure exam. Vane Muñoz RN Current pain intensity is 0 on a 0-10 pain scale. Vane Oanh Manfred, NUTRITIONAL ASSISTANT PATIENT EDUCATION THE FOLLOWING WAS EVALUATED Motivation To Learn: Eager Family/Significant Other Support: High - Very involved in pt care Cognitive Ability: Alert/Oriented Method of Instruction: Individual instruction Written instruction/Handouts Verbal instruction The Following Influencing Factors Were Barriers To This Education Session: None The Following Physical Limitations Were Barriers To This Education Session: None Instruction Provided To: Patient Brewing Director Present: not applicable Discipline: Nursing Learning Topic: SURVIVAL SKILLS: Complication Prevention Symptom Management Patient Evaluation: Verbalizes understanding: Yes Supplemental Material Given: Written Material Instructed By Vane Muñoz RN In Department Urology . UNIVERSAL PROTOCOL / SAFETY CHECKLIST Procedure to be Performed: Cystoscopy Sign In: A Moment of CARE was completed. Appropriate PPE (Personal Protective Equipment) worn by all providers involved with the procedure. Special equipment not required. Patient/Surrogate Stated/Verified: Patient name, Date of , Relevant allergies, and The intended procedure Time Out: Relevant labs, photos, and/or imaging studies have been reviewed. Intended patient and procedure match the source document(s) (e.g. consent, HANDP, associated studies [imaging, pathology]) match the intended patient and procedure. Consent obtained and matches the intended procedure. Yes. Correct side/site has been marked and visible. Medications required for this procedure are verified. Fire risk assessed and interventions discussed. Implants: are not applicable. Sign Out: Specimens are all correctly labeled and sent. All instruments, equipment, possible retained foreign bodies are accounted for. Yes. The post-procedure plan of care has been communicated to the patient or surrogate. [facility] 07-15-2025 Note HNO ID: [id number] Author: GABBI SAINZ RN Service: ? Author Type: Registered Nurse Type: Progress Notes Filed: 07/15/2025 12:52 Note Text: Andre Luther BLADDER INSTILLATION Patient ID with two (2) identifiers verified by: Gabbi Sainz RN Allergies reviewed and updated: Yes Medication ordered for bladder instillation: Gemzar and Taxotere Current pain intensity is: 0 on a 0-10 pain scale. Have you seen any blood in the last 24 hours: No Have you had a temperature greater than 101F in the last 24 hours: No Do you have foul smelling urine or severe burning/urgency that has worsened since the last bladder instillation treatment: No No, Proceed with Gemzar and Taxotere Any concerns about safety in the home/falls: Not at risk for falls Start Date: 05/13/25 Treatment number: Maintenance dose 3/3 Retention Time Last RX: 2 hours and 90 minutes Symptoms Post Last RX: None Pre VS: Temp: 97.4 F/, HR: 76, BP: 166/77, RR: 16, SpO2: 98% on RA Catheter Used: 14 fr. straight, placed using sterile technique, without any difficulty Balloon inflated with 5CC of sterile water 100 cc of clear clear urine drained Gemzar instilled at: 1104, corley clamped and drainage bag attached Drained at : 1230, unclamped to drain Residual TX: Yes 250 cc. Taxotere instilled at: 1244, corley clamped and drainage bag attached Urinate at home: : 1444, unclamped to drain. Balloon deflated and corley removed without difficulty. Post VS: , HR: 74, BP: 170/84, RR: 16, SpO2: 97% on RA Return to Clinic on : for cystoscopy Patient tolerated treatment well. Gabbi Sainz RN [facility] 07-02-2025 Note HNO ID: [id number] Author: ABHISHEK HUYNH MD Service: ? Author Type: Physician Type: Progress Notes Filed: 07/02/2025 13:05 Note Text: Andre Luther is a 75 year old female here for a Medicare wellness visit. Medicare Health Risk Assessment General Health Very good Exercise: Minutes/Day 10 min Exercise: Days/Week 1 day Alcohol: Daily Use Never Alcohol: Drinks/Day Patient does not drink Alcohol: 6 or more drinks Never Feel off balance No Concerns: Teeth/Dentures No Concerns: Sexual function No Troubled by feelings Stressed Frequency: Eating healthy diet Several days ADLs requiring help None of the above Safety precautions in home/vehicle Yes Smoke, vape, chews tobacco No Difficulty hearing No Difficulty seeing No Current Providers Specialists: I have reviewed specialist-related care of the patient in the medical record. Current care team: Patient Care Team: Abhishek Huynh MD as PCP - General (Family Medicine) Ivette Diaz APRN.CNP as Ortho Rn (Family Medicine) Kim Browning APRN.CNP as Ortho Rn (Family Medicine) sheree Winston Dr. Dr Her, onc Dr Agrawal, ENT Dr Bailey, urology. Dr Randall and Mariah, mauricio Medical/Family history review Reviewed and updated problem list, medical/surgical/family/social history, medications, and allergies. Opioid use review Opioid Medications (last 90 days) No data to display Anxiety/Depression screening (Lower risk for depression) ZIA-2 Score: 0 Recommendation: no further intervention at this time Cognitive screening Mini Cog Score: 5 Cognitive screening reviewed and No further action needed (score 3-5). Functional Observation Was the patient's Timed Up AND Go test unsteady or >= 12 seconds? No Advance Care Planning Surrogate decision maker and/or advance care plan documented Measurements BP 122/72 Pulse 82 Ht 154 cm (5' 0.63) Wt 64.9 kg (143 lb) SpO2 99% BMI 27.35 kg/m? Vision Screening: Follows with optometry/ophthalmology ADDITIONAL INFO: Annual Wellness Exam: - Describes general health as very good. - Exercises ~10 minutes/day, 1 day/week; decreased since November due to cancer treatments. - Denies alcohol use, balance issues, dental issues, or sexual dysfunction. - No concerns with hearing; wears glasses, but vision is pretty good. - Follows safety precautions at home and in vehicle. - Denies smoking, vaping, or chewing tobacco. - No ear, eye, mouth, neck, or chest pain. - No palpitations, syncope, or edema. - No unusual skin rashes or moles. - No issues with ADLs. - No concerns about depression; minimal anxiety, managed with lorazepam 0.5 mg once a month. - Nocturnal diaphoresis x1 month; questions if chemotherapy is the cause. - Ingested a small piece of plastic fork on Saturday; no abdominal pain, nausea, or emesis since. Bladder Cancer: - Diagnosed early, not yet stage 1; initially treated with surgery and chemotherapy. - Underwent 3 months of BCG immunotherapy; currently cancer-free. - Due to BCG shortage, transitioned to intravesical chemotherapy; completed 2 treatments, 1 remaining in June. - Experiences mild fatigue on treatment days, resolves by the next day. - Scheduled for another cystoscopy at the end of June. - High-risk cancer; treatment duration may extend up to 3 years. - Followed by Dr. Bailey (urology) and Radha Her (oncology). Breast Cancer: - History of breast cancer; followed by Radha Her (oncology). - Neuropathic pain in arm post-breast surgery, managed with gabapentin. Asthma: - Carries inhaler for security; uses occasionally in heat or during physical activity. - Denies significant breathing issues. GERD: - Well-controlled. Osteopenia: - Last DEXA scan in December 2023. Basal Cell Carcinoma: - Had a basal cell carcinoma removed from the nose by Dr. Randall and Dr. Wong (dermatology). - Undergoes biannual dermatological checks. ROS: PE: General: Alert, well-developed, no acute distress. Neck: No JVD. No carotid bruit. Lungs: Respirations unlabored, clear to auscultation, no wheezes, rales or rhonchi, symmetric air entry. Heart: Regular rate and regular rhythm, S1 and S2 normal, no murmur, no rub or gallop. Abdomen: Soft, non-tender, bowel sounds positive. Extremities: No edema. Pulses: 2+ symmetric radial pulse. Skin: Warm and dry, no unusual skin rashes or moles noted. A history of basal cell carcinoma on the nose, treated with Mohs surgery, with no current lesions observed. Assessment and Plan: 1. Medicare annual wellness visit, subsequent (Z00.00) - Completed annual wellness visit; patient reports very good general health. - Discussed importance of maintaining regular exercise and healthy diet. - Encouraged patient to keep up with all recommended vaccinations, including flu and COVID. - Follow-up in 6 months for labs; next annual w (more content not included)... [facility] 06-15-2025 Note HNO ID: [id number] Author: BLANK HEALY RN Service: ? Author Type: Registered Nurse Type: Progress Notes Filed: 06/15/2025 15:48 Note Text: Andre Luther BLADDER INSTILLATION Patient ID with two (2) identifiers verified by: Blank Healy RN Allergies reviewed and updated: Yes Medication ordered for bladder instillation: Gemzar and Taxotere Current pain intensity is: 0 on a 0-10 pain scale. Have you seen any blood in the last 24 hours: No Have you had a temperature greater than 101F in the last 24 hours: No Do you have foul smelling urine or severe burning/urgency that has worsened since the last bladder instillation treatment: No No, Proceed with Gemzar and Taxotere Any concerns about safety in the home/falls: Not at risk for falls Start Date: 05/13/25 Treatment number: Maintenance dose 2/3 Retention Time Last RX: 90mins 2 hours Symptoms Post Last RX: Malaise for a day Pre VS: Temp: 98.2f, HR: 87, BP: 175/83, RR: 16, SpO2: 96% on RA Catheter Used: 14 fr. Coude straight, placed using sterile technique, without any difficulty. Administered Lidocaine. Lowered HOB. Balloon inflated with 5CC of sterile water 30 cc of yellow clear urine drained Gemzar instilled at: 1354, corley clamped and drainage bag attached Drained at : 1524, unclamped to drain Residual TX: Yes 120 cc. Taxotere instilled at: 1540 Urinate at home: : 1740 Balloon deflated and corley removed without difficulty Cleaned and dried Return to Clinic on : Next month for bladder instillation Patient tolerated treatment well. Blank Healy RN [facility] 06-15-2025 History of Present illness Narrative Andre Luther BLADDER INSTILLATION Patient ID with two (2) identifiers verified by: Blank Healy RN Allergies reviewed and updated: Yes Medication ordered for bladder instillation: Gemzar and Taxotere Current pain intensity is: 0 on a 0-10 pain scale. Have you seen any blood in the last 24 hours: No Have you had a temperature greater than 101F in the last 24 hours: No Do you have foul smelling urine or severe burning/urgency that has worsened since the last bladder instillation treatment: No No, Proceed with Gemzar and Taxotere Any concerns about safety in the home/falls: Not at risk for falls Start Date: 05/13/25 Treatment number: Maintenance dose 2/3 Retention Time Last RX: 90mins 2 hours Symptoms Post Last RX: Malaise for a day Pre VS: Temp: 98.2f, HR: 87, BP: 175/83, RR: 16, SpO2: 96% on RA Catheter Used: 14 fr. Coude straight, placed using sterile technique, without any difficulty. Administered Lidocaine. Lowered HOB. Balloon inflated with 5CC of sterile water 30 cc of yellow clear urine drained Gemzar instilled at: 1354, corley clamped and drainage bag attached Drained at : 1524, unclamped to drain Residual TX: Yes 120 cc. Taxotere instilled at: 1540 Urinate at home: : 1740 Balloon deflated and corley removed without difficulty Cleaned and dried Return to Clinic on : Next month for bladder instillation Patient tolerated treatment well. Blank Healy RN documented in this encounter [facility] 05-13-2025 Note HNO ID: [id number] Author: GABBI SAINZ RN Service: ? Author Type: Registered Nurse Type: Progress Notes Filed: 05/13/2025 10:42 Note Text: AMBULATORY PATIENT EDUCATION TOPIC: CHEMOTHERAPY: gemzar and taxotere READINESS TO LEARN COGNITIVE ABILITY: Alert and oriented MOTIVATION TO LEARN: Eager FAMILY SUPPORT: High - Very involved in pt care INSTRUCTION PROVIDED TO: Patient PATIENT LEARNS BEST BY: Individual Instruction Written Instruction - Hand-outs Verbal Instruction FACTORS AFFECTING LEARNING: None PHYSICAL LIMITATIONS AFFECTING LEARNING: None LEARNING RESPONSE DIAGNOSIS: bladder cancer METHOD OF INSTRUCTION: Individual instruction Written instruction/Handouts Verbal instruction PATIENT / FAMILY RESPONSE: Verbalizes understanding of: CHEMOTHERAPY-Regimen, toxicity and side effects INFECTION MANAGEMENT-Signs and symptoms of an infection and importance of contacting the physician MEDICAL REGIMEN-Importance of following prescribed medical regimen MEDICATION ROUTE-Correct route for administration of the prescribed medication MEDICATION SIDE EFFECTS-Side effects associated with the medication that warrant a call to the physician FOLLOW-UP PLAN: Complete - No need for follow-up SUPPLEMENTAL MATERIAL: gemzar and taxotere handout REFERRAL (RECOMMENDATION): None Electronically Signed By Gabbi Sainz RN In Department: UROLOGY BLADDER INSTILLATION Patient ID with two (2) identifiers verified by: Gabbi Sainz RN Allergies reviewed and updated: Yes Medication ordered for bladder instillation: Gemzar and Taxotere Current pain intensity is: 0 on a 0-10 pain scale. Have you seen any blood in the last 24 hours: No Have you had a temperature greater than 101F in the last 24 hours: No Do you have foul smelling urine or severe burning/urgency that has worsened since the last bladder instillation treatment: No Any concerns about safety in the home/falls: Not at risk for falls BP 162/78, pulse 72 Temp 36.5 C Start Date: 05/13/25 Treatment number: Maintenance dose 10/02 Catheter Used: 14 fr. Corley, drained 100 cc of clear yellow urine Gemzar instilled at: 0845, clamped corley catheter Patient had some leaking, changed pads, cleaned skin and lowered the head of the bed Drained at: 1015 Residual TX: Yes 100 cc, Taxotere instilled at 1026, Deflated balloon and discontinued corley catheter Patient to urinate in 2 hours at home. Return to Clinic on : monthly Patient tolerated treatment well. Gabbi Sainz RN [facility] 05-13-2025 History of Present illness Narrative AMBULATORY PATIENT EDUCATION TOPIC: CHEMOTHERAPY: gemzar and taxotere READINESS TO LEARN COGNITIVE ABILITY: Alert and oriented MOTIVATION TO LEARN: Eager FAMILY SUPPORT: High - Very involved in pt care INSTRUCTION PROVIDED TO: Patient PATIENT LEARNS BEST BY: Individual Instruction Written Instruction - Hand-outs Verbal Instruction FACTORS AFFECTING LEARNING: None PHYSICAL LIMITATIONS AFFECTING LEARNING: None LEARNING RESPONSE DIAGNOSIS: bladder cancer METHOD OF INSTRUCTION: Individual instruction Written instruction/Handouts Verbal instruction PATIENT / FAMILY RESPONSE: Verbalizes understanding of: CHEMOTHERAPY-Regimen, toxicity and side effects INFECTION MANAGEMENT-Signs and symptoms of an infection and importance of contacting the physician MEDICAL REGIMEN-Importance of following prescribed medical regimen MEDICATION ROUTE-Correct route for administration of the prescribed medication MEDICATION SIDE EFFECTS-Side effects associated with the medication that warrant a call to the physician FOLLOW-UP PLAN: Complete - No need for follow-up SUPPLEMENTAL MATERIAL: gemzar and taxotere handout REFERRAL (RECOMMENDATION): None Electronically Signed By Gabbi Sainz RN In Department: UROLOGY BLADDER INSTILLATION Patient ID with two (2) identifiers verified by: Gabbi Sainz RN Allergies reviewed and updated: Yes Medication ordered for bladder instillation: Gemzar and Taxotere Current pain intensity is: 0 on a 0-10 pain scale. Have you seen any blood in the last 24 hours: No Have you had a temperature greater than 101F in the last 24 hours: No Do you have foul smelling urine or severe burning/urgency that has worsened since the last bladder instillation treatment: No Any concerns about safety in the home/falls: Not at risk for falls BP 162/78, pulse 72 Temp 36.5 C Start Date: 05/13/25 Treatment number: Maintenance dose / Catheter Used: 14 fr. Corley, drained 100 cc of clear yellow urine Gemzar instilled at: 0845, clamped corley catheter Patient had some leaking, changed pads, cleaned skin and lowered the head of the bed Drained at: 1015 Residual TX: Yes 100 cc, Taxotere instilled at 1026, Deflated balloon and discontinued corley catheter Patient to urinate in 2 hours at home. Return to Clinic on : monthly Patient tolerated treatment well. Gabbi Sainz RN documented in this encounter [facility] 05-06-2025 Note HNO ID: [id number] Author: FELICITAS GONZALES OD Service: ? Author Type: HOT HEADER OPERATOR Type: Progress Notes Filed: 05/06/2025 10:53 Note Text: 1. Meibomian gland dysfunction (MGD) of upper and lower lids of both eyes 2. Dry eye syndrome of bilateral lacrimal glands Recommended trying Systane Pro PF or iVizia 3-4x daily and restarting gel nightly in both eyes 3. Regular astigmatism of both eyes Finalized spec rx- no change 4. Macular hole, bilateral Continue follow-up with Dr. 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 I have seen and examined Andre Sharpe Homa. I have discussed the case and the management of this patient's care with the Resident/Fellow, if applicable. I also have reviewed and agree with the assessment and plan as stated above and agree with all of its relevant components. Felicitas Gonzales, LETITIA May 06, 2025 10:51 AM [facility] 04-26-2025 Note HNO ID: [id number] Author: NIKOLE BAILEY MD Service: ? Author Type: Physician Type: Progress Notes Filed: 04/26/2025 11:21 Note Text: PROCEDURE NOTE: PREOPERATIVE DIAGNOSIS: TaHG 01.18.25 iBCG completed 03.19.25 POSTOPERATIVE DIAGNOSIS: Same OPERATION: Flexible Cystourethroscopy SURGEON: Nikole Bailey MD ANESTHESIA: 2% lidocaine jelly COMPLICATIONS: None EBL: Minimal SPECIMEN: Voided urine was collected and submitted for cytology. DISPOSITION: The patient was discharged home after the procedure, per routine. INDICATIONS: : Ms. Luther is a 75 year old patient with a history of TaHG who presents today for Cystoscopy. The indications, risks and benefits of this procedure were discussed with the patient, consent was obtained prior to the procedure, and to the best of my judgement the patient seemed to understand and agree to the procedure. PROCEDURE: The patient was brought into the procedure suite and informed consent was reviewed and confirmed. Vital signs were obtained prior to the procedure: There were no vitals taken for this visit.. The patient was escorted onto the stretcher, placed supine and froglegged, prepped with betadine and draped in the usual standard surgical fashion. Intraurethral 2% viscous lidocaine jelly was used for local analgesia. A 16 Taiwanese flexible cystourethroscope was inserted into the urethra. Upon entering the bladder the entire bladder was surveyed in a 360 degree fashion. The left and right ureteral orifices were in normal orthotopic position effluxing clear yellow urine, bilaterally. There was no evidence of any bladder lesions, foreign objects, stones or evidence of any mucosal changes. The cystoscope was then retroflexed. The bladder neck was then further examined without any evidence of lesions. The scope was then removed and in an antegrade fashion, the urethra and bladder were again resurveyed with no evidence of additional lesions. The cystoscope was then fully removed. The patient tolerated the procedure well. Vitals were stable after the procedure. The patient was able to void and was discharged home. Verbal and written Post procedure instructions were reviewed with the patient. IMPRESSION: Normal cysto PLAN: Cysto 3 mo [place]/doce maintenance due to BCG shortage Nikole Bailey MD MPH MSc Motor Equipment Lieutenant Urologic Oncology Translational Science Lead, Oncology Department of Urology [address] [place], [place] [id number] [place] [address] 04-26-2025 History of Present illness Narrative PROCEDURE NOTE: PREOPERATIVE DIAGNOSIS: TaHG 01.18.25 iBCG completed 03.19.25 POSTOPERATIVE DIAGNOSIS: Same OPERATION: Flexible Cystourethroscopy SURGEON: Nikole Bailey MD ANESTHESIA: 2% lidocaine jelly COMPLICATIONS: None EBL: Minimal SPECIMEN: Voided urine was collected and submitted for cytology. DISPOSITION: The patient was discharged home after the procedure, per routine. INDICATIONS: : Ms. Luther is a 75 year old patient with a history of TaHG who presents today for Cystoscopy. The indications, risks and benefits of this procedure were discussed with the patient, consent was obtained prior to the procedure, and to the best of my judgement the patient seemed to understand and agree to the procedure. PROCEDURE: The patient was brought into the procedure suite and informed consent was reviewed and confirmed. Vital signs were obtained prior to the procedure: There were no vitals taken for this visit.. The patient was escorted onto the stretcher, placed supine and froglegged, prepped with betadine and draped in the usual standard surgical fashion. Intraurethral 2% viscous lidocaine jelly was used for local analgesia. A 16 [place]ese flexible cystourethroscope was inserted into the urethra. Upon entering the bladder the entire bladder was surveyed in a 360 degree fashion. The left and right ureteral orifices were in normal orthotopic position effluxing clear yellow urine, bilaterally. There was no evidence of any bladder lesions, foreign objects, stones or evidence of any mucosal changes. The cystoscope was then retroflexed. The bladder neck was then further examined without any evidence of lesions. The scope was then removed and in an antegrade fashion, the urethra and bladder were again resurveyed with no evidence of additional lesions. The cystoscope was then fully removed. The patient tolerated the procedure well. Vitals were stable after the procedure. The patient was able to void and was discharged home. Verbal and written Post procedure instructions were reviewed with the patient. IMPRESSION: Normal cysto PLAN: Cysto 3 mo [place]/doce maintenance due to BCG shortage Nikole Bailey MD MPH MSc Motor Equipment Lieutenant Urologic Oncology Translational Science Lead, Oncology Department of Urology [address] [place] [address] Patient ID with (2) Identifiers, Verified by: Mariana Gray MA Actual procedure/procedure scheduled: Yes Performing provider/scheduled provider: Yes Patient was roomed in: Q9- 08 Activity Leader offered:Patient declines Patient arrived in the room at: 1040 Patient ready for procedure: 1052 The procedure started at ( Time Only): 1100 The procedure ended at: 1105 Was the procedure delayed: No ProNox Utilized: No The patient left the procedure room at: 1112 Mariana Gray MA PRE PROCEDURE ASSESSMENT- Cysto Latex Allergy: No Allergies reviewed and updated. Yes Pre-Procedure Vital Signs: BP: 158/77 Pulse: 82 Heart valve replacement: No Joint replacement: No Back Office UA otained: yes PROCEDURE PREP-Cysto Patient Prep: Betadine Placement of Sterile Drape: COMPLETED Anesthetic Given:Administered by MD - see Procedure Physician Note. Mariana Gray MA POST PROCEDURE NURSE ASSESSMENT Present along with physician during procedure exam. Mariana Gray MA Current pain intensity is 0 on a 0-10 pain scale. Mariana Gray MA AMBULATORY PATIENT EDUCATION THE FOLLOWING WAS EVALUATED Motivation To Learn: Interested Family/Significant Other Support: Unable to assess - Family not present Cognitive Ability: Alert/Oriented Method of Instruction: Individual instruction The Following Influencing Factors Were Barriers To This Education Session: None The Following Physical Limitations Were Barriers To This Education Session: None Instruction Provided To: Patient Brewing Director Present: not applicable Discipline: Nursing Learning Topic: SURVIVAL SKILLS: Symptom Management Patient Evaluation: Verbalizes understanding: Yes Supplemental Material Given: Written Material Instructed By Mariana Gray MA In Department Urology . UNIVERSAL PROTOCOL / SAFETY CHECKLIST Procedure to be Performed: Cystoscopy Sign In: A Moment of CARE was completed. Appropriate PPE (Personal Protective Equipment) worn by all providers involved with the procedure. Special equipment not required. Patient/Surrogate Stated/Verified: Patient name, Date of , Relevant allergies, and The intended procedure Time Out: Relevant labs, photos, and/or imaging studies have been reviewed. Intended patient and procedure match the source document(s) (e.g. consent, H&P, associated studies [imaging, pathology]) match the intended patient and procedure. Consent obtained and matches the intended procedure. Yes. Correct side/site is not applicable. Medications required for this procedure are verified. Fire risk assessed and interventions discussed. Implants: are not applicable. Sign Out: Specimens are all correctly labeled and sent. All instruments, equipment, possible retained foreign bodies are accounted for. Yes. The post-procedure plan of care has been communicated to the patient or surrogate. documented in this encounter [facility] 04-26-2025 Note HNO ID: [id number] Author: MARIANA GRAY MA Service: ? Author Type: Orthopedic Brace Maker Type: Progress Notes Filed: 04/26/2025 11:15 Note Text: Patient ID with (2) Identifiers, Verified by: Mariana Gray MA Actual procedure/procedure scheduled: Yes Performing provider/scheduled provider: Yes Patient was roomed in: 9- 08 Activity Leader offered:Patient declines Patient arrived in the room at: 1040 Patient ready for procedure: 1052 The procedure started at ( Time Only): 1100 The procedure ended at: 1105 Was the procedure delayed: No ProNox Utilized: No The patient left the procedure room at: 1112 Mariana Gray MA PRE PROCEDURE ASSESSMENT- Cysto Latex Allergy: No Allergies reviewed and updated. Yes Pre-Procedure Vital Signs: BP: 158/77 Pulse: 82 Heart valve replacement: No Joint replacement: No Back Office UA otained: yes PROCEDURE PREP-Cysto Patient Prep: Betadine Placement of Sterile Drape: COMPLETED Anesthetic Given:Administered by MD - see Procedure Physician Note. Mariana Gray MA POST PROCEDURE NURSE ASSESSMENT Present along with physician during procedure exam. Mariana Gray MA Current pain intensity is 0 on a 0-10 pain scale. Mariana Gray MA AMBULATORY PATIENT EDUCATION THE FOLLOWING WAS EVALUATED Motivation To Learn: Interested Family/Significant Other Support: Unable to assess - Family not present Cognitive Ability: Alert/Oriented Method of Instruction: Individual instruction The Following Influencing Factors Were Barriers To This Education Session: None The Following Physical Limitations Were Barriers To This Education Session: None Instruction Provided To: Patient Brewing Director Present: not applicable Discipline: Nursing Learning Topic: SURVIVAL SKILLS: Symptom Management Patient Evaluation: Verbalizes understanding: Yes Supplemental Material Given: Written Material Instructed By Mariana Gray MA In Department Urology . UNIVERSAL PROTOCOL / SAFETY CHECKLIST Procedure to be Performed: Cystoscopy Sign In: A Moment of CARE was completed. Appropriate PPE (Personal Protective Equipment) worn by all providers involved with the procedure. Special equipment not required. Patient/Surrogate Stated/Verified: Patient name, Date of , Relevant allergies, and The intended procedure Time Out: Relevant labs, photos, and/or imaging studies have been reviewed. Intended patient and procedure match the source document(s) (e.g. consent, HANDP, associated studies [imaging, pathology]) match the intended patient and procedure. Consent obtained and matches the intended procedure. Yes. Correct side/site is not applicable. Medications required for this procedure are verified. Fire risk assessed and interventions discussed. Implants: are not applicable. Sign Out: Specimens are all correctly labeled and sent. All instruments, equipment, possible retained foreign bodies are accounted for. Yes. The post-procedure plan of care has been communicated to the patient or surrogate. [facility] 03-19-2025 Note HNO ID: [id number] Author: ANDREAS BLACKWELL RN Service: ? Author Type: Registered Nurse Type: Progress Notes Filed: 03/19/2025 10:32 Note Text: BLADDER INSTILLATION Patient ID with two (2) identifiers verified by: Andreas Blackwell RN Allergies reviewed and updated: Yes Medication ordered for bladder instillation: BCG Current pain intensity is: 0 on a 0-10 pain scale. Have you seen any blood in the last 24 hours: No Have you had a temperature greater than 101F in the last 24 hours: No Do you have foul smelling urine or severe burning/urgency that has worsened since the last bladder instillation treatment: No No, Proceed with BCG Any concerns about safety in the home/falls: Not at risk for falls Start Date: 02/09/2025 Vitals- BP 145/70 (LUE), HR 72, PO2 97% on RA, Temp 98.0F Treatment number: 02/01, decreased by one dose due to UTI week 2. Retention Time Last RX: 120 minutes Symptoms Post Last RX: spasms day of instillation Catheter Used: 14 fr. Straight, inserted with sterile technique, return residual clear, yellow urine of 30 cc. BCG instilled at: 1005 Catheter clamped and removed without difficulty Urinate at: 1205 Return to Clinic on : cystoscopy April 26, Q9 Patient tolerated treatment well. Andreas Blackwell RN [facility] 03-19-2025 History of Present illness Narrative BLADDER INSTILLATION Patient ID with two (2) identifiers verified by: Andreas Blackwell RN Allergies reviewed and updated: Yes Medication ordered for bladder instillation: BCG Current pain intensity is: 0 on a 0-10 pain scale. Have you seen any blood in the last 24 hours: No Have you had a temperature greater than 101F in the last 24 hours: No Do you have foul smelling urine or severe burning/urgency that has worsened since the last bladder instillation treatment: No No, Proceed with BCG Any concerns about safety in the home/falls: Not at risk for falls Start Date: 02/09/2025 Vitals- BP 145/70 (LUE), HR 72, PO2 97% on RA, Temp 98.0F Treatment number: 5/, decreased by one dose due to UTI week 2. Retention Time Last RX: 120 minutes Symptoms Post Last RX: spasms day of instillation Catheter Used: 14 fr. Straight, inserted with sterile technique, return residual clear, yellow urine of 30 cc. BCG instilled at: 1005 Catheter clamped and removed without difficulty Urinate at: 1205 Return to Clinic on : cystoscopy April 26, Q9 Patient tolerated treatment well. Andreas Blackwell RN documented in this encounter [facility] 03-12-2025 Note HNO ID: [id number] Author: ANDREAS BLACKWELL RN Service: ? Author Type: Registered Nurse Type: Progress Notes Filed: 03/12/2025 10:06 Note Text: BLADDER INSTILLATION Patient ID with two (2) identifiers verified by: Andreas Blackwell RN Allergies reviewed and updated: Yes Medication ordered for bladder instillation: BCG Current pain intensity is: 0 on a 0-10 pain scale. Have you seen any blood in the last 24 hours: No Have you had a temperature greater than 101F in the last 24 hours: No Do you have foul smelling urine or severe burning/urgency that has worsened since the last bladder instillation treatment: No No, Proceed with BCG Any concerns about safety in the home/falls: Not at risk for falls Vitals- HR 72 BP 152/72, LUE PO2 99%, RA Temp 97.8F Start Date: 02/09/2025 Treatment number: 4 of 5 Retention Time Last RX: 120 minutes Symptoms Post Last RX: None Catheter Used: 14 fr. Straight, inserted with sterile technique, return residual clear yellow urine of 20 cc. BCG instilled at: 0950 Catheter clamped and removed without difficulty Urinate at: 1150 Return to Clinic on : next week Patient tolerated treatment well. Andreas Blackwell RN [facility] 03-12-2025 History of Present illness Narrative BLADDER INSTILLATION Patient ID with two (2) identifiers verified by: Andreas Blackwell RN Allergies reviewed and updated: Yes Medication ordered for bladder instillation: BCG Current pain intensity is: 0 on a 0-10 pain scale. Have you seen any blood in the last 24 hours: No Have you had a temperature greater than 101F in the last 24 hours: No Do you have foul smelling urine or severe burning/urgency that has worsened since the last bladder instillation treatment: No No, Proceed with BCG Any concerns about safety in the home/falls: Not at risk for falls Vitals- HR 72 BP 152/72, LUE PO2 99%, RA Temp 97.8F Start Date: 02/09/2025 Treatment number: 4 of 5 Retention Time Last RX: 120 minutes Symptoms Post Last RX: None Catheter Used: 14 fr. Straight, inserted with sterile technique, return residual clear yellow urine of 20 cc. BCG instilled at: 0950 Catheter clamped and removed without difficulty Urinate at: 1150 Return to Clinic on : next week Patient tolerated treatment well. Andreas Blackwell RN documented in this encounter [facility] 03-05-2025 Note HNO ID: [id number] Author: ANDREAS BLACKWELL RN Service: ? Author Type: Registered Nurse Type: Progress Notes Filed: 03/05/2025 10:26 Note Text: BLADDER INSTILLATION Patient ID with two (2) identifiers verified by: Andreas Blackwell RN Allergies reviewed and updated: Yes Medication ordered for bladder instillation: BCG Current pain intensity is: 0 on a 0-10 pain scale. Have you seen any blood in the last 24 hours: No Have you had a temperature greater than 101F in the last 24 hours: No Do you have foul smelling urine or severe burning/urgency that has worsened since the last bladder instillation treatment: No No, Proceed with BCG Any concerns about safety in the home/falls: Not at risk for falls Vitals: BP 135/77, LUE HR 69 PO2 99% RA Start Date: 02/09/2025 Treatment number: 3 of 5 Retention Time Last RX: 120 minutes Symptoms Post Last RX: had UTI after last instillation Catheter Used: 14 fr. Straight, inserted with sterile technique, return clear yellow urine, 50cc. Patient requested to not get lidocaine, RN did not give lidocaine, per patient request. BCG instilled at: 1007 Catheter removed without difficulty Urinate at: 1207 Return to Clinic on : next week Patient tolerated treatment well. Andreas Blackwell RN [facility] 03-05-2025 History of Present illness Narrative BLADDER INSTILLATION Patient ID with two (2) identifiers verified by: Andreas Blackwell RN Allergies reviewed and updated: Yes Medication ordered for bladder instillation: BCG Current pain intensity is: 0 on a 0-10 pain scale. Have you seen any blood in the last 24 hours: No Have you had a temperature greater than 101F in the last 24 hours: No Do you have foul smelling urine or severe burning/urgency that has worsened since the last bladder instillation treatment: No No, Proceed with BCG Any concerns about safety in the home/falls: Not at risk for falls Vitals: BP 135/77, LUE HR 69 PO2 99% RA Start Date: 02/09/2025 Treatment number: 3 of 5 Retention Time Last RX: 120 minutes Symptoms Post Last RX: had UTI after last instillation Catheter Used: 14 fr. Straight, inserted with sterile technique, return clear yellow urine, 50cc. Patient requested to not get lidocaine, RN did not give lidocaine, per patient request. BCG instilled at: 1007 Catheter removed without difficulty Urinate at: 1207 Return to Clinic on : next week Patient tolerated treatment well. nAdreas Blackwell RN documented in this encounter [facility] 03-02-2025 Instructions Carlton Verde MD - 03/02/2025 2:46 PM EDT Keep an eye on your blood pressure at home. If you notice it creeping up more consistently in the 130s-140s please let me know as that would be a reason to consider blood pressure medication. If you can incorporate a daily walk, we may be able to bring down your BP to a goal of <120/80 naturally. Let's follow up in 1 year. Please call with any questions: [phone] documented in this encounter [facility] 03-02-2025 History of Present illness Narrative Images from the original note were not included. [facility] [place] Mi Espinoza Department of Cardiovascular Medicine SECTION OF CLINICAL CARDIOLOGY OUTPATIENT VISIT DATE March 02, 2025 OUTPATIENT VISIT TYPE ESTABLISHED PRIMARY CARE PHYSICIAN: Abhishek Huynh [address] [place] [address] REFERRING PHYSICIAN: Carlton Verde [address] [facility] [id number] CHIEF COMPLAINT: Follow up HISTORY OF PRESENT ILLNESS: Ms. Luther is a 75 year old female with a medical history significant for PVCs, asthma, breast cancer s/p lumpectomy (08/2017) and radiation, osteopenia post-menopause, bladder cancer s/p TURBT (December 2024) and now on immunotherapy who presents today for a cardiovascular medicine follow-up visit. She was last seen on 02/19/2023 at which time she was exercising, feeling well, LDL had increased from 110 to 127 due to more fast food consumption. I advised statin initiation given her 10-year ASCVD risk score was 15.8% but she wanted to wait for a repeat lipid panel and thereafter would consider. Her TC was 208, LDL 122 so I advised starting rosuvastatin 10mg daily. Most recent lipids on 02/16/2025 showed TC 145, TG 99, HDL 61, LDL 66. Now that she is undergoing immunotherapy, she is a little tired but otherwise feels ok. 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 In terms of nutrition, she states she has raisin bran with blueberries and raisins for breakfast; lunch could be a salad or burger or macaroni salad; dinner could be anything. She states she is eating better than she was 2 years ago, not as much fast food. BP is 148/84 which she states is related to white coat syndrome. BP at home is typically 128/75 (and she has brought her machine in for calibration). PAST CARDIAC HISTORY: See HPI PAST MEDICAL HISTORY Diagnosis Date Asthma (HCC) Basal cell carcinoma 09/2024 nose Bladder cancer (HCC) Breast cancer (HCC) right s/p lumpectomy 08/2017, and radiation Macular cyst, hole, or pseudohole of retina Both eyes Osteopenia after menopause PVC (premature ventricular contraction) Shingles PAST SURGICAL HISTORY Procedure Laterality Date BREAST BIOPSY INCISIONAL RIGHT Right 07/2018 BREAST LUMPECTOMY HX Right 09/15/2018 Right NL PM/SNBx: [id number], ER/AR+, HER2 Neg, Grade 1, IDC w/tubular features; 1/2nodes COLONOSCOPY 07/2007, 01/14 nevus 1980 face. POST-CATARACT LASER SURGERY 06/26/2012 Yag Capsulotomy OS VITRECTOMY FOR MACULAR HOLE Left 06/06/2011 L eye. VITRECTOMY MECHANICAL PARS PLANA Right 02/20/2012 Pars Plana Vitrectomy ,MP, PCIOL OD SOCIAL HISTORY Social History Tobacco Use Smoking status: Never Smokeless tobacco: Never Vaping Use Vaping status: Never Used Substance Use Topics Alcohol use: No Drug use: No FAMILY HISTORY Problem Relation Age of Onset Cataract Mother other (osteopenia) Mother Osteopenia Stroke Mother Heart Father SC Lipids Father High Cholesterol other (Macular Degeneration) Maternal Grandfather Heart Attack Paternal Grandmother Heart Attack Paternal Grandfather Blood Clots Daughter Coronary Artery Disease Paternal Aunt Coronary Artery Disease Paternal Uncle ALLERGIES: ALLERGIES Allergen Reactions Cephalosporins Rash Codeine GI Upset Dust Itching Nortriptyline Intolerance Elevated blood pressure and pulse. Ragweed Doxycycline Hyclate Intolerance Reflux Pyridium [Phenazopy* Other: See Comments dizziness MEDICATIONS: LORazepam (ATIVAN) 1 mg tablet^Take 0.5-1 tablets by mouth every 8 hours for 30 days.^Disp: 30 tablet^Rfl: 0 rosuvastatin (CRESTOR) 10 mg tablet^Take 1 tablet by mouth daily at bedtime.^Disp: 90 tablet^Rfl: 3 trospium (SANCTURA) 20 mg tablet^Take 1 tablet by mouth two times a day.^Disp: 60 tablet^Rfl: 2 (Patient not taking: Reported on 03/02/2025) gabapentin (NEURONTIN) 100 mg capsule^Two capsules (200mg) by mouth every morning.^Disp: 180 capsule^Rfl: 5 gabapentin (NEURONTIN) 300 mg capsule^Take 1 capsule by mouth daily at bedtime for 180 days.^Disp: 30 capsule^Rfl: 5 albuterol HFA (VENTOLIN HFA) 90 mcg/actuation inhaler^Inhale 2 Puffs as instructed every 4 hours as needed.^Disp: 1 Each^Rfl: 1 Cholecalciferol, Vitamin D3, 125 mcg (5,000 unit) cap^Take 1 capsule by mouth once daily.^Disp: ^Rfl: carboxymethylcellulose sodium (REFRESH OPHTHALMIC)^Use 1 Drop in eyes as needed.^Disp: ^Rfl: propylene glycol (SYSTANE COMPLETE OPHTHALMIC)^Use 1 Drop in eyes as needed.^Disp: ^Rfl: Azelastine HCl (OPTIVAR) 0.05 % ophthalmic solution^Use 1 Drop in both eyes twice daily as needed (allergies).^Disp: 6 mL^Rfl: 2 psyllium husk (METAMUCIL ORAL)^Take 1 teaspoonful by mouth two times a day.^Disp: ^Rfl: calcium carbonate (CALCIUM 600 ORAL)^Take 600 mg by mouth once daily.^Disp: ^Rfl: vit A,C,R-Djre-Vmklpn (PRESERVISION AREDS) 7,160-113-100 vzrm-db-yfrl tab^Take 1 tablet by mouth twice daily.^Disp: ^Rfl: Fzdb-Rfcb-VYL#8-L-Modl-Trevon-Bor (OSTEO BI-FLEX) 750-625-30 mg Tab^Take 1 tablet by mouth twice daily.^Disp: 60 tablet^Rfl: 3 REVIEW OF SYSTEMS: GENERAL: Negative for: Weight loss or gain, Fever or Chills, Weakness and Sleep difficulties. HEENT: Negative for: Headache, Impaired Vision, Glasses, Hearing Impairment, Ringing in Ears, Nosebleeds, Poor dental care, Bleeding Gums, Dentures NECK: Negative for: Swelling, Pain, Stiffness RESPIRATORY: Negative for: Cough, Blood in Sputum, Shortness of breath, Wheezing, Apnea GASTROINTESTINAL: Negative for: Trouble swallowing, Heartburn, Change in bowel habits, Blood in stool, Dark black stools MUSCULOSKELETAL: Negative for: Muscle or joint pain, Stiffness , Joint swelling NEUROLOGIC/PSYCHIATRIC: Negative for: Weakness, Paralysis, Numbness, Tingling, Tremor, Nervousness, Depressed mood, Memory loss SKIN: Negative for: Rashes, Itching HEMATOLOGICAL/LYMPHATIC: Negative for: Easy bruising , Easy bleeding ENDOCRINE: Negative for: Heat or cold intolerance, Excessive sweating, Frequent urination, Frequent thirst PHYSICAL EXAMINATION: BP 148/84 (BP Site: Left Arm) Pulse 72 Wt 64.8 kg (142 lb 12.8 oz) SpO2 99% BMI 26.98 kg/m General: Well appearing, in no acute distress. Skin: No clubbing, no cyanosis. Eyes: Extra ocular movements intact Oropharynx: Teeth in good repair. Neck: No jugular venous distention, no carotid bruits, carotids have a normal upstroke, no palpable thyromegaly. Lungs: Clear to auscultation bilaterally, no wheezing or rhonchi. Heart: Regular rhythm, PMI not displaced, S1, S2 normal, no S3, no S4, no heaves, no rub and no murmur. Abdomen: Soft, nontender, bowel sounds normal, no palpable organomegaly, no bruits. Extremities: No peripheral edema . Grade 2/4 distal pulses bilaterally. Neuro: Oriented to person, place and time, alert, cooperative, gait coordinated. CARDIOVASCULAR MEDICINE TESTING: No tests performed for review. 02/19/2023 ECG: sinus rhythm with isolated PVC 10/15/2019 NM Exercise Stress: CONCLUSIONS: 1. SPECT Perfusion Study: Normal. 2. Average functional capacity for age and gender. 3. There is no scintigraphic evidence for inducible ischemia. 4. No evidence of scarred myocardium. 5. Left ventricle is normal in size. The left ventricle systolic function is normal. 6. Right ventricle is normal in size. The right ventricle systolic function is normal. 7. This is a low risk scan. Gated Stress FBP Gated Rest FBP LVEF % 70 56 RESTING ECG: NORMAL SINUS RHYTHM, NONSPECIFIC ST-T WAVE CHANGES, OCCASIONAL PVC'S (3-7/min). OBSERVATION: 1. THE TEST WAS TERMINATED DUE TO GENERAL FATIGUE, THE TEST WAS TERMINATED DUE TO JOINT PAIN. 2. NORMAL CHRONOTROPIC REPONSE INDEX (>0.8 NOT ON BETA-DHEERAJ), ADEQUATE HEART RATE RESPONSE OF 99% PREDICTED MAXIMAL HEART RATE, NORMAL HEART RATE RECOVERY @ 1 MINUTE POST EXERCISE. 3. FUNCTIONAL CAPACITY IS ESTIMATED AT 7.8 METS, STAGE 4 FRANCHESKA 10.0% PR[place]OCOL[place] [address], AVERAGE FUNCTIONAL CAPACITY FOR AGE AND GENDER. 4. NORMAL BLOOD PRESSURE RESPONSE TO STRESS. 5. NORMAL ST SEGMENT RESPONSE TO STRESS. 6. NORMAL DOWNEY TREADMILL SCORE (>/=5). 7. ANGINA WAS NOT PROVOKED BY STRESS. 8. ISOLATED VENTRICULAR COUPLET(S) AND/OR TRIPLET(S) DURING STRESS, MULTIFOCAL PVC'S DURING THE TEST, PAC'S DURING THE TEST. 9. NO PRIOR TEST FOR COMPARISON AT [facility]. CONCLUSION: NORMAL. 09/24/2019 Zio Monitor: Patient had a min HR of 41 bpm, max HR of 171 bpm, and avg HR of 70 bpm. Predominant underlying rhythm was Sinus Rhythm. 1 run of Ventricular Tachycardia occurred lasting 17.5 secs with a max rate of 109 bpm (avg 101 bpm). 12 Supraventricular Tachycardia runs occurred, the run with the fastest interval lasting 4 beats with a max rate of 171 bpm, the longest lasting 10.2 secs with an avg rate of 139 bpm. Isolated SVEs were rare (<1.0%), SVE Couplets were rare (<1.0%), and SVE Triplets were rare (<1.0%). Isolated VEs were occasional (2.0%, 09103), VE Couplets were rare (<1.0%, 157), and no VE Triplets were present. Ventricular Bigeminy and Trigeminy were present. 06/22/2019 Echo: CONCLUSIONS: - Exam indication: Palpitations - The left ventricle is normal in size. Left ventricular systolic function is normal. EF = 61 5% (2D 4-ch.) Grade I left ventricular diastolic dysfunction. - The right ventricle is normal in size. Right ventricular systolic function is normal. - There are no significant valvular abnormalities. - Suboptimal endocardioal definition - The patient has not had a prior echocardiographic exam for comparison. 08/06/2019 Outside Stress: IMPRESSION: Ms. Luther is a 75 year old female with a medical history significant for PVCs, asthma, breast cancer s/p lumpectomy (08/2017) and radiation, osteopenia post-menopause, bladder cancer s/p TURBT (December 2024) and now on immunotherapy who presents today for a cardiovascular medicine follow-up visit. Stable from cardiac perspective, tolerating immunotherapy for recent diagnosis of bladder cancer. Exam unremarkable. Lipids well controlled on statin therapy. Of note, BP elevated but reports white coat HTN with home systolics in the 120s-130s. Encouraged to incorporate more regular exercise to facilitate additional BP reduction as I ideally would like to see her BP < 120/80. Continue with nutrition optimization. PLAN AND RECOMMENDATIONS: - Annual lipids - Diet and exercise optimization FOLLOW UP: 1 year w/ECG CONTACT INFORMATION: Carlton Verde M.D., F.A.C.C. Co-Director, [facility] [employer] Lieutenantmarket development trainer [facility] Section of Clinical Cardiology Mi Espinoza Department of Cardiovascular Medicine, [facility] Heart, Vascular, and Thor[facility] [place], [address], Desk [place] [address] Office / documented in this encounter [facility] 03-02-2025 Note HNO ID: [id number] Author: CARLTON VERDE MD Service: ? Author Type: Physician Type: Progress Notes Filed: 03/02/2025 16:21 Note Text: Heart, Vascular and [facility] [place] Mi Espinoza Department of Cardiovascular Medicine SECTION OF CLINICAL CARDIOLOGY OUTPATIENT VISIT DATE March 02, 2025 OUTPATIENT VISIT TYPE ESTABLISHED PRIMARY CARE PHYSICIAN: Abhishek Huynh [facility] [place] [address] REFERRING PHYSICIAN: Carlton Verde [address] [place] [address] CHIEF COMPLAINT: Follow up HISTORY OF PRESENT ILLNESS: Ms. Luther is a 75 year old female with a medical history significant for PVCs, asthma, breast cancer s/p lumpectomy (08/2017) and radiation, osteopenia post-menopause, bladder cancer s/p TURBT (December 2024) and now on immunotherapy who presents today for a cardiovascular medicine follow-up visit. She was last seen on 02/19/2023 at which time she was exercising, feeling well, LDL had increased from 110 to 127 due to more fast food consumption. I advised statin initiation given her 10-year ASCVD risk score was 15.8% but she wanted to wait for a repeat lipid panel and thereafter would consider. Her TC was 208, LDL 122 so I advised starting rosuvastatin 10mg daily. Most recent lipids on 02/16/2025 showed TC 145, TG 99, HDL 61, LDL 66. Now that she is undergoing immunotherapy, she is a little tired but otherwise feels ok. 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 In terms of nutrition, she states she has raisin bran with blueberries and raisins for breakfast; lunch could be a salad or burger or macaroni salad; dinner could be anything. She states she is eating better than she was 2 years ago, not as much fast food. BP is 148/84 which she states is related to white coat syndrome. BP at home is typically 128/75 (and she has brought her machine in for calibration). PAST CARDIAC HISTORY: See HPI PAST MEDICAL HISTORY Diagnosis Date Asthma (HCC) Basal cell carcinoma 09/2024 nose Bladder cancer (HCC) Breast cancer (HCC) right s/p lumpectomy 08/2017, and radiation Macular cyst, hole, or pseudohole of retina Both eyes Osteopenia after menopause PVC (premature ventricular contraction) Shingles PAST SURGICAL HISTORY Procedure Laterality Date BREAST BIOPSY INCISIONAL RIGHT Right 07/2018 BREAST LUMPECTOMY HX Right 09/15/2018 Right NL PM/SNBx: [id number], ER/AR+, HER2 Neg, Grade 1, IDC w/tubular features; 1/2nodes COLONOSCOPY 07/2007, 01/14 nevus 1980 face. POST-CATARACT LASER SURGERY 06/26/2012 Yag Capsulotomy OS VITRECTOMY FOR MACULAR HOLE Left 06/06/2011 L eye. VITRECTOMY MECHANICAL PARS PLANA Right 02/20/2012 Pars Plana Vitrectomy ,MP, PCIOL OD SOCIAL HISTORY Social History Tobacco Use Smoking status: Never Smokeless tobacco: Never Vaping Use Vaping status: Never Used Substance Use Topics Alcohol use: No Drug use: No FAMILY HISTORY Problem Relation Age of Onset Cataract Mother other (osteopenia) Mother Osteopenia Stroke Mother Heart Father SC Lipids Father High Cholesterol other (Macular Degeneration) Maternal Grandfather Heart Attack Paternal Grandmother Heart Attack Paternal Grandfather Blood Clots Daughter Coronary Artery Disease Paternal Aunt Coronary Artery Disease Paternal Uncle ALLERGIES: ALLERGIES Allergen Reactions Cephalosporins Rash Codeine GI Upset Dust Itching Nortriptyline Intolerance Elevated blood pressure and pulse. Ragweed Doxycycline Hyclate Intolerance Reflux Pyridium [Phenazopy* Other: See Comments dizziness MEDICATIONS: LORazepam (ATIVAN) 1 mg tabletTake 0.5-1 tablets by mouth every 8 hours for 30 days.Disp: 30 tabletRfl: 0 rosuvastatin (CRESTOR) 10 mg tabletTake 1 tablet by mouth daily at bedtime.Disp: 90 tabletRfl: 3 trospium (SANCTURA) 20 mg tabletTake 1 tablet by mouth two times a day.Disp: 60 tabletRfl: 2 (Patient not taking: Reported on 03/02/2025) gabapentin (NEURONTIN) 100 mg capsuleTwo capsules (200mg) by mouth every morning.Disp: 180 capsuleRfl: 5 gabapentin (NEURONTIN) 300 mg capsuleTake 1 capsule by mouth daily at bedtime for 180 days.Disp: 30 capsuleRfl: 5 albuterol HFA (VENTOLIN HFA) 90 mcg/actuation inhalerInhale 2 Puffs as instructed every 4 hours as needed.Disp: 1 EachRfl: 1 Cholecalciferol, Vitamin D3, 125 mcg (5,000 unit) capTake 1 capsule by mouth once daily.Disp: Rfl: carboxymethylcellulose sodium (REFRESH OPHTHALMIC)Use 1 Drop in eyes as needed.Disp: Rfl: propylene glycol (SYSTANE COMPLETE OPHTHALMIC)Use 1 Drop in eyes as needed.Disp: Rfl: Azelastine HCl (OPTIVAR) 0.05 % ophthalmic solutionUse 1 Drop in both eyes twice daily as needed (allergies).Disp: 6 mLRfl: 2 psyllium husk (METAMUCIL ORAL)Take 1 teaspoonful by mouth two times a day.Disp: Rfl: calcium carbonat (more content not included)... [facility] 03-02-2025 Note Date of Procedure 03/02/2025. OCT Macula Interpretation Right Eye Findings include Negative for Intraretinal fluid, Subretinal fluid. Left Eye Findings include Epiretinal membrane; Negative for Intraretinal fluid, Subretinal fluid. Interval Change Right Eye Stable. Left Eye Stable. [facility] 03-02-2025 Note HNO ID: [id number] Author: MARIALUISA BROWN MD Service: ? 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 Visual acuity with correction is 20/25 RE and 20/20 PH LE. IOP 13/13. Anterior segment exam is significant for centered PCIOL w/ open PC Both eyes with Ruben nodule ou. Dilated fundus examination demonstrates closed holes and attached retina in both eyes occassional drusen. OCT with slightly progressive ERM OS, stable Right eye. OCT also shows mild drusen. I recommend observation. She is following with Dr. Puente for Ruben nodules. AREDS2 MVI I have confirmed and edited as necessary [...] of its relevant components. Marialuisa Brown MD [facility] 03-02-2025 History of Present illness Narrative This is a 64 year old female diagnosed upon referral with macular hole both eyes, s/p Pars plana vitrectomy Both eyes; mild dry Age related macular degeneration both eyes. Visual acuity with correction is 20/25 RE and 20/20 PH LE. IOP 13/13. Anterior segment exam is significant for centered PCIOL w/ open PC Both eyes with Ruben nodule ou. Dilated fundus examination demonstrates closed holes and attached retina in both eyes occassional drusen. OCT with slightly progressive ERM OS, stable Right eye. OCT also shows mild drusen. I recommend observation. She is following with Dr. Puente for Ruben nodules. AREDS2 MVI I have confirmed and edited as necessary [...] of its relevant components. Marialuisa Brown MD documented in this encounter [facility] 02-25-2025 Telephone encounter Note The patient has been identified by name and date of : Yes Caregiver verified no other encounters exist for this prescription request: Yes Caregiver confirmed with patient/requestor that no other refills are due, in the near future, with this provider at this time: Yes The last office visit in the department: 07/01/2024 Does the patient have a future office visit with this provider/department: Yes 07/02/2025 Requested Prescriptions Pending Prescriptions Disp Refills LORazepam (ATIVAN) 1 mg tablet 30 tablet 0 Sig: Take 0.5-1 tablets by mouth every 8 hours for 30 days. rosuvastatin (CRESTOR) 10 mg tablet 90 tablet 3 Sig: Take 1 tablet by mouth daily at bedtime. Marisela Molina RN February 25, 2025 9:30 AM [facility] 02-25-2025 Miscellaneous Notes The patient has been identified by name and date of : Yes Caregiver verified no other encounters exist for this prescription request: Yes Caregiver confirmed with patient/requestor that no other refills are due, in the near future, with this provider at this time: Yes The last office visit in the department: 07/01/2024 Does the patient have a future office visit with this provider/department: Yes 07/02/2025 Requested Prescriptions Pending Prescriptions Disp Refills LORazepam (ATIVAN) 1 mg tablet 30 tablet 0 Sig: Take 0.5-1 tablets by mouth every 8 hours for 30 days. rosuvastatin (CRESTOR) 10 mg tablet 90 tablet 3 Sig: Take 1 tablet by mouth daily at bedtime. Marisela Molina RN February 25, 2025 9:30 AM documented in this encounter [facility] 02-23-2025 Note HNO ID: [id number] Author: NIKOLE BAILEY MD Service: ? Author Type: Physician Type: Progress Notes Filed: 02/23/2025 13:51 Note Text: orders [facility] 02-23-2025 History of Present illness Narrative orders documented in this encounter [facility] 02-23-2025 History of Present illness Narrative Returned the patient s call regarding new urinary symptoms. She reports experiencing frequency and urgency since her last BCG treatment and is concerned about a possible urinary tract infection or bladder spasms. I informed the patient that an order for a urinalysis and urine culture has been placed. [facility] plans [facility]. I also advised her that I would reach out to Dr. Bailey to see if she would like to prescribe any medication for potential bladder spasms. The patient was agreeable to the plan and verbalized understanding. Xavier Tyler RN February 23, 2025 1:30 PM documented in this encounter [facility] 02-23-2025 Note HNO ID: [id number] Author: XAVIER TYLER RN Service: ? Author Type: Registered Nurse Type: Progress Notes Filed: 02/23/2025 13:36 Note Text: Returned the patient?s call regarding new urinary symptoms. She reports experiencing frequency and urgency since her last BCG treatment and is concerned about a possible urinary tract infection or bladder spasms. I informed the patient that an order for a urinalysis and urine culture has been placed. She plans to present to the [facility] to provide a urine sample. I also advised her that I would reach out to Dr. Bailey to see if she would like to prescribe any medication for potential bladder spasms. The patient was agreeable to the plan and verbalized understanding. Xavier Tyler RN February 23, 2025 1:30 PM [facility] 02-18-2025 Note HNO ID: [id number] Author: GABBI SAINZ RN Service: ? Author Type: Registered Nurse Type: Progress Notes Filed: 02/18/2025 08:58 Note Text: BLADDER INSTILLATION Patient ID with two (2) identifiers verified by: Gabbi Sainz RN Allergies reviewed and updated: Yes Medication ordered for bladder instillation: BCG Current pain intensity is: 0 on a 0-10 pain scale. Have you seen any blood in the last 24 hours: No Have you had a temperature greater than 101F in the last 24 hours: No Do you have foul smelling urine or severe burning/urgency that has worsened since the last bladder instillation treatment: No No, Proceed with BCG Any concerns about safety in the home/falls: Not at risk for falls BP 141/71, pulse 78 Start Date: 02/09/25 Treatment number: 2 of 6 Retention Time Last RX: 2 hours Symptoms Post Last RX: None Catheter Used: 14 fr. straight BCG instilled at: 0850 Drained at: Patient to urinate in 2 hours at home Residual TX: Yes 75 cc. Return to Clinic on : weekly Patient tolerated treatment well. BP 153/73, pulse 75 Gabbi Sainz RN [facility] 02-12-2025 Note HNO ID: [id number] Author: RADHA HER APRN.CNP Service: ? Author Type: Nurse Practitioner Type: Progress Notes Filed: 02/15/2025 13:23 Note Text: Chief Complaint Patient presents with: Established Patient HPI: Andre Luther is a 75 year old female who presents here today for follow up breast cancer. Per Dr. Deng's previous note: H/o PVCs, GERD and osteoarthritis of the left knee. Underwent ultrasound-guided core needle biopsy on 08/28/2018. Pathology: Right breast, ultrasound-guided needle core biopsy - Invasive ductal carcinoma, nuclear grade 1. - Estrogen receptor is positive greater than 95% nuclei staining, outside slide reviewed. - Progesterone receptor is positive 80% of nuclei staining, outside slide reviewed. - HER2 by immunohistochemistry is negative +0, outside slide reviewed. Underwent a right partial mastectomy with sentinel lymph node biopsy on 09/15/2018. Pathology: 1. Right axillary sentinel lymph node #1, resection (A) - Micrometastatic adenocarcinoma present in one of two lymph nodes (1/2). See comment. 2. Right breast partial mastectomy (B) - Invasive ductal carcinoma with tubular features, histologic grade 1. Prior biopsy site and clip are identified. See synoptic template. 3. Right breast deep, inferior, superior, medial, anterior, lateral margins, resection (C-H) - Fibrofatty breast tissue with no tumor seen. Oncotype DX recurrence score was 14. Previous therapy: Right partial mastectomy with sentinel node dissection (Dr. Reinoso; September 15, 2018, 1.5 cm , 1 of 2 lymph nodes positive with micro mets (1.1 mm)) Radiation therapy (Dr. Baxter, completed therapy on November 19, 2018) Patient declined endocrine therapy I have bladder cancer. Pt. was seen locally initially. She is now being treated at [facility]. Appetite:Really good. Wt. down 2# since last visit. Energy level:Good. Denies fevers or recent illness. Resp:denies cough or sob h/o asthma/seasonal allergies Cardiac:denies chest pain/palpitations GI:denies abd pain, n/v, moving bowels regularly :denies dysuria/hematuria Extrem:denies pain Endo:occ. hot flashes Neuro:denies symptoms of neuropathy Skin:denies rashes Heme:denies bleeding The ROS is otherwise negative. Past medical history, appointments, medications, allergies reviewed. No changes. EXAM: BP 141/84 Pulse 74 Temp 36.8 ?C (98.2 ?F) (Oral) Wt 66 kg (145 lb 8.1 oz) SpO2 97% BMI 27.49 kg/m? APPEARANCE Well appearing, alert, in no acute distress, well-hydrated, well nourished. HEART RRR with normal S1 and S2, no murmurs LUNG clear to auscultation BREAST FEMALE no mass/nodule b/l, R upper tenderness-stable LYMPH NODES No cervical lymphadenopathy, No supraclavicular lymphadenopathy, and No axillary lymphadenopathy. ABDOMEN bowel sounds normoactive, soft, non-tender EXTREMITIES No edema NEURO Awake, alert and oriented x 3, Normal gait, and No involuntary motions. SKIN Skin color, texture, turgor normal, no suspicious rashes or lesions ASSESSMENT/PLAN: 1. Encounter for follow-up surveillance of breast cancer - ICD9: V67.9, V10.3, ICD10: Z08, Z85.3 pT1c pN1(mi) ER/AR positive (95% and 80% respectively), HER-2 negative (0 on IHC) infiltrating ductal carcinoma the right breast. Oncotype current score 14. Received adjuvant radiation to the breast. Declined adjuvant endocrine therapy. - Chronic intermittent lancinating pain right axilla into superior portion of the breast. Stable. - No concerning findings on exam. - Reviewed mammogram with pt. - Continue neurontin for hot flashes. - Continue follow up with PCP for routine care. - Continue follow up at main/urology for bladder cancer. - Mammogram due in 2024. - Follow up after above. - Pt. aware to call office with any questions/concerns. The patient indicates understanding of these issues and agrees with the plan. All documentation from previous visit of 07/16/24-Dr. Deng/myself was copied and pasted, documentation has been reviewed and edited as necessary for today's visit. Radha Her APRN.[facility] 02-12-2025 History of Present illness Narrative Chief Complaint Patient presents with: Established Patient HPI: Andre Luther is a 75 year old female who presents here today for follow up breast cancer. Per Dr. Deng's previous note: H/o PVCs, GERD and osteoarthritis of the left knee. Underwent ultrasound-guided core needle biopsy on 08/28/2018. Pathology: Right breast, ultrasound-guided needle core biopsy - Invasive ductal carcinoma, nuclear grade 1. - Estrogen receptor is positive greater than 95% nuclei staining, outside slide reviewed. - Progesterone receptor is positive 80% of nuclei staining, outside slide reviewed. - HER2 by immunohistochemistry is negative +0, outside slide reviewed. Underwent a right partial mastectomy with sentinel lymph node biopsy on 09/15/2018. Pathology: 1. Right axillary sentinel lymph node #1, resection (A) - Micrometastatic adenocarcinoma present in one of two lymph nodes (1/2). See comment. 2. Right breast partial mastectomy (B) - Invasive ductal carcinoma with tubular features, histologic grade 1. Prior biopsy site and clip are identified. See synoptic template. 3. Right breast deep, inferior, superior, medial, anterior, lateral margins, resection (C-H) - Fibrofatty breast tissue with no tumor seen. Oncotype DX recurrence score was 14. Previous therapy: Right partial mastectomy with sentinel node dissection (Dr. Reinoso; September 15, 2018, 1.5 cm , 1 of 2 lymph nodes positive with micro mets (1.1 mm)) Radiation therapy (Dr. Baxter, completed therapy on November 19, 2018) Patient declined endocrine therapy I have bladder cancer. Pt. was seen locally initially. She is now being treated at [facility]. Appetite:Really good. Wt. down 2# since last visit. Energy level:Good. Denies fevers or recent illness. Resp:denies cough or sob h/o asthma/seasonal allergies Cardiac:denies chest pain/palpitations GI:denies abd pain, n/v, moving bowels regularly :denies dysuria/hematuria Extrem:denies pain Endo:occ. hot flashes Neuro:denies symptoms of neuropathy Skin:denies rashes Heme:denies bleeding The ROS is otherwise negative. Past medical history, appointments, medications, allergies reviewed. No changes. EXAM: BP 141/84 Pulse 74 Temp 36.8 C (98.2 F) (Oral) Wt 66 kg (145 lb 8.1 oz) SpO2 97% BMI 27.49 kg/m APPEARANCE Well appearing, alert, in no acute distress, well-hydrated, well nourished. HEART RRR with normal S1 and S2, no murmurs LUNG clear to auscultation BREAST FEMALE no mass/nodule b/l, R upper tenderness-stable LYMPH NODES No cervical lymphadenopathy, No supraclavicular lymphadenopathy, and No axillary lymphadenopathy. ABDOMEN bowel sounds normoactive, soft, non-tender EXTREMITIES No edema NEURO Awake, alert and oriented x 3, Normal gait, and No involuntary motions. SKIN Skin color, texture, turgor normal, no suspicious rashes or lesions ASSESSMENT/PLAN: 1. Encounter for follow-up surveillance of breast cancer - ICD9: V67.9, V10.3, ICD10: Z08, Z85.3 pT1c pN1(mi) ER/AR positive (95% and 80% respectively), HER-2 negative (0 on IHC) infiltrating ductal carcinoma the right breast. Oncotype current score 14. Received adjuvant radiation to the breast. Declined adjuvant endocrine therapy. - Chronic intermittent lancinating pain right axilla into superior portion of the breast. Stable. - No concerning findings on exam. - Reviewed mammogram with pt. - Continue neurontin for hot flashes. - Continue follow up with PCP for routine care. - Continue follow up at main/urology for bladder cancer. - Mammogram due in 2024. - Follow up after above. - Pt. aware to call office with any questions/concerns. The patient indicates understanding of these issues and agrees with the plan. All documentation from previous visit of 07/16/24-Dr. Deng/myself was copied and pasted, documentation has been reviewed and edited as necessary for today's visit. Radha Her APRN.[facility] documented in this encounter [facility] 02-09-2025 Note HNO ID: [id number] Author: ANDREAS BLACKWELL RN Service: ? Author Type: Registered Nurse Type: Progress Notes Filed: 02/09/2025 09:41 Note Text: AMBULATORY PATIENT EDUCATION NOTE READINESS TO LEARN COGNITIVE ABILITY: Alert and oriented MOTIVATION TO LEARN: Interested FAMILY SUPPORT: High - Very involved in pt care INSTRUCTION PROVIDED TO: Patient PATIENT LEARNS BEST BY: Individual Instruction Written Instruction - Hand-outs Verbal Instruction FACTORS AFFECTING LEARNING: None PHYSICAL LIMITATIONS AFFECTING LEARNING: None LEARNING RESPONSE DIAGNOSIS: Bladder Cancer EDUCATION TOPIC/ TEACHING POINTS: Procedure / Surgery: Pre-op Teaching: Logistics / Protocols / Complication Prevention METHOD OF INSTRUCTION: Individual instruction Written instruction/Handouts Verbal instruction PATIENT / FAMILY RESPONSE: Verbalizes understanding of: CHEMOTHERAPY-Regimen, toxicity and side effects INFECTION MANAGEMENT-Signs and symptoms of an infection and importance of contacting the physician MEDICAL REGIMEN-Importance of following prescribed medical regimen PAIN MANAGEMENT-Effective strategies to manage pain in addition to pain medication RISK FACTORS-Unique risk factors related to their disease FOLLOW-UP PLAN: Complete - No need for follow-up SUPPLEMENTAL MATERIAL: BCG worksheet REFERRAL (RECOMMENDATION): None Electronically Signed By Andreas Blackwell RN in Department: UROLOGY BLADDER INSTILLATION Patient ID with two (2) identifiers verified by: Andreas Blackwell RN Allergies reviewed and updated: Yes Medication ordered for bladder instillation: BCG Current pain intensity is: 0 on a 0-10 pain scale. Have you seen any blood in the last 24 hours: No Have you had a temperature greater than 101F in the last 24 hours: No Do you have foul smelling urine or severe burning/urgency that has worsened since the last bladder instillation treatment: No No, Proceed with BCG Any concerns about safety in the home/falls: Not at risk for falls Start Date: 02/09/2025 Treatment number: 1 of 6 FIRST TREATMENT Catheter Used: 14 fr. Straight, inserted with sterile technique, return residual clear yellow urine, 50 cc. BCG instilled at: 0924 Urinate at home at: 1124 Return to Clinic on : next week Patient tolerated treatment well. Andreas Blackwell RN [facility] 02-09-2025 History of Present illness Narrative AMBULATORY PATIENT EDUCATION NOTE READINESS TO LEARN COGNITIVE ABILITY: Alert and oriented MOTIVATION TO LEARN: Interested FAMILY SUPPORT: High - Very involved in pt care INSTRUCTION PROVIDED TO: Patient PATIENT LEARNS BEST BY: Individual Instruction Written Instruction - Hand-outs Verbal Instruction FACTORS AFFECTING LEARNING: None PHYSICAL LIMITATIONS AFFECTING LEARNING: None LEARNING RESPONSE DIAGNOSIS: Bladder Cancer EDUCATION TOPIC/ TEACHING POINTS: Procedure / Surgery: Pre-op Teaching: Logistics / Protocols / Complication Prevention METHOD OF INSTRUCTION: Individual instruction Written instruction/Handouts Verbal instruction PATIENT / FAMILY RESPONSE: Verbalizes understanding of: CHEMOTHERAPY-Regimen, toxicity and side effects INFECTION MANAGEMENT-Signs and symptoms of an infection and importance of contacting the physician MEDICAL REGIMEN-Importance of following prescribed medical regimen PAIN MANAGEMENT-Effective strategies to manage pain in addition to pain medication RISK FACTORS-Unique risk factors related to their disease FOLLOW-UP PLAN: Complete - No need for follow-up SUPPLEMENTAL MATERIAL: BCG worksheet REFERRAL (RECOMMENDATION): None Electronically Signed By Andreas Blackwell RN in Department: UROLOGY BLADDER INSTILLATION Patient ID with two (2) identifiers verified by: Andreas Blackwell RN Allergies reviewed and updated: Yes Medication ordered for bladder instillation: BCG Current pain intensity is: 0 on a 0-10 pain scale. Have you seen any blood in the last 24 hours: No Have you had a temperature greater than 101F in the last 24 hours: No Do you have foul smelling urine or severe burning/urgency that has worsened since the last bladder instillation treatment: No No, Proceed with BCG Any concerns about safety in the home/falls: Not at risk for falls Start Date: 02/09/2025 Treatment number: 1 of 6 FIRST TREATMENT Catheter Used: 14 fr. Straight, inserted with sterile technique, return residual clear yellow urine, 50 cc. BCG instilled at: 0924 Urinate at home at: 1124 Return to Clinic on : next week Patient tolerated treatment well. Andreas Blackwell RN documented in this encounter [facility] 01-29-2025 Telephone encounter Note Spoke to Mrs. Luther. Experiencing urinary urgency and frequency x 5 days. Denies fever, chills, nausea, or vomiting. Urine culture ordered. Advised that it takes 2-3 days to receive results. Patient advised to push fluids but cut back 2-3 hours before bedtime to cut down on the amount of time they get up during the night. Advised to go to the nearest ER if she develops fever, chills, nausea, or vomiting. Patient verbalized understanding. All questions answered. Tika Morel RN Triage Nurse Department of Urology [facility] 01-29-2025 Miscellaneous Notes Spoke to Mrs. Luther. Experiencing urinary urgency and frequency x 5 days. Denies fever, chills, nausea, or vomiting. Urine culture ordered. Advised that it takes 2-3 days to receive results. Patient advised to push fluids but cut back 2-3 hours before bedtime to cut down on the amount of time they get up during the night. Advised to go to the nearest ER if she develops fever, chills, nausea, or vomiting. Patient verbalized understanding. All questions answered. Tika Morel RN Triage Nurse Department of Urology [facility] documented in this encounter [facility] 01-21-2025 Note HNO ID: [id number] Author: NIKOLE BAILEY MD Service: ? Author Type: Physician Type: Progress Notes Filed: 01/21/2025 11:57 Note Text: UROLOGIC INITIAL EVALUATION Date Path Current Treatment 01.14.25 Non-invasive papillary urothelial carcinoma, high-grade. TURBT PROBLEM LIST: 1. ACTIVE PROBLEM LIST Primary Osteoarthritis of Left Knee Mild Intermittent Asthma Without Complication (Hcc) Osteopenia Malignant Neoplasm of Upper-Outer Quadrant of Right Breast in Female, Estrogen Receptor Positive (Hcc) Gerd Without Esophagitis Elevated Blood Pressure Reading Without Diagnosis of Hypertension Pvc (Premature Ventricular Contraction) Abnormal Stress Test Allergy Rectocele Cystocele, Midline Personal History of Malignant Neoplasm of Breast HISTORY OF PRESENT ILLNESS: Andre Luther is a 74 year old female who was first seen on 01.06.25 with new diagnosis of bladder mass. She is a very pleasant 74 yo female, who is active, and well, here with her . She is a never smoker, and no occupational exposure. 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 She denies any second hand exposure. She had a one time episode of hematuria, prompting an ER visit on 12.22.24, at which point there was a concern for a mass vs clot in the bladder. This was adjacent to the left UVJ. Patient still has uterus and adnexa per scan, without overt abnormalities. This was a non contrasted scan She did undergo a cystoscopy with an [facility] urologist who noted that this was a papillary mass likely malignancy and recommended TURBT> They are here to establish care She is otherwise healthy with GERD, and HTN, without any strong family history of malignancy She has history of breast cancer 1990s tx with lumpectomy and xrt, without recurrence Date Interval history 01.20.25 TaHG doing well after surgery PAST MEDICAL HISTORY: PAST MEDICAL HISTORY Diagnosis Date Asthma (HCC) Basal cell carcinoma 09/2024 nose Breast cancer (HCC) right s/p lumpectomy 08/2017, and radiation Macular cyst, hole, or pseudohole of retina Both eyes Osteopenia after menopause PVC (premature ventricular contraction) Shingles PAST SURGICAL HISTORY: PAST SURGICAL HISTORY Procedure Laterality Date BREAST BIOPSY INCISIONAL RIGHT Right 07/2018 BREAST LUMPECTOMY HX Right 09/15/2018 Right NL PM/SNBx: [id number], ER/AR+, HER2 Neg, Grade 1, IDC w/tubular features; 1/2nodes COLONOSCOPY 07/2007, 01/14 nevus 1980 face. POST-CATARACT LASER SURGERY 06/26/2012 Yag Capsulotomy OS VITRECTOMY FOR MACULAR HOLE Left 06/06/2011 L eye. VITRECTOMY MECHANICAL PARS PLANA Right 02/20/2012 [place] Vitrectomy ,MP, PCIOL OD ALLERGIES: ALLERGIES Allergen Reactions Cephalosporins Rash Codeine GI Upset Dust Itching Nortriptyline Intolerance Elevated blood pressure and pulse. Ragweed Doxycycline Hyclate Intolerance Reflux Pyridium [Phenazopy* Other: See Comments dizziness MEDICATIONS: Current Outpatient Medications on File Prior to Visit Medication Sig gabapentin (NEURONTIN) 100 mg capsule Two capsules (200mg) by mouth every morning. gabapentin (NEURONTIN) 300 mg capsule Take 1 capsule by mouth daily at bedtime for 180 days. albuterol HFA (VENTOLIN HFA) 90 mcg/actuation inhaler Inhale 2 Puffs as instructed every 4 hours as needed. rosuvastatin (CRESTOR) 10 mg tablet Take 1 tablet by mouth daily at bedtime. etodolac (LODINE) 400 mg tablet Take 1 tablet by mouth every other day. Cholecalciferol, Vitamin D3, 125 mcg (5,000 unit) cap Take 1 capsule by mouth once daily. ipratropium bromide (ATROVENT) 42 mcg (0.06 %) nasal spray Use 2 Sprays in the nose four times daily. prn carboxymethylcellulose sodium (REFRESH OPHTHALMIC) Use 1 Drop in eyes as needed. propylene glycol (SYSTANE COMPLETE OPHTHALMIC) Use 1 Drop in eyes as needed. Azelastine HCl (OPTIVAR) 0.05 % ophthalmic solution Use 1 Drop in both eyes twice daily as needed (allergies). famotidine (PEPCID ORAL) Take 1 tablet by mouth twice daily. psyllium husk (METAMUCIL ORAL) Take 1 teaspoonful by mouth two times a day. calcium carbonate (CALCIUM 600 ORAL) Take 600 mg by mouth once daily. vit A,C,R-Ebaz-Wpvlaz (PRESERVISION AREDS) 7,160-113-100 wrvc-zy-csgu tab Take 1 tablet by mouth twice daily. Cimx-Ubzw-VHY#7-W-Owlw-Trevon-Bor (OSTEO BI-FLEX) 750-625-30 mg Tab Take 1 tablet by mouth twice daily. No current facility-administered medications on file prior to visit. SOCIAL HISTORY: Patient reports that she has never smoked. She has never used smokeless tobacco. She reports that she does not drink alcohol and does not use drugs. Social History Tobacco Use Smoking status: Never Smokeless tobacco: Never Vaping Use Vaping status: Never Used Substance Use Topics Alcohol use: No Drug use: No FAMILY HISTORY: FAMILY HISTORY Problem Relation Age of Onset Cataract Mother other (osteopenia) Mother Osteopenia (more content not included)... [facility] 01-20-2025 Note Patient Outreach (UR OLMN) -------- ANDRE LUTHER ([id number]) 1950 F Date Time Provider Department 01/20/25 NIKOLE BAILEY During your visit today, we recorded the following information about you: Allergies As of Date: 01/20/2025 Noted Allergy Reaction CEPHALOSPORINS 01/19/2008 2 - Rash CODEINE 01/10/2007 8 - GI Upset DUST 01/13/2007 9 - Itching NORTRIPTYLINE 10/24/2020 5 - Intolerance Comments: Elevated blood pressure and pulse. RAGWEED 01/13/2007 DOXYCYCLINE HYCLATE 04/01/2018 5 - Intolerance Comments: Reflux PYRIDIUM (PHENAZOPYRIDINE) 09/03/2019 14 - Other: See Comments Comments: dizziness Date Reviewed: 01/20/2025 Reviewed by: Phuong Norton MA - Fully Assessed Visit Diagnosis:Screening for genitourinary condition [Z13.89] Order(s):UA DIP, URINE (POC) [[id number]] Order #: [id number] FUTURE Prescriptions as of 01/25/2025 - gabapentin (NEURONTIN) 100 mg capsule Two capsules (200mg) by mouth every morning. - gabapentin (NEURONTIN) 300 mg capsule Take 1 capsule by mouth daily at bedtime for 180 days. - albuterol HFA (VENTOLIN HFA) 90 mcg/actuation inhaler Inhale 2 Puffs as instructed every 4 hours as needed. - rosuvastatin (CRESTOR) 10 mg tablet Take 1 tablet by mouth daily at bedtime. - etodolac (LODINE) 400 mg tablet Take 1 tablet by mouth every other day. - Cholecalciferol, Vitamin D3, 125 mcg (5,000 unit) cap Take 1 capsule by mouth once daily. - ipratropium bromide (ATROVENT) 42 mcg (0.06 %) nasal spray Use 2 Sprays in the nose four times daily. prn - carboxymethylcellulose sodium (REFRESH OPHTHALMIC) Use 1 Drop in eyes as needed. - propylene glycol (SYSTANE COMPLETE OPHTHALMIC) Use 1 Drop in eyes as needed. - Azelastine HCl (OPTIVAR) 0.05 % ophthalmic solution Use 1 Drop in both eyes twice daily as needed (allergies). - famotidine (PEPCID ORAL) Take 1 tablet by mouth twice daily. - psyllium husk (METAMUCIL ORAL) Take 1 teaspoonful by mouth two times a day. - calcium carbonate (CALCIUM 600 ORAL) Take 600 mg by mouth once daily. - vit A,C,M-Hcsu-Iiaggt (PRESERVISION AREDS) 7,160-113-100 jquz-bo-typm tab Take 1 tablet by mouth twice daily. - Clhg-Luno-WRY#9-M-Sarp-Trevon-Bor (OSTEO BI-FLEX) 750-625-30 mg Tab Take 1 tablet by mouth twice daily. Meds Comments as of 04/01/2018: Preservision bid Problem List As Of Date 01/20/2025 Noted Resolved Solar Lentigines [L81.4] 08/07/2011 06/22/2014 Seborrheic Keratosis [L82.1] 08/07/2011 06/22/2014 Nobles Angiomas [D18.01] 08/07/2011 06/22/2014 Cutaneous skin tags [L91.8] 08/07/2011 06/22/2014 Bilateral pseudophakia [Z96.1] 04/01/2012 09/20/2017 Pain in joint, lower leg [M25.569] 05/06/2012 09/20/2017 PCO (posterior capsular opacification), left [H*06/26/2012 09/20/2017 After-cataract, obscuring vision [H26.499] 04/20/2014 09/20/2017 Postmenopausal atrophic vaginitis [N95.2] 06/22/2014 09/08/2019 Primary osteoarthritis of left knee [M17.12] 08/09/2015 Mild intermittent asthma without complication [*08/09/2015 Anal or rectal pain [K62.89] 02/08/2017 09/20/2017 Osteopenia [M85.80] 07/28/2018 Malignant neoplasm of upper-outer quadrant of r*09/05/2018 GERD without esophagitis [K21.9] 06/11/2019 Elevated blood pressure reading without diagnos*08/18/2019 PVC (premature ventricular contraction) [I49.3] 09/03/2019 Abnormal stress test [R94.39] 09/03/2019 Allergy [T78.40XA] 04/26/2021 Rectocele [N81.6] 03/22/2023 Cystocele, midline [N81.11] 03/22/2023 Muscle weakness [M62.81] 03/22/2023 12/23/2023 Personal history of malignant neoplasm of breas*08/17/2024 Encounter Status:Closed by EPIC, PRODUSER on 01/25/25 [facility] 01-14-2025 Note HNO ID: [id number] Author: SELVIN POLLOCK APRN.BOW MAKING MACHINE OPERATOR Service: ? 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 Staffing Anesthesiologist: Leyda Clayton MD BOW MAKING MACHINE OPERATOR: Selvin Pollock APRN.BOW MAKING MACHINE OPERATOR Performed by: BOW MAKING MACHINE OPERATOR and anesthesiologist Indications and Patient Condition Indications for airway management: anesthesia Preoxygenated: yes anesthesia circuit Difficult Mask: No Final Airway Details Final airway type: endotracheal airway Final Endotracheal Airway: ETT Successful intubation technique: video laryngoscopy Devices used: Balbuena Blade size: #3 ETT size (mm): 7.0 Placement verified by: capnometry Cormack-Lehane Classification: grade I - full view of glottis Number of attempts at approach: 1 Airway not difficult SIGNATURE: Selvin Pollock APRN.BOW MAKING MACHINE OPERATOR PATIENT NAME: Andre Luther DATE: January 14, 2025 TIME: 2:27 PM CSN: [id number] [facility] 01-14-2025 Note HNO ID: [id number] Author: ALEJANDRO MARQUIS PA Service: ? Author Type: Physician Voice Over Artist Type: Progress Notes Filed: 01/14/2025 11:06 Note Text: UROLOGY SURGICAL HANDP SERVICE DATE: 01/14/2025 SERVICE TIME: 11:00 AM REFERRING PROVIDER: No referring provider defined for this encounter. PCP: Abhishek Huynh MD GENDER: SUBJECTIVE CHIEF COMPLAINT: Pre-op exam HISTORY OF PRESENT ILLNESS: Ms. Luther is a 74 year old female who presents for pre-op hANDP. She is scheduled for TURBT with Dr. Bailey on FUNCTIONAL STATUS: Walk a block or two on level ground (2.75 METs) Do moderate work around the house such as vacuuming, sweeping floors, or carrying in groceries (3.50 METs) Climb a flight of stairs or walk up a hill (5.50 METs) Participate in moderate recreational activities, such as golf, bowling, dancing, doubles tennis, or throwing a baseball or football (6.00 METs) Do heavy work around the house, such as scrubbing floors, lifting or moving heavy furniture (8.00 METs) No chest pain or SOB with above activtieis PAST MEDICAL HISTORY Diagnosis Date Asthma (HCC) Basal cell carcinoma 09/2024 nose Breast cancer (HCC) right s/p lumpectomy 08/2017, and radiation Macular cyst, hole, or pseudohole of retina Both eyes Osteopenia after menopause PVC (premature ventricular contraction) Shingles PAST SURGICAL HISTORY Procedure Laterality Date BREAST BIOPSY INCISIONAL RIGHT Right 07/2018 BREAST LUMPECTOMY HX Right 09/15/2018 Right NL PM/SNBx: [id number], ER/AR+, HER2 Neg, Grade 1, IDC w/tubular features; 1/2nodes COLONOSCOPY 07/2007, 01/14 nevus 1980 face. POST-CATARACT LASER SURGERY 06/26/2012 Yag Capsulotomy OS VITRECTOMY FOR MACULAR HOLE Left 06/06/2011 L eye. VITRECTOMY MECHANICAL PARS PLANA Right 02/20/2012 [place] Vitrectomy ,MP, PCIOL OD FAMILY HISTORY Problem Relation Age of Onset Cataract Mother other (osteopenia) Mother Osteopenia Stroke Mother Heart Father SC Lipids Father High Cholesterol other (Macular Degeneration) Maternal Grandfather Heart Attack Paternal Grandmother Heart Attack Paternal Grandfather Blood Clots Daughter Coronary Artery Disease Paternal Aunt Coronary Artery Disease Paternal Uncle Social History Tobacco Use Smoking status: Never Smokeless tobacco: Never Vaping Use Vaping status: Never Used Substance Use Topics Alcohol use: No Drug use: No REVIEW OF SYSTEMS: General: General: Well developed, well nourished. No acute distress HEENT: Negative for sore throat, difficulty swallowing. Negative for frequent or significant headaches, changes in vision or hearing. Cardiovascular: No history of cardiovascular symptoms or problems. No history of angina, CHF, SC, cardiac surgery of stents. Respiratory: Negative for current cough, dyspnea. No hx of pneumonia in the past six weeks Gastrointestinal: No history of PUD, abd pain, difficulty swallowing, GI bleed. +hx of GERD Renal: Negative for renal failure and No history of dialysis Musculoskeletal: Negative for joint pain or swelling, back pain or muscle pain. +arthritis Skin: Negative for lesions, rash and itching. Psychological: No history of psychiatric symptoms or problems. Neurologic: No history of TIA's, stroke, TIMBER CRUISER tumor, impaired sensorium, hemiplegia or paraplegia No neurological symptoms or problems. Hematology/Oncology: No history of bleeding or clotting disorder. Pt is not taking anti-coagulation or platelet medications. No history of hematological symptoms or problems. Endocrine: No history of endocrinological symptoms or problems No history of DM; has not taken steroids w/in past 30 days. Negative for excessive sweating, thirst or hunger PHYSICAL EXAM: General Appearance/ Constitutional: Well developed, well nourished, and in no apparent distress Head and Neck normal, no jugular venous extension, no thyromegaly, and no palpable mass Eyes: Pupils are equally round and reactive to light. Extraocular movements are intact. Respiratory: Clear to auscultation AND percussion bilaterally Cardiovascular: Normal, Regular rate and rhythm, and No murmurs S1 and S2 present GI: Soft, Non-tender, No masses, hepatosplenomegaly, and No lymphadenopathy Extremities: Radial and pedal pulses +2, no edema, extremities WNL Back: Normal back and mobility Neurological: Normal cognition and motor skills. Skin: Color, texture, turgor normal. VITALS: BP 156/90 (BP Site: Left Arm, BP Position: Sitting, BP Cuff Size: Regular Adult) Pulse 82 Ht 156.2 cm (5' 1.5) Wt 65 kg (143 lb 4.8 oz) BMI 26.64 kg/m? ALLERGIES: ALLERGIES Allergen Reactions Cephalosporins Rash Codeine GI Upset Dust Itching Nortriptyline Intolerance Elevated blood pressure and pulse. Ragweed Doxycycline Hyclate Intolerance Reflux Pyridium [Phenazopy* Other: See Comments dizziness LABS: BUN (mg/dL) Date Value 01/07/2025 1 (more content not included)... [facility] 01-14-2025 History of Present illness Narrative UROLOGY SURGICAL H&P SERVICE DATE: 01/14/2025 SERVICE TIME: 11:00 AM REFERRING PROVIDER: No referring provider defined for this encounter. PCP: Abhishek Huynh MD GENDER: SUBJECTIVE CHIEF COMPLAINT: Pre-op exam HISTORY OF PRESENT ILLNESS: Ms. Luther is a 74 year old female who presents for pre-op h&P. She is scheduled for TURBT with Dr. Bailey on FUNCTIONAL STATUS: Walk a block or two on level ground (2.75 METs) Do moderate work around the house such as vacuuming, sweeping floors, or carrying in groceries (3.50 METs) Climb a flight of stairs or walk up a hill (5.50 METs) Participate in moderate recreational activities, such as golf, bowling, dancing, doubles tennis, or throwing a baseball or football (6.00 METs) Do heavy work around the house, such as scrubbing floors, lifting or moving heavy furniture (8.00 METs) No chest pain or SOB with above activtieis PAST MEDICAL HISTORY Diagnosis Date Asthma (HCC) Basal cell carcinoma 09/2024 nose Breast cancer (HCC) right s/p lumpectomy 08/2017, and radiation Macular cyst, hole, or pseudohole of retina Both eyes Osteopenia after menopause PVC (premature ventricular contraction) Shingles PAST SURGICAL HISTORY Procedure Laterality Date BREAST BIOPSY INCISIONAL RIGHT Right 07/2018 BREAST LUMPECTOMY HX Right 09/15/2018 Right NL PM/SNBx: [id number], ER/AR+, HER2 Neg, Grade 1, IDC w/tubular features; 1/2nodes COLONOSCOPY 07/2007, 01/14 nevus 1980 face. POST-CATARACT LASER SURGERY 06/26/2012 Yag Capsulotomy OS VITRECTOMY FOR MACULAR HOLE Left 06/06/2011 L eye. VITRECTOMY MECHANICAL PARS PLANA Right 02/20/2012 [place] Vitrectomy ,MP, PCIOL OD FAMILY HISTORY Problem Relation Age of Onset Cataract Mother other (osteopenia) Mother Osteopenia Stroke Mother Heart Father SC Lipids Father High Cholesterol other (Macular Degeneration) Maternal Grandfather Heart Attack Paternal Grandmother Heart Attack Paternal Grandfather Blood Clots Daughter Coronary Artery Disease Paternal Aunt Coronary Artery Disease Paternal Uncle Social History Tobacco Use Smoking status: Never Smokeless tobacco: Never Vaping Use Vaping status: Never Used Substance Use Topics Alcohol use: No Drug use: No REVIEW OF SYSTEMS: General: General: Well developed, well nourished. No acute distress HEENT: Negative for sore throat, difficulty swallowing. Negative for frequent or significant headaches, changes in vision or hearing. Cardiovascular: No history of cardiovascular symptoms or problems. No history of angina, CHF, SC, cardiac surgery of stents. Respiratory: Negative for current cough, dyspnea. No hx of pneumonia in the past six weeks Gastrointestinal: No history of PUD, abd pain, difficulty swallowing, GI bleed. +hx of GERD Renal: Negative for renal failure and No history of dialysis Musculoskeletal: Negative for joint pain or swelling, back pain or muscle pain. +arthritis Skin: Negative for lesions, rash and itching. Psychological: No history of psychiatric symptoms or problems. Neurologic: No history of TIA's, stroke, TIMBER CRUISER tumor, impaired sensorium, hemiplegia or paraplegia No neurological symptoms or problems. Hematology/Oncology: No history of bleeding or clotting disorder. Pt is not taking anti-coagulation or platelet medications. No history of hematological symptoms or problems. Endocrine: No history of endocrinological symptoms or problems No history of DM; has not taken steroids w/in past 30 days. Negative for excessive sweating, thirst or hunger PHYSICAL EXAM: General Appearance/ Constitutional: Well developed, well nourished, and in no apparent distress Head and Neck normal, no jugular venous extension, no thyromegaly, and no palpable mass Eyes: Pupils are equally round and reactive to light. Extraocular movements are intact. Respiratory: Clear to auscultation & percussion bilaterally Cardiovascular: Normal, Regular rate and rhythm, and No murmurs S1 and S2 present GI: Soft, Non-tender, No masses, hepatosplenomegaly, and No lymphadenopathy Extremities: Radial and pedal pulses +2, no edema, extremities WNL Back: Normal back and mobility Neurological: Normal cognition and motor skills. Skin: Color, texture, turgor normal. VITALS: BP 156/90 (BP Site: Left Arm, BP Position: Sitting, BP Cuff Size: Regular Adult) Pulse 82 Ht 156.2 cm (5' 1.5) Wt 65 kg (143 lb 4.8 oz) BMI 26.64 kg/m ALLERGIES: ALLERGIES Allergen Reactions Cephalosporins Rash Codeine GI Upset Dust Itching Nortriptyline Intolerance Elevated blood pressure and pulse. Ragweed Doxycycline Hyclate Intolerance Reflux Pyridium [Phenazopy* Other: See Comments dizziness LABS: BUN (mg/dL) Date Value 01/07/2025 13 09/03/2023 13 09/07/2022 8 10/17/2020 16 06/23/2020 14 06/11/2019 24 10/21/2018 16 09/05/2018 16 Creatinine (mg/dL) Date Value 01/07/2025 0.80 09/03/2023 0.74 09/07/2022 0.77 10/17/2020 0.85 06/23/2020 0.79 06/11/2019 0.70 10/21/2018 0.70 09/05/2018 0.51 Creatinine (POCT) (mg/dL) Date Value 09/05/2018 0.80 No results found for: PSA Glucose, Urine Date Value 01/07/2025 Negative 10/17/2020 Negative mg/dL Bilirubin, Urine (no units) Date Value 01/07/2025 Negative 10/17/2020 Negative Ketones, Urine (no units) Date Value 01/07/2025 Negative 10/17/2020 Negative Specific [place], Ur (no units) Date Value 01/07/2025 1.015 10/17/2020 1.019 Hemoglobin/Blood,Ur Date Value 01/07/2025 Negative 10/17/2020 Negative pH, Urine (no units) Date Value 01/07/2025 7.5 10/17/2020 6.0 Protein, Urine (no units) Date Value 01/07/2025 Negative 10/17/2020 Negative Nitrites (no units) Date Value 01/07/2025 Negative 10/17/2020 Negative Leukocytes (no units) Date Value 02/09/2014 NEG WBC, Urine Date Value 01/07/2025 0-5 /HPF 10/17/2020 0-5 /HPF Color (no units) Date Value 01/07/2025 Yellow 10/17/2020 Light Yellow (A) Clarity (no units) Date Value 01/07/2025 Clear 10/17/2020 Clear MEDICATIONS: (Not in a hospital admission) Current Outpatient Medications Medication Sig gabapentin (NEURONTIN) 100 mg capsule Two capsules (200mg) by mouth every morning. gabapentin (NEURONTIN) 300 mg capsule Take 1 capsule by mouth daily at bedtime for 180 days. albuterol HFA (VENTOLIN HFA) 90 mcg/actuation inhaler Inhale 2 Puffs as instructed every 4 hours as needed. rosuvastatin (CRESTOR) 10 mg tablet Take 1 tablet by mouth daily at bedtime. etodolac (LODINE) 400 mg tablet Take 1 tablet by mouth every other day. Cholecalciferol, Vitamin D3, 125 mcg (5,000 unit) cap Take 1 capsule by mouth once daily. ipratropium bromide (ATROVENT) 42 mcg (0.06 %) nasal spray Use 2 Sprays in the nose four times daily. prn carboxymethylcellulose sodium (REFRESH OPHTHALMIC) Use 1 Drop in eyes as needed. propylene glycol (SYSTANE COMPLETE OPHTHALMIC) Use 1 Drop in eyes as needed. Azelastine HCl (OPTIVAR) 0.05 % ophthalmic solution Use 1 Drop in both eyes twice daily as needed (allergies). famotidine (PEPCID ORAL) Take 1 tablet by mouth twice daily. psyllium husk (METAMUCIL ORAL) Take 1 teaspoonful by mouth two times a day. calcium carbonate (CALCIUM 600 ORAL) Take 600 mg by mouth once daily. vit A,C,O-Yqvc-Vyemla (PRESERVISION AREDS) 7,160-113-100 grob-hf-nhjm tab Take 1 tablet by mouth twice daily. Xsdz-Dkcq-PYY#2-Y-Yuxx-Trevon-Bor (OSTEO BI-FLEX) 750-625-30 mg Tab Take 1 tablet by mouth twice daily. No current facility-administered medications for this visit. DIAGNOSIS, ASSESSMENT AND PLAN There are no active hospital problems to display for this patient. Medication and Non-Pharmacologic VTE Prophylaxis/Anticoagulants VTE Prophylaxis: VTE prophylaxis appropriate Assessment & Plan: Andre Luther is a 74 year old female who presents for pre-op h&P. She is optimally prepared for surgery SIGNATURE: AMI Clay PATIENT NAME: Andre Luther DATE: January 14, 2025 TIME: 10:35 AM PAGER/CONTACT #: [facility] PRE-OP NOTE Andre Luther is a 74 year old female. Pre-op Date: January 14, 2025 Date of Procedure: 01/14/2025 Procedure/Surgery: TURBT Diagnosis: neoplasm of bladder Primary Surgeon: MD Bailey Laura BP 156/90 (BP Site: Left Arm, BP Position: Sitting, BP Cuff Size: Regular Adult) Pulse 82 Ht 156.2 cm (5' 1.5) Wt 65 kg (143 lb 4.8 oz) BMI 26.64 kg/m Pain Assessment: Are you currently having pain? No 0 on a scale of 0 to 10 Surgical Guide Book Status: N/A Allergies Reviewed: Yes Medications Reviewed: Yes Is patient currently on oral steroids?: No Has the patient had a UTI in the past month?: No. Does the patient have any artificial joints (last 2 years), metal parts, pacemakers or cardiac/ureteral stents in place?: No Does the patient have diabetes?: No Is the patient routinely taking anticoagulants?: No. Can the patient have an IV put in either arm?: No , can only have IV in the left arm Urine Dip Complete?: Yes URINE CULTURE COMPLETE?: Yes Ostomy/Stoma Nurse appointment made/completed: N/A [facility]/Medical Clearance: Cleared per [facility] - N/A [facility]: Cleared per [facility] - N/A All testing on cureform has been scheduled: Yes Consent Signed: Yes. DOS Orders Placed and Signed: Yes. Pre-op H&P Done by Physician Voice Over Artist: Yes. PATIENT INSTRUCTIONS FOR SURGERY 1.) DO NOT HAVE ANYTHING TO EAT AFTER MIDNIGHT THE DAY BEFORE SURGERY except for certain morning medications as instructed by the doctor. Candy, mints, gum, and smoking are NOT permitted. You may drink clear liquids (Sprite, water, ruchi luis eduardo) up to two hours before your arrival time on the day of surgery. 2.) Medications to be taken on the morning of surgery with a few sips of water: gapabenitn 3.) Please bring all your prescribed inhalers (if you have any you normally take) to the hospital. 4.) Arrival time: Given. 5.) Prep given: No 6.) Lovenox instructions given: N/A 7.) Patient reminded that surgery time provided day before surgery is tentative based on potential changes with transplants. Recommendations: This patient is optimally prepared for surgery. AMI Clay documented in this encounter [facility] 01-14-2025 Note Patient Outreach (UR OLMN) -------- ANDRE LUTHER ([id number]) 1950 F Date Time Provider Department 01/14/25 ALEJANDRO MARQUIS During your visit today, we recorded the following information about you: Allergies As of Date: 01/14/2025 Noted Allergy Reaction CEPHALOSPORINS 01/19/2008 2 - Rash CODEINE 01/10/2007 8 - GI Upset DUST 01/13/2007 9 - Itching NORTRIPTYLINE 10/24/2020 5 - Intolerance Comments: Elevated blood pressure and pulse. RAGWEED 01/13/2007 DOXYCYCLINE HYCLATE 04/01/2018 5 - Intolerance Comments: Reflux PYRIDIUM (PHENAZOPYRIDINE) 09/03/2019 14 - Other: See Comments Comments: dizziness Date Reviewed: 01/14/2025 Reviewed by: Radha Branch RN - Fully Assessed Visit Diagnosis:Screening for genitourinary condition [Z13.89] Order(s):UA DIP, URINE (POC) [[id number]] Order #: [id number] FUTURE Prescriptions as of 01/18/2025 - gabapentin (NEURONTIN) 100 mg capsule Two capsules (200mg) by mouth every morning. - gabapentin (NEURONTIN) 300 mg capsule Take 1 capsule by mouth daily at bedtime for 180 days. - albuterol HFA (VENTOLIN HFA) 90 mcg/actuation inhaler Inhale 2 Puffs as instructed every 4 hours as needed. - rosuvastatin (CRESTOR) 10 mg tablet Take 1 tablet by mouth daily at bedtime. - etodolac (LODINE) 400 mg tablet Take 1 tablet by mouth every other day. - Cholecalciferol, Vitamin D3, 125 mcg (5,000 unit) cap Take 1 capsule by mouth once daily. - ipratropium bromide (ATROVENT) 42 mcg (0.06 %) nasal spray Use 2 Sprays in the nose four times daily. prn - carboxymethylcellulose sodium (REFRESH OPHTHALMIC) Use 1 Drop in eyes as needed. - propylene glycol (SYSTANE COMPLETE OPHTHALMIC) Use 1 Drop in eyes as needed. - Azelastine HCl (OPTIVAR) 0.05 % ophthalmic solution Use 1 Drop in both eyes twice daily as needed (allergies). - famotidine (PEPCID ORAL) Take 1 tablet by mouth twice daily. - psyllium husk (METAMUCIL ORAL) Take 1 teaspoonful by mouth two times a day. - calcium carbonate (CALCIUM 600 ORAL) Take 600 mg by mouth once daily. - vit A,C,Y-Cbkq-Xanqqt (PRESERVISION AREDS) 7,160-113-100 zmde-vv-cxvn tab Take 1 tablet by mouth twice daily. - Zqsl-Wcrv-BRJ#5-S-Thpy-Trevon-Bor (OSTEO BI-FLEX) 750-625-30 mg Tab Take 1 tablet by mouth twice daily. Meds Comments as of 04/01/2018: Preservision bid Problem List As Of Date 01/14/2025 Noted Resolved Solar Lentigines [L81.4] 08/07/2011 06/22/2014 Seborrheic Keratosis [L82.1] 08/07/2011 06/22/2014 Nobles Angiomas [D18.01] 08/07/2011 06/22/2014 Cutaneous skin tags [L91.8] 08/07/2011 06/22/2014 Bilateral pseudophakia [Z96.1] 04/01/2012 09/20/2017 Pain in joint, lower leg [M25.569] 05/06/2012 09/20/2017 PCO (posterior capsular opacification), left [H*06/26/2012 09/20/2017 After-cataract, obscuring vision [H26.499] 04/20/2014 09/20/2017 Postmenopausal atrophic vaginitis [N95.2] 06/22/2014 09/08/2019 Primary osteoarthritis of left knee [M17.12] 08/09/2015 Mild intermittent asthma without complication [*08/09/2015 Anal or rectal pain [K62.89] 02/08/2017 09/20/2017 Osteopenia [M85.80] 07/28/2018 Malignant neoplasm of upper-outer quadrant of r*09/05/2018 GERD without esophagitis [K21.9] 06/11/2019 Elevated blood pressure reading without diagnos*08/18/2019 PVC (premature ventricular contraction) [I49.3] 09/03/2019 Abnormal stress test [R94.39] 09/03/2019 Allergy [T78.40XA] 04/26/2021 Rectocele [N81.6] 03/22/2023 Cystocele, midline [N81.11] 03/22/2023 Muscle weakness [M62.81] 03/22/2023 12/23/2023 Personal history of malignant neoplasm of breas*08/17/2024 Encounter Status:Closed by PABLO PRODUSER on 01/18/25 [facility] 01-12-2025 Telephone encounter Note Spoke with patient and went over Preop instructions and medications. Patient only taking neurontin since last Saturday and is ok to take up to surgery. Informed her to let anesthesia know she is taking. All questions answered. Felicitas Dewey, CORTNEY, RN, A-GNP-C [facility] Work Phone: 01-12-2025 Miscellaneous Notes Spoke with patient and went over Preop instructions and medications. Patient only taking neurontin since last Saturday and is ok to take up to surgery. Informed her to let anesthesia know she is taking. All questions answered. CORTNEY Navas, RN, A-GNP-C ----- Message from Jaqueline Sagastume sent at 01/11/2025 10:21 AM EDT ----- Regarding: Medication Contact: Not available between 12 and 2 today Needs to know what medications she should stop prior to surgery. She is not on blood thinners and has taken no over the counter things that would thing blood. documented in this encounter [facility] 01-12-2025 Telephone encounter Note ----- Message from Jaqueline Sagastume sent at 01/11/2025 10:21 AM EDT ----- Regarding: Medication Contact: Not available between 12 and 2 today Needs to know what medications she should stop prior to surgery. She is not on blood thinners and has taken no over the counter things that would thing blood. [facility] 01-08-2025 History of Present illness Narrative Radiology Service Progress Note DATE OF SERVICE: January 08, 2025 TIME: 10:12 AM PATIENT IDENTITY VERIFICATION COMPLETED USING TWO (2) STANDARD IDENTIFIERS: Name and Date of confirmed by patient verbally. FALL SCREENING: Has the patient had 2 falls in the last year or 1 fall with injury or currently using an Ambulatory Assistive Device (Walker, Cane, Wheelchair, Crutches, etc.)? No PATIENT GENDER DATA: Assigned female at . status: : No status: NO. PATIENT RELEVANT IMPLANT DATA REVIEWED: Not Applicable PATIENT PRESENTS WITH AN IMPLANTABLE OR ATTACHED GREEN END WORKER: No ALLERGIES: Reviewed and unchanged CONTRAST ALLERGY: NO. EXAM: CT -CONTRAST INDUCED NEPHROPATHY RISK FACTORS: Not applicable CREATININE: Creatinine Date Value Ref Range Status 01/07/2025 0.80 0.58 - 0.96 mg/dL Final 09/03/2023 0.74 0.58 - 0.96 mg/dL Final 09/07/2022 0.77 0.58 - 0.96 mg/dL Final Estimated Glomerular Filtration Rate Date Value Ref Range Status 01/07/2025 78 >=60 mL/min/1.73m Final Comment: Estimated Glomerular Filtration Rate (eGFR) is calculated using the 2020 CKD-EPI creatinine equation. This equation utilizes serum creatinine, sex, and age as parameters. The creatinine assay has traceable calibration to isotope dilution-mass spectrometry. Refer to KDIGO guidelines for clinical interpretation. In patients with unstable renal function, e.g. those with acute kidney injury, the eGFR may not accurately reflect actual GFR. eGFR- Date Value Ref Range Status 10/17/2020 >60 Final P.O.C.T. RESULTS: POC done: Yes, See Lab Tab January 08, 2025 TREATMENT: N/A PERIPHERAL IV DATA: Ambulatory: A peripheral IV was started in the Left upper extremity antecubital site with a Angio cath: 20 gauge. RADIOLOGY DEPARTMENT: CT; Exam(s) Completed: Urogram SIGNATURE: MARK Lr PATIENT NAME: Andre Luther DATE: January 08, 2025 TIME: 10:12 AM documented in this encounter [facility] 01-08-2025 Note HNO ID: [id number] Author: BAO NICE CT Service: Radiology Author Type: Technologist Type: Progress Notes Filed: 01/08/2025 10:12 Note Text: Radiology Service Progress Note DATE OF SERVICE: January 08, 2025 TIME: 10:12 AM PATIENT IDENTITY VERIFICATION COMPLETED USING TWO (2) STANDARD IDENTIFIERS: Name and Date of confirmed by patient verbally. FALL SCREENING: Has the patient had 2 falls in the last year or 1 fall with injury or currently using an Ambulatory Assistive Device (Walker, Cane, Wheelchair, Crutches, etc.)? No PATIENT GENDER DATA: Assigned female at . status: : No status: NO. PATIENT RELEVANT IMPLANT DATA REVIEWED: Not Applicable PATIENT PRESENTS WITH AN IMPLANTABLE OR ATTACHED GREEN END WORKER: No ALLERGIES: Reviewed and unchanged CONTRAST ALLERGY: NO. EXAM: CT -CONTRAST INDUCED NEPHROPATHY RISK FACTORS: Not applicable CREATININE: Creatinine Date Value Ref Range Status 01/07/2025 0.80 0.58 - 0.96 mg/dL Final 09/03/2023 0.74 0.58 - 0.96 mg/dL Final 09/07/2022 0.77 0.58 - 0.96 mg/dL Final Estimated Glomerular Filtration Rate Date Value Ref Range Status 01/07/2025 78 >=60 mL/min/1.73m? Final Comment: Estimated Glomerular Filtration Rate (eGFR) is calculated using the 2020 CKD-EPI creatinine equation. This equation utilizes serum creatinine, sex, and age as parameters. The creatinine assay has traceable calibration to isotope dilution-mass spectrometry. Refer to KDIGO guidelines for clinical interpretation. In patients with unstable renal function, e.g. those with acute kidney injury, the eGFR may not accurately reflect actual GFR. eGFR- Date Value Ref Range Status 10/17/2020 >60 Final P.O.C.T. RESULTS: POC done: Yes, See Lab Tab January 08, 2025 TREATMENT: N/A PERIPHERAL IV DATA: Ambulatory: A peripheral IV was started in the Left upper extremity antecubital site with a Angio cath: 20 gauge. RADIOLOGY DEPARTMENT: CT; Exam(s) Completed: Urogram SIGNATURE: MARK Lr PATIENT NAME: Andre Luther DATE: January 08, 2025 TIME: 10:12 AM [facility] 01-06-2025 Note HNO ID: [id number] Author: NIKOLE BAILEY MD Service: ? Author Type: Physician Type: Progress Notes Filed: 01/07/2025 14:19 Note Text: UROLOGIC INITIAL EVALUATION PROBLEM LIST: 1. ACTIVE PROBLEM LIST Primary Osteoarthritis of Left Knee Mild Intermittent Asthma Without Complication (Hcc) Osteopenia Malignant Neoplasm of Upper-Outer Quadrant of Right Breast in Female, Estrogen Receptor Positive (Hcc) Gerd Without Esophagitis Elevated Blood Pressure Reading Without Diagnosis of Hypertension Pvc (Premature Ventricular Contraction) Abnormal Stress Test Allergy Rectocele Cystocele, Midline Personal History of Malignant Neoplasm of Breast HISTORY OF PRESENT ILLNESS: Andre Luther is a 74 year old female who was first seen on 01.06.25 with new diagnosis of bladder mass. She is a very pleasant 74 yo female, who is active, and well, here with her . She is a never smoker, and no occupational exposure. 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 She denies any second hand exposure. She had a one time episode of hematuria, prompting an ER visit on 12.22.24, at which point there was a concern for a mass vs clot in the bladder. This was adjacent to the left UVJ. Patient still has uterus and adnexa per scan, without overt abnormalities. This was a non contrasted scan She did undergo a cystoscopy with an [facility] urologist who noted that this was a papillary mass likely malignancy and recommended TURBT> They are here to establish care She is otherwise healthy with GERD, and HTN, without any strong family history of malignancy She has history of breast cancer 1990s tx with lumpectomy and xrt, without recurrence PAST MEDICAL HISTORY: PAST MEDICAL HISTORY Diagnosis Date Asthma Basal cell carcinoma 09/2024 nose Breast cancer (HCC) right s/p lumpectomy 08/2017, and radiation Macular cyst, hole, or pseudohole of retina Both eyes Osteopenia after menopause PVC (premature ventricular contraction) Shingles PAST SURGICAL HISTORY: PAST SURGICAL HISTORY Procedure Laterality Date BREAST BIOPSY INCISIONAL RIGHT Right 07/2018 BREAST LUMPECTOMY HX Right 09/15/2018 Right NL PM/SNBx: [id number], ER/AR+, HER2 Neg, Grade 1, IDC w/tubular features; 1/2nodes COLONOSCOPY 07/2007, 01/14 nevus 1980 face. POST-CATARACT LASER SURGERY 06/26/2012 Yag Capsulotomy OS VITRECTOMY FOR MACULAR HOLE Left 06/06/2011 L eye. VITRECTOMY MECHANICAL PARS PLANA Right 02/20/2012 [place] Vitrectomy ,MP, PCIOL OD ALLERGIES: ALLERGIES Allergen Reactions Cephalosporins Rash Codeine GI Upset Dust Itching Nortriptyline Intolerance Elevated blood pressure and pulse. Ragweed Doxycycline Hyclate Intolerance Reflux Pyridium [Phenazopy* Other: See Comments dizziness MEDICATIONS: Current Outpatient Medications on File Prior to Visit Medication Sig gabapentin (NEURONTIN) 100 mg capsule Two capsules (200mg) by mouth every morning. gabapentin (NEURONTIN) 300 mg capsule Take 1 capsule by mouth daily at bedtime for 180 days. albuterol HFA (VENTOLIN HFA) 90 mcg/actuation inhaler Inhale 2 Puffs as instructed every 4 hours as needed. rosuvastatin (CRESTOR) 10 mg tablet Take 1 tablet by mouth daily at bedtime. etodolac (LODINE) 400 mg tablet Take 1 tablet by mouth every other day. Cholecalciferol, Vitamin D3, 125 mcg (5,000 unit) cap Take 1 capsule by mouth once daily. ipratropium bromide (ATROVENT) 42 mcg (0.06 %) nasal spray Use 2 Sprays in the nose four times daily. prn carboxymethylcellulose sodium (REFRESH OPHTHALMIC) Use 1 Drop in eyes as needed. propylene glycol (SYSTANE COMPLETE OPHTHALMIC) Use 1 Drop in eyes as needed. Azelastine HCl (OPTIVAR) 0.05 % ophthalmic solution Use 1 Drop in both eyes twice daily as needed (allergies). famotidine (PEPCID ORAL) Take 1 tablet by mouth twice daily. psyllium husk (METAMUCIL ORAL) Take 1 teaspoonful by mouth two times a day. calcium carbonate (CALCIUM 600 ORAL) Take 600 mg by mouth once daily. vit A,C,L-Kouu-Ztoaqy (PRESERVISION AREDS) 7,160-113-100 opge-kz-raon tab Take 1 tablet by mouth twice daily. Bzul-Rigy-VCK#0-A-Ajvg-Tervon-Bor (OSTEO BI-FLEX) 750-625-30 mg Tab Take 1 tablet by mouth twice daily. No current facility-administered medications on file prior to visit. SOCIAL HISTORY: Patient reports that she has never smoked. She has never used smokeless tobacco. She reports that she does not drink alcohol and does not use drugs. Social History Tobacco Use Smoking status: Never Smokeless tobacco: Never Vaping Use Vaping status: Never Used Substance Use Topics Alcohol use: No Drug use: No FAMILY HISTORY: FAMILY HISTORY Problem Relation Age of Onset Cataract Mother other (osteopenia) Mother Osteopenia Stroke Mother Heart Father SC Lipids Father High Cholesterol other (Macular Degeneration) Maternal Grandfather Heart Attack Paternal Grandmother Heart Attack (more content not included)... [facility] 01-06-2025 History of Present illness Narrative Images from the original note were not included. UROLOGIC INITIAL EVALUATION PROBLEM LIST: 1. ACTIVE PROBLEM LIST Primary Osteoarthritis of Left Knee Mild Intermittent Asthma Without Complication (Hcc) Osteopenia Malignant Neoplasm of Upper-Outer Quadrant of Right Breast in Female, Estrogen Receptor Positive (Hcc) Gerd Without Esophagitis Elevated Blood Pressure Reading Without Diagnosis of Hypertension Pvc (Premature Ventricular Contraction) Abnormal Stress Test Allergy Rectocele Cystocele, Midline Personal History of Malignant Neoplasm of Breast HISTORY OF PRESENT ILLNESS: Andre Luther is a 74 year old female who was first seen on 01.06.25 with new diagnosis of bladder mass. She is a very pleasant 74 yo female, who is active, and well, here with her . She is a never smoker, and no occupational exposure. 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 She denies any second hand exposure. She had a one time episode of hematuria, prompting an ER visit on 12.22.24, at which point there was a concern for a mass vs clot in the bladder. This was adjacent to the left UVJ. Patient still has uterus and adnexa per scan, without overt abnormalities. This was a non contrasted scan She did undergo a cystoscopy with an [facility] urologist who noted that this was a papillary mass likely malignancy and recommended TURBT> They are here to establish care She is otherwise healthy with GERD, and HTN, without any strong family history of malignancy She has history of breast cancer 1990s tx with lumpectomy and xrt, without recurrence PAST MEDICAL HISTORY: PAST MEDICAL HISTORY Diagnosis Date Asthma Basal cell carcinoma 09/2024 nose Breast cancer (HCC) right s/p lumpectomy 08/2017, and radiation Macular cyst, hole, or pseudohole of retina Both eyes Osteopenia after menopause PVC (premature ventricular contraction) Shingles PAST SURGICAL HISTORY: PAST SURGICAL HISTORY Procedure Laterality Date BREAST BIOPSY INCISIONAL RIGHT Right 07/2018 BREAST LUMPECTOMY HX Right 09/15/2018 Right NL PM/SNBx: [id number], ER/AR+, HER2 Neg, Grade 1, IDC w/tubular features; 1/2nodes COLONOSCOPY 07/2007, 01/14 nevus 1980 face. POST-CATARACT LASER SURGERY 06/26/2012 Yag Capsulotomy OS VITRECTOMY FOR MACULAR HOLE Left 06/06/2011 L eye. VITRECTOMY MECHANICAL PARS PLANA Right 02/20/2012 [place] Vitrectomy ,MP, PCIOL OD ALLERGIES: ALLERGIES Allergen Reactions Cephalosporins Rash Codeine GI Upset Dust Itching Nortriptyline Intolerance Elevated blood pressure and pulse. Ragweed Doxycycline Hyclate Intolerance Reflux Pyridium [Phenazopy* Other: See Comments dizziness MEDICATIONS: Current Outpatient Medications on File Prior to Visit Medication Sig gabapentin (NEURONTIN) 100 mg capsule Two capsules (200mg) by mouth every morning. gabapentin (NEURONTIN) 300 mg capsule Take 1 capsule by mouth daily at bedtime for 180 days. albuterol HFA (VENTOLIN HFA) 90 mcg/actuation inhaler Inhale 2 Puffs as instructed every 4 hours as needed. rosuvastatin (CRESTOR) 10 mg tablet Take 1 tablet by mouth daily at bedtime. etodolac (LODINE) 400 mg tablet Take 1 tablet by mouth every other day. Cholecalciferol, Vitamin D3, 125 mcg (5,000 unit) cap Take 1 capsule by mouth once daily. ipratropium bromide (ATROVENT) 42 mcg (0.06 %) nasal spray Use 2 Sprays in the nose four times daily. prn carboxymethylcellulose sodium (REFRESH OPHTHALMIC) Use 1 Drop in eyes as needed. propylene glycol (SYSTANE COMPLETE OPHTHALMIC) Use 1 Drop in eyes as needed. Azelastine HCl (OPTIVAR) 0.05 % ophthalmic solution Use 1 Drop in both eyes twice daily as needed (allergies). famotidine (PEPCID ORAL) Take 1 tablet by mouth twice daily. psyllium husk (METAMUCIL ORAL) Take 1 teaspoonful by mouth two times a day. calcium carbonate (CALCIUM 600 ORAL) Take 600 mg by mouth once daily. vit A,C,A-Xenl-Pflego (PRESERVISION AREDS) 7,160-113-100 edzr-qj-ntho tab Take 1 tablet by mouth twice daily. Vnkf-Psth-NEF#2-X-Gdep-Trevon-Bor (OSTEO BI-FLEX) 750-625-30 mg Tab Take 1 tablet by mouth twice daily. No current facility-administered medications on file prior to visit. SOCIAL HISTORY: Patient reports that she has never smoked. She has never used smokeless tobacco. She reports that she does not drink alcohol and does not use drugs. Social History Tobacco Use Smoking status: Never Smokeless tobacco: Never Vaping Use Vaping status: Never Used Substance Use Topics Alcohol use: No Drug use: No FAMILY HISTORY: FAMILY HISTORY Problem Relation Age of Onset Cataract Mother other (osteopenia) Mother Osteopenia Stroke Mother Heart Father SC Lipids Father High Cholesterol other (Macular Degeneration) Maternal Grandfather Heart Attack Paternal Grandmother Heart Attack Paternal Grandfather Blood Clots Daughter Coronary Artery Disease Paternal Aunt Coronary Artery Disease Paternal Uncle REVIEW OF SYSTEMS: Constitutional: Negative for fever and chills. Denies anorexia, weight loss. Eyes: Negative for visual disturbance. Respiratory: Negative for shortness of breath. Cardiovascular: Negative for chest pain. Gastrointestinal: Negative for nausea and vomiting. Genitourinary: See interval history above. Skin: Negative for rash. Neurological: Negative for dizziness and numbness. Psychiatric/Behavioral: Negative for confusion and decreased concentration. PHYSICAL EXAM: There were no vitals taken for this visit. Constitutional: Patient appears well-developed and well-nourished. No distress. Head: Normocephalic and atraumatic. Neck: Normal range of motion. Cardiovascular: Normal rate. Pulmonary/Chest: Effort normal. No respiratory distress. Abdominal: soft nt : microhematuria present Musculoskeletal: Normal range of motion. Neurological: Alert and oriented to person, place, and time. Psychiatric: Normal mood and affect. Behavior is normal. Thought content normal. PATHOLOGY REVIEW: None available RADIOLOGY REVIEW: 12.22.24 CT non contrast LABORATORY REVIEW: Lab Results Component Value Date BUN 13 01/07/2025 NA 143 01/07/2025 K 4.1 01/07/2025 CO2 26 01/07/2025 Lab Results Component Value Date WBC 4.80 01/07/2025 RBC 4.43 01/07/2025 HCT 42.7 01/07/2025 MCV 96.4 01/07/2025 MCH 33.2 01/07/2025 MCHC 34.4 01/07/2025 PLT 178 01/07/2025 MPV 10.8 01/07/2025 Assessment: Andre Luther is a 74 year old female with history of hematuria, and bladder mass Plan: Schedule for TURBT Will need CT Urogram prior to TURBT Nikole Bailey MD MPH MSc Motor Equipment Lieutenant Urologic Oncology Translational Science Lead, Oncology Department of Urology Q10 [facility] [address] [place] [address] documented in this encounter [facility] 01-06-2025 Note Patient Outreach (UR OLMN) -------- ANDRE LUTHER ([id number]) 1950 F Date Time Provider Department 01/06/25 NIKOLE BAILEY During your visit today, we recorded the following information about you: Allergies As of Date: 01/06/2025 Noted Allergy Reaction CEPHALOSPORINS 01/19/2008 2 - Rash CODEINE 01/10/2007 8 - GI Upset DUST 01/13/2007 9 - Itching NORTRIPTYLINE 10/24/2020 5 - Intolerance Comments: Elevated blood pressure and pulse. RAGWEED 01/13/2007 DOXYCYCLINE HYCLATE 04/01/2018 5 - Intolerance Comments: Reflux PYRIDIUM (PHENAZOPYRIDINE) 09/03/2019 14 - Other: See Comments Comments: dizziness Date Reviewed: 01/06/2025 Reviewed by: Phuong Norton MA - Fully Assessed Visit Diagnosis:Screening for genitourinary condition [Z13.89] Order(s):UA DIP, URINE (POC) [[id number]] Order #: [id number] FUTURE Prescriptions as of 01/11/2025 - gabapentin (NEURONTIN) 100 mg capsule Two capsules (200mg) by mouth every morning. - gabapentin (NEURONTIN) 300 mg capsule Take 1 capsule by mouth daily at bedtime for 180 days. - albuterol HFA (VENTOLIN HFA) 90 mcg/actuation inhaler Inhale 2 Puffs as instructed every 4 hours as needed. - rosuvastatin (CRESTOR) 10 mg tablet Take 1 tablet by mouth daily at bedtime. - etodolac (LODINE) 400 mg tablet Take 1 tablet by mouth every other day. - Cholecalciferol, Vitamin D3, 125 mcg (5,000 unit) cap Take 1 capsule by mouth once daily. - ipratropium bromide (ATROVENT) 42 mcg (0.06 %) nasal spray Use 2 Sprays in the nose four times daily. prn - carboxymethylcellulose sodium (REFRESH OPHTHALMIC) Use 1 Drop in eyes as needed. - propylene glycol (SYSTANE COMPLETE OPHTHALMIC) Use 1 Drop in eyes as needed. - Azelastine HCl (OPTIVAR) 0.05 % ophthalmic solution Use 1 Drop in both eyes twice daily as needed (allergies). - famotidine (PEPCID ORAL) Take 1 tablet by mouth twice daily. - psyllium husk (METAMUCIL ORAL) Take 1 teaspoonful by mouth two times a day. - calcium carbonate (CALCIUM 600 ORAL) Take 600 mg by mouth once daily. - vit A,C,Q-Vsih-Bainbg (PRESERVISION AREDS) 7,160-113-100 sszv-jr-iwtm tab Take 1 tablet by mouth twice daily. - Kojp-Mbfo-MTB#1-L-Edpe-Trevon-Bor (OSTEO BI-FLEX) 750-625-30 mg Tab Take 1 tablet by mouth twice daily. Meds Comments as of 04/01/2018: Preservision bid Problem List As Of Date 01/06/2025 Noted Resolved Solar Lentigines [L81.4] 08/07/2011 06/22/2014 Seborrheic Keratosis [L82.1] 08/07/2011 06/22/2014 Nobles Angiomas [D18.01] 08/07/2011 06/22/2014 Cutaneous skin tags [L91.8] 08/07/2011 06/22/2014 Bilateral pseudophakia [Z96.1] 04/01/2012 09/20/2017 Pain in joint, lower leg [M25.569] 05/06/2012 09/20/2017 PCO (posterior capsular opacification), left [H*06/26/2012 09/20/2017 After-cataract, obscuring vision [H26.499] 04/20/2014 09/20/2017 Postmenopausal atrophic vaginitis [N95.2] 06/22/2014 09/08/2019 Primary osteoarthritis of left knee [M17.12] 08/09/2015 Mild intermittent asthma without complication [*08/09/2015 Anal or rectal pain [K62.89] 02/08/2017 09/20/2017 Osteopenia [M85.80] 07/28/2018 Malignant neoplasm of upper-outer quadrant of r*09/05/2018 GERD without esophagitis [K21.9] 06/11/2019 Elevated blood pressure reading without diagnos*08/18/2019 PVC (premature ventricular contraction) [I49.3] 09/03/2019 Abnormal stress test [R94.39] 09/03/2019 Allergy [T78.40XA] 04/26/2021 Rectocele [N81.6] 03/22/2023 Cystocele, midline [N81.11] 03/22/2023 Muscle weakness [M62.81] 03/22/2023 12/23/2023 Personal history of malignant neoplasm of breas*08/17/2024 Encounter Status:Closed by EPIC, PRODUSER on 01/11/25 [facility] 12-22-2024 Radiology Diagnostic study note [facility] Imaging Services [address], [place] [address] Abdomen/Pelvis without Cont MR#: [id number] Acct: [id number] Name: ANDRE LUTHER Rep #: [id number] 1 : 1950 F 74 From: Troy Clifford MD PCP: Dr. Abhishek Huynh MD Status: REG E R Study:Abdomen/Pelvis without Cont Date of Exa m: 12/22/24 Exam# [id number] Ordering Dr: Srinivasa Cruz DO EXAM: CT abdomen and pelvis without contrast CLINICAL HISTORY: Hematuria COMPARISON: None available TECHNIQUE: Noncontrast CT of the abdomen and pelvis with coronal and sagittal reformatted images FINDINGS: Platelike area of atelectasis or scarring at the left lower lobe and adjacent lingula. The liver, gallbladder, adrenal glands, kidneys, pancreas and spleen appear within limits. No renal stones, hydronephrosis or perinephric stranding. No evidence of renal lesion identified on noncontrast imaging. Small hiatal hernia. No bowel dilation or free air. Diverticulosis without diverticulitis. The appendix is not identified, no secondary signs. The uterus and adnexa appear within limits. Around 1.8 cm high density focus left side of the bladder adjacent to the area of the ureterovesical junction axial 153, sagittal 78 and coronal 58 may represent blood products, hemorrhage, blood clot with possibility of bladder lesion not excluded. Recommend urology consult and further workup. The bladder is nondistended without evidence of wall thickening. No calcified bladder stone identified. No ureteral stone identified. No free fluid. Abdominal aorta within limits without aneurysm. No adenopathy identified. The visualized osseous structures appear within limits. CT/Abdomen/Pelvis without Cont IMPRESSION: Around 1.8 cm high density focus left side of the bladder adjacent to the area of the ureterovesical junction axial 153, sagittal 78 and coronal 58 may represent blood products, hemorrhage, blood clot with possibility of bladder lesion not excluded. Recommend urology consult and further workup. Reading Location: [id number] CC: Dr. Srinivasa Cruz, ; Dr. Abhishek Huynh MD ~ 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: Signed [facility] 12-22-2024 Telephone encounter Note phoned and given provider's message below reports he spoke with Medicare who told him Dr. Estrada Dodge, urology/surgeon is covered and he can schedule appt. asking how he can get the CT that was done at [facility] sent to Dr. Dodge. Advised to call [facility] medical records to request this. agreeable. [facility] 12-22-2024 Miscellaneous Notes phoned and given provider's message below reports he spoke with Medicare who told him Dr. Estrada Dodge urology/surgeon is covered and he can schedule appt. asking how he can get the CT that was done at [facility] sent to Dr. Dodge. Advised to call [facility] medical records to request this. agreeable. Any of the urologist at either location is ok. If they want us to assist in setting up, let us know. Call if any worsening of symptoms. Patient Azael calling last evening at 11 pm went to the bathroom and had hematuria. She was not having any pain or nothing unusual. He took her to [facility] ER for eval. She had CT done and showed possible clot or mass bladder. ER wanted her to see Urology NATASHA. is going to call [facility] or [facility] to see who he can get his scheduled an appt with. He was asking if Dr Huynh knew anyone she should be seeing? Offered ER follow up appt he wanted to see what he could do for appt, said did not need referral. Please advise documented in this encounter [facility] 12-22-2024 Telephone encounter Note Any of the urologist at either location is ok. If they want us to assist in setting up, let us know. Call if any worsening of symptoms. [facility] 12-22-2024 Telephone encounter Note Patient Azael calling last evening at 11 pm went to the bathroom and had hematuria. She was not having any pain or nothing unusual. He took her to [facility] ER for eval. She had CT done and showed possible clot or mass bladder. ER wanted her to see Urology NATASHA. is going to call [facility] or [employer] to see who he can get his scheduled an appt with. He was asking if Dr Huynh knew anyone she should be seeing? Offered ER follow up appt he wanted to see what he could do for appt, said did not need referral. Please advise [facility] 12-18-2024 Telephone encounter Note Pt. Is on 100 mg and 300 mg capsules. 300 filled last week, needs 100 mg capsules. Requested 180 as that will last her 3 months as she takes 2 a day. Order pended Lisa Nguyen LPN [facility] 12-18-2024 Miscellaneous Notes Pt. Is on 100 mg and 300 mg capsules. 300 filled last week, needs 100 mg capsules. Requested 180 as that will last her 3 months as she takes 2 a day. Order pended Lisa Nguyen LPN Would a nurse please look into this. I just sent in a refill last week (12/07/24) of neurontin 300mg (6 month supply was sent). Thank you. Radha Her APRN.VALERY Patient called for refill Gabapentin 100mg [facility] pharmacy in [place] Patient has been identified by name and date of : Yes, Provider arden Date 12/18/2024 Time 11:07 Patient phones for refill(s): Requested Prescriptions No prescriptions requested or ordered in this encounter Date of last office visit in primary care: Visit date not found Date of next office visit in primary care: 02/12/2025 Please advise. Thank you. Regi Sethi. documented in this encounter [facility] 12-18-2024 Telephone encounter Note Would a nurse please look into this. I just sent in a refill last week (12/07/24) of neurontin 300mg (6 month supply was sent). Thank you. Radha Her APRN.PLASTERING SUPERVISOR [facility] 12-18-2024 Telephone encounter Note Patient called for refill Gabapentin 100mg [facility] pharmacy in [place] Patient has been identified by name and date of : Yes, Provider her Date 12/18/2024 Time 11:07 Patient phones for refill(s): Requested Prescriptions No prescriptions requested or ordered in this encounter Date of last office visit in primary care: Visit date not found Date of next office visit in primary care: 02/12/2025 Please advise. Thank you. Regi Sethi. [facility] 12-07-2024 Telephone encounter Note Rx received for refill req of gabapentin for Right axillary nerve pain. Next OV here 02/12/25. [facility] 12-07-2024 Miscellaneous Notes Rx received for refill req of gabapentin for Right axillary nerve pain. Next OV here 02/12/25. documented in this encounter [facility] 10-09-2024 Note HNO ID: [id number] Author: VIBHA ROSA MD Service: ? Author Type: Physician Type: Progress Notes Filed: 10/09/2024 09:14 Note Text: Activity Leader offered: Patient declines. Andre is a 74 year old who presents for an annual gynecologic exam without complaints. Postmenopausal: Yes HRT use: No. Still get period: No Menopause symptoms: Hot flashes; Vaginal dryness control frequency: Never HPV vaccine: Unsure; Last pap smear: 2017 History of abnormal pap: No, all prior PAP smears have been normal Leep: No. Cone biopsy: No. 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 History Comments: Sexual Activity: Not Asked; Male; Not asked Contraception: No contraception data on record PAST MEDICAL HISTORY Diagnosis Date Asthma Breast cancer (HCC) right s/p lumpectomy 08/2017, and radiation Macular cyst, hole, or pseudohole of retina Both eyes Osteopenia after menopause PVC (premature ventricular contraction) Shingles PAST SURGICAL HISTORY Procedure Laterality Date BREAST BIOPSY INCISIONAL RIGHT Right 07/2018 BREAST LUMPECTOMY HX Right 09/15/2018 Right NL PM/SNBx: [id number], ER/AR+, HER2 Neg, Grade 1, IDC w/tubular features; 1/2nodes COLONOSCOPY 07/2007, 01/14 nevus 1980 face. POST-CATARACT LASER SURGERY 06/26/2012 Yag Capsulotomy OS VITRECTOMY FOR MACULAR HOLE Left 06/06/2011 L eye. VITRECTOMY MECHANICAL PARS PLANA Right 02/20/2012 [place] Vitrectomy ,MP, PCIOL OD FAMILY HISTORY Problem Relation Age of Onset Cataract Mother other (osteopenia) Mother Osteopenia Stroke Mother Heart Father SC Lipids Father High Cholesterol other (Macular Degeneration) Maternal Grandfather Heart Attack Paternal Grandmother Heart Attack Paternal Grandfather Blood Clots Daughter Coronary Artery Disease Paternal Aunt Coronary Artery Disease Paternal Uncle SOCIAL HISTORY Social History Tobacco Use Smoking status: Never Smokeless tobacco: Never Vaping Use Vaping status: Never Used Substance Use Topics Alcohol use: No Drug use: No REVIEW OF SYSTEMS Abdomen: No abdominal pain, nausea, vomiting, diarrhea, or constipation. No bloating, early satiety, indigestion, or increased flatulence. Bladder: No dysuria, gross hematuria, urinary frequency, urinary urgency, or incontinence Breast: No breast lumps, nipple d/c, overlying skin changes, redness or skin retraction Allergies and current medication updated:Yes SENSITIVE EXAM: The sensitive examination was discussed with the Patient or Patient's Authorized Factory Clerk. As applicable, any other physician, advance practice provider, medical student, or other health professional student that will be observing or involved in the sensitive examination for educational or training purposes was discussed with the Patient or Authorized Factory Clerk. The Patient or Authorized Factory Clerk has agreed to proceed with the sensitive examination. (Sensitive examination includes inspection and/or palpation of the breasts, pelvis, prostate and anorectal regions). EXAM: There were no vitals taken for this visit. GENERAL: pleasant, female in no apparent distress HEENT: Normocephalic and atraumatic NECK: full range of motion BREAST: soft, non-tender, symmetric, no dominant mass, normal nipple-areolar complex, no lymphadenopathy, and no nipple discharge, prior lumpectomy scar noted CHEST: Normal inspiratory effort ABDOMEN: soft, non-tender, and no masses PELVIC: external genitalia normal, normal Bartholin's glands, urethra, Hustisford's glands, no vulvar lesions, no cervical lesions, good vaginal support, physiologic discharge present, normal appearing perineal body and perianal region, rectocele 2nd degree BIMANUAL: uterus normal size, shape and consistency, no adnexal masses, and non-tender RECTOVAGINAL: deferred. NEURO: exam grossly non-focal EXTREMITIES: normal ASSESSMENT/PLAN: 1) Health maintenance: Pap/HPV screening no longer needed Mammogram up to date Nutrition, exercise and routine health maintenance exams reviewed. TSH/lipids/glucose: followed by PCP BMD: followed by PCP 2) Follow up one year or sooner as needed Vibha Rosa DO [facility] 09-16-2024 History of Present illness Narrative Program_ID:[id number] Access Code: [email or web address] URL: [email or web address] Date: 09-16-2024 Prepared By: Farzana Hidalgo Program Notes Exercises - Supine Chest Stretch with Elbows Bent - 1 x daily - 7 x weekly - sets - 3 reps - Supine Shoulder External Rotation in Abduction - 1 x daily - 7 x weekly - sets - 10 reps - Seated Scapular Retraction - 1 x daily - 7 x weekly - 1 sets - 10 reps - Wall Push Up - 1 x daily - 7 x weekly - 1-2 sets - 10 reps - Seated Shoulder Shrug Circles AROM Backward - 1 x daily - 7 x weekly - 1-2 sets - 10 reps Images from the original note were not included. Episode Visit Count: 2 Therapist That Will Accept/Oversee The Plan Of Care: Farzana Hidalgo Start of Care Date: 08/17/24 Onset Date: 06/30/24 Plan of Care Certification Date: 08/17/24 Next Certification Due Date: 10/17/24 Patient Identified by Name and Date of : Yes REHABILITATION AND SPORTS THERAPY PHYSICAL THERAPY DISCONTINUANCE OF CARE PLAN OF CARE UPDATE: Assessment: Andre Luther is discontinued from Physical Therapy services due to goal achievement.. Patient was seen for 2 visits from Start of Care Date: 08/17/24 to 09/16/2024 and treatment included: Therapeutic exercise, Self-prison management, and Patient/Family/Caregiver Education. Goals for Episode of Care: established 08/17/24 Goals updated on 09/16/2024. Pt will demonstrate reduction of soft tissue restrictions. (Met) [place] in home exercise program. (Met) Patient will decrease pain rating by 2 points to meet minimal clinical important difference for numeric pain rating scale. (Met) Patient will demonstrate increase in R UE strength to 4+ to 5/5 during manual muscle testing in order to improve function for home management tasks, leisure / recreation skills, and prior functional tasks. (Met) Perform opening jars, vacuuming, and household cleaning with decreased report of symptoms/pain in 4-8 weeks. (Met) Improve postural awareness. (Not Met) Patient Goals: Any exercises that would help any of the pain the I get. (Met) SUBJECTIVE: Pt states she has not had any numbness at all and no more nerve pain. She notes the only thing that bothered her is in her upper back when she is lifting, carrying things, shopping, etc. Pt states it is better than it usually is this time of year. She is able ot open jars now without pain. 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 5 points is clinically meaningfully difference Percentiles provide an indication of how the patient's score ranks in relation to the general population. Higher percentile rankings indicate better function/quality of life. 50th percentile is the average of the general population and indicates half of respondents had a worse score. OBJECTIVE MEASURES WITH LEVEL OF FUNCTION: UE AROM R UE AROM: Cervical AROM; flex 65deg, ext 55deg, lateral flex 50deg B, rot R 60deg, L 70deg. L UE AROM: shld WFL B TREATMENT: Therapeutic Exercise: 1: standing goal post stretch 3 x 30 sec 2: standing goal post through full availaable ROM x 10 3: supine butterfly stretch 3 x 30 sec 4: seated scapular retractions 10x 5 sec holds 5: *posterior shld circles x 20 6: *wall push ups 2 x 10 Skilled Intervention: Patient was educated in proper exercise technique and purpose for exercises. Reviewed and educated patient on additions/changes for home exercise program as above (*). Skilled judgment was used in selection of appropriate interventions. Provided written instruction for home exercise program to facilitate proper performance and compliance. Correct performance of therapeutic exercises was facilitated with verbal and visual cuing. Additional time necessary for objective measurements and reassessment due to plan of care update and/or discharge. Patient education as noted. Billing Therapeutic Exercise Treatment Minutes: 37 Skilled Treatment Time Minutes (timed and untimed codes): 37 Total Session Time (minutes): 37 Session Start Time : 852 Session Stop Time : 929 Farzana Hidalgo PT documented in this encounter [facility] 09-16-2024 Note HNO ID: [id number] Author: FARZANA HIDALGO PT Service: ? Author Type: Physical Therapist Type: Progress Notes Filed: 09/16/2024 09:45 Note Text: Episode Visit Count: 2 Therapist That Will Accept/Oversee The Plan Of Care: Farzana Hidalgo Start of Care Date: 08/17/24 Onset Date: 06/30/24 Plan of Care Certification Date: 08/17/24 Next Certification Due Date: 10/17/24 Patient Identified by Name and Date of : Yes REHABILITATION AND SPORTS THERAPY PHYSICAL THERAPY DISCONTINUANCE OF CARE PLAN OF CARE UPDATE: Assessment: Andre Sharpe Homa is discontinued from Physical Therapy services due to goal achievement.. Patient was seen for 2 visits from Start of Care Date: 08/17/24 to 09/16/2024 and treatment included: Therapeutic exercise, Self-prison management, and Patient/Family/Caregiver Education. Goals for Episode of Care: established 08/17/24 Goals updated on 09/16/2024. Pt will demonstrate reduction of soft tissue restrictions. (Met) [place] in home exercise program. (Met) Patient will decrease pain rating by 2 points to meet minimal clinical important difference for numeric pain rating scale. (Met) Patient will demonstrate increase in R UE strength to 4+ to 5/5 during manual muscle testing in order to improve function for home management tasks, leisure / recreation skills, and prior functional tasks. (Met) Perform opening jars, vacuuming, and household cleaning with decreased report of symptoms/pain in 4-8 weeks. (Met) Improve postural awareness. (Not Met) Patient Goals: Any exercises that would help any of the pain the I get. (Met) SUBJECTIVE: Pt states she has not had any numbness at all and no more nerve pain. She notes the only thing that bothered her is in her upper back when she is lifting, carrying things, shopping, etc. Pt states it is better than it usually is this time of year. She is able ot open jars now without pain. 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 5 points is clinically meaningfully difference Percentiles provide an indication of how the patient's score ranks in relation to the general population. Higher percentile rankings indicate better function/quality of life. 50th percentile is the average of the general population and indicates half of respondents had a worse score. OBJECTIVE MEASURES WITH LEVEL OF FUNCTION: UE AROM R UE AROM: Cervical AROM; flex 65deg, ext 55deg, lateral flex 50deg B, rot R 60deg, L 70deg. L UE AROM: shld WFL B TREATMENT: Therapeutic Exercise: 1: standing goal post stretch 3 x 30 sec 2: standing goal post through full availaable ROM x 10 3: supine butterfly stretch 3 x 30 sec 4: seated scapular retractions 10x 5 sec holds 5: *posterior shld circles x 20 6: *wall push ups 2 x 10 Skilled Intervention: Patient was educated in proper exercise technique and purpose for exercises. Reviewed and educated patient on additions/changes for home exercise program as above (*). Skilled judgment was used in selection of appropriate interventions. Provided written instruction for home exercise program to facilitate proper performance and compliance. Correct performance of therapeutic exercises was facilitated with verbal and visual cuing. Additional time necessary for objective measurements and reassessment due to plan of care update and/or discharge. Patient education as noted. Billing Therapeutic Exercise Treatment Minutes: 37 Skilled Treatment Time Minutes (timed and untimed codes): 37 Total Session Time (minutes): 37 Session Start Time : 852 Session Stop Time : 929 Farzana Hidalgo, PT [facility] 08-20-2024 Telephone encounter Note Patient informed and scheduled [facility] Work Phone: 08-20-2024 Miscellaneous Notes Patient informed and scheduled Please inform pt. that her mammogram looks good. OV in 6 months. Radha Her APRN.CNP documented in this encounter [facility] 08-20-2024 Telephone encounter Note Please inform pt. that her mammogram looks good. OV in 6 months. Radha Her APRN.CNP [facility] 08-20-2024 History of Present illness Narrative Radiology Service Progress Note PATIENT NAME: Andre Luther DATE OF SERVICE: August 20, 2024 TIME: 9:50 AM PATIENT IDENTITY VERIFICATION COMPLETED USING TWO (2) IDENTIFIERS: Name and Date of confirmed by patient verbally. FALL SCREENING: Has the patient had 2 falls in the last year or 1 fall with injury or currently using an Ambulatory Assistive Device (Walker, Cane, Wheelchair, Crutches, etc.)? No PATIENT GENDER DATA: Female. status: : No status: NO. PATIENT RELEVANT IMPLANT DATA REVIEWED: Not Applicable PATIENT PRESENTS WITH AN IMPLANTABLE OR ATTACHED GREEN END WORKER: No RADIOLOGY DEPARTMENT: Mammography PERIPHERAL IV DATA: Not applicable SIGNED BY: Michelle Elkins August 20, 2024 9:50 AM documented in this encounter [facility] 08-20-2024 Note HNO ID: [id number] Author: TONIO BOSWELL Mammo Tech Service: ? Author Type: Deicer Repairer Pneumatic Type: Progress Notes Filed: 08/20/2024 09:50 Note Text: Radiology Service Progress Note PATIENT NAME: Andre Luther DATE OF SERVICE: August 20, 2024 TIME: 9:50 AM PATIENT IDENTITY VERIFICATION COMPLETED USING TWO (2) IDENTIFIERS: Name and Date of confirmed by patient verbally. FALL SCREENING: Has the patient had 2 falls in the last year or 1 fall with injury or currently using an Ambulatory Assistive Device (Walker, Cane, Wheelchair, Crutches, etc.)? No PATIENT GENDER DATA: Female. status: : No status: NO. PATIENT RELEVANT IMPLANT DATA REVIEWED: Not Applicable PATIENT PRESENTS WITH AN IMPLANTABLE OR ATTACHED GREEN END WORKER: No RADIOLOGY DEPARTMENT: Mammography PERIPHERAL IV DATA: Not applicable SIGNED BY: Michelle Elkins August 20, 2024 9:50 AM [facility] 08-17-2024 Note HNO ID: [id number] Author: FARZANA HIDALGO PT Service: ? Author Type: Physical Therapist Type: Progress Notes Filed: 08/17/2024 21:04 Note Text: Episode Visit Count: 1 Therapist That Will Accept/Oversee The Plan Of Care: SebastianfranciscoFarzana Start of Care Date: 08/17/24 Onset Date: 06/30/24 Plan of Care Certification Date: 08/17/24 Next Certification Due Date: 10/17/24 Patient Identified by Name and Date of : Yes REHABILITATION AND SPORTS THERAPY PHYSICAL THERAPY EVALUATION PLAN OF CARE: Assessment: Andre Luther presents with chief complaint of pain R posterior shld, lateral chest wall, latissimus region that interferes with nothing, cleaning (Able to do all activities, just gets pain the next day if does too much. Vaccuuming (uses L arm to do). Opening jars (bothers/pain) in upper arm during and - may feel it next day.) . The patient presents with impairments in overall function, strength, symptom management, and soft tissue restrictions. PROMIS? (Patient-Reported Outcomes Measurement Information System) scores were reviewed and identified as a rehabilitation concern. Prognosis for therapy is Good due to: current objective clinical presentation, good overall health status, good support system/ coping skills, Prognosis may be limited due to chronic nature of impairments . The patient will benefit from skilled therapy services to meet the goals established for this plan of care as noted below. Goals for Episode of Care: established 08/17/24 Pt will demonstrate reduction of soft tissue restrictions. [place] in home exercise program. Patient will decrease pain rating by 2 points to meet minimal clinical important difference for numeric pain rating scale. Patient will demonstrate increase in R UE strength to 4+ to 5/5 during manual muscle testing in order to improve function for home management tasks, leisure / recreation skills, and prior functional tasks. Perform opening jars, vacuuming, and household cleaning with decreased report of symptoms/pain in 4-8 weeks. Improve postural awareness. Patient Goals: Any exercises that would help any of the pain the I get. Time Frame for Goals and Treatment : 10/17/24 Planned Interventions, Frequency, and Duration: Current Frequency: 1x every other week Duration: 8 weeks Total Number of Visits Planned: 4 Planned Treatment Interventions: Therapeutic exercise (16735), Neuromuscular re-education (12332), Manual therapy (20688), Self-prison management (91658), Patient/Family/Caregiver Education PLAN FOR NEXT VISIT: Assess performance of and response to HEP. Progress scapular stabilization exercises. May add MFR or soft tissue techniques as needed. Patient demonstrates good understanding of plan of care and treatment. The above goals and plan of care were discussed and agreed upon by patient/family. SUBJECTIVE: Had cleaned garage and lower level of house and overdid it. Pt states that her pain is pretty well gone, but still having numbness in hand. Notes pain is when she overdoes it. Was recommended possibly a sleeve to wear when uses arm a lot. Did a shoulder stretch that helped with the pain. Currently pain comes on armpit and down back a little bit. Uses ice, heat, as needed. Sweeping motion (vaccuuming) painful. Denies symptoms in arm other than hand numbness. Locates posterior axilla/latissimus area. To touch feels lightening. Also feels is irritated by stress. Patient Goals: Any exercises that would help any of the pain the I get. Functional Limitations: nothing, cleaning (Able to do all activities, just gets pain the next day if does too much. Vaccuuming (uses L arm to do). Opening jars (bothers/pain) in upper arm during and - may feel it next day.) Relevant History Right or Left Handed: Right Home Environment Patient Lives With: Spouse Intake Information: Prescription present Previous Treatment: (neurontin for R axillary nerve pain since breast surgery) Pain: Pain Pain Level: 1 (1 currently, up to 5-6/10 after overdoing it, can be 0 at times.) Pain Location: Axilla - Right, Shoulder - Right, Chest - Right Post Treatment Pain Post Treatment Pain Level: No Change PROMIS Scales 08/15/2024 03/20/2023 Higher is Better Phys Func - Score 37 (moderate dysfunction) 46 (within normal limits) Phys Func - Percentile 10 34 Self-Eff Symptom - Score 50 (Average) 48 (Average) Self-Eff Symptom - Percentile 50 42 T-scores: mean of general population = 50. 5 points is clinically meaningfully difference Percentiles provide an indication of how the patient's score ranks in relation to the general population. Higher percentile rankings indicate better function/quality of life. 50th percentile is the average of the general population and indicates half of respondents had a worse score. OBJECTIVE MEASURES WITH LEVEL OF FUNCTION: Lymphedema Presents with: Functional Limitations, Pain, Decreas (more content not included)... [facility] 08-17-2024 History of Present illness Narrative Images from the original note were not included. Episode Visit Count: 1 Therapist That Will Accept/Oversee The Plan Of Care: Farzana Hidalgo Start of Care Date: 08/17/24 Onset Date: 06/30/24 Plan of Care Certification Date: 08/17/24 Next Certification Due Date: 10/17/24 Patient Identified by Name and Date of : Yes REHABILITATION AND SPORTS THERAPY PHYSICAL THERAPY EVALUATION PLAN OF CARE: Assessment: Andre Luther presents with chief complaint of pain R posterior shld, lateral chest wall, latissimus region that interferes with nothing, cleaning (Able to do all activities, just gets pain the next day if does too much. Vaccuuming (uses L arm to do). Opening jars (bothers/pain) in upper arm during and - may feel it next day.) . The patient presents with impairments in overall function, strength, symptom management, and soft tissue restrictions. PROMIS (Patient-Reported Outcomes Measurement Information System) scores were reviewed and identified as a rehabilitation concern. Prognosis for therapy is Good due to: current objective clinical presentation, good overall health status, good support system/ coping skills, Prognosis may be limited due to chronic nature of impairments . The patient will benefit from skilled therapy services to meet the goals established for this plan of care as noted below. Goals for Episode of Care: established 08/17/24 Pt will demonstrate reduction of soft tissue restrictions. [place] in home exercise program. Patient will decrease pain rating by 2 points to meet minimal clinical important difference for numeric pain rating scale. Patient will demonstrate increase in R UE strength to 4+ to 5/5 during manual muscle testing in order to improve function for home management tasks, leisure / recreation skills, and prior functional tasks. Perform opening jars, vacuuming, and household cleaning with decreased report of symptoms/pain in 4-8 weeks. Improve postural awareness. Patient Goals: Any exercises that would help any of the pain the I get. Time Frame for Goals and Treatment : 10/17/24 Planned Interventions, Frequency, and Duration: Current Frequency: 1x every other week Duration: 8 weeks Total Number of Visits Planned: 4 Planned Treatment Interventions: Therapeutic exercise (40211), Neuromuscular re-education (56838), Manual therapy (19145), Self-prison management (02567), Patient/Family/Caregiver Education PLAN FOR NEXT VISIT: Assess performance of and response to HEP. Progress scapular stabilization exercises. May add MFR or soft tissue techniques as needed. Patient demonstrates good understanding of plan of care and treatment. The above goals and plan of care were discussed and agreed upon by patient/family. SUBJECTIVE: Had cleaned garage and lower level of house and overdid it. Pt states that her pain is pretty well gone, but still having numbness in hand. Notes pain is when she overdoes it. Was recommended possibly a sleeve to wear when uses arm a lot. Did a shoulder stretch that helped with the pain. Currently pain comes on armpit and down back a little bit. Uses ice, heat, as needed. Sweeping motion (vaccuuming) painful. Denies symptoms in arm other than hand numbness. Locates posterior axilla/latissimus area. To touch feels lightening. Also feels is irritated by stress. Patient Goals: Any exercises that would help any of the pain the I get. Functional Limitations: nothing, cleaning (Able to do all activities, just gets pain the next day if does too much. Vaccuuming (uses L arm to do). Opening jars (bothers/pain) in upper arm during and - may feel it next day.) Relevant History Right or Left Handed: Right Home Environment Patient Lives With: Spouse Intake Information: Prescription present Previous Treatment: (neurontin for R axillary nerve pain since breast surgery) Pain: Pain Pain Level: 1 (1 currently, up to 5-6/10 after overdoing it, can be 0 at times.) Pain Location: Axilla - Right, Shoulder - Right, Chest - Right Post Treatment Pain Post Treatment Pain Level: No Change PROMIS Scales 08/15/2024 03/20/2023 Higher is Better Phys Func - Score 37 (moderate dysfunction) 46 (within normal limits) Phys Func - Percentile 10 34 Self-Eff Symptom - Score 50 (Average) 48 (Average) Self-Eff Symptom - Percentile 50 42 T-scores: mean of general population = 50. 5 points is clinically meaningfully difference Percentiles provide an indication of how the patient's score ranks in relation to the general population. Higher percentile rankings indicate better function/quality of life. 50th percentile is the average of the general population and indicates half of respondents had a worse score. OBJECTIVE MEASURES WITH LEVEL OF FUNCTION: Lymphedema Presents with: Functional Limitations, Pain, Decreased knowledge of lymphedema management Comment: Pt denies any swelling, tightness, fullness, heaviness, indentations fwith elastic clothing or jewelry. No pain or discomfort in arm. (Only hand paresthesias intermittently) Lymphedema Contributing Factors: Radiation, Lymph Node Removal Skin: (normal color, good hydration) UE AROM R UE AROM: All within functional/symmetrical range, slight end range stretching (Cervical AROM; flex 55deg, ext 50 deg, lat flex 50deg B, R rot 60deg, L rot 70 deg.) L UE AROM: All WFL UE and Cervical Strength R UE Strength: 4/5 shld, sales account specialist 40# L UE Strength: 4+/5, sales account specialist 41# Vitals BP: (deferred today) Education: Education Learning Preferences: Demonstration, Explanation Barriers: None Learning/educational needs: Home exercise program, Plan of Care Education Provided: Yes, see treatment interventions for education provided Education Provided To: Patient Education Mode/Type: Demonstration, Explanation/Discussion, Literature/Printed Materials, Performance Response to Education/Teach Back: States/Identifies, Return Demonstration TREATMENT: PT Treatment Interventions: Therapeutic Exercise, Self-Correction Management Evaluation Therapeutic Exercise: 1: *supine butterfly stretch 3 x 30 sec 2: *standing goal post stretch 1 x 30 sec 3: *seated scapular retractions 10x 5 sec holds Skilled Intervention: Patient was educated in proper exercise technique and purpose for exercises. Skilled judgment was used in selection of appropriate interventions. Provided written instruction for home exercise program to facilitate proper performance and compliance. Correct performance of therapeutic exercises was facilitated with verbal and visual cuing. Patient education as noted. Self-Correction Management: 1: Educated pt on effects of surgery and radiation treatments on soft tissue. Educated in diagnosis and evaluation findings in relation to posture, muscular imbalance, and muscular weakness/fatigue. 2: Advised pt to note occurrance of hand numbness in relation to posture/positioning, and activities. Skilled Intervention: Skilled judgment in the selection of proper modification for activity of daily living/home management based on clinical presentation, deficits, and needs. Reviewed patient specific diagnosis in relation to activities of daily living/home management. Billing * Evaluation Low Complexity: 1 Unit Therapeutic Exercise Treatment Minutes: 23 Self-Care/Home Management Treatment Minutes: 15 Skilled Treatment Time Minutes (timed and untimed codes): 58 Total Session Time (minutes): 58 Session Start Time : 1310 Session Stop Time : 1408 Farzana Hidalgo PT Program_ID:[id number] Access Code: [email or web address] URL: [email or web address] Date: 08-17-2024 Prepared By: Farzana Hidalgo Program Notes Exercises - Supine Chest Stretch with Elbows Bent - 1 x daily - 7 x weekly - sets - 3 reps - Supine Shoulder External Rotation in Abduction - 1 x daily - 7 x weekly - sets - 10 reps - Seated Scapular Retraction - 1 x daily - 7 x weekly - 1 sets - 10 reps documented in this encounter [facility] 08-13-2024 Telephone encounter Note Prescription Refill Information The patient has been identified by name and date of : Yes Caregiver verified no other encounters exist for this prescription request: Yes Caregiver confirmed with patient/requestor that no other refills are due, in the near future, with this provider at this time: Yes /The last office visit in the department: 07/16/2024 Does the patient have a future office visit with this provider/department: Yes Requested Prescriptions Pending Prescriptions Disp Refills gabapentin (NEURONTIN) 300 mg capsule [Pharmacy Med Name: GABAPENTIN 300MG CAPS] 30 capsule 5 Sig: Take 1 capsule by mouth daily at bedtime. Lisa Nguyen LPN August 13, 2024 7:35 AM [facility] 08-13-2024 Miscellaneous Notes Prescription Refill Information The patient has been identified by name and date of : Yes Caregiver verified no other encounters exist for this prescription request: Yes Caregiver confirmed with patient/requestor that no other refills are due, in the near future, with this provider at this time: Yes /The last office visit in the department: 07/16/2024 Does the patient have a future office visit with this provider/department: Yes Requested Prescriptions Pending Prescriptions Disp Refills gabapentin (NEURONTIN) 300 mg capsule [Pharmacy Med Name: GABAPENTIN 300MG CAPS] 30 capsule 5 Sig: Take 1 capsule by mouth daily at bedtime. Lisa Nguyen LPN August 13, 2024 7:35 AM documented in this encounter [facility] 07-16-2024 History of Present illness Narrative Chief Complaint Patient presents with: Established Patient HPI: Andre Luther is a 74 year old female who presents here today for complaints of R axillary pain. Per Dr. Deng's previous note: H/o PVCs, GERD and osteoarthritis of the left knee. Underwent ultrasound-guided core needle biopsy on 08/28/2018. Pathology: Right breast, ultrasound-guided needle core biopsy - Invasive ductal carcinoma, nuclear grade 1. - Estrogen receptor is positive greater than 95% nuclei staining, outside slide reviewed. - Progesterone receptor is positive 80% of nuclei staining, outside slide reviewed. - HER2 by immunohistochemistry is negative +0, outside slide reviewed. Underwent a right partial mastectomy with sentinel lymph node biopsy on 09/15/2018. Pathology: 1. Right axillary sentinel lymph node #1, resection (A) - Micrometastatic adenocarcinoma present in one of two lymph nodes (1/2). See comment. 2. Right breast partial mastectomy (B) - Invasive ductal carcinoma with tubular features, histologic grade 1. Prior biopsy site and clip are identified. See synoptic template. 3. Right breast deep, inferior, superior, medial, anterior, lateral margins, resection (C-H) - Fibrofatty breast tissue with no tumor seen. Oncotype DX recurrence score was 14. Previous therapy: Right partial mastectomy with sentinel node dissection (Dr. Reinoso; September 15, 2018, 1.5 cm , 1 of 2 lymph nodes positive with micro mets (1.1 mm)) Radiation therapy (Dr. Baxter, completed therapy on November 19, 2018) Patient declined endocrine therapy Pt. cleaned her garage, basement, wiped doors and slaughter. I over did it and paid for it. R axillary pain and R arm aches since. I haven't stopped. My granddaughter is getting in 3 weeks. I've been stressed. Spouse has been having back pain r/t spinal stenosis and will need surgery. R axillary nerve pain has been chronic since surgery-Pt. has been taking neurontin faithfully. I feel so much better today. Pain is about a 1. Appetite:Good. Wt. up. Energy level:Good. Denies fevers or recent illness. Resp:denies cough or sob Cardiac:denies chest pain/palpitations GI:denies abd pain, n/v, moving bowels regularly :denies dysuria/hematuria Extrem:denies pain Endo:occ. hot flashes Neuro:denies symptoms of neuropathy Skin:denies rashes Heme:denies bleeding The ROS is otherwise negative. Past medical history, appointments, medications, allergies reviewed. No changes. EXAM: BP 151/91 Pulse 80 Temp 36.8 C (98.3 F) (Temporal) Wt 67 kg (147 lb 11.3 oz) SpO2 99% BMI 27.91 kg/m APPEARANCE Well appearing, alert, in no acute distress, well-hydrated, well nourished. HEART RRR with normal S1 and S2, no murmurs LUNG clear to auscultation BREAST FEMALE no mass/nodule b/l, R lateral scar/radiation changes LYMPH NODES No cervical lymphadenopathy, No supraclavicular lymphadenopathy, and No axillary lymphadenopathy. ABDOMEN bowel sounds normoactive, soft, non-tender EXTREMITIES No edema NEURO Awake, alert and oriented x 3, Normal gait, and No involuntary motions. SKIN Skin color, texture, turgor normal, no suspicious rashes or lesions ASSESSMENT/PLAN: 1. Encounter for follow-up surveillance of breast cancer - ICD9: V67.9, V10.3, ICD10: Z08, Z85.3 (primary diagnosis) 2. Personal history of malignant neoplasm of breast - ICD9: V10.3, ICD10: Z85.3 pT1c pN1(mi) ER/AR positive (95% and 80% respectively), HER-2 negative (0 on IHC) infiltrating ductal carcinoma the right breast. Oncotype current score 14. Received adjuvant radiation to the breast. Declined adjuvant endocrine therapy. - Chronic intermittent lancinating pain right axilla into superior portion of the breast. Worse pain after cleaning as above. - No concerning findings on exam. - Continue neurontin. - Mammogram due in 2023-as scheduled. - PT consult for ?RUE/R axillary lymphedema. - Cancel OV in July-will call pt. with mammogram results and schedule next OV after that. - Pt. aware to call office with any questions/concerns. The sensitive examination was discussed with the Patient or Patient's Authorized Factory Clerk. As applicable, any other physician, advance practice provider, medical student, or other health professional student that will be observing or involved in the sensitive examination for educational or training purposes was discussed with the Patient or Authorized Factory Clerk. The Patient or Authorized Factory Clerk has agreed to proceed with the sensitive examination. (Sensitive examination includes inspection and/or palpation of the breasts, pelvis, prostate and anorectal regions) The patient indicates understanding of these issues and agrees with the plan. All documentation from previous visit of 02/18/24-Dr. Deng/myself was copied and pasted, documentation has been reviewed and edited as necessary for today's visit. Radha Her APRN.PLASTERING SUPERVISOR documented in this encounter [facility] 07-15-2024 Telephone encounter Note Called patient, no answer, left a detailed message regarding gabapentin. Patient is coming in tomorrow for an OV. Viktoria Clarke RN [facility] 07-15-2024 Miscellaneous Notes Called patient, no answer, left a detailed message regarding gabapentin. Patient is coming in tomorrow for an OV. Viktoria Clarke RN Scheduled with patient PSS- please call/schedule patient for an OV. When I spoke to patient earlier, I believe she said she would not be available from 3-4:30 pm today. Thank you. Viktoria Clarke, RN Please ask pt. if she has been taking her neurontin faithfully? OV when able. Radha Her APRN.PLASTERING SUPERVISOR Care Coordination Triage Note [facility] Situation: Patient reports Other numbness in right hand, thick feeling in right armpit, pain Background: Breast Cancer. Per last OV notes: -Declined adjuvant endocrine therapy. - Chronic intermittent lancinating pain right axilla into superior portion of the breast. managed with gabapentin. Tolerating current dose well. Current dose of gabapentin is 200 mg AM, 300 mg at bedtime. Assessment: GENERALIZED PAIN Where is the pain? It travels for awhile it was coming up across my breast, then it was the center of my back going down. Pain at surgicaly site on right breast armpit, front of my chest, and around to my back. When did you first notice the pain? 6 weeks ago I overdid cleaning one day last month. Had an OV with Dr. Huynh afterwards. He said she overworked herself and now if I do too much of anything, it's affecting my right side. Patient stated she has been under a lot of stress. Granddaughter is getting soon and has been in and out of the hospital, has health issues. How intense is the pain right now (scale of 1-10)? 1-2/10 How do you describe the pain: sore Has the pain changed since it started? Yes, pain has been traveling into her back which before, it was always in the right breast area. Is the pain constant or intermittent? Has pain most days but the pain doesn't stay in the same spot. What makes it better? Overdoing it. What makes it worse? Everything hurts more when she sits down and has quiet time. Everything hurts in those areas. Have you had this pain before? yes What are you taking anything for the pain? Tylenol and ibuprofen (include OTC, prescription, supplements) Are you doing anything else to help with the pain other than medications? (heat, cold, movement, stretching, etc) heat, cold, topical creams Intermittent right hand numbness x 6 weeks. Denies redness or swelling in hand. Thickness under my armpit. When she puts her arm down she has a thickness under my armpit. Patient stated she has had this before on and off and was checked and everything was good. Patient stated when she had this pain before, her hand was affected like it is now with the numbness. Denies redness, the skin being warm to touch, or swelling. Mammogram next month with OV to follow. Recommendations: Per RNCC, patient directed to: Manage at home. Instructions provided. Patient is requesting an OV. Viktoria Clarke RN July 15, 2024 2:05 PM Patient called stating that for around 6 weeks she has been having right hand numbness that comes and goes, right arm in armpit she has a thickness feeling. Pain across shoulder and breast. She is asking if she should be seen. documented in this encounter [facility] 07-15-2024 Telephone encounter Note Scheduled with patient [facility] Work Phone: 07-15-2024 Telephone encounter Note PSS- please call/schedule patient for an OV. When I spoke to patient earlier, I believe she said she would not be available from 3-4:30 pm today. Thank you. Viktoria Clarke RN [facility] 07-15-2024 Telephone encounter Note Please ask pt. if she has been taking her neurontin faithfully? OV when able. Radha Her APRN.PLASTERING SUPERVISOR [facility] 07-15-2024 Telephone encounter Note Care Coordination Triage Note [facility] Situation: Patient reports Other numbness in right hand, thick feeling in right armpit, pain Background: Breast Cancer. Per last OV notes: -Declined adjuvant endocrine therapy. - Chronic intermittent lancinating pain right axilla into superior portion of the breast. managed with gabapentin. Tolerating current dose well. Current dose of gabapentin is 200 mg AM, 300 mg at bedtime. Assessment: GENERALIZED PAIN Where is the pain? It travels for awhile it was coming up across my breast, then it was the center of my back going down. Pain at surgicaly site on right breast armpit, front of my chest, and around to my back. When did you first notice the pain? 6 weeks ago I overdid cleaning one day last month. Had an OV with Dr. Huynh afterwards. He said she overworked herself and now if I do too much of anything, it's affecting my right side. Patient stated she has been under a lot of stress. Granddaughter is getting soon and has been in and out of the hospital, has health issues. How intense is the pain right now (scale of 1-10)? 1-2/10 How do you describe the pain: sore Has the pain changed since it started? Yes, pain has been traveling into her back which before, it was always in the right breast area. Is the pain constant or intermittent? Has pain most days but the pain doesn't stay in the same spot. What makes it better? Overdoing it. What makes it worse? Everything hurts more when she sits down and has quiet time. Everything hurts in those areas. Have you had this pain before? yes What are you taking anything for the pain? Tylenol and ibuprofen (include OTC, prescription, supplements) Are you doing anything else to help with the pain other than medications? (heat, cold, movement, stretching, etc) heat, cold, topical creams Intermittent right hand numbness x 6 weeks. Denies redness or swelling in hand. Thickness under my armpit. When she puts her arm down she has a thickness under my armpit. Patient stated she has had this before on and off and was checked and everything was good. Patient stated when she had this pain before, her hand was affected like it is now with the numbness. Denies redness, the skin being warm to touch, or swelling. Mammogram next month with OV to follow. Recommendations: Per RNCC, patient directed to: Manage at home. Instructions provided. Patient is requesting an OV. Viktoria Clarke RN July 15, 2024 2:05 PM [facility] 07-15-2024 Telephone encounter Note Patient called stating that for around 6 weeks she has been having right hand numbness that comes and goes, right arm in armpit she has a thickness feeling. Pain across shoulder and breast. She is asking if she should be seen. [facility] 07-01-2024 History of Present illness Narrative Patient presents with: 6 Month Exam HPI: Patient presents today for office visit for follow up. Mucinex works. No cough or congestion. No numbness or tingling. No shortness of breath No chest pain. No gerd. Still following with oncology. No myalgias. Home bp is doing well. Note was copied and pasted, without alteration from:last ov: Seen in ER on 06/10. Had a number of complaints. Also had discomfort between her shoulder blade. Can get that frequently too. Had been doing washing her garage door slaughter and garage door. She also was doing a lot of extra cleaning all in one day. Woke up that morning. Headache was not the worst she has had. Was mild and frontal. Had right handed numbness but gets that frequently since her breast cancer surgery. Had a headache and lightheaded. Legs also felt a little tingly and weak Also labs were tingling. Everthing seems better except the hand is still bothering her occasionally. Her bp was up. No trauma. Has had some sinus congestion or allergies for several weeks. Suggested regular mucinx. No fever or chills. No new cough. No chest pain No shortness of breath. Labs and work up negative except for mildly decreased white count. EKG was normal. MEDICATIONS: Latest Ref Rng 09/03/2023 06/25/2024 WBC 3.70 - 11.00 k/uL 4.71 5.20 RBC 3.90 - 5.20 m/uL 4.41 4.22 Hemoglobin 11.5 - 15.5 g/dL 14.6 13.9 Hematocrit 36.0 - 46.0 % 44.7 43.6 MCV 80.0 - 100.0 fL 101.4 (H) 103.3 (H) MCH 26.0 - 34.0 pg 33.1 32.9 MCHC 30.5 - 36.0 g/dL 32.7 31.9 RDW-CV 11.5 - 15.0 % 11.9 11.9 Platelet Count 150 - 400 k/uL 169 187 MPV 9.0 - 12.7 fL 11.9 12.3 Neut% % 63.0 62.1 Abs Neut (ANC) 1.45 - 7.50 k/uL 2.97 3.23 Lymph% % 22.7 26.3 Abs Lymph 1.00 - 4.00 k/uL 1.07 1.37 [place]% % 8.5 6.9 Abs [place] <0.87 k/uL 0.40 0.36 Eosin% % 3.6 3.7 Abs Eosin <0.46 k/uL 0.17 0.19 Baso% % 1.1 0.8 Abs Baso <0.11 k/uL 0.05 0.04 Immature Gran % % 1.1 0.2 IMMATURE GRANS (ABS) <0.10 k/uL 0.05 <0.03 NRBC /100 WBC 0.0 0.0 Absolute nRBC <0.01 k/uL <0.01 <0.01 DTYPE Auto Auto Protein, Total 6.3 - 8.0 g/dL 7.2 Protein, Total 6.3 - 8.0 g/dL 7.1 Albumin 3.9 - 4.9 g/dL 4.4 Calcium 8.5 - 10.2 mg/dL 9.7 Bilirubin, Total 0.2 - 1.3 mg/dL 0.5 Alkaline Phosphatase 34 - 123 U/L 84 AST 13 - 35 U/L 29 ALT 7 - 38 U/L 18 Glucose 74 - 99 mg/dL 94 BUN 7 - 21 mg/dL 13 Creatinine 0.58 - 0.96 mg/dL 0.74 Sodium 136 - 144 mmol/L 142 Potassium 3.7 - 5.1 mmol/L 4.4 Chloride 97 - 105 mmol/L 103 CO2 22 - 30 mmol/L 26 Anion Gap 9 - 18 mmol/L 13 eGFR >=60 mL/min/1.73m 87 Albumin 3.43 - 5.41 g/dL 4.52 Alpha 1 Globulin 0.18 - 0.43 g/dL 0.26 Alpha 2 Globulin 0.42 - 0.98 g/dL 0.67 Beta Globulin 0.61 - 1.17 g/dL 0.84 Gamma Globulin 0.53 - 1.51 g/dL 0.81 Interpretation (Prot Electro) No definitive M protein is identified on protein electrophoresis. No definitive M protein is identified on protein electrophoresis. M-Protein Location -- M-Protein Concentration <=0.00 g/dL 0.00 SPE Staff Review Reviewed by Tommy Cruz MD, Ph.D ([id number]) TSH 0.270 - 4.200 mIU/L 3.610 Vitamin B12 232 - 1,245 pg/mL 786 Folate >4.7 ng/mL >20.0 Legend: (H) High ALLERGIES: ALLERGIES Allergen Reactions Cephalosporins Rash Codeine GI Upset Dust Itching Nortriptyline Intolerance Elevated blood pressure and pulse. Ragweed Doxycycline Hyclate Intolerance Reflux Pyridium [Phenazopy* Other: See Comments dizziness PAST MEDICAL HISTORY Diagnosis Date Asthma Breast cancer (HCC) right s/p lumpectomy 08/2017, and radiation Macular cyst, hole, or pseudohole of retina Both eyes Osteopenia after menopause PVC (premature ventricular contraction) Shingles PAST SURGICAL HISTORY Procedure Laterality Date BREAST BIOPSY INCISIONAL RIGHT Right 07/2018 BREAST LUMPECTOMY HX Right 09/15/2018 Right NL PM/SNBx: [id number], ER/AR+, HER2 Neg, Grade 1, IDC w/tubular features; 1/2nodes COLONOSCOPY 07/2007, 01/14 nevus 1980 face. POST-CATARACT LASER SURGERY 06/26/2012 Yag Capsulotomy OS VITRECTOMY FOR MACULAR HOLE Left 06/06/2011 L eye. VITRECTOMY MECHANICAL PARS PLANA Right 02/20/2012 [place] Vitrectomy ,MP, PCIOL OD FAMILY HISTORY Problem Relation Age of Onset Cataract Mother other (osteopenia) Mother Osteopenia Stroke Mother Heart Father SC Lipids Father High Cholesterol other (Macular Degeneration) Maternal Grandfather Heart Attack Paternal Grandmother Heart Attack Paternal Grandfather Blood Clots Daughter Coronary Artery Disease Paternal Aunt Coronary Artery Disease Paternal Uncle Social History Tobacco Use Smoking status: Never Smokeless tobacco: Never Vaping Use Vaping status: Never Used Substance Use Topics Alcohol use: No Drug use: No Reviewed current medications, allergies, past medical history, surgical history, family history and social history today. REVIEW OF SYSTEMS No gi or gu issues. All other reviewed and negative other than HPI. HEALTH MAINTENANCE: Reviewed health maintenance issues today and recommended the following in detail. Mammogram Screening due on 08/19/2024-is ordered by oncology. VITALS: BP 132/80 Pulse 87 Wt 65.8 kg (145 lb 1 oz) SpO2 99% BMI 27.41 kg/m Last 4 Encounter Wt Readings: Date: Wt: 07/01/2024 65.8 kg (145 lb 1 oz) 06/15/2024 66.5 kg (146 lb 9.7 oz) 03/09/2024 65.8 kg (145 lb) 02/18/2024 65.6 kg (144 lb 11.2 oz) PHYSICAL EXAMINATION: General appearance: Well appearing, alert, in no acute distress, well-hydrated, well nourished. Skin: Skin color, texture, turgor normal, no suspicious rashes or lesions Head: Normocephalic, no masses, lesions, tenderness or abnormalities Neck: Supple, no adenopathy; thyroid symmetric, normal size, no bruits Lungs: Lungs clear to auscultation. No wheezing, rhonchi, rales Heart: RRR without murmur, gallop, or rubs. No ectopy Abdomen: Normal abdominal exam, Abdomen soft, non-tender. Bowel sounds normal. No masses, organomegaly Extremities: No deformities, edema, skin discoloration, clubbing or cyanosis. Good capillary refill. ASSESSMENT/PLAN: 1. Elevated blood pressure reading without diagnosis of hypertension - ICD9: 796.2, ICD10: R03.0 (primary diagnosis) - resolved. 2. Mild intermittent asthma without complication - ICD9: 493.90, ICD10: J45.20 - Continue current medications. Notify us if any difficulties are noted. - ALBUTEROL SULFATE HFA 90 MCG/ACTUATION AEROSOL INHALER 3. PVC (premature ventricular contraction) - ICD9: 427.69, ICD10: I49.3 - stable. 4. GERD without esophagitis - ICD9: 530.81, ICD10: K21.9 - continue meds. Call if any issues. 5. Malignant neoplasm of upper-outer quadrant of right breast in female, estrogen receptor positive (HCC) - ICD9: 174.4, V86.0, ICD10: C50.411, Z17.0 - per oncology 6. Osteopenia, unspecified location - ICD9: 733.90, ICD10: M85.80 - done 01/21 7. Allergy, subsequent encounter - ICD9: V58.89, ICD10: T78.40XD - stable. 8. Mixed hyperlipidemia - ICD9: 272.2, ICD10: E78.2 - follow labs. - COMPREHENSIVE METABOLIC PANEL - LIPID PANEL BASIC Abhishek Huyhn RTO in one year. and prn. documented in this encounter [facility] 06-15-2024 History of Present illness Narrative Patient presents with: ER F/U HPI: Patient presents today for office visit for follow up. Seen in ER on 06/10. Had a number of complaints. Also had discomfort between her shoulder blade. Can get that frequently too. Had been doing washing her garage door slaughter and garage door. She also was doing a lot of extra cleaning all in one day. Woke up that morning. Headache was not the worst she has had. Was mild and frontal. Had right handed numbness but gets that frequently since her breast cancer surgery. Had a headache and lightheaded. Legs also felt a little tingly and weak Also labs were tingling. Everthing seems better except the hand is still bothering her occasionally. Her bp was up. No trauma. Has had some sinus congestion or allergies for several weeks. Suggested regular mucinx. No fever or chills. No new cough. No chest pain No shortness of breath. Labs and work up negative except for mildly decreased white count. EKG was normal. MEDICATIONS: Current Outpatient Medications Medication Sig gabapentin (NEURONTIN) 300 mg capsule Take 1 capsule by mouth daily at bedtime for 180 days. gabapentin (NEURONTIN) 100 mg capsule Two capsules (200mg) by mouth every morning. rosuvastatin (CRESTOR) 10 mg tablet Take 1 tablet by mouth daily at bedtime. etodolac (LODINE) 400 mg tablet Take 1 tablet by mouth every other day. Cholecalciferol, Vitamin D3, 125 mcg (5,000 unit) cap Take 1 capsule by mouth once daily. ipratropium bromide (ATROVENT) 42 mcg (0.06 %) nasal spray Use 2 Sprays in the nose four times daily. prn carboxymethylcellulose sodium (REFRESH OPHTHALMIC) Use 1 Drop in eyes as needed. propylene glycol (SYSTANE COMPLETE OPHTHALMIC) Use 1 Drop in eyes as needed. Azelastine HCl (OPTIVAR) 0.05 % ophthalmic solution Use 1 Drop in both eyes twice daily as needed (allergies). famotidine (PEPCID ORAL) Take 1 tablet by mouth twice daily. albuterol HFA (VENTOLIN HFA) 90 mcg/actuation inhaler Inhale 2 Puffs as instructed every 4 hours as needed. psyllium husk (METAMUCIL ORAL) Take 1 teaspoonful by mouth two times a day. calcium carbonate (CALCIUM 600 ORAL) Take 600 mg by mouth once daily. vit A,C,X-Jdiy-Lzrxor (PRESERVISION AREDS) 7,160-113-100 bgay-nd-agwp tab Take 1 tablet by mouth twice daily. Bjxl-Hazg-FCX#5-A-Eeqk-Trevon-Bor (OSTEO BI-FLEX) 750-625-30 mg Tab Take 1 tablet by mouth twice daily. No current facility-administered medications for this visit. ALLERGIES: ALLERGIES Allergen Reactions Cephalosporins Rash Codeine GI Upset Dust Itching Nortriptyline Intolerance Elevated blood pressure and pulse. Ragweed Doxycycline Hyclate Intolerance Reflux Pyridium [Phenazopy* Other: See Comments dizziness PAST MEDICAL HISTORY Diagnosis Date Asthma Breast cancer (HCC) right s/p lumpectomy 08/2017, and radiation Macular cyst, hole, or pseudohole of retina Both eyes Osteopenia after menopause PVC (premature ventricular contraction) Shingles PAST SURGICAL HISTORY Procedure Laterality Date BREAST BIOPSY INCISIONAL RIGHT Right 07/2018 BREAST LUMPECTOMY HX Right 09/15/2018 Right NL PM/SNBx: [id number], ER/AR+, HER2 Neg, Grade 1, IDC w/tubular features; 1/2nodes COLONOSCOPY 07/2007, 01/14 [place] 1980 face. POST-CATARACT LASER SURGERY 06/26/2012 Yag Capsulotomy OS VITRECTOMY FOR MACULAR HOLE Left 06/06/2011 L eye. VITRECTOMY MECHANICAL PARS PLANA Right 02/20/2012 [place] Vitrectomy ,MP, PCIOL OD FAMILY HISTORY Problem Relation Age of Onset Cataract Mother other (osteopenia) Mother Osteopenia Stroke Mother Heart Father SC Lipids Father High Cholesterol other (Macular Degeneration) Maternal Grandfather Heart Attack Paternal Grandmother Heart Attack Paternal Grandfather Blood Clots Daughter Coronary Artery Disease Paternal Aunt Coronary Artery Disease Paternal Uncle Social History Tobacco Use Smoking status: Never Smokeless tobacco: Never Vaping Use Vaping status: Never Used Substance Use Topics Alcohol use: No Drug use: No Reviewed current medications, allergies, past medical history, surgical history, family history and social history today. REVIEW OF SYSTEMS No gi or gu issues. All other reviewed and negative other than HPI. HEALTH MAINTENANCE: Reviewed health maintenance issues today and recommended the following in detail. Depression Screening Never done Anxiety Screening Never done Covid-19 Vaccine( season) due on 05/31/2024 Influenza Vaccine(1) due on 05/31/2024 Mammogram Screening - ordered by oncology. VITALS: BP 132/88 Pulse (!) 46 Wt 66.5 kg (146 lb 9.7 oz) SpO2 95% BMI 27.70 kg/m Last 4 Encounter Wt Readings: Date: Wt: 06/15/2024 66.5 kg (146 lb 9.7 oz) 03/09/2024 65.8 kg (145 lb) 02/18/2024 65.6 kg (144 lb 11.2 oz) 12/23/2023 66.2 kg (146 lb) PHYSICAL EXAMINATION: General appearance: Well appearing, alert, in no acute distress, well-hydrated, well nourished. Skin: Skin color, texture, turgor normal, no suspicious rashes or lesions Head: Normocephalic, no masses, lesions, tenderness or abnormalities Lungs: Lungs clear to auscultation. No wheezing, rhonchi, rales Heart: RRR without murmur, gallop, or rubs. No ectopy Abdomen: Normal abdominal exam, Abdomen soft, non-tender. Bowel sounds normal. No masses, organomegaly Extremities: No deformities, edema, skin discoloration, clubbing or cyanosis. Good capillary refill. Musculoskeletal: No joint swelling, deformity, or tenderness Peripheral pulses: Normal Neuro: Gait normal. Reflexes normal and symmetric. Sensation grossly intact., Negative findings: mental status intact, muscle tone normal ASSESSMENT/PLAN: 1. Elevated blood pressure reading without diagnosis of hypertension - ICD9: 796.2, ICD10: R03.0 (primary diagnosis) - resolved. 2. Mild intermittent asthma without complication - ICD9: 493.90, ICD10: J45.20 - stable. 3. GERD without esophagitis - ICD9: 530.81, ICD10: K21.9 - stable 4. Malignant neoplasm of upper-outer quadrant of right breast in female, estrogen receptor positive (HCC) - ICD9: 174.4, V86.0, ICD10: C50.411, Z17.0 - stable 5. Primary osteoarthritis of left knee - ICD9: 715.16, ICD10: M17.12 - stable. 6. Lightheaded - ICD9: 780.4, ICD10: R42 -resolved. Call if recurs. Suspect her issues were due to overdoing it. 7. Numbness of right hand - ICD9: 782.0, ICD10: R20.0 - call if worsens. 8. Leukopenia, unspecified type - ICD9: 288.50, ICD10: D72.819 - recheck before next ov. Red flags for re-assessment reviewed with patient in detail. - COMPLETE BLOOD COUNT AND DIFFERENTIAL 9. Screening for depression - ICD9: V79.0, ICD10: Z13.31 - DEPRESSION SCREENING 10. Encounter for screening examination for other mental health and behavioral disorders - ICD9: V79.8, ICD10: Z13.3 - ANXIETY SCREENING Abhishek Huynh RTO at next appt and check labs before then. and prn. documented in this encounter [facility] 05-04-2024 History of Present illness Narrative 1. 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 Kwame lawler great -monitor 2. Regular astigmatism of both eyes Finalized spec rx 3. Meibomian gland dysfunction (MGD) of upper and lower lids of both eyes 4. Dry eye syndrome of bilateral lacrimal glands Continue artificial tears 5. Macular hole, bilateral Continue annual follow-up with Dr. Brown Follow-up in 1 year for complete eye exam Felicitas Gonzales, OD May 04, 2024 1:05 PM documented in this encounter [facility] 04-14-2024 Telephone encounter Note Spoke with the patient and got her onto the schedule to see Dr. Gonzales on 05/04/24 at 12:30pm. Informed the patient that once the schedulers book the appointment it will reflex on mychart. Please advise SHARYN Quintero [facility] 04-14-2024 Miscellaneous Notes Spoke with the patient and got her onto the schedule to see Dr. Gonzales on 05/04/24 at 12:30pm. Informed the patient that once the schedulers book the appointment it will reflex on mychart. Please advise SHARYN Quintero Patient called in and needed an appointment in 3 weeks from her eye surgury that was on 04/06/2024. Patient saw the surgeon yesterday 04/13/2024 and they told her to see Dr Gonzales in [address] Gonzales does not have anything till May. Patient is upset as she stated that she can not wait that long. Patient is requesting that a nurse call her as to what she should do and would like to know if there is anyway that she can come in 3 weeks? Phone on file is correct. Thank you Adele Garcia documented in this encounter [facility] 04-14-2024 Telephone encounter Note Patient called in and needed an appointment in 3 weeks from her eye surgury that was on 04/06/2024. Patient saw the surgeon yesterday 04/13/2024 and they told her to see Dr Gonzales in [address] Gonzales does not have anything till Sep. Patient is upset as she stated that she can not wait that long. Patient is requesting that a nurse call her as to what she should do and would like to know if there is anyway that she can come in 3 weeks? Phone on file is correct. Thank you Adele Garcia [facility] 04-13-2024 History of Present illness Narrative ASSESSMENT/PLAN: 1. 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 I have seen and examined Ander Luther. I have discussed the case and the management of this patient's care with the Resident/Fellow, if applicable. I also have reviewed and agree with the assessment and plan as stated above and agree with all of its relevant components. Christopher Puente MD documented in this encounter [facility] 04-06-2024 Note Date of Procedure 04/06/2024 Carmen Protocol Safety Checklist Sign In: A moment to CARE completed, Special equipment verified, Appropriate PPE verified, Patient name, date of , allergies and intended procedure verified. Provider Confirms: Intended patient and procedure match the source document, Consent documented and matches the intended procedure, Correct side/site marked visible. No relevant labs, photos, and/or imaging studies to review. No medications required for procedure. No fire risk. No implants. Anesthesia 1-2 drops Topical 0.5% Proparacaine. Instrument Used 15 blade. Post-procedure Medication 1 drop Ciloxan ophthalmic solution. Home Going Prescription Prescription given to patient - see chart for medication list. Sign Out Sign out discussion completed, Post-procedure follow up management communicated, All instruments, equipment, and/or possible retained foreign bodies accounted for. No specimens. Notes The peripheral (5) mm of corneal epithelium was debrided. Subepithelial dystrophic nodules of fibrous tissue were excised with a combination of sharp and blunt dissection. Carranza's layer was gently polished with the blade until all irregularities were smooth. [facility] 04-06-2024 Note Date of Procedure 04/06/2024 Carmen Protocol Safety Checklist Sign In: A moment to CARE completed, Special equipment verified, Appropriate PPE verified, Patient name, date of , allergies and intended procedure verified. Provider Confirms: Consent documented and matches the intended procedure, Intended patient and procedure match the source document, Correct side/site marked visible. No relevant labs, photos, and/or imaging studies to review. No medications required for procedure. No fire risk. No implants. Anesthesia 1-2 drops Topical 0.5% Proparacaine. Instrument Used 15 blade. Post-procedure Medication None. Home Going Prescription Prescription given to patient - see chart for medication list. Sign Out Sign out discussion completed, All instruments, equipment, and/or possible retained foreign bodies accounted for, Post-procedure follow up management communicated. No specimens. Notes The peripheral (5) mm of corneal epithelium was debrided. Subepithelial dystrophic nodules of fibrous tissue were excised with a combination of sharp and blunt dissection. Carranza's layer was gently polished with the blade until all irregularities were smooth. [facility] 04-06-2024 History of Present illness Narrative ASSESSMENT/PLAN: 1. 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 I have seen and examined Andre Luther. I have discussed the case and the management of this patient's care with the Resident/Fellow, if applicable. I also have reviewed and agree with the assessment and plan as stated above and agree with all of its relevant components. Christopher Puente MD documented in this encounter [facility] 04-01-2024 History of Present illness Narrative Images from the original note were not included. SERVICE DATE: April 01, 2024 PCP: Abhishek Huynh MD Subjective Patient ID: Andre is a 74 year old female. Chief Complaint: Patient presents with: Right lower leg pain PAIN EVALUATION 03/23/2024205503/30/20242223 Pain Location: Leg-Right Leg-Right Description: Sharp Sharp Duration Units: Weeks Weeks Frequency: Intermittent Intermittent Intervention/Comfort measure: Medication Medication HPI Patient presents today for evaluation of right anterior knee and lower leg pain. She states the pain started about 7 weeks ago and was at its worst about 4 weeks ago. She states the pain would be the worst in the morning when she first woke up, making it very difficult to even stand or walk. As the day went by she states that symptoms would improve and sometimes to be absent altogether. She denies any leg weakness, foot drop, difficulty with walking due to foot or ankle weakness. SHe denies any low back pain. He began using topical lidocaine to the anterior ordoñez and states that it helped significantly reduce the pain. Review of Systems ACTIVE PROBLEM LIST Primary Osteoarthritis of Left Knee Mild Intermittent Asthma Without Complication Osteopenia Malignant Neoplasm of Upper-Outer Quadrant of Right Breast in Female, Estrogen Receptor Positive (Hcc) Gerd Without Esophagitis Elevated Blood Pressure Reading Without Diagnosis of Hypertension Pvc (Premature Ventricular Contraction) Abnormal Stress Test Allergy Rectocele Cystocele, Midline PAST MEDICAL HISTORY Diagnosis Date Asthma Breast cancer (HCC) right s/p lumpectomy 08/2017, and radiation Macular cyst, hole, or pseudohole of retina Both eyes Osteopenia after menopause PVC (premature ventricular contraction) Shingles PAST SURGICAL HISTORY Procedure Laterality Date BREAST BIOPSY INCISIONAL RIGHT Right 07/2018 BREAST LUMPECTOMY HX Right 09/15/2018 Right NL PM/SNBx: [id number], ER/AR+, HER2 Neg, Grade 1, IDC w/tubular features; 1/2nodes COLONOSCOPY 07/2007, 01/14 [place] 1980 face. POST-CATARACT LASER SURGERY 06/26/2012 Yag Capsulotomy OS VITRECTOMY FOR MACULAR HOLE Left 06/06/2011 L eye. VITRECTOMY MECHANICAL PARS PLANA Right 02/20/2012 [place] Vitrectomy ,[place], PCIOL OD FAMILY HISTORY Problem Relation Age of Onset Cataract Mother other (osteopenia) Mother Osteopenia Stroke Mother Heart Father SC Lipids Father High Cholesterol other (Macular Degeneration) Maternal Grandfather Heart Attack Paternal Grandmother Heart Attack Paternal Grandfather Blood Clots Daughter Coronary Artery Disease Paternal Aunt Coronary Artery Disease Paternal Uncle Social History Tobacco Use Smoking status: Never Smokeless tobacco: Never Vaping Use Vaping Use: Never used Substance Use Topics Alcohol use: No Drug use: No ALLERGIES Allergen Reactions Cephalosporins Rash Codeine GI Upset Dust Itching Nortriptyline Intolerance Elevated blood pressure and pulse. Ragweed Doxycycline Hyclate Intolerance Reflux Pyridium [Phenazopy* Other: See Comments dizziness MEDICATIONS: gabapentin (NEURONTIN) 300 mg capsule Take 1 capsule by mouth daily at bedtime for 180 days. gabapentin (NEURONTIN) 100 mg capsule Two capsules (200mg) by mouth every morning. rosuvastatin (CRESTOR) 10 mg tablet Take 1 tablet by mouth daily at bedtime. etodolac (LODINE) 400 mg tablet Take 1 tablet by mouth every other day. Cholecalciferol, Vitamin D3, 125 mcg (5,000 unit) cap Take 1 capsule by mouth once daily. ipratropium bromide (ATROVENT) 42 mcg (0.06 %) nasal spray Use 2 Sprays in the nose four times daily. prn carboxymethylcellulose sodium (REFRESH OPHTHALMIC) Use 1 Drop in eyes as needed. propylene glycol (SYSTANE COMPLETE OPHTHALMIC) Use 1 Drop in eyes as needed. Azelastine HCl (OPTIVAR) 0.05 % ophthalmic solution Use 1 Drop in both eyes twice daily as needed (allergies). famotidine (PEPCID ORAL) Take 1 tablet by mouth twice daily. albuterol HFA (VENTOLIN HFA) 90 mcg/actuation inhaler Inhale 2 Puffs as instructed every 4 hours as needed. psyllium husk (METAMUCIL ORAL) Take 1 teaspoonful by mouth two times a day. calcium carbonate (CALCIUM 600 ORAL) Take 600 mg by mouth once daily. vit A,C,M-Tizq-Zebvvp (PRESERVISION AREDS) 7,160-113-100 zadi-yk-vrdx tab Take 1 tablet by mouth twice daily. Wbly-Ehxc-GNK#1-G-Nxub-Trevon-Bor (OSTEO BI-FLEX) 750-625-30 mg Tab Take 1 tablet by mouth twice daily. ofloxacin (OCUFLOX) 0.3 % ophthalmic solution Use 1 Drop in both eyes four times daily. Use after surgery Allergies, medications, past surgical history, family history and past medical history were reviewed per this encounter. Objective Ortho Exam 74-year-old female in no acute distress. She is alert, pleasant, talkative with exam. Dilation of the right lower leg shows no significant joint effusion. There is mild tenderness over the medial aspect of the right knee. No significant crepitus with range of motion. There is no pain with palpation along the anterior spine of the tibia or with range of motion of the ankle. Assessment/Plan ASSESSMENT Diagnosis Right anterior tibial pain-resolved No orders found for this visit on 04/01/24. PLAN Discussed with Andre the possibility of superficial nerve inflammation which was causing her pain. If symptoms return, begin using ice and heat contrast followed by application of lidocaine gel. She may want to use a small amount of Voltaren gel on the area as well. FOLLOW-UP: No follow-ups on file. SIGNATURE: Estrada Reddy DO PATIENT NAME: Andre Luther DATE: April 01, 2024 TIME: 3:30 PM Patient presents with: Right lower leg pain AMB ROOMING INTAKE FLOWSHEET DATA Pain Pain Location: Leg-Right Description: Sharp Duration Units: Weeks Frequency: Intermittent Intervention/Comfort measure: Medication Patient states 7 weeks ago she felt like she had ordoñez splints. When she would get out of bed she would have the pain for 30-45 minutes and the subside for 3 weeks and the following week she was unable to walk. The past 2 weeks the pain goes away after 30 minutes of being up. Taking Tylenol as needed for the pain and did help take the edge off. but not taking anything now. X-rays done today. documented in this encounter [facility] 04-01-2024 History of Present illness Narrative Radiology Service Progress Note PATIENT NAME: Andre Luther DATE OF SERVICE: April 01, 2024 TIME: 3:23 PM PATIENT IDENTITY VERIFICATION COMPLETED USING TWO (2) IDENTIFIERS: Name and Date of confirmed by patient verbally. FALL SCREENING: Has the patient had 2 falls in the last year or 1 fall with injury or currently using an Ambulatory Assistive Device (Walker, Cane, Wheelchair, Crutches, etc.)? No PATIENT GENDER DATA: Female. status: : No status: NO. PATIENT RELEVANT IMPLANT DATA REVIEWED: Not Applicable PATIENT PRESENTS WITH AN IMPLANTABLE OR ATTACHED GREEN END WORKER: No RADIOLOGY DEPARTMENT: General X-ray: Exam(s) Completed: Lower Extremity X-Ray(s): Tibia Fibula, Right PERIPHERAL IV DATA: Not applicable SIGNED BY: RT Juhi(R) April 01, 2024 3:23 PM documented in this encounter [facility] 03-27-2024 Note Date of Procedure 03/27/2024. Astigmatism Right Eye Irregular irregular. Left Eye Irregular irregular. Interval Change Right Eye Intial . Left Eye Intial . [facility] 03-27-2024 History of Present illness Narrative ASSESSMENT/PLAN: 1. 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 I have seen and examined Andre Luther. I have discussed the case and the management of this patient's care with the Resident/Fellow, if applicable. I also have reviewed and agree with the assessment and plan as stated above and agree with all of its relevant components. Christopher Puente MD documented in this encounter [facility] 03-09-2024 History of Present illness Narrative Patient presents with: Leg Pain HPI: Patient presents today for office visit for follow up. Right leg below knee. Has been having for about 1 month. In the morning when she gets up. A real sharp stabbing pain. When she starts to walk is bad and then after about 20 min to an hour can get better. Denies redness, swelling, warmth. Is right in the front of leg(ordoñez). ALWAYS wears shoes or slippers with her history of plantar fascitis. Feels like it just tightness up though the night. Has been using a leg board stretching etc. Rides her exercise bike. Ice didn't help. No personal history of blood clot. No trauma. No swelling. Currently feels good. No thigh pain. No back pain. Staying the same. No issues controlling bowel or bladder. Does frequent leg exercises during the day. No knee or ankle pain. Is on lodine and gabapentin. MEDICATIONS: Current Outpatient Medications Medication Sig gabapentin (NEURONTIN) 300 mg capsule Take 1 capsule by mouth daily at bedtime for 180 days. gabapentin (NEURONTIN) 100 mg capsule Two capsules (200mg) by mouth every morning. rosuvastatin (CRESTOR) 10 mg tablet Take 1 tablet by mouth daily at bedtime. etodolac (LODINE) 400 mg tablet Take 1 tablet by mouth every other day. Cholecalciferol, Vitamin D3, 125 mcg (5,000 unit) cap Take 1 capsule by mouth once daily. ipratropium bromide (ATROVENT) 42 mcg (0.06 %) nasal spray Use 2 Sprays in the nose four times daily. prn carboxymethylcellulose sodium (REFRESH OPHTHALMIC) Use 1 Drop in eyes as needed. propylene glycol (SYSTANE COMPLETE OPHTHALMIC) Use 1 Drop in eyes as needed. Azelastine HCl (OPTIVAR) 0.05 % ophthalmic solution Use 1 Drop in both eyes twice daily as needed (allergies). famotidine (PEPCID ORAL) Take 1 tablet by mouth twice daily. albuterol HFA (VENTOLIN HFA) 90 mcg/actuation inhaler Inhale 2 Puffs as instructed every 4 hours as needed. psyllium husk (METAMUCIL ORAL) Take 1 teaspoonful by mouth two times a day. calcium carbonate (CALCIUM 600 ORAL) Take 600 mg by mouth once daily. vit A,C,N-Qjka-Tswudz (PRESERVISION AREDS) 7,160-113-100 joec-zh-hixv tab Take 1 tablet by mouth twice daily. Rvpp-Witc-BAB#9-C-Slcl-Trevon-Bor (OSTEO BI-FLEX) 750-625-30 mg Tab Take 1 tablet by mouth twice daily. No current facility-administered medications for this visit. ALLERGIES: ALLERGIES Allergen Reactions Cephalosporins Rash Codeine GI Upset Dust Itching Nortriptyline Intolerance Elevated blood pressure and pulse. Ragweed Doxycycline Hyclate Intolerance Reflux Pyridium [Phenazopy* Other: See Comments dizziness PAST MEDICAL HISTORY Diagnosis Date Asthma Breast cancer (HCC) right s/p lumpectomy 08/2017, and radiation Macular cyst, hole, or pseudohole of retina Both eyes Osteopenia after menopause PVC (premature ventricular contraction) Shingles PAST SURGICAL HISTORY Procedure Laterality Date BREAST BIOPSY INCISIONAL RIGHT Right 07/2018 BREAST LUMPECTOMY HX Right 09/15/2018 Right NL PM/SNBx: [id number], ER/AR+, HER2 Neg, Grade 1, IDC w/tubular features; 1/2nodes COLONOSCOPY 07/2007, 01/14 [place] 1980 face. POST-CATARACT LASER SURGERY 06/26/2012 Yag Capsulotomy OS VITRECTOMY FOR MACULAR HOLE Left 06/06/2011 L eye. VITRECTOMY MECHANICAL PARS PLANA Right 02/20/2012 [place] Vitrectomy ,MP, PCIOL OD FAMILY HISTORY Problem Relation Age of Onset Cataract Mother other (osteopenia) Mother Osteopenia Stroke Mother Heart Father SC Lipids Father High Cholesterol other (Macular Degeneration) Maternal Grandfather Heart Attack Paternal Grandmother Heart Attack Paternal Grandfather Blood Clots Daughter Coronary Artery Disease Paternal Aunt Coronary Artery Disease Paternal Uncle Social History Tobacco Use Smoking status: Never Smokeless tobacco: Never Vaping Use Vaping Use: Never used Substance Use Topics Alcohol use: No Drug use: No Reviewed current medications, allergies, past medical history, surgical history, family history and social history today. REVIEW OF SYSTEMS All other reviewed and negative other than HPI. VITALS: BP 132/72 Pulse 67 Wt 65.8 kg (145 lb) SpO2 98% BMI 27.40 kg/m Last 4 Encounter Wt Readings: Date: Wt: 02/18/2024 65.6 kg (144 lb 11.2 oz) 12/23/2023 66.2 kg (146 lb) 09/03/2023 66.9 kg (147 lb 6.4 oz) 08/26/2023 66.9 kg (147 lb 8 oz) PHYSICAL EXAMINATION: General appearance: Well appearing, alert, in no acute distress, well-hydrated, well nourished. Skin: Skin color, texture, turgor normal, no suspicious rashes or lesions Back: Normal exam, no cva tenderness. No si joint pain. BACK: Normal curvature of spine. No spine tenderness. Straight leg test negative. Deep tendon reflexes 2+/4 at patellas. Normal lower extremity strength. Extremities: No deformities, edema, skin discoloration, clubbing or cyanosis. Good capillary refill. , No cords. No calf tenderness. Ed's sign negative. Musculoskeletal: No joint swelling, deformity, or tenderness Peripheral pulses: Normal Neuro: Negative. ASSESSMENT/PLAN: 1. Pain of left lower extremity - ICD9: 729.5, ICD10: M79.605 (primary diagnosis) - offered xray of back. Declines. Offered lowed steroids for 5 days. Will consider. Heat. No signs of dvt. Given time of day would have to go to er. Discussed options with patient. Red flags for re-assessment reviewed with patient in detail. Discussed risks and benefits of new medication with the patient. Advised them to call if any side effects or questions. 2. Elevated blood pressure reading without diagnosis of hypertension - ICD9: 796.2, ICD10: R03.0 - Goal of BP <130/80 3. GERD without esophagitis - ICD9: 530.81, ICD10: K21.9 - stable. Abhishek Huynh MD documented in this encounter [facility] 02-27-2024 Note Date of Procedure 02/27/2024. Deicer Repairer Pneumatic Information Theatre Professor: Disha Ewing. Start time: 10:27 AM. Stop time: 10:27 AM. Interpretation Right Eye Findings include Negative for Intraretinal fluid. Left Eye Findings include Negative for Intraretinal fluid. 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 Visual acuity with correction is 20/25 RE and 20/25 PH LE. IOP 11/12. Anterior segment exam is significant for centered PCIOL w/ open PC Both eyes with Ruben nodule ou. Dilated fundus examination demonstrates closed holes and attached retina in both eyes. OCT with slightly progressive ERM OS, stable Right eye. OCT also shows mild drusen. I recommend observation. She is using ATs 3-4x a day at the most, would recommend increasing and seeing Cornea in the future. I have confirmed and edited as necessary [...] of its relevant components. Marialuisa Brown MD documented in this encounter [facility] 02-18-2024 Telephone encounter Note Patient has been identified by name and date of : Yes, Provider [place] Date 02/17 Time 1205 Patient phones for refill(s): Requested Prescriptions Pending Prescriptions Disp Refills gabapentin (NEURONTIN) 300 mg capsule 30 capsule 5 Sig: Take 1 capsule by mouth daily at bedtime for 180 days. gabapentin (NEURONTIN) 100 mg capsule 60 capsule 5 Sig: Two capsules (200mg) by mouth every morning. Date of last office visit in primary care: Visit date not found Date of next office visit in primary care: 08/21/2024 Please advise. Thank you. Farzana Carrasco. [facility] Work Phone: 02-18-2024 Miscellaneous Notes Patient has been identified by name and date of : Yes, Provider her Date 02/17 Time 1205 Patient phones for refill(s): Requested Prescriptions Pending Prescriptions Disp Refills gabapentin (NEURONTIN) 300 mg capsule 30 capsule 5 Sig: Take 1 capsule by mouth daily at bedtime for 180 days. gabapentin (NEURONTIN) 100 mg capsule 60 capsule 5 Sig: Two capsules (200mg) by mouth every morning. Date of last office visit in primary care: Visit date not found Date of next office visit in primary care: 08/21/2024 Please advise. Thank you. Farzana Carrasco. documented in this encounter [facility] 02-18-2024 History of Present illness Narrative Chief Complaint Patient presents with: Established Patient HPI: Andre Luther is a 74 year old female who presents here today for follow up breast cancer. Per Dr. Deng's previous note: H/o PVCs, GERD and osteoarthritis of the left knee. Underwent ultrasound-guided core needle biopsy on 08/28/2018. Pathology: Right breast, ultrasound-guided needle core biopsy - Invasive ductal carcinoma, nuclear grade 1. - Estrogen receptor is positive greater than 95% nuclei staining, outside slide reviewed. - Progesterone receptor is positive 80% of nuclei staining, outside slide reviewed. - HER2 by immunohistochemistry is negative +0, outside slide reviewed. Underwent a right partial mastectomy with sentinel lymph node biopsy on 09/15/2018. Pathology: 1. Right axillary sentinel lymph node #1, resection (A) - Micrometastatic adenocarcinoma present in one of two lymph nodes (1/2). See comment. 2. Right breast partial mastectomy (B) - Invasive ductal carcinoma with tubular features, histologic grade 1. Prior biopsy site and clip are identified. See synoptic template. 3. Right breast deep, inferior, superior, medial, anterior, lateral margins, resection (C-H) - Fibrofatty breast tissue with no tumor seen. Oncotype DX recurrence score was 14. Previous therapy: Right partial mastectomy with sentinel node dissection (Dr. Reinoso; September 15, 2018, 1.5 cm , 1 of 2 lymph nodes positive with micro mets (1.1 mm)) Radiation therapy (Dr. Baxter, completed therapy on November 19, 2018) Patient declined endocrine therapy No new concerns today. Appetite:Good. Energy level:Good. Denies fevers or recent illness. Resp:denies cough or sob Cardiac:denies chest pain/palpitations GI:denies abd pain, n/v, moving bowels regularly :denies dysuria/hematuria Extrem:denies pain Endo:occ. hot flashes Neuro:denies symptoms of neuropathy Skin:denies rashes Heme:denies bleeding The ROS is otherwise negative. Past medical history, appointments, medications, allergies reviewed. No changes. EXAM: BP 138/88 Pulse 80 Temp 36.4 C (97.5 F) (Temporal) Wt 65.6 kg (144 lb 11.2 oz) SpO2 97% BMI 27.34 kg/m APPEARANCE Well appearing, alert, in no acute distress, well-hydrated, well nourished. HEART RRR with normal S1 and S2, no murmurs, LUNG clear to auscultation BREAST FEMALE no mass/nodule b/l, R lateral scar/radiation changes LYMPH NODES No cervical lymphadenopathy, No supraclavicular lymphadenopathy, and No axillary lymphadenopathy. ABDOMEN bowel sounds normoactive, soft, non-tender EXTREMITIES No edema NEURO Awake, alert and oriented x 3, Normal gait, and No involuntary motions. SKIN Skin color, texture, turgor normal, no suspicious rashes or lesions ASSESSMENT/PLAN: 1. Personal history of malignant neoplasm of breast - ICD9: V10.3, ICD10: Z85.3 (primary diagnosis) pT1c pN1(mi) ER/AR positive (95% and 80% respectively), HER-2 negative (0 on IHC) infiltrating ductal carcinoma the right breast. Oncotype current score 14. Received adjuvant radiation to the breast. Declined adjuvant endocrine therapy. - Chronic intermittent lancinating pain right axilla into superior portion of the breast. managed with gabapentin. Tolerating current dose well. - No concerning findings on exam. - Reviewed mammogram with pt. - Continue neurontin. - Mammogram due in 2023. - Follow up after above. - Pt. aware to call office with any questions/concerns. The patient indicates understanding of these issues and agrees with the plan. All documentation from previous visit of 08/26/23-Dr. Deng/myself was copied and pasted, documentation has been reviewed and edited as necessary for today's visit. Radha Her APRN.PLASTERING SUPERVISOR documented in this encounter [facility] 02-14-2024 Telephone encounter Note Patient has been identified by name and date of : Patient phones for refill(s): Requested Prescriptions Pending Prescriptions Disp Refills rosuvastatin (CRESTOR) 10 mg tablet 90 tablet Sig: Take 1 tablet by mouth daily at bedtime. Date of last office visit in primary care: 12/23/2023 Date of next office visit in primary care: 07/01/2024 Patient requesting 90 day rx with refills please Please advise. Thank you. Marily Sol LPN. [facility] 02-14-2024 Miscellaneous Notes Patient has been identified by name and date of : Patient phones for refill(s): Requested Prescriptions Pending Prescriptions Disp Refills rosuvastatin (CRESTOR) 10 mg tablet 90 tablet Sig: Take 1 tablet by mouth daily at bedtime. Date of last office visit in primary care: 12/23/2023 Date of next office visit in primary care: 07/01/2024 Patient requesting 90 day rx with refills please Please advise. Thank you. Marily Sol LPN. documented in this encounter [facility] 01-23-2024 History of Present illness Narrative Radiology Service Progress Note PATIENT NAME: Andre Luther DATE OF SERVICE: January 23, 2024 TIME: 11:04 AM PATIENT IDENTITY VERIFICATION COMPLETED USING TWO (2) IDENTIFIERS: Name and Date of confirmed by patient verbally. FALL SCREENING: Has the patient had 2 falls in the last year or 1 fall with injury or currently using an Ambulatory Assistive Device (Walker, Cane, Wheelchair, Crutches, etc.)? No PATIENT GENDER DATA: Female. status: : No status: NO. PATIENT RELEVANT IMPLANT DATA REVIEWED: Not Applicable PATIENT PRESENTS WITH AN IMPLANTABLE OR ATTACHED GREEN END WORKER: No RADIOLOGY DEPARTMENT: Bone Density PERIPHERAL IV DATA: Not applicable SIGNED BY: RT Victoriano(R) January 23, 2024 11:04 AM documented in this encounter [facility] 12-23-2023 Instructions Abhishek Huynh MD - 12/23/2023 7:04 PM EDT BONE MINERAL DENSITY PATIENT INSTRUCTIONS ===== Bone mineral density testing measures the amount of calcium in certain parts of your bones. This information determines how strong your bones are. The test is used to detect osteoporosis, a disease in which the bone's mineral content and density are low, increasing a person's risk of fractures. The lumbar spine (lower back) and the hip are the skeletal sites usually examined. For the test, remember that: 1. You cannot take this test if you are . 2. Eat a normal diet on the day of the test. 3. Take your medications as you normally would. 4. DO NOT take calcium supplements (such as Tums) for 24 hours before the test. 5. On the day of the test, leave valuables (jewelry or credit cards) at home. 6. The test should be performed prior to oral, rectal or IV contrast studies, or at least 7 days after any of these studies. For the test, you may be asked to wear a hospital gown. You will lie on your back, on a padded table, in a comfortable position. Generally, you can resume your usual activities immediately. documented in this encounter [facility] 12-23-2023 History of Present illness Narrative Patient presents with: Anxiety: Has lorazepam PRN wondering about daily med? Medication Question: Discuss supplements and if needed. HPI: Patient presents today for office visit for follow up . Hld: no issues with crestor. No myalgias or chest pain or shortness of breath. Her urine had been more yellow recently. Has been drinking more fluid. Also takes a number of vitamins and Discussed that she can avoid her multivitamin since also on a number of other issues. Uses lorazepam prn for anxiety. Has a large amount of stress. Rarely uses lorazepam. She is wondering about taking something daily. Rarely uses it. Has had some issues using ssr's in the past. MEDICATIONS: Current Outpatient Medications Medication Sig Cholecalciferol, Vitamin D3, (VITAMIN D-3) 50 mcg (2,000 unit) cap Take 2,000 Units by mouth two times a day. Calcium-Cholecalciferol, D3, 600 mg-10 mcg (400 unit) cap Take 1 capsule by mouth once daily. FLAXSEED OIL ORAL Take 1,000 mg by mouth two times a day. gabapentin (NEURONTIN) 300 mg capsule Take 1 capsule by mouth daily at bedtime for 180 days. gabapentin (NEURONTIN) 100 mg capsule Two capsules (200mg) by mouth every morning. etodolac (LODINE) 400 mg tablet Take 1 tablet by mouth once daily as needed. (Patient taking differently: Take 400 mg by mouth every other day.) rosuvastatin (CRESTOR) 10 mg tablet Take 1 tablet by mouth daily at bedtime. carboxymethylcellulose sodium (REFRESH OPHTHALMIC) Use 1 Drop in eyes as needed. ipratropium bromide (ATROVENT) 42 mcg (0.06 %) nasal spray Use 2 Sprays in the nose four times daily. Azelastine HCl (OPTIVAR) 0.05 % ophthalmic solution Use 1 Drop in both eyes twice daily as needed (allergies). famotidine (PEPCID ORAL) Take 1 tablet by mouth twice daily. albuterol HFA (VENTOLIN HFA) 90 mcg/actuation inhaler Inhale 2 Puffs as instructed every 4 hours as needed. psyllium husk (METAMUCIL ORAL) Take 1 teaspoonful by mouth two times a day. calcium carbonate (CALCIUM 600 ORAL) Take 600 mg by mouth once daily. vit A,C,B-Dozi-Xakqlk (PRESERVISION AREDS) 7,160-113-100 krnr-ux-enrn tab Take 1 tablet by mouth twice daily. FOLIC ACID ORAL Take 800 mg by mouth once daily. With folate 1333 mg Ecap-Clid-MPM#6-R-Ehwp-Trevon-Bor (OSTEO BI-FLEX) 750-625-30 mg Tab Take 1 tablet by mouth twice daily. omega-3 fatty acids(FISH OIL 500 MG CAP) Take 1,200 mg by mouth two times a day. MULTIVITAMIN TAB Take 1 tablet by mouth once daily. propylene glycol (SYSTANE COMPLETE OPHTHALMIC) Use 1 Drop in eyes as needed. Cholecalciferol, Vitamin D3, 5,000 unit cap Take 1 capsule by mouth once daily. (Patient taking differently: Take by mouth once daily.) No current facility-administered medications for this visit. ALLERGIES: ALLERGIES Allergen Reactions Cephalosporins Rash Codeine GI Upset Dust Itching Nortriptyline Intolerance Elevated blood pressure and pulse. Ragweed Doxycycline Hyclate Intolerance Reflux Pyridium [Phenazopy* Other: See Comments dizziness PAST MEDICAL HISTORY Diagnosis Date Asthma Breast cancer (HCC) right s/p lumpectomy 08/2017, and radiation Macular cyst, hole, or pseudohole of retina Both eyes Osteopenia after menopause PVC (premature ventricular contraction) Shingles PAST SURGICAL HISTORY Procedure Laterality Date BREAST BIOPSY INCISIONAL RIGHT Right 07/2018 BREAST LUMPECTOMY HX Right 09/15/2018 Right NL PM/SNBx: [id number], ER/AR+, HER2 Neg, Grade 1, IDC w/tubular features; 1/2nodes COLONOSCOPY 07/2007, 01/14 nevus 1980 face. POST-CATARACT LASER SURGERY 06/26/2012 Yag Capsulotomy OS VITRECTOMY FOR MACULAR HOLE Left 06/06/2011 L eye. VITRECTOMY MECHANICAL PARS PLANA Right 02/20/2012 Pars Plana Vitrectomy ,MP, PCIOL OD FAMILY HISTORY Problem Relation Age of Onset Cataract Mother other (osteopenia) Mother Osteopenia Stroke Mother Heart Father SC Lipids Father High Cholesterol other (Macular Degeneration) Maternal Grandfather Heart Attack Paternal Grandmother Heart Attack Paternal Grandfather Blood Clots Daughter Coronary Artery Disease Paternal Aunt Coronary Artery Disease Paternal Uncle Social History Tobacco Use Smoking status: Never Smokeless tobacco: Never Vaping Use Vaping Use: Never used Substance Use Topics Alcohol use: No Drug use: No Reviewed current medications, allergies, past medical history, surgical history, family history and social history today. REVIEW OF SYSTEMS No chest pain or shortness of breath. All other reviewed and negative other than HPI. HEALTH MAINTENANCE: Reviewed health maintenance issues today and recommended the following in detail. Advance Directive Discussion due on 09/30/2023 Depression Assessment due on 09/30/2023 VITALS: BP 132/84 Pulse 75 Wt 66.2 kg (146 lb) SpO2 99% BMI 27.59 kg/m Last 4 Encounter Wt Readings: Date: Wt: 12/23/2023 66.2 kg (146 lb) 09/03/2023 66.9 kg (147 lb 6.4 oz) 08/26/2023 66.9 kg (147 lb 8 oz) 05/31/2023 66.2 kg (146 lb) PHYSICAL EXAMINATION: General appearance: Well appearing, alert, in no acute distress, well-hydrated, well nourished. Skin: Skin color, texture, turgor normal, no suspicious rashes or lesions Head: Normocephalic, no masses, lesions, tenderness or abnormalities Lungs: Lungs clear to auscultation. No wheezing, rhonchi, rales Heart: RRR without murmur, gallop, or rubs. No ectopy Abdomen: Normal abdominal exam, Abdomen soft, non-tender. Bowel sounds normal. No masses, organomegaly Extremities: No deformities, edema, skin discoloration, clubbing or cyanosis. Good capillary refill. ASSESSMENT/PLAN: 1. Elevated blood pressure reading without diagnosis of hypertension - ICD9: 796.2, ICD10: R03.0 (primary diagnosis) Home bp's are good. 2. PVC (premature ventricular contraction) - ICD9: 427.69, ICD10: I49.3 - doing well. 3. Malignant neoplasm of upper-outer quadrant of right breast in female, estrogen receptor positive (HCC) - ICD9: 174.4, V86.0, ICD10: C50.411, Z17.0 - sees oncology. 4. Mild intermittent asthma without complication - ICD9: 493.90, ICD10: J45.20 - stable. 5. Osteopenia, unspecified location - ICD9: 733.90, ICD10: M85.80 - offered to get bone density. 6. Mixed hyperlipidemia - ICD9: 272.2, ICD10: E78.2 - stable 7. PND (post-nasal drip) - ICD9: 784.91, ICD10: R09.82 - can use prn. - IPRATROPIUM BROMIDE 42 MCG (0.06 %) NASAL SPRAY 8. Situational anxiety - ICD9: 300.09, ICD10: F41.8 - ok to refill meds. Abhishek Huynh MD documented in this encounter [facility] 12-03-2023 History of Present illness Narrative 1. Regular astigmatism of both eyes Finalized spec rx- no change 2. 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 Meibomian gland dysfunction (MGD) of upper and lower lids of both eyes 4. Dry eye syndrome of bilateral lacrimal glands Continue warm compresses daily and artificial tears every 2-3 hours Okay to use azelastine eye drops as needed if helpful 5. Macular hole, bilateral Continue follow-up with Dr. Brown as scheduled Follow-up in 1 year or sooner as needed Felicitas Gonzales, LETITIA December 03, 2023 10:19 AM documented in this encounter [facility] 09-03-2023 History of Present illness Narrative Patient presents with: Numbness/Tingling HPI: Patient presents today for office visit for sensation in B/L legs and feet. Noticed about one week ago she was having intermittent episodes of weakness/tired feeling in her legs. Just below the knee into ordoñez. Refers to a prickly sensation in both her feet. Denies any pain in legs or feet. Complains of her hands and feet always being cold but that is not new. Has had a lot of stress recently. Mother was in hospice and . Her 's sister also . Has had three deaths in the last six months. Feels worn out. No swelling or color changes. No pain. Legs feels tired. Is on gabapentin for neuropathic pain from her breast surgery. Had radiation. No chemo. No burning in the feet at night. No back pain. Happened only four times this past week. Wants to make sure it is nothing to worry about. Seems to be worse when she is stressed. Did try a lorazepam which did not help Is equal bilaterally. No focal numbness or weakness. No vision or speech changes. No numbness or weakness. Is more when on her feet maybe. MEDICATIONS: Current Outpatient Medications Medication Sig gabapentin (NEURONTIN) 300 mg capsule Take 1 capsule by mouth daily at bedtime for 180 days. gabapentin (NEURONTIN) 100 mg capsule Two capsules (200mg) by mouth every morning. etodolac (LODINE) 400 mg tablet Take 1 tablet by mouth once daily as needed. rosuvastatin (CRESTOR) 10 mg tablet Take 1 tablet by mouth daily at bedtime. carboxymethylcellulose sodium (REFRESH OPHTHALMIC) Use 1 Drop in eyes as needed. propylene glycol (SYSTANE COMPLETE OPHTHALMIC) Use 1 Drop in eyes as needed. ipratropium bromide (ATROVENT) 42 mcg (0.06 %) nasal spray Use 2 Sprays in the nose four times daily. Azelastine HCl (OPTIVAR) 0.05 % ophthalmic solution Use 1 Drop in both eyes twice daily as needed (allergies). famotidine (PEPCID ORAL) Take 1 tablet by mouth twice daily. albuterol HFA (VENTOLIN HFA) 90 mcg/actuation inhaler Inhale 2 Puffs as instructed every 4 hours as needed. psyllium husk (METAMUCIL ORAL) Take 1 teaspoonful by mouth two times a day. calcium carbonate (CALCIUM 600 ORAL) Take 600 mg by mouth once daily. Cholecalciferol, Vitamin D3, 5,000 unit cap Take 1 capsule by mouth once daily. vit A,C,I-Fmmf-Hohkjf (PRESERVISION AREDS) 7,160-113-100 jcog-bd-swaw tab Take 1 tablet by mouth twice daily. FOLIC ACID ORAL Take 1 tablet by mouth once daily. Demu-Tmpt-YHR#9-C-Rbsi-Trevon-Bor (OSTEO BI-FLEX) 750-625-30 mg Tab Take 1 tablet by mouth twice daily. omega-3 fatty acids(FISH OIL 500 MG CAP) Take two(2) capsule daily. MULTIVITAMIN TAB Take one(1) tablet daily. flaxseed 1,000 mg cap Take 1 capsule by mouth once daily. (Patient not taking: Reported on 09/03/2023) No current facility-administered medications for this visit. ALLERGIES: ALLERGIES Allergen Reactions Cephalosporins Rash Codeine GI Upset Dust Itching Nortriptyline Intolerance Elevated blood pressure and pulse. Ragweed Howie [Other] Doxycycline Hyclate Intolerance Reflux Pyridium [Phenazopy* Other: See Comments dizziness PAST MEDICAL HISTORY Diagnosis Date Asthma Breast cancer (HCC) right s/p lumpectomy 08/2017, and radiation Macular cyst, hole, or pseudohole of retina Both eyes Osteopenia after menopause PVC (premature ventricular contraction) Shingles PAST SURGICAL HISTORY Procedure Laterality Date BREAST BIOPSY INCISIONAL RIGHT Right 07/2018 BREAST LUMPECTOMY HX Right 09/15/2018 Right NL PM/SNBx: [id number], ER/AR+, HER2 Neg, Grade 1, IDC w/tubular features; /2nodes COLONOSCOPY 07/2007, 01/14 nevus 1980 face. POST-CATARACT LASER SURGERY 06/26/2012 Yag Capsulotomy OS VITRECTOMY FOR MACULAR HOLE Left 06/06/2011 L eye. VITRECTOMY MECHANICAL PARS PLANA Right 02/20/2012 Pars [place]ana Vitrectomy ,MP, PCIOL OD FAMILY HISTORY Problem Relation Age of Onset Cataract Mother other (osteopenia) Mother Osteopenia Stroke Mother Heart Father SC Lipids Father High Cholesterol other (Macular Degeneration) Maternal Grandfather Heart Attack Paternal Grandmother Heart Attack Paternal Grandfather Blood Clots Daughter Coronary Artery Disease Paternal Aunt Coronary Artery Disease Paternal Uncle Social History Tobacco Use Smoking status: Never Smokeless tobacco: Never Vaping Use Vaping Use: Never used Substance Use Topics Alcohol use: No Drug use: No Reviewed current medications, allergies, past medical history, surgical history, family history and social history today. REVIEW OF SYSTEMS All other reviewed and negative other than HPI. HEALTH MAINTENANCE: Reviewed health maintenance issues today and recommended the following in detail. Influenza Vaccine(1) due on 05/31/2023 VITALS: BP 148/96 Pulse 78 Ht 154.9 cm (5' 1) Wt 66.9 kg (147 lb 6.4 oz) SpO2 97% BMI 27.85 kg/m Last 4 Encounter Wt Readings: Date: Wt: 08/26/2023 66.9 kg (147 lb 8 oz) 05/31/2023 66.2 kg (146 lb) 05/24/2023 66.1 kg (145 lb 12.8 oz) 02/27/2023 65 kg (143 lb 3.2 oz) PHYSICAL EXAMINATION: General appearance: Well appearing, alert, in no acute distress, well-hydrated, well nourished. Skin: Skin color, texture, turgor normal, no suspicious rashes or lesions Head: Normocephalic, no masses, lesions, tenderness or abnormalities Neck: Supple, no adenopathy; thyroid symmetric, normal size, no bruits Back: Normal exam Lungs: Lungs clear to auscultation. No wheezing, rhonchi, rales Heart: RRR without murmur, gallop, or rubs. No ectopy Abdomen: Normal abdominal exam, Abdomen soft, non-tender. Bowel sounds normal. No masses, organomegaly Extremities: No deformities, edema, skin discoloration, clubbing or cyanosis. Good capillary refill. No calf tenderness. No redness. Musculoskeletal: No joint swelling, deformity, or tenderness Peripheral pulses: Normal Neuro: Gait normal. Reflexes normal and symmetric. Sensation grossly intact., Negative findings: speech normal, mental status intact, cranial nerves 2-12 intact, muscle tone normal, muscle strength normal. Normal monofilament. ASSESSMENT/PLAN: 1. Paresthesia - ICD9: 782.0, ICD10: R20.2 (primary diagnosis) - ? Etiology. Given characteristics, doubt central cause. Start with labs. Consider xray. Discussed possibility of stress reaction. - follow up closely. Red flags for re-assessment reviewed with patient in detail. - CBC + DIFF - COMP METABOLIC PANEL - TSH BLD - VITAMIN B12 BLOOD - FOLATE SERUM - PROTEIN ELECTROPHORESIS SERUM W/INTERP 2. Situational anxiety - ICD9: 300.09, ICD10: F41.8 - refilled meds. Uses sparingly. Oarrs done. - LORAZEPAM 1 MG TABLET Abhishek Huynh MD documented in this encounter [facility] 08-26-2023 History of Present illness Narrative Informed Consent Presentation IRB# [id number] Spoke with patient at the request of Dr. Av Deng D.O. . Treatment plan, including all testing, potential risks/benefits, side effects and management, treatment alternatives, and follow-up explained. Roles of the clinical trial personnel to be involved and the financial responsibilities regarding procedures and medications were discussed. Discussed the importance of effective contraception during and following completion of active therapy for NA. Initial questions were answered and a copy of the informed consent was given to patient with the instructions to read it and call with any additional questions. Contact information for the research nurse was given to the patient. The patient verbalized appropriate understanding of all the aforementioned information presented. Time of Presentation: 09:30 AM Cheryl Bae RN documented in this encounter [facility] 06-05-2023 Miscellaneous Notes Message left on patient's VM asking that she check her [employer] messages for more information. Luz Marina Howard LPN The following approved medication requests have been transmitted electronically. Requested Prescriptions Signed Prescriptions Disp Refills gabapentin (NEURONTIN) 300 mg capsule 30 capsule 5 Sig: Take 1 capsule by mouth daily at bedtime for 180 days. Authorizing Provider: RADHA HER gabapentin (NEURONTIN) 100 mg capsule 60 capsule 5 Sig: Two capsules (200mg) by mouth every morning. Authorizing Provider: RADHA HER APRN.PLASTERING SUPERVISOR Pt calling in requesting a refill of gabapentin (NEURONTIN) 100 mg capsule Pt has two weeks left- Pt stated that provider changed the way she takes the Med.- Pt requested that her new refill would have the new instructions. Pt stated she takes 2 100 mg pills in the morning and 1 300 mg pill at bed time This has been going well. Pt stated she would like to keep it that way and not do a 300 mg pill in the morning and 300 mg at night Would like sent to [facility] in [place] Pt stated if needing to get a hold of her to documented in this encounter [facility] 05-31-2023 History of Present illness Narrative Images from the original note were not included. Female Pelvic Medicine & Reconstructive Surgery Consult CHIEF COMPLAINT: Andre Luther is a 73 year old female who presents for consultation requested by Dr. Butler for an opinion regarding Rectocele. HISTORY OF PRESENT ILLNESS: Pt reports that she was told she had a rectocele on her vaginal exam. She denies any vaginal bulge symptoms or defecatory dysfunction but is interested in learning about options if she becomes more symptomatic. She is currently in pelvic floor physical therapy with Leonor Morel She was also told that she has a urethral caruncle and was told she should use estrogen cream. Pt denies urethral burning, urethral pain, vaginal bleeding, hematuria or any urinary symptoms. She is nervous to use vaginal estrogen cream because of her history of breast cancer. Prior Workup: Seen Aileen Albright APRN.CNP for office visit concerning rectocele. Prior Treatment: PT Duration: Months Context: Here for opinion regarding treatment options regarding rectocele. Modifying Factors: None. UROGYNECOLOGIC REVIEW OF SYSTEMS: Vaginal bulge:not usually' Daily Fluids: Coffee, Caffeine: denies Water:4 16 ounce padilla per day Other:none. Frequency:denies Nocturia: denies Urinary urgency:denies Urge incontinence: denies Stress incontinence: denies Pads: denies Pain/Discomfort: denies Voiding symptoms: denies hesitancy, changes in stream or sensation of incomplete emptying, splinting to urinate Urinary tract infections or Pyelonephritis: denies Stones: denies Hematuria: denies Malignancy or pediatric voiding dysfunction: denies Abnormal vaginal bleeding: denies Abnormal vaginal discharge: denies Vaginal dryness: denies Bowel symptoms: BM every day, denies constipation, diarrhea, fecal incontinence, fecal urgency, stool trapping symptoms, splinting to have a BM, blood in stool. Takes medication which prevents constipation for her. Takes Last colonoscopy:8 years ago and was normal. Sexual activity:Not currently as has 5 herniated discs. Experienced dryness in past during intercourse. 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 Last Mammogram: 2021; normal. Had partial mastectomy and 3 week radiation for breast cancer. LMP: No LMP recorded. Patient is postmenopausal.; Menopause since early 50's: Menstrual history: Menarche: [age] yr; Deliveries: x 2 History of third or fourth degree laceration: No Weight of largest baby: 8.1 lbs Sexual function Sexually active: Not currently as has 5 herniated discs. Experienced dryness in past during intercourse. PFDI-20 Do you: Usually experience pressure in the lower abdomen? No (0) Usually experience heaviness or dullness in the pelvic area? No (0) Usually have a bulge or something falling out that you can see or feel in your vaginal area? No (0) Ever have to push on the vagina or around the rectum to have or complete a bowel movement? Yes, moderately bothersome (3) Usually experience a feeling of incomplete bladder emptying? No (0) Ever have to push up on a bulge in the vaginal area with your fingers to start or complete urination? No (0) Feel you need to strain too hard to have a bowel movement? No (0) Feel you have not completely emptied your bowels at the end of a bowel movement? No (0) Usually lose stool beyond your control if your stool is well formed? No (0) Usually lose stool beyond your control if your stool is loose? No (0) Usually lose gas from the rectum beyond your control? No (0) Usually have pain when you pass your stool? No (0) Experience a strong sense of urgency and have to mckeon to the bathroom to have a bowel movement? No (0) Does part of your bowel ever pass through the rectum and bulge outside during or after a bowel movement? No (0) Usually experience frequent urination? Yes, not at all bothersome (1) Usually experience urine leakage associated with a feeling of urgency, that is, a strong sensation of needing to go to the bathroom? Yes, not at all bothersome (1) Usually experience urine leakage related to coughing, sneezing or laughing? Yes, not at all bothersome (1) Usually experience small amounts of urine leakage (that is, drops)? Yes, not at all bothersome (1) Usually experience difficulty emptying your bladder? No (0) Usually experience pain or discomfort in the lower abdomen or genital region? No (0) Do you have pain associated with your prolapse (not pressure or fullness) No PFIQ-7 How do symptoms or conditions relating to the following usually affect your: Bladder or urine Bowel or rectum Vagina or pelvis 1. Ability to do bread racker (cooking, housecleaning, laundry) Not at all Not at all Not at all 2. Ability to do physical activities such as walking, swimming or other exercise Not at all Not at all Not at all 3. Entertainment activities such as going to a movie or concert? Not at all Not at all Not at all 4. Ability to travel by car or bus for a distance greater than 30 minutes away from home? Not at all Not at all Not at all 5. Participating in social activities outside your home? Not at all Not at all Not at all 6. Emotional health (nervousness, depression etc). Not at all Not at all Not at all 7. Feeling frustrated? Not at all Not at all Not at all PAST SURGICAL HISTORY Procedure Laterality Date BREAST BIOPSY INCISIONAL RIGHT Right 07/2018 BREAST LUMPECTOMY HX Right 09/15/2018 Right NL PM/SNBx: [id number], ER/AR+, HER2 Neg, Grade 1, IDC w/tubular features; 1/2nodes COLONOSCOPY 07/2007, 01/14 nevus 1980 face. POST-CATARACT LASER SURGERY 06/26/2012 Yag Capsulotomy OS VITRECTOMY FOR MACULAR HOLE Left 06/06/2011 L eye. VITRECTOMY MECHANICAL PARS PLANA Right 02/20/2012 [place] Vitrectomy ,MP, PCIOL OD PAST MEDICAL HISTORY Diagnosis Date Asthma Breast cancer (HCC) right s/p lumpectomy 08/2017, and radiation Macular cyst, hole, or pseudohole of retina Both eyes Osteopenia after menopause PVC (premature ventricular contraction) Shingles FAMILY HISTORY Problem Relation Age of Onset Cataract Mother other (osteopenia) Mother Osteopenia Stroke Mother Heart Father SC Lipids Father High Cholesterol other (Macular Degeneration) Maternal Grandfather Heart Attack Paternal Grandmother Heart Attack Paternal Grandfather Blood Clots Daughter Coronary Artery Disease Paternal Aunt Coronary Artery Disease Paternal Uncle Current Outpatient Medications Medication Sig etodolac (LODINE) 400 mg tablet Take 1 tablet by mouth once daily as needed. rosuvastatin (CRESTOR) 10 mg tablet Take 1 tablet by mouth daily at bedtime. carboxymethylcellulose sodium (REFRESH OPHTHALMIC) Use 1 Drop in eyes as needed. propylene glycol (SYSTANE COMPLETE OPHTHALMIC) Use 1 Drop in eyes as needed. gabapentin (NEURONTIN) 300 mg capsule Take 1 capsule by mouth daily at bedtime for 30 days. ipratropium bromide (ATROVENT) 42 mcg (0.06 %) nasal spray Use 2 Sprays in the nose four times daily. Azelastine HCl (OPTIVAR) 0.05 % ophthalmic solution Use 1 Drop in both eyes twice daily as needed (allergies). gabapentin (NEURONTIN) 100 mg capsule Take 1 capsule by mouth three times daily for 180 days. famotidine (PEPCID ORAL) Take 1 tablet by mouth twice daily. albuterol HFA (VENTOLIN HFA) 90 mcg/actuation inhaler Inhale 2 Puffs as instructed every 4 hours as needed. psyllium husk (METAMUCIL ORAL) Take 1 teaspoonful by mouth once daily. calcium carbonate (CALCIUM 600 ORAL) Take 600 mg by mouth once daily. Cholecalciferol, Vitamin D3, 5,000 unit cap Take 1 capsule by mouth once daily. flaxseed 1,000 mg cap Take 1 capsule by mouth once daily. vit A,C,A-Alqr-Torogh (PRESERVISION AREDS) 7,160-113-100 mhcd-lf-[id number] tab Take 1 tablet by mouth twice daily. FOLIC ACID ORAL Take 1 tablet by mouth once daily. Cccq-Jzys-UFV#3-B-Lhas-Trevon-Bor (OSTEO BI-FLEX) 750-625-30 mg Tab Take 1 tablet by mouth twice daily. omega-3 fatty acids(FISH OIL 500 MG CAP) Take two(2) capsule daily. MULTIVITAMIN TAB Take one(1) tablet daily. No current facility-administered medications for this visit. ALLERGIES Allergen Reactions Cephalosporins Rash Codeine GI Upset Dust Itching Nortriptyline Intolerance Elevated blood pressure and pulse. Ragweed Howie [Other] Doxycycline Hyclate Intolerance Reflux Pyridium [Phenazopy* Other: See Comments dizziness SOCIAL HISTORY Social History Tobacco Use Smoking status: Never Smokeless tobacco: Never Vaping Use Vaping Use: Never used Substance Use Topics Alcohol use: No Drug use: No Occupation: N/A Marital Status: REVIEW OF SYSTEMS General: Negative for unintentional weight loss, fever, chills, or weakness. Skin: Negative for rash or itching. Psychiatric: Negative for depression. Reports normal stress. Neurologic: Negative for new headache or syncope. Endocrine: Negative for sweating, cold intolerance or heat intolerance. Cardiovascular: Negative for recent chest pain, chest pressure or chest discomfort. Hematologic/Lymphatic: Negative for easy bruising or excessive bleeding. Respiratory: Negative for wheezing, shortness of breath or persistent cough. Gastrointestinal: Negative for persistent abdominal pain. Negative for anorexia, persistent nausea and/or vomiting. Musculoskeletal: Negative for muscle pain, back pain, joint pain or stiffness. I have confirmed and edited as necessary, the PFSH and ROS obtained by others. Gabriela Concepcion MD Activity Leader offered: Patient declines. OBJECTIVE: BP 141/85 Ht 5' 1.5 (1.56m) Wt 146 lb (66.2kg) BMI 27.14 kg/(m^2). Physical Exam Constitutional: BMI - Body mass index is 27.14 kg/m . General Appearance: Well appearing, alert, in no acute distress, well-hydrated, well nourished. Skin: Skin color, texture, turgor normal, no suspicious rashes or lesions Lungs: Not examined Heart: RRR, Not examined Breasts: Deferred Abdomen: Abdomen soft, non-tender Pelvic: External Genitalia: No lesions or other abnormalities, agglutination of labia minora and labia majora, POP-Q: Prolapse Noted: Yes Aa = -3.0 Ba = -3.0 C = -8.0 gh = 2.5 pb = 3.0 tvl = 9.0 Ap = 0 Bp = 0 D = -8.5 Vaginal epithelium: Atrophic Cervix: Absent Urethra: Normal, Supine cough stress test negative Bimanual: Normal size anteverted uterus, No tenderness, No masses Rectovaginal: No tenderness, No masses, Rectocele Anal Sphincter: Resting Tone: Normal Squeeze Strength: 2+ out of 5 Sphincter Defect: no Levator Ani Contraction: 2+ Levator Ani Tone: normal Levator Ani Tenderness: No Saddle Sensory Exam (S2-4): normal UA results: normal Bladder scan: Nurse performed and PVR 0 mL IMPRESSION: Andre Luther is a 73 year old (2xNSVD) female with Rectocele, Urethral Caruncle and Genitourinary Syndrome of Menopause. Pelvic Organ Prolapse (POP) Counseled pt that she has a small Stage 2 rectocele on exam. Patient is not currently having any symptoms but if she develops symptoms, we discussed observation, pessary (whose results depend on the extent of the prolapse as well as the vaginal opening/genital hiatus), pelvic floor muscle training (PFMT) (to help halt the process, will not reverse pelvic organ descensus) and surgical repair (Vaginal approach vs. Robotic sacrocolpopexy). Discussed need to avoid constipation and well as avoiding excessive Valsalva and weight management to ensure avoidance of worsening of prolapse. I discussed that many women who have vaginal deliveries develop asymptomatic rectoceles and we would only recommend intervention if she becomes bothered by symptoms. 2. Urethral caruncle Counseled patient that many women with urethral caruncles are asymptomatic and are usually identified as an incidental finding on vaginal examination. Urethral caruncles can cause light bleeding, dysuria, pain, or obstruction to urine flow although patient denies these symptoms. For first-line treatment of symptomatic patients, I would suggest use of a topical estrogen cream for two to three months, however with history of breast cancer would defer any treatment. If the urethral caruncle becomes more bothersome and symptomatic, we discussed DHEA cream which is a precrusor to estrogen and can be used in patients with a history of breast cancer. 3. Genitourinary Syndrome of Menopause I discussed options for Vaginal Atrophy management reviewed including vaginal moisturizers, lubricants, and vaginal estrogen therapy I explained that consistent use of vaginal estrogen treats vaginal atrophy and has the potentially treat any associated OAB symptoms, dysuria, vaginal irritation, dyspareunia, in addition to helping prevent UTIs. The risks, benefits and alternatives (e.g. Hyalogyn) were discussed. Given her history of breast cancer, if she becomes more bothered we could consider nightly DHEA suppositories. PLAN: Continue pelvic floor physical therapy Follow-up with me as needed I spent a total of 60 minutes on the date of the service which included preparing to see the patient, [id number] patient care, completing clinical documentation, obtaining and/or reviewing separately obtained history, performing a medically appropriate examination, counseling and educating the patient/family/caregiver, ordering medications, tests, or procedures, and communicating with other HCPs (not separately reported). My final recommendations will be communicated back to the requesting physician by way of shared Medical record or letter via US mail. Gabriela Concepcion MD By signing my name below, I, DERECK Douglas Student, attest that this documentation has been prepared under the direction and in the presence of Dr. Concepcion Electronically signed, DERECK Douglas Student, Scribe May 31, 2023 10:28 AM Provider Attestation: IGabriela MD, personally performed the services described in this documentation. All medical record entries made by the scribe were at my direction and in my presence. I have reviewed the chart and discharge instructions (if applicable) and agree that the record reflects my personal performance and is accurate and complete. documented in this encounter [facility] 05-24-2023 History of Present illness Narrative Patient presents with: Follow Up HPI: Patient presents today for office visit for follow up. Had added crestor. Feels great. No myalgias. She is very pleased with levels. No stomach issues. No gi issues. Her bp both here and at home are good. No chest pain or shortness of breath. Component Latest Ref Rng & Units 02/19/2023 04/09/2023 Cholesterol, Total <200 mg/dL 137 Triglyceride <150 mg/dL 133 HDL Cholesterol >39 mg/dL 59 Non HDL Cholesterol <130 mg/dL 78 Fasting Time hrs 12 VLDL Cholesterol <30 mg/dL 27 TC:HDL Ratio <5.10 2.32 LDL Cholesterol <100 mg/dL 51 LDL:HDL Ratio <2.54 0.86 Total Cholesterol, Nonfasting <200 mg/dL 208 (H) Triglycerides, Nonfasting <150 mg/dL 126 HDL Cholesterol, Nonfasting >39 mg/dL 61 LDL Cholesterol, Nonfasting <100 mg/dL 122 (H) Non HDL Cholesterol, Nonfasting <130 mg/dL 147 (H) VLDL Cholesterol, Nonfasting <30 mg/dL 25 Total Chol/HDL Ratio, Nonfasting <5.10 mg/dL 3.41 LDL/HDL Ratio, Nonfasting <2.54 mg/dL 2.00 Albumin 3.9 - 4.9 g/dL 4.2 Bilirubin, Total 0.2 - 1.3 mg/dL 0.6 Bilirubin, Conjug <0.2 mg/dL <0.2 Alkaline Phosphatase 34 - 123 U/L 83 AST 13 - 35 U/L 28 ALT 7 - 38 U/L 22 Protein, Total 6.3 - 8.0 g/dL 6.9 Hemoglobin A1C 4.3 - 5.6 % 5.1 Estimated Average Glucose mg/dL 100 Lipoprotein (a) <30 mg/dL <6 MEDICATIONS: Current Outpatient Medications Medication Sig etodolac (LODINE) 400 mg tablet Take 1 tablet by mouth once daily as needed. rosuvastatin (CRESTOR) 10 mg tablet Take 1 tablet by mouth daily at bedtime. carboxymethylcellulose sodium (REFRESH OPHTHALMIC) Use 1 Drop in eyes as needed. propylene glycol (SYSTANE COMPLETE OPHTHALMIC) Use 1 Drop in eyes as needed. ipratropium bromide (ATROVENT) 42 mcg (0.06 %) nasal spray Use 2 Sprays in the nose four times daily. Azelastine HCl (OPTIVAR) 0.05 % ophthalmic solution Use 1 Drop in both eyes twice daily as needed (allergies). famotidine (PEPCID ORAL) Take 1 tablet by mouth twice daily. albuterol HFA (VENTOLIN HFA) 90 mcg/actuation inhaler Inhale 2 Puffs as instructed every 4 hours as needed. psyllium husk (METAMUCIL ORAL) Take 1 teaspoonful by mouth once daily. calcium carbonate (CALCIUM 600 ORAL) Take 600 mg by mouth once daily. Cholecalciferol, Vitamin D3, 5,000 unit cap Take 1 capsule by mouth once daily. flaxseed 1,000 mg cap Take 1 capsule by mouth once daily. vit A,C,K-Wghn-Mkyfsa (PRESERVISION AREDS) 7,160-113-100 kkfl-he-jgle tab Take 1 tablet by mouth twice daily. FOLIC ACID ORAL Take 1 tablet by mouth once daily. Dhlb-Vwad-WQM#5-F-Slqq-Trevon-Bor (OSTEO BI-FLEX) 750-625-30 mg Tab Take 1 tablet by mouth twice daily. omega-3 fatty acids(FISH OIL 500 MG CAP) Take two(2) capsule daily. MULTIVITAMIN TAB Take one(1) tablet daily. gabapentin (NEURONTIN) 300 mg capsule Take 1 capsule by mouth daily at bedtime for 30 days. gabapentin (NEURONTIN) 100 mg capsule Take 1 capsule by mouth three times daily for 180 days. No current facility-administered medications for this visit. ALLERGIES: ALLERGIES Allergen Reactions Cephalosporins Rash Codeine GI Upset Dust Itching Nortriptyline Intolerance Elevated blood pressure and pulse. Ragweed Howie [Other] Doxycycline Hyclate Intolerance Reflux Pyridium [Phenazopy* Other: See Comments dizziness PAST MEDICAL HISTORY Diagnosis Date Asthma Breast cancer (HCC) right s/p lumpectomy 08/2017, and radiation Macular cyst, hole, or pseudohole of retina Both eyes Osteopenia after menopause PVC (premature ventricular contraction) Shingles PAST SURGICAL HISTORY Procedure Laterality Date BREAST BIOPSY INCISIONAL RIGHT Right 07/2018 BREAST LUMPECTOMY HX Right 09/15/2018 Right NL PM/SNBx: [id number], ER/AR+, HER2 Neg, Grade 1, IDC w/tubular features; 1/2nodes COLONOSCOPY 07/2007, 01/14 nevus 1980 face. POST-CATARACT LASER SURGERY 06/26/2012 Yag Capsulotomy OS VITRECTOMY FOR MACULAR HOLE Left 06/06/2011 L eye. VITRECTOMY MECHANICAL PARS PLANA Right 02/20/2012 [place] Vitrectomy ,MP, PCIOL OD FAMILY HISTORY Problem Relation Age of Onset Cataract Mother other (osteopenia) Mother Osteopenia Stroke Mother Heart Father SC Lipids Father High Cholesterol other (Macular Degeneration) Maternal Grandfather Heart Attack Paternal Grandmother Heart Attack Paternal Grandfather Blood Clots Daughter Coronary Artery Disease Paternal Aunt Coronary Artery Disease Paternal Uncle Social History Tobacco Use Smoking status: Never Smokeless tobacco: Never Vaping Use Vaping Use: Never used Substance Use Topics Alcohol use: No Drug use: No Reviewed current medications, allergies, past medical history, surgical history, family history and social history today. REVIEW OF SYSTEMS All other reviewed and negative other than HPI. HEALTH MAINTENANCE: Reviewed health maintenance issues today and recommended the following in detail. DTAP,TDAP,TD(2 - Td or Tdap) due on 06/23/2020 ADVANCE DIRECTIVE DISCUSSION- on file. DEPRESSION ASSESSMENT Never done COVID-19 VACCINE(6 - Moderna series) due on 11/28/2022 MAMMOGRAM - on file. VITALS: BP 110/60 Pulse 66 Resp 16 Wt 66.1 kg (145 lb 12.8 oz) SpO2 92% BMI 27.57 kg/m Last 4 Encounter Wt Readings: Date: Wt: 05/24/2023 66.1 kg (145 lb 12.8 oz) 02/27/2023 65 kg (143 lb 3.2 oz) 02/19/2023 64.9 kg (143 lb) 02/14/2023 64.9 kg (143 lb) PHYSICAL EXAMINATION: General appearance: Well appearing, alert, in no acute distress, well-hydrated, well nourished. Skin: Skin color, texture, turgor normal, no suspicious rashes or lesions Head: Normocephalic, no masses, lesions, tenderness or abnormalities Neck: Supple, no adenopathy; Lungs: Lungs clear to auscultation. No wheezing, rhonchi, rales Heart: RRR without murmur, gallop, or rubs. No ectopy Abdomen: Normal abdominal exam, Abdomen soft, non-tender. Bowel sounds normal. No masses, organomegaly Extremities: No deformities, edema, skin discoloration, clubbing or cyanosis. Good capillary refill. ASSESSMENT/PLAN: 1. Elevated blood pressure reading without diagnosis of hypertension - ICD9: 796.2, ICD10: R03.0 (primary diagnosis) - doing better. 2. PVC (premature ventricular contraction) - ICD9: 427.69, ICD10: I49.3 - stable. 3. GERD without esophagitis - ICD9: 530.81, ICD10: K21.9 - doing well. 4. Osteopenia, unspecified location - ICD9: 733.90, ICD10: M85.80 - bone density in the last year. 5. Mixed hyperlipidemia - ICD9: 272.2, ICD10: E78.2 - Controlled - Continue current medications - call if any issues. Abhishek Huynh MD documented in this encounter [facility] 05-13-2023 Miscellaneous Notes Last Office Visit: 02/27/2023 Future Office Visit: 05/24/2023 Requested Prescriptions Pending Prescriptions Disp Refills etodolac (LODINE) 400 mg tablet 90 tablet 1 Sig: Take 1 tablet by mouth once daily as needed. Date of Last Labs: 04/09/2023 documented in this encounter [facility] 04-16-2023 History of Present illness Narrative Episode Visit Count: 2 Therapist That Will Accept/Oversee The Plan Of Care: Leonor Morel Start of Care Date: 03/22/23 Onset Date: 12/29/22 Plan of Care Certification Date: 03/22/23 Next Certification Due Date: 05/21/23 Patient Identified by Name and Date of : Yes REHABILITATION AND SPORTS THERAPY PHYSICAL THERAPY TREATMENT NOTE ASSESSMENT: Andre Luther tolerated the session with no issues. She demonstrated good endurance with exercises, required minimal cueing for TA bracing. The patient will continue to benefit from ongoing skilled physical therapy to progress toward set goals. PLAN FOR NEXT VISIT: reassessment SUBJECTIVE: Patient Reason for Visit: Pt reports good compliance with HEP, no POP symptoms or bladder/bowel concerns. Pain: Pain Pain Level: 0 Post Treatment Pain Post Treatment Pain Level: 0 OBJECTIVE MEASURES WITH LEVEL OF FUNCTION: Min verbal cueing for TA bracing. TREATMENT: Therapeutic Exercise: 1: supine TA bracing, 1x10 2: quick kegals, 1x10 3: kegal holds, 5sec hold with 5sec rest, 1x10 4: *combo kegal, 1x10 5: *bridge with glute activation, 2x10 6: *hooklying hip abduction, L3 TB, 2x10 7: *posterior pelvic tilt, 2x10 Skilled Intervention: Patient was educated in proper exercise technique and purpose for exercises. Reviewed and educated patient on additions/changes for home exercise program as above (*). Skilled judgment was provided in selection of appropriate interventions. Provided written instruction for home exercise program to facilitate proper performance and compliance. Self-Correction Management: 1: Reviewed body's pressure management system, importance of breathing and bracing PF during functional tasks Skilled Intervention: Skilled judgment in the selection of proper modification for activity of daily living/home management based on clinical presentation, deficits, and needs. Billing Therapeutic Exercise Treatment Minutes: 40 Self-Care/Home Management Treatment Minutes: 4 Total Treatment Time Minutes (timed/untimed): 44 Leonor Morel PT documented in this encounter [facility] 03-22-2023 History of Past i llness Narrative Problem Noted Date Diagnosed Date Resolved Date Muscle weakness 03/22/2023 12/23/2023 Anal or rectal pain 02/08/2017 09/20/20 17 Postmenopausal atrophic vaginitis 06/22/2014 09/08/2019 After-cataract, obscuring vision 04/20/2014 09/20/2017 PCO (posterior capsular opacification), left 2 09/20/2017 Pain in joint, lower leg 05/06/2012 Bilateral pseudophakia 04/01/201209/20 Solar Lentigines 08/07/2011 06/22/2014 Seborrheic Keratosis 08/07/2011 014 Nobles Angiomas 08/07/2011 06/22/2014 Cutaneous skin tags 08/07/2011 06/22/20 14 documented as of this encounter (statuses as of 12/24/2023) [facility] History of Present illness Narrative* Leonor Cheema, PT - 03/22/2023 8:32 AM EDT Episode Visit Count: 1 Therapist That Will Accept/Oversee The Plan Of Care: Leonor Cheema Start of Care Date: 03/22/23 Onset Date: 12/29/22 Plan of Care Certification Date: 03/22/23 Next Certification Due Date: 05/21/23 Patient Identified by Name and Date of : Yes REHABILITATION AND SPORTS THERAPY PHYSICAL THERAPY EVALUATION PLAN OF CARE: Assessment: Andre Luther presents with chief complaint of pelvic organ prolapse that interferes with sitting . She presents with impairments in decreased pelvic floor strength and coordination; decreased core strength. PROMIS (Patient-Reported Outcomes Measurement Information System) scores were r eviewed and physical function domain and self efficacy domain identified as within normal limits. Prognosis for therapy is Excellent due to: current objective clinical presentation, good overall health status . She will benefit from skilled therapy services to meet the goals established for this plan of care as noted below. Goals for Episode of Care: created on 03/22/23 through 05/21/23 [place] in home exercise program. Patient will demonstrate increase in core strength to at least 4/5 during manual muscle testing in order to improve function for prior functional tasks. Patient to increase strength of pelvic floor to Power: at least 3/5 in order to improve POP symptoms. Patient to correctly isolate pelvic floor muscles without compensatory patterns of breath holding to improve POP symptoms. Patient reports at least 85% improvement in POP symptoms compared to IE. Patient Goals: improve POP Planned Interventions, Frequency, and Duration: Current Frequency: 1x every other week Duration: 4 weeks (reassess at 4 weeks and progress as indicated) Total Number of Visits Planned: 2 Planned Treatment Interventions: Therapeutic exercise (47731), Manual therapy (21137), Self-prison management (04254), Patient/Family/Caregiver Education PLAN FOR NEXT VISIT: progress PF and core strengthening exercises Patient demonstrates good understanding of plan of care and treatment. The above goals and plan of care were discussed and agreed upon by patient/family. SUBJECTIVE: Pt reports history of POP for about 7 years. Pt reports no symptoms until December 2022 when it started becoming somewhat uncomfortable to sit. Pt reports overall, POP does not bother her much. Patient Goals: improve POP Functional Limitations: sitting Prior Level of Function: Independent without limitations Relevant History Past Relevant Medical Conditions: (see note) Past Relevant Surgical Conditions: (see note) Employment: Retired Recreation / Current Exercise: stationary bike Intake Information: Prescription present PAST MEDICAL HISTORY Diagnosis Date Asthma Breast cancer (HCC) right s/p lumpectomy 08/2017, and radiation Macular cyst, hole, or pseudohole of retina Both eyes Osteopenia after menopause PVC (premature ventricular contraction) Shingles PAST SURGICAL HISTORY Procedure Laterality Date BREAST BIOPSY INCISIONAL RIGHT Right 07/2018 BREAST LUMPECTOMY HX Right 09/15/2018 Right NL PM/SNBx: [id number], ER/AR+, HER2 Neg, Grade 1, IDC w/tubular features; 1/2nodes COLONOSCOPY 07/2007, 01/14 [place] 1980 face. POST-CATARACT LASER SURGERY 06/26/2012 Yag Capsulotomy OS VITRECTOMY FOR MACULAR HOLE Left 06/06/2011 L eye. VITRECTOMY MECHANICAL PARS PLANA Right 02/20/2012 [place] Vitrectomy ,MP, PCIOL OD Previous Treatment: Exercises per physician (everett) Falls Interview: No positive findings with falls interview Aquatic Screen: No Pain: Pain Pain Level: 0 Post Treatment Pain Post Treatment Pain Level: 0 PROMIS Scales Higher is Better 03/20/2023 Phys Func - Score 46 (within normal limits) Phys Func - Percentile 34 % Self-Eff Symptom - Score 48 (Average) Self-Eff Symptom - Percentile 42 % T-scores: mean of general population = 50. 5 points is clinically meaningfully difference Percentiles provide an indication of how the patient's score ranks in relation to the general population. Higher percentile rankings indicate better function/quality of life. 50th percentile is the average of the general population and indicates half of respondents had a worse score. OBJECTIVE MEASURES WITH LEVEL OF FUNCTION: Pelvic Floor Pregnancies: 2 Births: 2 Vaginal Delivery: Standard Pain with penetration: No Urinary/Bowel History : Urinary History, Bowel History Difficulty starting stream: No Incomplete emptying: No Stress Incontinence: No Urgency: No Nocturia (times per night): 1 Daytime Frequency (hours): 3-4 Fluid Intake: Water (8 oz measurements) Water : 6 Difficulty evacuating / Excessive Straining: No Incomplete emptying: No Bowel Movement Frequency: 1x/day Fecal incontinence: No Pelvic Floor Muscle Assessment Consent for pelvic assessment/testing and treatment: Patient was educated regarding pelvic floor physical therapy assessment/treatment which may include pelvic floor and girdle muscle assessment externally or internally (vaginal or rectal approach)., Patient verbalized consent for the above treatment approaches today. Patient understands they have control of the treatment and an opportunity to stop treatment at any time. Appearance: General Observations General Observations: POP noted. Pelvic Floor Muscle Assessment: PERFECT, Muscle Dynamics Power: 2 Endurance: 10 Fast Reps: 10 Contracton Pressure: Weak squeeze, felt as flick at various points along finger surface, not all the way around Duration of Contraction: >3 seconds Recruitment of pelvic floor muscles: Uncoordinated Extra-pelvic muscle activity: Holds breath Range of Motion: Normal Ability to Lengthen pelvic floor: Yes Pelvic Floor Manual Assessment Pelvic Floor Tenderness/Hyperactivity: Tested Vaginally in Tested Vaginally in : Supine/hooklying (No tightness/tenderness noted.) LE AROM R LE AROM: WFL L LE AROM: WFL LE Flexibility Flexibility: Hamstring Flexibility, Hip Adductor, Hip Internal Rotation Flexibility, Hip External Rotation Flexibility R Hamstring Flexibility: WNL L Hamstring Flexibility: WNL R Adductor Flexibility: WNL L Adductor Flexibility: WNL R Hip Internal Rotation Flexibility: WNL L Hip Internal Rotation Flexibility: WNL R Hip External Rotation Flexibility: WNL L Hip External Rotation Flexibility: WNL LE Strength Trunk Strength: Lower Abdominals: 3/5 R LE Strength: 5/5 L LE Strength: 5/5 Education: Education Learning Preferences: Demonstration, Explanation, Performance, Printed Materials Barriers: None Learning/educational needs: Home exercise program, Plan of Care Education Provided: Yes, see treatment interventions for education provided Education Provided To: Patient Education Mode/Type: Demonstration, Explanation/Discussion, Literature/Printed Materials, Performance Response to Education/Teach Back: States/Identifies, Return Demonstration TREATMENT: PT Treatment Interventions: Therapeutic Exercise, Self-Correction Management Evaluation Therapeutic Exercise: 1: *quick kegals, 3x10 2: *kegal holds, 10sec hold with 10sec rest, 2x5 3: *isometric hip adduction, 2x10 4: *supine TA bracing, 2x10 Skilled Intervention: Patient was educated in proper exercise technique and purpose for exercises. Reviewed and educated patient on additions/changes for home exercise program as above (*). Skilled judgment was provided in selection of appropriate interventions. Provided written instruction for home exercise program to facilitate proper performance and compliance. Self-Correction Management: 1: Reviewed pelvic floor anatomy and function with 3D pelvic model 2: Reviewed POP, PT treatment options, goals & expectations of therapy 3: Reviewed impact of mm weakness on POP 4: Reviewed body's pressure management system, importance of breathing and bracing PF during functional tasks Skilled Intervention: Skilled judgment in the selection of proper modification for activity of daily living/home management based on clinical presentation, deficits, and needs. Provided written instruction for activities of daily living techniques to facilitate proper performance and compliance. Billing * Evaluation Low Complexity: 1 Unit Therapeutic Exercise Treatment Minutes: 12 Self-Care/Home Management Treatment Minutes: 16 Total Treatment Time Minutes (timed/untimed): 59 Leonor Cheema PT [facility] History of Present illness Narrative* Abhishek Huynh MD - 02/27/2023 1:51 PM EDT Patient presents with: Follow Up HPI: Patient presents today for office visit for follow up. Hx of allergies. Intermittent ear clogging and post nasal drip. No issues with asthma. Using inhalers just prn. Saw Dr. [facility] on 02/19/23. Recommends cholesterol medication. Discuss and review labs. No PVC's No chest pain or shortness of breath Was stressed on arrival at the office due to issues with her . Monitors BP at home. Has readings. At [employer] [facility] BP was elevated. 159/92. She states she was just given some bad new concerning her brother. Was under a little bit of stress and was not given any rest time before BP was taken. Discussed risk factors of heart disease and not treating with a statin. Gabapentin is working well. Still follows with oncology. Doing well. Had labs bone density done in 12/19 MEDICATIONS: Current Outpatient Medications Medication Sig carboxymethylcellulose sodium (REFRESH OPHTHALMIC) Use 1 Drop in eyes as needed. propylene glycol (SYSTANE COMPLETE OPHTHALMIC) Use 1 Drop in eyes as needed. gabapentin (NEURONTIN) 300 mg capsule Take 1 capsule by mouth daily at bedtime for 30 days. etodolac (LODINE) 400 mg tablet Take 1 tablet by mouth once daily as needed. ipratropium bromide (ATROVENT) 42 mcg (0.06 %) nasal spray Use 2 Sprays in the nose four times daily. Azelastine HCl (OPTIVAR) 0.05 % ophthalmic solution Use 1 Drop in both eyes twice daily as needed (allergies). gabapentin (NEURONTIN) 100 mg capsule Take 1 capsule by mouth three times daily for 180 days. famotidine (PEPCID ORAL) Take 1 tablet by mouth twice daily. albuterol HFA (VENTOLIN HFA) 90 mcg/actuation inhaler Inhale 2 Puffs as instructed every 4 hours asneeded. psyllium husk (METAMUCIL ORAL) Take 1 teaspoonful by mouth once daily. calcium carbonate (CALCIUM 600 ORAL) Take 600 mg by mouth once daily. Cholecalciferol, Vitamin D3, 5,000 unit cap Take 1 capsule by mouth once daily. flaxseed 1,000 mg cap Take 1 capsule by mouth once daily. vit A,C,W-Uuhu-Qdybcc (PRESERVISION AREDS) 7,160-113-100 vkxj-wm-euky tab Take 1 tablet by mouth twice daily. FOLIC ACID ORAL Take 1 tablet by mouth once daily. Hbtb-Oddm-SDY#7-K-Vapd-Rtevon-Bor (OSTEO BI-FLEX) 750-625-30 mg Tab Take 1 tablet by mouth twice daily. omega-3 fatty acids(FISH OIL 500 MG CAP) Take two(2) capsule daily. MULTIVITAMIN TAB Take one(1) tablet daily. No current facility-administered medications for this visit. ALLERGIES: ALLERGIES Allergen Reactions Cephalosporins Rash Codeine GI Upset Dust Itching Nortriptyline Intolerance Elevated blood pressure and pulse. Ragweed Howie [Other] Doxycycline Hyclate Intolerance Reflux Pyridium [Phenazopy* Other: See Comments dizziness PAST MEDICAL HISTORY Diagnosis Date Asthma Breast cancer (HCC) right s/p lumpectomy 08/2017, and radiation Macular cyst, hole, or pseudohole of retina Both eyes Osteopenia after menopause PVC (premature ventricular contraction) Shingles PAST SURGICAL HISTORY Procedure Laterality Date BREAST BIOPSY INCISIONAL RIGHT Right 07/2018 BREAST LUMPECTOMY HX Right 09/15/2018 Right NL PM/SNBx: [id number], ER/AR+, HER2 Neg, Grade 1, IDC w/tubular features; 1/2nodes COLONOSCOPY 07/2007, 01/14 [place] 1980 face. POST-CATARACT LASER SURGERY 06/26/2012 Yag Capsulotomy OS VITRECTOMY FOR MACULAR HOLE Left 06/06/2011 L eye. VITRECTOMY MECHANICAL PARS PLANA Right 02/20/2012 [place] Vitrectomy ,MP, PCIOL OD FAMILY HISTORY Problem Relation Age of Onset Cataract Mother other (osteopenia) Mother Osteopenia Stroke Mother Heart Father SC Lipids Father High Cholesterol other (Macular Degeneration) Maternal Grandfather Heart Attack Paternal Grandmother Heart Attack Paternal Grandfather Blood Clots Daughter Coronary Artery Disease Paternal Aunt Coronary Artery Disease Paternal Uncle Social History Tobacco Use Smoking status: Never Smokeless tobacco: Never Vaping Use Vaping Use: Never used Substance Use Topics Alcohol use: No Drug use: No Reviewed current medications, allergies, past medical history, surgical history, family history andsocial history today. REVIEW OF SYSTEMS No gi or gu issues. Tolerating pepcid. All other reviewed and negative other than HPI. HEALTH MAINTENANCE: Reviewed health maintenance issues today and recommended the following in detail. DTAP,TDAP,TD(2 - Td or Tdap) due on 06/23/2020 ADVANCE DIRECTIVE DISCUSSION Never done DEPRESSION ASSESSMENT Never done VITALS: BP 136/86 Pulse 90 Ht 154.9 cm (5' 0.98) Wt 65 kg (143 lb 3.2 oz) SpO2 97% BMI 27.08 kg/m Last 4 Encounter Wt Readings: Date: Wt: 02/19/2023 64.9 kg (143 lb) 02/14/2023 64.9 kg (143 lb) 02/12/2023 64.4 kg (142 lb) 01/23/2023 64.4 kg (142 lb) PHYSICAL EXAMINATION: General appearance: Well appearing, alert, in no acute distress, well-hydrated, well nourished. Skin: Skin color, texture, turgor normal, no suspicious rashes or lesions Head: Normocephalic, no masses, lesions, tenderness or abnormalities Lungs: Lungs clear to auscultation. No wheezing, rhonchi, rales Heart: RRR without murmur, gallop, or rubs. No ectopy Abdomen: Normal abdominal exam, Abdomen soft, non-tender. Bowel sounds normal. No masses, organomegaly Extremities: No deformities, edema, skin discoloration, clubbing or cyanosis. Good capillary refill. Musculoskeletal: No joint swelling, deformity, or tenderness ASSESSMENT/PLAN: 1. Mixed hyperlipidemia - ICD9: 272.2, ICD10: E78.2 (primary diagnosis) - elevated level - Discussed risks and benefits of new medication with the patient. Advised them to call if any sideeffects or questions. - ROSUVASTATIN 10 MG TABLET - HEPATIC FUNCTION PNL - LIPID PANEL BASIC 2. Mild intermittent asthma without complication - ICD9: 493.90, ICD10: J45.20 - stable as above. 3. Malignant neoplasm of upper-outer quadrant of right breast in female, estrogen receptor positive(HCC) - ICD9: 174.4, V86.0, ICD10: C50.411, Z17.0 - per oncology. Stable. 4. GERD without esophagitis - ICD9: 530.81, ICD10: K21.9 - doing well on meds. 5. PVC (premature ventricular contraction) - ICD9: 427.69, ICD10: I49.3 - asymptomatic. 6. Osteopenia, unspecified location - ICD9: 733.90, ICD10: M85.80 - no changes. Up to date on testing. 7. Elevated blood pressure reading without diagnosis of hypertension - ICD9: 796.2, ICD10: R03.0 - Recommend home blood pressure monitoring, to bring results in on next visit - repeat bp is improving. - Goal of BP <130/80 Abhishek MARKS in three months. and prn. documented in this [facility]04-27-2023 Instructions* Patient Instructions* Felicitas Gonzales, OD - 01/24/2023 9:50 AM EDT Recommended Refresh gel nightly Continue baby shampoo Continue Systane/Refresh drops 4-5 times daily documented in this [facility]04-27-2023 History of Present illness Narrative* Felicitas Gonzales, OD - 01/24/2023 9:45 AM EDT 1. 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 Dry eye syndrome of bilateral lacrimal glands 3. Meibomian gland dysfunction (MGD) of upper and lower lids of both eyes Recommended Refresh gel nightly, continuing baby shampoo and Systane/refresh drops 4-5 times daily 4. Macular hole, bilateral Continue follow-up with Dr. Brown as scheduled in 1 month 5. Regular astigmatism both eyes Finalized spec rx Felicitas Gonzales, OD January 24, 2023 9:45 AM documented in this [facility]04-26-2023 Instructions* Patient Instructions* Aileen Albright APRN.PLASTERING SUPERVISOR - 01/23/2023 9:11 AM EDT How To Perform Pelvic Floor (Kegel) Exercises These exercises help to strengthen the pelvic floor muscles and can help improve bladder control for women. 1. You should have been instructed in the office how to contract these muscles. At home, you can insert two fingers in the vagina and feel the contraction of these muscles as you squeeze. We call these muscles the pelvic floor because they help support the pelvic organs, especially during coughing and sneezing. Squeezing the pelvic floor while standing feels like you are lifting the area around the vagina, and will interrupt the stream of urine while voiding. Once you are certain which muscles to use, do not exercise while urinating. Make sure you are not bearing down, squeezing your buttocks, or straining abdominally: these are not the muscles to be exercised. You may wish to place hands on your buttock muscles to keep these muscles relaxed while performing the exercises. 2. Squeeze these muscles as hard as you can for a slow count of five, eventually working up to a slow count of ten. Rest for 15 seconds, and then start another contraction. At first. these muscles may feel sore, just as other muscles may feel sore after exercise. 3. You should perform 50 squeezes every day: make sure every squeeze count by [place] as hard as you can! Many women try to do these exercises in sets of five or ten at a time. Remind yourself todo these exercises by starting them every time you are waiting at a red light, watching a television commercial, or on hold on the telephone. If you are having trouble concentrating, you may want to set aside a special time to perform sets of pelvic floor exercises. 4. In addition to the long, hard contractions you are doing try doing some quick flicks of these muscles throughout the day. 5. You should be seen in the office after starting these exercises to make sure you are performing the contraction correctly: you may have never known how to contract these muscles before starting pelvic floor exercises, and many patients mistakenly exercise the wrong muscles. If you still feel frustrated about which muscles to use ask us for help. There are physical therapy specialists who work with pelvic floor muscles. 6. Work hard! As with any exercise program, improvement often is related to how faithfully you adhere to your exercise program. Pelvic floor exercises do not have the side effects and expense associated with other treatments for urinary incontinence, and have been known to help with severe stress incontinence. It may take several months to see the full effect of your exercise program: if you are easily discouraged, see your doctor or doctor at regular visits to assess what progress you are making. Techniques to avoid urinary accidents: Empty your bladder regularly and prior to physical activity. Avoid activity that causes leakage, if possible. Avoid or moderate the intake of alcohol and caffeine products. Try to restrict fluids prior to planned activities. Wear appropriate protection. Prevent chronic coughing which can cause a loss of urinary control. Ways to prevent chronic coughing include treating asthma, restricting smoking, and removing allergy-causing agents from your environment. [facility] History of Present illness Narrative* Aileen Albright APRN.VALERY - 01/23/2023 8:33 AM EDT Andre Luther is a 73 year old female who presents for problem visit would like to discuss pessaryfor rectocele. HPI: Known rectocele with no symptoms. Does take Metamucil daily. No constipation. Started having rectal pressure a couple of weeks ago, especially with sitting. Started doing Kegel exercises and nowsymptoms are better and muscles feel tighter. Sometimes can feel a bulge in the vagina if on her feet and active or when wiping. Able to empty bladder and bowel completely. Does feel like urine stream is not as strong and spraysin different directions. 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 POST-CATARACT LASER SURGERY 06/26/2012 Yag Capsulotomy OS VITRECTOMY FOR MACULAR HOLE Left 06/06/2011 L eye. VITRECTOMY MECHANICAL PARS PLANA Right 02/20/2012 [place] Vitrectomy ,MP, PCIOL OD FAMILY HISTORY Problem Relation Age of Onset Cataract Mother other (osteopenia) Mother Osteopenia Stroke Mother Heart Father SC Lipids Father High Cholesterol other (Macular Degeneration) Maternal Grandfather Heart Attack Paternal Grandmother Heart Attack Paternal Grandfather Blood Clots Daughter Coronary Artery Disease Paternal Aunt Coronary Artery Disease Paternal Uncle Social History Tobacco Use Smoking status: Never Smokeless tobacco: Never Vaping Use Vaping Use: Never used Substance Use Topics Alcohol use: No Drug use: No Current Outpatient Medications Medication Sig etodolac (LODINE) 400 mg tablet Take 1 tablet by mouth once daily as needed. ipratropium bromide (ATROVENT) 42 mcg (0.06 %) nasal spray Use 2 Sprays in the nose four times daily. Azelastine HCl (OPTIVAR) 0.05 % ophthalmic solution Use 1 Drop in both eyes twice daily as needed (allergies). gabapentin (NEURONTIN) 100 mg capsule Take 1 capsule by mouth three times daily for 180 days. famotidine (PEPCID ORAL) Take 1 tablet by mouth twice daily. albuterol HFA (VENTOLIN HFA) 90 mcg/actuation inhaler Inhale 2 Puffs as instructed every 4 hours asneeded. psyllium husk (METAMUCIL ORAL) Take 1 teaspoonful by mouth once daily. calcium carbonate (CALCIUM 600 ORAL) Take 600 mg by mouth once daily. Cholecalciferol, Vitamin D3, 5,000 unit cap Take 1 capsule by mouth once daily. flaxseed 1,000 mg cap Take 1 capsule by mouth once daily. vit A,C,O-Fxlx-Zhqhkl (PRESERVISION AREDS) 7,160-113-100 gtuw-au-wukk tab Take 1 tablet by mouth twice daily. FOLIC ACID ORAL Take 1 tablet by mouth once daily. Gwlp-Vzhl-QHF#8-K-Xtmq-Trevon-Bor (OSTEO BI-FLEX) 750-625-30 mg Tab Take 1 tablet by mouth twice daily. dextran 70/hypromellose(ARTIFICIAL TEARS EYE DROPS) as necessary omega-3 fatty acids(FISH OIL 500 MG CAP) Take two(2) capsule daily. MULTIVITAMIN TAB Take one(1) tablet daily. gabapentin (NEURONTIN) 300 mg capsule Take 1 capsule by mouth daily at bedtime for 30 days. calcium carbonate/vitamin D3 (CALCIUM 600 + D,3, ORAL) Take 1 tablet by mouth once daily. (Patient not taking: Reported on 01/23/2023) No current facility-administered medications for this visit. Allergies As of Date: 01/23/2023 Allergen Noted Reaction CEPHALOSPORINS 01/19/2008 Rash CODEINE 01/10/2007 GI Upset DUST 01/13/2007 Itching NORTRIPTYLINE 10/24/2020 Intolerance RAGWEED 01/13/2007 HOWIE [OTHER] 01/13/2007 DOXYCYCLINE HYCLATE 04/01/2018 Intolerance PYRIDIUM [PHENAZOPYRIDINE] 09/03/2019 Other: See Comments Fully Assessed 01/23/2023 REVIEW OF SYSTEMS Abdomen: No bloating, early satiety, indigestion, or increased flatulence. No abdominal pain, nausea, vomiting, diarrhea, or constipation. Bladder: No dysuria, gross hematuria, urinary frequency, urinary urgency, or incontinence. Allergies and current medication updated:Yes EXAM: BP 126/68 Wt 142 lb (64.4kg) GENERAL: pleasant, female in no apparent distress CHEST: Normal inspiratory effort ABDOMEN: soft, non-tender, and no masses PELVIC: external genitalia normal, normal Bartholin's glands, urethra, Hustisford's glands, no vulvar lesions, no cervical lesions, physiologic discharge present, normal appearing perineal body and perianal region, cystocele 1st degree, rectocele 2nd degree BIMANUAL: uterus normal size, shape and consistency, no adnexal masses, and non-tender NEURO: alert and oriented x3,exam grossly non-focal ASSESSMENT/PLAN: 1. Rectocele - ICD9: 618.04, ICD10: N81.6 (primary diagnosis) - 2nd degree per pt report -laxity on exam but difficult to assess accurately due to patient inability to bear down. -No constipation and is able to have complete bowel movement -Discussed management options of observing, pelvic floor therapy. Discussed that pessary may or maynot be helpful but that physical therapist can assess further as she could not bear down for good evaluation. Discussed that surgical intervention would most likely not be needed at this point as sheis asymptomatic. She has an appointment with urogynecology in May and feels that she would like to keep this appointment for further assessment. - CONSULT TO PHYSICAL THERAPY 2. Cystocele, midline - ICD9: 618.01, ICD10: N81.11 1st degree -Asymptomatic - Discussed Kegel exercises and given written instruction. - CONSULT TO PHYSICAL THERAPY 3. Urethral caruncle - ICD9: 599.3, ICD10: N36.2 -Discussed urethral caruncle and that it may be the cause of feeling like her urine is growing in different directions and change in urine stream. - discussed treatment with topical estrogen cream. Patient has a history of estrogen receptor positive breast cancer and will discuss application of a fingertip amount of vaginal estrogen directly tocaruncle with oncologist at her next appointment. Follow-up as needed. Aileen Albright APRN.VALERY I spent a total of 35 minutes on the date of the service which included preparing to see the patient, [id number] patient care, completing clinical documentation, obtaining and/or reviewing separately obtained history, performing a medically appropriate examination, counseling and educating the pat ient/family/caregiver, and ordering medications, tests, or procedures. documented in this encounterUniversity Hospitals Ge[facility]03-29-2023 Miscellaneous Notes* Telephone Encounter - Jailene Butler MD - 12/26/2022 9:34 AM EDT Signed * Telephone Encounter - Lidia Collins RN - 12/26/2022 9:27 AM EDT Patient of . Last saw her for annual 09/21/22. Discussed rectocele with her then and now wants toproceed with uro platen builder up consult to discuss options. ANTHONY's office visit note below. Please file order ifokay. Patient wants to schedule with Dr. Gabriela Concepcion. Can send [employer] message once filed so she is able to schedule. Asymptomatic rectocele: Recommend adequate fluid intake, fiber, and avoiding constipation. Discussed option for pelvic floor PT. Would not recommend surgical management at this time as she is asymptomatic. Discussed reasons to call. Discussed option for consultation with uro platen builder up. Lidia Collins RN documented in this encounterUniversity Hospitals Geaug[facility] Center03-02-2023 Miscellaneous Notes* Telephone Encounter - Radha Her APRN.CNP - 11/29/2022 11:42 AM EST Noted. Please call her next week for an update. Thank you. Radha Her APRN.VALERY * Telephone Encounter - Viktoria Clarke RN - 11/29/2022 10:13 AM EST Patient stated she increased gabapentin last night and woke up feeling dizzy and fuzzy this morning. Patient stated she was informed she might have a hangover feeling the next day after increasing gabapentin to 300 mg at bedtime and she is assuming this is what Radha meant. Patient aware these are common side effects from gabapentin and hopefully after a couple more days her body should adapt and get used to the medication. Patient instructed to drink plenty of fluids, eat well today, and call if symptoms get worse or do not resolve. Patient aware this nurse will provide Radha with an update and will call her back if there are any additional instructions. Patient stated understanding. Viktoria Clarke RN * Telephone Encounter - Farzana Govea Pss - 11/29/2022 10:03 AM EST Patient called stating Haylie Her changed dose of gabapentin to 300 mg. She started this last night and today she is feeling fuzzy/dizzy. Asking to speak to clinical. documented in this encounterUniversity Hospitals Geaug[facility]03-01-2023 History of Present illness Narrative* Radha Her APRN.CNP - 11/28/2022 8:30 AM EST Chief Complaint Patient presents with: Established Patient HPI: Andre Luther is a 72 year old female who presents here today for complaints of increased surgical/nerve pain. See phone note. Per Dr. Deng's previous note: H/o PVCs, GERD and osteoarthritis of the left knee. Underwent ultrasound-guided core needle biopsy on 08/28/2018. Pathology: Right breast, ultrasound-guided needle core biopsy - Invasive ductal carcinoma, nuclear grade 1. - Estrogen receptor is positive greater than 95% nuclei staining, outside slide reviewed. - Progesterone receptor is positive 80% of nuclei staining, outside slide reviewed. - HER2 by immunohistochemistry is negative +0, outside slide reviewed. Underwent a right partial mastectomy with sentinel lymph node biopsy on 09/15/2018. Pathology: 1. Right axillary sentinel lymph node #1, resection (A) - Micrometastatic adenocarcinoma present in one of two lymph nodes (1/2). See comment. 2. Right breast partial mastectomy (B) - Invasive ductal carcinoma with tubular features, histologic grade 1. Prior biopsy site and clip are identified. See synoptic template. 3. Right breast deep, inferior, superior, medial, anterior, lateral margins, resection (C-H) - Fibrofatty breast tissue with no tumor seen. Oncotype DX recurrence score was 14. Previous therapy: 1) Adjuvant radiation to 4005 cGy to the right breast completed 11/19/2018. Evidently declined endocrine therapy. I've been cleaning out closets and I was more sore. Appetite:Too good. Wt. stable. Energy level:Good. Denies fevers or recent illness. Resp:denies cough or sob +seasonal allergies Cardiac:denies chest pain/palpitations GI:denies abd pain, n/v, moving bowels regularly :denies dysuria/hematuria Extrem:denies pain currently-was seen by PCP for neck pain-xray neg. Neuro:denies symptoms of neuropathy to fingers/toes. taking neurontin for surgical nerve pain-100mgtid Endo:occ. hot flashes once in awhile stable Skin:denies rashes/lesions Heme:denies bleeding The ROS is otherwise negative. Past medical history, appointments, medications, allergies reviewed. No changes. EXAM: BP 142/77 Pulse 76 Temp 36.7 C (98 F) (Temporal) Wt 65.3 kg (144 lb) BMI 27.66 kg/m APPEARANCE Well appearing, alert, in no acute distress, well-hydrated, well nourished. HEART RRR with normal S1 and S2, no murmurs LUNG clear to auscultation BREAST FEMALE no mass/nodule b/l, R lateral scar/radiation changes LYMPH NODES No cervical lymphadenopathy, No supraclavicular lymphadenopathy, and No axillary lymphadenopathy. ABDOMEN bowel sounds normoactive, soft, non-tender EXTREMITIES No edema NEURO Awake, alert and oriented x 3, Normal gait, and No involuntary motions. SKIN Skin color, texture, turgor normal, no suspicious rashes or lesions ASSESSMENT/PLAN: 1. Malignant neoplasm of upper-outer quadrant of right breast in female, estrogen receptor positive(HCC) - ICD9: 174.4, V86.0, ICD10: C50.411, Z17.0 pT1c pN1(mi) ER/AR positive (95% and 80% respectively), HER-2 negative (0 on IHC) infiltrating ductal carcinoma the right breast. Oncotype current score 14. Received adjuvant radiation to the breast. Declined adjuvant endocrine therapy. Per Dr. Deng's previous note: Assessment: -pT1c pN1(mi) ER/AR positive (95% and 80% respectively), HER-2 negative (0 on IHC) infiltrating ductal carcinoma the right breast. -Oncotype current score 14. -Received adjuvant radiation to the breast. -Declined adjuvant endocrine therapy. -Chronic intermittent lancinating pain right axilla into superior portion of the breast. She is interested in trying gabapentin. Her takes this medication for neuropathy. -Reviewed the results of yesterday's mammogram. Plan: -Trial of gabapentin 100 mg twice daily. -Office visit in 6 months - No concerning findings on exam. - Pt. declined AI therapy. - Tolerating neurontin well. - Mammogram due mid July 2023. - Continue neurontin 100mg in a.m.. Start 300mg at hs. Advised pt. to send my chart message in 2 weeks with an update on her symptoms and tolerance. - Follow up as scheduled. - Pt. aware to call office with any questions/concerns. The patient indicates understanding of these issues and agrees with the plan. All documentation from previous visit of 08/17/22-Dr. Deng/myself was copied and pasted, documentation has been reviewed and edited as necessary for today's visit. Radha Her APRN.VALERY documented in this encounterUniversity Hospitals Geaug[facility] Center02-25-2023 Miscellaneous Notes* Telephone Encounter - Aleksandr Postshivani LYNNE - 11/24/2022 9:28 AM EST Pt returned call to office, notified of provider response. Pt states pain is improved with NSAID's.She states chiropractor gave her neck exercises to do so she will continue with those also. If she does not improve she will call back for PT order. Aleksandr Guillen LPN * Telephone Encounter - Karmen Man LPN - 11/23/2022 9:11 AM EST TC to pt. LM to call office, ask for triage nurse to get results. Karmen Man LPN * Telephone Encounter - Glo Torres APRN.VALERY - 11/23/2022 7:56 AM EST Can you please call the patient and let her know that I reviewed her x-ray result. X-ray does show some degenerative changes in the neck with some disc space narrowing, this is consistent with arthritis. I would recommend that she continue with the anti-inflammatory, Lodine daily. She may consider physical therapy. If pain does not improve I would recommend she reach out to the office. Please let me know if she would like me to enter the order for physical therapy. Thank you. Gol Torres APRN.VALERY documented in this encounterUniversity Hospitals Geaug[facility] Center02-20-2023 History of Present illness Narrative* Kalie Izaguirre RT(R) - 11/19/2022 11:50 AM EST Radiology Service Progress Note PATIENT NAME: Andre Luther DATE OF SERVICE: November 19, 2022 TIME: 11:51 AM PATIENT IDENTITY VERIFICATION COMPLETED USING TWO (2) IDENTIFIERS: Name and Date of confirmedby patient verbally. FALL SCREENING: Has the patient had 2 falls in the last year or 1 fall with injury or currently using an Ambulatory Assistive Device (Walker, Cane, Wheelchair, Crutches, etc.)? No PATIENT GENDER DATA: Female. status: : No status: NO. PATIENT RELEVANT IMPLANT DATA REVIEWED: Yes RADIOLOGY DEPARTMENT: General X-ray: Exam(s) Completed: Spine X-Ray(s): Cervical AP / LAT / OBL PERIPHERAL IV DATA: Not applicable SIGNED BY: RT Ramin(R) November 19, 2022 11:51 AM documented in this encounterUniversity Hospitals Geaug[facility] Center02-20-2023 Instructions* Patient Instructions* Ivette Diaz APRN.CNP - 11/19/2022 11:43 AM EST Get the neck xray. Start the anti-inflammatories. 3. Continue stretches. 4. Continue ice/heat. 5. Let us know if no better or any worsening. documented in this encounterUniversity Hospitals Geaug[facility] Center02-20-2023 History of Present illness Narrative* Ivette Diaz APRN.CNP - 11/19/2022 11:25 AM EST This is a 72 year old female who presents today with: Patient presents with: Neck Pain: X 5 weeks; chiropractor made worse; doing ice and stretching HISTORY OF PRESENT ILLNESS: Andre Luther is a 72 year old female. Patient presents with: Neck Pain: X 5 weeks; chiropractor made worse; doing ice and stretching Refers that she has been having neck pain X 5 weeks. Refers that she can feel it pulling. Radiates to the back of the neck. Did a soft hammer treatment. Refers that it got worse after that. Worse towards the right. Refers that will feel in posterior neck. Describes mostly as a pulling. No cracking/popping. Chronic n/t in the RUE d/t previous breast CA. She has started icing a few times daily. Started doing the stretches. Uses intermittent tylenol/ibuprofen. PAST MEDICAL HISTORY: PAST MEDICAL HISTORY Diagnosis Date Asthma Breast cancer (HCC) s/p lumpectomy 08/2017, and radiation Macular cyst, hole, or pseudohole of retina Both eyes Osteopenia after menopause PVC (premature ventricular contraction) Shingles PAST SURGICAL HISTORY Procedure Laterality Date BREAST BIOPSY INCISIONAL RIGHT Right 07/2018 BREAST LUMPECTOMY HX Right 09/15/2018 Right NL PM/SNBx: [id number], ER/AR+, HER2 Neg, Grade 1, IDC w/tubular features; 1/2nodes COLONOSCOPY 07/2007, 01/14 nevus 1980 face. POST-CATARACT LASER SURGERY 06/26/12 Yag Capsulotomy OS VITRECTOMY FOR MACULAR HOLE 06/06/2011 L eye. VITRECTOMY MECHANICAL PARS PLANA 02-20-12 [place] Vitrectomy ,MP, PCIOL OD ALLERGIES Cephalosporins, Codeine, Dust, Nortriptyline, Ragweed, Howie [Other], Doxycycline Hyclate, and Pyridium [Phenazopyridine] MEDICATIONS Current Outpatient Medications Medication Sig ipratropium bromide (ATROVENT) 42 mcg (0.06 %) nasal spray Use 2 Sprays in the nose four times daily. calcium carbonate/vitamin D3 (CALCIUM 600 + D,3, ORAL) Take 1 tablet by mouth once daily. Azelastine HCl (OPTIVAR) 0.05 % ophthalmic solution Use 1 Drop in both eyes twice daily as needed (allergies). gabapentin (NEURONTIN) 100 mg capsule Take 1 capsule by mouth three times daily for 180 days. famotidine (PEPCID ORAL) Take 1 tablet by mouth twice daily. albuterol HFA (VENTOLIN HFA) 90 mcg/actuation inhaler Inhale 2 Puffs as instructed every 4 hours asneeded. psyllium husk (METAMUCIL ORAL) Take 1 teaspoonful by mouth once daily. calcium carbonate (CALCIUM 600 ORAL) Take 600 mg by mouth once daily. Cholecalciferol, Vitamin D3, 5,000 unit cap Take 1 capsule by mouth once daily. flaxseed 1,000 mg cap Take 1 capsule by mouth once daily. vit A,C,A-Vzud-Cwttew (PRESERVISION AREDS) 7,160-113-100 lkic-lx-oebi tab Take 1 tablet by mouth twice daily. FOLIC ACID ORAL Take 1 tablet by mouth once daily. Mmar-Dklx-NHZ#2-E-Wpba-Trevon-Bor (OSTEO BI-FLEX) 750-625-30 mg Tab Take 1 tablet by mouth twice daily. dextran 70/hypromellose(ARTIFICIAL TEARS EYE DROPS) as necessary omega-3 fatty acids(FISH OIL 500 MG CAP) Take two(2) capsule daily. MULTIVITAMIN TAB Take one(1) tablet daily. No current facility-administered medications for this visit. FAMILY HISTORY Problem Relation Age of Onset Cataract Mother other (osteopenia) Mother Osteopenia Stroke Mother Heart Father SC Lipids Father High Cholesterol other (Macular Degeneration) Maternal Grandfather Heart Attack Paternal Grandmother Heart Attack Paternal Grandfather Blood Clots Daughter Coronary Artery Disease Paternal Aunt Coronary Artery Disease Paternal Uncle Social History Tobacco Use Smoking status: Never Smokeless tobacco: Never Vaping Use Vaping Use: Never used Substance Use Topics Alcohol use: No Drug use: No EXAM: BP 132/90 Pulse 80 Resp 18 SpO2 97% PHYSICAL EXAM: General Appearance: Well appearing, alert, in no acute distress, well-hydrated, well nourished.. Skin: Skin color, texture, turgor normal, no suspicious rashes or lesions. Head: Normocephalic, no masses, lesions, tenderness or abnormalities. Eyes: Anicteric sclera. Extraocular movements are intact. . Neck: Supple, no adenopathy. ROM intact. Extremities: No deformities, edema, skin discoloration, clubbing or cyanosis. Good capillary refill. Neurologic: Gait normal. Reflexes normal and symmetric. Sensation grossly intact. ASSESSMENT/PLAN: 1. Neck pain - ICD9: 723.1, ICD10: M54.2 We will get x-ray. Start NSAIDs. Continue moist heat/ice. Gentle stretching. Notify provider if no better or any worsening. - XR CERV OTHER 4V AP/LAT/OBL Discussed treatment plan and patient voices understanding. Patient's questions answered appropriately. Medications and potential side effects were discussed and patient voices understanding. Return to the office as scheduled or as needed for worsening/no improvement. Ivette Diaz APRN.VALERY The patient indicates understanding of these issues and agrees with the plan. This note was partially generated using [employer] voice recognition system. Note was reviewed for accuracy. There may be minor misspellings or grammar miscues with [employer] voice recognition. documented in this encounterUniversity Hospitals Geauga Medical Center01-22-2023 Miscellaneous Notes* Telephone Encounter - Farzana Antonia - 10/21/2022 8:23 AM EST Patient given results and verbalized understanding of instructions given. Farzana Knight * Telephone Encounter - Leonor Jerome PA-C - 10/21/2022 8:10 AM EST Please call and let patient know she was positive for influenza A. Continue supportive care. At this point she is out of the window for Tamiflu. If not improving over the next 3 to 5 days follow-up with PCP. documented in this encounterUniversity Hospitals Geauga [facility] Center01-21-2023 History of Present illness Narrative* Rosalba Blanca PA-C - 10/20/2022 2:40 PM EST Subjective HPI HPI Andre Luther is a 72 year old female who presents today for CC of cough and congestion since night. Had been on a trip with family and 2/6 of them have tested positive for influenza A.No body aches, fevers/chills. PMH significant for asthma, for which she is using her ventolin TID. Pt has tried robitussin DM, jerrod, coricidin, ibuprofen, which have seemed to help somewhat. BP 122/74 Pulse 87 Temp 36.7 C (98.1 F) (Tympanic) Resp 18 Wt 64.7 kg (142 lb 9.6 oz) SpO2 99% BMI 27.39 kg/m ALLERGIES Allergen Reactions Cephalosporins Rash Codeine GI Upset Dust Itching Nortriptyline Intolerance Elevated blood pressure and pulse. Ragweed Howie [Other] Doxycycline Hyclate Intolerance Reflux Pyridium [Phenazopy* Other: See Comments dizziness ACTIVE PROBLEM LIST Primary Osteoarthritis of Left Knee Mild Intermittent Asthma Without Complication Osteopenia Malignant Neoplasm of Upper-Outer Quadrant of Right Breast in Female, Estrogen Receptor Positive (Hcc) Gerd Without Esophagitis Elevated Blood Pressure Reading Without Diagnosis of Hypertension Pvc (Premature Ventricular Contraction) Abnormal Stress Test Allergy Family History Problem Relation Age of Onset Cataract Mother other (osteopenia) Mother Osteopenia Stroke Mother Heart Father SC Lipids Father High Cholesterol other (Macular Degeneration) Maternal Grandfather Heart Attack Paternal Grandmother Heart Attack Paternal Grandfather Blood Clots Daughter Coronary Artery Disease Paternal Aunt Coronary Artery Disease Paternal Uncle Social History Tobacco Use Smoking status: Never Smokeless tobacco: Never Vaping Use Vaping Use: Never used Substance Use Topics Alcohol use: No Drug use: No Review of Systems Constitutional: Negative for chills, fever and malaise/fatigue. HENT: Positive for congestion. Negative for ear pain, sinus pain and sore throat. Respiratory: Positive for cough. Negative for sputum production, shortness of breath and wheezing. Cardiovascular: Negative for chest pain. Neurological: Negative for headaches. Objective BP 122/74 Pulse 87 Temp 36.7 C (98.1 F) (Tympanic) Resp 18 Wt 64.7 kg (142 lb 9.6 oz) SpO2 99% BMI 27.39 kg/m Physical Exam Constitutional: General: She is not in acute distress. Appearance: She is not toxic-appearing. HENT: Head: Normocephalic. Comments: Slightly hoarse voice noted Right Ear: Tympanic membrane, ear canal and external ear normal. No drainage. No middle ear effusion. Tympanic membrane is not perforated, erythematous, retracted or bulging. Left Ear: Ear canal normal. No drainage. No middle ear effusion. Tympanic membrane is not perforated, erythematous, retracted or bulging. Nose: No rhinorrhea. Right Sinus: No maxillary sinus tenderness or frontal sinus tenderness. Left Sinus: No maxillary sinus tenderness or frontal sinus tenderness. Mouth/Throat: Pharynx: Uvula midline. No oropharyngeal exudate or posterior oropharyngeal erythema. Tonsils: No tonsillar abscesses. Comments: Mucoid drainage noted posterior oropharynx Eyes: General: Lids are normal. Conjunctiva/sclera: Conjunctivae normal. Cardiovascular: Rate and Rhythm: Normal rate and regular rhythm. Heart sounds: S1 normal and S2 normal. No friction rub. Pulmonary: Effort: Pulmonary effort is normal. Breath sounds: Normal breath sounds. No wheezing, rhonchi or rales. Lymphadenopathy: Head: Right side of head: No submental, submandibular, tonsillar, preauricular, posterior auricular or occipital adenopathy. Left side of head: No submental, submandibular, tonsillar, preauricular, posterior auricular or occipital adenopathy. Cervical: Right cervical: No superficial or posterior cervical adenopathy. Left cervical: No superficial or posterior cervical adenopathy. Neurological: Mental Status: She is alert and oriented to person, place, and time. Psychiatric: Behavior: Behavior is cooperative. ASSESSMENT/PLAN: 1. Viral URI with cough - ICD9: 465.9, ICD10: J06.9 (primary diagnosis) - Discussed viral etiology and rationale for treatment. Covid and flu testing ordered; Results will be released to [facility] in 24-48 hours. Discussed quarantine, social distancing, hand washing/proper hygiene. Rest, fluids, OTC medications discussed. - COVID WITH FLUA+B, ROUTINE 2. Exposure to the flu - ICD9: V01.79, ICD10: Z20.828 2 family members positive, with which she was in close proximity on a trip-- see above - COVID WITH FLUA+B, ROUTINE 3. PND (post-nasal drip) - ICD9: 784.91, ICD10: R09.82 Rx for atrovent nasal to trial on for PND. Discussed medication indications, proper use, and potential adverse effects. All questions and concerns addressed to patient satisfaction. - IPRATROPIUM BROMIDE 42 MCG (0.06 %) NASAL SPRAY Pt advised to see PCP if symptoms persist or progress. Reviewed red flags with patient and when to seek care sooner. The patient indicates understanding of these issues and agrees with the plan. Rosalba Blanca PA-C documented in this encounterUniversity Hospitals Geauga Medical Center12-23-2022 History of Present illness Narrative* Estrada Reddy V, - 09/21/2022 11:19 AM EST HPI: Andre Luther presents with a chief complaint of pain over the Left Ankle. Relating it began about2 months ago and has been painful since that time. Ms. Luther further relates aching pain is worse with ambulation and improved with rest. She has been taking ibuprofen 3 times per day with some symptom relief. She continues to do her regular exercise regimen and states that it does not hurt as much when she is doing exercises as it does when she is just walking. She has noticed some swelling over the lateral ankle at times. PMH: PAST MEDICAL HISTORY Diagnosis Date Asthma Breast cancer (HCC) s/p lumpectomy 08/2017, and radiation Macular cyst, hole, or pseudohole of retina Both eyes Osteopenia after menopause PVC (premature ventricular contraction) Shingles MEDICATIONS: Current Outpatient Medications Medication Sig Dispense Refill LORazepam (ATIVAN) 1 mg tablet Take 0.5-1 tablets by mouth every 8 hours for 30 days. 30 tablet 0 calcium carbonate/vitamin D3 (CALCIUM 600 + D,3, ORAL) Take 1 tablet by mouth once daily. Azelastine HCl (OPTIVAR) 0.05 % ophthalmic solution Use 1 Drop in both eyes twice daily as needed (allergies). 6 mL 2 gabapentin (NEURONTIN) 100 mg capsule Take 1 capsule by mouth three times daily for 180 days. 270 capsule 3 famotidine (PEPCID ORAL) Take 1 tablet by mouth twice daily. albuterol HFA (VENTOLIN HFA) 90 mcg/actuation inhaler Inhale 2 Puffs as instructed every 4 hours asneeded. 1 Inhaler 5 psyllium husk (METAMUCIL ORAL) Take 1 teaspoonful by mouth once daily. calcium carbonate (CALCIUM 600 ORAL) Take 600 mg by mouth once daily. Cholecalciferol, Vitamin D3, 5,000 unit cap Take 1 capsule by mouth once daily. flaxseed 1,000 mg cap Take 1 capsule by mouth once daily. vit A,C,E-Vyti-Riroao (PRESERVISION AREDS) 7,160-113-100 ugqa-gd-kvoo tab Take 1 tablet by mouth twice daily. FOLIC ACID ORAL Take 1 tablet by mouth once daily. Gnqk-Cbaf-EZQ#2-N-Wisd-Trevon-Bor (OSTEO BI-FLEX) 750-625-30 mg Tab Take 1 tablet by mouth twice daily. 60 tablet 3 dextran 70/hypromellose(ARTIFICIAL TEARS EYE DROPS) as necessary 0 omega-3 fatty acids(FISH OIL 500 MG CAP) Take two(2) capsule daily. 0 MULTIVITAMIN TAB Take one(1) tablet daily. 0 No current facility-administered medications for this visit. ALLERGIES: ALLERGIES Allergen Reactions Cephalosporins Rash Codeine GI Upset Dust Itching Nortriptyline Intolerance Elevated blood pressure and pulse. Ragweed Howie [Other] Doxycycline Hyclate Intolerance Reflux Pyridium [Phenazopy* Other: See Comments dizziness LOWER EXTREMITY EXAM: VASC: Palpable pedal pulses bilateral; skin temperature warm to cool from proximal tuberosity to distal digits. Minimal Edema noted on Left Ankle. Pedal hair growth noted bilateral. DERM: Ecchymosis not noted at this time. and there is no evidence of skin tissue breakdown noted at this time. No interdigital maceration or open lesions noted. Toenails are clear and well groomed. ORTHO: Pain on palpation over the ATFL of the Left Ankle area. Pain with inversion / eversion of the foot of affected ankle. Anterior draw test is negative. Palpation over the 5th metatarsal base produced no pain. ROM of ankle / foot on contralateral side WI within normal limits. NEURO: Able to discern between light and dull touch. Protective sensation using SWMF 5.07 is within normallimits. Vibratory sensation tested over 1st MTPJ b/l are within normal limits. RADIOGRAPH: No acute fractures noted, medial, lateral and anterior gutter space congruous. ASSESSMENT: Left Ankle pain with inflammation to the ATFL. TREATMENT: We discussed options for treatment such as rest ice compress and elevate, modify activity, continueon oral NSAIDs or shift to topical NSAID such as Voltaren gel. Patient states that she would preferto proceed with corticosteroid injection to the area as she has been taking NSAIDs and doing conservative measures for several weeks with no resolution of symptoms. HISTORY Joint/Soft Tissue Injection: Left ankle Discussed risks/benefits with patient. Patient agrees to injection. Timeout is performed. Antiseptic preparation: ChloraPrep Anesthesia (cutaneous): Yes Topical skin refrigerant spray (ethyl chloride) Medication Injected: Lidocaine 1% 2 cc and Celestone 3mg No complications observed. Verbal instructions given. Patient left in satisfactory condition. Estrada Reddy DO * Aileen Lucas Ma - 09/21/2022 10:30 AM EST AMB ROOMING INTAKE FLOWSHEET DATA Risk Screening Do you have concerns about personal safety or safety in the home?: No documented in this encounterUniversity Hospitals [facility]12-23-2022 History of Present illness Narrative* Vibha Rosa MD - 09/21/2022 8:44 AM EST Activity Leader offered: Patient declines. Andre is a 72 year old who presents for an annual gynecologic exam without complaints. Grandson just got . Postmenopausal: Yes, no PMB HRT use: No. 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 POST-CATARACT LASER SURGERY 06/26/12 Yag Capsulotomy OS VITRECTOMY FOR MACULAR HOLE 06/06/2011 L eye. VITRECTOMY MECHANICAL PARS PLANA 02-20-12 [place] Vitrectomy ,MP, PCIOL OD FAMILY HISTORY Problem Relation Age of Onset Cataract Mother other (osteopenia) Mother Osteopenia Stroke Mother Heart Father SC Lipids Father High Cholesterol other (Macular Degeneration) Maternal Grandfather Heart Attack Paternal Grandmother Heart Attack Paternal Grandfather Blood Clots Daughter Coronary Artery Disease Paternal Aunt Coronary Artery Disease Paternal Uncle SOCIAL HISTORY Social History Tobacco Use Smoking status: Never Smokeless tobacco: Never Vaping Use Vaping Use: Never used Substance Use Topics Alcohol use: No Drug use: No REVIEW OF SYSTEMS Abdomen: No abdominal pain, nausea, vomiting, diarrhea, or constipation. No bloating, early satiety, indigestion, or increased flatulence. Bladder: No dysuria, gross hematuria, urinary frequency, urinary urgency, or incontinence Breast: No breast lumps, nipple d/c, overlying skin changes, redness or skin retraction Allergies and current medication updated:Yes EXAM: BP 120/80 Ht 5' .5 (1.54m) Wt 143 lb 3.2 oz (65.0kg) BMI 27.50 kg/(m^2). GENERAL: pleasant, female in no apparent distress HEENT: Normocephalic, atraumatic, mucus membranes moist, and no lesions NECK: Supple, full range of motion, no adenopathy, and thyroid normal DERMATOLOGY: Normal BREAST: soft, non-tender, symmetric, no dominant mass, normal nipple-areolar complex, no lymphadenopathy, and no nipple discharge, scar from right lumpectomy noted CHEST: Normal inspiratory effort ABDOMEN: soft, non-tender, and no masses PELVIC: external genitalia atrophic, normal Bartholin's glands, urethra, Hustisford's glands, no vulvar lesions, no cervical lesions, good vaginal support, rectocele noted, physiologic discharge present, normal appearing perineal body and perianal region BIMANUAL: uterus normal size, shape and consistency, no adnexal masses, and non-tender RECTOVAGINAL: deferred. NEURO: exam grossly non-focal EXTREMITIES: normal ASSESSMENT/PLAN: 1) Health maintenance: Pap/HPV screening no longer needed Mammogram up to date Nutrition, exercise and routine health maintenance exams reviewed. BMD: up to date. Continue calcium and vitamin D. Asymptomatic rectocele: Recommend adequate fluid intake, fiber, and avoiding constipation. Discussed option for pelvic floor PT. Would not recommend surgical management at this time as she is asymptomatic. Discussed reasons to call. Discussed option for consultation with uro platen builder up. 2) Follow up one year or sooner as needed Vibha Rosa DO documented in this encounterUniversity Hospitals [facility]11-17-2022 Miscellaneous Notes* Letter - Mammography Coordinator - 08/16/2022 9:22 PM EST August 16, 2022 PID: [id number] Andre Luther [address] [place] [address] Dear Ms. Luther, We are pleased to inform you that the results of your recent breast imaging exam on 08/16/2022 are normal. Early detection of cancer is very important. We also understand recommendations regarding breast cancer screening are controversial. Please discuss with your primary care provider which strategy is best for you and whether a mammogram is right for you. Your imaging studies and report will be kept on [facility] at [facility] as part of your permanent medical record and are available for your continuing care. Thank you for allowing us to help in meeting your health care needs. Sincerely, Dr. Gilman Interpreting Radiologist [facility] (Normal over 40) documented in this encounterUniversity Hospitals Geauga [facility] Center11-17-2022 History of Present illness Narrative* Tonio Boswell Mammo Mike - 08/16/2022 10:10 AM EST Radiology Service Progress Note PATIENT NAME: Andre Luther DATE OF SERVICE: August 16, 2022 TIME: 10:13 AM PATIENT IDENTITY VERIFICATION COMPLETED USING TWO (2) IDENTIFIERS: Name and Date of confirmedby patient verbally. FALL SCREENING: Has the patient had 2 falls in the last year or 1 fall with injury or currently using an Ambulatory Assistive Device (Walker, Cane, Wheelchair, Crutches, etc.)? No PATIENT GENDER DATA: Female. status: : No status: NO. PATIENT RELEVANT IMPLANT DATA REVIEWED: Not Applicable RADIOLOGY DEPARTMENT: Mammography PERIPHERAL IV DATA: Not applicable SIGNED BY: Susan Elkinso Mike August 16, 2022 10:13 AM documented in this encounterUniversity Hospitals Geaug[facility] Center09-14-2022 Miscellaneous Notes* Telephone Encounter - Radha Her APRN.CNP - 06/13/2022 12:18 PM EDT Noted. Radha Her APRN.CNP * Telephone Encounter - Nelly Carrasco - 06/13/2022 9:49 AM EDT Patient called to reschedule her appointments Mammogram from 08/09 to 08/16 D. Her from 08/10 to 08/17 Thank you Nelly Olmos Pss documented in this encounterUniversity Hospitals Geauga [facility] Center08-15-2022 Instructions* Patient Instructions* Ivette Diaz APRN.VALERY - 05/14/2022 3:03 PM EDT Start the augmentin -- twice daily X 10 days. Try the chlorpheniramine for the drainage. Restart the neti pot documented in this encounterUniversity Hospitals Geaug[facility] Center08-15-2022 History of Present illness Narrative* Ivette Diaz APRN.VALERY - 05/14/2022 2:32 PM EDT This is a 72 year old female who presents today with: Patient presents with: Acute Visit: Cough, headache, nasal drainage/ had covid recently HISTORY OF PRESENT ILLNESS: Andre Luther is a 72 year old female. Patient presents with: Acute Visit: Cough, headache, nasal drainage/ had covid recently Pt presents today with complaint of possible sinus infection. Headache. Across the forehead. + drainage. Frequent throat clearing. Now more of either a phlegmy cough or a tight cough. She had covid appx 22 days ago. She chronically has had throat clearing/drainage. She is taking zyrtec. She had tried benadryl,which sometimes is too drying. She has tried dylsym and robitussin dm for cough. She doesn't want to do nasal steroids. She previously has used a neti pot, but stopped for some reason. She cannot do decongestants d/t pvcs. PAST MEDICAL HISTORY: PAST MEDICAL HISTORY Diagnosis Date Asthma Breast cancer (HCC) s/p lumpectomy 08/2017, and radiation Macular cyst, hole, or pseudohole of retina Both eyes Osteopenia after menopause PVC (premature ventricular contraction) Shingles PAST SURGICAL HISTORY Procedure Laterality Date BREAST BIOPSY INCISIONAL RIGHT Right 07/2018 BREAST LUMPECTOMY HX Right 09/15/2018 Right NL PM/SNBx: [id number], ER/AR+, HER2 Neg, Grade 1, IDC w/tubular features; 1/2nodes COLONOSCOPY 07/2007, 01/14 nevus 1980 face. POST-CATARACT LASER SURGERY 06/26/12 Yag Capsulotomy OS VITRECTOMY FOR MACULAR HOLE 06/06/2011 L eye. VITRECTOMY MECHANICAL PARS PLANA 02-20-12 [place] Vitrectomy ,MP, PCIOL OD ALLERGIES Cephalosporins, Codeine, Dust, Nortriptyline, Ragweed, Howie [Other], Doxycycline Hyclate, and Pyridium [Phenazopyridine] MEDICATIONS Current Outpatient Medications Medication Sig gabapentin (NEURONTIN) 100 mg capsule Take 1 capsule by mouth three times daily for 180 days. famotidine (PEPCID ORAL) Take by mouth. Azelastine HCl (OPTIVAR) 0.05 % ophthalmic solution Use 1 Drop in both eyes twice daily as needed (allergies). albuterol HFA (VENTOLIN HFA) 90 mcg/actuation inhaler Inhale 2 Puffs as instructed every 4 hours asneeded. psyllium husk (METAMUCIL ORAL) Take by mouth. calcium carbonate (CALCIUM 600 ORAL) Take 600 mg by mouth once daily. Cholecalciferol, Vitamin D3, 5,000 unit cap Take 1 capsule by mouth once daily. flaxseed 1,000 mg cap Take by mouth once daily. vit A,C,R-Hsfr-Ufpjwu (PRESERVISION AREDS) 7,160-113-100 xezm-ru-idsx tab Take 1 tablet by mouth twice daily. FOLIC ACID ORAL Take by mouth once daily. Vglb-Dopp-APF#7-T-Lijb-Trevon-Bor (OSTEO BI-FLEX) 750-625-30 mg Tab Take 1 tablet by mouth twice daily. dextran 70/hypromellose(ARTIFICIAL TEARS EYE DROPS) as necessary omega-3 fatty acids(FISH OIL 500 MG CAP) Take two(2) capsule daily. MULTIVITAMIN TAB Take one(1) tablet daily. No current facility-administered medications for this visit. FAMILY HISTORY Problem Relation Age of Onset Cataract Mother other (osteopenia) Mother Osteopenia Stroke Mother Heart Father SC Lipids Father High Cholesterol other (Macular Degeneration) Maternal Grandfather Heart Attack Paternal Grandmother Heart Attack Paternal Grandfather Blood Clots Daughter Coronary Artery Disease Paternal Aunt Coronary Artery Disease Paternal Uncle Social History Tobacco Use Smoking status: Never Smokeless tobacco: Never Vaping Use Vaping Use: Never used Substance Use Topics Alcohol use: No Drug use: No EXAM: BP 130/88 Pulse 91 Resp 18 SpO2 95% PHYSICAL EXAM: General Appearance: Well appearing, alert, in no acute distress, well-hydrated, well nourished.. Skin: Skin color, texture, turgor normal, no suspicious rashes or lesions. Head: Normocephalic, no masses, lesions, tenderness or abnormalities. Eyes: Anicteric sclera. Pupils are equally round and reactive to light. Extraocular movements are intact. . Ears: External ears normal, canals clear, Normal TMs bilaterally. Nose/Sinuses: Nares normal, septum midline, mucosa normal, no drainage. + left maxillary tenderness. Oropharynx: Lips, mucosa, and tongue normal, teeth and gums normal, oropharynx normal and Positive findings: + PND. Neck: Supple, no adenopathy Lungs: Lungs clear to auscultation. No wheezing, rhonchi, rales.. Heart: RRR without murmur, gallop, or rubs. No ectopy. Neurologic: Gait normal. ASSESSMENT/PLAN: 1. Acute non-recurrent maxillary sinusitis - ICD9: 461.0, ICD10: J01.00 - Will begin treatment with Augmentin 875 mg PO BID for 10 days - The patient should also be given chlorpheniramine and neti pot for the first 5-7 days of treatment. - Supportive care with plenty of fluids, rest, and analgesia prn. - AMOXICILLIN 875 MG-POTASSIUM CLAVULANATE 125 MG TABLET Discussed treatment plan and patient voices understanding. Patient's questions answered appropriately. Medications and potential side effects were discussed and patient voices understanding. Return to the office as scheduled or as needed for worsening/no improvement. Ivette Diaz APRN.CNP The patient indicates understanding of these issues and agrees with the plan. documented in this encounterUniversity Hospitals Geaug[facility] Center07-29-2022 Miscellaneous Notes* Telephone Encounter - Mariza Zheng RN - 04/27/2022 9:58 AM EDT Patient contacted and given provider's message below. Patient states she will pass on antiviral treatment at this time and will take Robitussin for her cough. Mariza Zheng RN * Telephone Encounter - Abhishek Huynh MD - 04/27/2022 9:34 AM EDT Rest and fluids. Robitussin is ok. Call if worsening shortness of breath. Can consider things like paxlovid if we start soon...however, would need to see one of us here or express care on line virtually to prescribe since is experimental. [facility]. * Telephone Encounter - Mariza Zheng RN - 04/27/2022 9:23 AM EDT Patient reports she tested positive for covid on 04/25/22. Her symptoms started between 04/22 and 04/23. Initially she had nasal congestion, runny nose, cough and fatigue but states she is improving however her cough remains. She denies fever, shortness of breath, chest tightness, wheezing, or other symptoms. 1) Due to her history and being near the end of the window for antiviral medication, she asks if she should make appt to discuss treatment options other than home care? 2) Any further recommendations to help her improve her cough? Please advise patient. Thank you. documented in this encounterUniversity Hospitals Geaug[facility]05-05-2022 Instructions* Patient Instructions* Esthela Waller PA-C - 02/01/2022 5:58 PM EDT Rest the joint over then next five days as much as possible, then start gradually increasing activity and stretching as discussed. The joint injection includes a long acting numbing agent. This will wear off over about 12 hours and pain may return. Over then next 2-3 days it should gradually get better as the cortisone effects take over. documented in this encounterUniversity Hospitals Geaug[facility] Center05-05-2022 History of Present illness Narrative* M Reynaldo Waller PA-C - 02/01/2022 5:31 PM EDT 72 year old female with past history of elevated blood pressure without diagnosis of hypertension, GERD, history of malignant neoplasm of the right breast remote, mild intermittent asthma, history ofPVCs c/o knee flared up a week ago Aching to go Up and down steps Used Tens machine for 30 minute last night, which seemed to help considerably. Tender medial anterior knee. Leaving for vacation to [place] on Saturday. She plans to do a lot of walking and is hoping that she can have cortisone injection to make it possible. Has seen Dr. Reddy in the past in quite some time. Patient identifies she was told by Dr. Reddy not let anyone do anything with the swelling below herright knee which identified with bursitis and could be more complicated by treatment. Patient is requesting that I put in orders for routine lab work. She has controlled gastroesophageal reflux with the use of famotidine [id number]. She is on Neurontin 100 mg 3 times a day for pain following her breast cancer treatment which helps. History of mild intermittent asthma which is controlled off medication with rare use of albuterol MDI. History of osteopenia History of PVCs which occur rarely, no chest pain, shortness of breath, lightheadedness or dizziness. HISTORIES FAMILY HISTORY Problem Relation Age of Onset Cataract Mother other (osteopenia) Mother Osteopenia Stroke Mother Heart Father SC Lipids Father High Cholesterol other (Macular Degeneration) Maternal Grandfather Heart Attack Paternal Grandmother Heart Attack Paternal Grandfather Blood Clots Daughter Coronary Artery Disease Paternal Aunt Coronary Artery Disease Paternal Uncle PAST MEDICAL HISTORY Diagnosis Date Asthma Breast cancer (HCC) s/p lumpectomy 08/2017, and radiation Macular cyst, hole, or pseudohole of retina Both eyes Osteopenia after menopause PVC (premature ventricular contraction) Shingles PAST SURGICAL HISTORY Procedure Laterality Date BREAST BIOPSY INCISIONAL RIGHT Right 07/2018 BREAST LUMPECTOMY HX Right 09/15/2018 Right NL PM/SNBx: [id number], ER/AR+, HER2 Neg, Grade 1, IDC w/tubular features; 1/2nodes COLONOSCOPY 07/2007, 01/14 nevus 1980 face. POST-CATARACT LASER SURGERY 06/26/12 Yag Capsulotomy OS VITRECTOMY FOR MACULAR HOLE 06/06/2011 L eye. VITRECTOMY MECHANICAL PARS PLANA 02-20-12 [place] Vitrectomy ,MP, PCIOL OD Social History Tobacco Use Smoking status: Never Smoker Smokeless tobacco: Never Used Vaping Use Vaping Use: Never used Substance Use Topics Alcohol use: No Drug use: No ACTIVE PROBLEM LIST Primary Osteoarthritis of Left Knee Mild Intermittent Asthma Without Complication Osteopenia Malignant Neoplasm of Upper-Outer Quadrant of Right Breast in Female, Estrogen Receptor Positive (Hcc) Gerd Without Esophagitis Elevated Blood Pressure Reading Without Diagnosis of Hypertension Pvc (Premature Ventricular Contraction) Abnormal Stress Test Allergy Current Outpatient Medications Medication Sig Dispense Refill gabapentin (NEURONTIN) 100 mg capsule Take 1 capsule by mouth three times daily for 180 days. 270 capsule 3 famotidine (PEPCID ORAL) Take by mouth. Azelastine HCl (OPTIVAR) 0.05 % ophthalmic solution Use 1 Drop in both eyes twice daily as needed (allergies). 6 mL 2 albuterol HFA (VENTOLIN HFA) 90 mcg/actuation inhaler Inhale 2 Puffs as instructed every 4 hours asneeded. 1 Inhaler 5 psyllium husk (METAMUCIL ORAL) Take by mouth. calcium carbonate (CALCIUM 600 ORAL) Take 600 mg by mouth once daily. Cholecalciferol, Vitamin D3, 5,000 unit cap Take 1 capsule by mouth once daily. flaxseed 1,000 mg cap Take by mouth once daily. vit A,C,K-Nuqy-Fnblwb (PRESERVISION AREDS) 7,160-113-100 ihav-ua-ofhl tab Take 1 tablet by mouth twice daily. FOLIC ACID ORAL Take by mouth once daily. Gzud-Duqn-RNU#4-X-Nbut-Trevon-Bor (OSTEO BI-FLEX) 750-625-30 mg Tab Take 1 tablet by mouth twice daily. 60 tablet 3 dextran 70/hypromellose(ARTIFICIAL TEARS EYE DROPS) as necessary 0 omega-3 fatty acids(FISH OIL 500 MG CAP) Take two(2) capsule daily. 0 MULTIVITAMIN TAB Take one(1) tablet daily. 0 No current facility-administered medications for this visit. SPIROMETRY Never done DTAP,TDAP,TD(2 - Td or Tdap) due on 06/23/2020 ADVANCE DIRECTIVE DISCUSSION Never done EXAM: BP 120/68 Pulse 84 Resp 16 Wt 65.3 kg (144 lb) SpO2 98% BMI 26.84 kg/m Pleasant adult woman in no acute distress. Alert and oriented all spheres. Normal affect and cognition. Speech normal. No deficits to learning or comprehension. Skin warm, dry, pink to lips and nailbeds. Normal turgor. Respirations regular and unlabored. Chest is normal shape. Lungs are clear to all morrissey with good air exchange through out. HRRR without murmur or gallop. No lifts, heaves, or rubs. Extrem: no clubbing or cyanosis. Edema: none. Extremities are warm and pink with prompt capillary refill. Right knee is tender just above the tibial notch and across the pes anserine bursa where she has considerable swelling. Procedure note: I was unable to find hyperlink for consent form. Patient gave verbal consent after informed the risks and benefits of injection. ID, site, allergies verified. Area was prepped with ChloraPrep and sterile fashion which was maintained throughout. Right knee was injected over the lateral approach tibial notch with 1% lidocaine 2 mL, 0.05% Marcaine 2 mL, Celestone 6 mg/mL 1 mL injected successfully. Patient tolerated well. Patient had significant improvement following. ASSESSMENT/PLAN: 1. GERD without esophagitis - ICD9: 530.81, ICD10: K21.9 (primary diagnosis) -Controlled on current medication 2. Situational anxiety - ICD9: 300.09, ICD10: F41.8 Controlled without use of medication - CBC - COMP METABOLIC PANEL 3. ZIA (generalized anxiety disorder) - ICD9: 300.02, ICD10: F41.1 - CBC - COMP METABOLIC PANEL 4. Hyperglycemia - ICD9: 790.29, ICD10: R73.9 - CBC - COMP METABOLIC PANEL 5. 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 She may use Tylenol if needed Follow-up as necessary. Esthela Waller PA-C documented in this encounterUniversity Hospitals Geauga [facility] Center05-05-2022 Nurse Note* Deedee Butler Ma - 02/01/2022 5:20 PM EDT Is the patient having any pain? Yes LOCATION: Left knee PAIN SCALE: 3 on a scale of 0-10 PAIN CHARACTER: aching DURATION flared up 1-2 weeks FREQUENCY: occurs intermittently AGGRAVATING FACTORS: walking and stairs ALLEVIATING FACTORS: resting, TENS documented in this encounterUniversity Hospitals Geaug[facility] Center05-02-2022 History of Present illness Narrative* Radha Her APRN.PLASTERING SUPERVISOR - 01/29/2022 9:23 AM EDT Chief Complaint Patient presents with: Established Patient HPI: Andre Luther is a 72 year old female who presents here today for follow up breast cancer. Per Dr. Deng's previous note: H/o PVCs, GERD and osteoarthritis of the left knee. Underwent ultrasound-guided core needle biopsy on 08/28/2018. Pathology: Right breast, ultrasound-guided needle core biopsy - Invasive ductal carcinoma, nuclear grade 1. - Estrogen receptor is positive greater than 95% nuclei staining, outside slide reviewed. - Progesterone receptor is positive 80% of nuclei staining, outside slide reviewed. - HER2 by immunohistochemistry is negative +0, outside slide reviewed. Underwent a right partial mastectomy with sentinel lymph node biopsy on 09/15/2018. Pathology: 1. Right axillary sentinel lymph node #1, resection (A) - Micrometastatic adenocarcinoma present in one of two lymph nodes (1/2). See comment. 2. Right breast partial mastectomy (B) - Invasive ductal carcinoma with tubular features, histologic grade 1. Prior biopsy site and clip are identified. See synoptic template. 3. Right breast deep, inferior, superior, medial, anterior, lateral margins, resection (C-H) - Fibrofatty breast tissue with no tumor seen. Oncotype DX recurrence score was 14. Previous therapy: 1) Adjuvant radiation to 4005 cGy to the right breast completed 11/19/2018. Evidently declined endocrine therapy. No new concerns today. Neurontin helping R breast surgical pain. Appetite:Too good. Energy level:Good. No problem. Denies fevers or recent illness. Resp:denies cough or sob +seasonal allergies Cardiac:denies chest pain/palpitations GI:denies abd pain, n/v, moving bowels regularly :denies dysuria/hematuria Extrem:denies pain Neuro:denies symptoms of neuropathy Endo:occ. hot flashes once in awhile Skin:denies rashes/lesions Heme:denies bleeding The ROS is otherwise negative. Past medical history, appointments, medications, allergies reviewed. No changes. EXAM: BP 139/80 Pulse 77 Temp 36.6 C (97.8 F) Ht 156 cm (5' 1.42) Wt 65.8 kg (145 lb) SpO2 100% BMI 27.03 kg/m APPEARANCE Well appearing, alert, in no acute distress, well-hydrated, well nourished. HEART RRR with normal S1 and S2, no murmurs LUNG clear to auscultation BREAST FEMALE R lateral surgical scar/radiation changes, no mass/nodule b/l LYMPH NODES No cervical lymphadenopathy, No supraclavicular lymphadenopathy and No axillary lymphadenopathy. ABDOMEN bowel sounds normoactive, soft, non-tender, non-distended, without organomegaly or palpablemasses EXTREMITIES No edema NEURO Awake, alert and oriented x 3, Normal gait and No involuntary motions. SKIN Skin color, texture, turgor normal, no suspicious rashes or lesions ASSESSMENT/PLAN: 1. Malignant neoplasm of upper-outer quadrant of right breast in female, estrogen receptor positive(HCC) - ICD9: 174.4, V86.0, ICD10: C50.411, Z17.0 pT1c pN1(mi) ER/AR positive (95% and 80% respectively), HER-2 negative (0 on IHC) infiltrating ductal carcinoma the right breast. Oncotype current score 14. Received adjuvant radiation to the breast. Declined adjuvant endocrine therapy. Assessment: -pT1c pN1(mi) ER/AR positive (95% and 80% respectively), HER-2 negative (0 on IHC) infiltrating ductal carcinoma the right breast. -Oncotype current score 14. -Received adjuvant radiation to the breast. -Declined adjuvant endocrine therapy. -Chronic intermittent lancinating pain right axilla into superior portion of the breast. She is interested in trying gabapentin. Her takes this medication for neuropathy. -Reviewed the results of yesterday's mammogram. Plan: -Trial of gabapentin 100 mg twice daily. -Office visit in 6 months - No concerning findings on exam. - Tolerating neurontin well. Effective with surgical pain. Rx sent. - Mammogram due mid July. - Follow up after mammogram. - Pt. aware to call office with any questions/concerns. The patient indicates understanding of these issues and agrees with the plan. All documentation from previous visit of 08/09/22-Dr. Deng was copied and pasted, documentation has been reviewed and edited as necessary for today's visit. 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 Visual acuity with correction is 20/25 RE and 20/20 PH LE. She feels she is not seeing as well out of the right eye. IOP 18 /16. Anterior segment exam is significant for centered PCIOL w/ open PC Both eyes with Ruben nodule ou. Dilated fundus examination demonstrates closed holes and attached retina in both eyes. OCT with slightly progressive ERM OS, stable Right eye. OCT also shows mild drusen. I recommend observation. Would observe. She is using ATs 3-4x a day at the most, would recommend increasing and seeing Cornea in the future. I have confirmed and edited as necessary the relevant ophthalmic history, ROS, and the neuro exam findings as obtained by others. I have seen and examined this patient. I have discussed the case and the management of this patient's care with the Resident/Fellow, if applicable. I also have reviewed and agree with the assessment and plan as stated above and agree withall of its relevant components. Marialuisa Brown MD documented in this encounterUniversity Hospitals Ge[facility]03-21-2022 History of Present illness Narrative* RT Victoriano(R) - 12/18/2021 9:00 AM EDT Radiology Service Progress Note PATIENT NAME: Andre Luther DATE OF SERVICE: December 18, 2021 TIME: 8:57 AM PATIENT IDENTITY VERIFICATION COMPLETED USING TWO (2) IDENTIFIERS: Name and Date of confirmedby patient verbally. FALL SCREENING: Has the patient had 2 falls in the last year or 1 fall with injury or currently using an Ambulatory Assistive Device (Walker, Cane, Wheelchair, Crutches, etc.)? No PATIENT GENDER DATA: Female. status: : No status: NO. PATIENT RELEVANT IMPLANT DATA REVIEWED: Not Applicable RADIOLOGY DEPARTMENT: Bone Density PERIPHERAL IV DATA: Not applicable SIGNED BY: RT Victoriano(R) December 18, 2021 8:57 AM documented in this encounterUniversity Hospitals Ge[facility]06-29-2021 History of Present illness Narrative* Kalie Izaguirre RT(R) - 03/28/2021 12:20 PM EDT Radiology Service Progress Note PATIENT NAME: Andre Luther DATE OF SERVICE: March 28, 2021 TIME: 12:10 PM PATIENT IDENTITY VERIFICATION COMPLETED USING TWO (2) IDENTIFIERS: Name and Date of confirmedby patient verbally. FALL SCREENING: Has the patient had 2 falls in the last year or 1 fall with injury or currently using an Ambulatory Assistive Device (Walker, Cane, Wheelchair, Crutches, etc.)? No PATIENT GENDER DATA: Female. status: : No status: NO. PATIENT RELEVANT IMPLANT DATA REVIEWED: Yes RADIOLOGY DEPARTMENT: General X-ray: Exam(s) Completed: Chest X-Ray PERIPHERAL IV DATA: Not applicable SIGNED BY: RT Ramin(Ephraim) March 28, 2021 12:10 PM documented in this encounterUniversity Hospitals Ge[facility]05-12-2017 History of Past illness Narrative* Problem Noted Date Resolved Date Anal or rectal pain 02/08/2017 09/20/2017 Postmenopausal atrophic vaginitis 06/22/2014 09/08/2019 After-cataract, obscuring vision 04/20/2014 09/20/2017 PCO (posterior capsular opacification), left 09/20/2017 Pain in joint, lower leg 05/06/2012 017 Bilateral pseudophakia 04/01/2012 7 Solar Lentigines 08/07/2011 06/22/2014 Seborrheic Keratosis 08/07/2011 06/22/2014 Nobles Angiomas 08/07/2011 06/22/2014 Cutaneous skin tags 08/07/2011 06/22/2014 documented as of this encounter (statuses as of 12/19/2021) [facility] History of Past illness Narrative* Problem Noted Date Resolved Date Anal or rectal pain 02/08/2017 09/20/2017 Postmenopausal atrophic vaginitis 06/22/2014 09/08/2019 After-cataract, obscuring vision 04/20/2014 09/20/2017 PCO (posterior capsular opacification), left 09/20/2017 Pain in joint, lower leg 05/06/2012 017 Bilateral pseudophakia 04/01/2012 7 Solar Lentigines 08/07/2011 06/22/2014 Seborrheic Keratosis 08/07/2011 06/22/2014 Nobles Angiomas 08/07/2011 06/22/2014 Cutaneous skin tags 08/07/2011 06/22/2014 documented as of this encounter (statuses as of 01/18/2022) [facility] of Past illness Narrative* Problem Noted Date Resolved Date Anal or rectal pain 02/08/2017 09/20/2017 Postmenopausal atrophic vaginitis 06/22/2014 09/08/2019 After-cataract, obscuring vision 04/20/2014 09/20/2017 PCO (posterior capsular opacification), left 09/20/2017 Pain in joint, lower leg 05/06/2012 017 Bilateral pseudophakia 04/01/2012 7 Solar Lentigines 08/07/2011 06/22/2014 Seborrheic Keratosis 08/07/2011 06/22/2014 Nobles Angiomas 08/07/2011 06/22/2014 Cutaneous skin tags 08/07/2011 06/22/2014 documented as of this encounter (statuses as of 01/29/2022) [facility] of [facility] illness Narrative* Problem Noted Date Resolved Date Anal or rectal pain 02/08/2017 09/20/2017 Postmenopausal atrophic vaginitis 06/22/2014 09/08/2019 After-cataract, obscuring vision 04/20/2014 09/20/2017 PCO (posterior capsular opacification), left 09/20/2017 Pain in joint, lower leg 05/06/2012 017 Bilateral pseudophakia 04/01/2012 7 Solar Lentigines 08/07/2011 06/22/2014 Seborrheic Keratosis 08/07/2011 06/22/2014 Nobles Angiomas 08/07/2011 06/22/2014 Cutaneous skin tags 08/07/2011 06/22/2014 documented as of this encounter (statuses as of 02/01/2022) [facility] of [facility] illness Narrative* Problem Noted Date Resolved Date Anal or rectal pain 02/08/2017 09/20/2017 Postmenopausal atrophic vaginitis 06/22/2014 09/08/2019 After-cataract, obscuring vision 04/20/2014 09/20/2017 PCO (posterior capsular opacification), left 09/20/2017 Pain in joint, lower leg 05/06/2012 017 Bilateral pseudophakia 04/01/2012 7 Solar Lentigines 08/07/2011 06/22/2014 Seborrheic Keratosis 08/07/2011 06/22/2014 Nobles Angiomas 08/07/2011 06/22/2014 Cutaneous skin tags 08/07/2011 06/22/2014 documented as of this encounter (statuses as of 04/27/2022) [facility] Narrative* Problem Noted Date Resolved Date Anal or rectal pain 02/08/2017 09/20/2017 Postmenopausal atrophic vaginitis 06/22/2014 09/08/2019 After-cataract, obscuring vision 04/20/2014 09/20/2017 PCO (posterior capsular opacification), left 09/20/2017 Pain in joint, lower leg 05/06/2012 017 Bilateral pseudophakia 04/01/2012 7 Solar Lentigines 08/07/2011 06/22/2014 Seborrheic Keratosis 08/07/2011 06/22/2014 Nobles Angiomas 08/07/2011 06/22/2014 Cutaneous skin tags 08/07/2011 06/22/2014 documented as of this encounter (statuses as of 05/14/2022) [facility] Narrative* Problem Noted Date Resolved Date Anal or rectal pain 02/08/2017 09/20/2017 Postmenopausal atrophic vaginitis 06/22/2014 09/08/2019 After-cataract, obscuring vision 04/20/2014 09/20/2017 PCO (posterior capsular opacification), left 09/20/2017 Pain in joint, lower leg 05/06/2012 017 Bilateral pseudophakia 04/01/2012 7 Solar Lentigines 08/07/2011 06/22/2014 Seborrheic Keratosis 08/07/2011 06/22/2014 Nobles Angiomas 08/07/2011 06/22/2014 Cutaneous skin tags 08/07/2011 06/22/2014 documented as of this encounter (statuses as of 06/13/2022) [facility] Narrative* Problem Noted Date Resolved Date Anal or rectal pain 02/08/2017 09/20/2017 Postmenopausal atrophic vaginitis 06/22/2014 09/08/2019 After-cataract, obscuring vision 04/20/2014 09/20/2017 PCO (posterior capsular opacification), left 09/20/2017 Pain in joint, lower leg 05/06/2012 017 Bilateral pseudophakia 04/01/2012 7 Solar Lentigines 08/07/2011 06/22/2014 Seborrheic Keratosis 08/07/2011 06/22/2014 Nobles Angiomas 08/07/2011 06/22/2014 Cutaneous skin tags 08/07/2011 06/22/2014 documented as of this encounter (statuses as of 08/18/2022) [facility] Narrative* Problem Noted Date Resolved Date Anal or rectal pain 02/08/2017 09/20/2017 Postmenopausal atrophic vaginitis 06/22/2014 09/08/2019 After-cataract, obscuring vision 04/20/2014 09/20/2017 PCO (posterior capsular opacification), left 09/20/2017 Pain in joint, lower leg 05/06/2012 017 Bilateral pseudophakia 04/01/2012 7 Solar Lentigines 08/07/2011 06/22/2014 Seborrheic Keratosis 08/07/2011 06/22/2014 Nobles Angiomas 08/07/2011 06/22/2014 Cutaneous skin tags 08/07/2011 06/22/2014 documented as of this encounter (statuses as of 08/31/2022) [facility] Narrative* Problem Noted Date Resolved Date Anal or rectal pain 02/08/2017 09/20/2017 Postmenopausal atrophic vaginitis 06/22/2014 09/08/2019 After-cataract, obscuring vision 04/20/2014 09/20/2017 PCO (posterior capsular opacification), left 09/20/2017 Pain in joint, lower leg 05/06/2012 017 Bilateral pseudophakia 04/01/2012 7 Solar Lentigines 08/07/2011 06/22/2014 Seborrheic Keratosis 08/07/2011 06/22/2014 Nobles Angiomas 08/07/2011 06/22/2014 Cutaneous skin tags 08/07/2011 06/22/2014 documented as of this encounter (statuses as of 09/22/2022) [facility] Narrative* Problem Noted Date Resolved Date Anal or rectal pain 02/08/2017 09/20/2017 Postmenopausal atrophic vaginitis 06/22/2014 09/08/2019 After-cataract, obscuring vision 04/20/2014 09/20/2017 PCO (posterior capsular opacification), left 09/20/2017 Pain in joint, lower leg 05/06/2012 017 Bilateral pseudophakia 04/01/2012 7 Solar Lentigines 08/07/2011 06/22/2014 Seborrheic Keratosis 08/07/2011 06/22/2014 Nobles Angiomas 08/07/2011 06/22/2014 Cutaneous skin tags 08/07/2011 06/22/2014 documented as of this encounter (statuses as of 09/23/2022) [facility] Narrative* Problem Noted Date Resolved Date Anal or rectal pain 02/08/2017 09/20/2017 Postmenopausal atrophic vaginitis 06/22/2014 09/08/2019 After-cataract, obscuring vision 04/20/2014 09/20/2017 PCO (posterior capsular opacification), left 09/20/2017 Pain in joint, lower leg 05/06/2012 017 Bilateral pseudophakia 04/01/2012 7 Solar Lentigines 08/07/2011 06/22/2014 Seborrheic Keratosis 08/07/2011 06/22/2014 Nobles Angiomas 08/07/2011 06/22/2014 Cutaneous skin tags 08/07/2011 06/22/2014 documented as of this encounter (statuses as of 10/20/2022) [facility] Narrative* Problem Noted Date Resolved Date Anal or rectal pain 02/08/2017 09/20/2017 Postmenopausal atrophic vaginitis 06/22/2014 09/08/2019 After-cataract, obscuring vision 04/20/2014 09/20/2017 PCO (posterior capsular opacification), left 09/20/2017 Pain in joint, lower leg 05/06/2012 017 Bilateral pseudophakia 04/01/2012 7 Solar Lentigines 08/07/2011 06/22/2014 Seborrheic Keratosis 08/07/2011 06/22/2014 Nobles Angiomas 08/07/2011 06/22/2014 Cutaneous skin tags 08/07/2011 06/22/2014 documented as of this encounter (statuses as of 10/21/2022) [facility]ative* Problem Noted Date Resolved Date Anal or rectal pain 02/08/2017 09/20/2017 Postmenopausal atrophic vaginitis 06/22/2014 09/08/2019 After-cataract, obscuring vision 04/20/2014 09/20/2017 PCO (posterior capsular opacification), left 09/20/2017 Pain in joint, lower leg 05/06/2012 017 Bilateral pseudophakia 04/01/2012 7 Solar Lentigines 08/07/2011 06/22/2014 Seborrheic Keratosis 08/07/2011 06/22/2014 Nobles Angiomas 08/07/2011 06/22/2014 Cutaneous skin tags 08/07/2011 06/22/2014 documented as of this encounter (statuses as of 11/19/2022) [facility]* Problem Noted Date Resolved Date Anal or rectal pain 02/08/2017 09/20/2017 Postmenopausal atrophic vaginitis 06/22/2014 09/08/2019 After-cataract, obscuring vision 04/20/2014 09/20/2017 PCO (posterior capsular opacification), left 09/20/2017 Pain in joint, lower leg 05/06/2012 017 Bilateral pseudophakia 04/01/2012 7 Solar Lentigines 08/07/2011 06/22/2014 Seborrheic Keratosis 08/07/2011 06/22/2014 Nobles Angiomas 08/07/2011 06/22/2014 Cutaneous skin tags 08/07/2011 06/22/2014 documented as of this encounter (statuses as of 11/24/2022) [facility]* Problem Noted Date Resolved Date Anal or rectal pain 02/08/2017 09/20/2017 Postmenopausal atrophic vaginitis 06/22/2014 09/08/2019 After-cataract, obscuring vision 04/20/2014 09/20/2017 PCO (posterior capsular opacification), left 09/20/2017 Pain in joint, lower leg 05/06/2012 017 Bilateral pseudophakia 04/01/2012 7 Solar Lentigines 08/07/2011 06/22/2014 Seborrheic Keratosis 08/07/2011 06/22/2014 Nobles Angiomas 08/07/2011 06/22/2014 Cutaneous skin tags 08/07/2011 06/22/2014 documented as of this encounter (statuses as of 11/29/2022) [facility]* Problem Noted Date Resolved Date Anal or rectal pain 02/08/2017 09/20/2017 Postmenopausal atrophic vaginitis 06/22/2014 09/08/2019 After-cataract, obscuring vision 04/20/2014 09/20/2017 PCO (posterior capsular opacification), left 09/20/2017 Pain in joint, lower leg 05/06/2012 017 Bilateral pseudophakia 04/01/2012 7 Solar Lentigines 08/07/2011 06/22/2014 Seborrheic Keratosis 08/07/2011 06/22/2014 Nobles Angiomas 08/07/2011 06/22/2014 Cutaneous skin tags 08/07/2011 06/22/2014 documented as of this encounter (statuses as of 11/30/2022) [facility]* Problem Noted Date Resolved Date Anal or rectal pain 02/08/2017 09/20/2017 Postmenopausal atrophic vaginitis 06/22/2014 09/08/2019 After-cataract, obscuring vision 04/20/2014 09/20/2017 PCO (posterior capsular opacification), left 09/20/2017 Pain in joint, lower leg 05/06/2012 017 Bilateral pseudophakia 04/01/2012 7 Solar Lentigines 08/07/2011 06/22/2014 Seborrheic Keratosis 08/07/2011 06/22/2014 Nobles Angiomas 08/07/2011 06/22/2014 Cutaneous skin tags 08/07/2011 06/22/2014 documented as of this encounter (statuses as of 12/26/2022) [facility]* Problem Noted Date Resolved Date Anal or rectal pain 02/08/2017 09/20/2017 Postmenopausal atrophic vaginitis 06/22/2014 09/08/2019 After-cataract, obscuring vision 04/20/2014 09/20/2017 PCO (posterior capsular opacification), left 09/20/2017 Pain in joint, lower leg 05/06/2012 017 Bilateral pseudophakia 04/01/2012 7 Solar Lentigines 08/07/2011 06/22/2014 Seborrheic Keratosis 08/07/2011 06/22/2014 Nobles Angiomas 08/07/2011 06/22/2014 Cutaneous skin tags 08/07/2011 06/22/2014 documented as of this encounter (statuses as of 01/23/2023) [facility]* Problem Noted Date Resolved Date Anal or rectal pain 02/08/2017 09/20/2017 Postmenopausal atrophic vaginitis 06/22/2014 09/08/2019 After-cataract, obscuring vision 04/20/2014 09/20/2017 PCO (posterior capsular opacification), left 09/20/2017 Pain in joint, lower leg 05/06/2012 017 Bilateral pseudophakia 04/01/2012 7 Solar Lentigines 08/07/2011 06/22/2014 Seborrheic Keratosis 08/07/2011 06/22/2014 Nobles Angiomas 08/07/2011 06/22/2014 Cutaneous skin tags 08/07/2011 06/22/2014 documented as of this encounter (statuses as of 01/24/2023) [facility]* Problem Noted Date Resolved Date Anal or rectal pain 02/08/2017 09/20/2017 Postmenopausal atrophic vaginitis 06/22/2014 09/08/2019 After-cataract, obscuring vision 04/20/2014 09/20/2017 PCO (posterior capsular opacification), left 09/20/2017 Pain in joint, lower leg 05/06/2012 017 Bilateral pseudophakia 04/01/2012 7 Solar Lentigines 08/07/2011 06/22/2014 Seborrheic Keratosis 08/07/2011 06/22/2014 Nobles Angiomas 08/07/2011 06/22/2014 Cutaneous skin tags 08/07/2011 06/22/2014 documented as of this encounter (statuses as of 02/27/2023) [facility]* Problem Noted Date Resolved Date Anal or rectal pain 02/08/2017 09/20/2017 Postmenopausal atrophic vaginitis 06/22/2014 09/08/2019 After-cataract, obscuring vision 04/20/2014 09/20/2017 PCO (posterior capsular opacification), left 09/20/2017 Pain in joint, lower leg 05/06/2012 017 Bilateral pseudophakia 04/01/2012 7 Solar Lentigines 08/07/2011 06/22/2014 Seborrheic Keratosis 08/07/2011 06/22/2014 Nobles Angiomas 08/07/2011 06/22/2014 Cutaneous skin tags 08/07/2011 06/22/2014 documented as of this encounter (statuses as of 03/22/2023) [facility]* Problem Noted Date Diagnosed Date Resolved Date Anal or rectal pain 02/08/2017 09/20/20 17 Postmenopausal atrophic vaginitis 06/22/2014 09/08/2019 After-cataract, obscuring vision 04/20/2014 09/20/2017 PCO (posterior capsular opacification), left 2 09/20/2017 Pain in joint, lower leg 05/06/2012 Bilateral pseudophakia 04/01/201209/20 Solar Lentigines 08/07/2011 06/22/2014 Seborrheic Keratosis 08/07/2011 014 Nobles Angiomas 08/07/2011 06/22/2014 Cutaneous skin tags 08/07/2011 06/22/20 14 documented as of this encounter (statuses as of 04/17/2023) [facility]* Problem Noted Date Diagnosed Date Resolved Date Anal or rectal pain 02/08/2017 09/20/20 17 Postmenopausal atrophic vaginitis 06/22/2014 09/08/2019 After-cataract, obscuring vision 04/20/2014 09/20/2017 PCO (posterior capsular opacification), left 2 09/20/2017 Pain in joint, lower leg 05/06/2012 Bilateral pseudophakia 04/01/201209/20 Solar Lentigines 08/07/2011 06/22/2014 Seborrheic Keratosis 08/07/2011 014 Nobles Angiomas 08/07/2011 06/22/2014 Cutaneous skin tags 08/07/2011 06/22/20 14 documented as of this encounter (statuses as of 05/14/2023) [facility]* Problem Noted Date Diagnosed Date Resolved Date Anal or rectal pain 02/08/2017 09/20/20 17 Postmenopausal atrophic vaginitis 06/22/2014 09/08/2019 After-cataract, obscuring vision 04/20/2014 09/20/2017 PCO (posterior capsular opacification), left 2 09/20/2017 Pain in joint, lower leg 05/06/2012 Bilateral pseudophakia 04/01/201209/20 Solar Lentigines 08/07/2011 06/22/2014 Seborrheic Keratosis 08/07/2011 014 Nobles Angiomas 08/07/2011 06/22/2014 Cutaneous skin tags 08/07/2011 06/22/20 14 documented as of this encounter (statuses as of 05/24/2023) [facility]* Problem Noted Date Diagnosed Date Resolved Date Anal or rectal pain 02/08/2017 09/20/20 17 Postmenopausal atrophic vaginitis 06/22/2014 09/08/2019 After-cataract, obscuring vision 04/20/2014 09/20/2017 PCO (posterior capsular opacification), left 2 09/20/2017 Pain in joint, lower leg 05/06/2012 Bilateral pseudophakia 04/01/201209/20 Solar Lentigines 08/07/2011 06/22/2014 Seborrheic Keratosis 08/07/2011 014 Nobles Angiomas 08/07/2011 06/22/2014 Cutaneous skin tags 08/07/2011 06/22/20 14 documented as of this encounter (statuses as of 06/03/2023) [facility]* Problem Noted Date Diagnosed Date Resolved Date Anal or rectal pain 02/08/2017 09/20/20 17 Postmenopausal atrophic vaginitis 06/22/2014 09/08/2019 After-cataract, obscuring vision 04/20/2014 09/20/2017 PCO (posterior capsular opacification), left 2 09/20/2017 Pain in joint, lower leg 05/06/2012 Bilateral pseudophakia 04/01/201209/20 Solar Lentigines 08/07/2011 06/22/2014 Seborrheic Keratosis 08/07/2011 014 Nobles Angiomas 08/07/2011 06/22/2014 Cutaneous skin tags 08/07/2011 06/22/20 14 documented as of this encounter (statuses as of 06/06/2023) [facility] History of Past illness Narrative* Problem Noted Date Diagnosed Date Resolved Date Anal or rectal pain 02/08/2017 09/20/20 17 Postmenopausal atrophic vaginitis 06/22/2014 09/08/2019 After-cataract, obscuring vision 04/20/2014 09/20/2017 PCO (posterior capsular opacification), left 2 09/20/2017 Pain in joint, lower leg 05/06/2012 Bilateral pseudophakia 04/01/201209/20 Solar Lentigines 08/07/2011 06/22/2014 Seborrheic Keratosis 08/07/2011 014 Nobles Angiomas 08/07/2011 06/22/2014 Cutaneous skin tags 08/07/2011 06/22/20 14 documented as of this encounter (statuses as of 08/04/2023) [facility] History of Past illness Narrative* Problem Noted Date Diagnosed Date Resolved Date Anal or rectal pain 02/08/2017 09/20/20 17 Postmenopausal atrophic vaginitis 06/22/2014 09/08/2019 After-cataract, obscuring vision 04/20/2014 09/20/2017 PCO (posterior capsular opacification), left 2 09/20/2017 Pain in joint, lower leg 05/06/2012 Bilateral pseudophakia 04/01/201209/20 Solar Lentigines 08/07/2011 06/22/2014 Seborrheic Keratosis 08/07/2011 014 Nobles Angiomas 08/07/2011 06/22/2014 Cutaneous skin tags 08/07/2011 06/22/20 14 documented as of this encounter (statuses as of 08/26/2023) [facility] History of Past illness Narrative* Problem Noted Date Diagnosed Date Resolved Date Anal or rectal pain 02/08/2017 09/20/20 17 Postmenopausal atrophic vaginitis 06/22/2014 09/08/2019 After-cataract, obscuring vision 04/20/2014 09/20/2017 PCO (posterior capsular opacification), left 2 09/20/2017 Pain in joint, lower leg 05/06/2012 Bilateral pseudophakia 04/01/201209/20 Solar Lentigines 08/07/2011 06/22/2014 Seborrheic Keratosis 08/07/2011 014 Nobles Angiomas 08/07/2011 06/22/2014 Cutaneous skin tags 08/07/2011 06/22/20 14 documented as of this encounter (statuses as of 09/04/2023) [facility] History of Past illness Narrative* Problem Noted Date Diagnosed Date Resolved Date Anal or rectal pain 02/08/2017 09/20/20 17 Postmenopausal atrophic vaginitis 06/22/2014 09/08/2019 After-cataract, obscuring vision 04/20/2014 09/20/2017 PCO (posterior capsular opacification), left 2 09/20/2017 Pain in joint, lower leg 05/06/2012 Bilateral pseudophakia 04/01/201209/20 Solar Lentigines 08/07/2011 06/22/2014 Seborrheic Keratosis 08/07/2011 014 Nobles Angiomas 08/07/2011 06/22/2014 Cutaneous skin tags 08/07/2011 06/22/20 14 documented as of this encounter (statuses as of 12/03/2023) [facility] note* Diagnosis Osteopenia, unspecified location Asymptomatic menopausal state Asymptomatic postmenopausal status (age-related) (natural) [facility] Diagnosis Macular hole, bilateral- Primary [facility] Diagnosis Malignant neoplasm of upper-outer quadrant of right breast in female, estrogen receptor positive (HCC)- Primary [facility] Diagnosis GERD without esophagitis- Primary Esophageal reflux Situational anxiety Other anxiety states ZIA (generalized anxiety disorder) Generalized anxiety disorder Hyperglycemia Other abnormal glucose Primary osteoarthritis of left knee Primary localized osteoarthrosis, lower leg Effusion, left knee [facility] Diagnosis Acute non-recurrent maxillary sinusitis- Primary [facility] Diagnosis PVC (premature ventricular contraction)- Primary Other premature beats Elevated blood pressure reading without diagnosis of hypertension Abnormal stress test Other nonspecific abnormal cardiovascular system function study Heart disease, unspecified Heart disease, unspecified [facility] Diagnosis Encounter for gynecological examination (general) (routine) without abnormal findings- Primary Encounter for screening mammogram for breast cancer [facility] Diagnosis Acute left ankle pain- Primary [facility] Diagnosis Viral URI with cough- Primary Acute upper respiratory infections of unspecified site Exposure to the flu Contact with or exposure to other viral diseases PND (post-nasal drip) Postnasal drip [facility] Diagnosis Neck pain- Primary Cervicalgia [facility] Diagnosis Malignant neoplasm of upper-outer quadrant of right breast in female, estrogen receptor positive (HCC)- Primary [facility]* Diagnosis Rectocele- Primary [facility] Diagnosis Rectocele- Primary Cystocele, midline Urethral caruncle [facility] Diagnosis 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 Dry eye syndrome of bilateral lacrimal glands Tear film insufficiency, unspecified Meibomian gland dysfunction (MGD) of upper and lower lids of both eyes Macular hole, bilateral Regular astigmatism of both eyes Regular astigmatism [facility] Diagnosis Mixed hyperlipidemia- Primary Mild intermittent asthma without complication Unspecified asthma Malignant neoplasm of upper-outer quadrant of right breast in female, estrogen receptor positive (HCC) GERD without esophagitis Esophageal reflux PVC (premature ventricular contraction) Other premature beats Osteopenia, unspecified location Elevated blood pressure reading without diagnosis of hypertension [facility] Diagnosis Rectocele- Primary Cystocele, midline Muscle weakness Muscle weakness (generalized) documented [facility] Diagnosis Rectocele- Primary Cystocele, midline Muscle weakness Muscle weakness (generalized) documented [facility] Diagnosis Elevated blood pressure reading without diagnosis of hypertension- Primary PVC (premature ventricular contraction) Other premature beats GERD without esophagitis Esophageal reflux Osteopenia, unspecified location Mixed hyperlipidemia [facility] Diagnosis Rectocele- Primary Urethral caruncle Vaginal atrophy Postmenopausal atrophic vaginitis documented [facility] Diagnosis Encounter for screening mammogram for breast cancer History of breast cancer Personal history of malignant neoplasm of breast [facility] Diagnosis Paresthesia- Primary Disturbance of skin sensation Situational anxiety Other anxiety states [facility] Diagnosis Regular astigmatism of both eyes- Primary Regular astigmatism 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 Meibomian gland dysfunction (MGD) of upper and lower lids of both eyes Dry eye syndrome of bilateral lacrimal glands Tear film insufficiency, unspecified Macular hole, bilateral [facility] Diagnosis Elevated blood pressure reading without diagnosis of hypertension- Primary PVC (premature ventricular contraction) Other premature beats Malignant neoplasm of upper-outer quadrant of right breast in female, estrogen receptor positive (HCC) Mild intermittent asthma without complication Unspecified asthma Osteopenia, unspecified location Mixed hyperlipidemia PND (post-nasal drip) Postnasal drip Situational anxiety Other anxiety states Encounter for screening for osteoporosis Special screening for osteoporosis Asymptomatic menopausal state Asymptomatic postmenopausal status (age-related) (natural) documented [facility] this [facility] Diagnosis Osteopenia, unspecified location Encounter for screening for osteoporosis Special screening for osteoporosis Asymptomatic menopausal state Asymptomatic postmenopausal status (age-related) (natural) documented [facility] this [facility] Diagnosis Mixed hyperlipidemia [facility]* Diagnosis Personal history of malignant neoplasm of breast- Primary Encounter for screening mammogram for high-risk patient [facility] Diagnosis Macular hole, bilateral- Primary [facility] Diagnosis Pain of left lower extremity- Primary Elevated blood pressure reading without diagnosis of hypertension GERD without esophagitis Esophageal reflux [facility] Pain in right ordoñez- Primary [facility] Diagnosis 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 [facility] Diagnosis Pain in right ordoñez- Primary [facility] Diagnosis Pain in right ordoñez [facility] Diagnosis 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 Post-op pain Other acute postoperative pain [facility] Diagnosis 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 [facility] Diagnosis 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 of both eyes Regular astigmatism Meibomian gland dysfunction (MGD) of upper and lower lids of both eyes Dry eye syndrome of bilateral lacrimal glands Tear film insufficiency, unspecified Macular hole, bilateral [facility] Diagnosis Elevated blood pressure reading without diagnosis of hypertension- Primary Mild intermittent asthma without complication Unspecified asthma GERD without esophagitis Esophageal reflux Malignant neoplasm of upper-outer quadrant of right breast in female, estrogen receptor positive (HCC) Primary osteoarthritis of left knee Primary localized osteoarthrosis, lower leg Lightheaded Dizziness and giddiness Numbness of right hand Leukopenia, unspecified type Screening for depression Encounter for screening examination for other mental health and behavioral disorders [facility] Diagnosis Neck pain Cervicalgia [facility]* Diagnosis Elevated blood pressure reading without diagnosis of hypertension- Primary Mild intermittent asthma without complication Unspecified asthma PVC (premature ventricular contraction) Other premature beats GERD without esophagitis Esophageal reflux Malignant neoplasm of upper-outer quadrant of right breast in female, estrogen receptor positive (HCC) Osteopenia, unspecified location Allergy, subsequent encounter Mixed hyperlipidemia [facility] Cough [facility] Diagnosis Encounter for follow-up surveillance of breast cancer- Primary Unspecified follow-up examination Personal history of malignant neoplasm of breast [facility] Diagnosis Encounter for follow-up surveillance of breast cancer- Primary Unspecified follow-up examination Personal history of malignant neoplasm of breast [facility] Diagnosis Personal history of malignant neoplasm of breast Encounter for screening mammogram for high-risk patient [facility] Diagnosis Elevated blood pressure reading without diagnosis of hypertension- Primary Moderate mixed hyperlipidemia not requiring statin therapy [facility] Diagnosis Encounter for follow-up surveillance of breast cancer- Primary Unspecified follow-up examination documented in this encounter [facility] noteNo assessment information availableWUniversity [facility] Work Phone: Evaluation note* Diagnosis Neoplasm of bladder- Primary Neoplasm of unspecified nature of bladder Bladder disorders in diseases classified elsewhere Symptom involving bladder documented in this encounter [facility] note* Diagnosis Screening for genitourinary condition Screening for other and unspecified genitourinary condition Neoplasm of bladder Neoplasm of unspecified nature of bladder [facility] Diagnosis Screening for genitourinary condition Screening for other and unspecified genitourinary condition Neoplasm of bladder Neoplasm of unspecified nature of bladder [facility] Diagnosis Screening for genitourinary condition Screening for other and unspecified genitourinary condition Screening for genitourinary condition Screening for other and unspecified genitourinary condition Neoplasm of bladder Neoplasm of unspecified nature of bladder [facility] Diagnosis Pre-op exam- Primary Preoperative examination, unspecified Neoplasm of bladder Neoplasm of unspecified nature of bladder [facility] Diagnosis Pre-op exam- Primary Preoperative examination, unspecified Neoplasm of bladder Neoplasm of unspecified nature of bladder Screening for genitourinary condition Screening for other and unspecified genitourinary condition [facility] Diagnosis Urinary urgency- Primary Urgency of urination Urinary frequency [facility] Diagnosis Malignant neoplasm of upper-outer quadrant of right breast in female, estrogen receptor positive (HCC)- Primary [facility] Diagnosis Encounter for follow-up surveillance of breast cancer- Primary Unspecified follow-up examination Malignant neoplasm of upper-outer quadrant of right breast in female, estrogen receptor positive (HCC) Encounter for screening mammogram for high-risk patient documented [facility] Diagnosis Urinary urgency- Primary Urgency of urination Bladder irritation Other specified disorders of bladder [facility] Diagnosis Situational anxiety Other anxiety states Mixed hyperlipidemia documented in this encounter [facility] note* Diagnosis Malignant neoplasm of upper-outer quadrant of right breast in female, estrogen receptor positive (HCC)- Primary [facility] this [facility]* Diagnosis Hypercholesteremia- Primary Pure hypercholesterolemia PVC (premature ventricular contraction) Other premature beats Cardiac risk counseling Other specified counseling Elevated blood pressure reading without diagnosis of hypertension documented in this encounter [facility] note* Diagnosis Macular hole, bilateral- Primary [facility] this [facility]* Diagnosis Screening for genitourinary condition- Primary Screening for other and unspecified genitourinary condition History of bladder cancer Personal history of malignant neoplasm of bladder Malignant neoplasm of overlapping sites of bladder (HCC) Malignant neoplasm of other specified sites of bladder documented in this encounter [facility] note* Diagnosis Malignant neoplasm of upper-outer quadrant of right breast in female, estrogen receptor positive (HCC)- Primary Malignant neoplasm of overlapping sites of bladder (HCC) Malignant neoplasm of other specified sites of bladder [facility] Diagnosis Malignant neoplasm of overlapping sites of bladder (HCC)- Primary Malignant neoplasm of other specified sites of bladder documented in this encounter [facility] for referral (narrative)* Outpatient Procedure (Routine) - Authorized Specialty Diagnoses / Procedures Referred By Contac t Referred To [facility] Diagnoses PVC (premature ventricular contraction) Elevated blood pressure reading without diagnosis of hypertension Abnormal stress test Procedures ECG COMPLETE ECG ROUTINE ECG W/LEAST 12 LDS W/I&R Carlton Verde MD [address] [place] [address] [facility] [place] [address] Referral ID Status Reason Start Date Expiration Date Visits Requested Visits Authorized [id number] Authorized Auto-Generat ed Referral 08/31/2022 08/31/2023 1 1 [facility] for referral (narrative)* Diagnostic Procedure Only (Routine) - Pending Review Specialty Diagnoses / Procedures Referred By Ashley vance Referred To Contact [facility] Diagnoses Encounter for screening mammogram for breast cancer Procedures GERARDO SCREENING SCREENING MAMMOGRAPHY BI 2-VIEW BREAST INC Vibha Delcid MD [address] [place] [address] [facility] [address] [address] Referral ID Status Reason Start Date Expiration Date Visits Requested Visits Authorized [id number] Pending Review Auto-Generat ed Referral 10/21/2023 1 1 [facility] for referral (narrative)* Diagnostic Procedure Only (Routine) - Closed Specialty Diagnoses / Procedures Referred By Augustineac t Referred To Contact XR IMAGING Diagnoses Neck pain Procedures XR CERV OTHER 4V AP/LAT/OBL RADEX SPINE CERVICAL 4 OR 5 VIEWS Ivette Diaz, PLASTERING SUPERVISOR [address] [place] [address] [facility] Referral ID Status Reason Start Date Expiration Date V isits Requested Visits Authorized [id number] Closed Auto-Generate d Referral 11/19/2022 12/19/2023 1 1 [facility] for referral (narrative)* Diagnostic Procedure Only (Routine) - Closed Specialty Diagnoses / Procedures Referred By Ashley vance Referred To Contact [facility] Diagnoses Encounter for screening mammogram for breast cancer History of breast cancer Procedures GERARDO SCREENING SCREENING MAMMOGRAPHY BI 2-VIEW BREAST INC Vibha Delcid MD [address] [place] [address] [facility] [address] [place] [address] Referral ID Status Reason Start Date Expiration Date V isits Requested Visits Authorized [id number] Closed Auto-Generate d Referral 09/18/2021 10/18/2022 1 1 [facility] for referral (narrative)* Diagnostic Procedure Only (Routine) - Authorized Specialty Diagnoses / Procedures Referred By Contac t Referred To Contact XR IMAGING Diagnoses Osteopenia, unspecified location Encounter for screening for osteoporosis Asymptomatic menopausal state Procedures DXA-AXIAL SKELETON Abhishek Huynh MD [address] [place] [address] [place] [address] Referral ID Status Reason Start Date Expiration Date Visits Requested Visits Authorized [id number] Authorized Auto-Generat ed Referral 12/23/2023 01/21/2025 1 1 [facility] for referral (narrative)* Diagnostic Procedure Only (Routine) - Authorized Specialty Diagnoses / Procedures Referred By Contac t Referred To Contact [facility] Diagnoses Personal history of malignant neoplasm of breast Encounter for screening mammogram for high-risk patient Procedures GERARDO SCREENING SCREENING MAMMOGRAPHY BI 2-VIEW BREAST INC Radha Neff, PAYTON [address] [place] [address] [facility] [address] [place] [address] Referral ID Status Reason Start Date Expiration Date Visits Requested Visits Authorized [id number] Authorized Auto-Generat ed Referral 02/18/2024 03/19/2025 1 1 [facility] for referral (narrative)* Diagnostic Procedure Only (Routine) - Pending Review Specialty Diagnoses / Procedures Referred By Contac t Referred To Contact XR IMAGING Diagnoses Pain in right ordoñez Procedures XR TIBIA FIBULA 2V AP/LAT RIGHT RADIOLOGIC EXAMINATION TIBIA & FIBULA 2 VIEWS Estrada Reddy V, DO [address] [place] [address] [place] [address] Referral ID Status Reason Start Date Expiration Date Visits Requested Visits Authorized [id number] Pending Review Auto-Generat ed Referral 03/26/2024 04/25/2025 1 1 [facility] for referral (narrative)* Diagnostic Procedure Only (Routine) - Closed Specialty Diagnoses / Procedures Referred By Ashley t Referred To Contact XR IMAGING Diagnoses Neck pain Procedures XR CERV OTHER 4V AP/LAT/OBL RADEX SPINE CERVICAL 4 OR 5 VIEWS Ivette Diaz, NARDA.PLASTERING SUPERVISOR [address] [place] [address] [place] [address] Referral ID Status Reason Start Date Expiration Date V isits Requested Visits Authorized [id number] Closed Auto-Generate d Referral 11/19/2022 12/19/2023 1 1 [facility] for referral (narrative)* Diagnostic Procedure Only (Routine) - Closed Specialty Diagnoses / Procedures Referred By Ashley t Referred To Contact [facility] Diagnoses Personal history of malignant neoplasm of breast Encounter for screening mammogram for high-risk patient Procedures GERARDO SCREENING SCREENING MAMMOGRAPHY BI 2-VIEW BREAST INC CAD Radha Her APRN.VALERY [address] [place] [address] [facility] [address] [place] [address] Referral ID Status Reason Start Date Expiration Date V isits Requested Visits Authorized [id number] Closed Auto-Generate d Referral 02/18/2024 03/19/2025 1 1 [facility] for referral (narrative)No reason for referral information availableWUniversity [facility]als [facility] Work Phone: Reason for visit Narrative* Diagnostic Procedure Only (Routine) - Closed Specialty Diagnoses / Procedures Referred By Ashley t Referred To Contact [facility] Diagnoses Encounter for screening mammogram for breast cancer History of breast cancer Procedures GERARDO SCREENING SCREENING MAMMOGRAPHY BI 2-VIEW BREAST INC Vibha Delcid MD [address] [place] [address] [facility] [address] [place] [address] Referral ID Status Reason Start Date Expiration Date V isits Requested Visits Authorized [id number] Closed Auto-Generate d Referral 09/18/2021 10/18/2022 1 1 [facility] for visit Narrative* Diagnostic Procedure Only (Routine) - Closed Specialty Diagnoses / Procedures Referred By Contac t Referred To Contact XR IMAGING Diagnoses Osteopenia, unspecified location Encounter for screening for osteoporosis Asymptomatic menopausal state Procedures DXA-AXIAL SKELETON Abhishek Huynh MD [address] [place] [address] [place] [address] Referral ID Status Reason Start Date Expiration Date V isits Requested Visits Authorized [id number] Closed Auto-Generate d Referral 12/23/2023 01/21/2025 1 1 [facility] for visit Narrative* Diagnostic Procedure Only (Routine) - Closed Specialty Diagnoses / Procedures Referred By Contac t Referred To Contact XR IMAGING Diagnoses Pain in right ordoñez Procedures XR TIBIA FIBULA 2V AP/LAT RIGHT RADIOLOGIC EXAMINATION TIBIA & FIBULA 2 VIEWS Estrada Reddy V, DO [address] [place] [address] [place] [address] Referral ID Status Reason Start Date Expiration Date V isits Requested Visits Authorized [id number] Closed Auto-Generate d Referral 03/26/2024 04/25/2025 1 1 [facility] for visit Narrative* Diagnostic Procedure Only (Routine) - Closed Specialty Diagnoses / Procedures Referred By Contac t Referred To Contact XR IMAGING Diagnoses Neck pain Procedures XR CERV OTHER 4V AP/LAT/OBL RADEX SPINE CERVICAL 4 OR 5 VIEWS Ivette Diaz, FUR FINISHER.PLASTERING SUPERVISOR [address] [place] [address] [place] [address] Referral ID Status Reason Start Date Expiration Date V isits Requested Visits Authorized [id number] Closed Auto-Generate d Referral 11/19/2022 12/19/2023 1 1 [facility] for visit Narrative* Diagnostic Procedure Only (Routine) - Closed Specialty Diagnoses / Procedures Referred By Contac t Referred To Contact BR IMAGING Diagnoses Personal history of malignant neoplasm of breast Encounter for screening mammogram for high-risk patient Procedures GERARDO SCREENING SCREENING MAMMOGRAPHY BI 2-VIEW BREAST INC Radha Neff APRN.PLASTERING SUPERVISOR [address] [place] [address] [facility] [address] [place] [address] Referral ID Status Reason Start Date Expiration Date V isits Requested Visits Authorized [id number] Closed Auto-Generate d Referral 02/18/2024 03/19/2025 1 1 [facility] for visit Narrative* MRI/CT (Urgent) - Closed Specialty Diagnoses / Procedures Referred By Ashley vance Referred To Contact CT IMAGING Diagnoses Screening for genitourinary condition Procedures CT UROGRAM WO/W IVCON CT ABD & PELVIS W/WO CONTRST 1+ BODY REGNS Nikole Bailey MD [address] [place] [address] Phone: tel: fax: CT IMAGING [id number] Referral ID Status Reason Start Date Expiration Date V isits Requested Visits Authorized [id number] Closed Auto-Generate d Referral 01/06/2025 02/05/2026 1 1 [facility] for visit Narrative* Tennyson Prior Authorization (Routine) - Authorized Specialty Diagnoses / Procedures Referred By Ashley vance Referred To Contact Diagnoses Malignant neoplasm of overlapping sites of bladder (HCC) Nikole Bailey MD [address] [place] [address] Phone: tel: fax: Urology [address] [address] Phone: tel: Referral ID Status Reason Start Date Expiration Date V isits Requested Visits Authorized [id number] Authorized 05/24/2025 08/22/2025 99 99 [facility] Advance Directives No Advanced Directives Records FoundDocuments on File Type Date 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 Yes December 21, 2024 11:47pm Name of Medical Power of Documentation Consultant azael luther December 21, 2024 11:47pm Medications Administered Section Active Administered Medications - up to 3 most recent administrations Medication Order MAR Action Action Date Dose Rate Site fluorescein-benoxinate 0.25-0.4 % 1 Drop (FLURESS) 1 Drop, BOTH EYES, DIRECTED, Starting on Eun 01/18/22 at 1030, Until Eun 01/18/22 at 2229, Administer for applanation tonometry. In the event of a Fluress shortage, administer 1 drop of [place]-Fluor into both eyes as directed for applanation tonometry., [facility] MED ORDERS Given 01/18/2022 10:30 AM EDT 1 Drop PHENYLephrine 2.5 % 1 Drop (AK-DILATE, RICHIE-SYNEPHRINE) 1 Drop, BOTH EYES, DIRECTED, Starting on Eun 01/18/22 at 1030, Until Eun 01/18/22 at 2229, Administer for dilation PROTECT FROM LIGHT, [facility] MED ORDERS Given 01/18/2022 10:30 AM EDT 1 Drop tropicamide 1 % 1 Drop (MYDRIACYL) 1 Drop, BOTH EYES, DIRECTED, Starting on Eun 01/18/22 at 1030, Until Eun 01/18/22 at 2229, Administer for dilation, [facility] MED ORDERS Given 01/18/2022 10:30 AM EDT 1 Drop Inactive Administered Medications - up to 3 most recent administrations Medication Order MAR Action Action Date Dose Rate Site betamethasone acetate-betamethasone sodium phosphate 6 mg, bupivacaine (PF) 0.25 % (2.5 mg/mL) 5 mg, lidocaine (PF) 10 mg/mL (1 %) 20 mg INTRA-ARTICULAR, ONCE, 1 dose, On Eun 02/01/22 at 1930, EXP: Given 02/01/2022 7:11 PM EDT Knee, Left Inactive Administered Medications - up to 3 most recent administrations Medication Order MAR Action Action Date Dose Rate Site betamethasone acetate-betamethasone sodium phosphate 3 mg injection (CELESTONE) 3 mg, OTHER, ONCE, 1 dose, On Sat09/21/22 at 1130, Intra-Articular Protect From Light. Given 09/21/2022 11:19 AM EST 3 mg Health Concerns Infection Onset Date Last Indicated Resolved Time COVID-19 Rule-Out 10/20/2022 10/20/2022 Infection Onset Date Last Indicated Resolved Time COVID-19 Rule-Out 10/20/2022 10/20/2022 10/21/2022 4:10 AM EST Reason for Referral Specialty Diagnoses / Procedures Referred By Ashley t Referred To Contact Diagnoses Rectocele Procedures CONSULT TO URO GYNECOLOGY OFFICE/OUTPATIENT [facility] 60-74 MINUTES Jailene Kam MD [address] [place] [address] Referral ID Status Reason Start Date Expiration Date Visits Requested Visits Authorized [id number] Authorized PCP Requested Referral Auto-Generate d Referral 12/26/2022 12/26/2023 1 1 Specialty Diagnoses / Procedures Referred By Ashley t Referred To Contact [facility] Diagnoses Rectocele Cystocele, midline Procedures CONSULT TO PHYSICAL THERAPY PHYSICAL THERAPY EVALUATION HIGH COMPLEX 45 MINS Aileen Albright APRN.PLASTERING SUPERVISOR [address] [place] [address] [facility] [address] [address] Referral ID Status Reason Start Date Expiration Date Visits Requested Visits Authorized [id number] Pending Review PCP Requested Referral Auto-Generate d Referral 01/23/2023 01/23/2024 99 99 Specialty Diagnoses / Procedures Referred By Contac t Referred To Contact [facility] Diagnoses Rectocele Cystocele, midline Procedures PT REHAB FOLLOW UP ORDER THERAPEUTIC EXERCISES RE, EA 15 MIN. 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 Post-op pain SeeChristopher MD [address] [place] [address] Referral ID Status Reason Start Date Expiration Date Visits Re quested Visits Authorized [id number] Closed 1 1 Specialty Diagnoses / Procedures Referred By Ashley vance Referred To Contact [facility] Diagnoses Encounter for follow-up surveillance of breast cancer Personal history of malignant neoplasm of breast Procedures CONSULT TO LYMPHEDEMA THERAPY OFFICE/OUTPATIENT [facility] 60 MINUTES Radha Her APRN.PLASTERING SUPERVISOR [address] [place] [address] [facility] [place] [address] [place] [address] Referral ID Status Reason Start Date Expiration Date Visits Requested Visits Authorized [id number] Authorized Auto-Generat ed Referral 4 07/16/2025 99 99 Chief Complaint and Reason for Visit Chief Complaint Admit Date PEEING BLOOD December 21, 2024 11: 22pm Summary Purpose Family History No Family History Records FoundNo Family History Records FoundNo Family History Records Found Additional Source Comments Source Comments (unrecognize d section and content) In the event this informatio n is protected by the Federal Confidentiality of Alcohol and Drug Abuse Patient Records regulations: The Federal rules restrict any use of the information to criminally investigate or prosecute any alcohol or drug abuse patient.[facility] the event this information is protected by the Federal Confidentiality of Alcohol and Drug Abuse Patient Records regulations: The Federal rules restrict any use of the information to criminally investigate or prosecute any alcohol or drug abuse patient.[facility] CenterIn the event this information is protected by the Federal Confidentiality of Alcohol and Drug Abuse Patient Records regulations: The Federal rules restrict any use of the information to criminally investigate or prosecute any alcohol or drug abuse patient.[facility] CenterIn the event this information is protected by the Federal Confidentiality of Alcohol and Drug Abuse Patient Records regulations: The Federal rules restrict any use of the information to criminally investigate or prosecute any alcohol or drug abuse patient.[facility] CenterIn the event this information is protected by the Federal Confidentiality of Alcohol and Drug Abuse Patient Records regulations: The Federal rules restrict any use of the information to criminally investigate or prosecute any alcohol or drug abuse patient.[facility] CenterIn the event this information is protected by the Federal Confidentiality of Alcohol and Drug Abuse Patient Records regulations: The Federal rules restrict any use of the information to criminally investigate or prosecute any alcohol or drug abuse patient.[facility] CenterIn the event this information is protected by the Federal Confidentiality of Alcohol and Drug Abuse Patient Records regulations: The Federal rules restrict any use of the information to criminally investigate or prosecute any alcohol or drug abuse patient.[facility] CenterIn the event this information is protected by the Federal Confidentiality of Alcohol and Drug Abuse Patient Records regulations: The Federal rules restrict any use of the information to criminally investigate or prosecute any alcohol or drug abuse patient.[facility] CenterIn the event this information is protected by the Federal Confidentiality of Alcohol and Drug Abuse Patient Records regulations: The Federal rules restrict any use of the information to criminally investigate or prosecute any alcohol or drug abuse patient.[facility] CenterIn the event this information is protected by the Federal Confidentiality of Alcohol and Drug Abuse Patient Records regulations: The Federal rules restrict any use of the information to criminally investigate or prosecute any alcohol or drug abuse patient.[facility] CenterIn the event this information is protected by the Federal Confidentiality of Alcohol and Drug Abuse Patient Records regulations: The Federal rules restrict any use of the information to criminally investigate or prosecute any alcohol or drug abuse patient.[facility] CenterIn the event this information is protected by the Federal Confidentiality of Alcohol and Drug Abuse Patient Records regulations: The Federal rules restrict any use of the information to criminally investigate or prosecute any alcohol or drug abuse patient.[facility] CenterIn the event this information is protected by the Federal Confidentiality of Alcohol and Drug Abuse Patient Records regulations: The Federal rules restrict any use of the information to criminally investigate or prosecute any alcohol or drug abuse patient.[facility] CenterIn the event this information is protected by the Federal Confidentiality of Alcohol and Drug Abuse Patient Records regulations: The Federal rules restrict any use of the information to criminally investigate or prosecute any alcohol or drug abuse patient.[facility] CenterIn the event this information is protected by the Federal Confidentiality of Alcohol and Drug Abuse Patient Records regulations: The Federal rules restrict any use of the information to criminally investigate or prosecute any alcohol or drug abuse patient.[facility] CenterIn the event this information is protected by the Federal Confidentiality of Alcohol and Drug Abuse Patient Records regulations: The Federal rules restrict any use of the information to criminally investigate or prosecute any alcohol or drug abuse patient.[facility] CenterIn the event this information is protected by the Federal Confidentiality of Alcohol and Drug Abuse Patient Records regulations: The Federal rules restrict any use of the information to criminally investigate or prosecute any alcohol or drug abuse patient.[facility] CenterIn the event this information is protected by the Federal Confidentiality of Alcohol and Drug Abuse Patient Records regulations: The Federal rules restrict any use of the information to criminally investigate or prosecute any alcohol or drug abuse patient.[facility] CenterIn the event this information is protected by the Federal Confidentiality of Alcohol and Drug Abuse Patient Records regulations: The Federal rules restrict any use of the information to criminally investigate or prosecute any alcohol or drug abuse patient.[facility] CenterIn the event this information is protected by the Federal Confidentiality of Alcohol and Drug Abuse Patient Records regulations: The Federal rules restrict any use of the information to criminally investigate or prosecute any alcohol or drug abuse patient.[facility] CenterIn the event this information is protected by the Federal Confidentiality of Alcohol and Drug Abuse Patient Records regulations: The Federal rules restrict any use of the information to criminally investigate or prosecute any alcohol or drug abuse patient.[facility] CenterIn the event this information is protected by the Federal Confidentiality of Alcohol and Drug Abuse Patient Records regulations: The Federal rules restrict any use of the information to criminally investigate or prosecute any alcohol or drug abuse patient.[facility] CenterIn the event this information is protected by the Federal Confidentiality of Alcohol and Drug Abuse Patient Records regulations: The Federal rules restrict any use of the information to criminally investigate or prosecute any alcohol or drug abuse patient.[facility] CenterIn the event this information is protected by the Federal Confidentiality of Alcohol and Drug Abuse Patient Records regulations: The Federal rules restrict any use of the information to criminally investigate or prosecute any alcohol or drug abuse patient.[facility] CenterIn the event this information is protected by the Federal Confidentiality of Alcohol and Drug Abuse Patient Records regulations: The Federal rules restrict any use of the information to criminally investigate or prosecute any alcohol or drug abuse patient.[facility] CenterIn the event this information is protected by the Federal Confidentiality of Alcohol and Drug Abuse Patient Records regulations: The Federal rules restrict any use of the information to criminally investigate or prosecute any alcohol or drug abuse patient.[facility] CenterIn the event this information is protected by the Federal Confidentiality of Alcohol and Drug Abuse Patient Records regulations: The Federal rules restrict any use of the information to criminally investigate or prosecute any alcohol or drug abuse patient.[facility] CenterIn the event this information is protected by the Federal Confidentiality of Alcohol and Drug Abuse Patient Records regulations: The Federal rules restrict any use of the information to criminally investigate or prosecute any alcohol or drug abuse patient.[facility] CenterIn the event this information is protected by the Federal Confidentiality of Alcohol and Drug Abuse Patient Records regulations: The Federal rules restrict any use of the information to criminally investigate or prosecute any alcohol or drug abuse patient.[facility] CenterIn the event this information is protected by the Federal Confidentiality of Alcohol and Drug Abuse Patient Records regulations: The Federal rules restrict any use of the information to criminally investigate or prosecute any alcohol or drug abuse patient.[facility] CenterIn the event this information is protected by the Federal Confidentiality of Alcohol and Drug Abuse Patient Records regulations: The Federal rules restrict any use of the information to criminally investigate or prosecute any alcohol or drug abuse patient.[facility] CenterIn the event this information is protected by the Federal Confidentiality of Alcohol and Drug Abuse Patient Records regulations: The Federal rules restrict any use of the information to criminally investigate or prosecute any alcohol or drug abuse patient.[facility] CenterIn the event this information is protected by the Federal Confidentiality of Alcohol and Drug Abuse Patient Records regulations: The Federal rules restrict any use of the information to criminally investigate or prosecute any alcohol or drug abuse patient.[facility] CenterIn the event this information is protected by the Federal Confidentiality of Alcohol and Drug Abuse Patient Records regulations: The Federal rules restrict any use of the information to criminally investigate or prosecute any alcohol or drug abuse patient.[facility] CenterIn the event this information is protected by the Federal Confidentiality of Alcohol and Drug Abuse Patient Records regulations: The Federal rules restrict any use of the information to criminally investigate or prosecute any alcohol or drug abuse patient.[facility] CenterIn the event this information is protected by the Federal Confidentiality of Alcohol and Drug Abuse Patient Records regulations: The Federal rules restrict any use of the information to criminally investigate or prosecute any alcohol or drug abuse patient.[facility] CenterIn the event this information is protected by the Federal Confidentiality of Alcohol and Drug Abuse Patient Records regulations: The Federal rules restrict any use of the information to criminally investigate or prosecute any alcohol or drug abuse patient.[facility] CenterIn the event this information is protected by the Federal Confidentiality of Alcohol and Drug Abuse Patient Records regulations: The Federal rules restrict any use of the information to criminally investigate or prosecute any alcohol or drug abuse patient.[facility] CenterIn the event this information is protected by the Federal Confidentiality of Alcohol and Drug Abuse Patient Records regulations: The Federal rules restrict any use of the information to criminally investigate or prosecute any alcohol or drug abuse patient.[facility] CenterIn the event this information is protected by the Federal Confidentiality of Alcohol and Drug Abuse Patient Records regulations: The Federal rules restrict any use of the information to criminally investigate or prosecute any alcohol or drug abuse patient.[facility] CenterIn the event this information is protected by the Federal Confidentiality of Alcohol and Drug Abuse Patient Records regulations: The Federal rules restrict any use of the information to criminally investigate or prosecute any alcohol or drug abuse patient.[facility] CenterIn the event this information is protected by the Federal Confidentiality of Alcohol and Drug Abuse Patient Records regulations: The Federal rules restrict any use of the information to criminally investigate or prosecute any alcohol or drug abuse patient.[facility] CenterIn the event this information is protected by the Federal Confidentiality of Alcohol and Drug Abuse Patient Records regulations: The Federal rules restrict any use of the information to criminally investigate or prosecute any alcohol or drug abuse patient.[facility] CenterIn the event this information is protected by the Federal Confidentiality of Alcohol and Drug Abuse Patient Records regulations: The Federal rules restrict any use of the information to criminally investigate or prosecute any alcohol or drug abuse patient.[facility] CenterIn the event this information is protected by the Federal Confidentiality of Alcohol and Drug Abuse Patient Records regulations: The Federal rules restrict any use of the information to criminally investigate or prosecute any alcohol or drug abuse patient.[facility] CenterIn the event this information is protected by the Federal Confidentiality of Alcohol and Drug Abuse Patient Records regulations: The Federal rules restrict any use of the information to criminally investigate or prosecute any alcohol or drug abuse patient.[facility] CenterIn the event this information is protected by the Federal Confidentiality of Alcohol and Drug Abuse Patient Records regulations: The Federal rules restrict any use of the information to criminally investigate or prosecute any alcohol or drug abuse patient.[facility] CenterIn the event this information is protected by the Federal Confidentiality of Alcohol and Drug Abuse Patient Records regulations: The Federal rules restrict any use of the information to criminally investigate or prosecute any alcohol or drug abuse patient.[facility] CenterIn the event this information is protected by the Federal Confidentiality of Alcohol and Drug Abuse Patient Records regulations: The Federal rules restrict any use of the information to criminally investigate or prosecute any alcohol or drug abuse patient.[facility] CenterIn the event this information is protected by the Federal Confidentiality of Alcohol and Drug Abuse Patient Records regulations: The Federal rules restrict any use of the information to criminally investigate or prosecute any alcohol or drug abuse patient.[facility] CenterIn the event this information is protected by the Federal Confidentiality of Alcohol and Drug Abuse Patient Records regulations: The Federal rules restrict any use of the information to criminally investigate or prosecute any alcohol or drug abuse patient.[facility] CenterIn the event this information is protected by the Federal Confidentiality of Alcohol and Drug Abuse Patient Records regulations: The Federal rules restrict any use of the information to criminally investigate or prosecute any alcohol or drug abuse patient.[facility] CenterIn the event this information is protected by the Federal Confidentiality of Alcohol and Drug Abuse Patient Records regulations: The Federal rules restrict any use of the information to criminally investigate or prosecute any alcohol or drug abuse patient.[facility] CenterIn the event this information is protected by the Federal Confidentiality of Alcohol and Drug Abuse Patient Records regulations: The Federal rules restrict any use of the information to criminally investigate or prosecute any alcohol or drug abuse patient.[facility] CenterIn the event this information is protected by the Federal Confidentiality of Alcohol and Drug Abuse Patient Records regulations: The Federal rules restrict any use of the information to criminally investigate or prosecute any alcohol or drug abuse patient.[facility] CenterIn the event this information is protected by the Federal Confidentiality of Alcohol and Drug Abuse Patient Records regulations: The Federal rules restrict any use of the information to criminally investigate or prosecute any alcohol or drug abuse patient.[facility] CenterIn the event this information is protected by the Federal Confidentiality of Alcohol and Drug Abuse Patient Records regulations: The Federal rules restrict any use of the information to criminally investigate or prosecute any alcohol or drug abuse patient.[facility] CenterIn the event this information is protected by the Federal Confidentiality of Alcohol and Drug Abuse Patient Records regulations: The Federal rules restrict any use of the information to criminally investigate or prosecute any alcohol or drug abuse patient.[facility] CenterIn the event this information is protected by the Federal Confidentiality of Alcohol and Drug Abuse Patient Records regulations: The Federal rules restrict any use of the information to criminally investigate or prosecute any alcohol or drug abuse patient.[facility] CenterIn the event this information is protected by the Federal Confidentiality of Alcohol and Drug Abuse Patient Records regulations: The Federal rules restrict any use of the information to criminally investigate or prosecute any alcohol or drug abuse patient.[facility] CenterIn the event this information is protected by the Federal Confidentiality of Alcohol and Drug Abuse Patient Records regulations: The Federal rules restrict any use of the information to criminally investigate or prosecute any alcohol or drug abuse patient.[facility] CenterIn the event this information is protected by the Federal Confidentiality of Alcohol and Drug Abuse Patient Records regulations: The Federal rules restrict any use of the information to criminally investigate or prosecute any alcohol or drug abuse patient.[facility] CenterIn the event this information is protected by the Federal Confidentiality of Alcohol and Drug Abuse Patient Records regulations: The Federal rules restrict any use of the information to criminally investigate or prosecute any alcohol or drug abuse patient.[facility] CenterIn the event this information is protected by the Federal Confidentiality of Alcohol and Drug Abuse Patient Records regulations: The Federal rules restrict any use of the information to criminally investigate or prosecute any alcohol or drug abuse patient.[facility] CenterIn the event this information is protected by the Federal Confidentiality of Alcohol and Drug Abuse Patient Records regulations: The Federal rules restrict any use of the information to criminally investigate or prosecute any alcohol or drug abuse patient.[facility] CenterIn the event this information is protected by the Federal Confidentiality of Alcohol and Drug Abuse Patient Records regulations: The Federal rules restrict any use of the information to criminally investigate or prosecute any alcohol or drug abuse patient.[facility] CenterIn the event this information is protected by the Federal Confidentiality of Alcohol and Drug Abuse Patient Records regulations: The Federal rules restrict any use of the information to criminally investigate or prosecute any alcohol or drug abuse patient.[facility] CenterIn the event this information is protected by the Federal Confidentiality of Alcohol and Drug Abuse Patient Records regulations: The Federal rules restrict any use of the information to criminally investigate or prosecute any alcohol or drug abuse patient.[facility] CenterIn the event this information is protected by the Federal Confidentiality of Alcohol and Drug Abuse Patient Records regulations: The Federal rules restrict any use of the information to criminally investigate or prosecute any alcohol or drug abuse patient.[facility] CenterIn the event this information is protected by the Federal Confidentiality of Alcohol and Drug Abuse Patient Records regulations: The Federal rules restrict any use of the information to criminally investigate or prosecute any alcohol or drug abuse patient.[facility] CenterIn the event this information is protected by the Federal Confidentiality of Alcohol and Drug Abuse Patient Records regulations: The Federal rules restrict any use of the information to criminally investigate or prosecute any alcohol or drug abuse patient.[facility] CenterIn the event this information is protected by the Federal Confidentiality of Alcohol and Drug Abuse Patient Records regulations: The Federal rules restrict any use of the information to criminally investigate or prosecute any alcohol or drug abuse patient.[facility] CenterIn the event this information is protected by the Federal Confidentiality of Alcohol and Drug Abuse Patient Records regulations: The Federal rules restrict any use of the information to criminally investigate or prosecute any alcohol or drug abuse patient.[facility] CenterIn the event this information is protected by the Federal Confidentiality of Alcohol and Drug Abuse Patient Records regulations: The Federal rules restrict any use of the information to criminally investigate or prosecute any alcohol or drug abuse patient.[facility] CenterIn the event this information is protected by the Federal Confidentiality of Alcohol and Drug Abuse Patient Records regulations: The Federal rules restrict any use of the information to criminally investigate or prosecute any alcohol or drug abuse patient.[facility] CenterIn the event this information is protected by the Federal Confidentiality of Alcohol and Drug Abuse Patient Records regulations: The Federal rules restrict any use of the information to criminally investigate or prosecute any alcohol or drug abuse patient.[facility] CenterIn the event this information is protected by the Federal Confidentiality of Alcohol and Drug Abuse Patient Records regulations: The Federal rules restrict any use of the information to criminally investigate or prosecute any alcohol or drug abuse patient.[facility] CenterIn the event this information is protected by the Federal Confidentiality of Alcohol and Drug Abuse Patient Records regulations: The Federal rules restrict any use of the information to criminally investigate or prosecute any alcohol or drug abuse patient.[facility] CenterIn the event this information is protected by the Federal Confidentiality of Alcohol and Drug Abuse Patient Records regulations: The Federal rules restrict any use of the information to criminally investigate or prosecute any alcohol or drug abuse patient.[facility] CenterIn the event this information is protected by the Federal Confidentiality of Alcohol and Drug Abuse Patient Records regulations: The Federal rules restrict any use of the information to criminally investigate or prosecute any alcohol or drug abuse patient.[facility] CenterIn the event this information is protected by the Federal Confidentiality of Alcohol and Drug Abuse Patient Records regulations: The Federal rules restrict any use of the information to criminally investigate or prosecute any alcohol or drug abuse patient.[facility] CenterIn the event this information is protected by the Federal Confidentiality of Alcohol and Drug Abuse Patient Records regulations: The Federal rules restrict any use of the information to criminally investigate or prosecute any alcohol or drug abuse patient.[facility] CenterIn the event this information is protected by the Federal Confidentiality of Alcohol and Drug Abuse Patient Records regulations: The Federal rules restrict any use of the information to criminally investigate or prosecute any alcohol or drug abuse patient.[facility] CenterIn the event this information is protected by the Federal Confidentiality of Alcohol and Drug Abuse Patient Records regulations: The Federal rules restrict any use of the information to criminally investigate or prosecute any alcohol or drug abuse patient.[facility] CenterIn the event this information is protected by the Federal Confidentiality of Alcohol and Drug Abuse Patient Records regulations: The Federal rules restrict any use of the information to criminally investigate or prosecute any alcohol or drug abuse patient.[facility] CenterIn the event this information is protected by the Federal Confidentiality of Alcohol and Drug Abuse Patient Records regulations: The Federal rules restrict any use of the information to criminally investigate or prosecute any alcohol or drug abuse patient.[facility] CenterIn the event this information is protected by the Federal Confidentiality of Alcohol and Drug Abuse Patient Records regulations: The Federal rules restrict any use of the information to criminally investigate or prosecute any alcohol or drug abuse patient.[facility] CenterIn the event this information is protected by the Federal Confidentiality of Alcohol and Drug Abuse Patient Records regulations: The Federal rules restrict any use of the information to criminally investigate or prosecute any alcohol or drug abuse patient.[facility] Care Teams (unrecognized sec tion and content) [employer] Machinist Relationship Specialty Start Date End Date Abhishek Huynh MD [address] [place], [place] [address] PCP - General Family Practice 05/29/19 Andre Hardy, HUE [address] [place] [address] Specialty Hat Braider Hematology/Oncology 09/25/18 [place] [address] [place], [place] [id number] Physician Hematology/Oncology 09/25/18 [employer] Machinist Relationship Specialty Start Date End Date Abhishek Huynh MD [address], [place] [id number] PCP - General Family Practice 05/29/19 Andre Hardy, HUE [address] [place] [address] Specialty Hat Braider Hematology/Oncology 09/25/18 [place] [address] [place] [address] Physician Hematology/Oncology 09/25/18 [employer] Pump Machinist Relationship Specialty Start Date End Date Abhishek Huynh MD [address] [place] [address] PCP - General Family Practice 05/29/19 Andre Hardy RN [address] [place] [address] Specialty Hat Braider Hematology/Oncology 09/25/18 [place] [address] [place] [address] Physician Hematology/Oncology 09/25/18 [employer] Pump Machinist Relationship Specialty Start Date End Date Abhishek Huynh MD [address] [place] [address] PCP - General Family Practice 05/29/19 [place] [address] [place] [address] Specialty Hat Braider Hematology/Oncology 09/25/18 [place] [address] [place] [address] Physician Hematology/Oncology 09/25/18 [employer] Pump Machinist Relationship Specialty Start Date End Date Abhishek Huynh MD [address] [place] [address] PCP - General Family Medicine 05/29/19 [place] [address] [place] [address] Specialty Hat Braider Hematology/Oncology 09/25/18 [place] [address] [place] [address] Physician Hematology/Oncology 09/25/18 [employer] Pump Machinist Relationship Specialty Start Date End Date Abhishek Huynh MD [address] [place] [address] PCP - General Family Medicine 05/29/19 [place] [address] [place] [address] Specialty Hat Braider Hematology/Oncology 09/25/18 [place] [address] [place] [address] Physician Hematology/Oncology 09/25/18 [employer] Pump Machinist Relationship Specialty Start Date End Date Abhishek Huynh MD [address] [place] [address] PCP - General Family Medicine 05/29/19 [place] [address] [place] [address] Specialty Hat Braider Hematology/Oncology 09/25/18 [place] [address] [place] [address] Physician Hematology/Oncology 09/25/18 [employer] Heat Pump Machinist Relationship Specialty Start Date End Date Abhishek Huynh MD [address] [place] [address] PCP - General Family Medicine 05/29/19 [place] [address] [place] [address] Specialty Hat Braider Hematology/Oncology 09/25/18 [place] [address] [place] [address] Physician Hematology/Oncology 09/25/18 [employer] Heat Pump Machinist Relationship Specialty Start Date End Date Abhishek Huynh MD [address] [place] [address] PCP - General Family Medicine 05/29/19 [place] [address] [place] [address] Specialty Hat Braider Hematology/Oncology 09/25/18 [place] [address] [place] [address] Physician Hematology/Oncology 09/25/18 [employer] Heat Pump Machinist Relationship Specialty Start Date End Date Abhishek Huynh MD [address] [place] [address] PCP - General Family Medicine 05/29/19 Andre Hardy, HUE [id number] [place] [address] Specialty Hat Braider Hematology/Oncology 09/25/18 [place] [address] [place] [address] Physician Hematology/Oncology 09/25/18 [employer] Heat Pump Machinist Relationship Specialty Start Date End Date Abhishek Huynh MD [address] [place] [address] PCP - General Family Medicine 05/29/19 Andre Hardy, HUE [address] [place] [address] Specialty Hat Braider Hematology/Oncology 09/25/18 [place] [address] [place] [address] Physician Hematology/Oncology 09/25/18 Ge[employer] Heat Pump Machinist Relationship Specialty Start Date End Date Abhishek Huynh MD [address] [place] [address] PCP - General Family Medicine 05/29/19 Andre Hardy, HUE [address] [place] [address] Specialty Hat Braider Hematology/Oncology 09/25/18 [place] [address] [place] [address] Physician Hematology/Oncology 09/25/18 Geothermal Heat Pump Machinist Relationship Specialty Start Date End Date Abhishek Huynh MD [address] [place] [address] PCP - General Family Medicine 05/29/19 Andre Hardy RN [address] [place] [address] Specialty Hat Braider Hematology/Oncology 09/25/18 Lana Mccann MD [address] [place] [address] Physician Hematology/Oncology 09/25/18 [employer] Heat Pump Machinist Relationship Specialty Start Date End Date Abhishek Huynh MD [address] [place] [address] PCP - General Family Medicine 05/29/19 [place] [address] [place] [address] Specialty Hat Braider Hematology/Oncology 09/25/18 [place] [address] [place] [address] Physician Hematology/Oncology 09/25/18 Geothermal Heat Pump Machinist Relationship Specialty Start Date End Date Abhishek Huynh MD [address] [place] [address] PCP - General Family Medicine 05/29/19 Andre Hardy RN [address] [place] [address] Specialty Hat Braider Hematology/Oncology 09/25/18 [place] [address] [place] [address] Physician Hematology/Oncology 09/25/18 [employer] Heat Pump Machinist Relationship Specialty Start Date End Date Abhishek Huynh MD [address] [place], [place] 222701 PCP - General Family Medicine 05/29/19 Andre Hardy, HUE [address] [place] [address] Specialty Hat Braider Hematology/Oncology 09/25/18 [place] [address] [place] [address] Physician Hematology/Oncology 09/25/18 Ge[employer] Heat Pump Machinist Relationship Specialty Start Date End Date Abhishek Huynh MD [address] [place] [address] PCP - General Family Medicine 05/29/19 [place] [address] [place] [address] Specialty Hat Braider Hematology/Oncology 09/25/18 [place] [address] [place] [address] Physician Hematology/Oncology 09/25/18 Geothermal Heat Pump Machinist Relationship Specialty Start Date End Date Abhishek Huynh MD [address] [place] [address] PCP - General Family Medicine 05/29/19 Andre Hardy, HUE [address] [place] [address] Specialty Hat Braider Hematology/Oncology 09/25/18 [place] [address] [place] [address] Physician Hematology/Oncology 09/25/18 Geothermal Heat Pump Machinist Relationship Specialty Start Date End Date Abhishek Huynh MD [address] [place], [place] [id number] PCP - General Family Medicine 05/29/19 Andre Hardy, HUE [address] [place] [address] Specialty Hat Braider Hematology/Oncology 09/25/18 Lana Mccann MD [address] [place] [address] Physician Hematology/Oncology 09/25/18 Geothermal Heat Pump Machinist Relationship Specialty Start Date End Date Abhishek Huynh MD [address] [place] [address] PCP - General Family Medicine 05/29/19 [place] [address] [place] [address] Specialty Hat Braider Hematology/Oncology 09/25/18 Lana Mccann MD [address] [place] [address] Physician Hematology/Oncology 09/25/18 Ge[employer] Heat Pump Machinist Relationship Specialty Start Date End Date Abhishek Huynh MD [address] [place], [place] 255461 PCP - General Family Medicine 05/29/19 [place] [address] [place] [address] Specialty Hat Braider Hematology/Oncology 09/25/18 Lana Mccann MD [address] [place] [address] Physician Hematology/Oncology 09/25/18 Ge[employer] Heat Pump Machinist Relationship Specialty Start Date End Date Abhishek Huynh MD [address] [place], [place] 631051 PCP - General Family Medicine 05/29/19 Andre Hardy, HUE [address] [place] [address] Specialty Hat Braider Hematology/Oncology 09/25/18 [place] [address] [place] [address] Physician Hematology/Oncology 09/25/18 Geothermal Heat Pump Machinist Relationship Specialty Start Date End Date Abhishek Huynh MD [address] [facility] [place] [address] PCP - General Family Medicine 05/29/19 [place] [address] [place] [address] Specialty Hat Braider Hematology/Oncology 09/25/18 [place] [address] [place] [address] Physician Hematology/Oncology 09/25/18 Geothermal Heat Pump Machinist Relationship Specialty Start Date End Date Abhishek Huynh MD [address] [facility] [place] [address] PCP - General Family Medicine 05/29/19 Andre Hardy, HEU [address] [place] [address] Specialty Hat Braider Hematology/Oncology 09/25/18 [place] [address] [place] [address] Physician Hematology/Oncology 09/25/18 Geothermal Heat Pump Machinist Relationship Specialty Start Date End Date Abhishek Huynh MD [address] [facility] [place] [address] PCP - General Family Medicine 05/29/19 Andre Hardy, HUE [address] [place] [address] Specialty Hat Braider Hematology/Oncology 09/25/18 [place] [address] [place], [place] 9422106 Physician Hematology/Oncology 09/25/18 Geothermal Heat Pump Machinist Relationship Specialty Start Date End Date Abhishek Huynh MD [address] [place] [address] PCP - General Family Medicine 05/29/19 [place] [address] [place] [address] Specialty Hat Braider Hematology/Oncology 09/25/18 Lana Mccann MD [address] [place] [address] Physician Hematology/Oncology 09/25/18 Geothermal Heat Pump Machinist Relationship Specialty Start Date End Date Abhishek Huynh MD [address] [place] [address] PCP - General Family Medicine 05/29/19 [place] [address] [place] [address] Specialty Hat Braider Hematology/Oncology 09/25/18 Lana Mccann MD [address] [place] [address] Physician Hematology/Oncology 09/25/18 Geothermal Heat Pump Machinist Relationship Specialty Start Date End Date Abhishek Huynh MD [address] [place] [address] PCP - General Family Medicine 05/29/19 [place] [address] [place] [address] Specialty Hat Braider Hematology/Oncology 09/25/18 Lana Mccann MD [address] [place] [address] Physician Hematology/Oncology 09/25/18 Geothermal Heat Pump Machinist Relationship Specialty Start Date End Date Abhishek Huynh MD [address] [facility] [place] [address] PCP - General Family Medicine 05/29/19 Andre Hardy, HUE [address] [place] [address] Specialty Hat Braider Hematology/Oncology 09/25/18 [place] [address] [place] [address] Physician Hematology/Oncology 09/25/18 Ge[employer] Heat Pump Machinist Relationship Specialty Start Date End Date Abhishek Huynh MD [address] [place] [address] PCP - General Family Medicine 05/29/19 [place] [address] [place] [address] Specialty Hat Braider Hematology/Oncology 09/25/18 [place] [address] [place] [address] Physician Hematology/Oncology 09/25/18 Geothermal Heat Pump Machinist Relationship Specialty Start Date End Date Abhishek Huynh MD [address] [place] [address] PCP - General Family Medicine 05/29/19 [place] [address] [place] [address] Specialty Hat Braider Hematology/Oncology 09/25/18 [place] [address] [place] [address] Physician Hematology/Oncology 09/25/18 Geothermal Heat Pump Machinist Relationship Specialty Start Date End Date Abhishek Huynh MD [address] [place] [address] PCP - General Family Medicine 05/29/19 [place] [address] [place] [address] Specialty Hat Braider Hematology/Oncology 09/25/18 Lana Mccann MD [address] [place] [address] Physician Hematology/Oncology 09/25/18 Geothermal Heat Pump Machinist Relationship Specialty Start Date End Date Abhishek Huynh MD [address] [place] [address] PCP - General Family Medicine 05/29/19 [place] [address] [place] [address] Specialty Hat Braider Hematology/Oncology 09/25/18 Lana Mccann MD [address] [place] [address] Physician Hematology/Oncology 09/25/18 Geothermal Heat Pump Machinist Relationship Specialty Start Date End Date Abhishek Huynh MD [address] [place], [place] [address]331 PCP - General Family Medicine 05/29/19 [place] [address] [place] [address] Specialty Hat Braider Hematology/Oncology 09/25/18 Lana Mccann MD [address] [place] [address] Physician Hematology/Oncology 09/25/18 Geothermal Heat Pump Machinist Relationship Specialty Start Date End Date Abhishek Huynh MD [address] [place], [place] 573321 PCP - General Family Medicine 05/29/19 [place] [address] [place] [address] Specialty Hat Braider Hematology/Oncology 09/25/18 [place] [address] [place] [address] Physician Hematology/Oncology 09/25/18 Geothermal Heat Pump Machinist Relationship Specialty Start Date End Date Abhishek Huynh MD [address] [facility], [place] [address] PCP - General Family Medicine 05/29/19 [place] [address] [place] [address] Specialty Hat Braider Hematology/Oncology 09/25/18 [place] [address] [place] [address] Physician Hematology/Oncology 09/25/18 Geothermal Heat Pump Machinist Relationship Specialty Start Date End Date Abhishek Huynh MD [address] [place] [address] PCP - General Family Medicine 05/29/19 [place] [address] [place] [address] Specialty Hat Braider Hematology/Oncology 09/25/18 [place] [address] [place] [address] Physician Hematology/Oncology 09/25/18 Geothermal Heat Pump Machinist Relationship Specialty Start Date End Date Abhishek Huynh MD [address] [facility], [place] [address] PCP - General Family Medicine 05/29/19 [place] [address] [place] [address] Specialty Hat Braider Hematology/Oncology 09/25/18 [place] [address] [place] [address] Physician Hematology/Oncology 09/25/18 Geothermal Heat Pump Machinist Relationship Specialty Start Date End Date Abhishek Huynh MD [address] [facility], [place] [address] PCP - General Family Medicine 05/29/19 [place] [address] [place] [address] Specialty Hat Braider Hematology/Oncology 09/25/18 [place] [address] [place] [address] Physician Hematology/Oncology 09/25/18 Geothermal Heat Pump Machinist Relationship Specialty Start Date End Date Abhishek Huynh MD [address] [place] [address] PCP - General Family Medicine 05/29/19 Andre Hardy, HUE [address] [place] [address] Specialty Hat Braider Hematology/Oncology 09/25/18 [place] [address] [place] [address] Physician Hematology/Oncology 09/25/18 Ivette Diaz, FUR FINISHER.PLASTERING SUPERVISOR [address] [facility] [place] [address] Ortho Rn Family Medicine 09/07/24 Kim Browning, FUR FINISHER.PLASTERING SUPERVISOR [address] [facility] [address] Ortho Rn Family Medicine 09/07/24 Geothermal Heat Pump Machinist Relationship Specialty Start Date End Date Abhishek Huynh MD [address] [facility], [place] [address] PCP - General Family Medicine 05/29/19 Andre Hardy, HUE [address] [place] [address] Specialty Hat Braider Hematology/Oncology 09/25/18 [place] [address] [place] [address] Physician Hematology/Oncology 09/25/18 Ivette Diaz APRN.PLASTERING SUPERVISOR [address] [facility] [place] [address] Ortho Rn Family Medicine 09/07/24 Kim Browning APRN.PLASTERING SUPERVISOR [address] [place] [address] Ortho Rn Family Medicine 09/07/24 Geothermal Heat Pump Machinist Relationship Specialty Start Date End Date Abhishek Huynh MD [address] [facility] [place] [place] [address] PCP - General Family Medicine 05/29/19 [place] [address] [place] [address] Specialty Hat Braider Hematology/Oncology 09/25/18 [place] [address] [place] [address] Physician Hematology/Oncology 09/25/18 Ivette Diaz APRN.PLASTERING SUPERVISOR [address] [facility] [place] [address] Ortho Rn Family Medicine 09/07/24 Kim Browning APRN.PLASTERING SUPERVISOR [address] [place] [address] Ortho Rn Family Medicine 09/07/24 Team Status: Active Member Role Status Dates Dr. Abhishek Huynh MD Primary Care Provider Active Team Status: Inactive Member Role Status Dates Dr. Abhishek Huynh MD Primary Care Provider Active Start: December 21, 2024 End: December 22, 2024 Dr. Srinivasa Cruz DO Emergency Provider Active Start: December 21, 2024 End: December 22, 2024 Team Status: Inactive Member Role Status Dates Dr. Abhishek Huynh MD Primary Care Provider Active Start: December 21, 2024 End: December 22, 2024 Dr. Srinivasa Cruz DO Attending Provider Active Start: December 21, 2024 End: December 22, 2024 Dr. Srinivasa Cruz DO Emergency Provider Active Start: December 21, 2024 End: December 22, 2024 Team Status: Inactive Member Role Status Dates Dr. Abhishek Huynh MD Primary Care Provider Active Start: December 28, 2024 End: December 28, 2024 Dr. Dee Mondragon MD Attending Provider Active Start: December 28, 2024 End: December 28, 2024 Geothermal Heat Pump Machinist Relationship Specialty Start Date End Date Abhishek Huynh MD [address] [place] [address] PCP - General Family Medicine 05/29/19 Andre Hardy, HUE [address] [place] [address] Specialty Hat Braider Hematology/Oncology 09/25/18 [place] [address] [place] [address] Physician Hematology/Oncology 09/25/18 Ivette Diaz APRN.PLASTERING SUPERVISOR [address] [facility] [place] [address] Ortho Rn Family Medicine 09/07/24 Kim Browning APRN.PLASTERING SUPERVISOR [address] [place], [place] [address] Ortho Rn Family Medicine 09/07/24 Geothermal Heat Pump Machinist Relationship Specialty Start Date End Date Abhishek Huynh MD [address] [facility] [place] [place] [address] PCP - General Family Medicine 05/29/19 Andre Hardy, HUE [address] [place] [address] Specialty Hat Braider Hematology/Oncology 09/25/18 [place] [address] [place] [address] Physician Hematology/Oncology 09/25/18 Ivette Diaz APRN.PLASTERING SUPERVISOR [address] [place] [address] Ortho Rn Family Medicine 09/07/24 Kim Browning APRN.PLASTERING SUPERVISOR [address] [place] [address] Ortho Rn Family Medicine 09/07/24 Geothermal Heat Pump Machinist Relationship Specialty Start Date End Date Abhishek Huynh MD [address] [place] [address] PCP - General Family Medicine 05/29/19 Andre Hardy, HUE [address] [place] [address] Specialty Hat Braider Hematology/Oncology 09/25/18 [place] [address] [place] [address] Physician Hematology/Oncology 09/25/18 Ivette Diaz APRN.PLASTERING SUPERVISOR [address] [facility] [place] [address] Ortho Rn Family Medicine 09/07/24 Kim Browning FUR FINISHER.PLASTERING SUPERVISOR [address] [place] [address] Ortho Rn Family Medicine 09/07/24 Geothermal Heat Pump Machinist Relationship Specialty Start Date End Date Abhishek Huynh MD [address] [place] [address] PCP - General Family Medicine 05/29/19 [place] [address] [place] [address] Specialty Hat Braider Hematology/Oncology 09/25/18 [place] [address] [place] [address] Physician Hematology/Oncology 09/25/18 Ivette Diaz, FUR FINISHER.PLASTERING SUPERVISOR [address] [place] [address] Ortho Rn Family Medicine 09/07/24 Kim Browning, FUR FINISHER.PLASTERING SUPERVISOR [address] [place] [address] Ortho Rn Family Medicine 09/07/24 Geothermal Heat Pump Machinist Relationship Specialty Start Date End Date Abhishek Huynh MD [address] [place] [address] PCP - General Family Medicine 05/29/19 Andre Hardy, HUE [address] [place] [address] Specialty Hat Braider Hematology/Oncology 09/25/18 [place] [address] [place] [address] Physician Hematology/Oncology 09/25/18 Ivette Diaz, FUR FINISHER.PLASTERING SUPERVISOR [address] [place] [address] Ortho Rn Family Medicine 09/07/24 Kim Browning FUR FINISHER.PLASTERING SUPERVISOR [address] [facility] [place] [address] [facility] 09/07/24 Geothermal Heat Pump Machinist Relationship Specialty Start Date End Date Abhishek Huynh MD [address] [facility] [place] [address] PCP - General Family Medicine 05/29/19 [place] [address] [place] [address] Specialty Hat Braider Hematology/Oncology 09/25/18 [place] [address] [place] [address] Physician Hematology/Oncology 09/25/18 Ivette Diaz, NARDA.PLASTERING SUPERVISOR [address] [facility] [place] [address] [facility] 09/07/24 Kim Browning FUR FINISHER.PLASTERING SUPERVISOR [address] [facility] [place] [address] [facility] 09/07/24 Geothermal Heat Pump Machinist Relationship Specialty Start Date End Date Abhishek Huynh MD [address] [facility] [place] [place] [address] PCP - General Family Medicine 05/29/19 Andre Hardy, HUE [address] [place] [address] Specialty Hat Braider Hematology/Oncology 09/25/18 [place] [address] [place] [address] Physician Hematology/Oncology 09/25/18 Ivette Diaz, FUR FINISHER.PLASTERING SUPERVISOR [address] [facility] [place] [address] Ortho Rn Family Medicine 09/07/24 Kim Browning, FUR FINISHER.PLASTERING SUPERVISOR [address] [place] [address] Ortho Rn Family Medicine 09/07/24 Geothermal Heat Pump Machinist Relationship Specialty Start Date End Date Abhishek Huynh MD [address] [facility] [place] [address] PCP - General Family Medicine 05/29/19 [place] [address] [place] [address] Specialty Hat Braider Hematology/Oncology 09/25/18 Lana Mccann MD [address] [place] [address] Physician Hematology/Oncology 09/25/18 Ivette Diaz, FUR FINISHER.PLASTERING SUPERVISOR [address] [facility] [place] [address] [facility] 09/07/24 Kim Browning, FUR FINISHER.PLASTERING SUPERVISOR [address] [facility] [place] [address] [facility] 09/07/24 Geothermal Heat Pump Machinist Relationship Specialty Start Date End Date Abhishek Huynh MD [address] [facility] [place] [address] PCP - General Family Medicine 05/29/19 Andre Hardy, HUE [address] [place] [address] Specialty Hat Braider Hematology/Oncology 09/25/18 [place] [address] [place] [address] Physician Hematology/Oncology 09/25/18 Ivette Diaz, FUR FINISHER.PLASTERING SUPERVISOR [address] [facility] [place] [address] Ortho Rn Family Medicine 09/07/24 Kim Browning FUR FINISHER.PLASTERING SUPERVISOR [address] [facility] [place] [address] Ortho Rn Family Medicine 09/07/24 Geothermal Heat Pump Machinist Relationship Specialty Start Date End Date Abhishek Huynh MD [address] [facility] [place] [address] PCP - General Family Medicine 05/29/19 [place] [address] [place] [address] Specialty Hat Braider Hematology/Oncology 09/25/18 [place] [address] [place] [address] Physician Hematology/Oncology 09/25/18 Ivette Diaz, FUR FINISHER.PLASTERING SUPERVISOR [address] [facility] [place] [address] Ortho Rn Family Medicine 09/07/24 Kim Browning, FUR FINISHER.PLASTERING SUPERVISOR [address] [facility] [place] [address] Ortho Rn Family Medicine 09/07/24 Geothermal Heat Pump Machinist Relationship Specialty Start Date End Date Abhishek Huynh MD [address] [facility] [place] [address] PCP - General Family Medicine 05/29/19 Andre Hardy, HUE [address] [place] [address] Specialty Hat Braider Hematology/Oncology 09/25/18 [place] [address] [place] [address] Physician Hematology/Oncology 09/25/18 Ivette Diaz APRN.PLASTERING SUPERVISOR [address] [facility] [place] [address] Ortho Rn Family Medicine 09/07/24 Kim Browning FUR FINISHER.PLASTERING SUPERVISOR [address] [facility] [place] [address] Ortho Rn Family Medicine 09/07/24 Geothermal Heat Pump Machinist Relationship Specialty Start Date End Date Abhishek Huynh MD [address] [facility] [place] [address] PCP - General Family Medicine 05/29/19 Andre Hardy, HUE [address] [place] [address] Specialty Hat Braider Hematology/Oncology 09/25/18 [place] [address] [place] [address] Physician Hematology/Oncology 09/25/18 Ivette Diaz APRN.PLASTERING SUPERVISOR [address] [facility] [place] [address] Ortho Rn Family Medicine 09/07/24 Kim Browning APRN.PLASTERING SUPERVISOR [address] [facility] [place] [address] Ortho Rn Family Medicine 09/07/24 Geothermal Heat Pump Machinist Relationship Specialty Start Date End Date Abhishek Huynh MD [address] [facility] [place] [address] PCP - General Family Medicine 05/29/19 Andre Hardy, HUE [address] [place] [address] Specialty Hat Braider Hematology/Oncology 09/25/18 [place] [address] [place] [address] Physician Hematology/Oncology 09/25/18 Ivette Diaz, FUR FINISHER.PLASTERING SUPERVISOR [address] [facility] [place] [address] Ortho Rn Family Medicine 09/07/24 Kim Browning FUR FINISHER.PLASTERING SUPERVISOR [address] [facility] [place] [address] Ortho Rn Family Medicine 09/07/24 Geothermal Heat Pump Machinist Relationship Specialty Start Date End Date Abhishek Huynh MD [address] [facility] [place] [address] PCP - General Family Medicine 05/29/19 Andre Hardy, HUE [address] [place] [address] Specialty Hat Braider Hematology/Oncology 09/25/18 [place] [address] [place] [address] Physician Hematology/Oncology 09/25/18 Ivette Diaz FUR FINISHER.PLASTERING SUPERVISOR [address] [facility] [place] [address] Ortho Rn Family Medicine 09/07/24 Kim Browning FUR FINISHER.PLASTERING SUPERVISOR [address] [place] [address] Ortho Rn Family Medicine 09/07/24 Geothermal Heat Pump Machinist Relationship Specialty Start Date End Date Abhishek Huynh MD [address] [facility] [place] [address] PCP - General Family Medicine 05/29/19 Andre Hardy, HUE [address] [place] [address] Specialty Hat Braider Hematology/Oncology 09/25/18 [place] [address] [place] [address] Physician Hematology/Oncology 09/25/18 Ivette Diaz APRN.PLASTERING SUPERVISOR [address] [facility] [place] [address] Ortho Rn Family Medicine 09/07/24 Kim Browning APRN.PLASTERING SUPERVISOR [address] [facility] [place] [address] [facility] 09/07/24 Geothermal Heat Pump Machinist Relationship Specialty Start Date End Date Abhishek Huynh MD [address] [facility] [place] [address] PCP - General Family Medicine 05/29/19 Andre Hardy, HUE [address] [place] [address] Specialty Hat Braider Hematology/Oncology 09/25/18 [place] [address] [place] [address] Physician Hematology/Oncology 09/25/18 Ivette Diaz APRN.PLASTERING SUPERVISOR [address] [facility] [place] [address] Ortho Rn Family Medicine 09/07/24 Kim Browning APRN.PLASTERING SUPERVISOR [address] [place] [address] Ortho Rn Family Medicine 09/07/24 Reason for Visit (unrecogniz ed section and content) Reason Comments Bladder Cancer BCG Specialty Diagnoses / Procedures Referred By Ashley t Referred To Contact Diagnoses Malignant neoplasm of upper-outer quadrant of right breast in female, estrogen receptor positive (HCC) Nikole Bailey MD [address] [place] [address] Phone: tel: fax: Nikole Bailey MD [address] [place] [address] Phone: tel: fax: Referral ID Status Reason Start Date Expiration Date V isits Requested Visits Authorized [id number] Authorized 01/26/2025 04/26/2025 99 99 Reason Comments PT Progress Note PT Discharge Specialty Diagnoses / Procedures Referred By Ashley vance Referred To Contact [facility] Diagnoses Encounter for follow-up surveillance of breast cancer Personal history of malignant neoplasm of breast Procedures CONSULT TO LYMPHEDEMA THERAPY OFFICE/OUTPATIENT [facility] 60 MINUTES Radha Her, NARDA.PLASTERING SUPERVISOR [address] [place] [address] [facility] [address] [place] [address] Referral ID Status Reason Start Date Expiration Date Visits Requested Visits Authorized [id number] Authorized Auto-Generat ed Referral 07/16/2025 99 99 Reason Comments Macular Hole Follow Up Yearly Follow Up OU Reason Comments Established Patient Reason Comments Knee Pain Left Reason Comments Patient Update Patient Question Reason Comments Acute Visit Cough, headache, arturo al drainage/ had covid recently Reason Comments Appointment Reason Comments Well Woman Reason Comments left ankle pain Reason Comments Cough Cough and congestion x 2 days-exposed to Flu A Reason Comments Results Reason Comments Neck Pain X 5 weeks; chiroprac tor made worse; doing ice and stretching Reason Comments Results Xray Reason Comments Patient Question Reason Comments Orders Reason Comments Pessary Reason Comments Foreign Body Sensation Reason Comments Follow Up Reason Comments PT Eval Specialty Diagnoses / Procedures Referred By Contac t Referred To Contact PHYSICAL THERAPY Diagnoses Rectocele Cystocele, midline Procedures CONSULT TO PHYSICAL THERAPY PHYSICAL THERAPY EVALUATION HIGH COMPLEX 45 MINS Aileen Albright, FUR FINISHER.PLASTERING SUPERVISOR [address] [place] [address] Pt [facility] [address] [place] [address] Referral ID Status Reason Start Date Expiration Date V isits Requested Visits Authorized [id number] Authorized 01/23/2023 01/23/2024 99 99 Reason Comments Physical Therapy Specialty Diagnoses / Procedures [facility] To Contact PHYSICAL THERAPY Diagnoses Rectocele Cystocele, midline Procedures CONSULT TO PHYSICAL THERAPY PHYSICAL THERAPY EVALUATION HIGH COMPLEX 45 MINS Aileen Albright, FUR FINISHER.PLASTERING SUPERVISOR [address] [place] [address] Pt [facility] [address] [place] [address] Reason Onset Date Comments Refill Request 05/13/2023 Reason Comments Consult Rectocele Specialty Diagnoses / Procedures Referred By Contac t Referred To Contact Diagnoses Rectocele Procedures CONSULT TO URO GYNECOLOGY OFFICE/OUTPATIENT [facility] MDM 60-74 MINUTES Jailene Kam MD [address] [place] [address] Referral ID Status Reason Start Date Expiration Date V isits Requested Visits Authorized [id number] Closed PCP Requested Referral Auto-Generated Referral 12/26/2022 12/26/2023 1 1 Reason Comments Refill Request Reason Comments Research [id number] Presentati on Reason Comments Numbness/Tingling Reason Comments Comprehensive Eye Exam Reason Comments Anxiety Has lorazepam PRN wo ndering about daily med? Medication Question Discuss supplements and if needed. Reason Onset Date Comments Refill Request 02/14/2024 Reason Comments Established Patient Reason Onset Date Comments Refill Request 02/18/2024 Reason Comments Macular Hole Follow Up Yearly f/u Reason Comments Leg Pain Reason Comments salzmann's nodule Reason Comments Right lower leg pain Reason Comments superficial keratectomy Here today for s uperficial K OU. Patient interested in script for oxycodone in case she needs it. [facility] stable OU. Reason Comments Follow Up For S/p SUP K OU 4OFLOX. QID OUBCLOUStates eyes god today, visio not back to 100% yet. Reason Comments Post-op (Ophthalmology) Right Eye Post-op (Ophthalmology) Left Eye Reason Comments ER F/U Reason Comments 6 Month Exam Reason Comments PT Eval Reason Onset Date Comments Refill Request 12/07/2024 Reason Comments Follow Up New Patient Reason Comments Hat Braider - Other Preparations For Surgery Reason Comments Pre-Op Exam Reason Comments Returning Patient's Call Reason Comments Bladder Cancer Bcg instillation Reason Onset Date Comments Refill Request 02/25/2025 Reason Comments Follow Up Reason Comments Macular Hole Follow Up Lv -Dr Gonzales -Lv -Dr Brown -02/27/2024 Reason Comments Cystoscopy-1 Reason Comments Bladder Instillation Treatment Specialty Diagnoses / Procedures Referred By Ashley t Referred To Contact Diagnoses Malignant neoplasm of overlapping sites of bladder (HCC) Nikole Bailey MD [address] [place] [address] Phone: tel: fax: Urology [address] [place] [address] Phone: tel: Referral ID Status Reason Start Date Expiration Date V isits Requested Visits Authorized [id number] Authorized 05/24/2025 08/22/2025 99 99 Goals (unrecognized section and content) Goals may be documented in a n alternate sectionGoals may be documented in an alternate section INFORMATION SOURCE (unrecogn ized section and content) DATE CREATED AUTHOR 01/03/2025 [facility] DATE CREATED AUTHOR AUTHOR'S ORGANIZ ATION 01/10/2025 [facility] DATE CREATED AUTHOR AUTHOR'S ORGANIZ ATION 07/31/2025 [facility] FOR RECORDS PERTAINING TO PATIENTS WHO ARE OR HAVE BEEN ENROLLED IN A CHEMICAL DEPENDENCY/SUBSTANCEABUSE PROGRAM, SOME INFORMATION MAY BE OMITTED. This clinical summary was aggregated from multiple sources. Caution should be exercised in using it in the provision of clinical care. This summary normalizes information from multiple sources, and as a consequence, information in this document may materially change the coding, format and clinical context of patient data. In addition, data may be omitted in some cases. CLINICAL DECISIONS SHOULD BE BASED ON THE PRIMARY CLINICAL RECORDS. [employer] [facility]. provides no warranty or guarantee of the accuracy or completeness of information in this document.
[2025-09-25] MEDS: 0.9% Normal Saline (1000mL) 1,000 ML 999 ML IV (16:19)
[2025-09-25 16:30] LABS: Mucous, Urine 0 SEEN /hpf (<or=2+); Red Blood Cells-Urine 0 SEEN /hpf (0-5)
[2025-09-25 16:32] LABS: Color, Urine Yellow (Yellow); Glucose, Dipstick Normal (Normal); Ketone-Dipstick Negative (Negative); Leukocyte Esterase-Dipstick Negative /ul (Negative); Nitrite-Dipstick Negative (Negative); Occult Blood-Urine Negative /ul (Negative); Protein-Dipstick 15 mg/dl (Negative); Specific Gravity, Urine 1.015 (1.002-1.030); Urine Bilirubin Dipstick Negative (Negative)
[2025-09-25 16:41] LABS: Squamous Epithelial Cells - UA 0-5 SEEN /hpf (5-10)
[2025-09-25 17:01] LABS: Magnesium 2.2 mg/dL (1.5-2.2)
[2025-09-25 17:10] LABS: Troponin T High Sens 2 HR 9 ng/L (<=14)
--- NOTE | 2025-09-25 17:27 | ECHOCS_ITS ---
Reason For Study Reason For Study: Syncope Procedure This was a 2D Doppler, Color Flow transthoracic echocardiogram. The patient is in sinus rhythm. The study was technically difficult. Contrast injection was performed. Exam performed portable in patient room. Left Ventricle Mildly dilated left ventricle. Left ventricular EF by Baca's biplane: 59%. E/e' suggest normal filling pressures. No regional wall motion abnormalities noted. Right Ventricle Normal right ventricle. Normal systolic function. RVSP is estimated at: 30 to 35 mmHg. Atria The left and right atria are normal. Right atrial pressure estimated at: 3 mmHg. Mitral Valve Normal mitral valve. Trace mitral regurgitation. No mitral stenosis. Tricuspid Valve Normal tricuspid valve. Trace tricuspid regurgitation. No tricuspid stenosis. Aortic Valve Trileaflet aortic valve. No aortic regurgitation. No hemodynamically significant aortic stenosis. Pulmonic Valve Normal pulmonic valve. Trace pulmonic regurgitation. No pulmonic stenosis. Great Vessels Normal sized aortic root. Normal ascending aorta. Pericardium/Pleural No pericardial effusion. Medication Diluted definity 1.5ml given slow IV push to enhance endocardial definition. MMode/2D Measurements & Calculations LVIDd: 4.1 cm IVSd: 1.2 cm Ao root diam: 2.8 cm LVIDs: 2.6 cm LVPWd: 0.95 cm RVDd: 3.6 cm FS: 35.8 % LAV(MOD-bp): 37.7 ml LVAd ap4: 32.4 cm2 SV(MOD-sp4): 61.5 ml LAV(MOD-bp) Indexed: 22.2 ml/m2 LVLd ap4: 7.6 cm SI(MOD-sp4): 36.1 ml/m2 LAV(MOD-sp2): 34.6 ml EDV(MOD-sp4): 108.2 ml LAV(MOD-sp4): 36.4 ml EDV(sp4-el): 117.3 ml LVAs ap4: 18.8 cm2 LVLs ap4: 6.3 cm ESV(MOD-sp4): 46.8 ml ESV(sp4-el): 47.2 ml EF(MOD-sp4): 56.8 % EF(sp4-el): 59.8 % SV(sp4-el): 70.1 ml LA A4 area: 14.8 cm2 LA dimension(2D): 3.1 cm RA A4 area: 13.7 cm2 TAPSE: 1.9 cm Time Measurements MV dec time: 0.35 sec Doppler Measurements & Calculations MV E max rick: 64.4 cm/sec Lat Peak E' Rick: 7.1 cm/sec Med Peak E' Rick: 6.7 cm/sec MV A max rick: 97.1 cm/sec E/E' lat: 9.1 E/E' med: 9.6 MV E/A: 0.66 MV V2 max: 105.7 cm/sec MV dec slope: 193.9 cm/sec2 Ao V2 max: 140.4 cm/sec MV max P.5 mmHg Ao max P.9 mmHg MV V2 mean: 44.2 cm/sec Ao V2 mean: 102.8 cm/sec MV mean P.97 mmHg Ao mean P.6 mmHg MV V2 VTI: 27.7 cm Ao V2 VTI: 29.9 cm AV (velocity ratio): 0.76 LV V1 max: 94.4 cm/sec PA V2 max: 75.9 cm/sec TR max rick: 269.6 cm/sec LV V1 max P.6 mmHg TR max P.1 mmHg LV V1 mean P.9 mmHg LV V1 mean: 63.5 cm/sec LV V1 VTI: 22.7 cm ECHO/Echo Complete W/ Contrast Interpretation Summary Normal left ventricular systolic function with EF by Baca's biplane: 59%. E/e' suggest normal left ventricular filling pressures Normal right ventricular systolic function No hemodynamically significant valvular disease Ordering Physician: Jyoti Maradiaga Performed By: Adolfo Puente RCS
[2025-09-25] MEDS: 0.9% Normal Saline (1000mL) 1,000 ML 100 ML IV (17:56)
[2025-09-25 18:57] LABS: Troponin T High Sens 4 HR 9 ng/L (<=14)
[2025-09-26 04:45] VITALS: BP 138/74; BP 146/68; BP 146/84; PULSE 75; PULSE 78; PULSE 85; RESP 14; TEMP 36.4; O2SAT 97
[2025-09-26 05:39] VITALS: BMI 24.8
[2025-09-26 05:41] LABS: Hematocrit 40.6 % (37-47); Hemoglobin 13.7 g/dL (12.0-15.0); Immature Granulocytes Count 0.020 X10^3/uL (0.0-0.0); Mean Corp Hgb Conc 33.7 g/dL (32-36); Mean Corpuscular Volume 99.3 fL (81-99); Mean Platelet Vol. 10.5 fl (6.2-12.0); NRBC Flagged by Analyzer 0 % (0-5); Platelet Count 197 K/mm3 (150-450); RBC Distribution Width CV 13.0 % (11.6-14.6); RBC Distribution Width SD 47.1 fl (35.1-43.9); Red Blood Count 4.09 M/mm3 (4.2-5.4); White Blood Count 6.1 K/mm3 (4.4-11.0)
[2025-09-26 06:49] LABS: AST(SGOT) 25 U/L (<=31); Alanine Aminotransfer ALT/SGPT 20 U/L (<=34); Albumin, Serum 4.2 g/dL (3.4-4.8); Alkaline Phosphatase 76 U/L (35-104); Anion Gap 11 (7-18); BUN 10 mg/dL (4-19); BUN/Creat Ratio 14.6 RATIO (10-20); Calcium,Total 9.2 mg/dL (7.6-11.0); Carbon Dioxide 23.4 mmol/L (20.0-29.0); Chloride 108 mmol/L (96-106); Cholesterol 140 mg/dL (<=200); Estimated Creatinine Clearance 58.43 ml/min (50-250); Globulin 2.3 g/dL (2.2-4.2); Glucose 94 mg/dL (70-99); Low Density Lipoprotein Calc. 61 mg/dL; Potassium 4.0 mmol/L (3.5-5.1); Triglycerides 123 mg/dL; Very Low Density Lipoprotein 25 mg/dL (5-40); cholesterol:hdl ratio screen 2.46
[2025-09-26 08:19] VITALS: BP 144/75; PULSE 65; RESP 12; TEMP 36.7; O2SAT 96
--- NOTE | 2025-09-26 10:31 | NURSING ---
Pt ambulating in trent with . Denies any dizziness.
--- NOTE | 2025-09-26 10:32 | PN.HOSP_ITS ---
Subjective Subjective Doing well, no issues overnight. No dizziness Objective Data Objective Data Vital Signs: Vital Signs Temp Pulse Resp BP Pulse Ox O2 Del Method 98.1 F 65 12 144/75 H 96 Room Air 09/26/25 08:19 09/26/25 08:19 09/26/25 08:19 09/26/25 08:19 09/26/25 08:19 09/26/25 09:41 Oxygen Delivery Method Room Air Weight: 144 lb 13.499 oz Body Mass Index (BMI) 24.8 Intake & Output: Intake and Output for Last 24 Hours 09/25/25 09/26/25 09/27/25 03:59 03:59 03:59 Intake Total 2240 / 2240 60 / 60 Balance 2240 / 2240 60 / 60 Lab / Micro Data 09/26/25 05:10 09/26/25 05:10 Labs: Laboratory Results - last 24 hr 09/25/25 14:40: WBC 7.3, RBC 4.14 L, Hgb 14.1, Hct 41.1, MCV 99.3 H, MCH 34.1 H, MCHC 34.3, RDW Std Deviation 45.8 H, RDW Coeff of Kavon 12.8, Plt Count 190, MPV 10.1, Immature Gran % (Auto) 0.300, Neut % (Auto) 80.1 H, Lymph % (Auto) 10.9 L, [place] % (Auto) 4.9, Eos % (Auto) 3.3, Baso % (Auto) 0.5, Absolute Neuts (auto) 5.9, Absolute Lymphs (auto) 0.80 L, Nucleated RBC % 0, Sodium 138, Potassium 4.1, Chloride 101, Carbon Dioxide 26.5, Anion Gap 11, BUN 10, Creatinine 0.75, Estim Creat Clear Calc 56.38, Est GFR (MDRD) Non-Af 85, BUN/Creatinine Ratio 13.3, Glucose 125 H, Calcium 10.0, Magnesium 2.2, Troponin T High Sens 10 09/25/25 16:25: Urine Color Yellow, Urine Clarity Clear, Urine pH 8.0, Ur Specific [place] 1.015, Urine Protein 15 H, Urine Glucose (UA) Normal, Urine Ketones Negative, Urine Occult Blood Negative, Urine Nitrite Negative, Urine Bilirubin Negative, Urine Urobilinogen Normal, Ur Leukocyte Esterase Negative, Urine RBC 0 SEEN, Urine WBC 0 SEEN, Ur Squamous Epith Cells 0-5 SEEN, Urine Bacteria 0 SEEN, Urine Mucus 0 SEEN 09/25/25 16:46: Troponin T Hi Sens 2 Hr 9 09/25/25 18:29: Troponin T Hi Sens 4Hr 9 09/26/25 05:10: WBC 6.1, RBC 4.09 L, Hgb 13.7, Hct 40.6, MCV 99.3 H, MCH 33.5 H, MCHC 33.7, RDW Std Deviation 47.1 H, RDW Coeff of Kavon 13.0, Plt Count 197, MPV 10.5, Immature Gran % (Auto) 0.300, Neut % (Auto) 54.2, Lymph % (Auto) 29.7, [place] % (Auto) 8.0, Eos % (Auto) 7.0 H, Baso % (Auto) 0.8, Absolute Neuts (auto) 3.3, Absolute Lymphs (auto) 1.81, Nucleated RBC % 0, Sodium 142, Potassium 4.0, Chloride 108 H, Carbon Dioxide 23.4, Anion Gap 11, BUN 10, Creatinine 0.68 L, Estim Creat Clear Calc 58.43, Est GFR (MDRD) Non-Af 92, BUN/Creatinine Ratio 14.6, Glucose 94, Calcium 9.2, Total Bilirubin 0.48, AST 25, ALT 20, Alkaline Phosphatase 76, Total Protein 6.5, Albumin 4.2, Globulin 2.3, Albumin/Globulin Ratio 1.9, Triglycerides 123, Cholesterol 140, LDL Cholesterol, Calc 61, VLDL Cholesterol 25, HDL Cholesterol 57, Cholesterol/HDL Ratio 2.46 Radiography Diagnostic Testing: Radiology Impression Chest X-Ray 09/25/25 14:31 IMPRESSION: No acute cardiopulmonary process. Reading Location: [id number] Brain CT 09/25/25 15:30 IMPRESSION: No acute intracranial process. Reading Location: [facility] Cervical Spine CT 09/25/25 15:30 IMPRESSION: No acute cervical fracture or subluxations. [id number] multilevel degenerative changes of the cervical spine as above. Reading Location: [facility] Rhythm Strip Rhythm Strip: Sinus Rhythm Rate: 66 Ectopy: None Physical Exam Narrative General: Alert, Oriented x3, Cooperative, No apparent distress HEENT: Atraumatic, PERRLA, EOMI, Normocephalic Oral: Moist Mucosa Neck: Supple, No JVD Lungs: Diminished, Normal air movement, No rhonchi, No wheeze, No rales Cardiovascular: Regular rate, Regular Rhythm, Normal S1, Normal S2, No murmurs Abdomen: Soft, Non Tender, Non-Distended, No Hepato-splenomegaly Extremities: No edema, Capillary Refill Less than 3 Seconds Skin: No rashes, No breakdown Musculoskeletal: No Tenderness to Palpation of Joints or Extremities Neurological: No focal neurological deficits, moves all extremities Psych/Mental Status: Normal Affect, Appropriate Assessment & Plan Assessment/Plan (1) Syncope: PLAN: Plan 1. Vasovagal syncope ? Unlikely to be of cardiac origin or seizures based on history, telemetry has been unremarkable ? Echo is pending tomorrow ? Orthostatic vital signs were negative today after fluids in the emergency room yesterday 2. History of breast cancer and current bladder cancer ? Undergoing treatment for her bladder cancer and she is status post partial mastectomy with a short course of radiation for her breast cancer ? Continue with outpatient follow-up 3. Hyperlipidemia ? Stable ? Continue with her home medications DVT: Lovenox Charges/Coding Visit Charges Inpatient E&M: 70447 Subs Hosp L2
[2025-09-26 12:35] VITALS: O2SAT 95
[2025-09-26 15:03] VITALS: BP 140/65; PULSE 75; RESP 12; TEMP 36.8; O2SAT 95
[2025-09-26] MEDS: Albuterol 2.5 MG/3 ML VIAL.NEB. INHALATION (16:48)
[2025-09-26 16:50] VITALS: PULSE 68; RESP 14
[2025-09-26 20:44] VITALS: BP 140/69; PULSE 68; RESP 17; TEMP 36.6; O2SAT 97
[2025-09-26] MEDS: 0.9% Saline Lock 10 ML Syringe IV (20:51)
[2025-09-27 03:15] VITALS: BP 124/70; PULSE 69; RESP 16; TEMP 36.5; O2SAT 96
[2025-09-27 06:00] VITALS: BMI 24.9
[2025-09-27 08:57] VITALS: BP 144/73; PULSE 70; RESP 16; TEMP 36.1; O2SAT 94
--- NOTE | 2025-09-27 09:29 | DCINST_ITS ---
Discharge Instructions DC O2, CPAP, BIPAP needs Home O2 Discharge instructions: No Dressing / Incision Discharge Activity: Return to Normal Activity Dressing / Incision Call your doctor if you observe: Fever of 101 or Higher, Shortness of breath, Dizziness, Fainting spells, Swelling in the ankles, Chest pain and Increased palpitations (irregular heartbeat) Follow Up Care Test Results: Test results from this visit will be discussed in further detail at your follow- up appointment, if applicable. Discharge Plan Admission Admit Date/Time: 09/25/25 15:50 Attending Provider: Chirag Mcrae Primary Care Provider: Abhishek Benavides Consulting Providers: Jyoti Maradiaga Discharge Orders/Prescriptions Prescriptions: Continued gabapentin 300 mg capsule 300 mg PO QHS rosuvastatin 10 mg tablet 10 mg PO QHS gabapentin 100 mg capsule 200 mg PO DAILY Rx Instructions: 200 mg in the morning and 300 mg in the evening orally; Vitamin D (with calcium) PO DAILY calcium 1 tablet PO DAILY PreserVision AREDS-2 250-90-40-1 mg capsule 1 tab PO BID Refresh Eye Itch Relief azelastine 0.05 % drops 1 drp EACH EYE BID PRN (Reason: itchy) albuterol inhalation PRN PRN (Reason: asthma) acetaminophen [Acetaminophen Extra Strength] 500 mg tablet 1,000 mg PO Q6H PRN (Reason: pain) Referrals / Follow Up: Abhishek Benavides MD [Primary Care Provider, Medical] - Within 1 Week Disposition Disposition (needs filled in before D/C Order can be placed): Home, Self Care
--- NOTE | 2025-09-27 09:35 | CASEMGMT ---
RN SHILOH reviewed DC plan, 6 clicks - 24, pt on RA. Pt in observation status, HUE MATAMOROS asked DC planning manager to complete causey. No other needs identified.
--- NOTE | 2025-09-27 10:48 | CASEMGMT ---
SNYDER Met with patient to complete SNYDER form. SNYDER form and its content were verbally explained and patient's questions were answered to the best of my ability.? Patient voiced understanding and signed SNYDER form.? Patient provided a copy of signed SNYDER form and original placed in patient's chart.? Patient had no further questions. Nelly Adames, Discharge Planning Asst
--- NOTE | 2025-09-27 11:22 | PHA.DC.MR.R ---
Pharmacy [place] Med Reconciliation Pharmacy Service has performed discharge medication reconciliation for this patient. The patient's discharge medication list was reviewed for discrepancies and discrepancies were resolved. Medications at Discharge Home Medications gabapentin 300 mg capsule 300 mg PO QHS 06/10/24 rosuvastatin 10 mg tablet 10 mg PO QHS 06/10/24 Refresh Eye Itch Relief 09/25/25 Vitamin D (with calcium) PO DAILY 09/25/25 acetaminophen 500 mg tablet (Acetaminophen Extra Strength) 1,000 mg PO Q6H PRN pain 09/25/25 albuterol inhalation PRN PRN asthma 09/25/25 azelastine 0.05 % eye drops 1 drp EACH EYE BID PRN itchy 09/25/25 calcium 1 tablet PO DAILY 09/25/25 gabapentin 100 mg capsule 200 mg PO DAILY 09/25/25 vit C 250 mg-vit E 90 mg-zinc 40 mg-copper 1 [id number] capsule (PreserVision AREDS-2) 1 tab PO BID 09/25/25
[2025-09-27 12:52] VITALS: BP 138/73; PULSE 70; RESP 16; O2SAT 98
--- NOTE | 2025-09-27 14:17 | PCM.DC.SUM ---
Providers Date of Admission: 09/25/25 Primary Care Physician: Dr. Abhishek Benavides MD Reason For Visit: SYNCOPE Diagnosis Discharge Diagnosis (1) Syncope: Status: Acute Code(s): R55 - Syncope and collapse Medications at Discharge Home Medications gabapentin 300 mg capsule 300 mg PO QHS 06/10/24 rosuvastatin 10 mg tablet 10 mg PO QHS 06/10/24 Refresh Eye Itch Relief 09/25/25 Vitamin D (with calcium) PO DAILY 09/25/25 acetaminophen 500 mg tablet (Acetaminophen Extra Strength) 1,000 mg PO Q6H PRN pain 09/25/25 albuterol inhalation PRN PRN asthma 09/25/25 azelastine 0.05 % eye drops 1 drp EACH EYE BID PRN itchy 09/25/25 calcium 1 tablet PO DAILY 09/25/25 gabapentin 100 mg capsule 200 mg PO DAILY 09/25/25 vit C 250 mg-vit E 90 mg-zinc 40 mg-copper 1 [id number] capsule (PreserVision AREDS-2) 1 tab PO BID 09/25/25 Hospital Course Operations None Procedures 2-D Echocardiogram Summary of Care Provided Minutes Spent on Discharge: 36 Hospital Course: Per HPI: The patient is a 75 y/o F w/ PMHx: CKD stage II per previous GFR trending 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 and short course radiation 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, HLD, Asthma w/ chronic allergic rhinitis/postnasal drip with chronic cough who presents to [facility] on 09/25/2025 with history of onset at approximate 12:45 PM on day of presentation lightheadedness with BP initially taken per her 65/50 with a heart rate of 62 with some improvement following as she sat there and rested however when she went to get up she passed out reportedly lasting 20 seconds although her states her eyes were open but she was not responsive with no seizure-like activity and no trauma with no recent URI illness nor any nausea, emesis or diarrhea nor any fevers or chills reportedly eating appropriately prompting eventual ED evaluation be cautious. Patient did report that when she was alert following the event there was no persistent confusion but she was very diaphoretic. Per discussion with patient family her [id number] with whom she was at [place] with did have an upper respiratory type illness described as a cold although herself is feeling improved. That is reportedly the only ill recent contact she has been around. Workup in the ED included T98.2, heart 63, BP 135/77, respiratory rate 16, 99% on room air, orthostatics not marked appearing, most recent repeat vitals heart rate 76, BP 152/74, CBC with WBC 7.3, hemoglobin 14.1, platelet 190 with lymphopenia, CMP with glucose 125, BUN/creatinine 10/0.75, GFR 85, troponin 10, chest x-ray with no acute cardiopulmonary findings, EKG with sinus rhythm with no acute evidence of ischemia. CT head and CT neck pending upon requested evaluation of patient. ED physician noted intention to review these to ensure no concerning findings prior to progression to admission to PCU. In the ED patient administered IVFs. Hospital Course: 1. Vasovagal syncope?75-year-old female presented to the hospital with an episode of syncope. Her was getting dressed to take her to the hospital because she was feeling lightheaded and dizzy when he heard a thud. He responded very quickly and she was not having seizure-like activities. She denied any palpitations prior to the event and she had not eaten prior to the event. She did standing in the kitchen talking to her son when she developed the lightheadedness and dizziness. Orthostatic vital signs on admission after fluids was negative. Echo on the day of discharge was also unremarkable with an EF of 59%. She has had no further episodes of dizziness, and telemetry was negative for any palpitations. I discussed with her the possibility for discharge today and she expressed understanding of the risks and benefits of going home and would like to go home today. I recommend outpatient follow-up with her PCP in 3 to 5 days. 2. Hyperlipidemia, history of breast cancer, current bladder cancer all chronic medical conditions which complicate her care. Her home medications were continued where appropriate. Physical Exam Narrative General: Alert, Oriented x3, Cooperative, No apparent distress HEENT: Atraumatic, PERRLA, EOMI, Normocephalic Oral: Moist Mucosa Neck: Supple, No JVD Lungs: Diminished, Normal air movement, No rhonchi, No wheeze, No rales Cardiovascular: Regular rate, Regular Rhythm, Normal S1, Normal S2, No murmurs Abdomen: Soft, Non Tender, Non-Distended, No Hepato-splenomegaly Extremities: No edema, Capillary Refill Less than 3 Seconds Skin: No rashes, No breakdown Musculoskeletal: No Tenderness to Palpation of Joints or Extremities Neurological: No focal neurological deficits, moves all extremities Psych/Mental Status: Normal Affect, Appropriate Weight / BMI Weight Weight: 145 lb 1.027 oz Body Mass Index (BMI) 24.9 ABG / Lab / Microbiology Data 09/26/25 05:10 09/26/25 05:10 Radiography Diagnostic Testing: Radiology Impression Echocardiogram 09/25/25 17:27 Interpretation Summary Normal left ventricular systolic function with EF by Baca's biplane: 59%. E/e' suggest normal left ventricular filling pressures Normal right ventricular systolic function No hemodynamically significant valvular disease Ordering Physician: Jyoti Maradiaga Performed By: Adolfo Puente RCS D/C Instructions Call your doctor if you observe: Fever of 101 or Higher, Shortness of breath, Dizziness, Fainting spells, Swelling in the ankles, Chest pain and Increased palpitations (irregular heartbeat) DC O2, CPAP, BIPAP Needs Home O2 Discharge instructions: No Meaningful Use Info Meaningful Use Meaningful Use Diagnoses (Choose all that apply): None applicable Discharge Plan Admission Admit Date/Time: 09/25/25 15:50 Attending Provider: Chirag Mcrae Primary Care Provider: Abhishek Benavides Consulting Providers: Jyoti Maradiaga Discharge Orders/Prescriptions Prescriptions: Continued gabapentin 300 mg capsule 300 mg PO QHS rosuvastatin 10 mg tablet 10 mg PO QHS gabapentin 100 mg capsule 200 mg PO DAILY Rx Instructions: 200 mg in the morning and 300 mg in the evening orally; Vitamin D (with calcium) PO DAILY calcium 1 tablet PO DAILY PreserVision AREDS-2 250-90-40-1 mg capsule 1 tab PO BID Refresh Eye Itch Relief azelastine 0.05 % drops 1 drp EACH EYE BID PRN (Reason: itchy) albuterol inhalation PRN PRN (Reason: asthma) acetaminophen [Acetaminophen Extra Strength] 500 mg tablet 1,000 mg PO Q6H PRN (Reason: pain) Referrals / Follow Up: Abhishek Benavides MD [Primary Care Provider, Medical] - Within 1 Week Disposition Disposition (needs filled in before D/C Order can be placed): Home, Self Care Charges/Coding Visit Charges Inpatient E&M: 75871 Disch Hosp >30min
== END 2025-09-27 13:25 | disposition home or self-care (01) ==
LOC: ED 15:41 → PCU 16:15
PROVIDERS: Admitting Provider Family Medicine; Emergency Provider Emergency Medicine; PCP Family Medicine; Visit Provider Family Medicine
DX: R55 Syncope and collapse (principal); C67.9 Malignant neoplasm of bladder, unspecified; I95.9 Hypotension, unspecified; Z79.899 Other long term (current) drug therapy; J45.909 Unspecified asthma, uncomplicated; E78.00 Pure hypercholesterolemia, unspecified; G62.9 Polyneuropathy, unspecified; N18.2 Chronic kidney disease, stage 2 (mild); R03.0 Elevated blood-pressure reading, without diagnosis of hypertension
CPT/HCPCS: 36415; 70450; 71046; 72125; 80048; 80053; 80061; 81001; 83735; 84484; 85025; 93005; 93306; 94640; 96360; 96361; 99221; 99285; Q9957; A4216; C8929; G0378